=== PATIENT | female | born 1990 | race African-American/Black ===

== ENCOUNTER 2016-11-02 17:22 | Inpatient (IN) | payer OTHER ==
[2016-11-02] MEDS ORDERED: LEVOFLOXACIN 750MG-D5W PMX 750 MG in DEXTROSE/WATER 1 150ML.BAG IVPB STA (19:24)
--- NOTE | 2016-11-02 19:35 | ED ---
Skin/Abscess/FB HPI - General Chief complaint: Skin/Abscess/Foreign Body Stated complaint: Abcess Time Seen by Provider: 11/02/16 19:02 Source: patient, RN notes reviewed Mode of arrival: ambulatory Limitations: no limitations - History of Present Illness Initial comments: 26-year-old female presents emergency Department chief complaint abscess. Patient states started last 3-4 days. Patient states that she has an abscess in her buttocks, vaginal region. Patient states there is severe amount of swelling. Patient states that she's never had any like this in the past. Denies any MRSA VRE. Patient states she is so unbearable that she cannot sit, walk or stand. Patient denies fever, chills. - Related Data Home Medications Medication Instructions Recorded Confirmed No Known Home Medications [No 11/02/16 11/02/16 Known Home Medications] Allergies Allergy/AdvReac Type Severity Reaction Status Date / Time latex Allergy Rash/Hives Verified 11/02/16 19:18 Review of Systems ROS Statement: Those systems with pertinent positive or pertinent negative responses have been documented in the HPI. ROS Other: All systems not noted in ROS Statement are negative. Past Medical History Past Medical History: No Reported History History of Any Multi-Drug Resistant Organisms: None Reported Past Surgical History: Section, Cholecystectomy, Tubal Ligation Additional Past Surgical History / Comment(s): 2008 AND 2015 (c/s) and 2010 ( cholecyst) Past Anesthesia/Blood Transfusion Reactions: No Reported Reaction Past Psychological History: Anxiety, Bipolar, Depression Additional Psychological History / Comment(s): no meds currently with preg. prev on seraquel, xanax and klonipen. ON HOLD UNTIL FOLLOW UP WITH DR. DONNELLY Smoking Status: Current every day smoker Past Alcohol Use History: None Reported Past Drug Use History: None Reported - Past Family History Mother Family Medical History: Asthma, COPD, Diabetes Mellitus, Hypertension Additional Family Medical History / Comment(s): depression, anxiety, sleep apnea , Father Family Medical History: Hypertension Additional Family Medical History / Comment(s): arthritis General Exam Limitations: no limitations General appearance: alert, in no apparent distress Head exam: Present: atraumatic, normocephalic, normal inspection Respiratory exam: Present: normal lung sounds bilaterally. Absent: respiratory distress, wheezes, rales, rhonchi, stridor Cardiovascular Exam: Present: regular rate, normal rhythm, normal heart sounds. Absent: systolic murmur, diastolic murmur, rubs, gallop, clicks GI/Abdominal exam: Present: soft, normal bowel sounds. Absent: distended, tenderness, guarding, rebound, rigid External exam: Present: other (Exam performed with an RN there is diffuse swelling and tenderness noted from the lower dental region towards her rectum with an area of fluctuance) Neurological exam: Present: alert, oriented X3, CN II-XII intact Skin exam: Present: warm, dry, intact, normal color. Absent: rash Course Vital Signs 11/02/16 17:59 Temperature 99.5 F Pulse Rate 89 Respiratory 20 Rate Blood Pressure 137/73 O2 Sat by Pulse 100 Oximetry Procedures - Incision & Drainage Consent Obtained: verbal consent Site: vulva/vagina Size (cm): 5 Anesthetic Used: lidocaine 1%, without epi Amount (mLs): 3 I&D Cleaning Method: Chloroprep Sterile Field Used?: Yes Scalpel Used: #11 I&D Drainage Obtained: Pus, Blood Patient Tolerated Procedure: well Medical Decision Making - Lab Data Result diagrams: 11/02/16 19:25 11/02/16 19:25 Lab Results 11/02/16 11/02/16 Range/Units 19:25 19:25 WBC 15.7 H (3.8-10.6) k/uL RBC 4.66 (3.80-5.40) m/uL Hgb 13.1 (11.4-16.0) gm/dL Hct 41.8 (34.0-46.0) % MCV 89.7 (80.0-100.0) fL MCH 28.0 (25.0-35.0) pg MCHC 31.3 (31.0-37.0) g/dL RDW 14.6 (11.5-15.5) % Plt Count 339 (150-450) k/uL Neutrophils % 83 % Lymphocytes % 11 % Monocytes % 3 % Eosinophils % 2 % Basophils % 0 % Neutrophils # 13.1 H (1.3-7.7) k/uL Lymphocytes # 1.8 (1.0-4.8) k/uL Monocytes # 0.5 (0-1.0) k/uL Eosinophils # 0.3 (0-0.7) k/uL Basophils # 0.1 (0-0.2) k/uL Hypochromasia Slight Sodium 142 (137-145) mmol/L Potassium 4.7 (3.5-5.1) mmol/L Chloride 106 (98-107) mmol/L Carbon Dioxide 26 (22-30) mmol/L Anion Gap 10 mmol/L BUN 13 (7-17) mg/dL Creatinine 0.62 (0.52-1.04) mg/dL Est GFR (MDRD) Af Amer >60 (>60 ml/min/1.73 sqM) Est GFR (MDRD) Non-Af >60 (>60 ml/min/1.73 sqM) Glucose 87 (74-99) mg/dL Calcium 9.4 (8.4-10.2) mg/dL Total Bilirubin 0.6 (0.2-1.3) mg/dL AST 21 (14-36) U/L ALT 15 (9-52) U/L Alkaline Phosphatase 57 (38-126) U/L Total Protein 7.3 (6.3-8.2) g/dL Albumin 4.1 (3.5-5.0) g/dL Disposition Clinical Impression: Abscess of groin, left Disposition: ADMITTED IP TO THIS HOSP
[2016-11-02 19:52] LABS: Basophils # (A) 0.1 k/uL (0-0.2); Basophils % (A) 0 %; CH 27.8; CHCM 31.2; Eosinophils # (A) 0.3 k/uL (0-0.7); Eosinophils % (A) 2 %; HCT 41.8 % (34.0-46.0); HGB 13.1 gm/dL (11.4-16.0); Hypochromasia Slight; Luc # (Auto) 0.11; Luc % (Auto) 1; Lymphocytes # (A) 1.8 k/uL (1.0-4.8); Lymphocytes % (A) 11 %; MCHC 31.3 g/dL (31.0-37.0); MCV 89.7 fL (80.0-100.0); Mean Platelet Volume 8.2; Monocytes # (A) 0.5 k/uL (0-1.0); Monocytes % (A) 3 %; Neutrophils # (A) 13.1 k/uL (1.3-7.7); Neutrophils % (A) 83 %; RBC 4.66 m/uL (3.80-5.40); RDW 14.6 % (11.5-15.5); WBC 15.7 k/uL (3.8-10.6); WBC (Perox) 16.59
[2016-11-02 20:01] LABS: ALT 15 U/L (9-52); AST 21 U/L (14-36); Alkaline Phosphatase 57 U/L (38-126); Anion Gap 10 mmol/L; Blood Urea Nitrogen 13 mg/dL (7-17); Calcium 9.4 mg/dL (8.4-10.2); Carbon Dioxide 26 mmol/L (22-30); Chloride 106 mmol/L (98-107); Glucose 87 mg/dL (74-99); Non-African American GFR(MDRD) >60 (>60 ml/min/1.73 sqM); Potassium 4.7 mmol/L (3.5-5.1); Sodium 142 mmol/L (137-145); Total Bilirubin 0.6 mg/dL (0.2-1.3); Total Protein 7.3 g/dL (6.3-8.2)
--- NOTE | 2016-11-02 20:31 | US ---
EXAMINATION TYPE: US pelvic limited DATE OF EXAM: 11/02/2016 8:22 PM COMPARISON: NONE CLINICAL HISTORY: abscess. Patient can feel a lump in the perineal area x2 days. Pain TECHNOLOGIST IMPRESSION: Complex area visualized at the area of the patient's palpable lump measurin g 4.7 x 1.8 x 2.4 cm IMPRESSION: There is an approximate 5 x 2 cm predominantly cystic mass in the area of concern consis tent with abscess and less likely hematoma.
[2016-11-02] MEDS ORDERED: MORPHINE SULFATE 4 MG/ML SYRINGE IVP STA (21:09)
[2016-11-02] MEDS ORDERED: ONDANSETRON 4 MG/2 ML VIAL IVP STA (21:09)
[2016-11-02] MEDS ORDERED: ONDANSETRON 4 MG/2 ML VIAL IVP PRN (21:16)
[2016-11-02] MEDS ORDERED: NALOXONE 0.4 MG/ML 1 ML VIAL IV PRN (21:16)
[2016-11-02] MEDS ORDERED: ACETAMINOPHEN TAB 325 MG TAB PO PRN (21:16)
[2016-11-02 22:16] VITALS: BMI 37.5
[2016-11-03] MEDS: metroNIDAZOLE-NS PMX 500 MG in SALINE 1 100ML.BAG IVPB SCH ×4 (00:06→23:32)
[2016-11-03] MEDS: MORPHINE SULFATE 4 MG/ML SYRINGE IV PRN ×4 (01:28→20:59)
--- NOTE | 2016-11-03 10:16 | P.GSCN ---
History of Present Illness Consult date: 11/03/16 Reason for Consult: Perirectal abscess History of present illness: This is a 26-year-old female who presented to the emergency room with complaints of perirectal and groin pain. The patient was seen emergency room and underwent incision and drainage of a abscess. The patient received antibiotics overnight. She states she feels better this morning. Review of Systems - Constitutional Reports as per HPI Past Medical History Past Medical History: No Reported History History of Any Multi-Drug Resistant Organisms: None Reported Past Surgical History: Section, Cholecystectomy, Tubal Ligation Additional Past Surgical History / Comment(s): 2008 AND 2015 (c/s) and 2010 ( cholecyst) Past Anesthesia/Blood Transfusion Reactions: No Reported Reaction Past Psychological History: Anxiety, Bipolar, Depression Additional Psychological History / Comment(s): no meds currently with preg. prev on seraquel, xanax and klonipen. ON HOLD UNTIL FOLLOW UP WITH DR. DONNELLY Smoking Status: Current every day smoker Past Alcohol Use History: None Reported Past Drug Use History: None Reported - Past Family History Mother Family Medical History: Asthma, COPD, Diabetes Mellitus, Hypertension Additional Family Medical History / Comment(s): depression, anxiety, sleep apnea , Father Family Medical History: Hypertension Additional Family Medical History / Comment(s): arthritis Medications and Allergies Home Medications Medication Instructions Recorded Confirmed Type No Known Home Medications [No 11/02/16 11/02/16 History Known Home Medications] Allergies Allergy/AdvReac Type Severity Reaction Status Date / Time latex Allergy Rash/Hives Verified 11/02/16 22:08 Surgical - Exam Vital Signs Temp Pulse Resp BP Pulse Ox 99.5 F 89 20 137/73 100 11/02/16 17:59 11/02/16 17:59 11/02/16 17:59 11/02/16 17:59 11/02/16 17:59 - General well developed, no distress - ENT normal pinna - Neck no masses - Respiratory normal expansion - Cardiovascular Rhythm: regular - Abdomen Abdomen: soft, non tender - Integumentary Perineal areas examined. There is no evidence of cellulitis. There is a tender area on the left perirectal area. There is no fluctuant masses palpated. Results - Labs 11/02/16 19:25 11/02/16 19:25 Assessment and Plan Plan: Status post incision and drainage of perirectal abscess. Patient received IV antibiotic. At this point no further incision drainage is planned.
[2016-11-03 10:30] LABS: Basophils # (A) 0.1 k/uL (0-0.2); Basophils % (A) 1 %; CH 27.7; CHCM 30.5; Eosinophils # (A) 0.2 k/uL (0-0.7); Eosinophils % (A) 2 %; HGB 11.4 gm/dL (11.4-16.0); Hypochromasia Moderate; Luc # (Auto) 0.22; Luc % (Auto) 2; Lymphocytes # (A) 2.2 k/uL (1.0-4.8); Lymphocytes % (A) 21 %; MCH 27.5 pg (25.0-35.0); MCHC 30.1 g/dL (31.0-37.0); MCV 91.3 fL (80.0-100.0); Mean Platelet Volume 8.2; Monocytes # (A) 0.5 k/uL (0-1.0); Monocytes % (A) 5 %; Neutrophils # (A) 7.3 k/uL (1.3-7.7); Neutrophils % (A) 70 %; RBC 4.16 m/uL (3.80-5.40); RDW 14.7 % (11.5-15.5); WBC 10.5 k/uL (3.8-10.6); WBC (Perox) 9.45
[2016-11-03] MEDS: PANTOPRAZOLE 40 MG/10 ML VIAL IVP SCH (12:44)
[2016-11-03] MEDS ORDERED: HYDROmorphone 1 MG/ML 1 ML SYRINGE IVP PRN (14:13)
[2016-11-03] MEDS ORDERED: TEMAZEPAM 15 MG CAP PO PRN (14:13)
[2016-11-03] MEDS ORDERED: LORazepam 1 MG TAB PO PRN (14:13)
[2016-11-03] MEDS: HYDROcodone/APAP 5-325MG 1 EACH TAB PO PRN ×3 (14:33→23:32)
[2016-11-03] MEDS: NICOTINE 14MG/24HR PATCH TRANSDERM SCH (14:38)
[2016-11-03] MEDS: HEPARIN SODIUM,PORCINE 5,000 UNIT/ML 1 ML VIAL SQ SCH ×2 (14:39→23:32)
--- NOTE | 2016-11-03 16:57 | HP ---
DATE OF ADMISSION: 11/03/2016 CHIEF COMPLAINT: Perirectal pain and abscess. HISTORY OF PRESENT ILLNESS: This 26-year-old woman with a past medical history of cholecystectomy, section, anxiety, bipolar, depression being followed by Dr. Celis in the outpatient setting was noted to have pain and swelling around the rectal area, about 3 to 4 days. The patient had a perirectal abscess and the patient had incision and drainage in the ER and then . Dr. Liu is following the patient closely. The patient also had bumps in the axilla without any drainage, according to her. There is no history of any fever, rigors. No history of headache, loss of consciousness. PAST MEDICAL HISTORY: History of section, cholecystectomy, tubal ligation, anxiety, bipolar depression. Home medications are none. ALLERGIES: LATEX. FAMILY HISTORY: History of asthma, COPD, diabetes mellitus, hypertension, depression in the family. 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 History of smoking. No history of alcohol. REVIEW OF SYSTEMS: ENT: No diminished vision. No diminished hearing. CARDIOVASCULAR: No angina or palpitations. RESPIRATORY: No cough. GI: No nausea. : No dysuria. NERVOUS: No numbness or weakness. ALLERGY/IMMUNOLOGY: No asthma or hay fever. MUSCULOSKELETAL: As mentioned earlier. HEMATOLOGY/ONCOLOGY: No history of anemia. ENDOCRINE: No history of diabetes, hypothyroid. CONSTITUTIONAL: As mentioned earlier. DERMATOLOGY: As mentioned earlier mentioned earlier. RHEUMATOLOGY: Negative. PSYCHIATRY: As mentioned earlier. PHYSICAL EXAMINATION: Alert and oriented x3. Pulse of 74 blood pressure 112/66, respirations 19, temperature 96.5, pulse ox 99% on room air. HEENT: Conjunctivae normal. Oral mucosa moist. NECK: No jugular venous distention. No carotid bruits. No lymph node enlargement. CARDIOVASCULAR: S1 and S2 muffled. No S3. No S4. RESPIRATORY: Breath sounds diminished in the bases. A few scattered rhonchi and crackles. Abdomen is soft and nontender. No mass palpable. LEGS: No edema. No swelling. NERVOUS SYSTEM: No focal deficits. The patient has perirectal abscess, status post incision and drainage. JOINTS: No active deforming arthropathy. LABS: WBC 15.7. IMPRESSION: 1. Systemic inflammatory response syndrome, present on admission, status post incision and drainage. 2. Increased WBC. 3. History of nicotine dependence. 4. History of section. 5. History of cholecystectomy. 6. History of tubal ligation. 7. Anxiety, bipolar depression. 8. FULL CODE. RECOMMENDATIONS AND DISCUSSION: In this 26-year-old woman who presented with multiple complex medical issues, we will monitor to monitor the patient closely. Continue the current medications. Continue symptomatic treatment. Otherwise at this time, I would recommend continuing with the antibiotics. I would also recommend to follow with surgery. We will follow the cultures. Otherwise, guarded prognosis because of multiple complex medical issues. Further recommendations to follow. A copy of this will be forwarded to Dr. Celis, who is the primary physician. CINDY
[2016-11-03] MEDS: ONDANSETRON 4 MG/2 ML VIAL IVP PRN (17:43)
[2016-11-04] MEDS: MORPHINE SULFATE 4 MG/ML SYRINGE IV PRN ×2 (00:49→08:55)
[2016-11-04] MEDS: HYDROcodone/APAP 5-325MG 1 EACH TAB PO PRN ×2 (06:02→11:38)
[2016-11-04 07:25] LABS: Basophils % (A) 1 %; CH 27.2; CHCM 30.7; Eosinophils # (A) 0.2 k/uL (0-0.7); Eosinophils % (A) 2 %; HCT 37.1 % (34.0-46.0); HGB 11.5 gm/dL (11.4-16.0); Hypochromasia Moderate; Luc # (Auto) 0.08; Luc % (Auto) 1; Lymphocytes # (A) 2.5 k/uL (1.0-4.8); Lymphocytes % (A) 33 %; MCH 27.6 pg (25.0-35.0); MCV 89.1 fL (80.0-100.0); Monocytes # (A) 0.3 k/uL (0-1.0); Monocytes % (A) 4 %; Neutrophils # (A) 4.5 k/uL (1.3-7.7); Neutrophils % (A) 59 %; RBC 4.17 m/uL (3.80-5.40); RDW 14.5 % (11.5-15.5); WBC 7.5 k/uL (3.8-10.6); WBC (Perox) 7.73
[2016-11-04 07:42] LABS: Anion Gap 8 mmol/L; Blood Urea Nitrogen 13 mg/dL (7-17); Calcium 8.2 mg/dL (8.4-10.2); Carbon Dioxide 25 mmol/L (22-30); Chloride 107 mmol/L (98-107); Glucose 87 mg/dL (74-99); Non-African American GFR(MDRD) >60 (>60 ml/min/1.73 sqM); Potassium 4.4 mmol/L (3.5-5.1); Sodium 140 mmol/L (137-145)
[2016-11-04] MEDS: PANTOPRAZOLE 40 MG/10 ML VIAL IVP SCH (08:54)
[2016-11-04] MEDS: ONDANSETRON 4 MG/2 ML VIAL IVP PRN (08:54)
[2016-11-04] MEDS: HEPARIN SODIUM,PORCINE 5,000 UNIT/ML 1 ML VIAL SQ SCH (08:55)
[2016-11-04] MEDS: metroNIDAZOLE-NS PMX 500 MG in SALINE 1 100ML.BAG IVPB SCH ×2 (09:33→16:01)
[2016-11-04] MEDS: NICOTINE 14MG/24HR PATCH TRANSDERM SCH (11:39)
[2016-11-04] MEDS ORDERED: MULTIVITAMINS, THERA 1 EACH TAB PO SCH (12:00)
[2016-11-04 13:17] VITALS: BP 117/66; PULSE 79; RESP 20; TEMP 98.2
--- NOTE | 2016-11-04 13:58 | P.PN ---
Subjective Principal diagnosis: Perirectal abscess Patient is a 26-year-old female admitted with perirectal abscess status post incision and drainage in the emergency department. Patient continues on IV antibiotics in the form of Flagyl. Upon examination, patient complains of mild nausea after eating breakfast without vomiting. Denies chills, fevers, shortness of breath, chest pain, or abdominal pain. Patient reports perirectal pain at rest and with movement. Patient is afebrile. Hemodynamically stable. No evidence of leukocytosis. Abscess continues to drain minimally. Patient continues with warm compresses. Objective - Vital Signs Vital signs: Vital Signs Temp 98.2 F 11/04/16 13:12 Pulse 79 11/04/16 13:12 Resp 20 11/04/16 13:12 BP 117/66 11/04/16 13:12 Pulse Ox 99 11/04/16 13:12 Intake & Output 11/03/16 11/04/16 11/04/16 18:59 06:59 18:59 Intake Total 120 Balance 120 Intake: Oral 120 Other: # Voids 1 1 - Exam GENERAL: Pt awake and alert, well-appearing, well-nourished, and in no acute distress. LUNGS: Breath sounds clear to auscultation bilaterally. No wheezes, rales, or rhonchi. HEART: Heart S1, S2, no S3 or S4. Regular rate and rhythm. No murmurs, rubs or gallops. ABDOMEN: Soft, nontender, nondistended, normoactive bowel sounds. No guarding, no rebound. No masses or organomegaly appreciated. NEUROLOGICAL: Pt oriented x 3. Cranial nerves II through XII grossly intact. Strength and sensation grossly intact. SKIN: Tender area to left perirectal area, no evidence of cellulitis, no fluctuant mass palpated. - Labs CBC & Chem 7: 11/04/16 07:07 11/04/16 07:07 Labs: Abnormal Lab Results - Last 24 Hours (Table) 11/04/16 Range/Units 07:07 Calcium 8.2 L (8.4-10.2) mg/dL Assessment and Plan Plan: Impression: 1. Perirectal abscess status post incision and drainage. Plan: 1. Continue IV antibiotics. Continue warm compresses. Await culture results. Continue supportive treatment and pain management. Continue medical management. No further incision and drainage is planned at this point. The above impression and plan have been discussed and directed by Dr. Liu. Arun SMITH acting as scribe for Dr. Liu.
[2016-11-04] MEDS ORDERED: KETOROLAC 30 MG/ML 1 ML VIAL IVP SCH (14:15)
--- NOTE | 2016-11-04 16:40 | P.DS ---
Providers Date of admission: 11/02/16 21:03 Attending physician: Koby Trujillo Consults: 11/02/16 21:16 Consult Physician Stat Consulting Provider: Rogelio Liu Consult Reason/Comments: groin abscess Do you want consulting provider notified?: Yes Primary care physician: Vimal Flanagan [facility] Course: This is a 26-year-old is admitted to the hospital with the perianal pain. Patient was noted to have a large area of cystic swelling with associated induration in the left perianal region. A ultrasound did confirm a possibility of abscess. Patient had a I/D was done in the emergency room. Preliminary growth shows gram-positive cocci. However patient is clinically significantly improved. States to not have any fevers chills nausea vomiting or diarrhea at this time. Patient does not have any history of MRSA infections in the past. Physical exam Gen. appearance oriented 3 in no distress Neck is supple no JVD Lungs good air entry clear to auscultation no rhonchi or wheezing Heart S1-S2 heard regular rate and rhythm no murmurs appreciated Abdomen is soft nontender no organomegaly bowel sounds are intact Neurologically cranial nerves II-12 grossly intact no focal motor or sensory deficits noted Skin no abnormalities appreciated Perineal exam slight induration noted on the left perianal region appropriate tender palpation no associated erythema is not expressive #1 perianal abscess Plan We'll discharge the patient on Cipro and Flagyl for 10 days patient can follow- up with Dr. Liu Plan - Discharge Summary New Discharge Prescriptions: Ciprofloxacin HCl [Cipro] 500 mg PO Q12HR #20 tablet Ibuprofen [Motrin] 800 mg PO TID PRN #30 tab PRN Reason: Pain metroNIDAZOLE [Flagyl] 500 mg PO TID #30 tab Discharge Medication List Ciprofloxacin HCl [Cipro] 500 mg PO Q12HR #20 tablet 11/04/16 [Rx] Ibuprofen [Motrin] 800 mg PO TID PRN #30 tab 11/04/16 [Rx] metroNIDAZOLE [Flagyl] 500 mg PO TID #30 tab 11/04/16 [Rx] Follow up Appointment(s)/Referral(s): Panchito Celis MD [Primary Care Provider] - 1-2 days Rogelio Liu MD [STAFF PHYSICIAN] - 1 Week Activity/Diet/Wound Care/Special Instructions: Change dressing daily. Bandage over it. Recommended to stay off work till 11/06/16 Discharge Disposition: HOME SELF-CARE
[2016-11-05] MEDS ORDERED: PANTOPRAZOLE 40 MG TABLET PO SCH (09:00)
== END 2016-11-04 18:10 | disposition home or self-care (01) | DRG 989 ==
LOC: EC 17:22 → 6PED 21:03
PROVIDERS: ADMIT Hospitalist; ATTEND Hospitalist
PROC: 0U9M0ZZ Drainage of Vulva, Open Approach (ICD-10-PCS; principal; 2016-11-02)
DX: K61.2 Anorectal abscess (principal); F32.9 Major depressive disorder, single episode, unspecified; F41.9 Anxiety disorder, unspecified; F17.200 Nicotine dependence, unspecified, uncomplicated; Z82.49 Family history of ischemic heart disease and other diseases of the circulatory system
CPT/HCPCS: 36415; 56405; 76857; 80048; 80053; 85025; 87040; 87070; 87205; 96365; 96366; 96375; 99285

== ENCOUNTER 2017-01-15 15:49 | Emergency (ER) | payer OTHER ==
[2017-01-15 15:59] VITALS: BP 131/67; PULSE 90; RESP 20; TEMP 98.8
[2017-01-15] MEDS ORDERED: SODIUM CHLORIDE 0.9% 500 ML IV STA (16:48)
[2017-01-15] MEDS ORDERED: ONDANSETRON 4 MG/2 ML VIAL IVP STA (16:48)
[2017-01-15 17:19] LABS: Basophils # (A) 0.1 k/uL (0-0.2); Basophils % (A) 1 %; CH 27.2; CHCM 31.1; Eosinophils # (A) 0.3 k/uL (0-0.7); Eosinophils % (A) 2 %; HCT 40.8 % (34.0-46.0); HGB 12.6 gm/dL (11.4-16.0); Hypochromasia Slight; Luc # (Auto) 0.16; Luc % (Auto) 1; Lymphocytes # (A) 3.1 k/uL (1.0-4.8); Lymphocytes % (A) 26 %; MCH 27.2 pg (25.0-35.0); MCHC 30.8 g/dL (31.0-37.0); MCV 88.3 fL (80.0-100.0); Mean Platelet Volume 7.3; Monocytes # (A) 0.4 k/uL (0-1.0); Monocytes % (A) 4 %; Neutrophils % (A) 67 %; RBC 4.63 m/uL (3.80-5.40); RDW 14.5 % (11.5-15.5); WBC (Perox) 11.35
[2017-01-15 17:27] LABS: ALT 26 U/L (9-52); AST 16 U/L (14-36); Alkaline Phosphatase 50 U/L (38-126); Anion Gap 7 mmol/L; Blood Urea Nitrogen 8 mg/dL (7-17); Calcium 9.1 mg/dL (8.4-10.2); Carbon Dioxide 24 mmol/L (22-30); Chloride 110 mmol/L (98-107); Glucose 89 mg/dL (74-99); Non-African American GFR(MDRD) >60 (>60 ml/min/1.73 sqM); Potassium 4.3 mmol/L (3.5-5.1); Sodium 141 mmol/L (137-145); Total Bilirubin 0.5 mg/dL (0.2-1.3); Total Protein 6.5 g/dL (6.3-8.2)
[2017-01-15 17:49] LABS: Amorphous Sediment,Urine Rare /hpf; Appearance,Urine Cloudy (Clear); Bacteria,Urine Few /hpf; Bilirubin,Urine Negative (Negative); Glucose,Urine (UA) Negative (Negative); Ketones,Urine Negative (Negative); Leukocyte Esterase,Urine Negative (Negative); Mucus,Urine Occasional /hpf; Nitrite,Urine Negative (Negative); PH, Urine 5.5 (5.0-8.0); Particle Count 5903; Protein,Urine Negative (Negative); RBC,Urine 1 /hpf (0-5); Specific Gravity,Urine 1.011 (1.001-1.035); Squamous Epithelial Cell,Urine 4 /hpf (0-4); UA Billing (MACRO vs. MICRO) MICRO; Urobilinogen,Urine <2.0 mg/dL (<2.0); WBC,Urine 12 /hpf (0-5)
[2017-01-15] MEDS ORDERED: SULFAMETHOX-TMP 800-160MG 1 EACH TAB PO STA (18:11)
--- NOTE | 2017-01-15 18:11 | ED ---
General Adult HPI - General Chief complaint: Nausea/Vomiting/Diarrhea Stated complaint: Food Poisoning Source: patient Mode of arrival: ambulatory Limitations: no limitations - History of Present Illness Initial comments: 26-year-old -Mexican female presented for evaluation of nausea and vomiting. She states this morning she had a bagel with cream cheese and shortly after that she started having her symptoms this is at about 9:30 over the next R she continued to have vomiting 2 with an episode of diarrhea. She admits to abdominal tenderness but this is only after multiple episodes of emesis. She denies any other symptoms including negative dysuria, chest pain, shortness of breath, fevers, chills. - Related Data Previous Rx's Medication Instructions Recorded Sulfamethox-Tmp 800-160Mg [Bactrim 1 tab PO Q12HR #5 tab 01/15/17 DS 800-160 mg] Allergies Allergy/AdvReac Type Severity Reaction Status Date / Time latex Allergy Rash/Hives Verified 01/15/17 17:05 Review of Systems ROS Statement: Those systems with pertinent positive or pertinent negative responses have been documented in the HPI. ROS Other: All systems not noted in ROS Statement are negative. Constitutional: Denies: fever, chills Eyes: Denies: eye pain, eye discharge, vision change ENT: Denies: ear pain, throat pain Respiratory: Denies: cough, dyspnea Cardiovascular: Denies: chest pain, palpitations, dyspnea on exertion Endocrine: Denies: fatigue, polydipsia, polyuria Gastrointestinal: Reports: abdominal pain, nausea, vomiting, diarrhea. Denies: hematemesis, melena, hematochezia Genitourinary: Denies: urgency, dysuria Musculoskeletal: Denies: back pain, arthralgia, myalgia Skin: Denies: rash, lesions Neurological: Denies: headache, weakness Psychiatric: Denies: anxiety, depression Hematological/Lymphatic: Denies: easy bleeding, easy bruising Past Medical History Past Medical History: No Reported History History of Any Multi-Drug Resistant Organisms: None Reported Past Surgical History: Section, Cholecystectomy, Tubal Ligation Additional Past Surgical History / Comment(s): 2008 AND 2015 (c/s) and 2010 ( cholecyst) Past Anesthesia/Blood Transfusion Reactions: No Reported Reaction Past Psychological History: Anxiety, Bipolar, Depression Additional Psychological History / Comment(s): no meds currently with preg. prev on seraquel, xanax and klonipen. ON HOLD UNTIL FOLLOW UP WITH DR. CELIS Smoking Status: Current every day smoker Past Alcohol Use History: None Reported Past Drug Use History: None Reported - Past Family History Mother Family Medical History: Asthma, COPD, Diabetes Mellitus, Hypertension Additional Family Medical History / Comment(s): depression, anxiety, sleep apnea , Father Family Medical History: Hypertension Additional Family Medical History / Comment(s): arthritis General Exam Limitations: no limitations General appearance: alert, in no apparent distress Head exam: Present: atraumatic, normocephalic, normal inspection Eye exam: Present: normal appearance, PERRL, EOMI. Absent: scleral icterus, conjunctival injection, periorbital swelling ENT exam: Present: normal exam, mucous membranes moist Neck exam: Present: normal inspection. Absent: tenderness, meningismus, lymphadenopathy Respiratory exam: Present: normal lung sounds bilaterally. Absent: respiratory distress, wheezes, rales, rhonchi, stridor Cardiovascular Exam: Present: regular rate, normal rhythm, normal heart sounds. Absent: systolic murmur, diastolic murmur, rubs, gallop, clicks GI/Abdominal exam: Present: soft, normal bowel sounds. Absent: distended, tenderness, guarding, rebound, rigid Rectal exam: Present: deferred Extremities exam: Present: normal inspection, full ROM, normal capillary refill. Absent: tenderness, pedal edema, joint swelling, calf tenderness Back exam: Present: normal inspection Neurological exam: Present: alert, oriented X3, CN II-XII intact Psychiatric exam: Present: normal affect, normal mood Skin exam: Present: warm, dry, intact, normal color. Absent: rash Course Vital Signs 01/15/17 15:56 Temperature 98.8 F Pulse Rate 90 Respiratory 20 Rate Blood Pressure 131/67 O2 Sat by Pulse 98 Oximetry Medical Decision Making - Medical Decision Making 26-year-old -Mexican female presented for evaluation of nausea and vomiting after suspicious oral intake. She has no other symptoms and was feeling fine all morning prior to eating this food. On physical examination she has a soft abdomen without peritoneal signs of guarding, rigidity, or rebound. The remainder of her physical exam is benign.Labs revealed a mild leukocytosis of 12 over there are no other significant abnormalities. Urine shows some urine WBCs and few bacteria however in the setting of no dysuria or superpubic abdominal discomfort we'll not treat for urinary tract infection as this is not consistent. Patient was reevaluated and stated that she had resolution of all symptoms. The patient was informed of all results and that she would be discharged with instructions to follow-up with her primary care physician but to return to this facility if her symptoms should worsen or persist. She acknowledged an understanding of this information and agreed with this plan of care. - Lab Data Result diagrams: 01/15/17 17:10 01/15/17 17:10 Lab Results 01/15/17 01/15/17 01/15/17 Range/Units 17:10 17:10 17:25 WBC 12.0 H (3.8-10.6) k/uL RBC 4.63 (3.80-5.40) m/uL Hgb 12.6 (11.4-16.0) gm/dL Hct 40.8 (34.0-46.0) % MCV 88.3 (80.0-100.0) fL MCH 27.2 (25.0-35.0) pg MCHC 30.8 L (31.0-37.0) g/dL RDW 14.5 (11.5-15.5) % Plt Count 328 (150-450) k/uL Neutrophils % 67 % Lymphocytes % 26 % Monocytes % 4 % Eosinophils % 2 % Basophils % 1 % Neutrophils # 8.0 H (1.3-7.7) k/uL Lymphocytes # 3.1 (1.0-4.8) k/uL Monocytes # 0.4 (0-1.0) k/uL Eosinophils # 0.3 (0-0.7) k/uL Basophils # 0.1 (0-0.2) k/uL Hypochromasia Slight Sodium 141 (137-145) mmol/L Potassium 4.3 (3.5-5.1) mmol/L Chloride 110 H (98-107) mmol/L Carbon Dioxide 24 (22-30) mmol/L Anion Gap 7 mmol/L BUN 8 (7-17) mg/dL Creatinine 0.63 (0.52-1.04) mg/dL Est GFR (MDRD) Af Amer >60 (>60 ml/min/1.73 sqM) Est GFR (MDRD) Non-Af >60 (>60 ml/min/1.73 sqM) Glucose 89 (74-99) mg/dL Calcium 9.1 (8.4-10.2) mg/dL Total Bilirubin 0.5 (0.2-1.3) mg/dL AST 16 (14-36) U/L ALT 26 (9-52) U/L Alkaline Phosphatase 50 (38-126) U/L Total Protein 6.5 (6.3-8.2) g/dL Albumin 3.7 (3.5-5.0) g/dL Lipase 77 (23-300) U/L Urine Color Urine Appearance (Clear) Urine pH (5.0-8.0) Ur Specific [place] (1.001-1.035) Urine Protein (Negative) Urine Glucose (UA) (Negative) Urine Ketones (Negative) Urine Blood (Negative) Urine Nitrite (Negative) Urine Bilirubin (Negative) Urine Urobilinogen (<2.0) mg/dL Ur Leukocyte Esterase (Negative) Urine RBC (0-5) /hpf Urine WBC (0-5) /hpf Ur Squamous Epith Cells (0-4) /hpf Amorphous Sediment (None) /hpf Urine Bacteria (None) /hpf Urine Mucus (None) /hpf Urine HCG, Qual Not Detected (Not Detectd) 01/15/17 Range/Units 17:25 WBC (3.8-10.6) k/uL RBC (3.80-5.40) m/uL Hgb (11.4-16.0) gm/dL Hct (34.0-46.0) % MCV (80.0-100.0) fL MCH (25.0-35.0) pg MCHC (31.0-37.0) g/dL RDW (11.5-15.5) % Plt Count (150-450) k/uL Neutrophils % % Lymphocytes % % Monocytes % % Eosinophils % % Basophils % % Neutrophils # (1.3-7.7) k/uL Lymphocytes # (1.0-4.8) k/uL Monocytes # (0-1.0) k/uL Eosinophils # (0-0.7) k/uL Basophils # (0-0.2) k/uL Hypochromasia Sodium (137-145) mmol/L Potassium (3.5-5.1) mmol/L Chloride (98-107) mmol/L Carbon Dioxide (22-30) mmol/L Anion Gap mmol/L BUN (7-17) mg/dL Creatinine (0.52-1.04) mg/dL Est GFR (MDRD) Af Amer (>60 ml/min/1.73 sqM) Est GFR (MDRD) Non-Af (>60 ml/min/1.73 sqM) Glucose (74-99) mg/dL Calcium (8.4-10.2) mg/dL Total Bilirubin (0.2-1.3) mg/dL AST (14-36) U/L ALT (9-52) U/L Alkaline Phosphatase (38-126) U/L Total Protein (6.3-8.2) g/dL Albumin (3.5-5.0) g/dL Lipase (23-300) U/L Urine Color Yellow Urine Appearance Cloudy H (Clear) Urine pH 5.5 (5.0-8.0) Ur Specific [place] 1.011 (1.001-1.035) Urine Protein Negative (Negative) Urine Glucose (UA) Negative (Negative) Urine Ketones Negative (Negative) Urine Blood Negative (Negative) Urine Nitrite Negative (Negative) Urine Bilirubin Negative (Negative) Urine Urobilinogen <2.0 (<2.0) mg/dL Ur Leukocyte Esterase Negative (Negative) Urine RBC 1 (0-5) /hpf Urine WBC 12 H (0-5) /hpf Ur Squamous Epith Cells 4 (0-4) /hpf Amorphous Sediment Rare H (None) /hpf Urine Bacteria Few H (None) /hpf Urine Mucus Occasional H (None) /hpf Urine HCG, Qual (Not Detectd) Disposition Clinical Impression: UTI (urinary tract infection), Nausea & vomiting Disposition: HOME SELF-CARE Condition: Stable Instructions: Urinary Tract Infection in Women (ED) Additional Instructions: Please use medication as discussed. Please follow up with family doctor if symptoms have not improved over the next two days. Please return to the emergency room if your symptoms increase or worsen or for any other concerns. Prescriptions: Sulfamethox-Tmp 800-160Mg [Bactrim DS 800-160 mg] 1 tab PO Q12HR #5 tab Referrals: Panchito Celis MD [Primary Care Provider] - 1-2 days Time of Disposition: 18:14
== END 2017-01-15 18:51 | disposition home or self-care (01) ==
LOC: EC 15:49
DX: N39.0 Urinary tract infection, site not specified (principal); D72.829 Elevated white blood cell count, unspecified; R11.2 Nausea with vomiting, unspecified; F17.200 Nicotine dependence, unspecified, uncomplicated; Z91.040 Latex allergy status
CPT/HCPCS: 36415; 80053; 83690; 85025; 81001; 81025; 99284; 96374; J2405

== ENCOUNTER 2017-05-13 16:51 | Emergency (ER) | payer OTHER ==
--- NOTE | 2017-05-13 18:31 | ED ---
SOB HPI - General Chief Complaint: Shortness of Breath Stated Complaint: CLIFFORD Time Seen by Provider: 05/13/17 17:35 Source: patient Mode of arrival: ambulatory Limitations: no limitations - History of Present Illness Initial Comments: 26 years old female presenting with chest pain ongoing for 2 days chest pain radiates towards her back and she is also short winded complaining about the chest pain with deep breaths. Denies any fever no chills she is not coughing up any phlegm. She does have a history of asthma and have been smoking. She denies any history of DVT or PE today her surgical history is quite significant chair and 2 C-sections she status post gallbladder and tubal ligation. Review of system is otherwise unremarkable - Related Data Home Medications Medication Instructions Recorded Confirmed Acetaminophen [Tylenol] 650 mg PO BID PRN 05/13/17 05/13/17 Allergies Allergy/AdvReac Type Severity Reaction Status Date / Time latex Allergy Rash/Hives Verified 05/13/17 17:44 Review of Systems ROS Statement: Those systems with pertinent positive or pertinent negative responses have been documented in the HPI. ROS Other: All systems not noted in ROS Statement are negative. Past Medical History Past Medical History: No Reported History History of Any Multi-Drug Resistant Organisms: None Reported Past Surgical History: Section, Cholecystectomy, Tubal Ligation Additional Past Surgical History / Comment(s): 2008 AND 2015 (c/s) and 2010 ( cholecyst) Past Anesthesia/Blood Transfusion Reactions: No Reported Reaction Past Psychological History: Anxiety, Bipolar, Depression Smoking Status: Current every day smoker Past Alcohol Use History: None Reported, Occasional Past Drug Use History: None Reported - Past Family History Mother Family Medical History: Asthma, COPD, Diabetes Mellitus, Hypertension Additional Family Medical History / Comment(s): depression, anxiety, sleep apnea , Father Family Medical History: Hypertension Additional Family Medical History / Comment(s): arthritis General Exam - General Exam Comments Initial Comments: General: The patient is awake and alert, in no distress, and does not appear acutely ill. She looks anxious Skin: Skin is warm and dry and no rashes or lesions are noted. Eye: Pupils are equal, round and reactive to light, extra-ocular movements are intact; there is normal conjunctiva bilaterally. Ears, nose, mouth and throat: There are moist mucous membranes and no oral lesions. Neck: The neck is supple, there is no tenderness or JVD. Cardiovascular: There is a regular rate and rhythm. No murmur, rub or gallop is appreciated. Respiratory: To auscultation bilateral, no obvious wheezing noticed Gastrointestinal: Soft, non-distended, non-tender abdomen without masses or organomegaly noted. There is no rebound or guarding present. Bowel sounds are unremarkable. Back: There is no tenderness to palpation in the midline. There is no obvious deformity. Musculoskeletal: Normal ROM, no tenderness, There is no pedal edema. There is no calf tenderness or swelling. No cords were appreciated. Neurological: CN II-XII intact, Cranial nerves III through XII are intact. There are no obvious motor or sensory deficits. Coordination appears grossly intact. Speech is normal. Psychiatric: Cooperative, appropriate mood & affect, normal judgment. Limitations: no limitations Course Vital Signs 05/13/17 17:38 Temperature 98.9 F Pulse Rate 88 Respiratory 18 Rate Blood Pressure 129/68 O2 Sat by Pulse 98 Oximetry EKG is normal sinus rhythm medical rate is 80 AL interval is 196 QRS duration is 86 QT/QTc is 382/440 review of this EKG does not reveal any ST elevation or ST depression She is reassessed at 1940, CBC, troponin are negative beta hCG is negative as well and shows a chest x-ray at this point CT chest angiogram to rule out PE is pending once we had the CT report patient's disposition be completed - Reevaluation(s) Reevaluation #1: 05/13/17 20:18 CT angiogram normal, she would be advised to see [facility] for follow-up on her chest pain as outpatient and she'll follow-up with her family doctor Medical Decision Making - Lab Data Result diagrams: 05/13/17 18:24 05/13/17 18:24 Lab Results 05/13/17 05/13/17 05/13/17 Range/Units 18:24 18:24 18:24 WBC 11.6 H (3.8-10.6) k/uL RBC 4.35 (3.80-5.40) m/uL Hgb 12.0 (11.4-16.0) gm/dL Hct 37.5 (34.0-46.0) % MCV 86.2 (80.0-100.0) fL MCH 27.6 (25.0-35.0) pg MCHC 32.0 (31.0-37.0) g/dL RDW 15.6 H (11.5-15.5) % Plt Count 304 (150-450) k/uL Neutrophils % 72 % Lymphocytes % 18 % Monocytes % 4 % Eosinophils % 4 % Basophils % 1 % Neutrophils # 8.4 H (1.3-7.7) k/uL Lymphocytes # 2.1 (1.0-4.8) k/uL Monocytes # 0.5 (0-1.0) k/uL Eosinophils # 0.5 (0-0.7) k/uL Basophils # 0.1 (0-0.2) k/uL Hypochromasia Moderate PT (9.0-12.0) sec INR (<1.2) APTT (22.0-30.0) sec D-Dimer (<0.60) mg/L FEU Sodium 142 (137-145) mmol/L Potassium 4.6 (3.5-5.1) mmol/L Chloride 110 H (98-107) mmol/L Carbon Dioxide 24 (22-30) mmol/L Anion Gap 8 mmol/L BUN 10 (7-17) mg/dL Creatinine 0.70 (0.52-1.04) mg/dL Est GFR (MDRD) Af Amer >60 (>60 ml/min/1.73 sqM) Est GFR (MDRD) Non-Af >60 (>60 ml/min/1.73 sqM) Glucose 93 (74-99) mg/dL Calcium 9.9 (8.4-10.2) mg/dL Total Bilirubin 0.2 (0.2-1.3) mg/dL AST 15 (14-36) U/L ALT 22 (9-52) U/L Alkaline Phosphatase 57 (38-126) U/L Total Creatine Kinase 50 (30-135) U/L CK-MB (CK-2) <0.2 (0.0-2.4) ng/mL CK-MB (CK-2) Rel Index Troponin I <0.012 (0.000-0.034) ng/mL Total Protein 6.8 (6.3-8.2) g/dL Albumin 3.9 (3.5-5.0) g/dL Urine HCG, Qual (Not Detectd) 05/13/17 05/13/17 Range/Units 18:24 18:34 WBC (3.8-10.6) k/uL RBC (3.80-5.40) m/uL Hgb (11.4-16.0) gm/dL Hct (34.0-46.0) % MCV (80.0-100.0) fL MCH (25.0-35.0) pg MCHC (31.0-37.0) g/dL RDW (11.5-15.5) % Plt Count (150-450) k/uL Neutrophils % % Lymphocytes % % Monocytes % % Eosinophils % % Basophils % % Neutrophils # (1.3-7.7) k/uL Lymphocytes # (1.0-4.8) k/uL Monocytes # (0-1.0) k/uL Eosinophils # (0-0.7) k/uL Basophils # (0-0.2) k/uL Hypochromasia PT 9.8 (9.0-12.0) sec INR 1.0 (<1.2) APTT 23.4 (22.0-30.0) sec D-Dimer 0.70 H (<0.60) mg/L FEU Sodium (137-145) mmol/L Potassium (3.5-5.1) mmol/L Chloride (98-107) mmol/L Carbon Dioxide (22-30) mmol/L Anion Gap mmol/L BUN (7-17) mg/dL Creatinine (0.52-1.04) mg/dL Est GFR (MDRD) Af Amer (>60 ml/min/1.73 sqM) Est GFR (MDRD) Non-Af (>60 ml/min/1.73 sqM) Glucose (74-99) mg/dL Calcium (8.4-10.2) mg/dL Total Bilirubin (0.2-1.3) mg/dL AST (14-36) U/L ALT (9-52) U/L Alkaline Phosphatase (38-126) U/L Total Creatine Kinase (30-135) U/L CK-MB (CK-2) (0.0-2.4) ng/mL CK-MB (CK-2) Rel Index Troponin I (0.000-0.034) ng/mL Total Protein (6.3-8.2) g/dL Albumin (3.5-5.0) g/dL Urine HCG, Qual Not Detected (Not Detectd) Disposition Clinical Impression: Chest pain, Dyspnea, Pleuritic chest pain Disposition: HOME SELF-CARE Condition: Good Instructions: Bronchiolitis (ED) Referrals: Panchito Celis MD [Primary Care Provider] - 1-2 days Myra Gutierrez MD [STAFF PHYSICIAN] - 1-2 days
[2017-05-13 18:39] LABS: Basophils # (A) 0.1 k/uL (0-0.2); Basophils % (A) 1 %; CH 26.4; CHCM 30.9; Eosinophils # (A) 0.5 k/uL (0-0.7); Eosinophils % (A) 4 %; HCT 37.5 % (34.0-46.0); HDW 2.88; Hypochromasia Moderate; Luc # (Auto) 0.16; Luc % (Auto) 1; Lymphocytes # (A) 2.1 k/uL (1.0-4.8); Lymphocytes % (A) 18 %; MCH 27.6 pg (25.0-35.0); MCV 86.2 fL (80.0-100.0); Monocytes # (A) 0.5 k/uL (0-1.0); Monocytes % (A) 4 %; Neutrophils # (A) 8.4 k/uL (1.3-7.7); Neutrophils % (A) 72 %; RBC 4.35 m/uL (3.80-5.40); RDW 15.6 % (11.5-15.5); WBC 11.6 k/uL (3.8-10.6); WBC (Perox) 11.71
[2017-05-13 18:53] LABS: Partial Thromboplastin Time 23.4 sec (22.0-30.0); Prothrombin Time 9.8 sec (9.0-12.0)
[2017-05-13 18:56] LABS: ALT 22 U/L (9-52); AST 15 U/L (14-36); Alkaline Phosphatase 57 U/L (38-126); Anion Gap 8 mmol/L; Blood Urea Nitrogen 10 mg/dL (7-17); Calcium 9.9 mg/dL (8.4-10.2); Carbon Dioxide 24 mmol/L (22-30); Chloride 110 mmol/L (98-107); Glucose 93 mg/dL (74-99); Non-African American GFR(MDRD) >60 (>60 ml/min/1.73 sqM); Potassium 4.6 mmol/L (3.5-5.1); Sodium 142 mmol/L (137-145); Total Bilirubin 0.2 mg/dL (0.2-1.3); Total Protein 6.8 g/dL (6.3-8.2)
[2017-05-13] MEDS ORDERED: RX INFO: IV CONTRAST WAS GIVEN 1 EACH MISC MISCELLANE PRN (18:56)
[2017-05-13 18:58] LABS: Creatine Kinase 50 U/L (30-135)
--- NOTE | 2017-05-13 19:08 | XR ---
EXAMINATION TYPE: XR chest 2V DATE OF EXAM: 05/13/2017 COMPARISON: 03/19/2016 HISTORY: Cough TECHNIQUE: Frontal and lateral views of the chest are obtained. FINDINGS: Heart and mediastinum are normal. Lungs are clear. Diaphragm is normal. Bony thorax is int act. IMPRESSION: Normal chest. No change.
[2017-05-13 19:11] LABS: Creatine Kinase MB <0.2 ng/mL (0.0-2.4); Troponin I <0.012 ng/mL (0.000-0.034)
--- NOTE | 2017-05-13 20:00 | CT ---
EXAMINATION TYPE: CT angio chest DATE OF EXAM: 05/13/2017 7:40 PM COMPARISON: 03/19/2016 HISTORY: SOB and chest pain. CT DLP: 604 mGycm Automated exposure control for dose reduction was used. CONTRAST: CTA scan of the thorax is performed with IV Contrast, patient injected with 80 mL of Omnipaque 350, p ulmonary embolism protocol. There are 3-D post processed images.. FINDINGS: The lungs are clear of infiltrate. There is no pleural effusion. Thoracic aorta appears normal. Heart appears enlarged. I see no filling defects in the pulmonary arteries. There are no hilar masses. There is no mediastina l adenopathy. The bony thorax is intact. . IMPRESSION: NEGATIVE CT ANGIOGRAM OF THE CHEST. NO EVIDENCE OF PULMONARY EMBOLISM. CARDIOMEGALY. NO CHANGE TC RED TO OLD EXAM.
[2017-05-13] MEDS ORDERED: ACETAMINOPHEN TAB 500 MG TAB PO STA (20:17)
[2017-05-13 20:45] VITALS: BP 98/57; PULSE 78; RESP 17; TEMP 98.2
== END 2017-05-13 21:05 | disposition home or self-care (01) ==
LOC: EC 16:51
DX: R07.81 Pleurodynia (principal); R06.00 Dyspnea, unspecified; J45.909 Unspecified asthma, uncomplicated; F17.200 Nicotine dependence, unspecified, uncomplicated; Z91.040 Latex allergy status
CPT/HCPCS: 99285; 36415; 93005; 85379; 80053; 82550; 82553; 84484; 85025; 85610; 85730; 81025; 71020; 71275; Q9967

== ENCOUNTER 2017-11-28 14:48 | Emergency (ER) | payer OTHER ==
[2017-11-28 15:38] LABS: Basophils % (A) 0 %; Eosinophils # (A) 0.1 k/uL (0-0.7); Eosinophils % (A) 1 %; HCT 38.1 % (34.0-46.0); HGB 11.8 gm/dL (11.4-16.0); Hypochromasia Moderate; Lymphocytes # (A) 2.2 k/uL (1.0-4.8); Lymphocytes % (A) 22 %; MCH 26.3 pg (25.0-35.0); Mean Platelet Volume 8.6; Monocytes # (A) 0.4 k/uL (0-1.0); Monocytes % (A) 4 %; Neutrophils # (A) 7.4 k/uL (1.3-7.7); Neutrophils % (A) 72 %; Platelet Count 304 k/uL (150-450); RBC 4.48 m/uL (3.80-5.40); RDW 15.6 % (11.5-15.5); WBC 10.4 k/uL (3.8-10.6)
[2017-11-28 15:47] LABS: D-Dimer 0.4 mg/L FEU (<0.60)
[2017-11-28 15:51] LABS: Partial Thromboplastin Time 23.6 sec (22.0-30.0); Prothrombin Time 9.6 sec (9.0-12.0)
[2017-11-28 15:53] LABS: ALT 20 U/L (9-52); AST 16 U/L (14-36); Alkaline Phosphatase 63 U/L (38-126); Anion Gap 7 mmol/L; Blood Urea Nitrogen 13 mg/dL (7-17); Calcium 9.6 mg/dL (8.4-10.2); Carbon Dioxide 27 mmol/L (22-30); Chloride 108 mmol/L (98-107); Glucose 90 mg/dL (74-99); Magnesium 1.9 mg/dL (1.6-2.3); Potassium 4.5 mmol/L (3.5-5.1); Sodium 142 mmol/L (137-145); Total Bilirubin <0.1 mg/dL (0.2-1.3); Total Protein 6.8 g/dL (6.3-8.2)
[2017-11-28 16:03] LABS: Creatine Kinase 56 U/L (30-135)
[2017-11-28] MEDS ORDERED: IBUPROFEN 600 MG TAB PO STA (16:10)
--- NOTE | 2017-11-28 16:15 | XR ---
EXAMINATION TYPE: XR chest 2V DATE OF EXAM: 11/28/2017 COMPARISON: Prior chest x-ray and chest CT 05/13/2017 HISTORY: Chest pain TECHNIQUE: Frontal and lateral views of the chest are obtained. FINDINGS: The patient is rotated. There is no focal air space opacity, pleural effusion, or pneumotho rax seen. The cardiac silhouette size is stable. There are overlying cardiac leads. The osseous str uctures are intact. IMPRESSION: No acute cardiopulmonary process.
[2017-11-28 16:17] LABS: Creatine Kinase MB 0.7 ng/mL (0.0-2.4); Troponin I <0.012 ng/mL (0.000-0.034)
--- NOTE | 2017-11-28 16:17 | ED ---
General Adult HPI - General Chief complaint: Chest Pain Stated complaint: chest pain Time Seen by Provider: 11/28/17 15:40 Source: patient, RN notes reviewed Mode of arrival: ambulatory Limitations: no limitations - History of Present Illness Initial comments: 27-year-old female presents to the emergency department with boyfriend for a chief complaint of chest pain. Patient states the pain has been going on for 3 days. She states the pain is constant and gets worse when she takes a deep breath and with exertion. Patient states she also has some shortness of breath with exertion. She describes the pain as a sharp pain in her sternum. Patient states she has had a cough, especially at night, for about a week now. Cough is nonproductive. states that 2 days ago she had a fever of 102.3, however there is currently no fever in the emergency department. Patient denies congestion but states she has a headache. Patient denies abdominal pain, nausea or vomiting. Patient states she has no cardiac history besides having to stay 3 days in the hospital after giving because of a high heart rate. No family history of cardiac problems. Patient has had a tubal ligation. - Related Data Home Medications Medication Instructions Recorded Confirmed Ibuprofen [Motrin Ib] 400 mg PO Q6H PRN 11/28/17 11/28/17 Previous Rx's Medication Instructions Recorded Ibuprofen 600 mg PO Q6H PRN #30 tablet 11/28/17 Allergies Allergy/AdvReac Type Severity Reaction Status Date / Time latex Allergy Rash/Hives Verified 11/28/17 15:58 Review of Systems ROS Statement: Those systems with pertinent positive or pertinent negative responses have been documented in the HPI. ROS Other: All systems not noted in ROS Statement are negative. Past Medical History Past Medical History: No Reported History History of Any Multi-Drug Resistant Organisms: None Reported Past Surgical History: Section, Cholecystectomy, Tubal Ligation Additional Past Surgical History / Comment(s): 2008 AND 2015 (c/s) and 2010 ( cholecyst) Past Anesthesia/Blood Transfusion Reactions: No Reported Reaction Past Psychological History: Anxiety, Bipolar, Depression Smoking Status: Current every day smoker Past Alcohol Use History: Rare Past Drug Use History: None Reported - Past Family History Mother Family Medical History: Asthma, COPD, Diabetes Mellitus, Hypertension Additional Family Medical History / Comment(s): depression, anxiety, sleep apnea , Father Family Medical History: Hypertension Additional Family Medical History / Comment(s): arthritis General Exam Limitations: no limitations ENT exam: Present: normal exam, mucous membranes moist, TM's normal bilaterally Neck exam: Present: normal inspection. Absent: tenderness, meningismus, lymphadenopathy Respiratory exam: Present: normal lung sounds bilaterally, other (Patient complains of pleuritic chest pain when asked to take deep breaths. Exam is limited due to this.). Absent: respiratory distress, wheezes, rales, rhonchi, stridor Cardiovascular Exam: Present: regular rate, normal rhythm, normal heart sounds. Absent: systolic murmur, diastolic murmur, rubs, gallop, clicks GI/Abdominal exam: Present: soft, normal bowel sounds. Absent: distended, tenderness, guarding, rebound, rigid Course Vital Signs 11/28/17 11/28/17 11/28/17 14:51 16:00 18:16 Temperature 97.6 F 98.7 F Pulse Rate 88 73 Pulse Rate [ 80 Bilateral Radial] Respiratory 17 16 Rate Blood Pressure 128/78 127/60 O2 Sat by Pulse 100 98 Oximetry EKG Findings - EKG Comments: EKG Findings:: Normal sinus rhythm, ventricular rate 76, VT interval 208, QRS duration 74 Medical Decision Making - Medical Decision Making 27-year-old female presents to the emergency department today for a chief complaint of chest pain. Patient states this pain has been for 3 days and hurts worse when she takes a deep breath or with exertion. Chest pain is found to be pleuritic and reproducible on exam. Patient has no cardiac history and states she has had a cough especially at night for the past week. Patient has no fever on presentation today but she did have a fever of 102.3 two days ago. Temp 97.6 Pulse 88 respirations 17 and blood pressure 128/78 pulse ox 100 on room air. Cardiac labs, EKG, and chest x-ray were ordered. CBC and CMP within normal limits. PTT/INR and d-dimer are all within normal limits as well. No lab abnormalities noted. Patient's temp is 97.6, pulse rate 88, respirations 17 and blood pressure 128/78 and 100% on room air. Patient's chest x-ray showed no acute abnormalities. CTA chest was ordered. No acute process noted on CTA. Mild cardiomegaly was demonstrated. Upon reevaluation patient is much more comfortable. We discussed the possibility of muscle strain from coughing. Patient will follow up with primary care provider in one to 2 days. She will return to the emergency Department if she notices worsening chest pain or shortness of breath. - Lab Data Result diagrams: 11/28/17 15:21 11/28/17 15:21 Lab Results 11/28/17 11/28/17 11/28/17 Range/Units 15:21 15:21 15:21 WBC 10.4 (3.8-10.6) k/uL RBC 4.48 (3.80-5.40) m/uL Hgb 11.8 (11.4-16.0) gm/dL Hct 38.1 (34.0-46.0) % MCV 85.0 (80.0-100.0) fL MCH 26.3 (25.0-35.0) pg MCHC 31.0 (31.0-37.0) g/dL RDW 15.6 H (11.5-15.5) % Plt Count 304 (150-450) k/uL Neutrophils % 72 % Lymphocytes % 22 % Monocytes % 4 % Eosinophils % 1 % Basophils % 0 % Neutrophils # 7.4 (1.3-7.7) k/uL Lymphocytes # 2.2 (1.0-4.8) k/uL Monocytes # 0.4 (0-1.0) k/uL Eosinophils # 0.1 (0-0.7) k/uL Basophils # 0.0 (0-0.2) k/uL Hypochromasia Moderate PT (9.0-12.0) sec INR (<1.2) APTT (22.0-30.0) sec D-Dimer (<0.60) mg/L FEU Sodium 142 (137-145) mmol/L Potassium 4.5 (3.5-5.1) mmol/L Chloride 108 H (98-107) mmol/L Carbon Dioxide 27 (22-30) mmol/L Anion Gap 7 mmol/L BUN 13 (7-17) mg/dL Creatinine 0.62 (0.52-1.04) mg/dL Est GFR (CKD-EPI)AfAm >90 (>60 ml/min/1.73 sqM) Est GFR (CKD-EPI)NonAf >90 (>60 ml/min/1.73 sqM) Glucose 90 (74-99) mg/dL Calcium 9.6 (8.4-10.2) mg/dL Magnesium 1.9 (1.6-2.3) mg/dL Total Bilirubin <0.1 L (0.2-1.3) mg/dL AST 16 (14-36) U/L ALT 20 (9-52) U/L Alkaline Phosphatase 63 (38-126) U/L Total Creatine Kinase 56 (30-135) U/L CK-MB (CK-2) 0.7 (0.0-2.4) ng/mL CK-MB (CK-2) Rel Index 1.3 Troponin I <0.012 (0.000-0.034) ng/mL Total Protein 6.8 (6.3-8.2) g/dL Albumin 4.0 (3.5-5.0) g/dL 11/28/17 Range/Units 15:21 WBC (3.8-10.6) k/uL RBC (3.80-5.40) m/uL Hgb (11.4-16.0) gm/dL Hct (34.0-46.0) % MCV (80.0-100.0) fL MCH (25.0-35.0) pg MCHC (31.0-37.0) g/dL RDW (11.5-15.5) % Plt Count (150-450) k/uL Neutrophils % % Lymphocytes % % Monocytes % % Eosinophils % % Basophils % % Neutrophils # (1.3-7.7) k/uL Lymphocytes # (1.0-4.8) k/uL Monocytes # (0-1.0) k/uL Eosinophils # (0-0.7) k/uL Basophils # (0-0.2) k/uL Hypochromasia PT 9.6 (9.0-12.0) sec INR 1.0 (<1.2) APTT 23.6 (22.0-30.0) sec D-Dimer 0.40 (<0.60) mg/L FEU Sodium (137-145) mmol/L Potassium (3.5-5.1) mmol/L Chloride (98-107) mmol/L Carbon Dioxide (22-30) mmol/L Anion Gap mmol/L BUN (7-17) mg/dL Creatinine (0.52-1.04) mg/dL Est GFR (CKD-EPI)AfAm (>60 ml/min/1.73 sqM) Est GFR (CKD-EPI)NonAf (>60 ml/min/1.73 sqM) Glucose (74-99) mg/dL Calcium (8.4-10.2) mg/dL Magnesium (1.6-2.3) mg/dL Total Bilirubin (0.2-1.3) mg/dL AST (14-36) U/L ALT (9-52) U/L Alkaline Phosphatase (38-126) U/L Total Creatine Kinase (30-135) U/L CK-MB (CK-2) (0.0-2.4) ng/mL CK-MB (CK-2) Rel Index Troponin I (0.000-0.034) ng/mL Total Protein (6.3-8.2) g/dL Albumin (3.5-5.0) g/dL Disposition Clinical Impression: Atypical chest pain Disposition: HOME SELF-CARE Condition: Good Instructions: Chest Pain (ED), Costochondritis (ED) Additional Instructions: Please return to the emergency department if you notice worsening symptoms. Please follow up with primary care provider in one to 2 days. These take ibuprofen for pain relief. Prescriptions: Ibuprofen 600 mg PO Q6H PRN #30 tablet PRN Reason: Pain Referrals: Panchito Celis MD [Primary Care Provider] - 1-2 days
[2017-11-28] MEDS ORDERED: RX INFO: IV CONTRAST WAS GIVEN 1 EACH MISC MISCELLANE PRN (16:31)
--- NOTE | 2017-11-28 17:42 | CT ---
EXAMINATION TYPE: CT angio chest with contrast and with 3-D reconstruction DATE OF EXAM: 11/28/2017 5:15 PM COMPARISON: 05/13/2017 HISTORY: Chest pain/SOB x3 days CT DLP: 462.8 mGycm Automated exposure control for dose reduction was used. CONTRAST: CTA scan of the thorax is performed with IV Contrast, patient injected with 76 mL of Omnipaque 350, p ulmonary embolism protocol. 3-D reconstructions. FINDINGS: LUNGS: The lungs are grossly clear, there is no concerning parenchymal mass or nodule identified. T here is no pleural effusion or pneumothorax seen. The tracheobronchial tree is patent. MEDIASTINUM: There is satisfactory enhancement of the pulmonary artery and its branches, there is no CT evidence for pulmonary embolism. There is fullness in the anterior mediastinum, prevascular space , extends prior study and likely represents residual thymus. No pericardial effusion is seen; mild ca rdiomegaly is demonstrated. OTHER: No additional significant abnormality is seen. IMPRESSION: 1. NO ACUTE PROCESS. 2. Mild Cardiomegaly And Prominent Thymus Redemonstrated.
[2017-11-28 18:18] VITALS: BP 127/60; PULSE 73; RESP 16; TEMP 98.7
== END 2017-11-28 18:18 | disposition home or self-care (01) ==
LOC: EC 14:48
DX: R07.81 Pleurodynia (principal); R05 Cough; R51 Headache; F17.200 Nicotine dependence, unspecified, uncomplicated; Z91.040 Latex allergy status
CPT/HCPCS: 36415; 93005; 85379; 80053; 82550; 82553; 83735; 84484; 85025; 85610; 85730; 71046; 71275; 99285; Q9967

== ENCOUNTER → 2018-02-21 | Outpatient (CLI) | payer OTHER | END | disposition home or self-care (01) | LOC: LABWHC1 16:29 | PROVIDERS: ATTEND Obstetrics & Gynecology | DX: N93.8 Other specified abnormal uterine and vaginal bleeding (principal) | CPT/HCPCS: 36415; 83001; 83002; 84146; 84443 ==

== ENCOUNTER → 2018-03-08 | Outpatient (CLI) | payer OTHER ==
--- NOTE | 2018-03-08 14:16 | US ---
EXAMINATION TYPE: US pelvis complete transvag DATE OF EXAM: 03/08/2018 COMPARISON: None CLINICAL HISTORY: N63.8 Dysfunctional uterine bleeding. TECHNIQUE: Transvaginal (TV) and Transabdominal (TA) . Transabdominal sonographic images of the pel vis were acquired. Transvaginal sonographic images were medically necessary to better assess the fol lowing anatomy: Date of LMP: 03/01/2018 EXAM MEASUREMENTS: Uterus: 8.2 x 4.9 x 4.0 cm Endometrial Stripe: 0.3 cm Right Ovary: 2.7 x 2.0 x 1.7 cm Left Ovary: 2.7 x 2.0 x 1.9 cm 1. Uterus: Retroverted wnl 2. Endometrium: wnl 3. Right Ovary: wnl 4. Left Ovary: wnl 5. Bilateral Adnexa: wnl 6. Posterior cul-de-sac: wnl Slightly retroverted uterus is seen. Endometrium is not suspiciously thickened for proliferative phas e of menstrual cycle as patient states last known menstrual period March 01. No free fluid is seen in pelvis on images saved. Both ovaries are seen with scattered peripheral follicles. No suspicious adnexal lesions are identifi ed on images saved. IMPRESSION: Unremarkable study
== END | disposition home or self-care (01) ==
LOC: RADUSWWP 13:32
PROVIDERS: ATTEND Obstetrics & Gynecology
DX: N93.8 Other specified abnormal uterine and vaginal bleeding (principal)
CPT/HCPCS: 76830; 76856

== ENCOUNTER → 2019-06-21 | Outpatient (CLI) | payer OTHER ==
[2019-06-21 11:03] VITALS: BP 139/80; PULSE 139; TEMP 99.1; BMI 42.1
--- NOTE | 2019-06-21 11:11 | P.HPBAR ---
Bariatric H&P - History & Physicial H&P Date: 06/21/19 History & Physicial: Visit/CC: Patient initial contact: Initial weight: Initial weight in pounds: Height: Initial BMI: Last weight: Current weight: Current weight in pounds: Current BMI: [place] body weight (based on NIH guidelines): Excess body weight loss: The patient is a 28 year-old F who presents for Bariatric Assessment. Patient presents for the first time looking to weight loss surgery. Her highest weight was 250 pounds. She started Adipex including going to 10 [place] projection. The stroke family history of morbid obesity including a mother who had an adjustable gastric band. Morbid obesity runs in the female side her [id number]. She does report reflux disease which takes medications on occasion. She has had to be evaluated for sleep apnea. She is looking between the sleeve gastrectomy gastric bypass. She does report family history of esophageal cancer or in her grandmother and her aunt. She is unaware of inflammatory bowel disease in her family. She has her gallbladder removed. She does report intermittent epigastric abdominal pain. She's not had recent upper endoscopy. She is currently undergoing medical records specialist was for first month including walking over 12,000 steps daily including keeping a food diary Journal. Plan Bariatric option sleeve and gastric bypass reviewed. Recommend upper endoscopy. Her insurance, she has 1 time option for bariatric surgery. [place] [facility] [place] Also recommend full bariatric labs Past Medical History Past Medical History: No Reported History History of Any Multi-Drug Resistant Organisms: None Reported Past Surgical History: Section, Cholecystectomy, Tubal Ligation Additional Past Surgical History / Comment(s): 2008 AND 2015 (c/s) and 2010 (cholecyst) Past Anesthesia/Blood Transfusion Reactions: No Reported Reaction Past Psychological History: Anxiety, Bipolar, Depression Smoking Status: Current every day smoker Past Alcohol Use History: Rare Past Drug Use History: None Reported - Past Family History Mother Family Medical History: Asthma, COPD, Diabetes Mellitus, Hypertension Additional Family Medical History / Comment(s): depression, anxiety, sleep apnea, Father Family Medical History: Hypertension Additional Family Medical History / Comment(s): arthritis Bariatric Checklist Checklist: Plan: Checklist: EGD: 1. Hiatal hernia: 2. H. Pylori: HgbA1c: Vitamin D: Smoking: Current every day smoker Primary care physician referral: Psychiatry clearance: Cardiology clearance: Sleep study: Diet journal: VTE risk score: VTE risk level: Rehab needs at discharge:
[2019-06-21 11:59] LABS: HCT 39.8 % (34.0-46.0); HGB 12.2 gm/dL (11.4-16.0); Hypochromasia Moderate; MCH 27.1 pg (25.0-35.0); MCHC 30.8 g/dL (31.0-37.0); MCV 87.9 fL (80.0-100.0); Mean Platelet Volume 6.8; Platelet Count 373 k/uL (150-450); RBC 4.52 m/uL (3.80-5.40); RDW 14.8 % (11.5-15.5); WBC 11.5 k/uL (3.8-10.6)
[2019-06-21 12:07] LABS: INR 0.9 (<1.2); Partial Thromboplastin Time 23.9 sec (22.0-30.0); Prothrombin Time 9.4 sec (9.0-12.0)
[2019-06-21 19:05] LABS: African American GFR (CKD) 115.5 (60.0-200.0); Albumin 4.4 g/dL (3.80-4.90); Albumin/Globulin Ratio 2.1 (1.60-3.17); Anion Gap 9.3 mmol/L (4.00-12.00); Calcium 9.8 mg/dL (8.7-10.3); Carbon Dioxide 24.7 mmol/L (21.6-31.8); Chol/HDL Ratio 3.44; Globulin 2.1 g/dL (1.6-3.3); LDL Cholesterol,Calculated 99.8 mg/dL (0.0-131.0); Magnesium 1.9 mg/dL (1.5-2.4); Non-African American GFR(CKD) 99.6 (60.0-200.0); Phosphorus 3.4 mg/dL (2.4-5.1); Potassium 4.6 mmol/L (3.5-5.5); Total Bilirubin 0.2 mg/dL (0.3-1.2); Total Protein 6.5 g/dL (6.2-8.2); VLDL Calculation 10.2 mg/dL (5.00-40.00)
[2019-06-21 19:16] LABS: Vitamin D 25 Hydroxy 16.3 ng/mL (30.0-100.0)
[2019-06-21 19:33] LABS: Ferritin 18.4 ng/mL (10.0-291.0); Folate, Serum 15.5 ng/mL; Iron Saturation 5.9 (12.00-45.00)
[2019-06-21 20:44] LABS: Hemoglobin A1C 5.2 % (4.0-6.0)
[2019-06-22 14:22] LABS: Zinc, Serum 45 ug/dL (60-130)
[2019-06-23 16:32] LABS: Vit B1(Thiamine) 66 ug/L (38-122)
[2019-06-25 06:48] LABS: Vitamin A 43 ug/dL (38-106)
[2019-06-28 17:51] LABS: Selenium 119 mcg/L (63-160)
== END | disposition home or self-care (01) ==
LOC: BARWHC3 10:11
PROVIDERS: ATTEND Surgery Plastic and Reconstructive Surgery
DX: K21.9 Gastro-esophageal reflux disease without esophagitis (principal); R10.13 Epigastric pain; F17.200 Nicotine dependence, unspecified, uncomplicated; Z90.49 Acquired absence of other specified parts of digestive tract; Z82.3 Family history of stroke; Z83.79 Family history of other diseases of the digestive system; Z80.0 Family history of malignant neoplasm of digestive organs; Z83.49 Family history of other endocrine, nutritional and metabolic diseases
CPT/HCPCS: 84255; 84134; 84425; 80061; 80053; 82607; 82728; 82525; 82746; 83540; 83550; 83735; 84100; 84443; 84590; 84630; 85027; 85610; 85730; 82306; 83970; 83036; G0463; 99211

== ENCOUNTER → 2019-06-21 | Outpatient (CLI) | payer OTHER | END | disposition home or self-care (01) | LOC: LABWHC1 11:09 | PROVIDERS: ATTEND Surgery Plastic and Reconstructive Surgery | DX: Z53.9 Procedure and treatment not carried out, unspecified reason (principal) ==

== ENCOUNTER → 2019-07-02 | Outpatient (CLI) | payer OTHER | END | disposition home or self-care (01) | LOC: LABPAT 13:39 | PROVIDERS: ATTEND Surgery Plastic and Reconstructive Surgery | DX: Z01.812 Encounter for preprocedural laboratory examination (principal) | CPT/HCPCS: 93005 ==

== ENCOUNTER → 2019-07-17 | Outpatient (CLI) | payer OTHER ==
--- NOTE | 2019-07-17 10:00 | US ---
EXAMINATION TYPE: US pelvis complete transvag DATE OF EXAM: 07/17/2019 COMPARISON: Prior ultrasound March 08, 2015 CLINICAL HISTORY: N93.8 DUB. Heavy bleeding during menses TECHNIQUE: Transvaginal (TV) and Transabdominal (TA) . Transabdominal sonographic images of the pel vis were acquired. Transvaginal sonographic images were medically necessary to better assess the fol lowing anatomy: Ovaries Date of LMP: 06/30/2019, EXAM MEASUREMENTS: Uterus: 8.1 x 5.2 x 4.0 cm Endometrial Stripe: 0.5 cm Right Ovary: 3.0 x 1.8 x 2.2 cm Left Ovary: 2.9 x 2.0 x 2.0 cm 1. Uterus: Retroverted wnl 2. Endometrium: wnl 3. Right Ovary: Follicles seen 4. Left Ovary: follicles seen 5. Bilateral Adnexa: Free fluid seen in left adnexa adjacent to LO 6. Posterior cul-de-sac: Free fluid Cervix- nabothian cysts Redemonstration of retroverted heterogeneous uterus. Endometrial stripe within normal limits. Small t o amount of free fluid in pelvic cul-de-sac seen best on transvaginal imaging. Both ovaries identifie d with scattered peripheral follicles. IMPRESSION: Small amount free fluid in pelvic cul-de-sac, nonspecific finding extends into left adnex a. Endometrium within normal limits. No definitive focal fibroid.
== END | disposition home or self-care (01) ==
LOC: RADUSWWP 08:47
PROVIDERS: ATTEND Obstetrics & Gynecology
DX: N93.8 Other specified abnormal uterine and vaginal bleeding (principal)
CPT/HCPCS: 76830; 76856

== ENCOUNTER 2019-08-06 08:10 | Day surgery (SDC) | payer OTHER ==
--- NOTE | 2019-08-06 07:24 | P.GSHP ---
History of Present Illness H&P Date: 08/06/19 CHIEF COMPLAINT: GERD HISTORY OF PRESENT ILLNESS: The patient is a 28-year-old female who presents reports gastroesophageal reflux disease. Upper endoscopy was offered for further evaluation and management. PAST MEDICAL HISTORY: Please see list. PAST SURGICAL HISTORY: Please see list. MEDICATIONS: Please see list. ALLERGIES: Please see list. SOCIAL HISTORY: No illicit drug use FAMILY HISTORY: No reports of Crohn disease or ulcerative colitis. REVIEW OF ORGAN SYSTEMS: CONSTITUTIONAL: No reports of fevers or chills. GI: Denies any blood in stools or constipation. PHYSICAL EXAM: VITAL SIGNS: Stable GENERAL: Well-developed and pleasant in no acute distress. HEENT: No scleral icterus. Extraocular movements grossly intact. Moist buccal mucosa. NECK: Supple without lymphadenopathy. CHEST: Unlabored respirations. Equal bilateral excursions. CARDIOVASCULAR: Regular rate and rhythm. Distal 2+ pulses. ABDOMEN: Soft, nondistended. MUSCULOSKELETAL: No clubbing, cyanosis, or edema. ASSESSMENT: 1. Gastroesophageal reflux disease PLAN: 1. Recommend proceeding with an upper endoscopy Past Medical History Past Medical History: No Reported History History of Any Multi-Drug Resistant Organisms: None Reported Past Surgical History: Section, Cholecystectomy, Tubal Ligation Additional Past Surgical History / Comment(s): 2008 AND 2015 (c/s) and 2010 (cholecyst) Past Anesthesia/Blood Transfusion Reactions: No Reported Reaction Past Psychological History: Anxiety, Bipolar, Depression Smoking Status: Current every day smoker Past Alcohol Use History: Rare Past Drug Use History: None Reported - Past Family History Mother Family Medical History: Asthma, COPD, Diabetes Mellitus, Hypertension Additional Family Medical History / Comment(s): depression, anxiety, sleep apnea, Father Family Medical History: Hypertension Additional Family Medical History / Comment(s): arthritis Medications and Allergies Home Medications Medication Instructions Recorded Confirmed Type Ibuprofen [Motrin Ib] 400 mg PO Q6H PRN 11/28/17 07/06/19 History Citalopram Hydrobromide [CeleXA] 5 mg PO DAILY 06/21/19 07/06/19 History busPIRone HCL 15 mg PO DAILY 06/21/19 07/06/19 History Ergocalciferol [Vitamin D2 50,000 unit PO WEEKLY 06/27/19 07/06/19 History (AYESHA)] Allergies Allergy/AdvReac Type Severity Reaction Status Date / Time latex Allergy Rash/Hives Verified 07/06/19 11:41
[~2019-08-06 08:10] MED LIST: LACTATED RINGERS 1,000 ML IV SCH
[2019-08-06 09:02] VITALS: TEMP 97.8
[2019-08-06] MEDS ORDERED: LIDOCAINE 1% 20 ML VIAL (10MG/ML) FOR IV START INTRADERMA ONE (09:02)
[2019-08-06] MEDS ORDERED: LACTATED RINGERS 1,000 ML IV ONE (09:02)
[2019-08-06] MEDS ORDERED: LIDOCAINE 1% INJ 10MG/ML (20 ML MDV) ONE (10:16)
[2019-08-06] MEDS ORDERED: PROPOFOL 10 MG/ML 20 ML VIAL IV ONE (10:16)
--- NOTE | 2019-08-06 10:27 | P.PCN ---
Date of Procedure: 08/06/19 Description of Procedure: PREOPERATIVE DIAGNOSIS: Gastroesophageal reflux disease. Morbid obesity. POSTOPERATIVE DIAGNOSIS: Morbid obesity. Gastritis. Gastroesophageal reflux disease. OPERATION: Esophagogastroduodenoscopy with biopsies along antrum. SURGEON: Cher Agosto MD ANESTHESIA: MAC. INDICATIONS: The patient is a 28-year-old female who presents with a history of reflux disease. Benefits and risks of the procedure were described. Informed consent was obtained. DESCRIPTION: The patient was brought into the endoscopy suite and laid in the left lateral decubitus position. An Olympus gastroscope was passed along the posterior oropharynx down to the distal esophagus where the squamocolumnar junction was encountered at 35 cm from the incisors. The stomach was entered and no bile reflux was found. Additional findings are listed below. Biopsies with cold forceps were obtained of the antrum. The first through third portion of the duodenum was examined and unremarkable. Retroflexion of the scope confirmed Hill grade 3 lower esophageal valve. The squamocolumnar junction demonstrated LA grade A erosive esophagitis. The stomach was desufflated. The patient tolerated the procedure well. FINDINGS: Squamocolumnar junction 35 cm from the incisors. Diaphragmatic hiatus at 35 cm. Hill grade 3 lower esophageal valve. LA grade A erosive esophagitis. No active duodenitis. Chronic gastritis RECOMMENDATIONS: Upper endoscopy as needed.
[2019-08-06 10:43] VITALS: RESP 16
[2019-08-06 10:44] VITALS: BP 113/65; PULSE 78
== END 2019-08-06 11:23 | disposition home or self-care (01) ==
LOC: ORWHC2ENDO 08:10
PROVIDERS: ATTEND Surgery Plastic and Reconstructive Surgery
DX: K29.50 Unspecified chronic gastritis without bleeding (principal); K21.0 Gastro-esophageal reflux disease with esophagitis; K22.10 Ulcer of esophagus without bleeding; K29.80 Duodenitis without bleeding; K31.9 Disease of stomach and duodenum, unspecified; D12.4 Benign neoplasm of descending colon; K52.9 Noninfective gastroenteritis and colitis, unspecified; E66.01 Morbid (severe) obesity due to excess calories; F41.9 Anxiety disorder, unspecified; F31.9 Bipolar disorder, unspecified; Z91.040 Latex allergy status; Z79.899 Other long term (current) drug therapy; Z98.51 Tubal ligation status; Z90.49 Acquired absence of other specified parts of digestive tract; Z83.3 Family history of diabetes mellitus; Z82.49 Family history of ischemic heart disease and other diseases of the circulatory system; Z82.5 Family history of asthma and other chronic lower respiratory diseases; Z81.8 Family history of other mental and behavioral disorders; Z82.61 Family history of arthritis; Z68.41 Body mass index [BMI] 40.0-44.9, adult
CPT/HCPCS: 81025; 88305; 43239; J2001; J2704

== ENCOUNTER → 2019-10-03 | Outpatient (CLI) | payer OTHER ==
[2019-10-03 13:23] VITALS: BP 114/77; PULSE 85; RESP 16; TEMP 98.2; BMI 42.8
--- NOTE | 2019-10-03 14:39 | P.PN ---
Subjective Progress Note Date: 10/03/19 She comes in for medical supervised weight loss. She missed August follow up with her PCP. She has gained weight. She has H. pylori gastritis. She has diffuse abdominal pain. Recommend [employer]. She is switching insurance. Told of possible 1 year requirement per current insurance. Prescriptions for H pylori written. Objective - Vital Signs Vital signs: Vital Signs Temp 98.2 F 10/03/19 13:20 Pulse 85 10/03/19 13:20 Resp 16 10/03/19 13:20 BP 114/77 10/03/19 13:20 Pulse Ox Intake & Output 10/02/19 10/03/19 10/03/19 18:59 06:59 18:59 Weight 109.769 kg
== END | disposition home or self-care (01) ==
LOC: BARWHC3 13:03
PROVIDERS: ATTEND Surgery Plastic and Reconstructive Surgery
DX: K29.70 Gastritis, unspecified, without bleeding (principal); R10.84 Generalized abdominal pain
CPT/HCPCS: 99211

== ENCOUNTER 2020-01-17 17:01 | Emergency (ER) | payer OTHER ==
[2020-01-17 17:15] VITALS: TEMP 98.2
[2020-01-17] MEDS ORDERED: KETOROLAC 30 MG/ML 1 ML VIAL IVP STA (17:27)
--- NOTE | 2020-01-17 17:30 | ED ---
Chest Pain HPI - General Chief Complaint: Chest Pain Stated Complaint: Chest Pain Time Seen by Provider: 01/17/20 17:17 Source: patient Mode of arrival: ambulatory Limitations: no limitations - History of Present Illness Initial Comments: Patient is a 29-year-old female presenting to the emergency Department with complaints of chest pain and shortness of breath that has been ongoing for 2 days. Patient states a few days ago she had a stomach bug consisting of vomiting and diarrhea that lasted 2-3 days. 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 Patient states she was tested for Covid at that time which is negative. Patient describes the chest pain as mostly in the center of her chest with a little bit in the left side, pressure feeling as well as shortness of breath when she lays flat. She denies history of blood clots, heart disease. She states she does smoke but has not in the last few days secondary to her illness. Patient did have a fever 3 days ago with her stomach bug but that has since gone. She denies cough, congestion, abdominal pain, nausea, vomiting, diarrhea at this time. She has no other complaints. Upon arrival to the ER, her vital signs are stable. - Related Data Home Medications Medication Instructions Recorded Confirmed Ibuprofen [Motrin Ib] 400 mg PO Q6H PRN 11/28/17 10/03/19 Citalopram Hydrobromide [CeleXA] 5 mg PO DAILY 06/21/19 10/03/19 busPIRone HCL 15 mg PO DAILY 06/21/19 10/03/19 Ergocalciferol [Vitamin D2 50,000 unit PO WEEKLY 06/27/19 10/03/19 (ISDDOMINIK)] ALPRAZolam [Xanax] 0.5 mg PO DAILY PRN 08/06/19 10/03/19 Previous Rx's Medication Instructions Recorded Amoxicillin 1,000 mg PO Q12HR #56 cap 10/02/19 Clarithromycin [Biaxin] 500 mg PO Q12HR #28 tablet 10/02/19 Omeprazole 40 mg PO DAILY #90 capsule. 10/02/19 Albuterol Inhaler [Ventolin Hfa 1 puff INHALATION RT-QID PRN #1 01/17/20 Inhaler] puff methylPREDNISolone [Medrol Dose 4 mg PO DIRECTED #1 pack 01/17/20 Pack] Allergies Allergy/AdvReac Type Severity Reaction Status Date / Time latex Allergy Rash/Hives Verified 01/17/20 17:15 Review of Systems ROS Statement: Those systems with pertinent positive or pertinent negative responses have been documented in the HPI. ROS Other: All systems not noted in ROS Statement are negative. EKG Findings - EKG Comments: EKG Findings:: Normal sinus rhythm, normal ECG, no signs of acute ischemia. Ventricular rate 85, IN interval 186, QTC 445. Past Medical History Past Medical History: No Reported History History of Any Multi-Drug Resistant Organisms: None Reported Past Surgical History: Section, Cholecystectomy, Tubal Ligation Additional Past Surgical History / Comment(s): 2008 AND 2015 (c/s) and 2010 (cholecyst) Past Anesthesia/Blood Transfusion Reactions: No Reported Reaction Past Psychological History: Anxiety, Bipolar, Depression Smoking Status: Current every day smoker Past Alcohol Use History: Rare Past Drug Use History: None Reported - Past Family History Mother Family Medical History: Asthma, COPD, Diabetes Mellitus, Hypertension Additional Family Medical History / Comment(s): depression, anxiety, sleep apnea, Father Family Medical History: Hypertension Additional Family Medical History / Comment(s): arthritis General Exam - General Exam Comments Initial Comments: GENERAL: Well-appearing, well-nourished and in no acute distress. HEAD: Atraumatic, normocephalic. EYES: Pupils equal round and reactive to light, extraocular movements intact, sclera anicteric, conjunctiva are normal. ENT: TMs normal, nares patent, oropharynx clear without exudates. Moist mucous membranes. NECK: Normal range of motion, supple without lymphadenopathy or JVD. LUNGS: Breath sounds clear to auscultation bilaterally and equal. No wheezes rales or rhonchi. Increased effort with deep breathing HEART: Regular rate and rhythm without murmurs, rubs or gallops. ABDOMEN: Soft, nontender, normoactive bowel sounds. No guarding, no rebound. No masses appreciated. : Deferred EXTREMITIES: Normal range of motion, no pitting or edema. No clubbing or cyanosis. NEUROLOGICAL: Cranial nerves II through XII grossly intact. Normal speech, normal gait. PSYCH: Normal mood, normal affect. SKIN: Warm, Dry, normal turgor, no rashes or lesions noted. 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 Vitals are stable here. EKG shows no signs of ischemia, lab work is unremarkable, troponin is negative. Chest x-ray shows no acute findings, d-dimer was mildly elevated, CTA was performed and shows no acute findings. COVID negative. Patient was given Toradol, albuterol inhaler, steroids. She does report mild improvement in her symptoms. I discussed with patient that her discomfort is most likely related to a viral upper respiratory illness or bronchitis. Patient is stable for discharge. She'll be sent home with albuterol inhaler as well as steroids. Patient is agreement this plan of care. Work note was given. She will follow up with her PCP. Case discussed with Dr. Chavez. Disposition Clinical Impression: Bronchitis, Atypical chest pain Disposition: HOME SELF-CARE Condition: Stable Instructions (If sedation given, give patient instructions): Upper Respiratory Infection (ED) Additional Instructions: Please return to the Emergency Department if symptoms worsen or any other concerns. Take steroids as prescribed, use inhaler as needed for shortness of breath. Follow-up with PCP. Prescriptions: methylPREDNISolone [Medrol Dose Pack] 4 mg PO DIRECTED #1 pack Albuterol Inhaler [Ventolin Hfa Inhaler] 1 puff INHALATION RT-QID PRN #1 puff PRN Reason: Shortness Of Breath Is patient prescribed a controlled substance at d/c from ED?: No Referrals: Justin Molina MD [Primary Care Provider] - 1-2 days
[2020-01-17] MEDS ORDERED: ALBUTEROL NEBULIZED 2.5 MG/3 ML INHALATION STA ×2 (17:31→17:32)
[2020-01-17 17:37] LABS: Basophils % (A) 0 %; Eosinophils # (A) 0.2 k/uL (0-0.7); Eosinophils % (A) 1 %; HCT 38.8 % (34.0-46.0); HGB 12.5 gm/dL (11.4-16.0); Hypochromasia Slight; Lymphocytes # (A) 2.3 k/uL (1.0-4.8); Lymphocytes % (A) 21 %; MCH 28.3 pg (25.0-35.0); MCHC 32.1 g/dL (31.0-37.0); Mean Platelet Volume 7.8; Monocytes # (A) 0.4 k/uL (0-1.0); Monocytes % (A) 3 %; Neutrophils # (A) 8.2 k/uL (1.3-7.7); Neutrophils % (A) 73 %; Platelet Count 321 k/uL (150-450); RBC 4.41 m/uL (3.80-5.40); RDW 14.7 % (11.5-15.5); WBC 11.2 k/uL (3.8-10.6)
[2020-01-17 17:50] VITALS: RESP 18
[2020-01-17 17:52] LABS: INR 0.9 (<1.2); Partial Thromboplastin Time 24.1 sec (22.0-30.0); Prothrombin Time 9.7 sec (9.0-12.0)
[2020-01-17 17:53] LABS: ALT 14 U/L (4-34); AST 23 U/L (14-36); African American GFR (CKD) >90 (>60 ml/min/1.73 sqM); Albumin 4.1 g/dL (3.5-5.0); Alkaline Phosphatase 71 U/L (38-126); Anion Gap 7 mmol/L; Blood Urea Nitrogen 12 mg/dL (7-17); Calcium 9.1 mg/dL (8.4-10.2); Carbon Dioxide 22 mmol/L (22-30); Chloride 109 mmol/L (98-107); Glucose 86 mg/dL (74-99); Non-African American GFR(CKD) >90 (>60 ml/min/1.73 sqM); Potassium 4.4 mmol/L (3.5-5.1); Sodium 138 mmol/L (137-145); Total Bilirubin 0.3 mg/dL (0.2-1.3); Total Protein 7.3 g/dL (6.3-8.2)
--- NOTE | 2020-01-17 17:57 | XR ---
EXAMINATION TYPE: XR chest 1V portable DATE OF EXAM: 01/17/2020 COMPARISON: 11/28/2017 HISTORY: Chest pain and shortness of breath TECHNIQUE: Single frontal view of the chest is obtained. FINDINGS: Copious soft tissues partially obscure the lower lungs. There is no focal air space opacit y, pleural effusion, or pneumothorax seen. The cardiac silhouette size is upper limits of normal. The osseous structures are intact. IMPRESSION: No acute process.
[2020-01-17] MEDS ORDERED: methylPREDNISolone SOD SUCCI 125 MG/2 ML VIAL IV STA (18:05)
--- NOTE | 2020-01-17 18:47 | CT ---
EXAMINATION TYPE: CT chest angio for PE DATE OF EXAM: 01/17/2020 COMPARISON: 05/13/2017 HISTORY: Chest pain, dyspnea. CT DLP: 432.4 mGycm. Automated Exposure Control for Dose Reduction was Utilized. CONTRAST: CTA scan of the thorax is performed with IV Contrast, patient injected with 100 mL of Isovue 370, pul monary embolism protocol. MIP Images are created on CT scanner and reviewed. FINDINGS: LUNGS: The lungs are grossly clear, there is no concerning parenchymal mass or nodule identified. St able minimal pleural parenchymal thickening of the posterior right lung apex on image 19 measuring 2- 3 mm in comparison to thousand 17. Given stability this is a benign finding. There is no pleural effu harjit or pneumothorax seen. The tracheobronchial tree is patent. MEDIASTINUM: There is satisfactory enhancement of the pulmonary artery and its branches, there is no CT evidence for pulmonary embolism. There are no greater than 1 cm hilar or mediastinal lymph nodes. No cardiomegaly or pericardial effusion is seen. Triangular-shaped density in the anterior superio r mediastinum most commonly relates to residual thymic tissue and was present on the prior 2017. Phas e of contrast limits evaluation for coronary artery calcifications as does cardiac motion. No thoraci c aortic aneurysm in the visualized portions of the thoracic aorta although motion artifact limits ev aluation of the aortic root. OTHER: Prominent right axillary lymph node measures 9 mm in short axis and prominent left axillary ly mph node measures 1.0 cm in short axis. These appear similar however in comparison to the exam of 201 7. IMPRESSION: No CT evidence of pulmonary embolism. No acute pulmonary process seen.
[2020-01-17 19:14] VITALS: BP 119/65; PULSE 81
== END 2020-01-17 19:34 | disposition home or self-care (01) ==
LOC: EC 17:01
DX: J40 Bronchitis, not specified as acute or chronic (principal); Z20.828 Contact with and (suspected) exposure to other viral communicable diseases; F41.9 Anxiety disorder, unspecified; F31.9 Bipolar disorder, unspecified; F17.200 Nicotine dependence, unspecified, uncomplicated; Z79.899 Other long term (current) drug therapy; Z91.040 Latex allergy status
CPT/HCPCS: 36415; 94640; 93005; 85379; 80053; 83735; 84484; 85025; 85610; 85730; 87635; 71045; 71275; 99285; 96374; 96375; J2930; J1885; Q9967

== ENCOUNTER → 2020-07-30 | Outpatient (CLI) | payer OTHER ==
[2020-07-30 14:54] VITALS: BP 110/64; PULSE 97; RESP 16; TEMP 98.7; BMI 45.8
--- NOTE | 2020-07-30 15:26 | P.PN ---
Subjective Progress Note Date: 07/30/20 DATE OF SERVICE: 07/30/2020 CHIEF COMPLAINT: Morbid obesity HISTORY OF PRESENT ILLNESS: Geneva Chavez is a 29-year-old female who comes in with lifelong morbid obesity. She reports troubles with weight loss compliance. She has no further burning of the abdomen. No nausea or vomiting. At height of 5 feet 3.75 inches, her ideal body weight is 140 pounds. Her weight is 254 pounds. Her BMI was 45.2. She comes in 258 pounds from 254 pounds, 2 months ago. She gained 4 pounds in 2 months. Her body mass index is 45.9. She is 118 pounds overweight. PHYSICAL EXAM: VITAL SIGNS: Height 5 foot 3 inches, weight 258 pounds. BMI 45.9 Vital Signs Temp 98.7 F 07/30/20 14:50 Pulse 97 07/30/20 14:50 Resp 16 07/30/20 14:50 BP 110/64 07/30/20 14:50 Pulse Ox GENERAL: Well-developed in no acute distress. HEENT: No scleral icterus. Extraocular movements grossly intact. Hears conversational speech. No nasal drainage. NECK: Supple without lymphadenopathy. CHEST: Nonlabored respirations with equal bilateral excursions. CARDIOVASCULAR: Regular rate and rhythm. Distal 2+ pulses. ABDOMEN: Obese, soft, nontender, nondistended. MUSCULOSKELETAL: No clubbing, cyanosis. NEURO: No focal or lateralizing signs. Cranial nerves 2 through 12 grossly within normal limits. PSYCH: Appropriate affect. Alert and oriented to person, place and time. SKIN: Good skin turgor. Well perfused. ASSESSMENT: 1. Morbid obesity due to excess calories 2. Body mass index of 44.4, initial 3. Osteoarthritis of the knees. 4. Gastroesophageal reflux disease 5. Obstructive sleep apnea 6. Depressive disorder. 7. Anxiety disorder. 8. Supraventricular tachycardia 9. Vitamin D deficiency 10. Zinc deficiency 11. Leukocytosis 12. H. pylori gastritis 13. Iron deficiency PLAN: 1. Recommend re-check labs. 2. Recommend dietary surveillance and counseling. Objective - Vital Signs Vital signs: Vital Signs Temp 98.7 F 07/30/20 14:50 Pulse 97 07/30/20 14:50 Resp 16 07/30/20 14:50 BP 110/64 07/30/20 14:50 Pulse Ox Intake & Output 07/29/20 07/30/20 07/30/20 18:59 06:59 18:59 Weight 117.48 kg - Labs CBC & Chem 7: 07/30/20 15:57 07/30/20 15:57
[2020-07-30 16:19] LABS: HCT 42.1 % (34.0-46.0); HGB 13.5 gm/dL (11.4-16.0); Hypochromasia Slight; MCH 28.9 pg (25.0-35.0); MCV 90.4 fL (80.0-100.0); Mean Platelet Volume 7.5; Platelet Count 327 k/uL (150-450); RBC 4.65 m/uL (3.80-5.40); RDW 14.4 % (11.5-15.5)
[2020-07-30 23:41] LABS: % Iron Saturation 16.44 (12.00-45.00); African American GFR (CKD) 114.7 (60.0-200.0); Albumin 4.5 g/dL (3.80-4.90); Albumin/Globulin Ratio 1.88 (1.60-3.17); Anion Gap 5.1 mmol/L (4.00-12.00); Calcium 9.2 mg/dL (8.7-10.3); Carbon Dioxide 26.9 mmol/L (21.6-31.8); Chol/HDL Ratio 4.85; Globulin 2.4 g/dL (1.6-3.3); Non-African American GFR(CKD) 98.9 (60.0-200.0); Phosphorus 3.8 mg/dL (2.4-5.1); Potassium 4.5 mmol/L (3.5-5.5); Total Bilirubin 0.2 mg/dL (0.3-1.2); Total Protein 6.9 g/dL (6.2-8.2)
[2020-07-30 23:50] LABS: Ferritin 104.2 ng/mL (10.0-291.0)
[2020-07-31 00:20] LABS: Folate, Serum 10.2 ng/mL
[2020-07-31 00:58] LABS: Hemoglobin A1C 5.5 % (4.0-6.0)
[2020-07-31 03:13] LABS: INR 0.95 (0.90-1.11); Partial Thromboplastin Time 27.6 sec (23.5-31.0); Prothrombin Time 10.3 sec (9.9-11.9)
[2020-07-31 14:09] LABS: Zinc, Serum 48 ug/dL (60-130)
[2020-08-01 06:15] LABS: Vit B1(Thiamine) 69 ug/L (38-122)
[2020-08-01 06:19] LABS: Vitamin A 41 ug/dL (38-106)
[2020-08-02 00:56] LABS: Selenium 131 mcg/L (63-160)
== END | disposition home or self-care (01) ==
LOC: BARWHC3 14:32
PROVIDERS: ATTEND Surgery Plastic and Reconstructive Surgery
DX: E66.01 Morbid (severe) obesity due to excess calories (principal); M17.0 Bilateral primary osteoarthritis of knee; K21.9 Gastro-esophageal reflux disease without esophagitis; G47.33 Obstructive sleep apnea (adult) (pediatric); F32.9 Major depressive disorder, single episode, unspecified; F41.9 Anxiety disorder, unspecified; I47.1 Supraventricular tachycardia; E55.9 Vitamin D deficiency, unspecified; E60 Dietary zinc deficiency; E61.1 Iron deficiency; D72.829 Elevated white blood cell count, unspecified; K29.70 Gastritis, unspecified, without bleeding; B96.81 Helicobacter pylori [H. pylori] as the cause of diseases classified elsewhere; Z68.41 Body mass index [BMI] 40.0-44.9, adult
CPT/HCPCS: 84255; 84134; 84425; 80061; 80053; 83013; 82607; 82728; 82525; 82746; 83540; 83550; 83735; 84100; 84443; 84590; 84630; 85027; 85610; 85730; 82306; 83970; 83036; G0463; 99211

== ENCOUNTER → 2020-12-24 | Outpatient (CLI) | payer OTHER ==
[2020-12-24 16:16] VITALS: BP 127/84; PULSE 102; RESP 18; TEMP 100.3; BMI 48.5
--- NOTE | 2020-12-24 16:58 | P.PN ---
Subjective Progress Note Date: 12/24/20 DATE OF SERVICE: 12/24/2020 CHIEF COMPLAINT: Morbid obesity HISTORY OF PRESENT ILLNESS: Geneva Chavez is a 30-year-old female who comes in with lifelong morbid obesity. She comes in with troubles with weight loss. She continues to gain weight despite medical supervised weight loss for the past 6 months. She also comes in with a new fever. She comes in with worsening symptoms. She presents in consultation for medical supervised weight loss and bariatric options. At height of 5 feet 3.75 inches, her ideal body weight is 140 pounds. Her weight is up from 254 to 273 pounds. Her BMI was 45.2 i sup to 48.5. She comes in 273 pounds from 258 pounds, 6 months ago. She gained 15 pounds in 6 months. Her body mass index is 48.5. She is 133 pounds overweight. PAST MEDICAL HISTORY: 1. Morbid obesity due to excess calories 2. Body mass index of 44.4, initial 3. Osteoarthritis of the knees. 4. Gastroesophageal reflux disease 5. Obstructive sleep apnea 6. Depressive disorder. 7. Anxiety disorder. PAST SURGICAL HISTORY: 1. Cholecystectomy 2. Tubal ligation 3. section HOME MEDICATIONS: Home Medications Medication Instructions Recorded Confirmed Citalopram Hydrobromide [CeleXA] 20 mg PO DAILY 06/21/19 01/28/21 QUEtiapine [SEROquel] 25 mg PO HS 07/31/20 01/28/21 Omeprazole [PriLOSEC] 20 mg PO DIRECTED PRN 12/24/20 01/28/21 traZODone HCL 50 mg PO HS 12/24/20 01/28/21 Previous Rx's Medication Instructions Recorded Albuterol Inhaler [Ventolin Hfa 1 puff INHALATION RT-QID PRN #1 01/17/20 Inhaler] puff Omeprazole [PriLOSEC] 40 mg PO DAILY #90 cap 12/24/20 ALLERGIES: Allergies Allergy/AdvReac Type Severity Reaction Status Date / Time latex Allergy Rash/Hives Verified 01/28/21 16:55 SOCIAL HISTORY: Past tobacco use. FAMILY HISTORY: No family history of ulcerative colitis disease or Crohn's disease. Family history of morbid obesity. No lupus in the family. She does report family history of esophageal cancer in her grandmother and her aunt. She has family history of morbid obesity including a mother who had an adjustable gastric band. Morbid obesity runs in the female side her family. REVIEW OF ORGAN SYSTEMS: CONSTITUTIONAL: At height of 5 feet 3.75 inches, her ideal body weight is 140 pounds. Her highest weight was 250 pounds. Her BMI was 44.4. HEENT: Denies any active troubles with vision or hearing. No troubles with swallowing. ENDOCRINE: No diabetes. No hypothyroidism. CARDIOVASCULAR: No past reports of palpitations or heart attacks or chest pain. RESPIRATORY: Has daytime somnolence. No asthma. GASTROINTESTINAL: Denies any bright red blood per rectum. No diarrhea. No constipation. Past H. pylori gastritis. MUSCULOSKELETAL: Has lower back pain and joint pain. Has osteoarthritis of the knees. NEURO: No headaches. No seizure disorders. PSYCH: Has depression. No suicidal ideation. Has anxiety. RHEUMATOLOGIC: No lupus. No rheumatoid arthritis. HEMATOLOGIC: Denies any abnormal bleeding or bruising. No personal history of DVTs. SKIN: No rash. No skin cancer. PHYSICAL EXAM: VITAL SIGNS: Height 5 foot 3 inches, weight 273 pounds. BMI 48.5 Vital Signs Temp 100.3 F H 12/24/20 16:06 Pulse 102 H 12/24/20 16:06 Resp 18 12/24/20 16:06 BP 127/84 12/24/20 16:06 Pulse Ox GENERAL: Well-developed in no acute distress. HEENT: No scleral icterus. Extraocular movements grossly intact. Hears conversational speech. No nasal drainage. NECK: Supple without lymphadenopathy. CHEST: Nonlabored respirations with equal bilateral excursions. CARDIOVASCULAR: Tachycardic. ABDOMEN: Obese, soft, nontender, nondistended. MUSCULOSKELETAL: No clubbing, cyanosis. NEURO: No focal or lateralizing signs. Cranial nerves 2 through 12 grossly within normal limits. PSYCH: Appropriate affect. Alert and oriented to person, place and time. SKIN: Good skin turgor. Well perfused. ASSESSMENT: 1. Morbid obesity due to excess calories 2. Body mass index of 48.5 3. Osteoarthritis of the knees. 4. Gastroesophageal reflux disease 5. Obstructive sleep apnea 6. Depressive disorder. 7. Anxiety disorder. 8. Supraventricular tachycardia 9. Vitamin D deficiency 10. Zinc deficiency 11. Leukocytosis 12. H. pylori gastritis 13. Iron deficiency PLAN: 1. She has fevers in the midst of a pandemic. Recommend COVID testing. 2. Recommend quarantine. 3. Recommend notify her PCP for testing. 4. Recommend food diary journal. 5. Follow up 1 month. Objective - Vital Signs Vital signs: Vital Signs Temp 100.3 F H 12/24/20 16:06 Pulse 102 H 12/24/20 16:06 Resp 18 12/24/20 16:06 BP 127/84 12/24/20 16:06 Pulse Ox Intake & Output 12/23/20 12/24/20 12/24/20 18:59 06:59 18:59 Weight 124.284 kg
--- NOTE | 2020-12-24 17:00 | P.PN ---
Progress Note - Text Progress Note Date: 12/24/20 To whom it may concern: Geneva Chavez is under my surgical care. She is advised to undergo quarantine until completion of negative COVID testing due to active COVID symptoms and possible exposure. Regards, Cher Agosto MD
== END | disposition home or self-care (01) ==
LOC: BARWHC3 15:39
PROVIDERS: ATTEND Surgery Plastic and Reconstructive Surgery
DX: E66.01 Morbid (severe) obesity due to excess calories (principal); M17.0 Bilateral primary osteoarthritis of knee; K21.9 Gastro-esophageal reflux disease without esophagitis; G47.33 Obstructive sleep apnea (adult) (pediatric); F32.9 Major depressive disorder, single episode, unspecified; F41.9 Anxiety disorder, unspecified; I47.1 Supraventricular tachycardia; E60 Dietary zinc deficiency; E61.1 Iron deficiency; E55.9 Vitamin D deficiency, unspecified; D72.829 Elevated white blood cell count, unspecified; K29.70 Gastritis, unspecified, without bleeding; B96.81 Helicobacter pylori [H. pylori] as the cause of diseases classified elsewhere; Z87.891 Personal history of nicotine dependence; Z68.42 Body mass index [BMI] 45.0-49.9, adult; Z91.040 Latex allergy status
CPT/HCPCS: 99211

== ENCOUNTER → 2021-01-21 | Outpatient (CLI) | payer OTHER ==
--- NOTE | 2021-01-21 16:09 | P.PN ---
Subjective Progress Note Date: 01/21/21 She left without being seen.
== END ==
LOC: BARWHC3 13:18
PROVIDERS: ATTEND Surgery Plastic and Reconstructive Surgery
DX: Z53.21 Procedure and treatment not carried out due to patient leaving prior to being seen by health care provider (principal)

== ENCOUNTER → 2021-01-28 | Outpatient (CLI) | payer OTHER ==
--- NOTE | 2021-01-28 15:08 | P.PN ---
Subjective Progress Note Date: 01/28/21 DATE OF SERVICE: 01/28/2021 CHIEF COMPLAINT: Morbid obesity HISTORY OF PRESENT ILLNESS: Geneva Chavez is a 30-year-old female who comes in with troubles with weight loss. She is undergoing medical supervised weight loss. She is walking up the stairs and playing with her children for increased activity. She has cut out juices, candies and junk food and has lost 8 pounds in 1 month. She reports new cramps in her left calf. She comes in with new medical problem. At height of 5 feet 3.75 inches, her ideal body weight is 140 pounds. Her highest weight is 273 pounds, BMI 48.5. She comes in 267 pounds from 273 pounds, 1 month ago. She has lost 6 pounds in 1 month. Her body mass index is 47.5. She is 127 pounds overweight. PAST MEDICAL HISTORY: 1. Morbid obesity due to excess calories 2. Body mass index of 44.4, initial 3. Osteoarthritis of the knees. 4. Gastroesophageal reflux disease 5. Obstructive sleep apnea 6. Depressive disorder. 7. Anxiety disorder. PAST SURGICAL HISTORY: 1. Cholecystectomy 2. Tubal ligation 3. section HOME MEDICATIONS: Home Medications Medication Instructions Recorded Confirmed Citalopram Hydrobromide [CeleXA] 20 mg PO DAILY 06/21/19 03/25/21 QUEtiapine [SEROquel] 25 mg PO HS 07/31/20 03/25/21 Omeprazole [PriLOSEC] 20 mg PO DIRECTED PRN 12/24/20 03/25/21 traZODone HCL 50 mg PO HS 12/24/20 03/25/21 Previous Rx's Medication Instructions Recorded Albuterol Inhaler [Ventolin Hfa 1 puff INHALATION RT-QID PRN #1 01/17/20 Inhaler] puff Omeprazole [PriLOSEC] 40 mg PO DAILY #90 cap 12/24/20 ALLERGIES: Allergies Allergy/AdvReac Type Severity Reaction Status Date / Time latex Allergy Rash/Hives Verified 03/25/21 16:02 SOCIAL HISTORY: Past tobacco use. FAMILY HISTORY: No family history of ulcerative colitis disease or Crohn's dise ase. Family history of morbid obesity. No lupus in the family. She does report family history of esophageal cancer in her grandmother and her aunt. She has family history of morbid obesity including a mother who had an adjustable gastric band. Morbid obesity runs in the female side her family. REVIEW OF ORGAN SYSTEMS: CONSTITUTIONAL: At height of 5 feet 3.75 inches, her ideal body weight is 140 pounds. Her highest weight was 250 pounds. Her BMI was 44.4. HEENT: Denies any active troubles with vision or hearing. No troubles with swallowing. ENDOCRINE: No diabetes. No hypothyroidism. CARDIOVASCULAR: No past reports of palpitations or heart attacks or chest pain. RESPIRATORY: Has daytime somnolence. No asthma. GASTROINTESTINAL: Denies any bright red blood per rectum. No diarrhea. No constipation. Past H. pylori gastritis. MUSCULOSKELETAL: Has lower back pain and joint pain. Has osteoarthritis of the knees. NEURO: No headaches. No seizure disorders. PSYCH: Has depression. No suicidal ideation. Has anxiety. RHEUMATOLOGIC: No lupus. No rheumatoid arthritis. HEMATOLOGIC: Denies any abnormal bleeding or bruising. No personal history of DVTs. SKIN: No rash. No skin cancer. PHYSICAL EXAM: VITAL SIGNS: Height 5 foot 3 inches, weight 267 pounds. BMI 47.5 Vital Signs Temp 98.1 F 01/28/21 13:30 Pulse 82 01/28/21 13:30 Resp BP 123/82 01/28/21 13:30 Pulse Ox GENERAL: Well-developed in no acute distress. HEENT: No scleral icterus. Extraocular movements grossly intact. Hears conversational speech. No nasal drainage. NECK: Supple without lymphadenopathy. CHEST: Nonlabored respirations with equal bilateral excursions. CARDIOVASCULAR: Regular rate and rhythm ABDOMEN: Obese, soft, nontender, nondistended. MUSCULOSKELETAL: No clubbing, cyanosis. NEURO: No focal or lateralizing signs. Cranial nerves 2 through 12 grossly within normal limits. PSYCH: Appropriate affect. Alert and oriented to person, place and time. SKIN: Good skin turgor. Well perfused. ASSESSMENT: 1. Morbid obesity due to excess calories 2. Body mass index of 48.5 to 47.5 3. Osteoarthritis of the knees. 4. Gastroesophageal reflux disease 5. Obstructive sleep apnea 6. Depressive disorder. 7. Anxiety disorder. 8. Supraventricular tachycardia 9. Vitamin D deficiency 10. Zinc deficiency 11. Leukocytosis 12. H. pylori gastritis 13. Iron deficiency 14. Dietary surveillance and counseling 15. Left lower leg pain PLAN: 1. She is more active and recommend continued calorie restriction. 2. Recommend check ultrasound of the left lower extremity. 3. Follow up in 1 week.
[2021-01-29 09:26] VITALS: BP 123/82; PULSE 82; TEMP 98.1; BMI 47.5
== END ==
LOC: BARWHC3 13:30
PROVIDERS: ATTEND Surgery Plastic and Reconstructive Surgery
DX: E66.01 Morbid (severe) obesity due to excess calories (principal); M17.0 Bilateral primary osteoarthritis of knee; K21.9 Gastro-esophageal reflux disease without esophagitis; G47.33 Obstructive sleep apnea (adult) (pediatric); F32.9 Major depressive disorder, single episode, unspecified; F41.9 Anxiety disorder, unspecified; I47.1 Supraventricular tachycardia; E55.9 Vitamin D deficiency, unspecified; E61.1 Iron deficiency; E60 Dietary zinc deficiency; M79.662 Pain in left lower leg; D72.829 Elevated white blood cell count, unspecified; B96.81 Helicobacter pylori [H. pylori] as the cause of diseases classified elsewhere; K29.70 Gastritis, unspecified, without bleeding; Z71.3 Dietary counseling and surveillance; Z68.42 Body mass index [BMI] 45.0-49.9, adult; Z87.891 Personal history of nicotine dependence; Z91.040 Latex allergy status
CPT/HCPCS: 99211

== ENCOUNTER → 2021-02-18 | Outpatient (CLI) | payer OTHER ==
[2021-02-18 14:27] VITALS: BP 131/85; PULSE 87; RESP 16; TEMP 98.6; BMI 47.5
--- NOTE | 2021-02-18 14:46 | P.PN ---
Subjective Progress Note Date: 02/18/21 DATE OF SERVICE: 02/18/2021 CHIEF COMPLAINT: Morbid obesity HISTORY OF PRESENT ILLNESS: Geneva Chavez is a 30-year-old female who comes in with lifelong morbid obesity. She is adjusting her diet. Her weight is stable. She denies abdominal pain. She had cramps in the legs that is better. She eats chicken, tuna, and fish. At height of 5 feet 3 inches, her ideal body weight is 140 pounds. Her weight is 267 pounds from 273 pounds. Her BMI was 48.5. She lost 6 pounds in 2 months. Her BMI is 47.4. She is 127 pounds overweight. PHYSICAL EXAM: VITAL SIGNS: Height 5 foot 3 inches, weight 267 pounds. BMI 47.5 Vital Signs Temp 98.6 F 02/18/21 14:24 Pulse 87 02/18/21 14:24 Resp 16 02/18/21 14:24 BP 131/85 02/18/21 14:24 Pulse Ox GENERAL: Well-developed in no acute distress. HEENT: No scleral icterus. Extraocular movements grossly intact. Hears conversational speech. No nasal drainage. NECK: Supple without lymphadenopathy. CHEST: Nonlabored respirations with equal bilateral excursions. CARDIOVASCULAR: Regular rate and rhythm. ABDOMEN: Obese, soft, nontender, nondistended. MUSCULOSKELETAL: No clubbing, cyanosis. NEURO: No focal or lateralizing signs. Cranial nerves 2 through 12 grossly within normal limits. PSYCH: Appropriate affect. Alert and oriented to person, place and time. SKIN: Good skin turgor. Well perfused. ASSESSMENT: 1. Morbid obesity due to excess calories 2. Body mass index of 48.5 now 47.5 3. Osteoarthritis of the knees. 4. Gastroesophageal reflux disease 5. Obstructive sleep apnea 6. Depressive disorder. 7. Anxiety disorder. 8. Supraventricular tachycardia 9. Vitamin D deficiency 10. Zinc deficiency 11. Leukocytosis 12. H. pylori gastritis 13. Iron deficiency 14. Dietary surveillance and counseling PLAN: 1. Her weight is stable. Recommend bring in food diary journal for review. [employer]itness [employer] advised. 2. Follow up in 1 month. Objective - Vital Signs Vital signs: Vital Signs Temp 98.6 F 02/18/21 14:24 Pulse 87 02/18/21 14:24 Resp 16 02/18/21 14:24 BP 131/85 02/18/21 14:24 Pulse Ox Intake & Output 02/17/21 02/18/21 02/18/21 18:59 06:59 18:59 Weight 121.563 kg
== END ==
LOC: BARWHC3 13:33
PROVIDERS: ATTEND Surgery Plastic and Reconstructive Surgery
DX: E66.01 Morbid (severe) obesity due to excess calories (principal); E55.9 Vitamin D deficiency, unspecified; F32.9 Major depressive disorder, single episode, unspecified; F41.9 Anxiety disorder, unspecified; G47.33 Obstructive sleep apnea (adult) (pediatric); I47.1 Supraventricular tachycardia; K21.9 Gastro-esophageal reflux disease without esophagitis; F17.200 Nicotine dependence, unspecified, uncomplicated; K29.70 Gastritis, unspecified, without bleeding; M17.0 Bilateral primary osteoarthritis of knee; D72.829 Elevated white blood cell count, unspecified; B96.81 Helicobacter pylori [H. pylori] as the cause of diseases classified elsewhere; E61.1 Iron deficiency; E60 Dietary zinc deficiency; Z71.3 Dietary counseling and surveillance; Z91.040 Latex allergy status
CPT/HCPCS: 99211

== ENCOUNTER 2021-07-27 12:08 | Emergency (ER) | payer OTHER ==
[2021-07-27 14:44] VITALS: RESP 20
--- NOTE | 2021-07-27 15:12 | XR ---
EXAMINATION TYPE: XR chest 2V DATE OF EXAM: 07/27/2021 COMPARISON: NONE TECHNIQUE: PA and lateral views submitted. HISTORY: Shortness of breath and cough FINDINGS: The lungs are clear and there is no pneumothorax, pleural effusion, or focal pneumonia. Heart size is normal. No overt failure. Biapical pleural thickening. IMPRESSION: 1. No acute process.
--- NOTE | 2021-07-27 16:19 | ED ---
General Adult HPI - General Chief complaint: Upper Respiratory Infection Stated complaint: SOB Time Seen by Provider: 07/27/21 16:01 Source: patient, RN notes reviewed Mode of arrival: ambulatory Limitations: no limitations - History of Present Illness Initial comments: 30-year-old female presents to the emergency Department with complaints of headache, body aches, cough, and, onset 2 days prior to arrival. Patient states she has had multiple sick contacts but no known Covid contact. Patient states she has not taken any medications prior to arrival. Denies fever at home. States she has been chilled and achy however. Patient does report some shortness of breath with activity and decreased appetite. Denies chest pain, difficulty breathing, abdominal pain, and dysuria or hematuria. - Related Data Home Medications Medication Instructions Recorded Confirmed Citalopram Hydrobromide [CeleXA] 20 mg PO DAILY 06/21/19 07/08/21 QUEtiapine [SEROquel] 25 mg PO HS 07/31/20 07/08/21 Omeprazole [PriLOSEC] 20 mg PO DIRECTED PRN 12/24/20 07/08/21 traZODone HCL 50 mg PO HS 12/24/20 07/08/21 Previous Rx's Medication Instructions Recorded Albuterol Inhaler [Ventolin Hfa 1 puff INHALATION RT-QID PRN #1 01/17/20 Inhaler] puff Omeprazole [PriLOSEC] 40 mg PO DAILY #90 cap 12/24/20 Ondansetron Odt [Zofran Odt] 4 mg PO Q8HR PRN #10 tab 07/27/21 Allergies Allergy/AdvReac Type Severity Reaction Status Date / Time latex Allergy Rash/Hives Verified 07/27/21 14:41 Review of Systems ROS Statement: Those systems with pertinent positive or pertinent negative responses have been documented in the HPI. ROS Other: All systems not noted in ROS Statement are negative. Past Medical History Past Medical History: GERD/Reflux History of Any Multi-Drug Resistant Organisms: None Reported Past Surgical History: Section, Cholecystectomy, Tubal Ligation Additional Past Surgical History / Comment(s): 2008 AND 2015 (c/s) and 2010 (cholecyst) Past Anesthesia/Blood Transfusion Reactions: No Reported Reaction Past Psychological History: Anxiety, Bipolar, Depression Smoking Status: Current every day smoker Past Alcohol Use History: Rare Past Drug Use History: None Reported - Past Family History Mother Family Medical History: Asthma, COPD, Diabetes Mellitus, Hypertension Additional Family Medical History / Comment(s): depression, anxiety, sleep apnea, Father Family Medical History: Hypertension Additional Family Medical History / Comment(s): arthritis General Exam Limitations: no limitations (Well-developed, well-nourished female in no acute distress. Initial temperature 98.5, pulse 87, respirations 20, blood pressure 102/60, pulse ox 100% on room air.) General appearance: alert, in no apparent distress ENT exam: Present: normal exam, normal oropharynx, mucous membranes moist Neck exam: Present: normal inspection. Absent: tenderness, meningismus, lymphadenopathy Respiratory exam: Present: normal lung sounds bilaterally. Absent: respiratory distress, wheezes, rales, rhonchi, stridor Cardiovascular Exam: Present: regular rate, normal rhythm, normal heart sounds. Absent: systolic murmur, diastolic murmur, rubs, gallop, clicks GI/Abdominal exam: Present: soft, normal bowel sounds. Absent: distended, tenderness, guarding, rebound, rigid Neurological exam: Present: alert, oriented X3, CN II-XII intact Psychiatric exam: Present: normal affect, normal mood Skin exam: Present: warm, dry, intact, normal color. Absent: rash Course Vital Signs 07/27/21 07/27/21 07/27/21 14:42 16:29 17:24 Temperature 98.5 F 98.8 F 98.8 F Pulse Rate 87 74 82 Respiratory 20 20 Rate Blood Pressure 102/68 102/59 96/59 O2 Sat by Pulse 100 100 100 Oximetry Medical Decision Making - Medical Decision Making 30-year-old female presents to the emergency Department with complaints of headache, malaise, nausea, and cough. Upon exam, patient is well-appearing, afebrile, and not tachycardic or tachypneic. Patient is most bothered by the persistence of her symptoms but denies any difficulty breathing. IV fluids were administered and patient was given pain medicine and nausea medicine with significant improvement. Patient's Covid test is positive. Monoclonal antibody infusion was discussed with patient, questions answered, she verbalizes understanding and agrees to infusion. Monoclonal antibody infusion was well tolerated. Patient will be discharged home to follow up with primary care as needed. Instructed to quarantined for 10 days from symptom onset. Return parameters were discussed in detail. Patient verbalizes understanding and agrees with this plan. - Lab Data Lab Results 07/27/21 Range/Units 14:47 Coronavirus (PCR) Detected A (Not Detectd) Disposition Clinical Impression: COVID-19 Disposition: HOME SELF-CARE Condition: Stable Instructions (If sedation given, give patient instructions): Coronavirus Disease 2019 (COVID-19) Additional Instructions: Rest. Increase fluids. Take Tylenol or Motrin as needed for pain or fever. May take Zofran for nausea. Quarantine for 10 days from symptom onset. Follow-up with primary care as needed for recheck. Return to the emergency department with any new, worsening, or concerning symptoms. Prescriptions: Ondansetron Odt [Zofran Odt] 4 mg PO Q8HR PRN #10 tab PRN Reason: Nausea Is patient prescribed a controlled substance at d/c from ED?: No Referrals: Justin Molina MD [Primary Care Provider] - 1-2 days Time of Disposition: 17:57
[2021-07-27] MEDS ORDERED: SODIUM CHLORIDE 0.9% 1,000 ML IV STA (16:20)
[2021-07-27] MEDS ORDERED: KETOROLAC 15 MG/ML 1 ML VIAL IVP STA (16:20)
[2021-07-27] MEDS ORDERED: ONDANSETRON 4 MG/2 ML VIAL IVP STA (16:20)
[2021-07-27] MEDS ORDERED: CASIRIVIMAB (REGN10933) (EUA) 600 MG, IMDEVIMAB (REGN10987) (EUA) 600 MG in SODIUM CHLO... IVPB ONE (16:30)
[2021-07-27] MEDS ORDERED: SODIUM CHLORIDE 0.9% 50 ML IVPB ONE (16:30)
[2021-07-27 16:33] VITALS: TEMP 98.8
[2021-07-27 17:25] VITALS: BP 96/59; PULSE 82
== END 2021-07-27 18:13 | disposition home or self-care (01) ==
LOC: EC 12:08
DX: U07.1 COVID-19 (principal); K21.9 Gastro-esophageal reflux disease without esophagitis; F41.9 Anxiety disorder, unspecified; F31.9 Bipolar disorder, unspecified; F17.200 Nicotine dependence, unspecified, uncomplicated; Z91.040 Latex allergy status; Z90.49 Acquired absence of other specified parts of digestive tract; Z98.51 Tubal ligation status
CPT/HCPCS: 99285 ×2; 96375 ×3; 96361 ×2; 87635; 71046; M0243; J2405; J1885; Q0243; 96374

== ENCOUNTER 2021-07-28 21:24 | Emergency (ER) | payer OTHER ==
[2021-07-28 21:35] VITALS: TEMP 99.2
[2021-07-28 23:20] LABS: Basophils % (A) 1 %; Eosinophils # (A) 0.4 k/uL (0-0.7); Eosinophils % (A) 4 %; HCT 35.7 % (34.0-46.0); HGB 11.7 gm/dL (11.4-16.0); Lymphocytes # (A) 2.7 k/uL (1.0-4.8); Lymphocytes % (A) 32 %; MCHC 32.7 g/dL (31.0-37.0); MCV 88.9 fL (80.0-100.0); Mean Platelet Volume 8.1; Monocytes # (A) 0.5 k/uL (0-1.0); Monocytes % (A) 6 %; Neutrophils # (A) 4.7 k/uL (1.3-7.7); Neutrophils % (A) 55 %; Platelet Count 358 k/uL (150-450); Poikilocytosis Slight; RBC 4.02 m/uL (3.80-5.40); RDW 15.5 % (11.5-15.5); WBC 8.5 k/uL (3.8-10.6)
[2021-07-28 23:28] LABS: ALT 20 U/L (4-34); AST 19 U/L (14-36); African American GFR (CKD) >90 (>60 ml/min/1.73 sqM); Albumin 3.5 g/dL (3.5-5.0); Alkaline Phosphatase 56 U/L (38-126); Anion Gap 7 mmol/L; Blood Urea Nitrogen 11 mg/dL (7-17); Calcium 9.1 mg/dL (8.4-10.2); Carbon Dioxide 20 mmol/L (22-30); Chloride 112 mmol/L (98-107); Glucose 102 mg/dL (74-99); Non-African American GFR(CKD) 84 (>60 ml/min/1.73 sqM); Potassium 4.1 mmol/L (3.5-5.1); Sodium 139 mmol/L (137-145); Total Bilirubin <0.1 mg/dL (0.2-1.3); Total Protein 6.3 g/dL (6.3-8.2)
--- NOTE | 2021-07-28 23:29 | XR ---
EXAMINATION TYPE: XR chest 2V DATE OF EXAM: 07/28/2021 COMPARISON: 07/27/2021 HISTORY: Chest pain TECHNIQUE: 2 views FINDINGS: Heart and mediastinum are normal. Lungs are clear. Diaphragm is normal. Bony thorax is inta ct. IMPRESSION: Normal chest. No change.
--- NOTE | 2021-07-28 23:56 | ED ---
General Adult HPI - General Chief complaint: Recheck/Abnormal Lab/Rx Stated complaint: COVID+,Weakness Revisit Time Seen by Provider: 07/28/21 22:53 Source: patient Mode of arrival: ambulatory Limitations: no limitations - History of Present Illness Initial comments: This patient is a 30-year-old woman who is having increasing upper chest pains. She states she has been having a cough going back approximately 2-3 days. She was diagnosed with COVID-19 infection. The patient states that the coughing seems to getting a little worse and she was having chest pain tonight. Also fever and chills. -: days(s) Location: chest Quality: aching Consistency: constant Improves with: none Worsens with: other (Cough) Associated Symptoms: chest pain, cough, fever/chills, headaches, malaise Treatments Prior to Arrival: NSAID - Related Data Home Medications Medication Instructions Recorded Confirmed Citalopram Hydrobromide [CeleXA] 20 mg PO DAILY 06/21/19 07/08/21 QUEtiapine [SEROquel] 25 mg PO HS 07/31/20 07/08/21 Omeprazole [PriLOSEC] 20 mg PO DIRECTED PRN 12/24/20 07/08/21 traZODone HCL 50 mg PO HS 12/24/20 07/08/21 Previous Rx's Medication Instructions Recorded Albuterol Inhaler [Ventolin Hfa 1 puff INHALATION RT-QID PRN #1 01/17/20 Inhaler] puff Omeprazole [PriLOSEC] 40 mg PO DAILY #90 cap 12/24/20 Ondansetron Odt [Zofran Odt] 4 mg PO Q8HR PRN #10 tab 07/27/21 Allergies Allergy/AdvReac Type Severity Reaction Status Date / Time latex Allergy Rash/Hives Verified 07/28/21 21:31 Review of Systems ROS Statement: Those systems with pertinent positive or pertinent negative responses have been documented in the HPI. ROS Other: All systems not noted in ROS Statement are negative. Constitutional: Reports: fever, chills Respiratory: Reports: cough, dyspnea. Denies: wheezes Cardiovascular: Reports: chest pain. Denies: palpitations Gastrointestinal: Denies: abdominal pain, nausea, vomiting, diarrhea Genitourinary: Denies: dysuria, hematuria Skin: Denies: rash Neurological: Reports: headache. Denies: weakness, numbness Past Medical History Past Medical History: GERD/Reflux History of Any Multi-Drug Resistant Organisms: None Reported Past Surgical History: Section, Cholecystectomy, Tubal Ligation Additional Past Surgical History / Comment(s): 2009 AND 2015 (c/s) and 2010 (cholecyst) Past Anesthesia/Blood Transfusion Reactions: No Reported Reaction Past Psychological History: Anxiety, Bipolar, Depression Smoking Status: Current every day smoker Past Alcohol Use History: Rare Past Drug Use History: None Reported - Past Family History Mother Family Medical History: Asthma, COPD, Diabetes Mellitus, Hypertension Additional Family Medical History / Comment(s): depression, anxiety, sleep apnea, Father Family Medical History: Hypertension Additional Family Medical History / Comment(s): arthritis General Exam Limitations: no limitations General appearance: alert, in no apparent distress Head exam: Present: atraumatic, normocephalic Eye exam: Present: normal appearance Respiratory exam: Present: normal lung sounds bilaterally. Absent: respiratory distress, wheezes, rales, rhonchi, stridor Cardiovascular Exam: Present: regular rate, normal rhythm, normal heart sounds. Absent: systolic murmur, diastolic murmur, rubs, gallop GI/Abdominal exam: Present: soft. Absent: distended, tenderness, guarding, rebound, rigid, mass Extremities exam: Present: normal inspection, normal capillary refill. Absent: pedal edema, calf tenderness Neurological exam: Present: alert Skin exam: Present: warm, dry, intact, normal color. Absent: rash Course Vital Signs 07/28/21 07/29/21 21:31 00:00 Temperature 99.2 F Pulse Rate 88 61 Respiratory 18 16 Rate Blood Pressure 119/81 114/77 O2 Sat by Pulse 99 99 Oximetry EKG Findings - EKG Results: EKG: interpreted by ERMD, sinus rhythm (Rate 72 bpm), normal axis, normal QRS, normal ST/T, no acute changes Medical Decision Making - Lab Data Result diagrams: 07/28/21 23:07 07/28/21 23:07 Lab Results 07/28/21 07/28/21 07/28/21 Range/Units 23:07 23:07 23:07 WBC 8.5 (3.8-10.6) k/uL RBC 4.02 (3.80-5.40) m/uL Hgb 11.7 (11.4-16.0) gm/dL Hct 35.7 (34.0-46.0) % MCV 88.9 (80.0-100.0) fL MCH 29.0 (25.0-35.0) pg MCHC 32.7 (31.0-37.0) g/dL RDW 15.5 (11.5-15.5) % Plt Count 358 (150-450) k/uL MPV 8.1 Neutrophils % 55 % Lymphocytes % 32 % Monocytes % 6 % Eosinophils % 4 % Basophils % 1 % Neutrophils # 4.7 (1.3-7.7) k/uL Lymphocytes # 2.7 (1.0-4.8) k/uL Monocytes # 0.5 (0-1.0) k/uL Eosinophils # 0.4 (0-0.7) k/uL Basophils # 0.0 (0-0.2) k/uL Poikilocytosis Slight D-Dimer 1.14 H (<0.60) mg/L FEU Sodium 139 (137-145) mmol/L Potassium 4.1 (3.5-5.1) mmol/L Chloride 112 H (98-107) mmol/L Carbon Dioxide 20 L (22-30) mmol/L Anion Gap 7 mmol/L BUN 11 (7-17) mg/dL Creatinine 0.91 (0.52-1.04) mg/dL Est GFR (CKD-EPI)AfAm >90 (>60 ml/min/1.73 sqM) Est GFR (CKD-EPI)NonAf 84 (>60 ml/min/1.73 sqM) Glucose 102 H (74-99) mg/dL Calcium 9.1 (8.4-10.2) mg/dL Total Bilirubin <0.1 L (0.2-1.3) mg/dL AST 19 (14-36) U/L ALT 20 (4-34) U/L Alkaline Phosphatase 56 (38-126) U/L Total Protein 6.3 (6.3-8.2) g/dL Albumin 3.5 (3.5-5.0) g/dL Disposition Clinical Impression: COVID-19 Disposition: HOME SELF-CARE Condition: Good Instructions (If sedation given, give patient instructions): Coronavirus Disease 2019 (COVID-19) Is patient prescribed a controlled substance at d/c from ED?: No Referrals: Justin Molina MD [Primary Care Provider] - 1-2 days
[2021-07-29 00:35] VITALS: BP 114/77; PULSE 61; RESP 16
--- NOTE | 2021-07-29 00:45 | CT ---
EXAMINATION TYPE: CT chest angio for PE DATE OF EXAM: 07/29/2021 COMPARISON: 01/17/2020 HISTORY: elevated d-dimer CT DLP: 608 mGycm Automated exposure control for dose reduction was used. CONTRAST: Performed with IV Contrast, patient injected with 90 mL of Isovue 370. There are 3-D post processed images. The lungs are clear of infiltrate. There is no evidence of a pulmonary mass. There is no pleural effu harjit. There is no mediastinal adenopathy. There are no hilar masses. Heart is borderline enlarged. There is no pericardial effusion. There is no evidence of filling defect in the pulmonary arteries. Thoracic aorta is intact. There is no aneurysm or dissection. Thoracic spine is intact. There is no compression fracture. Sternum is int act. Upper abdominal soft tissues are intact. IMPRESSION: No evidence of pulmonary embolism. Negative exam. No adverse change.
== END 2021-07-29 01:29 | disposition home or self-care (01) ==
LOC: EC 21:24
DX: U07.1 COVID-19 (principal); K21.9 Gastro-esophageal reflux disease without esophagitis; F41.9 Anxiety disorder, unspecified; F31.9 Bipolar disorder, unspecified; F17.200 Nicotine dependence, unspecified, uncomplicated; Z90.49 Acquired absence of other specified parts of digestive tract; Z91.040 Latex allergy status; Z98.51 Tubal ligation status
CPT/HCPCS: 99285; 36415; 93005; 85379; 80053; 85025; 71046; 71275; Q9967

== ENCOUNTER 2021-08-27 21:51 | Emergency (ER) | payer OTHER ==
[2021-08-27 22:04] VITALS: TEMP 98.5
--- NOTE | 2021-08-27 22:39 | ED ---
General Adult HPI - General Chief complaint: Urogenital Stated complaint: Pelvic pain Time Seen by Provider: 08/27/21 22:12 Source: patient Mode of arrival: ambulatory Limitations: no limitations - History of Present Illness Initial comments: 31-year-old female presents to the emergency room for a chief complaint of vaginal itching. States for the past 2 days patient has had vaginal itching and burning. States that she is also having some lower pelvic cramping. She denies any fevers. Patient states she tried to use Monistat earlier today and it increased her burning sensation. Patient does not believe she has any STDs. She does not believe she is .Patient has no other complaints at this time including shortness of breath, chest pain, abdominal pain, nausea or vomiting, headache, or visual changes. - Related Data Home Medications Medication Instructions Recorded Confirmed Citalopram Hydrobromide [CeleXA] 20 mg PO DAILY 06/21/19 07/08/21 QUEtiapine [SEROquel] 25 mg PO HS 07/31/20 07/08/21 Omeprazole [PriLOSEC] 20 mg PO DIRECTED PRN 12/24/20 07/08/21 traZODone HCL 50 mg PO HS 12/24/20 07/08/21 Previous Rx's Medication Instructions Recorded Albuterol Inhaler [Ventolin Hfa 1 puff INHALATION RT-QID PRN #1 01/17/20 Inhaler] puff Omeprazole [PriLOSEC] 40 mg PO DAILY #90 cap 12/24/20 Ondansetron Odt [Zofran Odt] 4 mg PO Q8HR PRN #10 tab 07/27/21 Allergies Allergy/AdvReac Type Severity Reaction Status Date / Time latex Allergy Rash/Hives Verified 08/27/21 22:04 Review of Systems ROS Statement: Those systems with pertinent positive or pertinent negative responses have been documented in the HPI. ROS Other: All systems not noted in ROS Statement are negative. Past Medical History Past Medical History: GERD/Reflux History of Any Multi-Drug Resistant Organisms: None Reported Past Surgical History: Section, Cholecystectomy, Tubal Ligation Additional Past Surgical History / Comment(s): 2008 AND 2015 (c/s) and 2010 (cholecyst) Past Anesthesia/Blood Transfusion Reactions: No Reported Reaction Past Psychological History: Anxiety, Bipolar, Depression Smoking Status: Current some day smoker Past Alcohol Use History: Rare Past Drug Use History: None Reported - Past Family History Mother Family Medical History: Asthma, COPD, Diabetes Mellitus, Hypertension Additional Family Medical History / Comment(s): depression, anxiety, sleep apnea, Father Family Medical History: Hypertension Additional Family Medical History / Comment(s): arthritis General Exam Limitations: no limitations General appearance: alert, in no apparent distress Head exam: Present: atraumatic Eye exam: Present: normal appearance, PERRL, EOMI. Absent: scleral icterus, conjunctival injection ENT exam: Present: normal exam, mucous membranes moist Neck exam: Present: normal inspection, full ROM. Absent: tenderness Respiratory exam: Present: normal lung sounds bilaterally. Absent: respiratory distress, wheezes Cardiovascular Exam: Present: regular rate, normal rhythm, normal heart sounds GI/Abdominal exam: Present: soft, normal bowel sounds. Absent: distended, tenderness External exam: Present: normal external exam. Absent: erythema, swelling, lesions, lacerations, ecchymosis Speculum exam: Present: normal speculum exam, other (Patient did have remnants of Monistat in the vaginal canal which did limit the exam somewhat.). Absent: erythema, vaginal discharge, cervical discharge, vaginal bleeding, foreign body By manual exam: Present: normal by manual exam. Absent: cervical motion tenderness, adnexal tenderness, uterine tenderness Course Vital Signs 08/27/21 22:01 Temperature 98.5 F Pulse Rate 94 Respiratory 18 Rate Blood Pressure 127/84 O2 Sat by Pulse 99 Oximetry Medical Decision Making - Medical Decision Making vitals are stable. HPI and physical exam as documented. Pelvic exam was limited secondary to patient using Monistat earlier today. CT negative. Trichomonas negative. Gonorrhea and chlamydia pending. She does not want empiric treatment. We will treat patient with Diflucan for possible yeast infection and Flagyl for possible BV.. She will follow-up with her doctor. She will return for any worsening symptoms. - Lab Data Lab Results 08/27/21 08/27/21 08/27/21 Range/Units 22:41 22:41 22:41 Urine Color Yellow Urine Appearance Cloudy H (Clear) Urine pH 6.5 (5.0-8.0) Ur Specific [place] 1.019 (1.001-1.035) Urine Protein Negative (Negative) Urine Glucose (UA) Negative (Negative) Urine Ketones Negative (Negative) Urine Blood Negative (Negative) Urine Nitrite Negative (Negative) Urine Bilirubin Negative (Negative) Urine Urobilinogen <2.0 (<2.0) mg/dL Ur Leukocyte Esterase Trace H (Negative) Urine WBC 4 (0-5) /hpf Ur Squamous Epith Cells 4 (0-4) /hpf Amorphous Sediment Occasional H (None) /hpf Urine Bacteria Occasional H (None) /hpf Hyaline Casts 7 H (0-2) /lpf Urine Mucus Occasional H (None) /hpf Urine HCG, Qual Not Detected (Not Detectd) Trichomonas Ag (Rapid) Negative (Negative) Disposition Clinical Impression: Vaginal discharge, Genital pruritus Disposition: HOME SELF-CARE Condition: Good Instructions (If sedation given, give patient instructions): Vaginal Discharge (ED) Additional Instructions: Please follow up with primary care in 1-2 days. Return to the ER for any worsening symptoms. Is patient prescribed a controlled substance at d/c from ED?: No Referrals: Justin Molina MD [Primary Care Provider] - 1-2 days Time of Disposition: 23:34
[2021-08-27 23:13] LABS: Amorphous Sediment,Urine Occasional /hpf; Appearance,Urine Cloudy (Clear); Bacteria,Urine Occasional /hpf; Bilirubin,Urine Negative (Negative); Blood,Urine Negative (Negative); Color,Urine Yellow; Glucose,Urine (UA) Negative (Negative); Hyaline Casts,Urine 7 /lpf (0-2); Ketones,Urine Negative (Negative); Leukocyte Esterase,Urine Trace (Negative); Mucus,Urine Occasional /hpf; Nitrite,Urine Negative (Negative); PH, Urine 6.5 (5.0-8.0); Protein,Urine Negative (Negative); Specific Gravity,Urine 1.019 (1.001-1.035); Squamous Epithelial Cell,Urine 4 /hpf (0-4); Urobilinogen,Urine <2.0 mg/dL (<2.0); WBC,Urine 4 /hpf (0-5)
[2021-08-27] MEDS ORDERED: metroNIDAZOLE 500 MG TAB PO STA (23:24)
[2021-08-27] MEDS ORDERED: FLUCONAZOLE 150 MG TAB PO STA (23:24)
[2021-08-27 23:40] VITALS: BP 105/57; PULSE 75; RESP 16
== END 2021-08-28 00:17 | disposition home or self-care (01) ==
LOC: EC 21:51
DX: N89.8 Other specified noninflammatory disorders of vagina (principal); L29.3 Anogenital pruritus, unspecified; K21.9 Gastro-esophageal reflux disease without esophagitis; F31.9 Bipolar disorder, unspecified; F41.9 Anxiety disorder, unspecified; F17.200 Nicotine dependence, unspecified, uncomplicated; Z79.51 Long term (current) use of inhaled steroids; Z79.899 Other long term (current) drug therapy
CPT/HCPCS: 81001; 81025; 87491; 87591; 87808; 99284

== ENCOUNTER → 2022-07-16 | Outpatient (CLI) | payer OTHER | END | disposition home or self-care (01) | LOC: LABWHC1 12:30 | PROVIDERS: ATTEND Emergency Medicine | DX: Z56.9 Unspecified problems related to employment (principal) | CPT/HCPCS: 36415; 86480 ==

== ENCOUNTER 2023-03-25 12:00 | Inpatient (IN) | payer MEDICAID, OTHER ==
--- NOTE | 2023-03-25 12:32 | ED ---
General Adult HPI - General Chief complaint: Psychiatric Symptoms Stated complaint: mental health Time Seen by Provider: 03/25/23 12:19 Source: patient, RN notes reviewed Mode of arrival: ambulatory Limitations: no limitations - History of Present Illness Initial comments: Patient is a pleasant 32-year-old female presenting to the emergency department concerns for depression. Symptoms have worsened recently. Patient has have suicidal thoughts with plan. No homicidal thoughts. No hallucinations. No physical complaints. No alcohol or street drug use. Patient does have history of bipolar similar symptoms and states that she has been taking her medication. - Related Data Home Medications Medication Instructions Recorded Confirmed Citalopram Hydrobromide [CeleXA] 40 mg PO DAILY 09/16/21 03/25/23 QUEtiapine [SEROquel] 100 mg PO HS 09/16/21 03/25/23 Topiramate [Topamax] 50 mg PO DAILY 09/16/21 03/25/23 traZODone HCL [Desyrel] 50 mg PO HS 08/23/22 03/25/23 Dulaglutide [Trulicity] 1.5 mg SQ FR 03/25/23 03/25/23 Ergocalciferol [Vitamin D2 (1250 1,250 mcg PO WE 03/25/23 03/25/23 Mcg = [id number] Iu)] Ferrous Sulfate [Feosol] 325 mg PO DAILY 03/25/23 03/25/23 busPIRone HCl [Buspar] 5 mg PO BID@1100,1700 03/25/23 03/25/23 Allergies Allergy/AdvReac Type Severity Reaction Status Date / Time latex Allergy Rash/Hives Verified 03/25/23 13:44 Review of Systems ROS Statement: Those systems with pertinent positive or pertinent negative responses have been documented in the HPI. ROS Other: All systems not noted in ROS Statement are negative. Constitutional: Denies: fever Eyes: Denies: eye pain ENT: Denies: ear pain Respiratory: Denies: cough, dyspnea Cardiovascular: Denies: chest pain Endocrine: Denies: fatigue Gastrointestinal: Denies: abdominal pain Past Medical History Past Medical History: GERD/Reflux, Sleep Apnea/CPAP/BIPAP Additional Past Medical History / Comment(s): iron defiency anemia, currently getting iron infusions History of Any Multi-Drug Resistant Organisms: None Reported Past Surgical History: Section, Cholecystectomy, Tubal Ligation Additional Past Surgical History / Comment(s): 2009 AND 2015 (c/s) and 2010 (cholecyst) Past Anesthesia/Blood Transfusion Reactions: No Reported Reaction Past Psychological History: Anxiety, Bipolar, Depression Smoking Status: Current every day smoker Past Alcohol Use History: Occasional Past Drug Use History: None Reported - Past Family History Mother Family Medical History: Asthma, COPD, Diabetes Mellitus, Hypertension Additional Family Medical History / Comment(s): depression, anxiety, sleep apnea, Father Family Medical History: Hypertension Additional Family Medical History / Comment(s): arthritis General Exam Limitations: no limitations General appearance: alert, in no apparent distress Head exam: Present: normocephalic Eye exam: Present: normal appearance Neck exam: Present: normal inspection Respiratory exam: Present: normal lung sounds bilaterally Cardiovascular Exam: Present: regular rate, normal rhythm Extremities exam: Present: normal inspection Neurological exam: Present: alert Psychiatric exam: Present: depressed Skin exam: Present: normal color Course Vital Signs 03/25/23 12:14 Temperature 98.3 F Pulse Rate 78 Respiratory 20 Rate Blood Pressure 123/78 O2 Sat by Pulse 99 Oximetry Medical Decision Making - Medical Decision Making Was pt. sent in by a medical professional or institution (, PA, SMALL EQUIPMENT OPERATOR, urgent care, hospital, or [facility]...) When possible be specific @ -No Did you speak to anyone other than the patient for history (EMS, parent, family, police, friend...)? What history was obtained from this source @ -No Did you review nursing and triage notes (agree or disagree)? Why? @ -I reviewed and agree with nursing and triage notes Were old charts reviewed (outside hosp., previous admission, EMS record, old EKG, old radiological studies, urgent care reports/EKG's, [facility] records)? Report findings @ -No old charts were reviewed Differential Diagnosis (chest pain, altered mental status, abdominal pain women, abdominal pain men, vaginal bleeding, weakness, fever, dyspnea, syncope, headache, dizziness, GI bleed, back pain, seizure, CVA, palpatations, mental health, musculoskeletal)? @ -M.D. himDifferential Mental Health Depression, anxiety, bipolar, psychosis, schizophrenia, borderline personality, situational depression, adjustment disorder, behavioral disorder, brain tumor, m alingering, substance abuse, encephalopathy, medication reaction, dementia, hypothyroidism, degenerative neurologic disorder, lupus.... This is not meant to be all-inclusive list EKG interpreted by me (3pts min.). @ -As above X-rays interpreted by me (1pt min.). @ -None done CT interpreted by me (1pt min.). @ -None done U/S interpreted by me (1pt. min.). @ -None done What testing was considered but not performed or refused? (CT, X-rays, U/S, labs)? Why? @ -None What meds were considered but not given or refused? Why? @ -None Did you discuss the management of the patient with other professionals (professionals i.e. Dr., PA, SMALL EQUIPMENT OPERATOR, lab, RT, psych nurse, rn social work, improvement analyst, teacher, business liaison officer, case filler)? Give summary @ -Case was discussed with mental health nurse with plans for admission Was smoking cessation discussed for >3mins.? @ -No Was critical care preformed (if so, how long)? @ -No Were there social determinants of health that impacted care today? How? (Homelessness, low income, unemployed, alcoholism, drug addiction, transportation, low edu. Level, literacy, decrease access to med. care, penitentiary, rehab)? @ -No Was there de-escalation of care discussed even if they declined (Discuss DNR or withdrawal of care, Hospice)? DNR status @ -No What co-morbidities impacted this encounter? (DM, HTN, Smoking, COPD, CAD, Cancer, CVA, ARF, Chemo, Hep., AIDS, mental health diagnosis, sleep apnea, morbid obesity)? @ -None Was patient admitted / discharged? Hospital course, mention meds given and route, prescriptions, significant lab abnormalities, going to OR and other pertinent info. @ -Patient presents with depression and suicidal ideation. Patient will be admitted to alcohol 4. Undiagnosed new problem with uncertain prognosis? @ -No Drug Therapy requiring intensive monitoring for toxicity (Heparin, Nitro, Insulin, Cardizem)? @ -No Were any procedures done? @ -No Diagnosis/symptom? @ -Depression, suicidal ideation Acute, or Chronic, or Acute on Chronic? @ -Acute on chronic, acute on chronic Uncomplicated (without systemic symptoms) or Complicated (systemic symptoms)? @ -default Side effects of treatment? @ -No Exacerbation, Progression, or Severe Exacerbation? @ -No Poses a threat to life or bodily function? How? (Chest pain, [place], [place], pneumonia, PE, COPD, DKA, ARF, appy, cholecystitis, CVA, Diverticulitis, Homicidal, Suicidal, threat to staff... and all critical care pts) @ -No - Lab Data Lab Results 03/25/23 03/25/23 03/25/23 Range/Units 14:16 14:25 14:27 POC Glucose (mg/dL) (70-110) mg/dL POC Glu Sustainability Coach ID Urine Color Yellow Urine Appearance Cloudy H (Clear) Urine pH 7.5 (5.0-8.0) Ur Specific [place] 1.014 (1.001-1.035) Urine Protein Negative (Negative) Urine Glucose (UA) Negative (Negative) Urine Ketones Negative (Negative) Urine Blood Negative (Negative) Urine Nitrite Negative (Negative) Urine Bilirubin Negative (Negative) Urine Urobilinogen <2.0 (<2.0) mg/dL Ur Leukocyte Esterase Negative (Negative) Urine RBC 3 (0-5) /hpf Urine WBC <1 (0-5) /hpf Ur Squamous Epith Cells 8 H (0-4) /hpf Urine Mucus Rare H (None) /hpf Urine HCG, Qual Not Detected (Not Detectd) Urine Opiates Screen Not Detected (NotDetected) Ur Oxycodone Screen Not Detected (NotDetected) Urine Methadone Screen Not Detected (NotDetected) Ur Propoxyphene Screen Not Detected (NotDetected) Ur Barbiturates Screen Not Detected (NotDetected) U Tricyclic Antidepress Not Detected (NotDetected) Ur Phencyclidine Scrn Not Detected (NotDetected) Ur Amphetamines Screen Not Detected (NotDetected) U Methamphetamines Scrn Not Detected (NotDetected) U Benzodiazepines Scrn Not Detected (NotDetected) Urine Cocaine Screen Not Detected (NotDetected) U Marijuana (THC) Screen Not Detected (NotDetected) Coronavirus (PCR) (Not Detectd) 03/25/23 03/25/23 Range/Units 14:42 14:49 POC Glucose (mg/dL) 102 (70-110) mg/dL POC Glu Sustainability Coach ID Ramon, Tricia Urine Color Urine Appearance (Clear) Urine pH (5.0-8.0) Ur Specific [place] (1.001-1.035) Urine Protein (Negative) Urine Glucose (UA) (Negative) Urine Ketones (Negative) Urine Blood (Negative) Urine Nitrite (Negative) Urine Bilirubin (Negative) Urine Urobilinogen (<2.0) mg/dL Ur Leukocyte Esterase (Negative) Urine RBC (0-5) /hpf Urine WBC (0-5) /hpf Ur Squamous Epith Cells (0-4) /hpf Urine Mucus (None) /hpf Urine HCG, Qual (Not Detectd) Urine Opiates Screen (NotDetected) Ur Oxycodone Screen (NotDetected) Urine Methadone Screen (NotDetected) Ur Propoxyphene Screen (NotDetected) Ur Barbiturates Screen (NotDetected) U Tricyclic Antidepress (NotDetected) Ur Phencyclidine Scrn (NotDetected) Ur Amphetamines Screen (NotDetected) U Methamphetamines Scrn (NotDetected) U Benzodiazepines Scrn (NotDetected) Urine Cocaine Screen (NotDetected) U Marijuana (THC) Screen (NotDetected) Coronavirus (PCR) Not Detected (Not Detectd) Disposition Clinical Impression: Suicidal ideation, Depression Disposition: TRANSFER TO PSYCH HOSP/UNIT Is patient prescribed a controlled substance at d/c from ED?: No Referrals: Justin Molina MD [Primary Care Provider] - 1-2 days Time of Disposition: 16:15
[2023-03-25] MEDS ORDERED: NICOTINE 14MG/24HR PATCH TRANSDERM ONE (14:25)
[2023-03-25] MEDS ORDERED: LORazepam 1 MG TAB PO ONE (14:25)
[2023-03-25 14:51] LABS: Glucose,Whole Blood 102 mg/dL (70-110)
[2023-03-25 15:08] LABS: Amphetamine Screen,Urine Not Detected (NotDetected); Barbiturate Screen,Urine Not Detected (NotDetected); Benzodiazepines Screen,Urine Not Detected (NotDetected); Cocaine Screen,Urine Not Detected (NotDetected); Methadone Screen, Urine Not Detected (NotDetected); Opiate Screen,Urine Not Detected (NotDetected); Oxycodone Screen, Urine Not Detected (NotDetected); Phencyclidine Screen,Urine Not Detected (NotDetected); Tricyclic Antidepressant,Urine Not Detected (NotDetected); Urn Cannabinoid Scrn Not Detected (NotDetected)
[2023-03-25 15:16] LABS: Appearance,Urine Cloudy (Clear); Bilirubin,Urine Negative (Negative); Blood,Urine Negative (Negative); Color,Urine Yellow; Glucose,Urine (UA) Negative (Negative); Ketones,Urine Negative (Negative); Leukocyte Esterase,Urine Negative (Negative); Mucus,Urine Rare /hpf; Nitrite,Urine Negative (Negative); PH, Urine 7.5 (5.0-8.0); Protein,Urine Negative (Negative); RBC,Urine 3 /hpf (0-5); Specific Gravity,Urine 1.014 (1.001-1.035); Squamous Epithelial Cell,Urine 8 /hpf (0-4); Urobilinogen,Urine <2.0 mg/dL (<2.0); WBC,Urine <1 /hpf (0-5)
[2023-03-25] MEDS ORDERED: ACETAMINOPHEN TAB 325 MG TAB PO PRN (18:03)
[2023-03-25] MEDS ORDERED: hydrOXYzine HCL 50 MG/ML 1 ML VIAL IM PRN (18:03)
[2023-03-25] MEDS ORDERED: MAG HYDROX/AL HYDROX/SIMETH 30 ML CUP PO PRN (18:03)
[2023-03-25] MEDS ORDERED: MAGNESIUM HYDROXIDE 2,400 MG/30 ML CUP PO PRN (18:03)
[2023-03-25] MEDS: QUEtiapine 100 MG TAB PO SCH (20:09)
[2023-03-25] MEDS: hydrOXYzine pamoate 25 MG CAP PO PRN (21:07)
[2023-03-26 07:07] LABS: Basophils % (A) 0 %; Eosinophils # (A) 0.2 k/uL (0-0.7); Eosinophils % (A) 2 %; HCT 38.2 % (34.0-46.0); HGB 11.5 gm/dL (11.4-16.0); Hypochromasia Marked; Lymphocytes # (A) 2.8 k/uL (1.0-4.8); Lymphocytes % (A) 29 %; MCH 27.7 pg (25.0-35.0); MCHC 30.2 g/dL (31.0-37.0); MCV 91.7 fL (80.0-100.0); Mean Platelet Volume 8.6; Monocytes # (A) 0.5 k/uL (0-1.0); Monocytes % (A) 5 %; Neutrophils # (A) 6.1 k/uL (1.3-7.7); Neutrophils % (A) 63 %; Platelet Count 287 k/uL (150-450); RBC 4.16 m/uL (3.80-5.40); RDW 15.1 % (11.5-15.5); WBC 9.8 k/uL (3.8-10.6)
[2023-03-26 07:21] LABS: ALT 25 U/L (4-34); AST 19 U/L (14-36); African American GFR (CKD) >90 (>60 ml/min/1.73 sqM); Albumin 3.5 g/dL (3.5-5.0); Alkaline Phosphatase 60 U/L (38-126); Anion Gap 7 mmol/L; Blood Urea Nitrogen 10 mg/dL (7-17); Calcium 8.7 mg/dL (8.4-10.2); Carbon Dioxide 21 mmol/L (22-30); Chloride 111 mmol/L (98-107); Glucose 86 mg/dL (74-99); Non-African American GFR(CKD) 83 (>60 ml/min/1.73 sqM); Potassium 3.9 mmol/L (3.5-5.1); Sodium 139 mmol/L (137-145); Total Bilirubin 0.2 mg/dL (0.2-1.3); Total Protein 6.2 g/dL (6.3-8.2)
[2023-03-26] MEDS: TOPIRAMATE 25 MG TAB PO SCH (08:25)
[2023-03-26] MEDS: FERROUS SULFATE 325 MG TAB PO SCH (08:25)
[2023-03-26] MEDS ORDERED: CITALOPRAM HYDROBROMIDE 20 MG TAB PO SCH (09:00)
[2023-03-26] MEDS: hydrOXYzine pamoate 25 MG CAP PO PRN ×3 (09:17→20:44)
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
[2023-03-26] MEDS: busPIRone HCl 5 MG TAB PO SCH ×2 (12:51→17:51)
[2023-03-26] MEDS: buPROPion XL 150 MG TAB.ER.24H PO SCH (12:51)
[2023-03-26] MEDS: NICOTINE 14MG/24HR PATCH TRANSDERM SCH (12:51)
[2023-03-26 13:33] LABS: Chol/HDL Ratio 5.97 Ratio; LDL Cholesterol,Calculated 95.8 mg/dL (0.0-131.0)
--- NOTE | 2023-03-26 14:30 | P.MDCNMH ---
History of Present Illness H&P Date: 03/26/23 History of present illness; patient is a 32-year-old lady with past medical hist ory significant for depression, bipolar disorder who presented to the ER because of worsening depression. Patient also stated that she has been having suicidal thoughts. Denies any auditory or visual hallucinations. Denies any homicidal thoughts. Patient was worked up in the ER Initial lab work done in the ER showed WBC 9.8, hemoglobin 11.5, platelet count 287, sodium 139, potassium 3.9, BUN 10, crit at 0.91 Urine drug screen was negative UA was negative Patient was admitted to inpatient psych REVIEW OF SYSTEMS: CONSTITUTIONAL: No fever, no malaise, no fatigue. HEENT: No recent visual problems or hearing problems. Denied any sore throat. CARDIOVASCULAR: No chest pain, orthopnea, PND, no palpitations, no syncope. PULMONARY: No shortness of breath, no cough, no hemoptysis. GASTROINTESTINAL: No diarrhea, no nausea, no vomiting, no abdominal pain. NEUROLOGICAL: No headaches, no weakness, no numbness. HEMATOLOGICAL: Denies any bleeding or petechiae. GENITOURINARY: Denies any burning micturition, frequency, or urgency. MUSCULOSKELETAL/RHEUMATOLOGICAL: Denies any joint pain, swelling, or any muscle pain. ENDOCRINE: Denies any polyuria or polydipsia. The rest of the 14-point review of systems is negative. PHYSICAL EXAMINATION: GENERAL: The patient is alert and oriented x3, not in any acute distress. Well developed, well nourished. HEENT: Pupils are round and equally reacting to light. EOMI. No scleral icterus. No conjunctival pallor. Normocephalic, atraumatic. No pharyngeal erythema. No thyromegaly. CARDIOVASCULAR: S1 and S2 present. No murmurs, rubs, or gallops. PULMONARY: Chest is clear to auscultation, no wheezing or crackles. ABDOMEN: Soft, nontender, nondistended, normoactive bowel sounds. No palpable organomegaly. MUSCULOSKELETAL: No joint swelling or deformity. EXTREMITIES: No cyanosis, clubbing, or pedal edema. NEUROLOGICAL: Gross neurological examination did not reveal any focal deficits. SKIN: No rashes. Assessment and plan Suicidal ideation Major depression Bipolar disorder Diabetes mellitus Hyperlipidemia Monitor vital signs Elopement precautions Suicide precautions Patient on trulicity in outpatient settings, monitor blood sugar levels, Labs and medication were reviewed.. Continue same treatment. Continue with symptomatic treatment. Resume home medication. Monitor labs and vitals. DVT and GI prophylaxis. Further recommendations as per clinical course of the patient Past Medical History Past Medical History: GERD/Reflux, Sleep Apnea/CPAP/BIPAP Additional Past Medical History / Comment(s): iron defiency anemia, currently getting iron infusions History of Any Multi-Drug Resistant Organisms: None Reported Past Surgical History: Section, Cholecystectomy, Tubal Ligation Additional Past Surgical History / Comment(s): 2008 AND 2015 (c/s) and 2010 (cho lecyst) Past Anesthesia/Blood Transfusion Reactions: No Reported Reaction Past Psychological History: Anxiety, Bipolar, Depression Additional Psychological History / Comment(s): 06/21/19: Pt taking Celexa 5mg and Buspar 15mg daily Smoking Status: Current every day smoker Past Alcohol Use History: Occasional Additional Past Alcohol Use History / Comment(s): 04/29/21 - pt states she is trying to quit. states last nicotine was about 1 week ago. SHANIA MAJOR. Past Drug Use History: None Reported - Past Family History Mother Family Medical History: Asthma, COPD, Diabetes Mellitus, Hypertension Additional Family Medical History / Comment(s): depression, anxiety, sleep apnea, Father Family Medical History: Hypertension Additional Family Medical History / Comment(s): arthritis Medications and Allergies Home Medications Medication Instructions Recorded Confirmed Type Citalopram Hydrobromide [CeleXA] 40 mg PO DAILY 09/16/21 03/25/23 History QUEtiapine [SEROquel] 100 mg PO HS 09/16/21 03/25/23 History Topiramate [Topamax] 50 mg PO DAILY 09/16/21 03/25/23 History traZODone HCL [Desyrel] 50 mg PO HS 08/23/22 03/25/23 History Dulaglutide [Trulicity] 1.5 mg SQ FR 03/25/23 03/25/23 History Ergocalciferol [Vitamin D2 (1250 1,250 mcg PO WE 03/25/23 03/25/23 History Mcg = [id number] Iu)] Ferrous Sulfate [Feosol] 325 mg PO DAILY 03/25/23 03/25/23 History busPIRone HCl [Buspar] 5 mg PO BID@1100,1700 07/14/23 07/14/23 History Allergies Allergy/AdvReac Type Severity Reaction Status Date / Time latex Allergy Rash/Hives Verified 03/25/23 22:07 Physical Exam Vitals: Vital Signs Temp Pulse Pulse Resp BP BP Pulse Ox 03/26/23 07:13 97.5 F L 83 12 101/59 03/25/23 20:42 98.6 F 84 16 118/59 03/25/23 12:14 98.3 F 78 20 123/78 99 Intake and Output 03/25/23 03/26/23 03/26/23 22:59 06:59 14:59 Other: Weight 122.47 kg Cranial Nerve Examination - Cranial Nerves Cranial Nerve II- Optic: Intact (Cranial nerves II-12 intact) Cranial Nerve III- Oculomotor: Intact Cranial Nerve IV- Trochlear: Intact Cranial Nerve V- Trigeminal: Intact Cranial Nerve - Abducens: Intact Cranial Nerve VII- Facial: Intact Cranial Nerve VIII- Auditory: Intact Cranial Nerve IX- Glossopharyngeal: Intact Cranial Nerve X- Vagus: Intact Cranial Nerve XI- Accessory: Intact Cranial Nerve XII- Hypoglossal: Intact Results CBC & Chem 7: 03/26/23 06:45 03/26/23 06:45 Labs: Abnormal Lab Results - Last 24 Hours (Table) 03/25/23 03/26/23 03/26/23 Range/Units 14:25 06:45 06:45 MCHC 30.2 L (31.0-37.0) g/dL Chloride 111 H (98-107) mmol/L Carbon Dioxide 21 L (22-30) mmol/L Total Protein 6.2 L (6.3-8.2) g/dL Urine Appearance Cloudy H (Clear) Ur Squamous Epith Cells 8 H (0-4) /hpf Urine Mucus Rare H (None) /hpf
[2023-03-26] MEDS: QUEtiapine 100 MG TAB PO SCH (20:43)
[2023-03-26] MEDS: traZODone HCL 50 MG TAB PO SCH (20:43)
[2023-03-27 08:06] LABS: Glucose,Whole Blood 98 mg/dL (70-110)
[2023-03-27] MEDS: NICOTINE 14MG/24HR PATCH TRANSDERM SCH (08:38)
[2023-03-27] MEDS: TOPIRAMATE 25 MG TAB PO SCH (08:38)
[2023-03-27] MEDS: FERROUS SULFATE 325 MG TAB PO SCH (08:38)
[2023-03-27] MEDS: buPROPion XL 150 MG TAB.ER.24H PO SCH (08:38)
[2023-03-27] MEDS: hydrOXYzine pamoate 25 MG CAP PO PRN ×3 (08:40→20:54)
[2023-03-27] MEDS ORDERED: CITALOPRAM HYDROBROMIDE 20 MG TAB PO SCH (09:00)
[2023-03-27] MEDS: busPIRone HCl 5 MG TAB PO SCH ×2 (11:14→16:20)
[2023-03-27 12:52] LABS: Glucose,Whole Blood 83 mg/dL (70-110)
--- NOTE | 2023-03-27 13:01 | P.PN ---
Progress Note - Text Progress Note Date: 03/27/23 Interval History: Patient was seen bedside this morning. She states that she has been trying to distract herself with groups and reading. However she endorses having negative thoughts and feels that the distraction tools have been helpful. She was agreeable with being started on lithium and decreasing Celexa further today. She stated that she had some trouble staying asleep last night due to her roommate. She reports feeling anxious and discussed coping mechanisms. At this time patient denies any suicidal or homicidal ideations, intent or plan. Patient denies any auditory, visual hallucinations and denies any paranoia or delusions. Patient denies any side effects from the medications and has been compliant with meds. Mental Status Exam: General Appearance: Patient appears to be stated age is alert, directable, obese, and attempts to cooperate. Patient appears to have good hygiene and grooming. Wearing wig Behavior: Patient is seated without any agitated behavior. Speech: Patient's speech is fluent and nonpressured. Low volume Mood/Affect: Patient reports their mood is "alright", affect is depressed Suicidality/Homicidality: Patient denies having any homicidal ideation intent or plan. Denies overt suicidal ideation Perceptions: Patient denies any visual hallucinations and denies any auditory hallucinations Though content/process: There is no evidence of any delusional thought content and thought process is linear and goal-directed. Memory and concentration: AOX3, grossly intact for the purposes of this session. Can spell "WORLD" backwards Judgment and insight: Fair Vital Signs Temp 97.4 F L 03/27/23 10:12 Pulse 92 03/27/23 10:12 Resp 20 03/27/23 10:12 BP 134/80 03/27/23 10:12 Pulse Ox 99 03/25/23 12:14 FiO2 Intake & Output 03/26/23 03/27/23 03/27/23 18:59 06:59 18:59 Weight 72.206 kg Assessment Bipolar disorder with rapid cycling - consistent with atypical depression and history of likely manic episodes but patient has also been on antidepressant Generalized Anxiety Disorder Nicotine dependence PLAN: -Patient is admitted under voluntary status to [facility] for stabilization of psychiatric symptoms and safety. Patient signed adult voluntary form and me dication consent and is placed in patient's chart. -Medications: Decrease Celexa to 10 mg daily due to risk of worsening alondra Continue Seroquel 100 mg qHS for mood Start [place] 300 mg BID for mood stabilization Continue Wellbutrin 150 mg for depressed mood Continue Buspar 5 mg BID for anxiety Continue trazodone 50 mg qHS for sleep - Vistaril PRN for anxiety/agitation - NRT- patch -Patient was informed of the risks, benefits and side effects of the medication and patient verbally consented to taking the medications. Patient signed med consent form and was placed in chart. -Internal Medicine consult to perform medical evaluation and physical. -SW on board for discharge planning. Encourage patient to participate in groups to work on coping skills.
[2023-03-27 17:44] LABS: Glucose,Whole Blood 83 mg/dL (70-110)
[2023-03-27] MEDS: QUEtiapine 100 MG TAB PO SCH (20:53)
[2023-03-27] MEDS: traZODone HCL 50 MG TAB PO SCH (20:53)
[2023-03-27] MEDS: LITHIUM CARBONATE 300 MG CAP PO SCH (20:53)
[2023-03-28] MEDS: FERROUS SULFATE 325 MG TAB PO SCH (07:42)
[2023-03-28] MEDS: TOPIRAMATE 25 MG TAB PO SCH (07:42)
[2023-03-28] MEDS: LITHIUM CARBONATE 300 MG CAP PO SCH (07:42)
[2023-03-28] MEDS: buPROPion XL 150 MG TAB.ER.24H PO SCH (07:42)
[2023-03-28] MEDS: NICOTINE 14MG/24HR PATCH TRANSDERM SCH (07:42)
[2023-03-28 07:47] LABS: Glucose,Whole Blood 92 mg/dL (70-110)
[2023-03-28] MEDS: hydrOXYzine pamoate 25 MG CAP PO PRN (08:55)
[2023-03-28] MEDS ORDERED: CITALOPRAM HYDROBROMIDE 10 MG TAB PO SCH (09:00)
[2023-03-28] MEDS: busPIRone HCl 5 MG TAB PO SCH ×2 (11:02→16:03)
--- NOTE | 2023-03-28 11:14 | P.PN ---
Progress Note - Text Progress Note Date: 03/28/23 Interval History: Patient was seen attending group nd was directable and agreeable to speak with policy writer typist in the office. Currently, the patient is not reporting any suicidal or homicidal ideation, intention, and/or plan. She reports no auditory or visual hallucinations. She denies any paranoia or other delusions. The patient has been adherent with her medication and is not reporting any significant side effects at this time. The patient acknowledges that she is having difficulty with sleep and has been having significant symptoms of PTSD including hypervigilance and reexperiencing phenomenon.. Mental Status Exam: General Appearance: Patient appears to be stated age is alert, directable, and cooperative. Behavior: Patient is calmly seated without any agitated behavior. Speech: Patient's speech is fluent and nonpressured. Mood/Affect: Mood is improving mildly, affect is congruent and constricted. Suicidality/Homicidality: Patient denies having any suicidal or homicidal ideation intent or plan. Perceptions: Patient denies any visual hallucinations and denies any auditory hallucinations Though content/process: There is no evidence of any delusional thought content and thought process is linear and goal-directed. Memory and concentration: AOX3, grossly intact for the purposes of this session Judgment and insight: Improving mildly Vital Signs Temp 97 F L 03/28/23 06:35 Pulse 76 03/28/23 06:35 Resp 14 03/28/23 06:35 BP 93/48 03/28/23 06:35 Pulse Ox 99 03/25/23 12:14 FiO2 Intake & Output 03/27/23 03/28/23 03/28/23 18:59 06:59 18:59 Weight 72.206 kg Laboratory Results - Last 24 Hours 03/27/23 03/27/23 03/28/23 12:51 17:42 07:41 POC Glucose (mg/dL) 83 83 92 POC Glu Agricultural Engineering Technician ID Samreen Alvarez Nicole Gibbs, Desiree Assessment Bipolar disorder with rapid cycling antidepressant Generalized Anxiety Disorder PTSD Nicotine dependence Plan: -Patient continues to meet criteria for inpatient psychiatric admission for symptom stabilization and safety. Patient has signed adult voluntary form and medication consent and was placed in patient's chart. -Medications: Discontinue Celexa Continue Seroquel 100 mg qHS for mood Increase lithium to 450 mg ER twice a day for mood stabilization Continue Wellbutrin 150 mg for depressed mood Continue Buspar 5 mg BID for anxiety Continue trazodone 50 mg qHS for sleep -When necessary Vistaril for agitation/aggression. -NRT - nicotine patch -SW on board for discharge planning. Encouraged the patient to participate in milieu.
[2023-03-28] MEDS: LORazepam 1 MG TAB PO PRN ×2 (16:03→22:59)
[2023-03-28] MEDS: traZODone HCL 50 MG TAB PO SCH (21:00)
[2023-03-28] MEDS: LITHIUM CARBONATE 150 MG CAP PO SCH (21:00)
[2023-03-28] MEDS: QUEtiapine 100 MG TAB PO SCH (21:00)
[2023-03-29] MEDS: FERROUS SULFATE 325 MG TAB PO SCH (08:14)
[2023-03-29] MEDS: TOPIRAMATE 25 MG TAB PO SCH (08:14)
[2023-03-29] MEDS: LITHIUM CARBONATE 150 MG CAP PO SCH ×2 (08:14→20:01)
[2023-03-29] MEDS: NICOTINE 14MG/24HR PATCH TRANSDERM SCH (08:14)
[2023-03-29] MEDS: buPROPion XL 150 MG TAB.ER.24H PO SCH (08:16)
[2023-03-29] MEDS: LORazepam 1 MG TAB PO PRN ×2 (08:17→16:47)
[2023-03-29] MEDS: busPIRone HCl 5 MG TAB PO SCH ×2 (11:15→16:47)
[2023-03-29 11:24] LABS: African American GFR (CKD) 88 (>60 ml/min/1.73 sqM); Anion Gap 10 mmol/L; Blood Urea Nitrogen 10 mg/dL (7-17); Calcium 9.7 mg/dL (8.4-10.2); Carbon Dioxide 21 mmol/L (22-30); Chloride 109 mmol/L (98-107); Glucose 76 mg/dL (74-99); Lithium 0.8 mmol/L; Non-African American GFR(CKD) 76 (>60 ml/min/1.73 sqM); Potassium 4.5 mmol/L (3.5-5.1); Sodium 140 mmol/L (137-145)
--- NOTE | 2023-03-29 11:33 | P.PN ---
Progress Note - Text Progress Note Date: 03/29/23 Interval History: Patient was seen attending group nd was directable and agreeable to speak with personal lines underwriter in the office. Currently, the patient is not reporting any suicidal or homicidal ideation, intention, and/or plan. She reports no auditory or visual hallucinations. She denies any paranoia or other delusions. The patient has been adherent with her medication and is not reporting any significant side effects at this time. The patient is reporting significant improvement in regards to her target symptoms. She reports no issues regarding her sleep or her appetite. Individual and milieu activities. Mental Status Exam: General Appearance: Patient appears to be stated age is alert, directable, and cooperative. Behavior: Patient is calmly seated without any agitated behavior. Speech: Patient's speech is fluent and nonpressured. Mood/Affect: Mood is improving mildly, affect is congruent and constricted. Suicidality/Homicidality: Patient denies having any suicidal or homicidal ideation intent or plan. Perceptions: Patient denies any visual hallucinations and denies any auditory hallucinations Though content/process: There is no evidence of any delusional thought content and thought process is linear and goal-directed. Memory and concentration: AOX3, grossly intact for the purposes of this session Judgment and insight: Improving mildly Vital Signs Temp 97.4 F L 03/29/23 07:00 Pulse 80 03/29/23 07:00 Resp 17 03/29/23 07:00 BP 96/50 03/29/23 07:00 Pulse Ox 98 03/29/23 07:00 FiO2 Laboratory Results - Last 24 Hours 03/29/23 10:47 Sodium 140 Potassium 4.5 Chloride 109 H Carbon Dioxide 21 L Anion Gap 10 BUN 10 Creatinine 0.98 Est GFR (CKD-EPI)AfAm 88 Est GFR (CKD-EPI)NonAf 76 Glucose 76 Calcium 9.7 [place] 0.8 Assessment Bipolar disorder with rapid cycling antidepressant Generalized Anxiety Disorder PTSD Nicotine dependence Plan: -Patient continues to meet criteria for inpatient psychiatric admission for symptom stabilization and safety. Patient has signed adult voluntary form and medication consent and was placed in patient's chart. -Medications: Continue Seroquel 100 mg qHS for mood Continue lithium 450 mg ER twice a day for mood stabilization. BMP and lithium level to be drawn today. Continue Wellbutrin 150 mg for depressed mood Continue Buspar 5 mg BID for anxiety Continue trazodone 50 mg qHS for sleep -When necessary Ativan for agitation/aggression. -NRT - nicotine patch -SW on board for discharge planning. Encouraged the patient to participate in milieu.
[2023-03-29] MEDS: QUEtiapine 100 MG TAB PO SCH (20:01)
[2023-03-29] MEDS: traZODone HCL 50 MG TAB PO SCH (20:01)
[2023-03-30] MEDS: LORazepam 1 MG TAB PO PRN ×2 (00:07→08:39)
[2023-03-30 06:59] VITALS: BP 143/82; PULSE 67; RESP 14; TEMP 97.7
[2023-03-30] MEDS: LITHIUM CARBONATE 150 MG CAP PO SCH (08:04)
[2023-03-30] MEDS: buPROPion XL 150 MG TAB.ER.24H PO SCH (08:04)
[2023-03-30] MEDS: FERROUS SULFATE 325 MG TAB PO SCH (08:04)
[2023-03-30] MEDS: NICOTINE 14MG/24HR PATCH TRANSDERM SCH (08:04)
[2023-03-30] MEDS: TOPIRAMATE 25 MG TAB PO SCH (08:04)
[2023-03-30] MEDS ORDERED: ERGOCALCIFEROL 1,250 MCG (50,000 IU) CAPSULE PO SCH (09:00)
--- NOTE | 2023-03-30 11:39 | P.DS ---
Providers Date of admission: 03/25/23 17:24 Expected date of discharge: 03/30/23 Attending physician: Frankie Pimentel MD Consults: 03/25/23 18:03 Consult Physician Routine Consulting Provider: Justin Molina Consult Reason/Comments: medical management Do you want consulting provider notified?: Yes Primary care physician: Justin Molina - Discharge Diagnosis(es) (1) Bipolar disorder, rapid cycling Current Visit: Yes Status: Acute Priority: High (2) Generalized anxiety disorder Current Visit: Yes Status: Chronic Priority: Medium (3) PTSD (post-traumatic stress disorder) Current Visit: Yes Status: Chronic Priority: Medium (4) Nicotine dependence Current Visit: Yes Status: Chronic Priority: Low Hospital Course: Admission HPI: Initial psychiatric evaluation was completed by Dr. Henderson on 03/26/2023 who wrote: Patient is an employed, 32-year-old female who is presenting with suicidal ideation with plan HPI: Patient presented to the ED for suicidal ideation with plan to run into traffic and be hit by a car. She says she has been considering this non-stop. She states that when she is near a body of water, she considers jumping and driving herself. She has been concerned that she is going to act on these and therefore brought herself in for treatment. Patient is admitted voluntarily on the psychiatric unit. [place] says that she has been feeling severely depressed for the past 3 months. She says she began feeling depressed in her teen years. She reports anhedonia where "nothing I do makes me happy", lack of motivation, neurovegetative symptoms including trouble completing daily activities, poor energy, poor concentration, and hypersomnia into daytime with trouble staying asleep at night. She says she either eats too much or too little. She reports a past dx of bipolar. She states she has periods of up to 1-2 weeks of "good" or irritable mood, increased energy levels, increased self-esteem, sleeping 1-6 hours at most, doing impulsive things such as quitting work, spending lots of money, and having sexual indiscretions. She says these manic episodes occur every 3 months and started when she was 19 years old after having her first child. Geneva also reports racing thoughts that are difficult to interrupt. She often finds herself worrying about many things which causes her to have difficulty with relaxing and endorses feeling on edge. On risk assessment, patient endorses suicidal ideation with plan. She denies homicidal ideation. She denies auditory and visual hallucinations, as asked and assessed. She denies access to guns. UDS was negative of all substances Hospital course: Upon admission to the unit patient was initially presenting as depressed with a decrease in functioning and suicidal ideation. Patient was however directable and agreeable to commence treatment. Patient got along well with other patients on the unit and followed unit protocol. Patient was compliant with the medications and denied any side effects throughout hospital course. Patient was started on her home medications of Seroquel, BuSpar, and trazodone. Celexa was tapered due to concerns for worsening alondra. She was started on Wellbutrin for depressed mood. Patient spoke of her stressors and engaged in therapy both group and individual. Patient was also seen by medical team for history and physical exam. Chebanse was added to her regimen to address bipolar symptoms. The patient's Celexa was tapered and discontinued. On this medication regimen, the patient displayed significant improvement in regards her target symptoms of depression, suicidal ideation, and hypomanic symptoms. On the day of discharge, the patient is not reporting any suicidal or homicidal ideation, intention, and/or plan. Access to firearms or weapons. She reports no auditory or visual hallucinations. She denies any paranoia or other delusions. She expresses a strong desire to live for herself and for her family. She is looking forward to seeing her children. The patient does not have a significant history of substance abuse however was counseled at great length on abstaining from all substances including alcohol, tobacco, marijuana, and all illicit drugs. The patient was adherent with her medications and reported no significant side effects. She denies any medical issues or concerns and reports no chest pain, she has breath, palpitations, akathisia, or tardive dyskinesia. The patient was counseled at length on the points of medication adherence and appropriate o utpatient follow-up. As the patient no longer met criteria for continued inpatient psychiatric hospitalization, she was subsequently discharged after appropriate safety planning. Mental status exam: General Appearance: Patient appears to be stated age is alert, pleasant, and cooperative. Patient is in no acute distress and has fair hygiene and grooming Behavior: Patient is calmly seated without any agitated behavior. Speech: Patient's speech is fluent and nonpressured. Mood/Affect: Patient reports their mood is "much better", affect is congruent and euthymic to bright. Suicidality/Homicidality: Patient denies having any suicidal or homicidal ideation intent or plan. Perceptions: Patient denies any auditory or visual hallucinations. Though content/process: There is no evidence of any delusional thought content and thought process is linear and goal-directed. She is future and goal oriented. Memory and concentration: AOX3, grossly intact for the purposes of this session. Can spell "WORLD" backwards correctly. Judgment and insight: Improved Impression: Bipolar disorder with rapid cycling Generalized Anxiety Disorder PTSD Nicotine dependence Plan: -Continue with discharge today as patient has improved and stabilized psychiatrically and is not currently an imminent threat to herself and/or others. Patient has numerous protective factors including high level of baseli ne functioning as well as her duty to her family. -Continue medications: BuSpar 5 mg by mouth twice a day for anxiety Trazodone 50 mg by mouth at bedtime for insomnia Chebanse 450 mg by mouth twice a day for mood stabilization Seroquel 100 mg daily at bedtime for mood stabilization Wellbutrin 150 mg by mouth daily for depression -Patient was counseled on the need for medication compliance and appropriate follow-up at mental health and also primary care for medical issues. Patient verbalized understanding and agreed. -Social work to arrange for and conduct family meeting to ensure safety upon discharge and answer any questions/concerns. Social work also to arrange for patients follow up appointments with [facility] for psychiatric care along with follow up with primary care provider. -Patient counseled on abstaining from recreational drugs and marijuana and alcohol. Was informed/educated on the adverse effects on their physical and mental health. Patient verbally agreed and understood. -Patient was instructed to return to the hospital or seek immediate medical care if their psychiatric or medical symptoms do worsen or reoccur. -Psychoeducation and supportive therapy provided to patient. Risks and benefits of pharmacological treatment versus the risks and benefits of nontreatment weighed and discussed. Informed consent discussion held. Common side effects of psychotropics discussed such as, but not limited to headache, GI disturbance, sexual dysfunction, movement disorders, sedation, and orthostatic hypotension. Life threatening and blackbox warnings of prescribed medications also discussed. Potential risks of operating a vehicle or heavy machinery discussed with patient at length. Advised on importance of compliance and a reliable and responsible manner. Patient advised to review FDA consumer labeling of all medications prior to taking. Patient verbalized understanding of potential risks, and agrees with current treatment plan. Patient advised to medically contact physician/emergency personnel if any acute changes in condition occur. Vital Signs Temp 97.7 F 03/30/23 06:36 Pulse 67 03/30/23 06:36 Resp 14 03/30/23 06:36 BP 143/82 03/30/23 06:36 Pulse Ox 98 03/29/23 07:00 FiO2 Laboratory Results WBC 9.8 k/uL (3.8-10.6) 03/26/23 06:45 RBC 4.16 m/uL (3.80-5.40) 03/26/23 06:45 Hgb 11.5 gm/dL (11.4-16.0) 03/26/23 06:45 Hct 38.2 % (34.0-46.0) 03/26/23 06:45 MCV 91.7 fL (80.0-100.0) 03/26/23 06:45 MCH 27.7 pg (25.0-35.0) 03/26/23 06:45 MCHC 30.2 g/dL (31.0-37.0) L 03/26/23 06:45 RDW 15.1 % (11.5-15.5) 03/26/23 06:45 Plt Count 287 k/uL (150-450) 03/26/23 06:45 MPV 8.6 03/26/23 06:45 Neutrophils % 63 % 03/26/23 06:45 Lymphocytes % 29 % 03/26/23 06:45 Monocytes % 5 % 03/26/23 06:45 Eosinophils % 2 % 03/26/23 06:45 Basophils % 0 % 03/26/23 06:45 Neutrophils # 6.1 k/uL (1.3-7.7) 03/26/23 06:45 Lymphocytes # 2.8 k/uL (1.0-4.8) 03/26/23 06:45 Monocytes # 0.5 k/uL (0-1.0) 03/26/23 06:45 Eosinophils # 0.2 k/uL (0-0.7) 03/26/23 06:45 Basophils # 0.0 k/uL (0-0.2) 03/26/23 06:45 Hypochromasia Marked 03/26/23 06:45 Sodium 140 mmol/L (137-145) 03/29/23 10:47 Potassium 4.5 mmol/L (3.5-5.1) 03/29/23 10:47 Chloride 109 mmol/L (98-107) H 03/29/23 10:47 Carbon Dioxide 21 mmol/L (22-30) L 03/29/23 10:47 Anion Gap 10 mmol/L 03/29/23 10:47 BUN 10 mg/dL (7-17) 03/29/23 10:47 Creatinine 0.98 mg/dL (0.52-1.04) 03/29/23 10:47 Est GFR (CKD-EPI)AfAm 88 (>60 ml/min/1.73 sqM) 03/29/23 10:47 Est GFR (CKD-EPI)NonAf 76 (>60 ml/min/1.73 sqM) 03/29/23 10:47 Glucose 76 mg/dL (74-99) 03/29/23 10:47 POC Glucose (mg/dL) 92 mg/dL (70-110) 03/28/23 07:41 POC Glu [employer] Tutor ID Cynthia Taylor 03/28/23 07:[address] Glu mg/dL 100 mg/dL 03/26/23 06:45 Hemoglobin A1c 5.1 % (<=6.0) 03/26/23 06:45 Calcium 9.7 mg/dL (8.4-10.2) 03/29/23 10:47 Total Bilirubin 0.2 mg/dL (0.2-1.3) 03/26/23 06:45 AST 19 U/L (14-36) 03/26/23 06:45 ALT 25 U/L (4-34) 03/26/23 06:45 Alkaline Phosphatase 60 U/L (38-126) 03/26/23 06:45 Total Protein 6.2 g/dL (6.3-8.2) L 03/26/23 06:45 Albumin 3.5 g/dL (3.5-5.0) 03/26/23 06:45 Triglycerides 162.00 mg/dL (0.00-149.00) H 03/26/23 06:45 Cholesterol 154.00 mg/dL (0.00-200.00) 03/26/23 06:45 LDL Cholesterol, Calc 95.8 mg/dL (0.0-131.0) 03/26/23 06:45 VLDL Cholesterol, Calc 32.40 mg/dL (5.00-40.00) 03/26/23 06:45 HDL Cholesterol 25.80 mg/dL (40.00-60.00) L 03/26/23 06:45 Cholesterol/HDL Ratio 5.97 Ratio 03/26/23 06:45 TSH 1.740 mIU/L (0.465-4.680) 03/26/23 06:45 Urine Color Yellow 03/25/23 14:25 Urine Appearance Cloudy (Clear) H 03/25/23 14:25 Urine pH 7.5 (5.0-8.0) 03/25/23 14:25 Ur Specific [place] 1.014 (1.001-1.035) 03/25/23 14:25 Urine Protein Negative (Negative) 03/25/23 14:25 Urine Glucose (UA) Negative (Negative) 03/25/23 14:25 Urine Ketones Negative (Negative) 03/25/23 14:25 Urine Blood Negative (Negative) 03/25/23 14:25 Urine Nitrite Negative (Negative) 03/25/23 14:25 Urine Bilirubin Negative (Negative) 03/25/23 14:25 Urine Urobilinogen <2.0 mg/dL (<2.0) 03/25/23 14:25 Ur Leukocyte Esterase Negative (Negative) 03/25/23 14:25 Urine RBC 3 /hpf (0-5) 03/25/23 14:25 Urine WBC <1 /hpf (0-5) 03/25/23 14:25 Ur Squamous Epith Cells 8 /hpf (0-4) H 03/25/23 14:25 Urine Mucus Rare /hpf (None) H 03/25/23 14:25 Urine HCG, Qual Not Detected (Not Detectd) 03/25/23 14:27 Urine Opiates Screen Not Detected (NotDetected) 03/25/23 14:16 Ur Oxycodone Screen Not Detected (NotDetected) 03/25/23 14:16 Urine Methadone Screen Not Detected (NotDetected) 03/25/23 14:16 Ur Propoxyphene Screen Not Detected (NotDetected) 03/25/23 14:16 Ur Barbiturates Screen Not Detected (NotDetected) 03/25/23 14:16 U Tricyclic Antidepress Not Detected (NotDetected) 03/25/23 14:16 Ur Phencyclidine Scrn Not Detected (NotDetected) 03/25/23 14:16 Ur Amphetamines Screen Not Detected (NotDetected) 03/25/23 14:16 U Methamphetamines Scrn Not Detected (NotDetected) 03/25/23 14:16 U Benzodiazepines Scrn Not Detected (NotDetected) 03/25/23 14:16 Chebanse 0.8 mmol/L 03/29/23 10:47 Urine Cocaine Screen Not Detected (NotDetected) 03/25/23 14:16 U Marijuana (THC) Screen Not Detected (NotDetected) 03/25/23 14:16 Coronavirus (PCR) Not Detected (Not Detectd) 03/25/23 14:42 Allergies Allergy/AdvReac Type Severity Reaction Status Date / Time latex Allergy Rash/Hives Verified 03/25/23 22:07 Patient Condition at Discharge: Stable Plan - Discharge Summary Discharge Rx Participant: Yes New Discharge Prescriptions: New busPIRone HCl [Buspar] 5 mg PO BID@1100,1700 30 Days #60 tab traZODone HCL [Desyrel] 50 mg PO HS 30 Days #30 tab [place] Carbonate 450 mg PO BID 15 Days #80 cap QUEtiapine [SEROquel] 100 mg PO HS 30 Days #30 tab buPROPion XL [Wellbutrin XL] 150 mg PO DAILY 30 Days #30 tab Continue Topiramate [Topamax] 50 mg PO DAILY Ferrous Sulfate [Iron (65 MG Elemental)] 325 mg PO DAILY Ergocalciferol [Vitamin D2 (1250 Mcg = 25123 Iu)] 1,250 mcg PO WE Dulaglutide [Trulicity] 1.5 mg SQ FR Discontinued QUEtiapine [SEROquel] 100 mg PO HS Citalopram Hydrobromide [CeleXA] 40 mg PO DAILY traZODone HCL [Desyrel] 50 mg PO HS busPIRone HCl [Buspar] 5 mg PO BID@1100,1700 Discharge Medication List Topiramate [Topamax] 50 mg PO DAILY 09/16/21 [History] Dulaglutide [Trulicity] 1.5 mg SQ FR 03/25/23 [History] Ergocalciferol [Vitamin D2 (1250 Mcg = 45815 Iu)] 1,250 mcg PO WE 03/25/23 [History] Ferrous Sulfate [Iron (65 MG Elemental)] 325 mg PO DAILY 03/25/23 [History] Chebanse Carbonate 450 mg PO BID 15 Days #80 cap 03/30/23 [Rx] QUEtiapine [SEROquel] 100 mg PO HS 30 Days #30 tab 03/30/23 [Rx] buPROPion XL [Wellbutrin XL] 150 mg PO DAILY 30 Days #30 tab 03/30/23 [Rx] busPIRone HCl [Buspar] 5 mg PO BID@1100,1700 30 Days #60 tab 03/30/23 [Rx] traZODone HCL [Desyrel] 50 mg PO HS 30 Days #30 tab 03/30/23 [Rx] Follow up Appointment(s)/Referral(s): other,other [Other] - 03/30/23 3:[address] [facility] [Outside] - 03/30/23 3:30 pm (Intake) Justin Molina MD [Primary Care Provider] - 1-2 days Patient Instructions/Handouts: Bipolar Disorder (DC), Generalized Anxiety Disorder (GEN) Activity/Diet/Wound Care/Special Instructions: Avoid the use of street drugs and alcohol. Take all medications as prescribed. When you are in need of refills on your medications, please contact your medical provider and/or outpatient psychiatrist to have this done. Please go to scheduled outpatient appointments for aftercare treatment. If symptoms return or become worse, call the crisis line at and/or go to the nearest emergency room for evaluation. Discharge Disposition: HOME SELF-CARE
[2023-04-01] MEDS ORDERED: NON FORMULARY DRUG (Dulaglutide [Trulicity] 1.5 MG/0.5 ML Each) SQ SCH (09:00)
== END 2023-03-30 11:24 | disposition home or self-care (01) | DRG 753 ==
LOC: EC 12:00 → 3MHU 17:24
PROVIDERS: ADMIT Psychiatry & Neurology Psychiatry; ATTEND Psychiatry & Neurology Psychiatry
DX: F31.89 Other bipolar disorder (principal); F17.210 Nicotine dependence, cigarettes, uncomplicated; F41.1 Generalized anxiety disorder; F43.10 Post-traumatic stress disorder, unspecified; K21.9 Gastro-esophageal reflux disease without esophagitis; G47.00 Insomnia, unspecified; F41.9 Anxiety disorder, unspecified; R45.851 Suicidal ideations; Z79.899 Other long term (current) drug therapy; Z81.8 Family history of other mental and behavioral disorders; Z20.822 Contact with and (suspected) exposure to COVID-19; Z91.040 Latex allergy status
CPT/HCPCS: 36415; 80048; 80053; 80061; 80178; 80306; 81001; 81025; 82075; 83036; 84443; 85025; 87635; 99285

== ENCOUNTER → 2023-09-19 | Outpatient (CLI) | payer OTHER ==
[2023-09-19 11:08] VITALS: BP 135/94; PULSE 98; TEMP 98.3; BMI 48.6
--- NOTE | 2023-11-02 09:19 | P.HPBAR ---
Bariatric H&P - History & Physicial H&P Date: 09/19/23 History & Physicial: Visit/CC: new patient Patient initial contact: Initial weight: 107.955 kg Initial weight in pounds: 238.00 Height: 5 ft 3 in Initial BMI: 42.1 Last weight: Current weight: 124.738 kg Current weight in pounds: 275.00 Current BMI: 48.6 [place] body weight (based on NIH guidelines): 52.163 kg Excess body weight loss: The patient is a 33 year-old F who presents for Bariatric Assessment. this is a 33-year-old female who is on long-term problems obesity. Her BMI is 49. She is requesting sleeve gastrectomy. Patient has an excellent understanding of sleeve gastrectomy. She understands the risks of this procedure including gastric injury, staple disruption bleeding scarring and perforation. Past Medical History Past Medical History: GERD/Reflux, Sleep Apnea/CPAP/BIPAP Additional Past Medical History / Comment(s): iron defiency anemia, currently getting iron infusions History of Any Multi-Drug Resistant Organisms: None Reported Past Surgical History: Section, Cholecystectomy, Tubal Ligation, Uterine Ablation Additional Past Surgical History / Comment(s): 2008 AND 2015 (c/s) and 2010 (cholecyst) Past Anesthesia/Blood Transfusion Reactions: No Reported Reaction Past Psychological History: Anxiety, Bipolar, Depression Additional Psychological History / Comment(s): 06/21/19: Pt taking Celexa 5mg and Buspar 15mg daily Smoking Status: Former smoker, Vaper Past Alcohol Use History: Occasional Additional Past Alcohol Use History / Comment(s): Pt. states she quit smoking cigarettes but she does vape. Past Drug Use History: None Reported - Past Family History Mother Family Medical History: Asthma, COPD, Diabetes Mellitus, Hypertension Additional Family Medical History / Comment(s): depression, anxiety, sleep apnea, Father Family Medical History: Hypertension Additional Family Medical History / Comment(s): arthritis Surgical - Exam Vital Signs Temp Pulse BP 98.3 F 98 135/94 09/19/23 10:50 09/19/23 10:50 09/19/23 10:50 - General well developed, well nourished, no distress - Eyes PERRL - ENT normal pinna - Neck no masses - Respiratory normal expansion - Cardiovascular Rhythm: regular - Abdomen Abdomen: soft, non tender Bariatric Assessment & Plan Plan: Morbid obesity. Patient will be scheduled for EGD. We will attempt to obtain insurance authorization for sleeve gastrectomy. Bariatric Checklist Checklist: Plan: Checklist: EGD: 1. Hiatal hernia: 2. H. Pylori: HgbA1c: Vitamin D: Smoking: Current every day smoker Primary care physician referral: Tracy Psychiatry clearance: Cardiology clearance: Sleep study: Diet journal: VTE risk score: VTE risk level: Rehab needs at discharge:
== END ==
LOC: BARWHC3 10:04
PROVIDERS: ATTEND Surgery
DX: E66.01 Morbid (severe) obesity due to excess calories (principal); F31.9 Bipolar disorder, unspecified; F17.200 Nicotine dependence, unspecified, uncomplicated; Z98.84 Bariatric surgery status; Z90.49 Acquired absence of other specified parts of digestive tract; Z91.040 Latex allergy status
CPT/HCPCS: 99211

== ENCOUNTER 2023-10-17 08:11 | Day surgery (SDC) | payer BC, OTHER ==
[2023-10-17] MEDS: LACTATED RINGERS 1,000 ML IV SCH ×2 (08:35→09:02)
[2023-10-17] MEDS ORDERED: LIDOCAINE 1% INJ 10MG/ML (20 ML MDV) ONE (09:03)
[2023-10-17] MEDS ORDERED: PROPOFOL 10 MG/ML 20 ML VIAL IV ONE (09:03)
--- NOTE | 2023-10-17 09:04 | P.GSHP ---
History of Present Illness H&P Date: 10/17/23 Chief Complaint: Gerd, morbid obesity Is a 33-year-old female whose had complaints of gerd. Her BMI is 52. Patient is undergoing workup for possible bariatric surgery. Patient is hide gerd symptoms. Past Medical History Past Medical History: GERD/Reflux, Sleep Apnea/CPAP/BIPAP Additional Past Medical History / Comment(s): iron defiency anemia, currently getting iron infusions, no cpap used History of Any Multi-Drug Resistant Organisms: None Reported Past Surgical History: Section, Cholecystectomy, Tubal Ligation, Uterine Ablation Additional Past Surgical History / Comment(s): 2008 AND 2015 (c/s) and 2010 (cholecyst) Past Anesthesia/Blood Transfusion Reactions: No Reported Reaction Past Psychological History: Anxiety, Bipolar, Depression Additional Psychological History / Comment(s): 06/21/19: Pt taking Celexa 5mg and Buspar 15mg daily Smoking Status: Former smoker, Vaper Past Alcohol Use History: Occasional Additional Past Alcohol Use History / Comment(s): Pt. states she quit smoking cigarettes but she does vape. Past Drug Use History: None Reported - Past Family History Mother Family Medical History: Asthma, COPD, Diabetes Mellitus, Hypertension Additional Family Medical History / Comment(s): depression, anxiety, sleep apnea, Father Family Medical History: Hypertension Additional Family Medical History / Comment(s): arthritis Medications and Allergies Home Medications Medication Instructions Recorded Confirmed Type Ergocalciferol [Vitamin D2 (1250 1,250 mcg PO WE 03/25/23 10/12/23 History Mcg = 65279 Iu)] QUEtiapine [SEROquel] 100 mg PO HS 30 Days #30 tab 03/30/23 10/12/23 Rx buPROPion XL [Wellbutrin XL] 150 mg PO DAILY 30 Days #30 tab 03/30/23 10/12/23 Rx busPIRone HCl [Buspar] 5 mg PO BID@1100,1700 30 Days #60 03/30/23 10/12/23 Rx tab traZODone HCL [Desyrel] 50 mg PO HS 30 Days #30 tab 03/30/23 10/12/23 Rx March Arb Carbonate 450 mg PO HS 09/19/23 10/12/23 History Ferrous Sulfate [Feosol] 325 mg PO DAILY 10/12/23 10/12/23 History Levothyroxine Sodium 1 tab PO DAILY 10/17/23 10/17/23 History Allergies Allergy/AdvReac Type Severity Reaction Status Date / Time latex Allergy Rash/Hives Verified 10/12/23 13:08 Surgical - Exam Vital Signs Temp Pulse Resp BP Pulse Ox 97 F L 90 18 114/78 99 10/17/23 08:35 10/17/23 08:35 10/17/23 08:35 10/17/23 08:35 10/17/23 08:35 - General well developed, well nourished, no distress - Eyes PERRL - ENT normal pinna - Neck no masses - Respiratory normal expansion - Cardiovascular Rhythm: regular - Abdomen Abdomen: soft, non tender Assessment and Plan Assessment: Gerd, morbid obese. Will perform EGD.
--- NOTE | 2023-10-17 09:17 | P.OP ---
Date of Procedure: 10/17/23 Preoperative Diagnosis: Gerd Morbid obesity Postoperative Diagnosis: Antral gastritis Procedure(s) Performed: EGD Anesthesia: MAC Surgeon: Rogelio Liu Pathology: other (Antrum) Condition: stable Disposition: PACU Description of Procedure: Patient was placed on the endoscopy table in the lateral position. She received IV sedation. The gas was placed oropharynx specimen esophagus into the stomach. Scope was then placed through the pylorus. The first and second portion of the duodenum appeared normal. Scope was then repacked the antrum and this appeared mildly inflamed. A biopsy was performed. The scope was then retroflexed and remainder of the stomach appeared normal. The GE junction was at 40 cm. The distal esophagus appeared normal. The proximal esophagus appeared normal. Scope was withdrawn for the patient.
[2023-10-17 09:19] VITALS: TEMP 97
[2023-10-17 09:47] VITALS: BP 111/76; PULSE 77; RESP 16
== END 2023-10-17 09:50 | disposition home or self-care (01) ==
LOC: ORWHC2ENDO 08:11
PROVIDERS: ATTEND Surgery
DX: K29.50 Unspecified chronic gastritis without bleeding (principal); K21.9 Gastro-esophageal reflux disease without esophagitis; E66.01 Morbid (severe) obesity due to excess calories; G47.33 Obstructive sleep apnea (adult) (pediatric); D50.9 Iron deficiency anemia, unspecified; F32.A Depression, unspecified; F41.9 Anxiety disorder, unspecified; E07.9 Disorder of thyroid, unspecified; F10.90 Alcohol use, unspecified, uncomplicated; Z83.3 Family history of diabetes mellitus; Z68.43 Body mass index [BMI] 50.0-59.9, adult; Z82.49 Family history of ischemic heart disease and other diseases of the circulatory system; Z98.890 Other specified postprocedural states; Z98.51 Tubal ligation status; Z82.61 Family history of arthritis; Z87.891 Personal history of nicotine dependence; Z79.890 Hormone replacement therapy; Z91.040 Latex allergy status; Z90.49 Acquired absence of other specified parts of digestive tract
CPT/HCPCS: 81025; 43239; J2001; J2704; 88305

== ENCOUNTER → 2023-10-24 | Outpatient (CLI) | payer OTHER ==
[2023-10-24 12:05] VITALS: BP 124/87; PULSE 98; TEMP 98.3; BMI 49.7
--- NOTE | 2023-10-25 09:24 | P.HPBAR ---
Bariatric H&P - History & Physicial H&P Date: 10/24/23 History & Physicial: Visit/CC: EGD F/U Patient initial contact: Initial weight: 107.955 kg Initial weight in pounds: 238.00 Height: 5 ft 3 in Initial BMI: 42.1 Last weight: Current weight: 127.459 kg Current weight in pounds: 281.00 Current BMI: 49.7 [place] body weight (based on NIH guidelines): 52.163 kg Excess body weight loss: The patient is a 33 year-old F who presents for Bariatric Assessment. Patient presents today for preoperative consultation. She is gained 3 pounds her last visit. She underwent recent EGD. Spin to have some mild gastritis. Her BMI is 50. Past Medical History Past Medical History: GERD/Reflux, Sleep Apnea/CPAP/BIPAP Additional Past Medical History / Comment(s): iron defiency anemia, currently getting iron infusions, no cpap used History of Any Multi-Drug Resistant Organisms: None Reported Past Surgical History: Section, Cholecystectomy, Tubal Ligation, Uterine Ablation Additional Past Surgical History / Comment(s): 2008 AND 2015 (c/s) and 2010 (cholecyst) Past Anesthesia/Blood Transfusion Reactions: No Reported Reaction Past Psychological History: Anxiety, Bipolar, Depression Additional Psychological History / Comment(s): 06/21/19: Pt taking Celexa 5mg an d Buspar 15mg daily Smoking Status: Former smoker, Vaper Past Alcohol Use History: Occasional Additional Past Alcohol Use History / Comment(s): Pt. states she quit smoking cigarettes but she does vape. Past Drug Use History: None Reported - Past Family History Mother Family Medical History: Asthma, COPD, Diabetes Mellitus, Hypertension Additional Family Medical History / Comment(s): depression, anxiety, sleep apnea, Father Family Medical History: Hypertension Additional Family Medical History / Comment(s): arthritis Surgical - Exam Vital Signs Temp Pulse BP 98.3 F 98 124/87 10/24/23 11:51 10/24/23 11:51 10/24/23 11:51 - General well developed, well nourished, no distress - Eyes PERRL - ENT normal pinna - Neck no masses - Respiratory normal expansion - Cardiovascular Rhythm: regular - Abdomen Abdomen: soft, non tender Bariatric Assessment & Plan Plan: More obesity, BMI of 50. Patient will be scheduled for sleeve gastrectomy once her authorization has been completed. Bariatric Checklist Checklist: Plan: Checklist: EGD: 1. Hiatal hernia: 2. H. Pylori: HgbA1c: Vitamin D: Smoking: Current every day smoker Primary care physician referral: Tracy Psychiatry clearance: Cardiology clearance: Sleep study: Diet journal: VTE risk score: VTE risk level: Rehab needs at discharge:
== END ==
LOC: BARWHC3 10:26
PROVIDERS: ATTEND Surgery
DX: K21.9 Gastro-esophageal reflux disease without esophagitis (principal); E66.01 Morbid (severe) obesity due to excess calories; G47.30 Sleep apnea, unspecified; F17.290 Nicotine dependence, other tobacco product, uncomplicated; F41.9 Anxiety disorder, unspecified; F31.9 Bipolar disorder, unspecified; Z86.2 Personal history of diseases of the blood and blood-forming organs and certain disorders involving the immune mechanism; Z98.51 Tubal ligation status; Z91.040 Latex allergy status; Z68.42 Body mass index [BMI] 45.0-49.9, adult
CPT/HCPCS: 99211

== ENCOUNTER → 2023-12-01 | Outpatient (CLI) | payer OTHER ==
[2023-12-01 18:40] LABS: Basophils # (A) 0.07 X 10*3/uL (0.00-0.10); Basophils % (A) 0.5 %; Eosinophils # (A) 0.22 X 10*3/uL (0.04-0.35); Eosinophils % (A) 1.5 %; HCT 39.7 % (37.2-46.3); HGB 12.2 g/dL (12.0-15.0); Lymphocytes # (A) 3.08 X 10*3/uL (0.90-5.00); Lymphocytes % (A) 21.3 %; MCH 26.5 pg (27.0-32.0); MCHC 30.7 g/dL (32.0-37.0); MCV 86.3 FL (80.0-97.0); Mean Platelet Volume 11.2 FL (9.5-12.2); Monocytes % (A) 4.8 %; NRBC Per 100 WBC 0 X 10*3/uL (0.00-0.01); Neutrophils # (A) 10.31 X 10*3/uL (1.80-7.70); Neutrophils % (A) 71.4 %; Platelet Count 396 X 10*3/uL (140-440); RDW 17.3 % (11.5-14.5); WBC 14.45 X 10*3/uL (4.50-10.00)
[2023-12-01 18:50] LABS: ALT 27 U/L (8-44); AST 22 U/L (13-35); Albumin 3.8 g/dL (3.8-4.9); Albumin/Globulin Ratio 1.73 Ratio (1.60-3.17); Alkaline Phosphatase 63 U/L (41-126); BUN/Creat Ratio 10.38 Ratio (12.00-20.00); Blood Urea Nitrogen 8.3 mg/dL (9.0-27.0); Calcium 9.4 mg/dL (8.7-10.3); Carbon Dioxide 25.3 mmol/L (21.6-31.8); Chloride 108 mmol/L (96-109); Globulin 2.2 g/dL (1.6-3.3); Glucose 96 mg/dL (70-110); Potassium 4.2 mmol/L (3.5-5.5); Sodium 143 mmol/L (135-145); Total Bilirubin <0.2 mg/dL (0.3-1.2)
== END | disposition home or self-care (01) ==
LOC: LABWHC1 12:46
PROVIDERS: ATTEND Surgery
DX: Z01.812 Encounter for preprocedural laboratory examination (principal)
CPT/HCPCS: 36415; 80053; 85025; 93005

== ENCOUNTER 2023-12-20 07:30 | Inpatient (IN) | payer OTHER ==
[2023-12-16 09:20] VITALS: BMI 50.8
[~2023-12-20 07:30] MED LIST changes: +HYDROmorphone 0.5 MG/0.5 ML SYRINGE IVP PRN; -LACTATED RINGERS 1,000 ML IV SCH
[2023-12-20] MEDS: LACTATED RINGERS 1,000 ML IV ONE ×2 (10:10→12:35)
[2023-12-20] MEDS: LIDOCAINE 1%-EPI 1:100,000 20 ML VIAL SQ ONE ×2 (10:33→11:53)
[2023-12-20] MEDS: ENOXAPARIN 40 MG/0.4 ML SYRINGE SQ PRN (10:39)
[2023-12-20] MEDS: DEXAMETHASONE SOD PHOSPHATE 4 MG/ML 1 ML VIAL IV ONE ×2 (10:39→14:56)
[2023-12-20] MEDS: ONDANSETRON 4 MG/2 ML VIAL IVP ONE ×2 (10:39→14:57)
[2023-12-20] MEDS: MIDAZOLAM 2 MG/2 ML VIAL IVP ONE (10:52)
--- NOTE | 2023-12-20 11:02 | P.GSHP ---
History of Present Illness H&P Date: 12/20/23 Chief Complaint: morbid obesity this is a 33-year-old female who's had lifetime problems obesity. Her BMI is 51. Patient presents today for sleeve gastrectomy. Patient is aware the risks of surgery including conversion to the open procedure injury to the stomach liver spleen and issues of gastric staple line such as bleeding perforation or obstruction. Past Medical History Past Medical History: GERD/Reflux, Sleep Apnea/CPAP/BIPAP Additional Past Medical History / Comment(s): iron defiency anemia, no cpap used History of Any Multi-Drug Resistant Organisms: None Reported Past Surgical History: Section, Cholecystectomy, Tubal Ligation, Uterine Ablation Additional Past Surgical History / Comment(s): 2008 AND 2015 (c/s) and 2010 (cholecyst), EGD, uterine ablation 11/2022 Past Anesthesia/Blood Transfusion Reactions: No Reported Reaction Smoking Status: Former smoker, Vaper - Past Family History Mother Family Medical History: Asthma, COPD, Diabetes Mellitus, Hypertension Additional Family Medical History / Comment(s): depression, anxiety, sleep apnea, Father Family Medical History: Hypertension Additional Family Medical History / Comment(s): arthritis Medications and Allergies Home Medications Medication Instructions Recorded Confirmed Type Ergocalciferol [Vitamin D2 (1250 1,250 mcg PO WE 03/25/23 12/20/23 History Mcg = 43923 Iu)] QUEtiapine [SEROquel] 100 mg PO HS 30 Days #30 tab 03/30/23 12/20/23 Rx buPROPion XL [Wellbutrin XL] 150 mg PO DAILY 30 Days #30 tab 03/30/23 12/20/23 Rx busPIRone HCl [Buspar] 5 mg PO BID@1100,1700 30 Days #60 03/30/23 12/20/23 Rx tab traZODone HCL [Desyrel] 50 mg PO HS 30 Days #30 tab 03/30/23 12/20/23 Rx [place] Carbonate 450 mg PO HS 09/19/23 12/20/23 History Ferrous Sulfate [Feosol] 325 mg PO DAILY 10/12/23 12/20/23 History Levothyroxine Sodium 1 tab PO DAILY 10/17/23 12/20/23 History Allergies Allergy/AdvReac Type Severity Reaction Status Date / Time latex Allergy Rash/Hives Verified 12/20/23 10:17 Surgical - Exam Vital Signs Temp Pulse Resp BP Pulse Ox 97.7 F 81 16 124/74 94 L 12/20/23 10:21 12/20/23 10:21 12/20/23 10:21 12/20/23 10:21 12/20/23 10:21 BMI 51 - General well developed, well nourished, no distress - Eyes PERRL - ENT normal pinna - Neck no masses - Respiratory normal expansion - Cardiovascular Rhythm: regular - Abdomen Abdomen: soft, non tender Assessment and Plan Assessment: morbid obesity. Patient be sundergo sleeve gastrectomy.
[2023-12-20] MEDS: ceFAZolin 3 GM in SODIUM CHLORIDE 0.9% 100 ML IVPB PRN (11:53)
[2023-12-20] MEDS ORDERED: HYOSCYAMINE ORAL DROPS 1.875 MG/15 ML BOTTLE PO PRN (12:40)
[2023-12-20] MEDS ORDERED: ACETAMINOPHEN ORAL SUSP 160 MG/5 ML CUP PO PRN (12:40)
[2023-12-20] MEDS ORDERED: NALOXONE 0.4 MG/ML 1 ML VIAL IV PRN (12:40)
--- NOTE | 2023-12-20 12:40 | P.OP ---
Date of Procedure: 12/20/23 Preoperative Diagnosis: morbid obesity, BMI 51 Postoperative Diagnosis: morbid obesity, BMI 51 Procedure(s) Performed: laparoscopic sleeve gastrectomy Anesthesia: JEROME Surgeon: Rogelio Liu Estimated Blood Loss (ml): 10 Pathology: other (stomach) Condition: stable Disposition: PACU Description of Procedure: The patient was placed on the operating room table in the supine position. She received general anesthesia and then was placed in dorsal lithotomy position. Her abdomen was prepped and draped in sterile fashion. The skin incision sites were anesthetized 1% local Xylocaine. And then the skin was incised with an 11 blade in the left lateral position. Using a blade less trocar under direct visualization the peritoneal cavity was entered. The abdomen was insufflated and then a 5 mm laparoscope was placed into the peritoneal cavity. A 5 mm trocar was placed in the right epigastric, and right lateral position. A 15 mm trocar was placed in the supra-umbilical position and another 5 mm trocar was placed in the left lateral position. The left lateral lobe of the liver was retracted. The stomach was visualized. The greater curvature of the stomach was then dissected using the Harmonic scissors. The dissection occurred approximately 5 cm from the pylorus to the level of the left freda. There was no hiatal hernia seen. At this point a 40-Upper Sorbian bougie dilator was placed the oropharynx and passed into the esophagus and into the stomach by the PARADI OPERATOR. The sleeve gastrectomy was performed by using the powered echelon stapler with a seam guard buttress material. Sequential firings of the stapler were performed. The gastric remnant was then brought out through the 15 mm trocar site. The dilator was withdrawn. And a orogastric tube was replaced into the stomach. The stomach was insufflated with 200 mL of methylene blue normal saline. There was no evidence of extravasation. The abdomen was irrigated there is no bleeding seen. The Juan-Angie device was used to close the 15 mm trocar with 0 Vicryl. Skin was closed with interrupted 3-0 Monocryl sutures once the trochars withdrawn. Dermabond dressing was applied. Patient was sent to recovery in stable condition.
[2023-12-20] MEDS: HYDROmorphone 0.5 MG/0.5 ML SYRINGE IVP PRN (13:22)
[2023-12-20] MEDS: ACETAMINOPHEN IV (For NPO) 1,000 MG in EMPTY BAG 1 BAG IVPB ONE (13:49)
[2023-12-20] MEDS: LACTATED RINGERS 1,000 ML IV SCH ×2 (14:55→14:56)
[2023-12-20] MEDS: SIMETHICONE 80 MG CHEWABLE PO PRN (15:44)
[2023-12-20] MEDS: 0.9% NACL WITH KCL 20 MEQ/L 1,000 ML IV SCH (15:45)
[2023-12-20] MEDS: ALBUTEROL NEBULIZED 2.5 MG/3 ML INHALATION SCH (16:24)
[2023-12-20] MEDS: KETOROLAC 15 MG/ML 1 ML VIAL IVP SCH (17:36)
[2023-12-20] MEDS: ONDANSETRON 4 MG/2 ML VIAL IVP PRN (21:10)
[2023-12-20] MEDS: HYDROmorphone 1 MG/ML 1 ML SYRINGE IVP PRN (21:10)
[2023-12-20] MEDS: ceFAZolin 3 GM in SODIUM CHLORIDE 0.9% 100 ML IVPB SCH (21:58)
[2023-12-20] MEDS ORDERED: ENOXAPARIN 40 MG/0.4 ML SYRINGE SQ SCH (23:00)
[2023-12-20] MEDS: DEXAMETHASONE SOD PHOSPHATE 4 MG/ML 1 ML VIAL IVP SCH (23:59)
[2023-12-21] MEDS: ENOXAPARIN 60 MG/0.6 ML SYRINGE SQ SCH
[2023-12-21] MEDS: diphenhydrAMINE 50 MG/ML 1 ML VIAL IVP PRN (00:06)
[2023-12-21] MEDS: HYDROmorphone 0.5 MG/0.5 ML SYRINGE IVP PRN (01:38)
[2023-12-21] MEDS: PANTOPRAZOLE 40 MG/10 ML VIAL IV SCH (08:55)
[2023-12-21 11:18] LABS: Basophils # (A) 0.03 X 10*3/uL (0.00-0.10); Basophils % (A) 0.2 %; Eosinophils # (A) 0 X 10*3/uL (0.04-0.35); Eosinophils % (A) 0 %; HCT 36.5 % (37.2-46.3); HGB 11.1 g/dL (12.0-15.0); Lymphocytes # (A) 1.14 X 10*3/uL (0.90-5.00); Lymphocytes % (A) 6.7 %; MCH 26.4 pg (27.0-32.0); MCHC 30.4 g/dL (32.0-37.0); MCV 86.7 FL (80.0-97.0); Mean Platelet Volume 11.3 FL (9.5-12.2); Monocytes # (A) 0.24 X 10*3/uL (0.20-1.00); Monocytes % (A) 1.4 %; NRBC Per 100 WBC 0 X 10*3/uL (0.00-0.01); Neutrophils # (A) 15.62 X 10*3/uL (1.80-7.70); Neutrophils % (A) 91.3 %; Platelet Count 319 X 10*3/uL (140-440); RBC 4.21 X 10*6/uL (4.10-5.20); RDW 16.8 % (11.5-14.5); WBC 17.09 X 10*3/uL (4.50-10.00)
[2023-12-21 11:41] LABS: Blood Urea Nitrogen 5.2 mg/dL (9.0-27.0); Calcium 8.9 mg/dL (8.7-10.3); Carbon Dioxide 21.9 mmol/L (21.6-31.8); Chloride 109 mmol/L (96-109); Phosphorus 3.3 mg/dL (2.4-5.1); Potassium 4.6 mmol/L (3.5-5.5); Sodium 140 mmol/L (135-145)
[2023-12-21] MEDS: HYDROcodone/APAP 15 ML SOLUTION PO PRN (14:56)
--- NOTE | 2023-12-21 15:33 | P.PN ---
Subjective Progress Note Date: 12/21/23 CHIEF COMPLAINT: Morbid Obesity HISTORY OF PRESENT ILLNESS: Postop day #1 status post laparoscopic sleeve gastrectomy. Patient complaining of dysphagia. She reports that the liquids sip in the center of the chest. And then eventually she can feel the move down. She has had nausea and dry heaves and belching. She has been up and ambulating. Denies any flatus. Denies any difficulty urinating. Afebrile. WBC 17 but patient has been receiving Decadron hemoglobin 11.1 PHYSICAL EXAM: VITAL SIGNS: Reviewed. GENERAL: Well-developed in no acute distress. ABDOMEN: Soft. Nondistended. Incision sites clean dry and intact NEUROLOGIC: Alert and oriented. Cranial nerves II through XII grossly intact. ASSESSMENT: 1. Morbid obesity status post laparoscopic sleeve gastrectomy 2. Leukocytosis likely related to the Decadron PLAN: -Continue Decadron scheduled for likely postoperative edema -Encourage patient to go slow with her liquids with small sips. -Encourage patient to increase activity and ambulate every hour -Encourage patient to use incentive spirometer -Continue pain management -Continue IV fluids -Continue bariatric clears -DVT prophylaxis Lovenox Physician Pneumatic Tube Fitter note has been reviewed by physician. Signing provider agrees with the documented findings, assessment, and plan of care. Objective - Vital Signs Vital signs: Vital Signs Temp 98.2 F 12/21/23 07:55 Pulse 80 12/21/23 09:10 Resp 14 12/21/23 01:20 BP 145/83 12/21/23 07:55 Pulse Ox 97 12/21/23 09:02 FiO2 Intake & Output 12/20/23 12/21/23 12/21/23 18:59 06:59 18:59 Intake Total 1300 118 Output Total 305 500 Balance 995 -500 118 Weight 126.2 kg 126.2 kg Intake: IV 1300 Oral 118 Output: Urine 300 500 Estimated Blood Loss 5 Other: Voiding Method Toilet # Voids 3 1 - Labs CBC & Chem 7: 12/21/23 05:57 12/21/23 05:57 Labs: Abnormal Lab Results - Last 24 Hours (Table) 12/21/23 12/21/23 Range/Units 05:57 05:57 WBC 17.09 H (4.50-10.00) X 10*3/uL Hgb 11.1 L (12.0-15.0) g/dL Hct 36.5 L (37.2-46.3) % MCH 26.4 L (27.0-32.0) pg MCHC 30.4 L (32.0-37.0) g/dL RDW 16.8 H (11.5-14.5) % Immature Gran # 0.06 H (0.00-0.04) X 10*3/uL Neutrophils # 15.62 H (1.80-7.70) X 10*3/uL Eosinophils # 0 L (0.04-0.35) X 10*3/uL BUN 5.2 L (9.0-27.0) mg/dL
--- NOTE | 2023-12-21 21:54 | CONS ---
CONSULTATION HISTORY OF PRESENT ILLNESS: A 33-year-old white female, status post gastric surgery per Dr. Liu. Continuing on her home medications for irritable bowel syndrome, GERD. She has a history of asthma. She is on Decadron IV. She is saturating 97% on room air. She is complaining of a lot of pressure in her upper chest, air pressure. PHYSICAL EXAMINATION: VITAL SIGNS: Temperature 98.2, pulse 101, blood pressure 140s over 80s. LUNGS: Mild wheeze. CARDIOVASCULAR: S1, S2. ABDOMEN: Soft. HEMATOLOGY: Negative Homans. PSYCH: Fair mood and affect. LABORATORY DATA: White count is 17.09, hemoglobin is 11.1, repeat her blood counts. Continue breathing treatments p.r.n. for her asthma. Lovenox subcu, acetaminophen, IBS medicine. Pain control. Prognosis guarded. MMODL / MARLENAN: [id number] /
[2023-12-22 08:54] LABS: Basophils # (A) 0.01 X 10*3/uL (0.00-0.10); Basophils % (A) 0.1 %; Eosinophils # (A) 0 X 10*3/uL (0.04-0.35); Eosinophils % (A) 0 %; HGB 10.7 g/dL (12.0-15.0); Lymphocytes # (A) 1.88 X 10*3/uL (0.90-5.00); Lymphocytes % (A) 10.6 %; MCH 26.4 pg (27.0-32.0); MCHC 30.6 g/dL (32.0-37.0); MCV 86.4 FL (80.0-97.0); Mean Platelet Volume 11.5 FL (9.5-12.2); Monocytes # (A) 0.37 X 10*3/uL (0.20-1.00); Monocytes % (A) 2.1 %; NRBC Per 100 WBC 0 X 10*3/uL (0.00-0.01); Neutrophils # (A) 15.46 X 10*3/uL (1.80-7.70); Neutrophils % (A) 86.8 %; Platelet Count 332 X 10*3/uL (140-440); RBC 4.05 X 10*6/uL (4.10-5.20); RDW 16.7 % (11.5-14.5)
[2023-12-22 09:04] LABS: ALT 64 U/L (8-44); AST 32 U/L (13-35); Albumin 3.7 g/dL (3.8-4.9); Albumin/Globulin Ratio 1.54 Ratio (1.60-3.17); Alkaline Phosphatase 62 U/L (41-126); BUN/Creat Ratio 12.86 Ratio (12.00-20.00); Calcium 9.2 mg/dL (8.7-10.3); Carbon Dioxide 21.8 mmol/L (21.6-31.8); Chloride 108 mmol/L (96-109); Globulin 2.4 g/dL (1.6-3.3); Glucose 134 mg/dL (70-110); Potassium 4.5 mmol/L (3.5-5.5); Sodium 141 mmol/L (135-145); Total Bilirubin <0.2 mg/dL (0.3-1.2); Total Protein 6.1 g/dL (6.2-8.2)
[2023-12-22 14:21] VITALS: RESP 16
--- NOTE | 2023-12-22 15:35 | P.DS ---
Providers Date of admission: 12/20/23 09:35 Expected date of discharge: 12/22/23 Attending physician: Rogelio Liu Consults: 12/20/23 12:40 Consult Physician Routine Consulting Provider: Justin Molina Reason/Comments: medical management Do you want consulting provider notified?: Yes Primary care physician: Justin Molina [facility] Course: Discharge diagnosis 1. Morbid obesity 2. Leukocytosis Hospital course This is a 33-year-old female with history of morbid obesity. She is status post laparoscopic sleeve gastrectomy. Patient tolerated surgery well. Pain is controlled. She is tolerating diet. She is having flatus. She is afebrile. Patient discharged with antibiotics due to leukocytosis. Patient did have some mild bradycardia with laying down. Ambulating heart rate at 75. Patient is stable for discharge. Please refer to chart for any further details. Physician Masonry Instructor note has been reviewed by physician. Signing provider agrees with the documented findings, assessment, and plan of care. Patient Condition at Discharge: Stable Plan - Discharge Summary Discharge Rx Participant: Yes New Discharge Prescriptions: New bisacodyL [Dulcolax] 5 mg PO DAILY PRN #10 tab PRN Reason: Constipation Simethicone 40 mg/0.6 ml Drops [Mylicon Drops] 40 mg PO PCHS PRN #30 ml PRN Reason: Gas Omeprazole [PriLOSEC] 40 mg PO DAILY #90 cap Ondansetron Odt [Zofran Odt] 4 mg PO Q8HR PRN #9 tab PRN Reason: Nausea HYDROcodone/APAP 5-325MG [[place] 5-325] 1 tab PO Q6HR PRN 3 Days #12 tab PRN Reason: Pain Continue busPIRone HCl [Buspar] 5 mg PO BID@1100,1700 30 Days #60 tab traZODone HCL [Desyrel] 50 mg PO HS 30 Days #30 tab Levothyroxine Sodium 1 tab PO DAILY QUEtiapine [SEROquel] 100 mg PO HS 30 Days #30 tab buPROPion XL [Wellbutrin XL] 150 mg PO DAILY 30 Days #30 tab [place] Carbonate 450 mg PO HS No Action Ergocalciferol [Vitamin D2 (1250 Mcg = 41597 Iu)] 1,250 mcg PO WE Ferrous Sulfate [Feosol] 325 mg PO DAILY Discharge Medication List Ergocalciferol [Vitamin D2 (1250 Mcg = 49069 Iu)] 1,250 mcg PO WE 03/25/23 [History] QUEtiapine [SEROquel] 100 mg PO HS 30 Days #30 tab 03/30/23 [Rx] buPROPion XL [Wellbutrin XL] 150 mg PO DAILY 30 Days #30 tab 03/30/23 [Rx] busPIRone HCl [Buspar] 5 mg PO BID@1100,1700 30 Days #60 tab 03/30/23 [Rx] traZODone HCL [Desyrel] 50 mg PO HS 30 Days #30 tab 03/30/23 [Rx] [place] Carbonate 450 mg PO HS 09/19/23 [History] Ferrous Sulfate [Feosol] 325 mg PO DAILY 10/12/23 [History] Levothyroxine Sodium 1 tab PO DAILY 10/17/23 [History] HYDROcodone/APAP 5-325MG [[place] 5-325] 1 tab PO Q6HR PRN 3 Days #12 tab 12/22/23 [Rx] Omeprazole [PriLOSEC] 40 mg PO DAILY #90 cap 12/22/23 [Rx] Ondansetron Odt [Zofran Odt] 4 mg PO Q8HR PRN #9 tab 12/22/23 [Rx] Simethicone 40 mg/0.6 ml Drops [Mylicon Drops] 40 mg PO PCHS PRN #30 ml 12/22/23 [Rx] bisacodyL [Dulcolax] 5 mg PO DAILY PRN #10 tab 12/22/23 [Rx] [place](s[place] 1 Week Activity/Diet/Wound Care/Special Instructions: No driving while taking [place] No lifting over 10 pounds You may shower. No soaking or tub baths for 2 weeks Very light activity until you are reevaluated at your follow up appointment with your surgeon No straws or carbonated beverages Hold on taking vitamin D and iron supplement until seen by surgeon Discharge Disposition: HOME SELF-CARE
[2023-12-22 17:00] VITALS: BP 165/85; PULSE 45; TEMP 98.3
== END 2023-12-22 16:42 | disposition home or self-care (01) | DRG 403 ==
LOC: 2ORMAIN 09:35 → 4SSUR 13:18
PROVIDERS: ADMIT Surgery; ATTEND Surgery
PROC: 0DB64Z3 Excision of Stomach, Percutaneous Endoscopic Approach, Vertical (ICD-10-PCS; principal; 2023-12-20 10:45)
DX: E66.01 Morbid (severe) obesity due to excess calories (principal); J45.909 Unspecified asthma, uncomplicated; D72.829 Elevated white blood cell count, unspecified; K21.9 Gastro-esophageal reflux disease without esophagitis; K58.9 Irritable bowel syndrome, unspecified; R13.10 Dysphagia, unspecified; T38.0X5A Adverse effect of glucocorticoids and synthetic analogues, initial encounter; Z68.43 Body mass index [BMI] 50.0-59.9, adult; Z79.899 Other long term (current) drug therapy; Z87.891 Personal history of nicotine dependence; Z71.3 Dietary counseling and surveillance; Z91.040 Latex allergy status
CPT/HCPCS: 80051; 80053; 81025; 82310; 82565; 83735; 84100; 84520; 85025; 88307; 93005; 94640; 94760

== ENCOUNTER → 2023-12-23 | Outpatient (CLI) | payer OTHER ==
[2023-12-23 12:15] VITALS: BP 141/61; PULSE 56; RESP 14; TEMP 98.9; BMI 49.5
== END ==
LOC: BARWHC3 10:19
PROVIDERS: ATTEND Surgery
DX: E66.01 Morbid (severe) obesity due to excess calories (principal); Z53.9 Procedure and treatment not carried out, unspecified reason
CPT/HCPCS: 99211

== ENCOUNTER → 2023-12-28 | Outpatient (CLI) | payer OTHER ==
[~2023-12-28] MED LIST changes: -HYDROmorphone 0.5 MG/0.5 ML SYRINGE IVP PRN; +SODIUM CHLORIDE 0.9% 500 ML 500 ML in EMPTY BAG 1 BAG IV PRN
[2023-12-28] MEDS: SODIUM CHLORIDE 0.9% 2,000 ML IV ONE (12:54)
[2023-12-28 13:25] VITALS: BP 130/77; PULSE 118; RESP 16; TEMP 98.9
== END ==
LOC: PROCWHC3 12:22
PROVIDERS: ATTEND Surgery
DX: E86.0 Dehydration (principal)
CPT/HCPCS: 96360; 96361

== ENCOUNTER → 2024-01-02 | Outpatient (CLI) | payer OTHER ==
[2024-01-02 11:23] VITALS: BMI 47.5
[2024-01-02 13:40] VITALS: BP 109/78; PULSE 60; RESP 14; TEMP 98
== END ==
LOC: BARWHC3 09:45
PROVIDERS: ATTEND Surgery
DX: E66.01 Morbid (severe) obesity due to excess calories (principal); F17.200 Nicotine dependence, unspecified, uncomplicated; Z71.3 Dietary counseling and surveillance; Z91.040 Latex allergy status; Z68.42 Body mass index [BMI] 45.0-49.9, adult
CPT/HCPCS: 97802; G0463; 99211

== ENCOUNTER 2024-01-14 23:24 | Emergency (ER) | payer OTHER ==
[2024-01-15 00:15] VITALS: TEMP 98.5
[2024-01-15] MEDS: ONDANSETRON 4 MG/2 ML VIAL IVP STA (01:00)
[2024-01-15] MEDS: SODIUM CHLORIDE 0.9% 1,000 ML IV ONE ×2 (01:01→02:11)
[2024-01-15 01:30] LABS: Basophils # (A) 0.1 k/uL (0-0.2); Basophils % (A) 1 %; Eosinophils # (A) 0.2 k/uL (0-0.7); Eosinophils % (A) 2 %; HCT 43.2 % (34.0-46.0); HGB 13.2 gm/dL (11.4-16.0); Lymphocytes # (A) 2.8 k/uL (1.0-4.8); Lymphocytes % (A) 27 %; MCH 26.3 pg (25.0-35.0); MCHC 30.6 g/dL (31.0-37.0); MCV 85.8 fL (80.0-100.0); Monocytes # (A) 0.6 k/uL (0-1.0); Monocytes % (A) 6 %; Neutrophils # (A) 6.5 k/uL (1.3-7.7); Neutrophils % (A) 63 %; Platelet Count 285 k/uL (150-450); RBC 5.03 m/uL (3.80-5.40); RDW 15.8 % (11.5-15.5); WBC 10.5 k/uL (3.8-10.6)
[2024-01-15 01:51] LABS: ALT 141 U/L (4-34); AST 82 U/L (14-36); African American GFR (CKD) >90 (>60 ml/min/1.73 sqM); Albumin 4.3 g/dL (3.5-5.0); Alkaline Phosphatase 107 U/L (38-126); Anion Gap 14 mmol/L; Blood Urea Nitrogen 10 mg/dL (7-17); Calcium 9.8 mg/dL (8.4-10.2); Carbon Dioxide 18 mmol/L (22-30); Chloride 106 mmol/L (98-107); Glucose 93 mg/dL (74-99); Non-African American GFR(CKD) >90 (>60 ml/min/1.73 sqM); Potassium 4.3 mmol/L (3.5-5.1); Sodium 138 mmol/L (137-145); Total Bilirubin 0.6 mg/dL (0.2-1.3); Total Protein 7.6 g/dL (6.3-8.2)
[2024-01-15] MEDS: METOCLOPRAMIDE 5 MG/ML 2 ML VIAL IVP STA (02:11)
[2024-01-15] MEDS: MORPHINE SULFATE 4 MG/ML SYRINGE IV STA (02:14)
[2024-01-15 02:43] VITALS: BP 100/67; PULSE 94; RESP 19
--- NOTE | 2024-01-15 02:43 | ED ---
Nausea/Vomiting/Diarrhea HPI - General Chief complaint: Nausea/Vomiting/Diarrhea Stated complaint: post op , vomiting Time Seen by Provider: 01/15/24 00:42 Source: patient Mode of arrival: ambulatory Limitations: no limitations - History of Present Illness Initial comments: This patient is a 33-year-old woman who is here to have evaluation for persisten t nausea and vomiting as well as upper abdominal pain that has been going on for 2 days. She states she is not only keeping fluids down well. The patient did have bariatric surgery December 19. She had been doing relatively well until a couple of days ago. The patient not having fever or chills. She does continue to pass flatus and having small bowel movement. MD complaint: nausea, vomiting, abdominal pain Onset/Timin -: days(s) Description of Vomiting: watery Associated Abdominal Pain: Yes Location: LUQ, RUQ, epigastric Radiation: none Severity: moderate Quality: cramping, aching Consistency: constant Improves with: none Worsens with: eating Context: recent surgery/procedure Associated Symptoms: nausea/vomiting - Related Data Home Medications Medication Instructions Recorded Confirmed Levothyroxine Sodium 88 mcg PO DAILY 10/17/23 01/23/24 Budesonide/Formoterol Fumarate 2 puff INHALATION RT-BID 01/23/24 01/23/24 [Symbicort 160-4.5 Mcg Inhaler] [place] Carbonate ER [Lithobid] 900 mg PO HS 01/23/24 01/23/24 Tiotropium 2.5 Mcg/Puff [Spiriva 2 puff INHALATION RT-DAILY 01/23/24 01/23/24 Respimat 2.5 Mcg] Topiramate [Topamax] 50 mg PO HS 01/23/24 01/23/24 busPIRone HCl [Buspar] 10 mg PO BID 01/23/24 01/23/24 traZODone HCL [Desyrel] 100 mg PO HS PRN 01/23/24 01/23/24 Previous Rx's Medication Instructions Recorded QUEtiapine [SEROquel] 100 mg PO HS 30 Days #30 tab 03/30/23 buPROPion XL [Wellbutrin XL] 150 mg PO DAILY 30 Days #30 tab 03/30/23 Omeprazole [PriLOSEC] 40 mg PO DAILY #90 cap 12/22/23 Ondansetron Odt [Zofran Odt] 4 mg PO Q8HR PRN #9 tab 12/22/23 Allergies Allergy/AdvReac Type Severity Reaction Status Date / Time latex Allergy Rash/Hives Verified 01/23/24 07:40 Review of Systems ROS Statement: Those systems with pertinent positive or pertinent negative responses have been documented in the HPI. ROS Other: All systems not noted in ROS Statement are negative. Constitutional: Denies: fever, chills, weakness Respiratory: Denies: cough, dyspnea Cardiovascular: Denies: chest pain, palpitations Gastrointestinal: Reports: abdominal pain, nausea, vomiting. Denies: diarrhea, constipation, hematemesis, melena, hematochezia Genitourinary: Denies: dysuria, hematuria Musculoskeletal: Denies: back pain Skin: Denies: rash Neurological: Denies: headache, weakness Past Medical History Past Medical History: GERD/Reflux, Sleep Apnea/CPAP/BIPAP Additional Past Medical History / Comment(s): iron defiency anemia, currently getting iron infusions, no cpap used History of Any Multi-Drug Resistant Organisms: None Reported Past Surgical History: Section, Cholecystectomy, Tubal Ligation, Uterine Ablation Additional Past Surgical History / Comment(s): 2008 AND 2015 (c/s) and 2010 (cholecyst) Past Anesthesia/Blood Transfusion Reactions: No Reported Reaction Past Psychological History: Anxiety, Bipolar, Depression Smoking Status: Former smoker Past Alcohol Use History: Occasional Past Drug Use History: None Reported - Past Family History Mother Family Medical History: Asthma, COPD, Diabetes Mellitus, Hypertension Additional Family Medical History / Comment(s): depression, anxiety, sleep apnea, Father Family Medical History: Hypertension Additional Family Medical History / Comment(s): arthritis General Exam Limitations: no limitations General appearance: alert, in no apparent distress Head exam: Present: atraumatic, normocephalic Eye exam: Present: normal appearance. Absent: scleral icterus, conjunctival injection ENT exam: Present: normal oropharynx Neck exam: Present: normal inspection Respiratory exam: Present: normal lung sounds bilaterally. Absent: respiratory distress, wheezes, rales, rhonchi, stridor Cardiovascular Exam: Present: regular rate, normal rhythm, normal heart sounds. Absent: systolic murmur, diastolic murmur, rubs, gallop GI/Abdominal exam: Present: soft. Absent: distended, tenderness, guarding, rebound, rigid, mass, pulsatile mass, hernia Extremities exam: Present: normal inspection, normal capillary refill. Absent: pedal edema, calf tenderness Back exam: Present: normal inspection. Absent: CVA tenderness (R), CVA tenderness (L) Neurological exam: Present: alert Skin exam: Present: warm, dry, intact, normal color. Absent: rash Course Vital Signs 01/14/24 01/15/24 01/15/24 23:33 01:02 02:14 Temperature 98.5 F Pulse Rate 77 90 86 Respiratory 18 20 22 Rate Blood Pressure 134/88 105/73 109/77 O2 Sat by Pulse 97 98 100 Oximetry 01/15/24 02:39 Temperature Pulse Rate 94 Respiratory 19 Rate Blood Pressure 100/67 O2 Sat by Pulse 99 Oximetry Medical Decision Making - Medical Decision Making Was pt. sent in by a medical professional or institution (Dr. PA, BLADE BONER, urgent care, hospital, or half-way...) When possible be specific @ -[No] Did you speak to anyone other than the patient for history (EMS, parent, family, police, friend...)? What history was obtained from this source @ -[No] Did you review nursing and triage notes (agree or disagree)? Why? @ -[I reviewed and agree with nursing and triage notes] Were old charts reviewed (outside hosp., previous admission, EMS record, old EKG, old radiological studies, urgent care reports/EKG's, half-way records)? Report findings @ -[No old charts were reviewed] Differential Diagnosis (chest pain, altered mental status, abdominal pain women, abdominal pain men, vaginal bleeding, weakness, fever, dyspnea, syncope, headache, dizziness, GI bleed, back pain, seizure, CVA, palpatations, mental health, musculoskeletal)? @ -[Differential Abdominal Pain Women: Appendicitis, Cholecystitis, diverticulosis, ischemic bowel, pancreatitis, hepatitis, UTI, gastroenteritis, AAA, incarcerated hernia, bowel obstruction, constipation, inflammatory bowel, hepatitis, peptic ulcer disease, splenic infarction, perforated viscus, vulvitis, ovarian torsion, PID, kidney stone, placenta abruption, this is not meant to be an all-inclusive list ] EKG interpreted by me (3pts min.). @ -[As above] X-rays interpreted by me (1pt min.). @ -[None done] CT interpreted by me (1pt min.). @ -[None done] U/S interpreted by me (1pt. min.). @ -[None done] What testing was considered but not performed or refused? (CT, X-rays, U/S, labs)? Why? @ -[None] What meds were considered but not given or refused? Why? @ -[None] Did you discuss the management of the patient with other professionals (professionals i.e. , PA, BLADE BONER, lab, RT, psych nurse, social media campaign manager, furnace reliner, teacher, senior commercial loan officer, disease case manager)? Give summary @ -[No] Was smoking cessation discussed for >3mins.? @ -[No] Was critical care preformed (if so, how long)? @ -[No] Were there social determinants of health that impacted care today? How? (Home lessness, low income, unemployed, alcoholism, drug addiction, transportation, low edu. Level, literacy, decrease access to med. care, retirement, rehab)? @ -[No] Was there de-escalation of care discussed even if they declined (Discuss DNR or withdrawal of care, Hospice)? DNR status @ -[No] What co-morbidities impacted this encounter? (DM, HTN, Smoking, COPD, CAD, Cancer, CVA, ARF, Chemo, Hep., AIDS, mental health diagnosis, sleep apnea, morbid obesity)? @ -[Recent bariatric surgery Was patient admitted / discharged? Hospital course, mention meds given and route, prescriptions, significant lab abnormalities, going to OR and other pertinent info. @ -[Patient is a 33-year-old woman with persistent nausea and vomiting and some upper abdominal pain. The patient is given IV fluids, antiemetics, and observed in emergency department she has had significant relief of symptoms. On reevaluation there is no tenderness. We discussed CT scan of the abdomen for her symptoms, but at this point the patient feels she is improving and would like to go home. She will return if the symptoms recur or new symptoms begin. We discussed appropriate further care and follow-up as well as return parameters. Undiagnosed new problem with uncertain prognosis? @ -[No] Drug Therapy requiring intensive monitoring for toxicity (Heparin, Nitro, Insulin, Cardizem)? @ -[No] Were any procedures done? @ -[No] Diagnosis/symptom? @ -[Acute nausea and vomiting with abdominal pain, resolving Acute, or Chronic, or Acute on Chronic? @ -[Acute Uncomplicated (without systemic symptoms) or Complicated (systemic symptoms)? @ -[Uncomplicated Side effects of treatment? @ -[No] Exacerbation, Progression, or Severe Exacerbation? @ -[No] Poses a threat to life or bodily function? How? (Chest pain, [place], [place], pneumonia, PE, COPD, DKA, ARF, appy, cholecystitis, CVA, Diverticulitis, Homicidal, Suicidal, threat to staff... and all critical care pts) @ -[No] - Lab Data Result diagrams: 01/15/24 00:55 01/15/24 00:55 Lab Results 01/15/24 01/15/24 Range/Units 00:55 00:55 WBC 10.5 (3.8-10.6) k/uL RBC 5.03 (3.80-5.40) m/uL Hgb 13.2 (11.4-16.0) gm/dL Hct 43.2 (34.0-46.0) % MCV 85.8 (80.0-100.0) fL MCH 26.3 (25.0-35.0) pg MCHC 30.6 L (31.0-37.0) g/dL RDW 15.8 H (11.5-15.5) % Plt Count 285 (150-450) k/uL MPV 12.0 Neutrophils % 63 % Lymphocytes % 27 % Monocytes % 6 % Eosinophils % 2 % Basophils % 1 % Neutrophils # 6.5 (1.3-7.7) k/uL Lymphocytes # 2.8 (1.0-4.8) k/uL Monocytes # 0.6 (0-1.0) k/uL Eosinophils # 0.2 (0-0.7) k/uL Basophils # 0.1 (0-0.2) k/uL Sodium 138 (137-145) mmol/L Potassium 4.3 (3.5-5.1) mmol/L Chloride 106 (98-107) mmol/L Carbon Dioxide 18 L (22-30) mmol/L Anion Gap 14 mmol/L BUN 10 (7-17) mg/dL Creatinine 0.70 (0.52-1.04) mg/dL Est GFR (CKD-EPI)AfAm >90 (>60 ml/min/1.73 sqM) Est GFR (CKD-EPI)NonAf >90 (>60 ml/min/1.73 sqM) Glucose 93 (74-99) mg/dL Calcium 9.8 (8.4-10.2) mg/dL Total Bilirubin 0.6 (0.2-1.3) mg/dL AST 82 H (14-36) U/L ALT 141 H (4-34) U/L Alkaline Phosphatase 107 (38-126) U/L Total Protein 7.6 (6.3-8.2) g/dL Albumin 4.3 (3.5-5.0) g/dL Disposition Clinical Impression: Vomiting Disposition: HOME SELF-CARE Condition: Good Instructions (If sedation given, give patient instructions): Acute Nausea and Vomiting (ED) Is patient prescribed a controlled substance at d/c from ED?: No Referrals: Justin Molina MD [Primary Care Provider] - 1-2 days
== END 2024-01-15 03:11 | disposition home or self-care (01) ==
LOC: EC 23:24
DX: R11.2 Nausea with vomiting, unspecified (principal); R10.11 Right upper quadrant pain; R10.12 Left upper quadrant pain; R10.13 Epigastric pain; Z91.040 Latex allergy status; Z90.49 Acquired absence of other specified parts of digestive tract; Z87.891 Personal history of nicotine dependence; Z98.84 Bariatric surgery status
CPT/HCPCS: 99284; 96374; 96375 ×2; 96361 ×2; 36415; 80053; 85025; J2270; J2765; J2405

== ENCOUNTER → 2024-01-18 | Outpatient (CLI) | payer OTHER ==
[~2024-01-18] MED LIST changes: +ONDANSETRON 4 MG/2 ML VIAL IM STA; -SODIUM CHLORIDE 0.9% 500 ML 500 ML in EMPTY BAG 1 BAG IV PRN
[2024-01-18] MEDS: SODIUM CHLORIDE 0.9% 1,000 ML IV SCH (10:03)
[2024-01-18] MEDS: ONDANSETRON 4 MG/2 ML VIAL IVP STA (10:10)
[2024-01-18 10:20] LABS: Anisocytosis Slight; HCT 41.9 % (34.0-46.0); HGB 12.9 gm/dL (11.4-16.0); Hypochromasia Moderate; MCH 26.8 pg (25.0-35.0); MCHC 30.7 g/dL (31.0-37.0); MCV 87.2 fL (80.0-100.0); Mean Platelet Volume 11.2; Platelet Count 288 k/uL (150-450); RDW 16.2 % (11.5-15.5); WBC 8.5 k/uL (3.8-10.6)
[2024-01-18 10:38] VITALS: BP 114/83; PULSE 111; RESP 16; TEMP 98.3
[2024-01-18 10:58] LABS: ALT 97 U/L (4-34); AST 43 U/L (14-36); African American GFR (CKD) >90 (>60 ml/min/1.73 sqM); Albumin 4.2 g/dL (3.5-5.0); Alkaline Phosphatase 102 U/L (38-126); Anion Gap 14 mmol/L; Blood Urea Nitrogen 5 mg/dL (7-17); Carbon Dioxide 15 mmol/L (22-30); Chloride 112 mmol/L (98-107); Glucose 105 mg/dL (74-99); Non-African American GFR(CKD) >90 (>60 ml/min/1.73 sqM); Potassium 4.1 mmol/L (3.5-5.1); Sodium 141 mmol/L (137-145); Total Bilirubin 0.6 mg/dL (0.2-1.3); Total Protein 7.5 g/dL (6.3-8.2)
--- NOTE | 2024-01-18 14:33 | FL ---
EXAMINATION TYPE: FL barium swallow DATE OF EXAM: 01/18/2024 CLINICAL INDICATION: 33-year-old female patient status post sleeve gastrectomy 3-4 weeks ago unable t o keep anything down. R13.10DYSPHAGIA, UNSPECIFIED COMPARISON: None Total Fluoroscopy Time: 2 minutes 48 seconds DAP 1456.57 mGycm2. 28 images obtained. FINDINGS: Thin barium was utilized. Just under 0.25 ounces of barium was ingested. Even with this leydi unt, the patient felt nauseous. There is prompt passage of contrast from the esophagus into the proxi mal stomach but then with intermittent delay in passage across the gastric spleen. This results in oc casional pulling of contrast in the distal esophagus with some intraesophageal reflux. After Tamika con trast was ingested, there is satisfactory passage of contrast into the duodenum. There is no evidence for leak. IMPRESSION: The patient ingested just under 0.25 ounces of thin barium. Even with this small amount, the patient felt nauseous, limiting the amount of contrast we could administer. Once enough contrast had been adm inistered, there is eventual passage of contrast into the duodenum. No obstruction is seen. There was some occasional pooling in the distal esophagus with intraesophageal reflux.
== END ==
LOC: PROCWHC3 09:52
PROVIDERS: ATTEND Surgery
DX: E86.0 Dehydration (principal); R13.10 Dysphagia, unspecified
CPT/HCPCS: 80053; 85027; 74220; 96361; 96374; J2405; 96360; 96375

== ENCOUNTER → 2024-01-19 | Outpatient (CLI) | payer OTHER ==
[~2024-01-19] MED LIST changes: -ONDANSETRON 4 MG/2 ML VIAL IM STA; +SODIUM CHLORIDE 0.9% 500 ML 500 ML in EMPTY BAG 1 BAG IV PRN
[2024-01-19] MEDS: SODIUM CHLORIDE 0.9% 1,000 ML IV SCH (12:35)
[2024-01-19] MEDS: DEXAMETHASONE SOD PHOSPHATE 10 MG/ML 1 ML VIAL IV NR (12:35)
[2024-01-19] MEDS: ONDANSETRON 4 MG/2 ML VIAL IVP NR (12:35)
[2024-01-19 12:55] VITALS: BP 108/72; PULSE 81; RESP 14; TEMP 97
[2024-01-19] MEDS: SODIUM CHLORIDE 0.9% 1,000 ML IV NR (14:00)
== END ==
LOC: PROCWHC3 11:50
PROVIDERS: ATTEND Surgery
DX: E86.0 Dehydration (principal); R13.10 Dysphagia, unspecified
CPT/HCPCS: 96361; 96374; 96375; J1100; J2405; 96360

== ENCOUNTER 2024-01-23 07:31 | Emergency (ER) | payer OTHER ==
[2024-01-23] MEDS ORDERED: IOPAMIDOL CONTRAST (ORAL USE) VIAL PO PRN (07:50)
--- NOTE | 2024-01-23 07:52 | ED ---
General Adult HPI - General Chief complaint: Abdominal Pain Stated complaint: vomiting Time Seen by Provider: 01/23/24 07:41 Source: patient, RN notes reviewed Mode of arrival: ambulatory Limitations: no limitations - History of Present Illness Initial comments: Patient is a 33-year-old female present to the emergency department with concerns with nausea vomiting and abdominal pain. Onset of symptoms was 10 days ago. Patient is just over a month postop gastric stapling. Symptoms worsen with oral intake. Patient has had limited oral intake. Patient is using Zofran at home without much improvement of symptoms. No fever. No constipation or na rrhea. - Related Data Home Medications Medication Instructions Recorded Confirmed Levothyroxine Sodium 88 mcg PO DAILY 10/17/23 01/23/24 Budesonide/Formoterol Fumarate 2 puff INHALATION RT-BID 01/23/24 01/23/24 [Symbicort 160-4.5 Mcg Inhaler] [place] Carbonate ER [Lithobid] 900 mg PO HS 01/23/24 01/23/24 Tiotropium 2.5 Mcg/Puff [Spiriva 2 puff INHALATION RT-DAILY 01/23/24 01/23/24 Respimat 2.5 Mcg] Topiramate [Topamax] 50 mg PO HS 01/23/24 01/23/24 busPIRone HCl [Buspar] 10 mg PO BID 01/23/24 01/23/24 traZODone HCL [Desyrel] 100 mg PO HS PRN 01/23/24 01/23/24 Previous Rx's Medication Instructions Recorded QUEtiapine [SEROquel] 100 mg PO HS 30 Days #30 tab 03/30/23 buPROPion XL [Wellbutrin XL] 150 mg PO DAILY 30 Days #30 tab 03/30/23 Omeprazole [PriLOSEC] 40 mg PO DAILY #90 cap 12/22/23 Ondansetron Odt [Zofran Odt] 4 mg PO Q8HR PRN #9 tab 12/22/23 Allergies Allergy/AdvReac Type Severity Reaction Status Date / Time latex Allergy Rash/Hives Verified 01/23/24 07:40 Review of Systems ROS Statement: Those systems with pertinent positive or pertinent negative responses have been documented in the HPI. ROS Other: All systems not noted in ROS Statement are negative. Constitutional: Denies: fever Eyes: Denies: eye pain ENT: Denies: ear pain Gastrointestinal: Reports: as per HPI, abdominal pain, nausea, vomiting Musculoskeletal: Denies: back pain Past Medical History Past Medical History: GERD/Reflux, Sleep Apnea/CPAP/BIPAP Additional Past Medical History / Comment(s): iron defiency anemia, currently getting iron infusions, no cpap used History of Any Multi-Drug Resistant Organisms: None Reported Past Surgical History: Bariatric Surgery, Section, Cholecystectomy, Tubal Ligation, Uterine Ablation Additional Past Surgical History / Comment(s): 2008 AND 2015 (c/s) and 2010 (cholecyst), gastric sleeve 12/20/23 Past Anesthesia/Blood Transfusion Reactions: No Reported Reaction Past Psychological History: Anxiety, Bipolar, Depression Smoking Status: Never smoker Past Alcohol Use History: None Reported Past Drug Use History: None Reported - Past Family History Mother Family Medical History: Asthma, COPD, Diabetes Mellitus, Hypertension Additional Family Medical History / Comment(s): depression, anxiety, sleep apnea, Father Family Medical History: Hypertension Additional Family Medical History / Comment(s): arthritis General Exam Limitations: no limitations General appearance: alert, in no apparent distress Head exam: Present: normocephalic Eye exam: Present: normal appearance Respiratory exam: Present: normal lung sounds bilaterally Cardiovascular Exam: Present: regular rate, normal rhythm GI/Abdominal exam: Present: soft. Absent: tenderness Extremities exam: Present: normal inspection Neurological exam: Present: alert Psychiatric exam: Present: normal affect, normal mood Skin exam: Present: normal color Course Vital Signs 01/23/24 01/23/24 07:36 10:54 Temperature 98.8 F Pulse Rate 97 87 Respiratory 18 18 Rate Blood Pressure 109/86 126/91 O2 Sat by Pulse 98 100 Oximetry Medical Decision Making - Medical Decision Making Was pt. sent in by a medical professional or institution (, PA, ANIMAL ASSISTANT, urgent care, hospital, or usp...) When possible be specific @ -No Did you speak to anyone other than the patient for history (EMS, parent, family, police, friend...)? What history was obtained from this source @ -No Did you review nursing and triage notes (agree or disagree)? Why? @ -I reviewed and agree with nursing and triage notes Were old charts reviewed (outside hosp., previous admission, EMS record, old EKG, old radiological studies, urgent care reports/EKG's, usp records)? Report findings @ -Reviewed surgical procedure that patient had done back in December. Differential Diagnosis (chest pain, altered mental status, abdominal pain women, abdominal pain men, vaginal bleeding, weakness, fever, dyspnea, syncope, headache, dizziness, GI bleed, back pain, seizure, CVA, palpatations, mental health, musculoskeletal)? @ -Differential Abdominal Pain Women: Appendicitis, Cholecystitis, diverticulosis, ischemic bowel, pancreatitis, hepatitis, UTI, gastroenteritis, AAA, incarcerated hernia, bowel obstruction, constipation, inflammatory bowel, hepatitis, peptic ulcer disease, splenic in farction, perforated viscus, vulvitis, ovarian torsion, PID, kidney stone, placenta abruption, this is not meant to be an all-inclusive list EKG interpreted by me (3pts min.). @ -As above X-rays interpreted by me (1pt min.). @ -None done CT interpreted by me (1pt min.). @ -Questionable anastomotic leak U/S interpreted by me (1pt. min.). @ -None done What testing was considered but not performed or refused? (CT, X-rays, U/S, labs)? Why? @ -None What meds were considered but not given or refused? Why? @ -None Did you discuss the management of the patient with other professionals (maria c koehler i.e. , PA, ANIMAL ASSISTANT, lab, RT, psych nurse, social work nurse, flight reservations manager, teacher, ground nuclear weapons assembly officer, case making machine operator)? Give summary @ -Case discussed with Dr. Liu who recommends transfer for advanced endo scopy at [facility]. Case also discussed with Dr. Portillo who will accept transfer. Was smoking cessation discussed for >3mins.? @ -No Was critical care preformed (if so, how long)? @ -No Were there social determinants of health that impacted care today? How? (Homelessness, low income, unemployed, alcoholism, drug addiction, transportation, low edu. Level, literacy, decrease access to med. care, [facility], rehab)? @ -No Was there de-escalation of care discussed even if they declined (Discuss DNR or withdrawal of care, Hospice)? DNR status @ -No What co-morbidities impacted this encounter? (DM, HTN, Smoking, COPD, CAD, Cancer, CVA, ARF, Chemo, Hep., AIDS, mental health diagnosis, sleep apnea, morbid obesity)? @ -None Was patient admitted / discharged? Hospital course, mention meds given and route, prescriptions, significant lab abnormalities, going to OR and other pertinent info. @ -Patient reevaluated and still complains of continued symptoms. Patient is updated on results and plan. Patient will be transferred to [facility] ER category 2. Undiagnosed new problem with uncertain prognosis? @ -No Drug Therapy requiring intensive monitoring for toxicity (Heparin, Nitro, Insulin, Cardizem)? @ -No Were any procedures done? @ -No Diagnosis/symptom? @ -Abdominal pain, possible anastomosis leak Acute, or Chronic, or Acute on Chronic? @ -Acute Uncomplicated (without systemic symptoms) or Complicated (systemic symptoms)? @ -Default Side effects of treatment? @ -No Exacerbation, Progression, or Severe Exacerbation? @ -No Poses a threat to life or bodily function? How? (Chest pain, [place], [place], pneumonia, PE, COPD, DKA, ARF, appy, cholecystitis, CVA, Diverticulitis, Homicidal, Suicidal, threat to staff... and all critical care pts) @ -No - Lab Data Result diagrams: 01/23/24 07:59 01/23/24 07:59 Lab Results 01/23/24 01/23/24 01/23/24 Range/Units 07:59 07:59 07:59 WBC 8.4 (3.8-10.6) k/uL RBC 5.09 (3.80-5.40) m/uL Hgb 13.6 (11.4-16.0) gm/dL Hct 43.6 (34.0-46.0) % MCV 85.6 (80.0-100.0) fL MCH 26.6 (25.0-35.0) pg MCHC 31.1 (31.0-37.0) g/dL RDW 16.4 H (11.5-15.5) % Plt Count 256 (150-450) k/uL MPV 11.8 Neutrophils % 60 % Lymphocytes % 30 % Monocytes % 5 % Eosinophils % 2 % Basophils % 1 % Neutrophils # 5.0 (1.3-7.7) k/uL Lymphocytes # 2.5 (1.0-4.8) k/uL Monocytes # 0.5 (0-1.0) k/uL Eosinophils # 0.2 (0-0.7) k/uL Basophils # 0.1 (0-0.2) k/uL Differential Comment P Large Platelets Present Hypochromasia Slight Anisocytosis Slight PT 11.9 (10.0-12.5) sec INR 1.1 (<1.2) APTT 23.4 (22.0-30.0) sec Sodium 144 (137-145) mmol/L Potassium 3.6 (3.5-5.1) mmol/L Chloride 111 H (98-107) mmol/L Carbon Dioxide 22 (22-30) mmol/L Anion Gap 11 mmol/L BUN 12 (7-17) mg/dL Creatinine 0.57 (0.52-1.04) mg/dL Est GFR (CKD-EPI)AfAm >90 (>60 ml/min/1.73 sqM) Est GFR (CKD-EPI)NonAf >90 (>60 ml/min/1.73 sqM) Glucose 105 H (74-99) mg/dL Plasma Lactic Acid Case (0.7-2.0) mmol/L Calcium 9.7 (8.4-10.2) mg/dL Total Bilirubin 1.1 (0.2-1.3) mg/dL AST 180 H (14-36) U/L ALT 306 H (4-34) U/L Alkaline Phosphatase 100 (38-126) U/L Total Protein 7.3 (6.3-8.2) g/dL Albumin 4.0 (3.5-5.0) g/dL Amylase 63 (30-110) U/L Lipase 89 (23-300) U/L 01/23/24 Range/Units 10:36 WBC (3.8-10.6) k/uL RBC (3.80-5.40) m/uL Hgb (11.4-16.0) gm/dL Hct (34.0-46.0) % MCV (80.0-100.0) fL MCH (25.0-35.0) pg MCHC (31.0-37.0) g/dL RDW (11.5-15.5) % Plt Count (150-450) k/uL MPV Neutrophils % % Lymphocytes % % Monocytes % % Eosinophils % % Basophils % % Neutrophils # (1.3-7.7) k/uL Lymphocytes # (1.0-4.8) k/uL Monocytes # (0-1.0) k/uL Eosinophils # (0-0.7) k/uL Basophils # (0-0.2) k/uL Differential Comment Large Platelets Hypochromasia Anisocytosis PT (10.0-12.5) sec INR (<1.2) APTT (22.0-30.0) sec Sodium (137-145) mmol/L Potassium (3.5-5.1) mmol/L Chloride (98-107) mmol/L Carbon Dioxide (22-30) mmol/L Anion Gap mmol/L BUN (7-17) mg/dL Creatinine (0.52-1.04) mg/dL Est GFR (CKD-EPI)AfAm (>60 ml/min/1.73 sqM) Est GFR (CKD-EPI)NonAf (>60 ml/min/1.73 sqM) Glucose (74-99) mg/dL Plasma Lactic Acid Case 0.8 (0.7-2.0) mmol/L Calcium (8.4-10.2) mg/dL Total Bilirubin (0.2-1.3) mg/dL AST (14-36) U/L ALT (4-34) U/L Alkaline Phosphatase (38-126) U/L Total Protein (6.3-8.2) g/dL Albumin (3.5-5.0) g/dL Amylase (30-110) U/L Lipase (23-300) U/L Disposition Clinical Impression: Abdominal pain Disposition: OTHER INSTITUTION NOT DEFINED Is patient prescribed a controlled substance at d/c from ED?: No Referrals: Justin Molina MD [Primary Care Provider] - 1-2 days Time of Disposition: 11:49 - Out of Hospital Transfer - Req. Specs Out of Hospital Transfer - Requested Specifics: Other Emergency Center
[2024-01-23 08:12] LABS: Anisocytosis Slight; Basophils # (A) 0.1 k/uL (0-0.2); Basophils % (A) 1 %; Eosinophils # (A) 0.2 k/uL (0-0.7); Eosinophils % (A) 2 %; HCT 43.6 % (34.0-46.0); HGB 13.6 gm/dL (11.4-16.0); Hypochromasia Slight; Lymphocytes # (A) 2.5 k/uL (1.0-4.8); Lymphocytes % (A) 30 %; MCH 26.6 pg (25.0-35.0); MCHC 31.1 g/dL (31.0-37.0); MCV 85.6 fL (80.0-100.0); Mean Platelet Volume 11.8; Monocytes # (A) 0.5 k/uL (0-1.0); Monocytes % (A) 5 %; Neutrophils % (A) 60 %; Platelet Count 256 k/uL (150-450); RBC 5.09 m/uL (3.80-5.40); RDW 16.4 % (11.5-15.5); WBC 8.4 k/uL (3.8-10.6)
[2024-01-23] MEDS: HYDROmorphone 1 MG/ML 1 ML SYRINGE IVP STA ×2 (08:16→11:14)
[2024-01-23] MEDS: SODIUM CHLORIDE 0.9% 1,000 ML IV STA ×2 (08:16→10:51)
[2024-01-23] MEDS: FAMOTIDINE 20 MG/2 ML VIAL IV STA (08:16)
[2024-01-23] MEDS: METOCLOPRAMIDE 5 MG/ML 2 ML VIAL IVP STA ×2 (08:16→11:14)
[2024-01-23 08:21] LABS: INR 1.1 (<1.2); Partial Thromboplastin Time 23.4 sec (22.0-30.0); Prothrombin Time 11.9 sec (10.0-12.5)
[2024-01-23 08:38] LABS: ALT 306 U/L (4-34); AST 180 U/L (14-36); African American GFR (CKD) >90 (>60 ml/min/1.73 sqM); Alkaline Phosphatase 100 U/L (38-126); Amylase 63 U/L (30-110); Anion Gap 11 mmol/L; Blood Urea Nitrogen 12 mg/dL (7-17); Calcium 9.7 mg/dL (8.4-10.2); Carbon Dioxide 22 mmol/L (22-30); Chloride 111 mmol/L (98-107); Glucose 105 mg/dL (74-99); Lipase 89 U/L (23-300); Non-African American GFR(CKD) >90 (>60 ml/min/1.73 sqM); Potassium 3.6 mmol/L (3.5-5.1); Sodium 144 mmol/L (137-145); Total Bilirubin 1.1 mg/dL (0.2-1.3); Total Protein 7.3 g/dL (6.3-8.2)
--- NOTE | 2024-01-23 09:09 | CT ---
EXAMINATION TYPE: CT abdomen pelvis w con CT DLP: 1535.2 mGycm, Automated exposure control for dose reduction was used. DATE OF EXAM: 01/23/2024 8:55 AM COMPARISON: CT abdomen pelvis most recent from 07/29/2021. CLINICAL INDICATION:Female, 33 years old with history of bariatric protocol; Vomiting, S/P gastric sl eeve 12-20-2023 TECHNIQUE: Axial CT abdomen pelvis w con;Sagittal and coronal reformats were created on a separate w orkstation. Contrast used:100 ml mL of Isovue 300 with IV Contrast, (none if empty) Oral contrast used: with Oral Contrast (none if empty) FINDINGS: LOWER CHEST: Unremarkable ABDOMEN LIVER: Unremarkable GALLBLADDER AND BILE DUCTS: Unremarkable. PANCREAS: Unremarkable. SPLEEN: Unremarkable. ADRENAL GLANDS: Unremarkable. KIDNEYS AND URETERS: No evidence of hydronephrosis or renal calculus. The ureters are unremarkable. PELVIS BLADDER: Unremarkable REPRODUCTIVE: Unremarkable. ABDOMEN & PELVIS STOMACH AND BOWEL: Postsurgical changes to the gastric lumen with extravasation of oral contrast out of the gastric lumen posteriorly may not be within the gastric lumen itself isn't thickened wall seen on series 202 image 42 additional fingerlike projection extends posteriorly series 202 image 58. Fat stranding changes are seen in the upper abdomen near this area. Oral contrast does extend into the j ejunum. The appendix is normal. PERITONEUM/RETROPERITONEUM: No evidence of pneumoperitoneum or free fluid. VASCULATURE: No evidence of aortic aneurysm. MUSCULOSKELETAL: No acute osseous abnormalities LYMPH NODES: No gross evidence for lymphadenopathy. SOFT TISSUE/ABDOMINAL WALL: Unremarkable IMPRESSION: Contrast extending away from the posterior aspect of the gastric lumen suspicious for anastomotic temi k. There is fat stranding changes within this region and lymph nodes present suggesting active inflam mation. Surgical consultation recommended.
[2024-01-23 09:57] LABS: Large Platelets Present
[2024-01-23] MEDS: PIPERACILLIN-TAZOBACTAM 3.375 GM in SODIUM CHLORIDE 0.9% 100 ML IVPB STA (10:37)
[2024-01-23 12:43] VITALS: BP 136/85; PULSE 76; RESP 17; TEMP 97.7
[2024-01-23] MEDS ORDERED: PIPERACILLIN-TAZOBACTAM 3.375 GM in SODIUM CHLORIDE 0.9% 100 ML IVPB SCH (20:00)
== END 2024-01-23 12:25 | disposition other institution (70) ==
LOC: EC 07:31
DX: R10.9 Unspecified abdominal pain (principal); Z91.040 Latex allergy status
CPT/HCPCS: 36415; 80053; 82150; 83605; 83690; 85025; 85610; 85730; 87040; 74177; 99285; 96365; 96375 ×3; 96376 ×2; 96361 ×2; J2543; J2765; J3490; J1170; Q9967

== ENCOUNTER → 2024-01-30 | Outpatient (CLI) | payer OTHER ==
[2024-01-30 13:21] VITALS: BMI 44.6
[2024-01-30 14:20] VITALS: BP 106/77; PULSE 116; RESP 16; TEMP 98.2
--- NOTE | 2024-03-29 11:53 | P.HPBAR ---
Bariatric H&P - History & Physicial H&P Date: 01/30/24 History & Physicial: Visit/CC: F/U Patient initial contact: Initial weight: 107.955 kg Initial weight in pounds: 238.00 Height: 5 ft 2 in Initial BMI: 43.5 Last weight: Current weight: 110.677 kg Current weight in pounds: 244.00 Current BMI: 44.6 Hulbert body weight (based on NIH guidelines): 49.895 kg Excess body weight loss: The patient is a 33 year-old F who presents for Bariatric Assessment. Patient presents today for bariatric follow-up. Patient has had complaints of GERD and nausea. She is scheduled for EGD with possible sleeve dilation at [facility]. Past Medical History Past Medical History: GERD/Reflux, Sleep Apnea/CPAP/BIPAP Additional Past Medical History / Comment(s): iron defiency anemia, currently getting iron infusions, no cpap used History of Any Multi-Drug Resistant Organisms: None Reported Past Surgical History: Bariatric Surgery, Section, Cholecystectomy, Tubal Ligation, Uterine Ablation Additional Past Surgical History / Comment(s): 2008 AND 2015 (c/s) and 2010 (cholecyst). 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 Past Anesthesia/Blood Transfusion Reactions: No Reported Reaction Smoking Status: Former smoker - Past Family History Mother Family Medical History: Asthma, COPD, Diabetes Mellitus, Hypertension Additional Family Medical History / Comment(s): depression, anxiety, sleep apnea, Father Family Medical History: Hypertension Additional Family Medical History / Comment(s): arthritis Surgical - Exam Vital Signs Temp Pulse Resp BP 98.2 F 116 H 16 106/77 01/30/24 13:34 01/30/24 13:34 01/30/24 13:34 01/30/24 13:34 - General well developed, well nourished, no distress - Eyes PERRL - ENT normal pinna - Neck no masses - Respiratory normal expansion - Abdomen Abdomen: soft, non tender Bariatric Assessment & Plan Plan: Chronic gerd nausea after sleeve. Patient will continue liquid diet. She will follow-up at [facility] for her EGD with possible dilation. Bariatric Checklist Checklist: Plan: Checklist: EGD: 1. Hiatal hernia: 2. H. Pylori: HgbA1c: Vitamin D: Smoking: Current every day smoker Primary care physician referral: Tracy Psychiatry clearance: Cardiology clearance: Sleep study: Diet journal: VTE risk score: VTE risk level: Rehab needs at discharge:
== END ==
LOC: BARWHC3 10:43
PROVIDERS: ATTEND Surgery
DX: E66.01 Morbid (severe) obesity due to excess calories (principal); K21.9 Gastro-esophageal reflux disease without esophagitis; R11.0 Nausea; Z90.3 Acquired absence of stomach [part of]; Z98.84 Bariatric surgery status; Z87.891 Personal history of nicotine dependence; Z91.040 Latex allergy status; Z88.5 Allergy status to narcotic agent; Z68.41 Body mass index [BMI] 40.0-44.9, adult; Z71.3 Dietary counseling and surveillance
CPT/HCPCS: 97803; G0463; 99211

== ENCOUNTER 2024-02-09 15:56 | Inpatient (IN) | payer OTHER ==
--- NOTE | 2024-02-09 16:47 | ED ---
General Adult HPI - General Chief complaint: Nausea/Vomiting/Diarrhea Stated complaint: Post-op vomiting Time Seen by Provider: 02/09/24 16:05 Source: patient Mode of arrival: ambulatory Limitations: no limitations - History of Present Illness Initial comments: 33-year-old female with past medical history of gastric sleeve on December [address] Liu who presents to the emergency department reporting abdominal pain. Patient was seen on the of this month for abdominal pain. CT found that she had a possible anastomotic leak and was sent down to [facility]. States that 3 days into her admission down there she had an EGD with dilation. She went home and was able to eat after the fifth day. She is supposed to be on a full liquid diet. States that as of 3 days ago she has been unable to hold down any water. States she will attempt to drink it however after a few minutes it comes right back out. She states that this symptom feels similar to when she was hospitalized on the . She admits to epigastric pain. No fevers. No concern for . Does admit to dark urine. No other alleviating, precipitating or modifying factors - Related Data Home Medications Medication Instructions Recorded Confirmed Levothyroxine Sodium 88 mcg PO DAILY 10/17/23 02/09/24 Budesonide/Formoterol Fumarate 2 puff INHALATION RT-BID 01/23/24 02/09/24 [Symbicort 160-4.5 Mcg Inhaler] [place] Carbonate ER [Lithobid] 900 mg PO HS 01/23/24 02/09/24 Tiotropium 2.5 Mcg/Puff [Spiriva 2 puff INHALATION RT-DAILY 01/23/24 02/09/24 Respimat 2.5 Mcg] Topiramate [Topamax] 50 mg PO HS 01/23/24 02/09/24 busPIRone HCl [Buspar] 10 mg PO BID 01/23/24 02/09/24 traZODone HCL [Desyrel] 100 mg PO HS PRN 01/23/24 02/09/24 Acetaminophen [Tylenol] 325 - 650 mg PO Q6H PRN 02/09/24 02/09/24 Hyoscyamine Sulfate [Hyoscyamine 0.125 - 0.25 mg SL Q6H PRN 02/09/24 02/09/24 Sulfate SL] methocarbamoL [Robaxin-750] 750 mg PO QID PRN 02/09/24 02/09/24 Previous Rx's Medication Instructions Recorded QUEtiapine [SEROquel] 100 mg PO HS 30 Days #30 tab 03/30/23 buPROPion XL [Wellbutrin XL] 150 mg PO DAILY 30 Days #30 tab 03/30/23 Omeprazole [PriLOSEC] 40 mg PO DAILY #90 cap 12/22/23 Ondansetron Odt [Zofran Odt] 4 mg PO Q8HR PRN #9 tab 12/22/23 Allergies Allergy/AdvReac Type Severity Reaction Status Date / Time latex Allergy Rash/Hives Verified 02/09/24 19:24 Review of Systems ROS Statement: Those systems with pertinent positive or pertinent negative responses have been documented in the HPI. ROS Other: All systems not noted in ROS Statement are negative. Past Medical History Past Medical History: GERD/Reflux, Sleep Apnea/CPAP/BIPAP Additional Past Medical History / Comment(s): iron defiency anemia, currently getting iron infusions, no cpap used History of Any Multi-Drug Resistant Organisms: None Reported Past Surgical History: Bariatric Surgery, Section, Cholecystectomy, Tubal Ligation, Uterine Ablation Additional Past Surgical History / Comment(s): 2008 AND 2015 (c/s) and 2010 (cholecyst). 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 Past Anesthesia/Blood Transfusion Reactions: No Reported Reaction Past Psychological History: Anxiety, Bipolar, Depression Smoking Status: Never smoker Past Alcohol Use History: None Reported - Past Family History Mother Family Medical History: Asthma, COPD, Diabetes Mellitus, Hypertension Additional Family Medical History / Comment(s): depression, anxiety, sleep apnea, Father Family Medical History: Hypertension Additional Family Medical History / Comment(s): arthritis General Exam Limitations: no limitations General appearance: alert, in no apparent distress Head exam: Present: atraumatic, normocephalic, normal inspection Eye exam: Present: normal appearance, PERRL, EOMI. Absent: scleral icterus, conjunctival injection, periorbital swelling ENT exam: Present: mucous membranes dry Respiratory exam: Present: normal lung sounds bilaterally. Absent: respiratory distress, wheezes, rales, rhonchi, stridor Cardiovascular Exam: Present: tachycardia GI/Abdominal exam: Present: tenderness (epigastric). Absent: guarding, rigid Extremities exam: Present: normal inspection, full ROM, normal capillary refill. Absent: tenderness, pedal edema, joint swelling, calf tenderness Neurological exam: Present: alert, oriented X3, CN II-XII intact Psychiatric exam: Present: normal affect, normal mood Course Vital Signs 02/09/24 02/09/24 02/10/24 15:57 20:38 01:21 Temperature 98.4 F Pulse Rate 113 H 108 H 90 Pulse Rate [ Pulse Oximetery ] Respiratory 16 18 16 Rate Blood Pressure 110/87 132/88 104/77 Blood Pressure [Left Arm] O2 Sat by Pulse 87 L 100 96 Oximetry 02/10/24 02/10/24 02/10/24 04:21 06:39 08:00 Temperature 98.1 F Pulse Rate 96 93 Pulse Rate [ 92 Pulse Oximetery ] Respiratory 18 18 16 Rate Blood Pressure 106/72 112/73 Blood Pressure 117/78 [Left Arm] O2 Sat by Pulse 99 97 98 Oximetry 02/10/24 02/10/24 13:24 15:52 Temperature 98.0 F 98.0 F Pulse Rate 88 Pulse Rate [ 90 Pulse Oximetery ] Respiratory 16 17 Rate Blood Pressure 115/75 Blood Pressure 125/84 [Left Arm] O2 Sat by Pulse 96 98 Oximetry Medical Decision Making - Medical Decision Making Was pt. sent in by a medical professional or institution (STEPHY Wild, DYE ROOM HELPER, urgent care, hospital, or snf...) When possible be specific @ -No Did you speak to anyone other than the patient for history (EMS, parent, family, police, friend...)? What history was obtained from this source @ -No Did you review nursing and triage notes (agree or disagree)? Why? @ -I reviewed and agree with nursing and triage notes Were old charts reviewed (outside hosp., previous admission, EMS record, old EKG, old radiological studies, urgent care reports/EKG's, snf records)? Report findings @ -I reviewed patient's CT report from January 22 where she had a possible anastomotic leak Differential Diagnosis (chest pain, altered mental status, abdominal pain women, abdominal pain men, vaginal bleeding, weakness, fever, dyspnea, syncope, headache, dizziness, GI bleed, back pain, seizure, CVA, palpatations, mental he alth, musculoskeletal)? @ -Differential Abdominal Pain Women: Appendicitis, Cholecystitis, diverticulosis, ischemic bowel, pancreatitis, hepatitis, UTI, gastroenteritis, AAA, incarcerated hernia, bowel obstruction, constipation, inflammatory bowel, hepatitis, peptic ulcer disease, splenic infarction, perforated viscus, vulvitis, ovarian torsion, PID, kidney stone, placenta abruption, this is not meant to be an all-inclusive list EKG interpreted by me (3pts min.). @ -Not done X-rays interpreted by me (1pt min.). @ -None done CT interpreted by me (1pt min.). @ -None done U/S interpreted by me (1pt. min.). @ -None done What testing was considered but not performed or refused? (CT, X-rays, U/S, labs)? Why? @ -None What meds were considered but not given or refused? Why? @ -None Did you discuss the management of the patient with other professionals (professionals i.e. DrKayli, PA, DYE ROOM HELPER, lab, RT, psych nurse, addiction social worker, billet bed operator, teacher, vessel traffic officer, keycase assembler)? Give summary @ -Spoke with Dr. Liu who agreed to admit the patient Was smoking cessation discussed for >3mins.? @ -No Was critical care preformed (if so, how long)? @ -No Were there social determinants of health that impacted care today? How? (Homelessness, low income, unemployed, alcoholism, drug addiction, transportation, low edu. Level, literacy, decrease access to med. care, group home, rehab)? @ -No Was there de-escalation of care discussed even if they declined (Discuss DNR or withdrawal of care, Hospice)? DNR status @ -No What co-morbidities impacted this encounter? (DM, HTN, Smoking, COPD, CAD, Canc er, CVA, ARF, Chemo, Hep., AIDS, mental health diagnosis, sleep apnea, morbid obesity)? @ -Obesity with recent sleeve gastrectomy Was patient admitted / discharged? Hospital course, mention meds given and route, prescriptions, significant lab abnormalities, going to OR and other pertinent info. @ -Upon arrival patient was seen and evaluated in room 32. Thorough history and physical exam was performed. IV access was established. Laboratory studies were conducted. Patient received intravenous fluids, nausea medications and pain medications. Laboratory studies demonstrate possible UTI. Patient is given antibiotics. I called and spoke with Dr. Liu who was agreeable to admit the patient due to her inability to hold down any food or drink. Patient awaiting a bed on the floor in stable condition Undiagnosed new problem with uncertain prognosis? @ -No Drug Therapy requiring intensive monitoring for toxicity (Heparin, Nitro, Insulin, Cardizem)? @ -No Were any procedures done? @ -No Diagnosis/symptom? @ -Acute nausea vomiting, acute epigastric pain, acute UTI, status post sleeve gastrectomy Acute, or Chronic, or Acute on Chronic? @ -Acute Uncomplicated (without systemic symptoms) or Complicated (systemic symptoms)? @ -Complicated Side effects of treatment? @ -No Exacerbation, Progression, or Severe Exacerbation? @ -No Poses a threat to life or bodily function? How? (Chest pain, [place], [place], pneumonia, PE, COPD, DKA, ARF, appy, cholecystitis, CVA, Diverticulitis, Homicidal, Suicidal, threat to staff... and all critical care pts) @ -Yes as patient cannot eat or drink - Lab Data Result diagrams: 02/15/24 04:48 02/15/24 04:48 Lab Results 02/09/24 02/09/24 02/09/24 Range/Units 17:03 17:03 17:03 WBC 11.5 H (3.8-10.6) k/uL RBC 5.50 H (3.80-5.40) m/uL Hgb 14.5 (11.4-16.0) gm/dL Hct 46.8 H (34.0-46.0) % MCV 85.1 (80.0-100.0) fL MCH 26.4 (25.0-35.0) pg MCHC 31.0 (31.0-37.0) g/dL RDW 18.0 H (11.5-15.5) % Plt Count 210 (150-450) k/uL MPV 12.4 Neutrophils % 77 % Lymphocytes % 15 % Monocytes % 5 % Eosinophils % 1 % Basophils % 1 % Neutrophils # 8.9 H (1.3-7.7) k/uL Lymphocytes # 1.7 (1.0-4.8) k/uL Monocytes # 0.6 (0-1.0) k/uL Eosinophils # 0.1 (0-0.7) k/uL Basophils # 0.1 (0-0.2) k/uL Manual Slide Review Performed Large Platelets Present Polychromasia Present Hypochromasia Slight Anisocytosis Slight Sodium 141 (137-145) mmol/L Potassium 3.8 (3.5-5.1) mmol/L Chloride 105 (98-107) mmol/L Carbon Dioxide 25 (22-30) mmol/L Anion Gap 11 mmol/L BUN 12 (7-17) mg/dL Creatinine 0.58 (0.52-1.04) mg/dL Est GFR (CKD-EPI)AfAm >90 (>60 ml/min/1.73 sqM) Est GFR (CKD-EPI)NonAf >90 (>60 ml/min/1.73 sqM) Glucose 101 H (74-99) mg/dL Plasma Lactic Acid Case (0.7-2.0) mmol/L Calcium 10.0 (8.4-10.2) mg/dL Total Bilirubin 1.0 (0.2-1.3) mg/dL AST 76 H (14-36) U/L ALT 101 H (4-34) U/L Alkaline Phosphatase 95 (38-126) U/L Total Protein 7.8 (6.3-8.2) g/dL Albumin 4.5 (3.5-5.0) g/dL Lipase 95 (23-300) U/L Urine Color Dark Brown Urine Appearance Turbid H (Clear) Urine pH 6.0 (5.0-8.0) Ur Specific [place] 1.031 (1.001-1.035) Urine Protein 2+ H (Negative) Urine Glucose (UA) Negative (Negative) Urine Ketones 2+ H (Negative) Urine Blood Trace H (Negative) Urine Nitrite Negative (Negative) Urine Bilirubin 1+ H (Negative) Urine Urobilinogen 12.0 (<2.0) mg/dL Ur Leukocyte Esterase Trace H (Negative) Urine RBC 20 H (0-5) /hpf Urine WBC 73 H (0-5) /hpf Ur Squamous Epith Cells 37 H (0-4) /hpf Urine Bacteria Many H (None) /hpf Urine Mucus Many H (None) /hpf Urine HCG, Qual (Not Detectd) 02/09/24 02/09/24 Range/Units 17:03 17:03 WBC (3.8-10.6) k/uL RBC (3.80-5.40) m/uL Hgb (11.4-16.0) gm/dL Hct (34.0-46.0) % MCV (80.0-100.0) fL MCH (25.0-35.0) pg MCHC (31.0-37.0) g/dL RDW (11.5-15.5) % Plt Count (150-450) k/uL MPV Neutrophils % % Lymphocytes % % Monocytes % % Eosinophils % % Basophils % % Neutrophils # (1.3-7.7) k/uL Lymphocytes # (1.0-4.8) k/uL Monocytes # (0-1.0) k/uL Eosinophils # (0-0.7) k/uL Basophils # (0-0.2) k/uL Manual Slide Review Large Platelets Polychromasia Hypochromasia Anisocytosis Sodium (137-145) mmol/L Potassium (3.5-5.1) mmol/L Chloride (98-107) mmol/L Carbon Dioxide (22-30) mmol/L Anion Gap mmol/L BUN (7-17) mg/dL Creatinine (0.52-1.04) mg/dL Est GFR (CKD-EPI)AfAm (>60 ml/min/1.73 sqM) Est GFR (CKD-EPI)NonAf (>60 ml/min/1.73 sqM) Glucose (74-99) mg/dL Plasma Lactic Acid Case 1.0 (0.7-2.0) mmol/L Calcium (8.4-10.2) mg/dL Total Bilirubin (0.2-1.3) mg/dL AST (14-36) U/L ALT (4-34) U/L Alkaline Phosphatase (38-126) U/L Total Protein (6.3-8.2) g/dL Albumin (3.5-5.0) g/dL Lipase (23-300) U/L Urine Color Urine Appearance (Clear) Urine pH (5.0-8.0) Ur Specific [place] (1.001-1.035) Urine Protein (Negative) Urine Glucose (UA) (Negative) Urine Ketones (Negative) Urine Blood (Negative) Urine Nitrite (Negative) Urine Bilirubin (Negative) Urine Urobilinogen (<2.0) mg/dL Ur Leukocyte Esterase (Negative) Urine RBC (0-5) /hpf Urine WBC (0-5) /hpf Ur Squamous Epith Cells (0-4) /hpf Urine Bacteria (None) /hpf Urine Mucus (None) /hpf Urine HCG, Qual Not Detected (Not Detectd) Disposition Clinical Impression: Nausea and vomiting, Epigastric pain, S/P gastric sleeve procedure Disposition: ADMITTED IP TO THIS [facility] Condition: Stable Is patient prescribed a controlled substance at d/c from ED?: No Time of Disposition: 20:31 Decision to Admit Reason: Admit from EC Decision Date: 02/09/24 Decision Time: 20:31
[2024-02-09] MEDS: SODIUM CHLORIDE 0.9% 2,000 ML IV STA (17:17)
[2024-02-09] MEDS: KETOROLAC 15 MG/ML 1 ML VIAL IVP STA (17:18)
[2024-02-09] MEDS: ONDANSETRON 4 MG/2 ML VIAL IVP STA (17:19)
[2024-02-09 17:31] LABS: Anisocytosis Slight; Appearance,Urine Turbid (Clear); Bacteria,Urine Many /hpf; Basophils # (A) 0.1 k/uL (0-0.2); Basophils % (A) 1 %; Bilirubin,Urine 1+ (Negative); Blood,Urine Trace (Negative); Color,Urine Dark Brown; Eosinophils # (A) 0.1 k/uL (0-0.7); Eosinophils % (A) 1 %; Glucose,Urine (UA) Negative (Negative); HCT 46.8 % (34.0-46.0); HGB 14.5 gm/dL (11.4-16.0); Hypochromasia Slight; Ketones,Urine 2+ (Negative); Leukocyte Esterase,Urine Trace (Negative); Lymphocytes # (A) 1.7 k/uL (1.0-4.8); Lymphocytes % (A) 15 %; MCH 26.4 pg (25.0-35.0); MCV 85.1 fL (80.0-100.0); Mean Platelet Volume 12.4; Monocytes # (A) 0.6 k/uL (0-1.0); Monocytes % (A) 5 %; Mucus,Urine Many /hpf; Neutrophils # (A) 8.9 k/uL (1.3-7.7); Neutrophils % (A) 77 %; Nitrite,Urine Negative (Negative); Platelet Count 210 k/uL (150-450); Protein,Urine 2+ (Negative); RBC,Urine 20 /hpf (0-5); Specific Gravity,Urine 1.031 (1.001-1.035); Squamous Epithelial Cell,Urine 37 /hpf (0-4); WBC 11.5 k/uL (3.8-10.6); WBC,Urine 73 /hpf (0-5)
[2024-02-09 17:38] LABS: ALT 101 U/L (4-34); African American GFR (CKD) >90 (>60 ml/min/1.73 sqM); Anion Gap 11 mmol/L; Blood Urea Nitrogen 12 mg/dL (7-17); Carbon Dioxide 25 mmol/L (22-30); Chloride 105 mmol/L (98-107); Glucose 101 mg/dL (74-99); Lipase 95 U/L (23-300); Non-African American GFR(CKD) >90 (>60 ml/min/1.73 sqM); Sodium 141 mmol/L (137-145)
[2024-02-09 17:39] LABS: AST 76 U/L (14-36); Albumin 4.5 g/dL (3.5-5.0); Alkaline Phosphatase 95 U/L (38-126); Potassium 3.8 mmol/L (3.5-5.1); Total Protein 7.8 g/dL (6.3-8.2)
[2024-02-09 17:52] LABS: Large Platelets Present; Polychromasia Present
[2024-02-09] MEDS: diphenhydrAMINE 50 MG/ML 1 ML VIAL IVP STA (18:51)
[2024-02-09] MEDS: METOCLOPRAMIDE 5 MG/ML 2 ML VIAL IVP STA (18:52)
[2024-02-09] MEDS: MORPHINE SULFATE 4 MG/ML SYRINGE IVP STA (18:53)
[2024-02-09] MEDS ORDERED: NALOXONE 0.4 MG/ML 1 ML VIAL IV PRN (20:31)
[2024-02-09] MEDS: ONDANSETRON 4 MG/2 ML VIAL IVP PRN (20:58)
[2024-02-09] MEDS: MORPHINE SULFATE 4 MG/ML SYRINGE IV PRN (20:59)
[2024-02-09] MEDS: SODIUM CHLORIDE 0.9% 1,000 ML IV SCH (21:16)
[2024-02-09] MEDS: cefTRIAXone IN SWFI 1,000 MG/10 ML SYRINGE IVP STA (21:16)
[2024-02-10] MEDS: METOCLOPRAMIDE 5 MG/ML 2 ML VIAL IVP STA (05:32)
[2024-02-10] MEDS: KETOROLAC 15 MG/ML 1 ML VIAL IVP PRN (06:43)
[2024-02-10] MEDS: PANTOPRAZOLE 40 MG/10 ML VIAL IVP SCH (08:08)
[2024-02-10] MEDS: DEXAMETHASONE SOD PHOSPHATE 4 MG/ML 1 ML VIAL IVP SCH (08:36)
--- NOTE | 2024-02-10 08:57 | P.GSHP ---
History of Present Illness H&P Date: 02/10/24 CHIEF COMPLAINT: Nausea and vomiting HISTORY OF PRESENT ILLNESS: This is a 33-year-old female with a history of sleeve gastrectomy with Dr. Liu on December 19. Patient presented to the emergency room with complaints of nausea and vomiting over the last 3 days. Patient was seen at [facility] earlier this month and had EGD with dilation. Patient reports she had been doing well up until last 3 days. She does report epigastric discomfort but feels that it is related to all of the vomiting. Patient has had about a 50 pound weight loss since surgery. Patient was mildly tachycardic on admission with evidence of dehydration. Receiving IV fluids. Patient seen and examined with Dr. Liu PAST MEDICAL HISTORY: GERD/Reflux, Sleep Apnea/CPAP/BIPAP, iron deficiency anemia, anxiety, bipolar, depression PAST SURGICAL HISTORY: Sleeve gastrectomy, , cholecystectomy, tubal ligation, uterine ablation MEDICATIONS: See below ALLERGIES: See below SOCIAL HISTORY: No illicit drug use. REVIEW OF SYSTEMS: CONSTITUTIONAL: Denies fever or chills. HEENT: Denies blurred vision, vision changes, or eye pain. Denies hemoptysis CARDIOVASCULAR: Denies chest pain or pressure. RESPIRATORY: No shortness of breath. GASTROINTESTINAL: See HPI for pertinent findings HEMATOLOGIC: Denies bleeding disorders. GENITOURINARY: Denies any blood in urine or increased urinary frequency. SKIN: Denies pruitis. Denies rash. PHYSICAL EXAM: VITAL SIGNS: Reviewed GENERAL: Well-developed in no acute distress. HEENT: No sclera icterus. Extraocular movements grossly intact. Moist buccal mucosa. Head is atraumatic, normocephalic. No nasal drainage. ABDOMEN: Soft. Obese. Nondistended. Nontender NEUROLOGIC: Alert and oriented. Cranial nerves II through XII grossly intact. LABORATORY DATA: WBC 11.5 Hgb 14.5 platelets 210 Sodium is 141 potassium 3.8 creatinine 0.58 Lactic acid 1.0 Total bili 1.0 AST 76 ALT 101 alk phos 95 lipase 95 IMAGING: ASSESSMENT: 1. Dysphagia likely related to scarring from sleeve gastrectomy surgery. Had recent EGD with dilation at [facility] 2. Dehydration PLAN: -Patient scheduled for EGD with dilation with Dr. Liu on February 12 -Start Decadron 4 mg IV every 6 hours -Hydrate patient. Continue IV fluids -Continue supportive care -Patient can have sips of clear liquids -Consult Dr. Molina for medical management Physician Telecom Network Manager note has been reviewed by physician. Signing provider agrees with the documented findings, assessment, and plan of care. Past Medical History Past Medical History: GERD/Reflux, Sleep Apnea/CPAP/BIPAP Additional Past Medical History / Comment(s): iron defiency anemia, currently getting iron infusions, no cpap used History of Any Multi-Drug Resistant Organisms: None Reported Past Surgical History: Bariatric Surgery, Section, Cholecystectomy, Tubal Ligation, Uterine Ablation Additional Past Surgical History / Comment(s): 2008 AND 2015 (c/s) and 2010 (cholecyst). 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 Past Anesthesia/Blood Transfusion Reactions: No Reported Reaction Past Psychological History: Anxiety, Bipolar, Depression Smoking Status: Never smoker Past Alcohol Use History: None Reported - Past Family History Mother Family Medical History: Asthma, COPD, Diabetes Mellitus, Hypertension Additional Family Medical History / Comment(s): depression, anxiety, sleep apnea, Father Family Medical History: Hypertension Additional Family Medical History / Comment(s): arthritis Medications and Allergies Home Medications Medication Instructions Recorded Confirmed Type QUEtiapine [SEROquel] 100 mg PO HS 30 Days #30 tab 03/30/23 02/09/24 Rx buPROPion XL [Wellbutrin XL] 150 mg PO DAILY 30 Days #30 tab 03/30/23 02/09/24 Rx Levothyroxine Sodium 88 mcg PO DAILY 10/17/23 02/09/24 History Omeprazole [PriLOSEC] 40 mg PO DAILY #90 cap 12/22/23 02/09/24 Rx Ondansetron Odt [Zofran Odt] 4 mg PO Q8HR PRN #9 tab 12/22/23 02/09/24 Rx Budesonide/Formoterol Fumarate 2 puff INHALATION RT-BID 01/23/24 02/09/24 History [Symbicort 160-4.5 Mcg Inhaler] [place] Carbonate ER [Lithobid] 900 mg PO HS 01/23/24 02/09/24 History Tiotropium 2.5 Mcg/Puff [Spiriva 2 puff INHALATION RT-DAILY 01/23/24 02/09/24 History Respimat 2.5 Mcg] Topiramate [Topamax] 50 mg PO HS 01/23/24 02/09/24 History busPIRone HCl [Buspar] 10 mg PO BID 01/23/24 02/09/24 History traZODone HCL [Desyrel] 100 mg PO HS PRN 01/23/24 02/09/24 History Acetaminophen [Tylenol] 325 - 650 mg PO Q6H PRN 02/09/24 02/09/24 History Hyoscyamine Sulfate [Hyoscyamine 0.125 - 0.25 mg SL Q6H PRN 02/09/24 02/09/24 History Sulfate SL] methocarbamoL [Robaxin-750] 750 mg PO QID PRN 02/09/24 02/09/24 History Allergies Allergy/AdvReac Type Severity Reaction Status Date / Time latex Allergy Rash/Hives Verified 02/09/24 19:24 Surgical - Exam Vital Signs Temp Pulse Resp BP Pulse Ox 98.4 F 113 H 16 110/87 87 L 02/09/24 15:57 02/09/24 15:57 02/09/24 15:57 02/09/24 15:57 02/09/24 15:57 Results - Labs 02/09/24 17:03 02/09/24 17:03 Abnormal Lab Results - Last 24 Hours (Table) 02/09/24 02/09/24 02/09/24 Range/Units 17:03 17:03 17:03 WBC 11.5 H (3.8-10.6) k/uL RBC 5.50 H (3.80-5.40) m/uL Hct 46.8 H (34.0-46.0) % RDW 18.0 H (11.5-15.5) % Neutrophils # 8.9 H (1.3-7.7) k/uL Glucose 101 H (74-99) mg/dL AST 76 H (14-36) U/L ALT 101 H (4-34) U/L Urine Appearance Turbid H (Clear) Urine Protein 2+ H (Negative) Urine Ketones 2+ H (Negative) Urine Blood Trace H (Negative) Urine Bilirubin 1+ H (Negative) Ur Leukocyte Esterase Trace H (Negative) Urine RBC 20 H (0-5) /hpf Urine WBC 73 H (0-5) /hpf Ur Squamous Epith Cells 37 H (0-4) /hpf Urine Bacteria Many H (None) /hpf Urine Mucus Many H (None) /hpf Diabetes panel 02/09/24 Range/Units 17:03 Sodium 141 (137-145) mmol/L Potassium 3.8 (3.5-5.1) mmol/L Chloride 105 (98-107) mmol/L Carbon Dioxide 25 (22-30) mmol/L BUN 12 (7-17) mg/dL Creatinine 0.58 (0.52-1.04) mg/dL Glucose 101 H (74-99) mg/dL Calcium 10.0 (8.4-10.2) mg/dL AST 76 H (14-36) U/L ALT 101 H (4-34) U/L Alkaline Phosphatase 95 (38-126) U/L Total Protein 7.8 (6.3-8.2) g/dL Albumin 4.5 (3.5-5.0) g/dL Calcium panel 02/09/24 Range/Units 17:03 Calcium 10.0 (8.4-10.2) mg/dL Albumin 4.5 (3.5-5.0) g/dL Pituitary panel 02/09/24 Range/Units 17:03 Sodium 141 (137-145) mmol/L Potassium 3.8 (3.5-5.1) mmol/L Chloride 105 (98-107) mmol/L Carbon Dioxide 25 (22-30) mmol/L BUN 12 (7-17) mg/dL Creatinine 0.58 (0.52-1.04) mg/dL Glucose 101 H (74-99) mg/dL Calcium 10.0 (8.4-10.2) mg/dL Adrenal panel 02/09/24 Range/Units 17:03 Sodium 141 (137-145) mmol/L Potassium 3.8 (3.5-5.1) mmol/L Chloride 105 (98-107) mmol/L Carbon Dioxide 25 (22-30) mmol/L BUN 12 (7-17) mg/dL Creatinine 0.58 (0.52-1.04) mg/dL Glucose 101 H (74-99) mg/dL Calcium 10.0 (8.4-10.2) mg/dL Total Bilirubin 1.0 (0.2-1.3) mg/dL AST 76 H (14-36) U/L ALT 101 H (4-34) U/L Alkaline Phosphatase 95 (38-126) U/L Total Protein 7.8 (6.3-8.2) g/dL Albumin 4.5 (3.5-5.0) g/dL
[2024-02-10 09:02] LABS: Basophils # (A) 0.06 X 10*3/uL (0.00-0.10); Basophils % (A) 0.7 %; Eosinophils # (A) 0.11 X 10*3/uL (0.04-0.35); Eosinophils % (A) 1.3 %; HCT 36.3 % (37.2-46.3); HGB 11.3 g/dL (12.0-15.0); Lymphocytes # (A) 2.37 X 10*3/uL (0.90-5.00); Lymphocytes % (A) 27.1 %; MCHC 31.1 g/dL (32.0-37.0); MCV 83.6 FL (80.0-97.0); Monocytes # (A) 0.89 X 10*3/uL (0.20-1.00); Monocytes % (A) 10.2 %; NRBC Per 100 WBC 0 X 10*3/uL (0.00-0.01); Neutrophils # (A) 5.29 X 10*3/uL (1.80-7.70); Neutrophils % (A) 60.5 %; Platelet Count 166 X 10*3/uL (140-440); RBC 4.34 X 10*6/uL (4.10-5.20); RDW 19.1 % (11.5-14.5); WBC 8.74 X 10*3/uL (4.50-10.00)
[2024-02-10 09:07] LABS: BUN/Creat Ratio 16.33 Ratio (12.00-20.00); Blood Urea Nitrogen 9.8 mg/dL (9.0-27.0); Calcium 8.5 mg/dL (8.7-10.3); Carbon Dioxide 20.9 mmol/L (21.6-31.8); Chloride 109 mmol/L (96-109); Glucose 83 mg/dL (70-110); Potassium 3.3 mmol/L (3.5-5.5); Sodium 147 mmol/L (135-145)
[2024-02-10] MEDS: METOCLOPRAMIDE 5 MG/ML 2 ML VIAL IVP PRN (12:01)
--- NOTE | 2024-02-10 12:23 | P.CONS ---
History of Present Illness - Reason for Consult Consult date: 02/10/24 Nausea and vomiting Requesting physician: Ruby Chavez - Chief Complaint Abdominal pain and nausea and vomiting - History of Present Illness This is a 33-year-old female with a history of sleeve gastrectomy with Dr. Liu on December 20, 2023. Following procedure patient return to the emergency department 01/23/2024 with complaints of nausea vomiting and abdominal pain. She had a CT of the abdomen at that time and they were concerned for possible anastomotic leak and was transferred to [facility], where she underwent EGD with dilation. Patient reports she had been doing well up until last 3 days. Patient presented to the emergency room with complaints of nausea and vomiting over the last 3 days. She is currently on full liquid diet. She does report epigastric discomfort but feels that it is related to all of the vomiting. Patient has had about a 50 pound weight loss since surgery. Today's labs currently pending. Review of Systems REVIEW OF SYSTEMS: CARDIOPULMONARY: No chest pain or shortness of breath. Gastrointestinal: Abdominal pain, mostly in epigastric region. Nausea and vomiting. No hematemesis, coffee-ground emesis. No rectal bleeding, or melena. GENITOURINARY: No dysuria or hematuria. MUSCULOSKELETAL: Reports normal range of motion., Joint pain. SKIN: No rashes. No jaundice. ENDOCRINE: No chills, fevers. No excessive weight gain or loss. No polydipsia or polyuria. PSYCHIATRIC: Unremarkable. NEUROLOGY: No change in mental status. Denies dizziness, headache. ENT: Vision unremarkable. CONSTITUTIONAL: No recent weight loss. No fever, chills, night sweats. Past Medical History Past Medical History: GERD/Reflux, Sleep Apnea/CPAP/BIPAP Additional Past Medical History / Comment(s): iron defiency anemia, currently getting iron infusions, no cpap used History of Any Multi-Drug Resistant Organisms: None Reported Past Surgical History: Bariatric Surgery, Section, Cholecystectomy, Tubal Ligation, Uterine Ablation Additional Past Surgical History / Comment(s): 2008 AND 2015 (c/s) and 2010 (cholecyst). 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 Past Anesthesia/Blood Transfusion Reactions: No Reported Reaction Past Psychological History: Anxiety, Bipolar, Depression Smoking Status: Never smoker Past Alcohol Use History: None Reported - Past Family History Mother Family Medical History: Asthma, COPD, Diabetes Mellitus, Hypertension Additional Family Medical History / Comment(s): depression, anxiety, sleep apnea, Father Family Medical History: Hypertension Additional Family Medical History / Comment(s): arthritis Medications and Allergies Home Medications Medication Instructions Recorded Confirmed Type QUEtiapine [SEROquel] 100 mg PO HS 30 Days #30 tab 03/30/23 02/09/24 Rx buPROPion XL [Wellbutrin XL] 150 mg PO DAILY 30 Days #30 tab 03/30/23 02/09/24 Rx Levothyroxine Sodium 88 mcg PO DAILY 10/17/23 02/09/24 History Omeprazole [PriLOSEC] 40 mg PO DAILY #90 cap 12/22/23 02/09/24 Rx Ondansetron Odt [Zofran Odt] 4 mg PO Q8HR PRN #9 tab 12/22/23 02/09/24 Rx Budesonide/Formoterol Fumarate 2 puff INHALATION RT-BID 01/23/24 02/09/24 History [Symbicort 160-4.5 Mcg Inhaler] [place] Carbonate ER [Lithobid] 900 mg PO HS 01/23/24 02/09/24 History Tiotropium 2.5 Mcg/Puff [Spiriva 2 puff INHALATION RT-DAILY 01/23/24 02/09/24 History Respimat 2.5 Mcg] Topiramate [Topamax] 50 mg PO HS 01/23/24 02/09/24 History busPIRone HCl [Buspar] 10 mg PO BID 01/23/24 02/09/24 History traZODone HCL [Desyrel] 100 mg PO HS PRN 01/23/24 02/09/24 History Acetaminophen [Tylenol] 325 - 650 mg PO Q6H PRN 02/09/24 02/09/24 History Hyoscyamine Sulfate [Hyoscyamine 0.125 - 0.25 mg SL Q6H PRN 02/09/24 02/09/24 History Sulfate SL] methocarbamoL [Robaxin-750] 750 mg PO QID PRN 02/09/24 02/09/24 History Allergies Allergy/AdvReac Type Severity Reaction Status Date / Time latex Allergy Rash/Hives Verified 02/09/24 19:24 Physical Exam Vitals: Vital Signs Temp Pulse Resp BP Pulse Ox 02/10/24 06:39 93 18 112/73 97 02/10/24 04:21 96 18 106/72 99 02/10/24 01:21 90 16 104/77 96 02/09/24 20:38 108 H 18 132/88 100 02/09/24 15:57 98.4 F 113 H 16 110/87 87 L Intake and Output 02/09/24 02/09/24 02/10/24 14:59 22:59 06:59 Other: Weight 105.959 kg General appearance: The patient is alert, oriented, appears in no acute distress. HET: Head is normocephalic and atraumatic. Conjunctiva pink. Sclera anicteric. Neck: Supple without lymphadenopathy. Trachea midline. Heart: Regular. Lungs: Equal expansion, normal respiratory effort. Abdomen: Soft, epigastric tenderness, nondistended. Skin: No rashes. No jaundice. Extremities: Normal skin color and turgor. No pedal edema. Neurological: No focal deficits. Alert and oriented x3. Results CBC & Chem 7: 02/10/24 04:53 02/10/24 04:53 Labs: Abnormal Lab Results - Last 24 Hours (Table) 02/09/24 02/09/24 02/09/24 Range/Units 17:03 17:03 17:03 WBC 11.5 H (3.8-10.6) k/uL RBC 5.50 H (3.80-5.40) m/uL Hct 46.8 H (34.0-46.0) % RDW 18.0 H (11.5-15.5) % Neutrophils # 8.9 H (1.3-7.7) k/uL Glucose 101 H (74-99) mg/dL AST 76 H (14-36) U/L ALT 101 H (4-34) U/L Urine Appearance Turbid H (Clear) Urine Protein 2+ H (Negative) Urine Ketones 2+ H (Negative) Urine Blood Trace H (Negative) Urine Bilirubin 1+ H (Negative) Ur Leukocyte Esterase Trace H (Negative) Urine RBC 20 H (0-5) /hpf Urine WBC 73 H (0-5) /hpf Ur Squamous Epith Cells 37 H (0-4) /hpf Urine Bacteria Many H (None) /hpf Urine Mucus Many H (None) /hpf Assessment and Plan (1) Nausea and vomiting Narrative/Plan: 33-year-old female who underwent recent sleeve gastrectomy on December 20, [address] Liu who has been experiencing nausea vomiting and abdominal pain over the last 3 days duration. She had previous similar symptoms after her procedure and was seen in mid January at that time was transferred to [facility] and had an EGD with dilation. Patient states she feels likely this is the same cause of her symptoms at this time. Nausea and vomiting controlled at this t michelle. She is on antiemetics and IV fluids. Will defer further management to general surgery. Current Visit: Yes Status: Acute Code(s): R11.2 - NAUSEA WITH VOMITING, UNSPECIFIED SNOMED Code(s): 75725236 (2) S/P gastric sleeve procedure Current Visit: Yes Status: Acute Code(s): Z90.3 - ACQUIRED ABSENCE OF STOMACH [PART OF] SNOMED Code(s): 241318666941128 (3) Abdominal pain Current Visit: No Status: Acute Code(s): R10.9 - UNSPECIFIED ABDOMINAL PAIN SNOMED Code(s): 96307655 (4) Elevated LFTs Narrative/Plan: Unclear etiology of LFTs they have been mildly elevated since earlier this month. May be secondary to nausea vomiting, dehydration. Also need to consider some possible underlying fatty liver disease. No further workup at this time. Current Visit: Yes Status: Acute Code(s): R79.89 - OTHER SPECIFIED ABNORMAL FINDINGS OF BLOOD CHEMISTRY SNOMED Code(s): 072794950 Plan: 1. Continue symptomatic and supportive care 2. Continue antiemetics as needed 3. Will add Protonix 40 mg daily 5. Continue IV hydration 6. Diet per recommendations from general surgery 7. No further workup recommended from gastroenterology and no plans on endoscopic evaluation 8. Will defer management for nausea and vomiting and abdominal pain to general surgery 9. Rest of medical management per primary medical team Thank you for this consultation, we will sign off at this time. Dr. Roxanne Rascon I agree with the dictator's note, documented as a scribe by Madhavi Monzon.
[2024-02-10] MEDS ORDERED: traZODone HCL 100 MG TAB PO PRN (13:54)
[2024-02-10] MEDS: SYMBICORT 160-4.5 MCG INHALER INHALATION SCH (20:52)
[2024-02-10] MEDS: LITHIUM CARBONATE ER 450 MG TABLET.ER PO SCH (21:20)
[2024-02-10] MEDS: TOPIRAMATE 25 MG TAB PO SCH (21:20)
[2024-02-10] MEDS: busPIRone HCl 10 MG TAB PO SCH (21:21)
[2024-02-10] MEDS: QUEtiapine 100 MG TAB PO SCH (21:21)
--- NOTE | 2024-02-11 00:59 | CONS ---
CONSULTATION HISTORY OF PRESENT ILLNESS: This is a 33-year-old -[place] status post sleeve gastrectomy on 12/20/2023. Came in with nausea, vomiting, abdominal pain since then. CAT scan of the abdomen at that time was concerned for possible anastomotic leak and was transferred to [facility], where she underwent EGD with dilation. She has been doing well over the last 3 days until she came in with nausea or vomiting. She is on full liquid diet, epigastric pain related to the vomiting 50 pounds weight loss since surgery as mentioned above. FAMILY HISTORY: Mother COPD, diabetes mellitus, hypertension. Father hypertension. MEDICATIONS: 1. Synthroid 88 mg daily. 2. Prilosec 20 daily. 3. Seroquel 100 at night. 4. Wellbutrin XL 150 daily. 5. daily. 6. Symbicort inhaler 2 puffs b.i.d. 7. Topamax 50 daily. 8. Trazodone 100 mg p.r.n. 9. Levsin p.r.n. 10.Robaxin 750 q.i.d. p.r.n. PHYSICAL EXAMINATION: VITAL SIGNS: Pulse 90s, respiratory rate 16 to 18, blood pressure 100 to 112 over 70s to 60s. GENERAL: Obese white -[place] female. ABDOMEN: Soft, mild tenderness, normal bowel sounds. EXTREMITIES: 2+ edema. NEUROLOGIC: Cranial nerves intact. PSYCH: Fair mood and affect. NEUROLOGIC: Pupils equal, round, and reactive. LABORATORY DATA: Sodium 147, potassium 3.3, hemoglobin is 11.3, and white count 8.74. ASSESSMENT: Status post gastrectomy, nausea, vomiting after EGD with dilation was done. Nausea and vomiting are better with antiemetics. Elevated LFTs, possibly secondary to failed liver, nausea, vomiting, dehydration, asthma. Continue current home medicines. PROGNOSIS: Guarded. Please see further orders. MMODL / IJN: [id number] /
[2024-02-11] MEDS: LEVOTHYROXINE 88 MCG TAB PO SCH (06:02)
[2024-02-11] MEDS ORDERED: PANTOPRAZOLE 40 MG TABLET PO SCH (07:30)
[2024-02-11] MEDS: TIOTROPIUM 2.5 MCG INHALER INHALATION SCH (08:11)
--- NOTE | 2024-02-11 08:14 | PN ---
PROGRESS NOTE SUBJECTIVE: This is a 33-year-old -[place] female, intractable nausea and vomiting. She also possibly has UTI. We are going to start on Rocephin, do a urine culture. Replace her potassium and add potassium chloride 20 mEq daily as she has had low potassium for 2 days. OBJECTIVE: LUNGS: Clear. GI: Soft. HEMATOLOGY: Negative for Homans. Scheduled for esophageal dilation on Tuesday. PROGNOSIS: Guarded. Treat with broad-spectrum antibiotics. MMODL / IJN: [id number] /
[2024-02-11 08:16] LABS: Anisocytosis Slight; HCT 35.8 % (34.0-46.0); Hypochromasia Slight; MCH 26.9 pg (25.0-35.0); MCHC 31.2 g/dL (31.0-37.0); MCV 86.4 fL (80.0-100.0); Mean Platelet Volume 13.2; Platelet Count 161 k/uL (150-450); Poikilocytosis Slight; RBC 4.14 m/uL (3.80-5.40); RDW 17.9 % (11.5-15.5); WBC 12.7 k/uL (3.8-10.6)
[2024-02-11 08:22] LABS: HGB 11.2 gm/dL (11.4-16.0)
--- NOTE | 2024-02-11 08:44 | PN ---
PROGRESS NOTE SUBJECTIVE: Geneva Chavez came in with nausea and vomiting, possibly get an EGD with dilation on Tuesday again after bariatric surgery. There will be a second esophageal dilation on Tuesday. Nausea and vomiting are slowly improving. She is saturating 94 on room air. OBJECTIVE: VITAL SIGNS: Blood pressure is 119/83, pulse 84, respiratory rate 16 to 18, and temperature 97.5. CARDIOVASCULAR: S1, S2. LUNGS: Transmitted upper sounds. GI: Soft. Blood culture so far is negative. White count 8.74, and hemoglobin 11.3. LABORATORY DATA: Sodium 147, potassium 3.3, possibly will supplement her potassium every day. Continue with nausea, vomiting medicines. Continue home medications. Rehydrate the patient with IV fluids as she is dehydrated. Rule out UTI. Prognosis guarded. MMODL / IJN: [id number] /
[2024-02-11] MEDS: buPROPion XL 150 MG TAB.ER.24H PO SCH (09:27)
--- NOTE | 2024-02-11 11:02 | P.PN ---
Subjective Progress Note Date: 02/11/24 NAEON. No N/V. No F/C. Admits to mild reflux symptoms and epigastric pain. No melena or hematochezia. Endorses flatus. Ambulatory and voiding. Objective - Vital Signs Vital signs: Vital Signs Temp 97.8 F 02/11/24 07:08 Pulse 75 02/11/24 09:28 Resp 18 02/11/24 09:28 BP 113/76 02/11/24 07:08 Pulse Ox 97 02/11/24 07:08 FiO2 Intake & Output 02/10/24 02/11/24 02/11/24 18:59 06:59 18:59 Intake Total 240 480 Balance 240 480 Weight 105.959 kg Intake: Oral 240 480 Other: # Voids 1 1 - Exam Gen: AxO, NAD Pulm: non-labored respirations Abd: soft, minimally tender in epigastrium. Non-distended Extrem; no edema seen - Labs CBC & Chem 7: 02/11/24 07:30 02/10/24 04:53 Labs: Abnormal Lab Results - Last 24 Hours (Table) 02/11/24 Range/Units 07:30 WBC 12.7 H (3.8-10.6) k/uL Hgb 11.2 L D (11.4-16.0) gm/dL RDW 17.9 H (11.5-15.5) % Microbiology - Last 24 Hours (Table) 02/09/24 21:05 Blood Culture - Preliminary Blood 02/09/24 21:00 Blood Culture - Preliminary Blood Assessment and Plan Assessment: Patient is a 33F who presents with epigastric pain and dysphagia. Plan: -CLD as tolerated -PRN pain and nausea control -IV PPI -Encourage ambulation -Care per primary -Plan for EGD on Tuesday Mp Holt MD General Surgery
[2024-02-11] MEDS: POTASSIUM CHLORIDE ER 20 MEQ TAB.ER PO SCH (11:55)
[2024-02-11] MEDS: traZODone HCL 100 MG TAB PO PRN (22:44)
--- NOTE | 2024-02-12 12:51 | P.PN ---
Subjective Progress Note Date: 02/12/24 patient states he feels better. She's been tolerating some clear liquids. On exam vital signs are stable. Abdomen soft. Post operative dysphagia related to sleeve edema. Patient undergo EGD with possible dilation and the antrum. Objective - Vital Signs Vital signs: Vital Signs Temp 98.1 F 02/12/24 07:30 Pulse 80 02/12/24 08:10 Resp 17 02/12/24 08:10 BP 138/88 02/12/24 07:30 Pulse Ox 98 02/12/24 07:30 FiO2 Intake & Output 02/11/24 02/12/24 02/12/24 18:59 06:59 18:59 Other: # Voids 4 6 - Labs CBC & Chem 7: 02/11/24 07:30 02/10/24 04:53 Labs: Microbiology - Last 24 Hours (Table) 02/09/24 21:05 Blood Culture - Preliminary Blood 02/09/24 21:00 Blood Culture - Preliminary Blood
--- NOTE | 2024-02-12 12:56 | PN ---
PROGRESS NOTE SUBJECTIVE: Geneva Chavez had some nausea overnight. We gave her some nausea medication. She is on Protonix, Zofran. She is on her thyroid, lithium for bipolar. She is on her asthma medications. She is doing better. OBJECTIVE: VITAL SIGNS: Blood pressure is 111 to 138 over 88, O2 of 98% on room air, temp 98.1, pulse 80, respiratory rate 17. ABDOMEN: Soft. CARDIOVASCULAR: S1, S2. LUNGS: Clear. PSYCH: Fair mood and affect. VITAL SIGNS: Reviewed. She is going to get progressive nausea, vomiting. She is going to get a barium EGD tomorrow and possibly a dilation of the esophagus, status post gastric sleeve procedure for esophageal stenosis. Scopes can be done tomorrow. Prognosis guarded. Keep on clears and a nausea medicine. MMODL / IJN: [id number] /
[2024-02-12] MEDS: LACTULOSE 20 GM/30 ML CUP PO SCH (15:21)
[2024-02-12] MEDS ORDERED: ACETAMINOPHEN TAB 500 MG TAB PO PRN (23:49)
[2024-02-13 06:57] LABS: ALT 162 U/L (4-34); AST 82 U/L (14-36); African American GFR (CKD) >90 (>60 ml/min/1.73 sqM); Albumin 3.3 g/dL (3.5-5.0); Albumin/Globulin Ratio 1.2; Alkaline Phosphatase 82 U/L (38-126); Anion Gap 9 mmol/L; Blood Urea Nitrogen 6 mg/dL (7-17); Calcium 8.6 mg/dL (8.4-10.2); Carbon Dioxide 23 mmol/L (22-30); Chloride 110 mmol/L (98-107); Globulin 2.7 g/dL; Glucose 113 mg/dL (74-99); Non-African American GFR(CKD) >90 (>60 ml/min/1.73 sqM); Potassium 3.6 mmol/L (3.5-5.1); Sodium 142 mmol/L (137-145); Total Bilirubin 0.8 mg/dL (0.2-1.3)
[2024-02-13 08:24] LABS: Glucose,Whole Blood 159 mg/dL (70-110)
[2024-02-13 08:46] LABS: Basophils # (A) 0.03 X 10*3/uL (0.00-0.10); Basophils % (A) 0.2 %; Eosinophils # (A) 0 X 10*3/uL (0.04-0.35); Eosinophils % (A) 0 %; HCT 34.3 % (37.2-46.3); HGB 11.1 g/dL (12.0-15.0); Lymphocytes # (A) 1.86 X 10*3/uL (0.90-5.00); Lymphocytes % (A) 11.8 %; MCH 26.2 pg (27.0-32.0); MCHC 32.4 g/dL (32.0-37.0); MCV 81.1 FL (80.0-97.0); Monocytes # (A) 0.76 X 10*3/uL (0.20-1.00); Monocytes % (A) 4.8 %; NRBC Per 100 WBC 0 X 10*3/uL (0.00-0.01); Neutrophils # (A) 12.83 X 10*3/uL (1.80-7.70); Neutrophils % (A) 81.8 %; Platelet Count 205 X 10*3/uL (140-440); RBC 4.23 X 10*6/uL (4.10-5.20); RDW 19.6 % (11.5-14.5)
[2024-02-13] MEDS: METOPROLOL TARTRATE 5 MG/5 ML VIAL IVP STA (09:18)
[2024-02-13] MEDS: CISATRACURIUM 2 MG/ML 5 ML VIAL IV ONE (09:28)
--- NOTE | 2024-02-13 09:38 | PCN ---
PROCEDURE NOTE PROCEDURE PERFORMED: Left internal jugular triple-lumen catheter. PREOPERATIVE DIAGNOSIS: Administration of fluids and pressors. POSTOPERATIVE DIAGNOSIS: Administration of fluids and pressors. There was informed consent and universal timeout. The patient's procedure took place in room 259 ICU. TRADE EMBALMER: Dr. Sung. FIRST CUTTER GRINDER: Dr. Miri Mckeon. DESCRIPTION OF PROCEDURE: We used the internal jugular vein on the left side. We did the posterior approach. There was good blood return from all 3 ports. The patient tolerated the procedure well. The catheter was sutured in place. Sterile dressing was applied by the nurse without immediate complication. A chest x-ray was ordered. Tip of the catheter was seen at the junction of the superior vena cava and right atrium. MMODL / IJN: [id number] /
[2024-02-13 09:50] LABS: ABG Base Excess -7.9 mmol/L; ABG HCO3 19 mmol/L (21-25); ABG Oxygen Saturation 99.9 % (94-97); ABG PCO2 41 mmHg (35-45); ABG PH 7.27 (7.35-7.45); ABG PO2 263 mmHg (83-108); Allen Test Performed? Yes
--- NOTE | 2024-02-13 09:50 | PCN ---
PROCEDURE NOTE PROCEDURE PERFORMED: Placement of an arterial line. PREOPERATIVE DIAGNOSIS: Frequent blood loss and blood gas monitoring. POSTOPERATIVE DIAGNOSIS: Frequent blood loss and blood gas monitoring. CERTIFED REFRIGERATION OPERATOR: Dr. Sung. PAINTING CONTRACTOR: Dr. Miri Mckeon. There was informed consent and universal timeout. The patient's procedure was done in room 259. DESCRIPTION OF PROCEDURE: We used the right femoral artery. There was good waveform and blood pressure reading. The catheter was sutured in place. Sterile dressing was applied by the nurse. There was no immediate complication. The patient tolerated the procedure well. MMODL / IJN: [id number] / MTDD
[2024-02-13] MEDS: CLEVIDIPINE BUTYRATE 25 MG in EMPTY BAG 1 BAG IV SCH (09:52)
[2024-02-13 09:56] LABS: African American GFR (CKD) >90 (>60 ml/min/1.73 sqM); Anion Gap 19 mmol/L; Blood Urea Nitrogen 6 mg/dL (7-17); Calcium 8.6 mg/dL (8.4-10.2); Carbon Dioxide 16 mmol/L (22-30); Chloride 110 mmol/L (98-107); Glucose 215 mg/dL (74-99); Magnesium 1.3 mg/dL (1.6-2.3); Non-African American GFR(CKD) >90 (>60 ml/min/1.73 sqM); Potassium 3.2 mmol/L (3.5-5.1); Sodium 145 mmol/L (137-145)
[2024-02-13 09:58] LABS: Anisocytosis Slight; Basophils % (A) 0 %; Eosinophils # (A) 0.1 k/uL (0-0.7); Eosinophils % (A) 0 %; HCT 38.8 % (34.0-46.0); HGB 11.8 gm/dL (11.4-16.0); Hypochromasia Moderate; Lymphocytes % (A) 9 %; MCH 26.6 pg (25.0-35.0); MCHC 30.3 g/dL (31.0-37.0); MCV 87.7 fL (80.0-100.0); Mean Platelet Volume 13.8; Monocytes # (A) 1.5 k/uL (0-1.0); Monocytes % (A) 6 %; Neutrophils # (A) 18.8 k/uL (1.3-7.7); Neutrophils % (A) 83 %; Platelet Count 261 k/uL (150-450); Poikilocytosis Slight; RBC 4.43 m/uL (3.80-5.40); WBC 22.6 k/uL (3.8-10.6)
[2024-02-13] MEDS: HYDROmorphone 1 MG/ML 1 ML SYRINGE IVP PRN (10:15)
[2024-02-13] MEDS: SODIUM CHLORIDE 0.9% 1,000 ML IV SCH (10:17)
--- NOTE | 2024-02-13 10:25 | XR ---
EXAMINATION TYPE: XR chest 1V portable DATE OF EXAM: 02/13/2024 9:58 AM CLINICAL INDICATION:Female, 33 years old with history of Tube placement; COMPARISON: Chest radiographs from 07/28/2021 TECHNIQUE: XR chest 1V portable Frontal view of the chest. FINDINGS: Lungs/Pleura: Low lung volumes are present. There is no evidence of pleural effusion, focal consolida tion, or pneumothorax. Pulmonary vascularity: Unremarkable. Heart/mediastinum: Cardiomediastinal silhouette is unremarkable. Musculoskeletal: No acute osseous pathology. Other findings: None Lines/Tubes: Endotracheal tube in the right main bronchus. Nasogastric tube with its distal tip and side-port projecting under the diaphragm. IMPRESSION: Endotracheal tube in the right main bronchus retraction of 4 cm recommended for optimal placement.
--- NOTE | 2024-02-13 10:26 | XR ---
EXAMINATION TYPE: XR chest 1V portable DATE OF EXAM: 02/13/2024 10:00 AM CLINICAL INDICATION:Female, 33 years old with history of central line placement; COMPARISON: Chest radiographs from 02/13/2024 TECHNIQUE: XR chest 1V portable Frontal view of the chest. FINDINGS: Lungs/Pleura: There is no evidence of pleural effusion, focal consolidation, or pneumothorax. Pulmonary vascularity: Unremarkable. Heart/mediastinum: Cardiomediastinal silhouette is unremarkable. Musculoskeletal: No acute osseous pathology. Other findings: Upper abdominal surgical clips. Lines/Tubes: Endotracheal tube with distal tip 2.3 cm above the claudio. Nasogastric tube with its distal tip and side-port projecting under the diaphragm. Left internal jugular central venous catheter with distal tip at the cavoatrial junction. IMPRESSION: 1. Endotracheal tube now in appropriate position. 2. No acute cardiopulmonary disease/process.
[2024-02-13] MEDS ORDERED: Potassium Replacement Protocol 1 EACH MISC MISCELLANE PRN (10:41)
[2024-02-13] MEDS ORDERED: Magnesium Replacement Protocol 1 EACH MISC MISCELLANE PRN (10:41)
[2024-02-13 11:45] LABS: Appearance,Urine Clear (Clear); Bilirubin,Urine Negative (Negative); Blood,Urine Negative (Negative); Color,Urine Colorless; Glucose,Urine (UA) 1+ (Negative); Ketones,Urine Trace (Negative); Leukocyte Esterase,Urine Negative (Negative); Nitrite,Urine Negative (Negative); Protein,Urine Trace (Negative); Urobilinogen,Urine <2.0 mg/dL (<2.0)
[2024-02-13 11:53] LABS: Large Platelets Present
--- NOTE | 2024-02-13 12:39 | P.CNPUL ---
History of Present Illness Consult date: 02/13/24 Requesting physician: Rogelio Liu Chief complaint: Impending respiratory arrest. History of present illness: Pulmonary consult dated February 13, 2024. This is a 33-year-old female with a history of gastric sleeve procedure on December [address] Liu, who presents to the emergency department, on February 08, complaining of abdominal pain. The patient was seen earlier in January, for abdominal pain, and a CT found a possible anastomotic leak, and she was sent down to [facility]. Apparently at [facility], she had a EGD, with dilatation. She went home and was able to eat after the fifth day. Over the last 3 days, prior to this admission, she was unable to hold down any water. She does have epigastric abdominal pain. She denies any fever or chills. A rapid response was called on this patient, earlier today, February 12, and with my charge nurse from the ICU went up to the room, the patient was thrashing about, was very incoherent, was breathing 30-40 times a minute, and had a heart rate of 180 bpm. For that reason, we transferred the patient down to the intensive care unit, for further monitoring and management, and, the patient eventually required intubation and mechanical ventilation. That was done by the nurse oracle specialist. When I got down to the intensive care unit, I placed a left internal jugular triple-lumen catheter, and a right femoral arterial line, for further management and monitoring. Patient has a history of gastroesophageal reflux disease, obstructive sleep apnea syndrome, iron deficiency anemia, recent gastric sleeve procedure, hypothyroidism, and possible COPD and that she is on Symbicort, Spiriva, and albuterol, as outpatient medications. Count is 22.6, hemoglobin 11.8, hematocrit 38.8, and platelet count 261,000. Blood gases after intubation show pO2 of 263, pCO2 of 41, pH is 7.27. Sodium 145, potassium 3.2, chlorides 110, CO2 16, anion gap 19, BUN 6, creatinine 0.74. Glucose is 215. Magnesium 1.3, calcium is 8.6. We did ask for lithium level. Urine is negativ e. Thus far urine and blood sampling is negative. It shows I properly placed endotracheal tube, and the tip of the central line, in the area of the right atrium/superior vena cava junction. Review of Systems REVIEW OF SYSTEMS: CONSTITUTIONAL: [Negative.] NEUROLOGIC: [ Negative.] HEENT: [ Negative.] CARDIAC: [Negative.] PULMONARY: [Negative.] GI: Initially presented to the ER with abdominal pain. : [Negative.] RHEUMATOLOGIC: [ Negative.] IMMUNOLOGIC: [ Negative.] ENDOCRINE: [Negative. ] DERMATOLOGIC: [Negative.] Past Medical History Past Medical History: GERD/Reflux, Sleep Apnea/CPAP/BIPAP Additional Past Medical History / Comment(s): iron defiency anemia, used to get iron infusions no cpap used, migraines History of Any Multi-Drug Resistant Organisms: None Reported Past Surgical History: Bariatric Surgery, Section, Cholecystectomy, Coronary Bypass/CABG, Tubal Ligation, Uterine Ablation Additional Past Surgical History / Comment(s): 2008 AND 2015 (c/s) and 2010 (cholecyst). 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 EGD and dilation 01/24 Past Anesthesia/Blood Transfusion Reactions: No Reported Reaction Past Psychological History: Anxiety, Bipolar, Depression Additional Psychological History / Comment(s): 06/21/19: Pt taking Celexa 5mg and Buspar 15mg daily Smoking Status: Never smoker Past Alcohol Use History: None Reported Additional Past Alcohol Use History / Comment(s): Pt. states she quit smoking cigarettes but she does vape occasionaly, not regularly for the last year Past Drug Use History: None Reported - Past Family History Mother Family Medical History: Asthma, COPD, Diabetes Mellitus, Hypertension Additional Family Medical History / Comment(s): depression, anxiety, sleep apnea, Father Family Medical History: Hypertension Additional Family Medical History / Comment(s): arthritis Medications and Allergies Home Medications Medication Instructions Recorded Confirmed Type QUEtiapine [SEROquel] 100 mg PO HS 30 Days #30 tab 03/30/23 02/09/24 Rx buPROPion XL [Wellbutrin XL] 150 mg PO DAILY 30 Days #30 tab 03/30/23 02/09/24 Rx Levothyroxine Sodium 88 mcg PO DAILY 10/17/23 02/09/24 History Omeprazole [PriLOSEC] 40 mg PO DAILY #90 cap 12/22/23 02/09/24 Rx Ondansetron Odt [Zofran Odt] 4 mg PO Q8HR PRN #9 tab 12/22/23 02/09/24 Rx Budesonide/Formoterol Fumarate 2 puff INHALATION RT-BID 01/23/24 02/09/24 History [Symbicort 160-4.5 Mcg Inhaler] [place] Carbonate ER [Lithobid] 900 mg PO HS 01/23/24 02/09/24 History Tiotropium 2.5 Mcg/Puff [Spiriva 2 puff INHALATION RT-DAILY 01/23/24 02/09/24 History Respimat 2.5 Mcg] Topiramate [Topamax] 50 mg PO HS 01/23/24 02/09/24 History busPIRone HCl [Buspar] 10 mg PO BID 01/23/24 02/09/24 History traZODone HCL [Desyrel] 100 mg PO HS PRN 01/23/24 02/09/24 History Acetaminophen [Tylenol] 325 - 650 mg PO Q6H PRN 02/09/24 02/09/24 History Hyoscyamine Sulfate [Hyoscyamine 0.125 - 0.25 mg SL Q6H PRN 02/09/24 02/09/24 History Sulfate SL] methocarbamoL [Robaxin-750] 750 mg PO QID PRN 02/09/24 02/09/24 History Allergies Allergy/AdvReac Type Severity Reaction Status Date / Time latex Allergy Rash/Hives Verified 02/09/24 19:24 Physical Exam Osteopathic Statement: *. No significant issues noted on an osteopathic structural exam other than those noted in the History and Physical/Consult. Vitals: Vital Signs Temp Pulse Pulse Resp BP BP Pulse Ox 02/13/24 12:00 98.0 F 68 19 105/74 100 02/13/24 11:45 66 20 102/70 100 02/13/24 11:30 68 20 106/73 100 02/13/24 11:15 82 16 106/66 100 02/13/24 11:03 02/13/24 11:00 101 H 20 116/74 99 02/13/24 10:45 93 15 105/61 97 02/13/24 10:30 98 20 126/75 94 L 02/13/24 10:15 161 H 24 152/106 100 02/13/24 10:00 129 H 20 156/104 93 L 02/13/24 09:55 02/13/24 09:45 123 H 24 161/108 98 02/13/24 09:30 141 H 20 153/92 93 L 02/13/24 09:15 151 H 24 158/96 99 02/13/24 09:00 99.1 F 160 H 20 159/102 98 02/13/24 08:45 170 H 12 147/93 97 02/13/24 08:38 02/13/24 08:33 02/13/24 08:30 179 H 68 H 94 L 02/13/24 08:27 184 H 44 H 02/13/24 07:49 97.8 F 68 15 175/93 97 02/13/24 07:38 55 L 145/90 02/13/24 01:10 98.3 F 69 16 157/91 95 02/12/24 19:01 98.3 F 51 L 18 159/89 98 02/12/24 14:00 98.7 F 80 17 132/75 97 FiO2 02/13/24 12:00 40 02/13/24 11:45 02/13/24 11:30 02/13/24 11:15 02/13/24 11:03 40 02/13/24 11:00 02/13/24 10:45 02/13/24 10:30 02/13/24 10:15 02/13/24 10:00 02/13/24 09:55 40 02/13/24 09:45 02/13/24 09:30 02/13/24 09:15 02/13/24 09:00 02/13/24 08:45 100 02/13/24 08:38 100 02/13/24 08:33 100 02/13/24 08:30 02/13/24 08:27 02/13/24 07:49 02/13/24 07:38 02/13/24 01:10 02/12/24 19:01 02/12/24 14:00 Intake and Output 02/12/24 02/13/24 02/13/24 22:59 06:59 14:59 Intake Total 340.417 Output Total 825 Balance -484.583 Intake: IV 300 Sodium Chloride 0.9% 1, 300 000 ml @ 75 mls/hr IV . [id number] [facility] Rx#:[id number] Intake, IV Titration 40.417 Amount Clevidipine Butyrate 25 1.000 mg In Empty Bag 1 bag @ 1 MG/HR 2 mls/hr IV .Q24H [facility] Rx#:[id number] propofoL 1,000 mg In 39.417 Empty Bag 1 bag @ 15 MCG/ KG/MIN 9.536 mls/hr IV . [id number] [facility] Rx#:[id number] Output: Urine 825 Other: # Voids 5 5 # Bowel Movements 1 ABP, PAP, CO, CI - Last 8 Hours Arterial Blood Pressure 130/81 Arterial Blood Pressure 130/79 Arterial Blood Pressure 128/75 Arterial Blood Pressure 133/78 Arterial Blood Pressure 128/73 Arterial Blood Pressure 124/68 Arterial Blood Pressure 106/57 Arterial Blood Pressure 169/82 Arterial Blood Pressure 199/109 Arterial Blood Pressure 192/106 No acute distress, patient with propofol, with an orally placed endotracheal tube, and NG tube. HEENT examination is grossly unremarkable. Neck supple. Full range of motion. No adenopathy thyromegaly or neck vein distention. Cardiovascular examination reveals regular rhythm rate. S1-S2 normal. No S3 or S4. No discernible murmur noted. Heart rate 82 bpm. Lungs reveal scattered rhonchi. No wheezes or crackles. Breath sounds equal bilaterally. Saturations are 100%. Abdomen obese, soft, without bowel sounds. No masses. Extremities are intact. No cyanosis clubbing or edema. Skin is without rash or lesion. Neurologic examination cannot be assessed at this time. Results - Laboratory Findings CBC and BMP: 02/13/24 09:38 02/13/24 09:38 ABG ABG pH 7.27 (7.35-7.45) L 02/13/24 09:43 ABG pCO2 41 mmHg (35-45) 02/13/24 09:43 ABG pO2 263 mmHg (83-108) H 02/13/24 09:43 ABG O2 Saturation 99.9 % (94-97) H 02/13/24 09:43 Abnormal lab findings: Abnormal Labs 02/09/24 02/09/24 02/09/24 17:03 17:03 17:03 WBC 11.5 H RBC 5.50 H Hgb Hct 46.8 H MCH MCHC RDW 18.0 H Immature Gran # Neutrophils # 8.9 H Monocytes # Eosinophils # ABG pH ABG pO2 ABG HCO3 ABG O2 Saturation Sodium Potassium Chloride Carbon Dioxide Anion Gap BUN Glucose 101 H POC Glucose (mg/dL) Calcium Magnesium AST 76 H ALT 101 H Total Protein Albumin Urine Appearance Turbid H Urine Protein 2+ H Urine Glucose (UA) Urine Ketones 2+ H Urine Blood Trace H Urine Bilirubin 1+ H Ur Leukocyte Esterase Trace H Urine RBC 20 H Urine WBC 73 H Ur Squamous Epith Cells 37 H Urine Bacteria Many H Urine Mucus Many H 02/10/24 02/10/24 02/11/24 04:53 04:53 07:30 WBC 12.7 H RBC Hgb 11.3 L 11.2 L D Hct 36.3 L MCH 26.0 L MCHC 31.1 L RDW 19.1 H 17.9 H Immature Gran # Neutrophils # Monocytes # Eosinophils # ABG pH ABG pO2 ABG HCO3 ABG O2 Saturation Sodium 147 H Potassium 3.3 L Chloride Carbon Dioxide 20.9 L Anion Gap 17.10 H BUN Glucose POC Glucose (mg/dL) Calcium 8.5 L Magnesium AST ALT Total Protein Albumin Urine Appearance Urine Protein Urine Glucose (UA) Urine Ketones Urine Blood Urine Bilirubin Ur Leukocyte Esterase Urine RBC Urine WBC Ur Squamous Epith Cells Urine Bacteria Urine Mucus 02/13/24 02/13/24 02/13/24 06:10 06:10 08:11 WBC 15.70 H RBC Hgb 11.1 L Hct 34.3 L MCH 26.2 L MCHC RDW 19.6 H Immature Gran # 0.22 H Neutrophils # 12.83 H Monocytes # Eosinophils # 0 L ABG pH ABG pO2 ABG HCO3 ABG O2 Saturation Sodium Potassium Chloride 110 H Carbon Dioxide Anion Gap BUN 6 L Glucose 113 H POC Glucose (mg/dL) 159 H Calcium Magnesium AST 82 H ALT 162 H Total Protein 6.0 L Albumin 3.3 L Urine Appearance Urine Protein Urine Glucose (UA) Urine Ketones Urine Blood Urine Bilirubin Ur Leukocyte Esterase Urine RBC Urine WBC Ur Squamous Epith Cells Urine Bacteria Urine Mucus 02/13/24 02/13/24 02/13/24 09:38 09:38 09:43 WBC 22.6 H RBC Hgb Hct MCH MCHC 30.3 L RDW 18.0 H Immature Gran # Neutrophils # 18.8 H Monocytes # 1.5 H Eosinophils # ABG pH 7.27 L ABG pO2 263 H ABG HCO3 19 L ABG O2 Saturation 99.9 H Sodium Potassium 3.2 L Chloride 110 H Carbon Dioxide 16 L Anion Gap BUN 6 L Glucose 215 H POC Glucose (mg/dL) Calcium Magnesium 1.3 L AST ALT Total Protein Albumin Urine Appearance Urine Protein Urine Glucose (UA) Urine Ketones Urine Blood Urine Bilirubin Ur Leukocyte Esterase Urine RBC Urine WBC Ur Squamous Epith Cells Urine Bacteria Urine Mucus 02/13/24 10:54 WBC RBC Hgb Hct MCH MCHC RDW Immature Gran # Neutrophils # Monocytes # Eosinophils # ABG pH ABG pO2 ABG HCO3 ABG O2 Saturation Sodium Potassium Chloride Carbon Dioxide Anion Gap BUN Glucose POC Glucose (mg/dL) Calcium Magnesium AST ALT Total Protein Albumin Urine Appearance Urine Protein Trace H Urine Glucose (UA) 1+ H Urine Ketones Trace H Urine Blood Urine Bilirubin Ur Leukocyte Esterase Urine RBC Urine WBC Ur Squamous Epith Cells Urine Bacteria Urine Mucus - Diagnostic Findings Chest x-ray: image reviewed Assessment and Plan Assessment: Acute deterioration, with mental status changes, hypertension, tachycardia, and tachypnea, with impending respiratory arrest, S/P intubation and mechanical ventilation, on February 13, 2024. Obesity, status post gastric sleeve procedure, December 20, 2023. Recent evaluation at [facility], status post EGD, with dilatation. Hypothyroidism. Possible underlying asthma based on the patient's outpatient medications. History of gastroesophageal reflux disease. History of sleep apnea syndrome. History of iron deficiency anemia. History of anxiety/depression, and bipolar disorder. Plan: Plan dated February 13, 2024. The patient apparently had an acute/abrupt change, and her clinical status, with mental status changes, tachycardia, hypertension, tachypnea, and impending respiratory failure. The patient was transferred down to the intensive care unit, and intubated by the DELICATESSEN CLERK. We placed a right femoral arterial line, and a left internal jugular triple-lumen catheter, for better monitoring and management. Not sure exactly what happened to this patient. Her lithium level was quite low. The patient recently had a gastric sleeve procedure on December 19, and, was seen on the , for possible anastomotic leak, and transferred down to [facility], where she had an EGD, with dilatation. The patient was to have an EGD with dilatation today, but obviously, because of her acute deterioration, that was not done. We will continue to follow make recommendations along the way. Labs, x-rays, and medications are reviewed. Prognosis is guarded. We will continue to follow make recommendations along the way. Time with Patient: Greater than 30
[2024-02-13] MEDS: MAGNESIUM SULFATE-D5W PMX 1 GM in DEXTROSE/WATER 1 100ML.BAG IVPB SCH (13:50)
[2024-02-13] MEDS: POTASSIUM CHLORIDE 20 MEQ in WATER FOR INJECTION 1 100ML.BAG IVPB SCH (13:50)
--- NOTE | 2024-02-13 14:32 | P.PN ---
Subjective Progress Note Date: 02/13/24 This is a 33-year-old female with a history of sleeve gastrectomy with Dr. Liu on December 19. Patient presented to the emergency room with complaints of nausea and vomiting over the last 3 days. Patient was seen at [facility] earlier this month and had EGD with dilation. Patient reports she had been doing well up until last 3 days. She does report epigastric discomfort but feels that it is related to all of the vomiting. Patient has had about a 50 pound weight loss since surgery. Patient was mildly tachycardic on admission with evidence of dehydration 02/12. Patient seen and examined. Dr. Yaakov huston for Dr. Molina. Patient had a rapid response called called this morning, was found to be incoherent, patient was intubated and was transferred to ICU REVIEW OF SYSTEMS: Currently intubated and sedated PHYSICAL EXAMINATION: GENERAL: The patient is intubated HEENT: Pupils are round and equally reacting to light. CARDIOVASCULAR: S1 and S2 present. No murmurs, rubs, or gallops. PULMONARY: Chest is clear to auscultation, no wheezing or crackles. ABDOMEN: Soft, nontender, nondistended, normoactive bowel sounds. No palpable organomegaly. MUSCULOSKELETAL: No joint swelling or deformity. EXTREMITIES: No cyanosis, clubbing, or pedal edema. NEUROLOGICAL: Intubated SKIN: No rashes. Assessment and plan Metabolic encephalopathy acute hypoxic respiratory failure requiring intubation and mechanical ventilation Uncontrolled hypertension Hypothyroidism Dysphagia likely related to scarring from sleeve gastrectomy surgery. Dehydration Acute transaminitis Monitor vital signs Monitor CBC Monitor CMP Continue telemetry monitoring Continue vent management per ICU CT head ordered Continue IV fluid Continue antiemetics Neurology consulted Critical care following Labs and medication were reviewed.. Continue same treatment. Continue with symptomatic treatment. Resume home medication. Monitor labs and vitals. DVT and GI prophylaxis. Further recommendations as per clinical course of the patient Dictation was produced using [employer] dictation software. please excuse any grammatical, word or spelling errors. Objective - Vital Signs Vital signs: Vital Signs Temp 97.8 F 02/13/24 07:49 Pulse 68 02/13/24 07:49 Resp 15 02/13/24 07:49 BP 175/93 02/13/24 07:49 Pulse Ox 97 02/13/24 07:49 FiO2 100 02/13/24 08:38 Intake & Output 02/12/24 02/13/24 02/13/24 18:59 06:59 18:59 Other: # Voids 5 5 # Bowel Movements 1 - Labs CBC & Chem 7: 02/13/24 09:38 02/13/24 09:38 Labs: Abnormal Lab Results - Last 24 Hours (Table) 02/13/24 02/13/24 02/13/24 Range/Units 06:10 06:10 08:11 WBC 15.70 H (4.50-10.00) X 10*3/uL Hgb 11.1 L (12.0-15.0) g/dL Hct 34.3 L (37.2-46.3) % MCH 26.2 L (27.0-32.0) pg RDW 19.6 H (11.5-14.5) % Immature Gran # 0.22 H (0.00-0.04) X 10*3/uL Neutrophils # 12.83 H (1.80-7.70) X 10*3/uL Eosinophils # 0 L (0.04-0.35) X 10*3/uL Chloride 110 H (98-107) mmol/L BUN 6 L (7-17) mg/dL Glucose 113 H (74-99) mg/dL POC Glucose (mg/dL) 159 H (70-110) mg/dL AST 82 H (14-36) U/L ALT 162 H (4-34) U/L Total Protein 6.0 L (6.3-8.2) g/dL Albumin 3.3 L (3.5-5.0) g/dL Microbiology - Last 24 Hours (Table) 02/11/24 22:42 Urine Culture - Final Urine,Voided 02/09/24 21:05 Blood Culture - Preliminary Blood 02/09/24 21:00 Blood Culture - Preliminary Blood
[2024-02-13] MEDS: CHLORHEXIDINE GLUCONATE 15 ML CUP MUCOUS MEM SCH (15:31)
--- NOTE | 2024-02-13 17:31 | P.PN ---
Subjective Progress Note Date: 02/13/24 Principal diagnosis: dysphagia related to gastric sleeve scarring patient was seen at 10:30 AM the patient had an event this morning. She apparently was found obtunded in her room. The patient was hypertensive and tachypnea. The patient was nonverbal. She was transferred to the ICU and intubatedin had central lines placed. The patient had an acute change from yesterday. The patient yesterday was feeling well. the patient had no significant abdominal pain yesterday. She had complaints of constipation. She was she is scheduled for EGD with possible dilation of her gastric sleeve today.per the nursing staff patient was encephalopathic prior to being intubated. Objective - Vital Signs Vital signs: Vital Signs Temp 98.0 F 02/13/24 12:00 Pulse 68 02/13/24 12:00 Resp 19 02/13/24 12:00 BP 105/74 02/13/24 12:00 Pulse Ox 100 02/13/24 12:00 FiO2 100 02/13/24 15:51 Intake & Output 02/12/24 02/13/24 02/13/24 18:59 06:59 18:59 Intake Total 553.100 Output Total 1525 Balance -971.900 Intake: IV 450 Sodium Chloride 0.9% 1, 450 000 ml @ 75 mls/hr IV . [id number] [facility] Rx#:[id number] Intake, IV Titration 103.100 Amount Clevidipine Butyrate 25 3.100 mg In Empty Bag 1 bag @ 1 MG/HR 2 mls/hr IV .Q24H [facility] Rx#:[id number] propofoL 1,000 mg In 100.000 Empty Bag 1 bag @ 15 MCG/ KG/MIN 9.536 mls/hr IV . [id number] [facility] Rx#:[id number] Output: Urine 1525 Other: Voiding Method Indwelling Catheter # Voids 5 5 # Bowel Movements 1 ABP, PAP, CO, CI - Last Documented Arterial Blood Pressure 130/81 - Constitutional Constitutional Comment(s): patient is intubated on the ventilator. - EENT Eyes: Present: fundus normal - Respiratory Respiratory: left: CTA - Gastrointestinal Gastrointestinal Comment(s): abdomen is soft, nondistended - Labs CBC & Chem 7: 02/13/24 09:38 02/13/24 09:38 Labs: Abnormal Lab Results - Last 24 Hours (Table) 02/13/24 02/13/24 02/13/24 Range/Units 06:10 06:10 08:11 WBC 15.70 H (4.50-10.00) X 10*3/uL Hgb 11.1 L (12.0-15.0) g/dL Hct 34.3 L (37.2-46.3) % MCH 26.2 L (27.0-32.0) pg MCHC (31.0-37.0) g/dL RDW 19.6 H (11.5-14.5) % Immature Gran # 0.22 H (0.00-0.04) X 10*3/uL Neutrophils # 12.83 H (1.80-7.70) X 10*3/uL Monocytes # (0-1.0) k/uL Eosinophils # 0 L (0.04-0.35) X 10*3/uL ABG pH (7.35-7.45) ABG pO2 (83-108) mmHg ABG HCO3 (21-25) mmol/L ABG O2 Saturation (94-97) % Potassium (3.5-5.1) mmol/L Chloride 110 H (98-107) mmol/L Carbon Dioxide (22-30) mmol/L BUN 6 L (7-17) mg/dL Glucose 113 H (74-99) mg/dL POC Glucose (mg/dL) 159 H (70-110) mg/dL Magnesium (1.6-2.3) mg/dL AST 82 H (14-36) U/L ALT 162 H (4-34) U/L Total Protein 6.0 L (6.3-8.2) g/dL Albumin 3.3 L (3.5-5.0) g/dL Urine Protein (Negative) Urine Glucose (UA) (Negative) Urine Ketones (Negative) 02/13/24 02/13/24 02/13/24 Range/Units 09:38 09:38 09:43 WBC 22.6 H (4.50-10.00) X 10*3/uL Hgb (12.0-15.0) g/dL Hct (37.2-46.3) % MCH (27.0-32.0) pg MCHC 30.3 L (31.0-37.0) g/dL RDW 18.0 H (11.5-14.5) % Immature Gran # (0.00-0.04) X 10*3/uL Neutrophils # 18.8 H (1.80-7.70) X 10*3/uL Monocytes # 1.5 H (0-1.0) k/uL Eosinophils # (0.04-0.35) X 10*3/uL ABG pH 7.27 L (7.35-7.45) ABG pO2 263 H (83-108) mmHg ABG HCO3 19 L (21-25) mmol/L ABG O2 Saturation 99.9 H (94-97) % Potassium 3.2 L (3.5-5.1) mmol/L Chloride 110 H (98-107) mmol/L Carbon Dioxide 16 L (22-30) mmol/L BUN 6 L (7-17) mg/dL Glucose 215 H (74-99) mg/dL POC Glucose (mg/dL) (70-110) mg/dL Magnesium 1.3 L (1.6-2.3) mg/dL AST (14-36) U/L ALT (4-34) U/L Total Protein (6.3-8.2) g/dL Albumin (3.5-5.0) g/dL Urine Protein (Negative) Urine Glucose (UA) (Negative) Urine Ketones (Negative) 02/13/24 Range/Units 10:54 WBC (4.50-10.00) X 10*3/uL Hgb (12.0-15.0) g/dL Hct (37.2-46.3) % MCH (27.0-32.0) pg MCHC (31.0-37.0) g/dL RDW (11.5-14.5) % Immature Gran # (0.00-0.04) X 10*3/uL Neutrophils # (1.80-7.70) X 10*3/uL Monocytes # (0-1.0) k/uL Eosinophils # (0.04-0.35) X 10*3/uL ABG pH (7.35-7.45) ABG pO2 (83-108) mmHg ABG HCO3 (21-25) mmol/L ABG O2 Saturation (94-97) % Potassium (3.5-5.1) mmol/L Chloride (98-107) mmol/L Carbon Dioxide (22-30) mmol/L BUN (7-17) mg/dL Glucose (74-99) mg/dL POC Glucose (mg/dL) (70-110) mg/dL Magnesium (1.6-2.3) mg/dL AST (14-36) U/L ALT (4-34) U/L Total Protein (6.3-8.2) g/dL Albumin (3.5-5.0) g/dL Urine Protein Trace H (Negative) Urine Glucose (UA) 1+ H (Negative) Urine Ketones Trace H (Negative) Microbiology - Last 24 Hours (Table) 02/11/24 22:42 Urine Culture - Final Urine,Voided 02/09/24 21:05 Blood Culture - Preliminary Blood 02/09/24 21:00 Blood Culture - Preliminary Blood - Imaging and Cardiology CT scan - abdomen: pending CT scan - chest: pending CT Scan - head: pending CT scan - pelvis: pending Assessment and Plan Assessment: the patient had a sudden acute change in vital signs. She is currently stable on the ventilator. She is not requiring any pressors. Patient has been scheduled for computed tomography scan of the head chest abdomen and pelvis. This is pending. I tried to contact patient's mother and 10:30 this morning w shabbir she was in the ICU. However the phone number in the chart is wrong The other contact phone numbers arewrong is well. I did get another numberfor the mother. This number went to voice mail
--- NOTE | 2024-02-13 17:54 | CT ---
EXAMINATION TYPE: CT brain wo con CT DLP: 1073.9 mGycm, Automated exposure control for dose reduction was used. DATE OF EXAM: 02/13/2024 5:29 PM COMPARISON: None. CLINICAL INDICATION:Female, 33 years old with history of Neuro deficit, acute, ams TECHNIQUE: Brain: Axial CT images of the brain were obtained with coronal and sagittal reformats created and rev iewed. Contrast used: None. Oral contrast used: None. FINDINGS: Brain: Extra-axial spaces: No abnormal extra-axial fluid collections. Ventricular system: Within normal limits Cerebral parenchyma: No acute intraparenchymal hemorrhage or mass effect. The nielson-white junction is well differentiated. Cerebellum: Unremarkable. Mass effect: No evidence of midline shift. Intracranial vasculature: unremarkable Soft tissues: Normal. Calvarium/osseous structures: No depressed skull fracture. Paranasal sinuses and mastoid air cells: Mild scattered paranasal sinus disease. Visualized orbits: Orbital contents are intact. Partially visualized support tubes. One of which curls and turns in the posterior nasal cavity. IMPRESSION: 1. No acute intracranial process. 2. Partially visualized support tubes. One of which curls and turns in the posterior nasal cavity.
--- NOTE | 2024-02-13 18:05 | CT ---
EXAMINATION TYPE: CT ChestAbdPelvis w con CT DLP: 2277.5 mGycm, Automated exposure control for dose reduction was used. DATE OF EXAM: 02/13/2024 5:30 PM COMPARISON: 01/23/2024 CLINICAL INDICATION:Female, 33 years old with history of SOB,pain; PHH, abdominal pain, SOB Technique: CT ChestAbdPelvis w con; Multiple axial images were obtained. Two-dimensional coronal and sagittal reconstructions were obtained. Contrast used:100 ml mL of Isovue 300 with IV Contrast, Oral contrast used: without Oral Contrast Findings: CHEST: LUNGS/ PLEURA: Bilateral posterior consolidation changes thought to represent atelectasis. AIRWAY: Patent and unremarkable. Endotracheal tube terminates above the claudio. HEART: Size within normal limits. MEDIASTINUM: No gross evidence of adenopathy. VASCULATURE: No aortic aneurysm. Left central venous catheter with tip terminating in the superior v wai cava. MUSCULOSKELETAL: No acute osseous abnormalities. SOFT TISSUES/LYMPH NODES: Unremarkable. LOWER NECK: No significant findings. ABDOMEN: ABDOMEN LIVER: Unremarkable GALLBLADDER AND BILE DUCTS: The gallbladder is surgically absent.e PANCREAS: Unremarkable. SPLEEN: Unremarkable. ADRENAL GLANDS: Unremarkable. KIDNEYS AND URETERS: No evidence of hydronephrosis or renal calculus. The ureters are unremarkable. PELVIS BLADDER: Nondistended with Andrade catheter in place. REPRODUCTIVE: Unremarkable. ABDOMEN & PELVIS STOMACH AND BOWEL: No evidence of bowel obstruction. Postsurgical changes to the gastric lumen with f luid extending away from the gastric lumen as seen on 01/23/2024 CT. Morphology not significantly guevara ged from 01/23/2024. PERITONEUM: No evidence of pneumoperitoneum. Trace free fluid which simple Hounsfield units measuring in the pelvis. VASCULATURE: No evidence of aortic aneurysm. Right femoral central venous catheter with tip terminati ng in the right external iliac artery. MUSCULOSKELETAL: No acute osseous abnormalities LYMPH NODES: No gross evidence for lymphadenopathy. SOFT TISSUE/ABDOMINAL WALL: Fat-containing umbilical hernia. IMPRESSION: 1. Postsurgical changes to the gastric lumen with fluid extending away from the gastric lumen as see n on 01/23/2024 CT. Brain scattered represent gastric diverticula versus contained anastomotic dehisce nce. No additional evidence for acute thoracic or abdominal process visualized. Extensive motion and poor [id number] ratio limits evaluation. 2. Andrade catheter in place. 3. Endotracheal nasogastric tubes in appropriate position. 4. Right femoral approach catheter with tip in the external iliac artery. 5. Bilateral posterior pulmonary consolidation changes thought to represent atelectasis. 6. Left central venous catheter with tip terminating in the superior vena cava.
--- NOTE | 2024-02-13 20:02 | P.CNNES ---
History of Present Illness Consult date: 02/13/24 Requesting physician: Candido Nuno Reason for Consult: ams, aphasic History of Present Illness: This is a 33-year-old woman with history of gastric sleeve procedure in December 2023 and had complication of abdominal pain presents to our ED on 02/09/2024 because of continued abdominal pain. History is obtained from medical record as well as the patient nurse. She is consulted for altered mental status and aphasia. It seems that the patient had a gastric sleeve procedure on December 20, 2023 and she had complication of abdominal pain in which she in earlier January she continued to have abdominal pain and the CT was found possible anastomotic leak and she was sent to [facility]. Seems over the last day and she prese nts because continued abdominal pain and per the nurse is having nausea and vomiting. According to the nurse the patient was on medical floor and was alert oriented x 3 yesterday and had was planned to have EGD today the patient was thrashing throughout very incoherent breathing 30-40 times a minute and heart rate in the 180s. As a result the patient was transferred to ICU. The patient as a result was intubated on a ventilator because of her respiratory distress. She is on IV propofol. Some of the workup during this hospital visit consisted of: Patient is afebrile White blood cell is trending up of 22.6 thousand AST is 82 and ALT is 162 which is slightly trended up. Potassium is 3.2. CT of the head is reported as no acute intracranial process. Partially visua lized support tubes. 1 of which curls insurance in the posterior nasal cavity. Personally reviewed the CT and there is no acute or subacute stroke. Other images of the abdomen pelvis is suggestive of atelectasis. Review of Systems But it but the positive and negative as per HPI. Past Medical History Past Medical History: GERD/Reflux, Sleep Apnea/CPAP/BIPAP Additional Past Medical History / Comment(s): iron defiency anemia, used to get iron infusions no cpap used, migraines History of Any Multi-Drug Resistant Organisms: None Reported Past Surgical History: Bariatric Surgery, Section, Cholecystectomy, Coronary Bypass/CABG, Tubal Ligation, Uterine Ablation Additional Past Surgical History / Comment(s): 2008 AND 2015 (c/s) and 2010 (cholecyst). 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 EGD and dilation 01/24 Past Anesthesia/Blood Transfusion Reactions: No Reported Reaction Past Psychological History: Anxiety, Bipolar, Depression Additional Psychological History / Comment(s): 06/21/19: Pt taking Celexa 5mg and Buspar 15mg daily Smoking Status: Never smoker Past Alcohol Use History: None Reported Additional Past Alcohol Use History / Comment(s): Pt. states she quit smoking cigarettes but she does vape occasionaly, not regularly for the last year Past Drug Use History: None Reported - Past Family History Mother Family Medical History: Asthma, COPD, Diabetes Mellitus, Hypertension Additional Family Medical History / Comment(s): depression, anxiety, sleep apnea, Father Family Medical History: Hypertension Additional Family Medical History / Comment(s): arthritis Medications and Allergies Home Medications Medication Instructions Recorded Confirmed Type QUEtiapine [SEROquel] 100 mg PO HS 30 Days #30 tab 03/30/23 02/09/24 Rx buPROPion XL [Wellbutrin XL] 150 mg PO DAILY 30 Days #30 tab 03/30/23 02/09/24 Rx Levothyroxine Sodium 88 mcg PO DAILY 10/17/23 02/09/24 History Omeprazole [PriLOSEC] 40 mg PO DAILY #90 cap 12/22/23 02/09/24 Rx Ondansetron Odt [Zofran Odt] 4 mg PO Q8HR PRN #9 tab 12/22/23 02/09/24 Rx Budesonide/Formoterol Fumarate 2 puff INHALATION RT-BID 01/23/24 02/09/24 History [Symbicort 160-4.5 Mcg Inhaler] [place] Carbonate ER [Lithobid] 900 mg PO HS 01/23/24 02/09/24 History Tiotropium 2.5 Mcg/Puff [Spiriva 2 puff INHALATION RT-DAILY 01/23/24 02/09/24 History Respimat 2.5 Mcg] Topiramate [Topamax] 50 mg PO HS 01/23/24 02/09/24 History busPIRone HCl [Buspar] 10 mg PO BID 01/23/24 02/09/24 History traZODone HCL [Desyrel] 100 mg PO HS PRN 01/23/24 02/09/24 History Acetaminophen [Tylenol] 325 - 650 mg PO Q6H PRN 02/09/24 02/09/24 History Hyoscyamine Sulfate [Hyoscyamine 0.125 - 0.25 mg SL Q6H PRN 02/09/24 02/09/24 History Sulfate SL] methocarbamoL [Robaxin-750] 750 mg PO QID PRN 02/09/24 02/09/24 History Allergies Allergy/AdvReac Type Severity Reaction Status Date / Time latex Allergy Rash/Hives Verified 02/09/24 19:24 Physical Examination - Vital Signs Vital Signs: Vital Signs Temp Pulse Pulse Resp BP BP Pulse Ox 02/13/24 19:00 64 20 99 02/13/24 18:45 65 20 100 02/13/24 18:30 65 20 99 02/13/24 18:15 66 20 119/88 99 02/13/24 18:00 67 20 100 02/13/24 17:45 69 20 100 02/13/24 17:00 67 20 117/86 02/13/24 16:45 65 20 99 02/13/24 16:30 67 20 100 02/13/24 16:15 67 20 100 02/13/24 16:00 97.2 F L 66 20 100 02/13/24 15:51 02/13/24 15:45 67 20 100 02/13/24 15:39 02/13/24 15:30 66 20 100 02/13/24 15:15 66 20 100 02/13/24 15:00 64 20 113/85 100 02/13/24 14:45 64 20 100 02/13/24 14:30 64 20 100 02/13/24 14:15 64 20 99 02/13/24 14:00 70 20 105/84 99 02/13/24 13:45 64 20 99 02/13/24 13:30 66 20 110/81 99 02/13/24 13:15 66 20 113/80 99 02/13/24 13:00 66 20 113/79 99 02/13/24 12:45 66 20 111/81 99 02/13/24 12:30 68 20 106/77 99 02/13/24 12:15 66 24 105/76 99 02/13/24 12:00 98.0 F 68 19 105/74 100 02/13/24 11:45 66 20 102/70 100 02/13/24 11:30 68 20 106/73 100 02/13/24 11:15 82 16 106/66 100 02/13/24 11:03 02/13/24 11:00 101 H 20 116/74 99 02/13/24 10:45 93 15 105/61 97 02/13/24 10:30 98 20 126/75 94 L 02/13/24 10:15 161 H 24 152/106 100 02/13/24 10:00 129 H 20 156/104 93 L 02/13/24 09:55 02/13/24 09:45 123 H 24 161/108 98 02/13/24 09:30 141 H 20 153/92 93 L 02/13/24 09:15 151 H 24 158/96 99 02/13/24 09:00 99.1 F 160 H 20 159/102 98 02/13/24 08:45 170 H 12 147/93 97 02/13/24 08:38 02/13/24 08:33 02/13/24 08:30 179 H 68 H 94 L 02/13/24 08:27 184 H 44 H 02/13/24 07:49 97.8 F 68 15 175/93 97 02/13/24 07:38 55 L 145/90 02/13/24 01:10 98.3 F 69 16 157/91 95 FiO2 02/13/24 19:00 02/13/24 18:45 02/13/24 18:30 02/13/24 18:15 02/13/24 18:00 02/13/24 17:45 02/13/24 17:00 02/13/24 16:45 02/13/24 16:30 02/13/24 16:15 02/13/24 16:00 40 02/13/24 15:51 100 02/13/24 15:45 02/13/24 15:39 40 02/13/24 15:30 02/13/24 15:15 02/13/24 15:00 02/13/24 14:45 02/13/24 14:30 02/13/24 14:15 02/13/24 14:00 02/13/24 13:45 02/13/24 13:30 02/13/24 13:15 02/13/24 13:00 02/13/24 12:45 02/13/24 12:30 02/13/24 12:15 02/13/24 12:00 40 02/13/24 11:45 02/13/24 11:30 02/13/24 11:15 02/13/24 11:03 40 02/13/24 11:00 02/13/24 10:45 02/13/24 10:30 02/13/24 10:15 02/13/24 10:00 02/13/24 09:55 40 02/13/24 09:45 02/13/24 09:30 02/13/24 09:15 02/13/24 09:00 02/13/24 08:45 100 02/13/24 08:38 100 02/13/24 08:33 100 02/13/24 08:30 02/13/24 08:27 02/13/24 07:49 02/13/24 07:38 02/13/24 01:10 Intake and Output 02/13/24 02/13/24 02/13/24 06:59 14:59 22:59 Intake Total 568.100 465 Output Total 1525 745 Balance -956.900 -280 Intake: IV 465 465 0.9 ART Line 15 15 Sodium Chloride 0.9% 1, 450 450 000 ml @ 75 mls/hr IV . [id number] ELPIDIO Rx#:[id number] Intake, IV Titration 103.100 Amount Clevidipine Butyrate 25 3.100 mg In Empty Bag 1 bag @ 1 MG/HR 2 mls/hr IV .Q24H ELPIDIO Rx#:[id number] propofoL 1,000 mg In 100.000 Empty Bag 1 bag @ 15 MCG/ KG/MIN 9.536 mls/hr IV . [id number] ELPIDIO Rx#:[id number] Output: Urine 1525 745 Other: Voiding Method Indwelling Catheter Indwelling Catheter # Voids 5 ABP, PAP, CO, CI - Last 8 Hours Arterial Blood Pressure 128/85 Arterial Blood Pressure 125/82 Arterial Blood Pressure 126/82 Arterial Blood Pressure 134/87 Arterial Blood Pressure 141/91 Arterial Blood Pressure 135/89 Arterial Blood Pressure 133/88 Arterial Blood Pressure 134/89 Arterial Blood Pressure 135/89 Arterial Blood Pressure 134/90 Arterial Blood Pressure 131/86 Arterial Blood Pressure 133/86 Arterial Blood Pressure 131/85 Arterial Blood Pressure 134/86 Arterial Blood Pressure 136/88 Arterial Blood Pressure 135/88 Arterial Blood Pressure 136/90 Arterial Blood Pressure 131/85 Arterial Blood Pressure 131/85 Arterial Blood Pressure 130/85 Arterial Blood Pressure 130/85 Arterial Blood Pressure 130/84 Arterial Blood Pressure 130/83 Arterial Blood Pressure 132/83 Arterial Blood Pressure 130/81 General: Lying in bed and does not appear in acute distress. Respiratory: Intubated on ventilator. Neuro: Limited. Is on IV Propofol 60mcg/kg/min. The patient is comatose. Pupils are 2mm and sluggishly reactive to light. No facial weakness. Decrease tone throughout. Reflex: 1+ throughout. Plantars: Mute bilaterally. Results - Laboratory Findings CBC and BMP: 02/13/24 09:38 02/13/24 09:38 Abnormal Lab Findings: Abnormal Labs 02/09/24 02/09/24 02/09/24 17:03 17:03 17:03 WBC 11.5 H RBC 5.50 H Hgb Hct 46.8 H MCH MCHC RDW 18.0 H Immature Gran # Neutrophils # 8.9 H Monocytes # Eosinophils # ABG pH ABG pO2 ABG HCO3 ABG O2 Saturation Sodium Potassium Chloride Carbon Dioxide Anion Gap BUN Glucose 101 H POC Glucose (mg/dL) Calcium Magnesium AST 76 H ALT 101 H Total Protein Albumin Urine Appearance Turbid H Urine Protein 2+ H Urine Glucose (UA) Urine Ketones 2+ H Urine Blood Trace H Urine Bilirubin 1+ H Ur Leukocyte Esterase Trace H Urine RBC 20 H Urine WBC 73 H Ur Squamous Epith Cells 37 H Urine Bacteria Many H Urine Mucus Many H 02/10/24 02/10/24 02/11/24 04:53 04:53 07:30 WBC 12.7 H RBC Hgb 11.3 L 11.2 L D Hct 36.3 L MCH 26.0 L MCHC 31.1 L RDW 19.1 H 17.9 H Immature Gran # Neutrophils # Monocytes # Eosinophils # ABG pH ABG pO2 ABG HCO3 ABG O2 Saturation Sodium 147 H Potassium 3.3 L Chloride Carbon Dioxide 20.9 L Anion Gap 17.10 H BUN Glucose POC Glucose (mg/dL) Calcium 8.5 L Magnesium AST ALT Total Protein Albumin Urine Appearance Urine Protein Urine Glucose (UA) Urine Ketones Urine Blood Urine Bilirubin Ur Leukocyte Esterase Urine RBC Urine WBC Ur Squamous Epith Cells Urine Bacteria Urine Mucus 02/13/24 02/13/24 02/13/24 06:10 06:10 08:11 WBC 15.70 H RBC Hgb 11.1 L Hct 34.3 L MCH 26.2 L MCHC RDW 19.6 H Immature Gran # 0.22 H Neutrophils # 12.83 H Monocytes # Eosinophils # 0 L ABG pH ABG pO2 ABG HCO3 ABG O2 Saturation Sodium Potassium Chloride 110 H Carbon Dioxide Anion Gap BUN 6 L Glucose 113 H POC Glucose (mg/dL) 159 H Calcium Magnesium AST 82 H ALT 162 H Total Protein 6.0 L Albumin 3.3 L Urine Appearance Urine Protein Urine Glucose (UA) Urine Ketones Urine Blood Urine Bilirubin Ur Leukocyte Esterase Urine RBC Urine WBC Ur Squamous Epith Cells Urine Bacteria Urine Mucus 02/13/24 02/13/24 02/13/24 09:38 09:38 09:43 WBC 22.6 H RBC Hgb Hct MCH MCHC 30.3 L RDW 18.0 H Immature Gran # Neutrophils # 18.8 H Monocytes # 1.5 H Eosinophils # ABG pH 7.27 L ABG pO2 263 H ABG HCO3 19 L ABG O2 Saturation 99.9 H Sodium Potassium 3.2 L Chloride 110 H Carbon Dioxide 16 L Anion Gap BUN 6 L Glucose 215 H POC Glucose (mg/dL) Calcium Magnesium 1.3 L AST ALT Total Protein Albumin Urine Appearance Urine Protein Urine Glucose (UA) Urine Ketones Urine Blood Urine Bilirubin Ur Leukocyte Esterase Urine RBC Urine WBC Ur Squamous Epith Cells Urine Bacteria Urine Mucus 02/13/24 10:54 WBC RBC Hgb Hct MCH MCHC RDW Immature Gran # Neutrophils # Monocytes # Eosinophils # ABG pH ABG pO2 ABG HCO3 ABG O2 Saturation Sodium Potassium Chloride Carbon Dioxide Anion Gap BUN Glucose POC Glucose (mg/dL) Calcium Magnesium AST ALT Total Protein Albumin Urine Appearance Urine Protein Trace H Urine Glucose (UA) 1+ H Urine Ketones Trace H Urine Blood Urine Bilirubin Ur Leukocyte Esterase Urine RBC Urine WBC Ur Squamous Epith Cells Urine Bacteria Urine Mucus Assessment and Plan Assessment: This is a 33-year-old woman had gastric sleeve on December 20, 2023 and has been having abdominal complications since then presents to the emergency department on 0 01/13/2024 for abdominal pain. It seems today while in the medical floor the patient was thrashing, very incoherent breathing 30-40 times a minute and a heart rate in the 180s. Patient was transferred to ICU and was intubated on a ventilator and is on IV propofol. CT of the head is unremarkable for any acute or subacute stroke. Patient is having elevated white blood cell. Afebrile. Also her blood pressure was elevated earlier this morning of the systolic blood pressure in the high 190s diastolic in the 100. Altered mental status seems due to metabolic encephalopathy. Patient is having respiratory distress. Rule out underlying infection Tachypneic Tachycardia Slight transaminitis Abdominal pain Recent gastric sleeve on December 20, 2023 Plan: I ordered a routine EEG as well as a carotid duplex Ordered Ammonia level, TSH. Will defer the rest of the medical management to primary team and other specialist Plan discussed with the patient's ICU nurse Thank you for the consult Time with Patient: Greater than 30
[2024-02-13 23:20] LABS: T4, Free (Free Thyroxine) 1.88 ng/dL (0.78-2.19)
[2024-02-14 00:05] LABS: Glucose,Whole Blood 116 mg/dL (70-110)
[2024-02-14 01:42] LABS: Amphetamine Screen,Urine Not Detected (NotDetected); Barbiturate Screen,Urine Not Detected (NotDetected); Benzodiazepines Screen,Urine Not Detected (NotDetected); Cocaine Screen,Urine Not Detected (NotDetected); Methadone Screen, Urine Not Detected (NotDetected); Opiate Screen,Urine Detected (NotDetected); Oxycodone Screen, Urine Not Detected (NotDetected); Phencyclidine Screen,Urine Not Detected (NotDetected); Tricyclic Antidepressant,Urine Not Detected (NotDetected); Urn Cannabinoid Scrn Not Detected (NotDetected)
[2024-02-14 04:16] LABS: African American GFR (CKD) >90 (>60 ml/min/1.73 sqM); Anion Gap 6 mmol/L; Blood Urea Nitrogen 5 mg/dL (7-17); Calcium 8.4 mg/dL (8.4-10.2); Carbon Dioxide 23 mmol/L (22-30); Chloride 112 mmol/L (98-107); Glucose 109 mg/dL (74-99); Magnesium 2.6 mg/dL (1.6-2.3); Non-African American GFR(CKD) >90 (>60 ml/min/1.73 sqM); Potassium 3.5 mmol/L (3.5-5.1); Sodium 141 mmol/L (137-145)
[2024-02-14 04:39] LABS: Anisocytosis Slight; Basophils % (A) 0 %; Eosinophils % (A) 0 %; HCT 36.7 % (34.0-46.0); HGB 11.6 gm/dL (11.4-16.0); Hypochromasia Slight; Lymphocytes # (A) 1.5 k/uL (1.0-4.8); Lymphocytes % (A) 13 %; MCH 26.9 pg (25.0-35.0); MCHC 31.5 g/dL (31.0-37.0); MCV 85.3 fL (80.0-100.0); Mean Platelet Volume 13.5; Monocytes # (A) 0.5 k/uL (0-1.0); Monocytes % (A) 4 %; Neutrophils # (A) 9.4 k/uL (1.3-7.7); Neutrophils % (A) 82 %; Platelet Count 193 k/uL (150-450); Poikilocytosis Slight; RDW 18.1 % (11.5-15.5); WBC 11.5 k/uL (3.8-10.6)
[2024-02-14] MEDS: POTASSIUM CHLORIDE 20 MEQ in WATER FOR INJECTION 1 100ML.BAG IVPB SCH (04:55)
[2024-02-14 05:28] LABS: ABG HCO3 25 mmol/L (21-25); ABG PCO2 37 mmHg (35-45); ABG PH 7.44 (7.35-7.45); ABG PO2 173 mmHg (83-108); ABG TCO2 26 mmol/L (19-24); Allen Test Performed? Yes
--- NOTE | 2024-02-14 05:46 | US ---
EXAMINATION TYPE: US carotid duplex BILAT DATE OF EXAM: 02/13/2024 COMPARISON: NONE CLINICAL INDICATION: Female, 33 years old with history of stroke; Stroke. Patient on vent and unable to move neck. TECHNIQUE: Carotid duplex ultrasound examination. Indirect Doppler criteria was utilized. FINDINGS: EXAM MEASUREMENTS: RIGHT: Peak Systolic Velocity (PSV) cm/sec ----- Right CCA: 30.0 ----- Right ICA: 24.8 ----- Right ECA: 27.5 ICA/CCA ratio: 0.8 RIGHT: End Diastole cm/sec ----- Right CCA: 13.0 ----- Right ICA: 10.0 ----- Right ECA: 5.6 LEFT: Peak Systolic Velocity (PSV) cm/sec ----- Left CCA: 44.3 ----- Left ICA: 35.5 ----- Left ECA: 41.2 ICA/CCA ratio: 0.8 LEFT: End Diastole cm/sec ----- Left CCA: 10.6 ----- Left ICA: 9.9 ----- Left ECA: 8.5 VERTEBRALS (direction of flow): Right Vertebral: Antegrade Left Vertebral: Antegrade Rhythm: Normal LONG TERM CARE PHARMACIST NOTES: Limited exam due to patient on vent and unable to move neck/ high bifurcation. U nable to obtain Right Mid-Dist ICA due to patient head position. No significant velocity elevations IMPRESSION: Suboptimal study. No hemodynamically significant stenosis clearly identified bilaterally . Criteria for Assigning % of Stenosis / Diameter reduction (Estimation based on the indirect measurements of the internal carotid artery velocities (ICA PSV). 1. Normal (no stenosis)=ICA PSV < 125 cm/s: ratio < 2.0: ICA EDV<40 cm/s. 2. Less than 50% stenosis=ICA PSV < 125 cm/s: ratio < 2.0: ICA EDV<40 cm/s. 3. 50 to 69% stenosis=ICA PSV of 125 to 230 cm/s: ration 2.0 ? 4.0: ICA EDV 40-100 cm/s. 4. Greater than 70% stenosis to near occlusion= ICA PSV > 230 cm/s: ratio > 4.0: ICA EDV > 100 cm/s. 5. Near occlusion= ICA PSV velocities may be low or undetectable: variable ratio and ICA EDV. 6. Total occlusion=unable to detect flow.
[2024-02-14 06:37] LABS: Glucose,Whole Blood 116 mg/dL (70-110)
--- NOTE | 2024-02-14 09:12 | XR ---
EXAMINATION TYPE: XR chest 1V portable DATE OF EXAM: 02/14/2024 5:42 AM CLINICAL INDICATION:Female, 33 years old with history of Tube placement; [facility] COMPARISON: Chest radiograph from one day prior. TECHNIQUE: XR chest 1V portable Frontal view of the chest. FINDINGS: Lungs/Pleura: There is no evidence of pleural effusion, focal consolidation, or pneumothorax. Pulmonary vascularity: Unremarkable. Heart/mediastinum: Cardiomediastinal silhouette is unremarkable. Musculoskeletal: No acute osseous pathology. Other findings: None Lines/Tubes: Endotracheal tube with distal tip 2.0 cm above the claudio. Nasogastric tube with its distal tip and side-port projecting under the diaphragm. Left central venous catheter with distal tip at the cavoatrial junction. IMPRESSION: No acute cardiopulmonary disease/process.
--- NOTE | 2024-02-14 10:43 | P.PN ---
Subjective Progress Note Date: 02/14/24 Principal diagnosis: Respiratory failure. Pulmonary consult dated February 13, 2024. This is a 33-year-old female with a history of gastric sleeve procedure on December [address] Liu, who presents to the emergency department, on February 08, complaining of abdominal pain. The patient was seen earlier in January, for abdominal pain, and a CT found a possible anastomotic leak, and she was sent down to [facility]. Apparently at [facility], she had a EGD, with dilatation. She went home and was able to eat after the fifth day. Over the last 3 days, prior to this admission, she was unable to hold down any water. She does have epigastric abdominal pain. She denies any fever or chills. A rapid response was called on this patient, earlier today, February 12, and with my charge nurse from the ICU went up to the room, the patient was thrashing about, was very incoherent, was breathing 30-40 times a minute, and had a heart rate of 180 bpm. For that reason, we transferred the patient down to the intensive care unit, for further monitoring and management, and, the patient eventually required intubation and mechanical ventilation. That was done by the nurse polymerization supervisor. When I got down to the intensive care unit, I placed a left internal jugular triple-lumen catheter, and a right femoral arterial line, for further management and monitoring. Patient has a history of gastroesophageal reflux disease, obstructive sleep apnea syndrome, iron deficiency anemia, recent gastric sleeve procedure, hypothyroidism, and possible COPD and that she is on Symbicort, Spiriva, and albuterol, as outpatient medications. Count is 22.6, hemoglobin 11.8, hematocrit 38.8, and platelet count 261,000. Blood gases after intubation show pO2 of 263, pCO2 of 41, pH is 7.27. Sodium 145, potassium 3.2, chlorides 110, CO2 16, anion gap 19, BUN 6, creatinine 0.74. Glucose is 215. Magnesium 1.3, calcium is 8.6. We did ask for lithium level. Urine is negative. Thus far urine and blood sampling is negative. It shows I properly placed endotracheal tube, and the tip of the central line, in the area of the right atrium/superior vena cava junction. Progress note dated February 14, 2024. This is a 33-year-old female who was seen yesterday in consultation. Please see my note above. The patient was on the general medical floor, and developed tachycardia, hypertension, tachypnea, and significant mental status changes, with significant disorientation, confusion, agitation, etc. The patient was transferred down to the intensive care unit, yesterday, February 12, and was intubated for airway protection. A central line and arterial line were placed subsequent to that. She remains on the mechanical ventilator. She is on volume assist-control, rate 20, tidal volume 350, FiO2 40%, PEEP of 5. Blood gases show pO2 173, pCO2 37, pH is 7.44. The FiO2 is reduced down to 30%. The patient is on propofol at 55 mcg/kg/min, saline at 75 cc an hour, and Cleviprex, which has been weaned off. The patient will have a daily interruption of sedation. Will also start the patient on tube feeds, should she not progress. White count 11.5, hemoglobin 11.6, hematocrit 36.7, and platelet count was normal. Sodium 141, potassium 3.5, chlorides 112, CO2 23, BUN 5, and creatinine 0.64. Glucose is 116. Magnesium 2.6. Calcium 8.4. Urine and blood sampling are thus far negative. The chest x-ray appears to be relatively normal, save for the endotracheal tube, and the central line. Objective - Vital Signs Vital signs: Vital Signs Temp 98.2 F 02/14/24 08:00 Pulse 48 L 02/14/24 09:00 Resp 20 02/14/24 09:00 BP 135/87 02/14/24 06:15 Pulse Ox 99 02/14/24 09:00 FiO2 40 02/14/24 08:13 Intake & Output 02/13/24 02/14/24 02/14/24 18:59 06:59 18:59 Intake Total 9123.582 6485.462 492.198 Output Total 2270 957 155 Balance -1136.900 87.462 337.198 Weight 113.5 kg Intake: IV 930 858 334 0.9 ART Line 30 33 9 Potassium Chloride 20 meq 100 In Water For Injection 1 100ml.bag @ 50 mls/hr IVPB Q2H [facility] Rx#: [id number] Sodium Chloride 0.9% 1, 900 825 225 000 ml @ 75 mls/hr IV . [id number] [facility] Rx#:[id number] Intake, IV Titration 203.100 186.462 158.198 Amount Clevidipine Butyrate 25 3.100 mg In Empty Bag 1 bag @ 1 MG/HR 2 mls/hr IV .Q24H [facility] Rx#:[id number] propofoL 1,000 mg In 200.000 186.462 158.198 Empty Bag 1 bag @ 15 MCG/ KG/MIN 9.536 mls/hr IV . [id number] [facility] Rx#:[id number] Output: Urine 2270 957 155 Other: Voiding Method Indwelling Catheter Indwelling Catheter ABP, PAP, CO, CI - Last Documented Arterial Blood Pressure 138/83 - Exam No acute distress, patient with propofol, with an orally placed endotracheal tube, and NG tube. HEENT examination is grossly unremarkable. Neck supple. Full range of motion. No adenopathy thyromegaly or neck vein distention. The patient has a left internal jugular triple-lumen catheter. Cardiovascular examination reveals regular rhythm rate. S1-S2 normal. No S3 or S4. No discernible murmur noted. Heart rate 60 bpm. Lungs reveal scattered rhonchi. No wheezes or crackles. Breath sounds equal bilaterally. Saturations are 99 %. Abdomen obese, soft, without bowel sounds. No masses. The patient has a right femoral arterial line. Extremities are intact. No cyanosis clubbing or edema. Skin is without rash or lesion. Neurologic examination cannot be assessed at this time. - Labs CBC & Chem 7: 02/14/24 03:25 02/14/24 03:25 Labs: Abnormal Lab Results - Last 24 Hours (Table) 02/13/24 02/13/24 02/13/24 Range/Units 09:38 10:54 20:12 WBC (3.8-10.6) k/uL RDW (11.5-15.5) % Neutrophils # 18.8 H (1.3-7.7) k/uL Monocytes # 1.5 H (0-1.0) k/uL ABG pO2 (83-108) mmHg ABG Total CO2 (19-24) mmol/L ABG O2 Saturation (94-97) % Chloride (98-107) mmol/L BUN (7-17) mg/dL Glucose (74-99) mg/dL POC Glucose (mg/dL) (70-110) mg/dL Magnesium (1.6-2.3) mg/dL Ammonia 30 H (<30) umol/L TSH (0.465-4.680) mIU/L Urine Protein Trace H (Negative) Urine Glucose (UA) 1+ H (Negative) Urine Ketones Trace H (Negative) Urine Opiates Screen (NotDetected) 02/13/24 02/13/24 02/14/24 Range/Units 20:12 23:27 00:03 WBC (3.8-10.6) k/uL RDW (11.5-15.5) % Neutrophils # (1.3-7.7) k/uL Monocytes # (0-1.0) k/uL ABG pO2 (83-108) mmHg ABG Total CO2 (19-24) mmol/L ABG O2 Saturation (94-97) % Chloride (98-107) mmol/L BUN (7-17) mg/dL Glucose (74-99) mg/dL POC Glucose (mg/dL) 116 H (70-110) mg/dL Magnesium (1.6-2.3) mg/dL Ammonia (<30) umol/L TSH 0.156 L (0.465-4.680) mIU/L Urine Protein (Negative) Urine Glucose (UA) (Negative) Urine Ketones (Negative) Urine Opiates Screen Detected H (NotDetected) 02/14/24 02/14/24 02/14/24 Range/Units 03:25 03:25 05:30 WBC 11.5 H (3.8-10.6) k/uL RDW 18.1 H (11.5-15.5) % Neutrophils # 9.4 H (1.3-7.7) k/uL Monocytes # (0-1.0) k/uL ABG pO2 173 H (83-108) mmHg ABG Total CO2 26 H (19-24) mmol/L ABG O2 Saturation 100.0 H (94-97) % Chloride 112 H (98-107) mmol/L BUN 5 L (7-17) mg/dL Glucose 109 H (74-99) mg/dL POC Glucose (mg/dL) (70-110) mg/dL Magnesium 2.6 H (1.6-2.3) mg/dL Ammonia (<30) umol/L TSH (0.465-4.680) mIU/L Urine Protein (Negative) Urine Glucose (UA) (Negative) Urine Ketones (Negative) Urine Opiates Screen (NotDetected) 02/14/24 Range/Units 06:36 WBC (3.8-10.6) k/uL RDW (11.5-15.5) % Neutrophils # (1.3-7.7) k/uL Monocytes # (0-1.0) k/uL ABG pO2 (83-108) mmHg ABG Total CO2 (19-24) mmol/L ABG O2 Saturation (94-97) % Chloride (98-107) mmol/L BUN (7-17) mg/dL Glucose (74-99) mg/dL POC Glucose (mg/dL) 116 H (70-110) mg/dL Magnesium (1.6-2.3) mg/dL Ammonia (<30) umol/L TSH (0.465-4.680) mIU/L Urine Protein (Negative) Urine Glucose (UA) (Negative) Urine Ketones (Negative) Urine Opiates Screen (NotDetected) Microbiology - Last 24 Hours (Table) 02/11/24 22:42 Urine Culture - Final Urine,Voided Assessment and Plan Assessment: Acute deterioration, with mental status changes, hypertension, tachycardia, and tachypnea, with impending respiratory arrest, S/P intubation and mechanical ventilation, on February 13, 2024. Obesity, status post gastric sleeve procedure, December 20, 2023. Recent evaluation at [facility], status post EGD, with dilatation. Hypothyroidism. Possible underlying asthma based on the patient's outpatient medications. History of gastroesophageal reflux disease. History of sleep apnea syndrome. History of iron deficiency anemia. History of anxiety/depression, and bipolar disorder. Plan: Plan dated February 13, 2024. The patient apparently had an acute/abrupt change, and her clinical status, with mental status changes, tachycardia, hypertension, tachypnea, and impending respiratory failure. The patient was transferred down to the intensive care unit, and intubated by the CHANGE CONTROL ANALYST. We placed a right femoral arterial line, and a left internal jugular triple-lumen catheter, for better monitoring and management. Not sure exactly what happened to this patient. Her lithium level was quite low. The patient recently had a gastric sleeve procedure on December 19, and, was seen on the , for possible anastomotic leak, and transferred down [facility], where she had an EGD, with dilatation. The patient was to have an EGD with dilatation today, but obviously, because of her acute deterioration, that was not done. We will continue to follow make recommendations along the way. Labs, x-rays, and medications are reviewed. Pro gnosis is guarded. We will continue to follow make recommendations along the way. Plan dated February 14, 2024. The patient is seen today in room 259. The patient remains on the mechanical ventilator. Because of her acute mental status changes, she went for CT scan of the brain, which was negative. She has been seen by neurology. Labs, x-rays, medications are reviewed. Currently, her blood gases are reasonable, with a pO2 of 173, pCO2 37, pH of 7.44. The FiO2 was reduced down to 30%, from 40%. The patient remains on propofol at 55 mcg/kg/min, and saline at 75 cc an hour. The patient will have a daily interruption of sedation, and potential spontaneous breathing trial today. Should she fail the spontaneous breathing trial, the patient will need to be started on tube feedings. Labs, x-rays, medications are reviewed. Prognosis is guarded. We will continue to follow the patient and make recommendations. Time with Patient: Greater than 30
[2024-02-14 11:36] LABS: Glucose,Whole Blood 98 mg/dL (70-110)
--- NOTE | 2024-02-14 14:15 | P.PN ---
Subjective Progress Note Date: 02/14/24 patient appears more stable today. She is currently on sedation holiday. She is able to open her eyes when you talk to her. On exam her vital signs appear stable. Her abdomen is soft. There is no significant tenderness on palpation. There is no evidence of rebound or guarding. Patient CT scan was reviewed. The patient underwent recent EGD with balloon dilatation of her gastric sleeve at [facility]. The patient's CT scans does not appear to show an obvious leak of her stomach. There is a foci of air that is outside the stomach however there is no sign of abscess or inflammatory change in this area. The patient will hopefully be extubated today or tomorrow. Will continue to aileen ch her closely. Objective - Vital Signs Vital signs: Vital Signs Temp 98.3 F 02/14/24 12:00 Pulse 75 02/14/24 13:45 Resp 20 02/14/24 13:45 BP 116/72 02/14/24 13:45 Pulse Ox 97 02/14/24 13:45 FiO2 30 02/14/24 12:00 Intake & Output 02/13/24 02/14/24 02/14/24 18:59 06:59 18:59 Intake Total 0539.823 3957.462 666.920 Output Total 2270 957 255 Balance -1136.900 87.462 411.920 Weight 113.5 kg Intake: IV 930 858 490 0.9 ART Line 30 33 15 Potassium Chloride 20 meq 100 In Water For Injection 1 100ml.bag @ 50 mls/hr IVPB Q2H [facility] Rx#: [id number] Sodium Chloride 0.9% 1, 900 825 375 000 ml @ 75 mls/hr IV . [id number] [facility] Rx#:[id number] Intake, IV Titration 203.100 186.462 176.920 Amount Clevidipine Butyrate 25 3.100 0.867 mg In Empty Bag 1 bag @ 1 MG/HR 2 mls/hr IV .Q24H [facility] Rx#:[id number] propofoL 1,000 mg In 200.000 186.462 176.053 Empty Bag 1 bag @ 15 MCG/ KG/MIN 9.536 mls/hr IV . [id number] [facility] Rx#:[id number] Output: Urine 2270 957 255 Other: Voiding Method Indwelling Catheter Indwelling Catheter Indwelling Catheter ABP, PAP, CO, CI - Last Documented Arterial Blood Pressure 127/64 - Labs CBC & Chem 7: 02/14/24 03:25 02/14/24 03:25 Labs: Abnormal Lab Results - Last 24 Hours (Table) 02/13/24 02/13/24 02/13/24 Range/Units 20:12 20:12 23:27 WBC (3.8-10.6) k/uL RDW (11.5-15.5) % Neutrophils # (1.3-7.7) k/uL ABG pO2 (83-108) mmHg ABG Total CO2 (19-24) mmol/L ABG O2 Saturation (94-97) % Chloride (98-107) mmol/L BUN (7-17) mg/dL Glucose (74-99) mg/dL POC Glucose (mg/dL) (70-110) mg/dL Magnesium (1.6-2.3) mg/dL Ammonia 30 H (<30) umol/L TSH 0.156 L (0.465-4.680) mIU/L Urine Opiates Screen Detected H (NotDetected) 02/14/24 02/14/24 02/14/24 Range/Units 00:03 03:25 03:25 WBC 11.5 H (3.8-10.6) k/uL RDW 18.1 H (11.5-15.5) % Neutrophils # 9.4 H (1.3-7.7) k/uL ABG pO2 (83-108) mmHg ABG Total CO2 (19-24) mmol/L ABG O2 Saturation (94-97) % Chloride 112 H (98-107) mmol/L BUN 5 L (7-17) mg/dL Glucose 109 H (74-99) mg/dL POC Glucose (mg/dL) 116 H (70-110) mg/dL Magnesium 2.6 H (1.6-2.3) mg/dL Ammonia (<30) umol/L TSH (0.465-4.680) mIU/L Urine Opiates Screen (NotDetected) 02/14/24 02/14/24 Range/Units 05:30 06:36 WBC (3.8-10.6) k/uL RDW (11.5-15.5) % Neutrophils # (1.3-7.7) k/uL ABG pO2 173 H (83-108) mmHg ABG Total CO2 26 H (19-24) mmol/L ABG O2 Saturation 100.0 H (94-97) % Chloride (98-107) mmol/L BUN (7-17) mg/dL Glucose (74-99) mg/dL POC Glucose (mg/dL) 116 H (70-110) mg/dL Magnesium (1.6-2.3) mg/dL Ammonia (<30) umol/L TSH (0.465-4.680) mIU/L Urine Opiates Screen (NotDetected)
[2024-02-14 14:59] VITALS: BMI 45.7
[2024-02-14 15:08] LABS: ABG Base Excess 0.9 mmol/L
--- NOTE | 2024-02-14 15:11 | P.PN ---
Subjective Progress Note Date: 02/14/24 I am following-up with patient and she is accompanied with her mother who is at bedside who states while she was off sedation she was looking at her and felt patient was doing better. It seems the patient got agitated so sedation was restarted. The mother denies patient has history of seizures in the past. Objective - Vital Signs Vital signs: Vital Signs Temp 98.3 F 02/14/24 12:00 Pulse 75 02/14/24 13:45 Resp 20 02/14/24 13:45 BP 116/72 02/14/24 13:45 Pulse Ox 97 02/14/24 13:45 FiO2 30 02/14/24 12:00 Intake & Output 02/13/24 02/14/24 02/14/24 18:59 06:59 18:59 Intake Total 2711.403 9972.462 770.656 Output Total 2270 957 255 Balance -1136.900 87.462 515.656 Weight 113.5 kg 113.5 kg Intake: IV 930 858 490 0.9 ART Line 30 33 15 Potassium Chloride 20 meq 100 In Water For Injection 1 100ml.bag @ 50 mls/hr IVPB Q2H [facility] Rx#: [id number] Sodium Chloride 0.9% 1, 900 825 375 000 ml @ 75 mls/hr IV . [id number] [facility] Rx#:[id number] Intake, IV Titration 203.100 186.462 280.656 Amount Clevidipine Butyrate 25 3.100 0.867 mg In Empty Bag 1 bag @ 1 MG/HR 2 mls/hr IV .Q24H [facility] Rx#:[id number] propofoL 1,000 mg In 200.000 186.462 279.789 Empty Bag 1 bag @ 15 MCG/ KG/MIN 9.536 mls/hr IV . [id number] [facility] Rx#:[id number] Output: Urine 2270 957 255 Other: Voiding Method Indwelling Catheter Indwelling Catheter Indwelling Catheter ABP, PAP, CO, CI - Last Documented Arterial Blood Pressure 127/64 - Exam General: Lying in bed and does not appear in acute distress. Respiratory: Intubated on ventilator. Neuro: Limited. Sedation (IV Propofol 55mcg/kg/min) was restarted. She is moderately drowsy but is awakeable to voice. She followed minimal simple commands (smiling on commands). No facial weakness. Some of the workup during this hospital visit consisted of: Patient is afebrile White blood cell is trending up of 22.6 thousand AST is 82 and ALT is 162 which is slightly trended up. Potassium is 3.2. TSH: 0.156 and free T4: 1.88 Ammonia is 30 (normal is <30). CT of the head is reported as no acute intracranial process. Partially visualized support tubes. 1 of which curls insurance in the posterior nasal cavity. Personally reviewed the CT and there is no acute or subacute stroke. Other images of the abdomen pelvis is suggestive of atelectasis. Carotid duplex: suboptimal study. No hemodynamically significant stenosis clearly identified bilaterally. Urine culture is no growth. - Labs CBC & Chem 7: 02/14/24 03:25 02/14/24 03:25 Labs: Abnormal Lab Results - Last 24 Hours (Table) 02/13/24 02/13/24 02/13/24 Range/Units 20:12 20:12 23:27 WBC (3.8-10.6) k/uL RDW (11.5-15.5) % Neutrophils # (1.3-7.7) k/uL ABG pO2 (83-108) mmHg ABG Total CO2 (19-24) mmol/L ABG O2 Saturation (94-97) % Chloride (98-107) mmol/L BUN (7-17) mg/dL Glucose (74-99) mg/dL POC Glucose (mg/dL) (70-110) mg/dL Magnesium (1.6-2.3) mg/dL Ammonia 30 H (<30) umol/L TSH 0.156 L (0.465-4.680) mIU/L Urine Opiates Screen Detected H (NotDetected) 02/14/24 02/14/24 02/14/24 Range/Units 00:03 03:25 03:25 WBC 11.5 H (3.8-10.6) k/uL RDW 18.1 H (11.5-15.5) % Neutrophils # 9.4 H (1.3-7.7) k/uL ABG pO2 (83-108) mmHg ABG Total CO2 (19-24) mmol/L ABG O2 Saturation (94-97) % Chloride 112 H (98-107) mmol/L BUN 5 L (7-17) mg/dL Glucose 109 H (74-99) mg/dL POC Glucose (mg/dL) 116 H (70-110) mg/dL Magnesium 2.6 H (1.6-2.3) mg/dL Ammonia (<30) umol/L TSH (0.465-4.680) mIU/L Urine Opiates Screen (NotDetected) 02/14/24 02/14/24 Range/Units 05:30 06:36 WBC (3.8-10.6) k/uL RDW (11.5-15.5) % Neutrophils # (1.3-7.7) k/uL ABG pO2 173 H (83-108) mmHg ABG Total CO2 26 H (19-24) mmol/L ABG O2 Saturation 100.0 H (94-97) % Chloride (98-107) mmol/L BUN (7-17) mg/dL Glucose (74-99) mg/dL POC Glucose (mg/dL) 116 H (70-110) mg/dL Magnesium (1.6-2.3) mg/dL Ammonia (<30) umol/L TSH (0.465-4.680) mIU/L Urine Opiates Screen (NotDetected) Assessment and Plan Assessment: This is a 33-year-old woman had gastric sleeve on December 20, 2023 and has been having abdominal complications since then presents to the emergency department on 0 01/13/2024 for abdominal pain. It seems today while in the medical floor the patient was thrashing, very incoherent breathing 30-40 times a minute and a heart rate in the 180s. Patient was transferred to ICU and was intubated on a ventilator and is on IV propofol. CT of the head is unremarkable for any acute or subacute stroke. Patient is having elevated white blood cell. Afebrile. Also her blood pressure was elevated earlier this morning of the systolic blood pressure in the high 190s diastolic in the 100. Altered mental status seems due to metabolic encephalopathy. Patient is having respiratory distress. Rule out underlying infection. Routine EEG preliminary is negative for seizure---mentation is improving while off sedation briefly per mother. Tachypneic Tachycardia Slight transaminitis Abdominal pain Recent gastric sleeve on December 20, 2023 Plan: Preliminary Routine EEG: Is abnormal. The background slowing is suggestive of mild encephalopathy. There is no epileptiform discharges or seizure. Will defer the rest of the medical management to primary team and other specialist Plan discussed with the patient's mother who is at bedside. Time with Patient: Less than 30
[2024-02-14] MEDS ORDERED: HYDROmorphone 1 MG/ML 1 ML SYRINGE IVP PRN (17:47)
[2024-02-14] MEDS: HYDROmorphone 1 MG/ML 1 ML SYRINGE IVP PRN (20:16)
[2024-02-14] MEDS: IPRATROPIUM-ALBUTEROL 3 ML NEB INHALATION SCH (20:27)
--- NOTE | 2024-02-14 21:45 | EEG ---
ELECTROENCEPHALOGRAM REPORT CLINICAL HISTORY: This is a 33-year-old woman with altered mental status. The video EEG is obtained to evaluate for seizure epileptiform activity. RELEVANT MEDICATION: IV propofol. EEG TYPE: A routine 21-channel EEG with video using the 10/20 electrode placement system. DESCRIPTION: The patient is intubated on a ventilator. The background consists of [id number] voltage of 9.5 to 10 hertz activity intermixed with delta activity. There is no focal slowing. Interictal and ictal is none. ACTIVATION PROCEDURE: Photic stimulation did not evoke a posterior driving response. There is no abnormality during the photic stimulation. Hyperventilation is not performed. CLINICAL INTERPRETATION: This is an abnormal routine EEG. The background slowing is suggestive of mild encephalopathy. Otherwise, there is no focal slowing, epileptiform discharge, or seizure on the EEG. Clinical correlation is recommended. CHADD / GAGAN: [id number] /
[2024-02-15 05:15] LABS: ABG Base Excess 2.1 mmol/L; ABG HCO3 27 mmol/L (21-25); ABG Oxygen Saturation 99.6 % (94-97); ABG PCO2 44 mmHg (35-45); ABG PO2 140 mmHg (83-108); Allen Test Performed? Yes
[2024-02-15 05:15] LABS: African American GFR (CKD) >90 (>60 ml/min/1.73 sqM); Anion Gap 3 mmol/L; Blood Urea Nitrogen 8 mg/dL (7-17); Calcium 8.1 mg/dL (8.4-10.2); Carbon Dioxide 28 mmol/L (22-30); Chloride 110 mmol/L (98-107); Glucose 120 mg/dL (74-99); Non-African American GFR(CKD) >90 (>60 ml/min/1.73 sqM); Potassium 3.4 mmol/L (3.5-5.1); Sodium 141 mmol/L (137-145)
[2024-02-15 05:32] LABS: Anisocytosis Slight; Basophils % (A) 0 %; Eosinophils # (A) 0.1 k/uL (0-0.7); Eosinophils % (A) 0 %; HCT 37.3 % (34.0-46.0); HGB 11.8 gm/dL (11.4-16.0); Hypochromasia Slight; Lymphocytes # (A) 1.4 k/uL (1.0-4.8); Lymphocytes % (A) 10 %; MCH 27.1 pg (25.0-35.0); MCHC 31.6 g/dL (31.0-37.0); MCV 85.7 fL (80.0-100.0); Mean Platelet Volume 12.9; Monocytes # (A) 0.7 k/uL (0-1.0); Monocytes % (A) 5 %; Neutrophils # (A) 12.2 k/uL (1.3-7.7); Neutrophils % (A) 84 %; Platelet Count 178 k/uL (150-450); RBC 4.35 m/uL (3.80-5.40); RDW 17.8 % (11.5-15.5); WBC 14.5 k/uL (3.8-10.6)
[2024-02-15 05:37] LABS: Glucose,Whole Blood 108 mg/dL (70-110)
[2024-02-15] MEDS: POTASSIUM CHLORIDE 20 MEQ in WATER FOR INJECTION 1 100ML.BAG IVPB SCH (05:42)
--- NOTE | 2024-02-15 08:17 | XR ---
EXAMINATION TYPE: XR chest 1V portable DATE OF EXAM: 02/15/2024 5:20 AM CLINICAL INDICATION:Female, 33 years old with history of Tube placement; COMPARISON: Chest radiograph from one day prior. TECHNIQUE: XR chest 1V portable Frontal view of the chest. FINDINGS: Lungs/Pleura: Right middle lobe airspace opacities. There is no evidence of pleural effusion, focal c onsolidation, or pneumothorax. Pulmonary vascularity: Unremarkable. Heart/mediastinum: Cardiomediastinal silhouette is unremarkable. Musculoskeletal: No acute osseous pathology. Other findings: None Lines/Tubes: Endotracheal tube with distal tip 4.2 cm above the claudio. Nasogastric tube with its distal tip and side-port projecting under the diaphragm. Left central venous catheter with distal tip at the cavoatrial junction. IMPRESSION: Right middle lobe airspace opacities.
--- NOTE | 2024-02-15 11:19 | P.PN ---
Subjective Progress Note Date: 02/15/24 Principal diagnosis: Respiratory failure. Pulmonary consult dated February 13, 2024. This is a 33-year-old female with a history of gastric sleeve procedure on December [address] Liu, who presents to the emergency department, on February 08, complaining of abdominal pain. The patient was seen earlier in January, for abdominal pain, and a CT found a possible anastomotic leak, and she was sent down to [facility]. Apparently at [facility], she had a EGD, with dilatation. She went home and was able to eat after the fifth day. Over the last 3 days, prior to this admission, she was unable to hold down any water. She does have epigastric abdominal pain. She denies any fever or chills. A rapid response was called on this patient, earlier today, February 12, and with my charge nurse from the ICU went up to the room, the patient was thrashing about, was very incoherent, was breathing 30-40 times a minute, and had a heart rate of 180 bpm. For that reason, we transferred the patient down to the intensive care unit, for further monitoring and management, and, the patient eventually required intubation and mechanical ventilation. That was done by the nurse clinical nurse reviewer. When I got down to the intensive care unit, I placed a left internal jugular triple-lumen catheter, and a right femoral arterial line, for further management and monitoring. Patient has a history of gastroesophageal reflux disease, obstructive sleep apnea syndrome, iron deficiency anemia, recent gastric sleeve procedure, hypothyroidism, and possible COPD and that she is on Symbicort, Spiriva, and albuterol, as outpatient medications. Count is 22.6, hemoglobin 11.8, hematocrit 38.8, and platelet count 261,000. Blood gases after intubation show pO2 of 263, pCO2 of 41, pH is 7.27. Sodium 145, potassium 3.2, chlorides 110, CO2 16, anion gap 19, BUN 6, creatinine 0.74. Glucose is 215. Magnesium 1.3, calcium is 8.6. We did ask for lithium level. Urine is negative. Thus far urine and blood sampling is negative. It shows I properly placed endotracheal tube, and the tip of the central line, in the area of the right atrium/superior vena cava junction. Progress note dated February 14, 2024. This is a 33-year-old female who was seen yesterday in consultation. Please see my note above. The patient was on the general medical floor, and developed tachycardia, hypertension, tachypnea, and significant mental status changes, with significant disorientation, confusion, agitation, etc. The patient was transferred down to the intensive care unit, yesterday, February 12, and was intubated for airway protection. A central line and arterial line were placed subsequent to that. She remains on the mechanical ventilator. She is on volume assist-control, rate 20, tidal volume 350, FiO2 40%, PEEP of 5. Blood gases show pO2 173, pCO2 37, pH is 7.44. The FiO2 is reduced down to 30%. The patient is on propofol at 55 mcg/kg/min, saline at 75 cc an hour, and Cleviprex, which has been weaned off. The patient will have a daily interruption of sedation. Will also start the patient on tube feeds, should she not progress. White count 11.5, hemoglobin 11.6, hematocrit 36.7, and platelet count was normal. Sodium 141, potassium 3.5, chlorides 112, CO2 23, BUN 5, and creatinine 0.64. Glucose is 116. Magnesium 2.6. Calcium 8.4. Urine and blood sampling are thus far negative. The chest x-ray appears to be relatively normal, save for the endotracheal tube, and the central line. This note dated February 15, 2024. 33-year-old black female, who is seen today in room 259. She remains on mecha nical ventilator. She is on volume assist-control, rate 20, tidal volume 350, FiO2 30%, PEEP of 5. Blood gases show pO2 of 140, pCO2 of 44, pH is 7.4. The FiO2 is now down to 25%. She is getting saline at 75 cc an hour propofol at 50 mcg/kg/min. She is not receiving any tube feeds at this time. White count 14.5, hemoglobin 11.8, hematocrit 37.3, platelet count 178,000. D-dimer 6.03. Sodium 141, potassium 3.4, chlorides 110, CO2 28, BUN 8, creatinine 0.58. Calcium is 8.1. Glucose is normal. Thus far blood, urine, and sputum sampling is negative. The patient's chest x-ray is rotated, but it may show some infiltrate, and or atelectasis at the right lung base. Objective - Vital Signs Vital signs: Vital Signs Temp 98.4 F 02/15/24 08:00 Pulse 63 02/15/24 11:00 Resp 21 02/15/24 11:00 BP 118/73 02/15/24 11:00 Pulse Ox 98 02/15/24 11:00 FiO2 25 02/15/24 09:24 Intake & Output 02/14/24 02/15/24 02/15/24 18:59 06:59 18:59 Intake Total 8278.742 8082.517 442.000 Output Total 1230 685 114 Balance 267.866 839.517 328.000 Weight 113.5 kg 113.8 kg Intake: IV 1036 936 342 0.9 ART Line 36 36 15 Potassium Chloride 20 meq 100 In Water For Injection 1 100ml.bag @ 50 mls/hr IVPB Q2H ELPIDIO Rx#: [id number] Sodium Chloride 0.9% 1, 900 900 327 000 ml @ 75 mls/hr IV . [id number] ELPIDIO Rx#:[id number] Intake, IV Titration 461.866 588.517 100.000 Amount Clevidipine Butyrate 25 21.867 36.467 mg In Empty Bag 1 bag @ 1 MG/HR 2 mls/hr IV .Q24H ELPIDIO Rx#:[id number] propofoL 1,000 mg In 439.999 552.050 100.000 Empty Bag 1 bag @ 15 MCG/ KG/MIN 9.536 mls/hr IV . [id number] ELPIDIO Rx#:[id number] Output: Urine 1230 685 114 Other: Voiding Method Indwelling Catheter Indwelling Catheter Indwelling Catheter ABP, PAP, CO, CI - Last Documented Arterial Blood Pressure 134/73 - Exam No acute distress, patient with propofol, with an orally placed endotracheal tube, and NG tube. HEENT examination is grossly unremarkable. Neck supple. Full range of motion. No adenopathy thyromegaly or neck vein distention. The patient has a left internal jugular triple-lumen catheter. Cardiovascular examination reveals regular rhythm rate. S1-S2 normal. No S3 or S4. No discernible murmur noted. Heart rate 63 bpm. Lungs reveal scattered rhonchi. No wheezes or crackles. Breath sounds equal bilaterally. Saturations are 98 %. Abdomen obese, soft, without bowel sounds. No masses. The patient has a right femoral arterial line. Extremities are intact. No cyanosis clubbing or edema. Skin is without rash or lesion. Neurologic examination cannot be assessed at this time. - Labs CBC & Chem 7: 02/15/24 04:48 02/15/24 04:48 Labs: Abnormal Lab Results - Last 24 Hours (Table) 02/15/24 02/15/24 02/15/24 Range/Units 04:48 04:48 04:58 WBC 14.5 H (3.8-10.6) k/uL RDW 17.8 H (11.5-15.5) % Neutrophils # 12.2 H (1.3-7.7) k/uL D-Dimer (<0.60) mg/L FEU ABG pO2 140 H (83-108) mmHg ABG HCO3 27 H (21-25) mmol/L ABG O2 Saturation 99.6 H (94-97) % Potassium 3.4 L (3.5-5.1) mmol/L Chloride 110 H (98-107) mmol/L Glucose 120 H (74-99) mg/dL Calcium 8.1 L (8.4-10.2) mg/dL 02/15/24 Range/Units 05:45 WBC (3.8-10.6) k/uL RDW (11.5-15.5) % Neutrophils # (1.3-7.7) k/uL D-Dimer 6.03 H (<0.60) mg/L FEU ABG pO2 (83-108) mmHg ABG HCO3 (21-25) mmol/L ABG O2 Saturation (94-97) % Potassium (3.5-5.1) mmol/L Chloride (98-107) mmol/L Glucose (74-99) mg/dL Calcium (8.4-10.2) mg/dL Microbiology - Last 24 Hours (Table) 02/14/24 00:18 Gram Stain - Preliminary Sputum Sputum Culture - Preliminary 02/09/24 21:05 Blood Culture - Final Blood 02/09/24 21:00 Blood Culture - Final Blood Assessment and Plan Assessment: Acute deterioration, with mental status changes, hypertension, tachycardia, and tachypnea, with impending respiratory arrest, S/P intubation and mechanical ventilation, on February 13, 2024. Obesity, status post gastric sleeve procedure, December 20, 2023. Possible pneumonia, right lung. Recent evaluation at [facility], status post EGD, with dilatation. Hypothyroidism. Possible underlying asthma based on the patient's outpatient medications. History of gastroesophageal reflux disease. History of sleep apnea syndrome. History of iron deficiency anemia. History of anxiety/depression, and bipolar disorder. Plan: Plan dated February 13, 2024. The patient apparently had an acute/abrupt change, and her clinical status, with mental status changes, tachycardia, hypertension, tachypnea, and impending respiratory failure. The patient was transferred down to the intensive care unit, and intubated by the DRYWALL WORKER. We placed a right femoral arterial line, and a left internal jugular triple-lumen catheter, for better monitoring and ocdy gement. Not sure exactly what happened to this patient. Her lithium level was quite low. The patient recently had a gastric sleeve procedure on December 19, and, was seen on the , for possible anastomotic leak, and transferred down to [facility], where she had an EGD, with dilatation. The patient was to have an EGD with dilatation today, but obviously, because of her acute deterioration, that was not done. We will continue to follow make recommendations along the way. Labs, x-rays, and medications are reviewed. Prognosis is guarded. We will continue to follow make recommendations along the way. Plan dated February 14, 2024. The patient is seen today in room 259. The patient remains on the mechanical ventilator. Because of her acute mental status changes, she went for CT scan of the brain, which was negative. She has been seen by neurology. Labs, x-rays, medications are reviewed. Currently, her blood gases are reasonable, with a pO2 of 173, pCO2 37, pH of 7.44. The FiO2 was reduced down to 30%, from 40%. The patient remains on propofol at 55 mcg/kg/min, and saline at 75 cc an hour. The patient will have a daily interruption of sedation, and potential spontaneous breathing trial today. Should she fail the spontaneous breathing trial, the patient will need to be started on tube feedings. Labs, x-rays, medications are reviewed. Prognosis is guarded. We will continue to follow the patient and make recommendations. Plan dated February 15, 2024. The patient was seen again in room 259. Mom is at the bedside. Will attempt a daily interruption of sedation and spontaneous breathing trial. Oxygenation, and ventilation are both excellent. The patient may tolerate extubation. Labs, x-rays, and medications are reviewed. A procalcitonin level was ordered. The patient may benefit from antibiotics. The chest x-ray is rotated, but may showed an atelectatic change or infiltrate at the right lung base. We will attempt a daily interruption of sedation, and a spontaneous breathing trial today. The patient may be transferred to [facility]. I spoke to the surgeon, who is thinking about possibility of transferring the patient to the outside hospital. If that is the case, it might be safer to not extubate the patient. We will continue to follow, and make recommendations. I did speak to the mother who is at the bedside. I told her what our plan was. Time with Patient: Greater than 30
[2024-02-15 12:02] LABS: Glucose,Whole Blood 99 mg/dL (70-110)
--- NOTE | 2024-02-15 13:09 | P.PN ---
Subjective Progress Note Date: 02/15/24 CHIEF COMPLAINT: Nausea and vomiting HISTORY OF PRESENT ILLNESS: Patient is currently in the ICU intubated and on mechanical ventilation. They are working on weaning patient from the vent possibly today. Patient had recent EGD with dilation for the hospital. Has known history of sleeve gastrectomy completed on December 20, 2023. Since hospitalization she has had respiratory failure, possible pneumonia and metabolic encephalopathy. They are working on extubating patient today. Afebrile. WBC 14.5. PHYSICAL EXAM: VITAL SIGNS: Reviewed. GENERAL: no acute distress. ABDOMEN: Soft. Nondistended. Nontender. ASSESSMENT: 1. Dysphagia likely related to scarring from her sleeve gastrectomy 2. Recent EGD with dilation at [facility] 3. Dehydration 4. Metabolic encephalopathy 5. Respiratory failure PLAN: -Recommend transfer to [facility]. Dr. Liu talked to the transfer team. Transfer is in process. Dr. Liu had reviewed CAT scan. [place] that there was no significant change from prior CAT scan. However, he recommends that patient is transferred to [facility] for an advanced endoscopy for further evaluation of patient's sleeve. -Consult dietitian for TPN for nutrition support Physician Printed Circuit Board Layout Designer note has been reviewed by physician. Signing provider agrees with the documented findings, assessment, and plan of care. Objective - Vital Signs Vital signs: Vital Signs Temp 98.4 F 02/15/24 08:00 Pulse 70 02/15/24 12:01 Resp 21 02/15/24 11:00 BP 118/73 02/15/24 11:00 Pulse Ox 98 02/15/24 11:00 FiO2 25 02/15/24 11:46 Intake & Output 02/14/24 02/15/24 02/15/24 18:59 06:59 18:59 Intake Total 2207.406 3592.517 542.000 Output Total 1230 685 114 Balance 267.866 839.517 428.000 Weight 113.5 kg 113.8 kg Intake: IV 1036 936 342 0.9 ART Line 36 36 15 Potassium Chloride 20 meq 100 In Water For Injection 1 100ml.bag @ 50 mls/hr IVPB Q2H [facility]IO Rx#: [id number] Sodium Chloride 0.9% 1, 900 900 327 000 ml @ 75 mls/hr IV . [id number] ELPIDIO Rx#:[id number] Intake, IV Titration 461.866 588.517 200.000 Amount Clevidipine Butyrate 25 21.867 36.467 mg In Empty Bag 1 bag @ 1 MG/HR 2 mls/hr IV .Q24H ELPIDIO Rx#:[id number] propofoL 1,000 mg In 439.999 552.050 200.000 Empty Bag 1 bag @ 15 MCG/ KG/MIN 9.536 mls/hr IV . [id number] ELPIDIO Rx#:[id number] Output: Urine 1230 685 114 Other: Voiding Method Indwelling Catheter Indwelling Catheter Indwelling Catheter ABP, PAP, CO, CI - Last Documented Arterial Blood Pressure 134/73 - Labs CBC & Chem 7: 02/15/24 04:48 02/15/24 04:48 Labs: Abnormal Lab Results - Last 24 Hours (Table) 02/15/24 02/15/24 02/15/24 Range/Units 04:48 04:48 04:58 WBC 14.5 H (3.8-10.6) k/uL RDW 17.8 H (11.5-15.5) % Neutrophils # 12.2 H (1.3-7.7) k/uL D-Dimer (<0.60) mg/L FEU ABG pO2 140 H (83-108) mmHg ABG HCO3 27 H (21-25) mmol/L ABG O2 Saturation 99.6 H (94-97) % Potassium 3.4 L (3.5-5.1) mmol/L Chloride 110 H (98-107) mmol/L Glucose 120 H (74-99) mg/dL Calcium 8.1 L (8.4-10.2) mg/dL 02/15/24 Range/Units 05:45 WBC (3.8-10.6) k/uL RDW (11.5-15.5) % Neutrophils # (1.3-7.7) k/uL D-Dimer 6.03 H (<0.60) mg/L FEU ABG pO2 (83-108) mmHg ABG HCO3 (21-25) mmol/L ABG O2 Saturation (94-97) % Potassium (3.5-5.1) mmol/L Chloride (98-107) mmol/L Glucose (74-99) mg/dL Calcium (8.4-10.2) mg/dL Microbiology - Last 24 Hours (Table) 02/14/24 00:18 Gram Stain - Preliminary Sputum Sputum Culture - Preliminary 02/09/24 21:05 Blood Culture - Final Blood 02/09/24 21:00 Blood Culture - Final Blood
[2024-02-15] MEDS ORDERED: SODIUM CHLORIDE 0.9% 1,000 ML BAG IV STA (15:05)
[2024-02-15] MEDS: CISATRACURIUM 2 MG/ML 5 ML VIAL IV ONE (15:16)
[2024-02-15] MEDS: SODIUM CHLORIDE 0.9% 500 ML 500 ML IV ONE (15:18)
--- NOTE | 2024-02-15 15:33 | P.DS ---
Providers Date of admission: 02/09/24 20:35 Expected date of discharge: 02/15/24 Attending physician: Rogelio Liu Consults: 02/10/24 08:55 Consult Physician Routine Consulting Provider: Justin Molina Consult Reason/Comments: medical management Do you want consulting provider notified?: Yes 02/13/24 08:30 Consult Physician Stat Consulting Provider: Justin Molina Consult Reason/Comments: ICU management Do you want consulting provider notified?: Already Contacted 02/13/24 12:10 Consult Physician Routine Consulting Provider: Jesus Sung Consult Reason/Comments: AMS, aphasic Do you want consulting provider notified?: Already Contacted 02/14/24 17:48 Consult Physician Routine Consulting Provider: Jose Sung Consult Reason/Comments: ICU management Do you want consulting provider notified?: Already Contacted Primary care physician: Justin Molina [facility] Course: Discharge diagnosis 1. Dysphagia likely related to scarring from her sleeve gastrectomy 2. Recent EGD with dilation at [facility] 3. Dehydration 4. Metabolic encephalopathy 5. Respiratory failure Hospital course This is a 33-year-old female with a history of sleeve gastrectomy with Dr. Liu on December 19. Patient presented to the emergency room with complaints of nausea and vomiting over the last 3 days. Patient was seen at [facility] earlier this month and had EGD with dilation. Patient has had about a 50 pound weight loss since surgery. Patient was mildly tachycardic on admission with evidence of dehydration. Patient was initially scheduled to have an EGD on Tuesday this week. However, patient went into respiratory failure and required to be intubated and placed on mechanical ventilation. She was hypotensive with tachycardia and tachypnea. Patient was undergoing sedation holiday today. They are possibly going to extubate her. However, Dr. Liu does recommend that patient be transferred to [facility] for an advanced endoscopy for further evaluation of her sleeve. Patient in the process of being transferred to [facility]. Patient is stable for transfer. Physician Supervisor [employer] note has been reviewed by physician. Signing provider agrees with the documented findings, assessment, and plan of care. Patient Condition at Discharge: Stable Plan - Discharge Summary Discharge Rx Participant: No New Discharge Prescriptions: No Action Levothyroxine Sodium 88 mcg PO DAILY traZODone HCL [Desyrel] 100 mg PO HS PRN PRN Reason: Insomnia busPIRone HCl [Buspar] 10 mg PO BID Hyoscyamine Sulfate [Hyoscyamine Sulfate SL] 0.125 - 0.25 mg SL Q6H PRN PRN Reason: cramps QUEtiapine [SEROquel] 100 mg PO HS 30 Days #30 tab buPROPion XL [Wellbutrin XL] 150 mg PO DAILY 30 Days #30 tab Omeprazole [PriLOSEC] 40 mg PO DAILY #90 cap Ondansetron Odt [Zofran Odt] 4 mg PO Q8HR PRN #9 tab PRN Reason: Nausea Tiotropium 2.5 Mcg/Puff [Spiriva Respimat 2.5 Mcg] 2 puff INHALATION RT-DAILY Budesonide/Formoterol Fumarate [Symbicort 160-4.5 Mcg Inhaler] 2 puff INHALATION RT-BID [place] Carbonate ER [Lithobid] 900 mg PO HS Topiramate [Topamax] 50 mg PO HS Acetaminophen [Tylenol] 325 - 650 mg PO Q6H PRN PRN Reason: Pain Or Fever > 100.5 methocarbamoL [Robaxin-750] 750 mg PO QID PRN PRN Reason: Muscle Pain Discharge Medication List QUEtiapine [SEROquel] 100 mg PO HS 30 Days #30 tab 03/30/23 [Rx] buPROPion XL [Wellbutrin XL] 150 mg PO DAILY 30 Days #30 tab 03/30/23 [Rx] Levothyroxine Sodium 88 mcg PO DAILY 10/17/23 [History] Omeprazole [PriLOSEC] 40 mg PO DAILY #90 cap 12/22/23 [Rx] Ondansetron Odt [Zofran Odt] 4 mg PO Q8HR PRN #9 tab 12/22/23 [Rx] Budesonide/Formoterol Fumarate [Symbicort 160-4.5 Mcg Inhaler] 2 puff INHALATION RT-BID 01/23/24 [History] [place] Carbonate ER [Lithobid] 900 mg PO HS 01/23/24 [History] Tiotropium 2.5 Mcg/Puff [Spiriva Respimat 2.5 Mcg] 2 puff INHALATION RT-DAILY 01/23/24 [History] Topiramate [Topamax] 50 mg PO HS 01/23/24 [History] busPIRone HCl [Buspar] 10 mg PO BID 01/23/24 [History] traZODone HCL [Desyrel] 100 mg PO HS PRN 01/23/24 [History] Acetaminophen [Tylenol] 325 - 650 mg PO Q6H PRN 02/09/24 [History] Hyoscyamine Sulfate [Hyoscyamine Sulfate SL] 0.125 - 0.25 mg SL Q6H PRN 02/09/24 [History] methocarbamoL [Robaxin-750] 750 mg PO QID PRN 02/09/24 [History] Follow up Appointment(s)/Referral(s): Justin Molina MD [Primary Care Provider] - 1-2 days
[2024-02-15 16:12] VITALS: PULSE 84
[2024-02-15 16:29] VITALS: BP 121/72; RESP 22; TEMP 98.8
--- NOTE | 2024-02-16 02:13 | PN ---
PROGRESS NOTE The patient is being transferred to [facility] for further workup on her acute on chronic abdominal pain and ventilator failure for complication of a gastric sleeve with esophageal dilation. D-dimer is elevated. I ordered MRI of her abdomen to rule out mesenteric ischemia she is getting transferred. PHYSICAL EXAMINATION: VITAL SIGNS: Temp 98.4, pulse , respiratory rate 18 to 21, FiO2 is 25, pulse ox 98%, blood pressure 118/73. BMI is over 30. endotracheal tube, NG tube. SKIN: No rash. EXTREMITIES: Generalized edema, obesity, right femoral line. LUNGS: Scattered rhonchi. HEART: S1, S2. She has acute deterioration in mental status change and acute abdominal pain out of proportion she has had before, which caused her mental status changes, hypertension, tachycardia, tachypnea, status post intubation, mechanical ventilation, rule out mesentery ischemia, doubt with aspiration pneumonia, hypothyroidism. She has asthma, GERD, sleep apnea. She needs to be ruled out for mesenteric ischemia at this time. I ordered MRI of the abdomen that they can do this down at [facility]. Prophylactic antibiotics have been given. Prognosis is guarded. Her main problem her family says when she went on the ventilator is acute abdominal pain which needs to be worked up and this had to be worked up at [facility] as she is leaving. CHADD / GAGAN: [id number] /
--- NOTE | 2024-02-16 02:51 | PN ---
PROGRESS NOTE DATE OF SERVICE: 02/14/2024 SUBJECTIVE: In the ICU on the ventilator. She is responding. She clearly had severe intractable abdominal pain for unclear reasons and was reintubated. She became hysterical. She has history of asthma outpatient. She is responding on the vent. She is stable on the vent. Blood pressure 120s over 60s, pulse 20-21, respiratory rate 18 to 20, and pulse 70. Labs are pending. D-dimer is elevated. Discussed with the family. They wanted something done to find out what is wrong with her. She had acute retractable abdominal pain out of the blue for no reason. Talked to them about possibly an ischemic bowel, maybe a blood clot was thrown off. I could order MRI of the abdomen as CAT scan did not show anything. Elevated D-dimer versus angiogram. Discussed with Dr. Liu. He does not feel that this is a cause, but elevated white count supports this, elevated D-dimer supports this. I ordered the MRI. Will see if it gets done. OBJECTIVE: VITAL SIGNS: Temp 97.7, blood pressure 103/64, O2 97-98. CARDIOVASCULAR: S1, S2. LUNGS: Transmitted upper sounds. GI: She is grimacing all the time. She does not really grimace more when I push on her belly. She is unable to respond. She is status post gastric sleeve with esophageal dilation done at [facility] and now she is back again. She wants to have it done again, but due to this happening, she was held off further, tried to wean off vent as tolerated and try to find out what is going on with her belly. Ordered MRI. Prognosis guarded. MMODL / IJN: [id number] /
== END 2024-02-15 17:00 | disposition short-term general hospital (02) | DRG 252 ==
LOC: EC 15:56 → 4SSUR 20:34 → OBSVTOIN 20:35 → 4SSUR 22:25 → 2SICU 02-13 08:21
PROVIDERS: ADMIT Surgery; ATTEND Surgery
PROC: 02HV33Z Insertion of Infusion Device into Superior Vena Cava, Percutaneous Approach (ICD-10-PCS; principal; 2024-02-13)
PROC: 04HY32Z Insertion of Monitoring Device into Lower Artery, Percutaneous Approach (ICD-10-PCS; 2024-02-13)
PROC: 4A133B1 Monitoring of Arterial Pressure, Peripheral, Percutaneous Approach (ICD-10-PCS; 2024-02-13)
PROC: 4A133J1 Monitoring of Arterial Pulse, Peripheral, Percutaneous Approach (ICD-10-PCS; 2024-02-13)
PROC: 0BH18EZ Insertion of Endotracheal Airway into Trachea, Via Natural or Artificial Opening Endoscopic (ICD-10-PCS; 2024-02-13)
PROC: 5A1945Z Respiratory Ventilation, 24-96 Consecutive Hours (ICD-10-PCS; 2024-02-13)
DX: K91.0 Vomiting following gastrointestinal surgery (principal); J96.01 Acute respiratory failure with hypoxia; F31.9 Bipolar disorder, unspecified; Z68.42 Body mass index [BMI] 45.0-49.9, adult; G93.41 Metabolic encephalopathy; R13.19 Other dysphagia; K22.2 Esophageal obstruction; R47.01 Aphasia; I95.9 Hypotension, unspecified; D50.9 Iron deficiency anemia, unspecified; E66.9 Obesity, unspecified; J44.89 Other specified chronic obstructive pulmonary disease; E03.9 Hypothyroidism, unspecified; I10 Essential (primary) hypertension; E86.0 Dehydration; K95.89 Other complications of other bariatric procedure; R74.01 Elevation of levels of liver transaminase levels; G47.33 Obstructive sleep apnea (adult) (pediatric); K21.9 Gastro-esophageal reflux disease without esophagitis; F41.9 Anxiety disorder, unspecified; G89.29 Other chronic pain; R79.89 Other specified abnormal findings of blood chemistry; K59.00 Constipation, unspecified; N39.0 Urinary tract infection, site not specified; Y84.8 Other medical procedures as the cause of abnormal reaction of the patient, or of later complication, without mention of misadventure at the time of the procedure; Z79.890 Hormone replacement therapy; Z79.899 Other long term (current) drug therapy; Z79.51 Long term (current) use of inhaled steroids; Z91.040 Latex allergy status; Z72.0 Tobacco use; Z95.1 Presence of aortocoronary bypass graft
CPT/HCPCS: 36415; 70450; 71045; 71260; 74177; 80048; 80053; 80178; 80306; 81001; 81003; 81025; 82140; 82805; 83605; 83690; 83735; 84132; 84145; 84439; 84443; 85025; 85027; 85379; 87040; 87070; 87086; 87205; 93880; 94002; 94003; 94640; 95822; 96361; 96374; 96375; 96376; 99285

== ENCOUNTER → 2024-02-23 | Outpatient (CLI) | payer OTHER ==
[2024-02-23] MEDS: SODIUM CHLORIDE 0.9% 1,000 ML IV SCH (11:30)
[2024-02-23] MEDS: ONDANSETRON 4 MG/2 ML VIAL IVP ONE (11:40)
[2024-02-23 11:46] VITALS: BP 135/85; PULSE 98; RESP 16; TEMP 98.4
== END ==
LOC: PROCWHC3 11:13
PROVIDERS: ATTEND Surgery
DX: E86.0 Dehydration (principal)
CPT/HCPCS: 96361; 96374; J2405; 96360

== ENCOUNTER 2024-02-27 18:28 | Emergency (ER) | payer OTHER ==
[2024-02-27 18:36] VITALS: RESP 18
--- NOTE | 2024-02-27 18:48 | ED ---
General Adult HPI - General Chief complaint: Nausea/Vomiting/Diarrhea Stated complaint: Vomiting Time Seen by Provider: 02/27/24 18:37 Source: patient, RN notes reviewed Mode of arrival: wheelchair Limitations: no limitations - History of Present Illness Initial comments: Patient is a 33-year-old female presenting to the emergency department with persistent nausea and vomiting. Patient has had limited oral intake since her gastric stapling surgery December 19. Patient was recently in the hospital and transferred to [facility] for pulmonary embolism. Patient did see her surgeon again today. Plan has been made with surgeon at [facility] to do scope with Dr. Whitney and Dr. Pérez to help her. This is scheduled for March however patient does not feel she is able to wait that long. - Related Data Home Medications Medication Instructions Recorded Confirmed Levothyroxine Sodium 88 mcg PO DAILY 10/17/23 02/27/24 Tiotropium 2.5 Mcg/Puff [Spiriva 2 puff INHALATION RT-DAILY 01/23/24 02/27/24 Respimat 2.5 Mcg] Topiramate [Topamax] 50 mg PO HS 01/23/24 02/27/24 busPIRone HCl [Buspar] 10 mg PO BID 01/23/24 02/27/24 traZODone HCL [Desyrel] 100 mg PO HS PRN 01/23/24 02/27/24 Acetaminophen [Tylenol] 325 - 650 mg PO Q6H PRN 02/09/24 02/27/24 Hyoscyamine Sulfate [Hyoscyamine 0.125 - 0.25 mg SL Q6H PRN 02/09/24 02/27/24 Sulfate SL] methocarbamoL [Robaxin-750] 750 mg PO QID PRN 02/09/24 02/27/24 Apixaban [Eliquis] 5 mg PO BID 02/23/24 02/27/24 Previous Rx's Medication Instructions Recorded QUEtiapine [SEROquel] 100 mg PO HS 30 Days #30 tab 03/30/23 buPROPion XL [Wellbutrin XL] 150 mg PO DAILY 30 Days #30 tab 03/30/23 Ondansetron Odt [Zofran Odt] 4 mg PO Q8HR PRN #9 tab 12/22/23 Allergies Allergy/AdvReac Type Severity Reaction Status Date / Time latex Allergy Rash/Hives Verified 02/27/24 20:09 Review of Systems ROS Statement: Those systems with pertinent positive or pertinent negative responses have been documented in the HPI. ROS Other: All systems not noted in ROS Statement are negative. Constitutional: Denies: fever Eyes: Denies: eye pain ENT: Denies: ear pain Respiratory: Denies: cough Cardiovascular: Denies: chest pain Endocrine: Denies: fatigue Gastrointestinal: Reports: as per HPI, abdominal pain, nausea, vomiting Genitourinary: Denies: dysuria Musculoskeletal: Denies: back pain Past Medical History Past Medical History: GERD/Reflux, Sleep Apnea/CPAP/BIPAP Additional Past Medical History / Comment(s): iron defiency anemia, currently getting iron infusions, no cpap used, pulmonary embolism 02/13/24 History of Any Multi-Drug Resistant Organisms: None Reported Past Surgical History: Bariatric Surgery, Section, Cholecystectomy, Tubal Ligation, Uterine Ablation Additional Past Surgical History / Comment(s): 2008 AND 2015 (c/s) and 2010 (cholecyst). 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 Past Anesthesia/Blood Transfusion Reactions: No Reported Reaction Past Psychological History: Anxiety, Bipolar, Depression Smoking Status: Never smoker Past Alcohol Use History: None Reported Past Drug Use History: None Reported - Past Family History Mother Family Medical History: Asthma, COPD, Diabetes Mellitus, Hypertension Additional Family Medical History / Comment(s): depression, anxiety, sleep apnea, Father Family Medical History: Hypertension Additional Family Medical History / Comment(s): arthritis General Exam Limitations: no limitations General appearance: alert, in no apparent distress Head exam: Present: normocephalic Eye exam: Present: normal appearance Neck exam: Present: normal inspection Respiratory exam: Present: normal lung sounds bilaterally Cardiovascular Exam: Present: regular rate, normal rhythm GI/Abdominal exam: Present: soft, tenderness (Mild epigastric tenderness) Extremities exam: Present: normal inspection Neurological exam: Present: alert Psychiatric exam: Present: normal affect, normal mood Skin exam: Present: normal color Course Vital Signs 02/27/24 18:31 Temperature 98.3 F Pulse Rate 106 H Respiratory 18 Rate Blood Pressure 122/82 O2 Sat by Pulse 98 Oximetry Medical Decision Making - Medical Decision Making Was pt. sent in by a medical professional or institution (, PA, HOG OPERATOR, urgent care, hospital, or custodial...) When possible be specific @ -Patient was sent from surgical clinic Did you speak to anyone other than the patient for history (EMS, parent, family, police, friend...)? What history was obtained from this source @ -Dr. Liu Did you review nursing and triage notes (agree or disagree)? Why? @ -I reviewed and agree with nursing and triage notes Were old charts reviewed (outside hosp., previous admission, EMS record, old EKG, old radiological studies, urgent care reports/EKG's, custodial records)? Report findings @ -Previous labs and admission and CTs reviewed Differential Diagnosis (chest pain, altered mental status, abdominal pain women, abdominal pain men, vaginal bleeding, weakness, fever, dyspnea, syncope, headache, dizziness, GI bleed, back pain, seizure, CVA, palpatations, mental health, musculoskeletal)? @ -Differential Abdominal Pain Women: Appendicitis, Cholecystitis, diverticulosis, ischemic bowel, pancreatitis, hepatitis, UTI, gastroenteritis, AAA, incarcerated hernia, bowel obstruction, constipation, inflammatory bowel, hepatitis, peptic ulcer disease, splenic infarction, perforated viscus, vulvitis, ovarian torsion, PID, kidney stone, placenta abruption, this is not meant to be an all-inclusive list EKG interpreted by me (3pts min.). @ -As above X-rays interpreted by me (1pt min.). @ -Abdominal x-ray does not reveal acute abnormality CT interpreted by me (1pt min.). @ -None done U/S interpreted by me (1pt. min.). @ -None done What testing was considered but not performed or refused? (CT, X-rays, U/S, labs)? Why? @ -Patient has had recent imaging including CT and therefore CT scan was thought about but not done again. What meds were considered but not given or refused? Why? @ -None Did you discuss the management of the patient with other professionals (professionals i.e. DrKayli, PA, HOG OPERATOR, lab, RT, psych nurse, case management social worker, career development engineer, te acher, chief wellness officer, cyanide case hardener)? Give summary @ -Case was discussed with Dr. Liu who does recommend transfer to [facility]. Case also discussed with Samreen and Dr. Root at [facility] in [place] who will accept transfer. Was smoking cessation discussed for >3mins.? @ -No Was critical care preformed (if so, how long)? @ -No Were there social determinants of health that impacted care today? How? (Homelessness, low income, unemployed, alcoholism, drug addiction, tr ansportation, low edu. Level, literacy, decrease access to med. care, shelter, rehab)? @ -No Was there de-escalation of care discussed even if they declined (Discuss DNR or withdrawal of care, Hospice)? DNR status @ -No What co-morbidities impacted this encounter? (DM, HTN, Smoking, COPD, CAD, Cancer, CVA, ARF, Chemo, Hep., AIDS, mental health diagnosis, sleep apnea, morbid obesity)? @ -None Was patient admitted / discharged? Hospital course, mention meds given and route, prescriptions, significant lab abnormalities, going to OR and other pertinent info. @ -Patient presents with need for dilation/EGD. Patient will be transferred to [facility] for this. Undiagnosed new problem with uncertain prognosis? @ -No Drug Therapy requiring intensive monitoring for toxicity (Heparin, Nitro, Insulin, Cardizem)? @ -No Were any procedures done? @ -No Diagnosis/symptom? @ -Intractable vomiting Acute, or Chronic, or Acute on Chronic? @ -Acute Uncomplicated (without systemic symptoms) or Complicated (systemic symptoms)? @ -Complicated with recent pulmonary embolism Side effects of treatment? @ -No Exacerbation, Progression, or Severe Exacerbation? @ -No Poses a threat to life or bodily function? How? (Chest pain, [place], PR, pneumonia, PE, COPD, DKA, ARF, appy, cholecystitis, CVA, Diverticulitis, Homicidal, Suicidal, threat to staff... and all critical care pts) @ -No - Lab Data Result diagrams: 02/27/24 18:46 02/27/24 18:46 Lab Results 02/27/24 02/27/24 02/27/24 Range/Units 18:46 18:46 18:46 WBC 7.7 (3.8-10.6) k/uL RBC 4.37 (3.80-5.40) m/uL Hgb 11.8 (11.4-16.0) gm/dL Hct 39.0 (34.0-46.0) % MCV 89.1 (80.0-100.0) fL MCH 26.9 (25.0-35.0) pg MCHC 30.2 L (31.0-37.0) g/dL RDW 19.4 H (11.5-15.5) % Plt Count 309 (150-450) k/uL MPV 8.7 Neutrophils % 65 % Lymphocytes % 25 % Monocytes % 5 % Eosinophils % 1 % Basophils % 1 % Neutrophils # 5.0 (1.3-7.7) k/uL Lymphocytes # 1.9 (1.0-4.8) k/uL Monocytes # 0.4 (0-1.0) k/uL Eosinophils # 0.1 (0-0.7) k/uL Basophils # 0.1 (0-0.2) k/uL Hypochromasia Moderate Poikilocytosis Slight Anisocytosis Slight PT 12.7 H (10.0-12.5) sec INR 1.2 H (<1.2) APTT 27.7 (22.0-30.0) sec Sodium 140 (137-145) mmol/L Potassium 3.6 (3.5-5.1) mmol/L Chloride 109 H (98-107) mmol/L Carbon Dioxide 19 L (22-30) mmol/L Anion Gap 12 mmol/L BUN <2 L (7-17) mg/dL Creatinine 0.50 L (0.52-1.04) mg/dL Est GFR (CKD-EPI)AfAm >90 (>60 ml/min/1.73 sqM) Est GFR (CKD-EPI)NonAf >90 (>60 ml/min/1.73 sqM) Glucose 76 (74-99) mg/dL Calcium 9.0 (8.4-10.2) mg/dL Total Bilirubin 0.8 (0.2-1.3) mg/dL AST 27 (14-36) U/L ALT 45 H (4-34) U/L Alkaline Phosphatase 77 (38-126) U/L Total Protein 6.2 L (6.3-8.2) g/dL Albumin 3.5 (3.5-5.0) g/dL Amylase 52 (30-110) U/L Lipase 46 (23-300) U/L Disposition Clinical Impression: Nausea and vomiting, S/P gastric sleeve procedure Disposition: OTHER INSTITUTION NOT DEFINED Is patient prescribed a controlled substance at d/c from ED?: No Referrals: Justin Molina MD [Primary Care Provider] - 1-2 days Time of Disposition: 21:10 - Out of Hospital Transfer - Req. Specs Out of Hospital Transfer - Requested Specifics: Medical ICU
[2024-02-27] MEDS: SODIUM CHLORIDE 0.9% 1,000 ML IV STA (19:00)
[2024-02-27] MEDS: ONDANSETRON 4 MG/2 ML VIAL IVP STA (19:01)
[2024-02-27] MEDS: HYDROmorphone 1 MG/ML 1 ML SYRINGE IVP STA (19:01)
[2024-02-27] MEDS: PANTOPRAZOLE 40 MG/10 ML VIAL IVP STA (19:01)
[2024-02-27 19:06] LABS: Anisocytosis Slight; Basophils # (A) 0.1 k/uL (0-0.2); Basophils % (A) 1 %; Eosinophils # (A) 0.1 k/uL (0-0.7); Eosinophils % (A) 1 %; HGB 11.8 gm/dL (11.4-16.0); Hypochromasia Moderate; Lymphocytes # (A) 1.9 k/uL (1.0-4.8); Lymphocytes % (A) 25 %; MCH 26.9 pg (25.0-35.0); MCHC 30.2 g/dL (31.0-37.0); MCV 89.1 fL (80.0-100.0); Mean Platelet Volume 8.7; Monocytes # (A) 0.4 k/uL (0-1.0); Monocytes % (A) 5 %; Neutrophils % (A) 65 %; Platelet Count 309 k/uL (150-450); Poikilocytosis Slight; RBC 4.37 m/uL (3.80-5.40); RDW 19.4 % (11.5-15.5); WBC 7.7 k/uL (3.8-10.6)
[2024-02-27 19:15] LABS: ALT 45 U/L (4-34); AST 27 U/L (14-36); African American GFR (CKD) >90 (>60 ml/min/1.73 sqM); Albumin 3.5 g/dL (3.5-5.0); Alkaline Phosphatase 77 U/L (38-126); Amylase 52 U/L (30-110); Anion Gap 12 mmol/L; Blood Urea Nitrogen <2 mg/dL (7-17); Carbon Dioxide 19 mmol/L (22-30); Chloride 109 mmol/L (98-107); Glucose 76 mg/dL (74-99); Lipase 46 U/L (23-300); Non-African American GFR(CKD) >90 (>60 ml/min/1.73 sqM); Potassium 3.6 mmol/L (3.5-5.1); Sodium 140 mmol/L (137-145); Total Bilirubin 0.8 mg/dL (0.2-1.3); Total Protein 6.2 g/dL (6.3-8.2)
[2024-02-27 19:46] LABS: INR 1.2 (<1.2); Partial Thromboplastin Time 27.7 sec (22.0-30.0); Prothrombin Time 12.7 sec (10.0-12.5)
--- NOTE | 2024-02-27 20:03 | XR ---
EXAMINATION TYPE: XR KUB DATE OF EXAM: 02/27/2024 7:21 PM CLINICAL INDICATION:Female, 33 years old with history of abdominal pain; H COMPARISON: None. TECHNIQUE: One radiographic view of the abdomen was obtained. FINDINGS: The bowel gas pattern is nonspecific without dilated loops of small or large bowel. There i s no evidence for organomegaly or pneumoperitoneum. The osseous structures are intact. No abnormal calcifications are present. Fecal material and gas are demonstrated throughout the colon and rectum. Right upper abdominal surgical clips. IMPRESSION: Nonspecific bowel gas pattern without radiographic evidence for acute process.
[2024-02-28] MEDS: HYDROmorphone 1 MG/ML 1 ML SYRINGE IVP STA (00:22)
[2024-02-28 04:28] VITALS: TEMP 98.1
[2024-02-28] MEDS: SODIUM CHLORIDE 0.9% 1,000 ML IV STA (04:42)
[2024-02-28] MEDS: MORPHINE SULFATE 4 MG/ML SYRINGE IVP PRN (04:42)
[2024-02-28 06:41] VITALS: BP 117/75; PULSE 89
== END 2024-02-28 06:43 | disposition other institution (70) ==
LOC: EC 18:28
DX: R11.2 Nausea with vomiting, unspecified (principal); R10.13 Epigastric pain; Z98.84 Bariatric surgery status; Z91.040 Latex allergy status; Z90.49 Acquired absence of other specified parts of digestive tract
CPT/HCPCS: 99285; 96374; 96375 ×3; 96376; 96361 ×3; 36415; 80053; 82150; 83690; 85025; 85610; 85730; 74018; J2405; J1170; C9113

== ENCOUNTER → 2024-02-27 | Outpatient (CLI) | payer OTHER ==
[2024-02-27 11:02] VITALS: BP 116/83; PULSE 97; RESP 16; TEMP 96.9
--- NOTE | 2024-02-27 11:09 | P.HPBAR ---
Bariatric H&P - History & Physicial H&P Date: 02/27/24 History & Physicial: Visit/CC: f/u sleeve Patient initial contact: Initial weight: 107.955 kg Initial weight in pounds: 238.00 Height: 5 ft 2 in Initial BMI: 43.5 Last weight: Current weight: Current weight in pounds: Current BMI: [place] body weight (based on NIH guidelines): 49.895 kg Excess body weight loss: The patient is a 33 year-old F who presents for Bariatric Assessment.patient has complaints of nausea and dysphagia. She states she is not really drinking much. The patient is receiving fluid hydration today. She says she is scheduled at [facility] on March 21 for EGD with possible dilation. 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 Past Anesthesia/Blood Transfusion Reactions: No Reported Reaction Smoking Status: Never smoker - Past Family History Mother Family Medical History: Asthma, COPD, Diabetes Mellitus, Hypertension Additional Family Medical History / Comment(s): depression, anxiety, sleep apnea, Father Family Medical History: Hypertension Additional Family Medical History / Comment(s): arthritis Surgical - Exam Vital Signs Temp Pulse Resp BP 96.9 F L 97 16 116/83 02/27/24 10:49 02/27/24 10:49 02/27/24 10:49 02/27/24 10:49 - General well developed, no distress - Eyes PERRL - ENT normal pinna - Neck no masses - Respiratory normal expansion - Cardiovascular Rhythm: regular - Abdomen Abdomen: soft, non tender Bariatric Assessment & Plan Plan: dehydration related to poor oral intake. The patient will be hydrated. The patient will contact [facility] see if she can have her EGD performed sooner. Bariatric Checklist Checklist: Plan: Checklist: EGD: 1. Hiatal hernia: 2. H. Pylori: HgbA1c: Vitamin D: Smoking: Current every day smoker Primary care physician referral: Tracy Psychiatry clearance: Cardiology clearance: Sleep study: Diet journal: VTE risk score: VTE risk level: Rehab needs at discharge:
[2024-02-27 11:53] VITALS: BMI 42.8
== END ==
LOC: BARWHC3 10:00
PROVIDERS: ATTEND Surgery
DX: E86.0 Dehydration (principal); E66.01 Morbid (severe) obesity due to excess calories; F17.200 Nicotine dependence, unspecified, uncomplicated; Z91.040 Latex allergy status; Z68.41 Body mass index [BMI] 40.0-44.9, adult; Z98.84 Bariatric surgery status; Z90.3 Acquired absence of stomach [part of]
CPT/HCPCS: 94060; 94726; 94729; 97803; G0463 ×2; 99204; 99211

== ENCOUNTER 2024-03-07 20:01 | Emergency (ER) | payer OTHER ==
[2024-03-07 20:06] VITALS: RESP 18; TEMP 98
[2024-03-07] MEDS: ONDANSETRON 4 MG/2 ML VIAL IVP STA (20:45)
[2024-03-07] MEDS: HYDROmorphone 0.5 MG/0.5 ML SYRINGE IVP STA (20:48)
[2024-03-07] MEDS: SODIUM CHLORIDE 0.9% 1,000 ML IV STA (20:48)
[2024-03-07 20:53] LABS: ALT 42 U/L (4-34); AST 35 U/L (14-36); African American GFR (CKD) >90 (>60 ml/min/1.73 sqM); Albumin 3.7 g/dL (3.5-5.0); Alkaline Phosphatase 64 U/L (38-126); Amylase 56 U/L (30-110); Anion Gap 8 mmol/L; Blood Urea Nitrogen 12 mg/dL (7-17); Calcium 9.7 mg/dL (8.4-10.2); Carbon Dioxide 20 mmol/L (22-30); Chloride 110 mmol/L (98-107); Glucose 135 mg/dL (74-99); Lipase 78 U/L (23-300); Non-African American GFR(CKD) >90 (>60 ml/min/1.73 sqM); Potassium 3.7 mmol/L (3.5-5.1); Sodium 138 mmol/L (137-145); Total Bilirubin 0.5 mg/dL (0.2-1.3); Total Protein 6.6 g/dL (6.3-8.2)
--- NOTE | 2024-03-07 21:02 | ED ---
General Adult HPI - General Chief complaint: Abdominal Pain Stated complaint: abd pain, nausea Time Seen by Provider: 03/07/24 20:07 Source: patient, RN notes reviewed Mode of arrival: wheelchair Limitations: no limitations - History of Present Illness Initial comments: 33-year-old female presents to the emergency department for evaluation of epigastric abdominal discomfort. Patient reports that this started just prior to arrival. She notes associated nausea. Patient reports that she underwent a gastric sleeve in the beginning of December and has been dealing with complications since then. She was recently discharged from [facility] 2 days ago. She states that she was started on TPN at that time. She reports that she has very minimal p.o. intake. Patient also reports that she is currently being treated for PE with Lovenox. She states that she is administering this as prescribed. - Related Data Home Medications Medication Instructions Recorded Confirmed Asenapine [Saphris] 5 mg SUBLINGUAL HS 03/08/24 03/08/24 Enoxaparin [Lovenox] 105 mg SQ Q12H 03/08/24 03/08/24 Allergies Allergy/AdvReac Type Severity Reaction Status Date / Time latex Allergy Rash/Hives Verified 03/08/24 11:42 Review of Systems ROS Statement: Those systems with pertinent positive or pertinent negative responses have been documented in the HPI. ROS Other: All systems not noted in ROS Statement are negative. Past Medical History Past Medical History: GERD/Reflux, Sleep Apnea/CPAP/BIPAP Additional Past Medical History / Comment(s): iron defiency anemia, currently getting iron infusions, no cpap used, pulmonary embolism 02/13/24 History of Any Multi-Drug Resistant Organisms: None Reported Past Surgical History: Bariatric Surgery, Section, Cholecystectomy, Tubal Ligation, Uterine Ablation Additional Past Surgical History / Comment(s): 2008 AND 2015 (c/s) and 2010 (cholecyst). 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 Past Anesthesia/Blood Transfusion Reactions: No Reported Reaction Past Psychological History: Anxiety, Bipolar, Depression Smoking Status: Never smoker Past Alcohol Use History: None Reported Past Drug Use History: None Reported - Past Family History Mother Family Medical History: Asthma, COPD, Diabetes Mellitus, Hypertension Additional Family Medical History / Comment(s): depression, anxiety, sleep apnea, Father Family Medical History: Hypertension Additional Family Medical History / Comment(s): arthritis General Exam Limitations: no limitations General appearance: alert, in no apparent distress Head exam: Present: atraumatic, normocephalic, normal inspection Eye exam: Present: normal appearance, PERRL, EOMI. Absent: scleral icterus, conjunctival injection, periorbital swelling ENT exam: Present: normal exam, mucous membranes moist Neck exam: Present: normal inspection. Absent: tenderness, meningismus, lymphadenopathy Respiratory exam: Present: normal lung sounds bilaterally. Absent: respiratory distress, wheezes, rales, rhonchi, stridor Cardiovascular Exam: Present: regular rate, normal rhythm, normal heart sounds. Absent: systolic murmur, diastolic murmur, rubs, gallop, clicks GI/Abdominal exam: Present: soft, tenderness (epigastric), normal bowel sounds. Absent: distended, guarding, rebound, rigid Extremities exam: Present: normal inspection, full ROM, normal capillary refill. Absent: tenderness, pedal edema, joint swelling, calf tenderness Back exam: Present: normal inspection Neurological exam: Present: alert, oriented X3 Psychiatric exam: Present: normal affect, normal mood Skin exam: Present: warm, dry, intact, normal color. Absent: rash Course Vital Signs 03/07/24 03/07/24 03/08/24 20:02 23:06 00:37 Temperature 98 F Pulse Rate 104 H 94 97 Respiratory 18 18 18 Rate Blood Pressure 127/86 121/77 116/76 O2 Sat by Pulse 99 98 97 Oximetry Medical Decision Making - Medical Decision Making Was pt. sent in by a medical professional or institution (STEPHY Wild, ASSISTANT TO THE VICE PRESIDENT, urgent ca re, hospital, or group home...) When possible be specific @ -No Did you speak to anyone other than the patient for history (EMS, parent, family, police, friend...)? What history was obtained from this source @ -No Did you review nursing and triage notes (agree or disagree)? Why? @ -I reviewed and agree with nursing and triage notes Were old charts reviewed (outside hosp., previous admission, EMS record, old EKG, old radiological studies, urgent care reports/EKG's, group home records)? Report findings @ -No old charts were reviewed Differential Diagnosis (chest pain, altered mental status, abdominal pain women, abdominal pain men, vaginal bleeding, weakness, fever, dyspnea, syncope, headache, dizziness, GI bleed, back pain, seizure, CVA, palpatations, mental health, musculoskeletal)? @ -Differential Abdominal Pain Women: Appendicitis, Cholecystitis, diverticulosis, ischemic bowel, pancreatitis, hepatitis, UTI, gastroenteritis, AAA, incarcerated hernia, bowel obstruction, c onstipation, inflammatory bowel, hepatitis, peptic ulcer disease, splenic infarction, perforated viscus, vulvitis, ovarian torsion, PID, kidney stone, placenta abruption, this is not meant to be an all-inclusive list EKG interpreted by me (3pts min.). @ -none X-rays interpreted by me (1pt min.). @ -None done CT interpreted by me (1pt min.). @ -CT abdomen pelvis shows no acute intra-abdominal process U/S interpreted by me (1pt. min.). @ -None done What testing was considered but not performed or refused? (CT, X-rays, U/S, labs)? Why? @ -None What meds were considered but not given or refused? Why? @ -None Did you discuss the management of the patient with other professionals (professionals i.e. , PA, ASSISTANT TO THE VICE PRESIDENT, lab, RT, psych nurse, social science research assistant, professional model, teacher, special technical operations officer, pillowcase cutter)? Give summary @ -No Was smoking cessation discussed for >3mins.? @ -No Was critical care preformed (if so, how long)? @ -No Were there social determinants of health that impacted care today? How? (Homelessness, low income, unemployed, alcoholism, drug addiction, transportation, low edu. Level, literacy, decrease access to med. care, [facility], rehab)? @ -No Was there de-escalation of care discussed even if they declined (Discuss DNR or withdrawal of care, Hospice)? DNR status @ -No What co-morbidities impacted this encounter? (DM, HTN, Smoking, COPD, CAD, Cancer, CVA, ARF, Chemo, Hep., AIDS, mental health diagnosis, sleep apnea, morbid obesity)? @ -None Was patient admitted / discharged? Hospital course, mention meds given and route, prescriptions, significant lab abnormalities, going to OR and other pertinent info. @ -Discharge. Patient presented to the emergency department for evaluation of abdominal pain. Patient underwent laboratory studies.CBC shows normal WBC at 8.3, hemoglobin 11.9; CMP shows potassium 3.7, sodium 138, creatinine 0.46; no lactic acidosis with a lactic of 1.2, lipase 78; no evidence of urinary tract infection. Negative urine hCG. Patient underwent CT abdomen pelvis which showed no acute intra-abdominal process. Patient was provided normal saline, Zofran, Dilaudid for pain control. Symptoms improved following this. She was advised on findings and will be discharged home. She is understanding and agreeable with this plan. Patient stable at time of discharge. Case discussed with Dr. Arredondo. Undiagnosed new problem with uncertain prognosis? @ -No Drug Therapy requiring intensive monitoring for toxicity (Heparin, Nitro, Insulin, Cardizem)? @ -No Were any procedures done? @ -No Diagnosis/symptom? @ -Abdominal pain Acute, or Chronic, or Acute on Chronic? @ -Acute Uncomplicated (without systemic symptoms) or Complicated (systemic symptoms)? @ -Uncomplicated Side effects of treatment? @ -No Exacerbation, Progression, or Severe Exacerbation? @ -No Poses a threat to life or bodily function? How? (Chest pain, USA, [place], pneumonia, PE, COPD, DKA, ARF, appy, cholecystitis, CVA, Diverticulitis, Homicidal, Suicidal, threat to staff... and all critical care pts) @ -No - Lab Data Result diagrams: 03/07/24 20:28 03/07/24 20:28 Lab Results 03/07/24 03/07/24 03/07/24 Range/Units 20:28 20:28 20:28 WBC 8.3 (3.8-10.6) k/uL RBC 4.43 (3.80-5.40) m/uL Hgb 11.9 (11.4-16.0) gm/dL Hct 39.8 (34.0-46.0) % MCV 89.9 (80.0-100.0) fL MCH 27.0 (25.0-35.0) pg MCHC 30.0 L (31.0-37.0) g/dL RDW 19.1 H (11.5-15.5) % Plt Count 213 (150-450) k/uL MPV 11.6 Neutrophils % 64 % Lymphocytes % 28 % Monocytes % 5 % Eosinophils % 1 % Basophils % 0 % Neutrophils # 5.3 (1.3-7.7) k/uL Lymphocytes # 2.3 (1.0-4.8) k/uL Monocytes # 0.4 (0-1.0) k/uL Eosinophils # 0.1 (0-0.7) k/uL Basophils # 0.0 (0-0.2) k/uL Hypochromasia Moderate Anisocytosis Slight Sodium 138 (137-145) mmol/L Potassium 3.7 (3.5-5.1) mmol/L Chloride 110 H (98-107) mmol/L Carbon Dioxide 20 L (22-30) mmol/L Anion Gap 8 mmol/L BUN 12 (7-17) mg/dL Creatinine 0.46 L (0.52-1.04) mg/dL Est GFR (CKD-EPI)AfAm >90 (>60 ml/min/1.73 sqM) Est GFR (CKD-EPI)NonAf >90 (>60 ml/min/1.73 sqM) Glucose 135 H (74-99) mg/dL Plasma Lactic Acid Case (0.7-2.0) mmol/L Calcium 9.7 (8.4-10.2) mg/dL Magnesium 2.1 (1.6-2.3) mg/dL Total Bilirubin 0.5 (0.2-1.3) mg/dL AST 35 (14-36) U/L ALT 42 H (4-34) U/L Alkaline Phosphatase 64 (38-126) U/L Total Protein 6.6 (6.3-8.2) g/dL Albumin 3.7 (3.5-5.0) g/dL Amylase 56 (30-110) U/L Lipase 78 (23-300) U/L Urine Color Urine Appearance (Clear) Urine pH (5.0-8.0) Ur Specific [place] (1.001-1.035) Urine Protein (Negative) Urine Glucose (UA) (Negative) Urine Ketones (Negative) Urine Blood (Negative) Urine Nitrite (Negative) Urine Bilirubin (Negative) Urine Urobilinogen (<2.0) mg/dL Ur Leukocyte Esterase (Negative) Urine RBC (0-5) /hpf Urine WBC (0-5) /hpf Ur Squamous Epith Cells (0-4) /hpf Urine Bacteria (None) /hpf Hyaline Casts (0-2) /lpf Urine Mucus (None) /hpf Urine HCG, Qual (Not Detectd) 03/07/24 03/07/24 03/07/24 Range/Units 20:52 23:05 23:05 WBC (3.8-10.6) k/uL RBC (3.80-5.40) m/uL Hgb (11.4-16.0) gm/dL Hct (34.0-46.0) % MCV (80.0-100.0) fL MCH (25.0-35.0) pg MCHC (31.0-37.0) g/dL RDW (11.5-15.5) % Plt Count (150-450) k/uL MPV Neutrophils % % Lymphocytes % % Monocytes % % Eosinophils % % Basophils % % Neutrophils # (1.3-7.7) k/uL Lymphocytes # (1.0-4.8) k/uL Monocytes # (0-1.0) k/uL Eosinophils # (0-0.7) k/uL Basophils # (0-0.2) k/uL Hypochromasia Anisocytosis Sodium (137-145) mmol/L Potassium (3.5-5.1) mmol/L Chloride (98-107) mmol/L Carbon Dioxide (22-30) mmol/L Anion Gap mmol/L BUN (7-17) mg/dL Creatinine (0.52-1.04) mg/dL Est GFR (CKD-EPI)AfAm (>60 ml/min/1.73 sqM) Est GFR (CKD-EPI)NonAf (>60 ml/min/1.73 sqM) Glucose (74-99) mg/dL Plasma Lactic Acid Case 1.2 (0.7-2.0) mmol/L Calcium (8.4-10.2) mg/dL Magnesium (1.6-2.3) mg/dL Total Bilirubin (0.2-1.3) mg/dL AST (14-36) U/L ALT (4-34) U/L Alkaline Phosphatase (38-126) U/L Total Protein (6.3-8.2) g/dL Albumin (3.5-5.0) g/dL Amylase (30-110) U/L Lipase (23-300) U/L Urine Color Yellow Urine Appearance Cloudy H (Clear) Urine pH 5.5 (5.0-8.0) Ur Specific [place] 1.026 (1.001-1.035) Urine Protein Trace H (Negative) Urine Glucose (UA) Negative (Negative) Urine Ketones Negative (Negative) Urine Blood Small H (Negative) Urine Nitrite Negative (Negative) Urine Bilirubin Negative (Negative) Urine Urobilinogen <2.0 (<2.0) mg/dL Ur Leukocyte Esterase Negative (Negative) Urine RBC 2 (0-5) /hpf Urine WBC 4 (0-5) /hpf Ur Squamous Epith Cells 4 (0-4) /hpf Urine Bacteria Rare H (None) /hpf Hyaline Casts 9 H (0-2) /lpf Urine Mucus Many H (None) /hpf Urine HCG, Qual Not Detected (Not Detectd) Disposition Clinical Impression: Abdominal pain, Nausea Disposition: HOME SELF-CARE Condition: Stable Instructions (If sedation given, give patient instructions): Abdominal Pain (ED) Additional Instructions: Please follow up with your PCP and surgeon. Return to the emergency department for new or worsening symptoms. Is patient prescribed a controlled substance at d/c from ED?: No Referrals: Justin Molina MD [Primary Care Provider] - 1-2 days
[2024-03-07 21:24] LABS: Anisocytosis Slight; Basophils % (A) 0 %; Eosinophils # (A) 0.1 k/uL (0-0.7); Eosinophils % (A) 1 %; HCT 39.8 % (34.0-46.0); HGB 11.9 gm/dL (11.4-16.0); Hypochromasia Moderate; Lymphocytes # (A) 2.3 k/uL (1.0-4.8); Lymphocytes % (A) 28 %; MCV 89.9 fL (80.0-100.0); Mean Platelet Volume 11.6; Monocytes # (A) 0.4 k/uL (0-1.0); Monocytes % (A) 5 %; Neutrophils # (A) 5.3 k/uL (1.3-7.7); Neutrophils % (A) 64 %; Platelet Count 213 k/uL (150-450); RBC 4.43 m/uL (3.80-5.40); RDW 19.1 % (11.5-15.5); WBC 8.3 k/uL (3.8-10.6)
[2024-03-07] MEDS: HYDROmorphone 1 MG/ML 1 ML SYRINGE IVP STA (23:09)
--- NOTE | 2024-03-07 23:33 | CT ---
EXAMINATION TYPE: CT abdomen pelvis w con DATE OF EXAM: 03/07/2024 HISTORY: Abdominal pain, history of gastric bypass CT DLP: 1500mGycm Automated Exposure Control for Dose Reduction was Utilized. CONTRAST: CT scan of the abdomen and pelvis is performed with limited oral and with IV Contrast, patient inject ed with 100 mL of Isovue 300. COMPARISON: Most recent prior CT February 13, 2024 FINDINGS: LUNG BASES: No significant abnormality is appreciated. LIVER/GB: Cholecystectomy clips are redemonstrated. PANCREAS: No significant abnormality is seen. SPLEEN: No significant abnormality is seen. ADRENALS: No significant abnormality is seen. KIDNEYS: No significant abnormality is seen. BOWEL: Appendix within normal limits for base of cecum coronal image 47. Surgical changes from gastri c sleeve procedure is present. No abnormal small or large bowel dilatation. Oral contrast in the visu alized distal esophagus and gastric sleeve without contrast extravasation. UTERUS/ADNEXA: Anteverted uterus. Symmetric normal-sized ovaries. LYMPH NODES: No greater than 1cm abdominal or pelvic lymph nodes are appreciated. OSSEOUS STRUCTURES: No significant abnormality is seen. OTHER: No significant additional abnormality is seen. IMPRESSION: No significant acute finding is seen to account for patient's clinical symptoms.
[2024-03-07 23:46] LABS: Appearance,Urine Cloudy (Clear); Bacteria,Urine Rare /hpf; Bilirubin,Urine Negative (Negative); Blood,Urine Small (Negative); Color,Urine Yellow; Glucose,Urine (UA) Negative (Negative); Hyaline Casts,Urine 9 /lpf (0-2); Ketones,Urine Negative (Negative); Leukocyte Esterase,Urine Negative (Negative); Mucus,Urine Many /hpf; Nitrite,Urine Negative (Negative); PH, Urine 5.5 (5.0-8.0); Protein,Urine Trace (Negative); RBC,Urine 2 /hpf (0-5); Specific Gravity,Urine 1.026 (1.001-1.035); Squamous Epithelial Cell,Urine 4 /hpf (0-4); Urobilinogen,Urine <2.0 mg/dL (<2.0); WBC,Urine 4 /hpf (0-5)
[2024-03-08 00:38] VITALS: BP 116/76; PULSE 97
== END 2024-03-08 00:50 | disposition home or self-care (01) ==
LOC: EC 20:01
DX: R10.13 Epigastric pain (principal); R11.0 Nausea; Z91.040 Latex allergy status; Z90.49 Acquired absence of other specified parts of digestive tract
CPT/HCPCS: 36415; 80053; 82150; 83605; 83690; 83735; 85025; 81001; 81025; 74177; 99284; 96374; 96375; 96376; 96361; J2405; J1170 ×2; Q9967

== ENCOUNTER 2024-03-08 07:31 | Inpatient (IN) | payer OTHER ==
--- NOTE | 2024-03-08 08:01 | ED ---
General Adult HPI - General Chief complaint: Abdominal Pain Stated complaint: abd pain Time Seen by Provider: 03/08/24 07:32 Source: patient Mode of arrival: ambulatory Limitations: no limitations - History of Present Illness Initial comments: Dictation was produced using [employer] dictation software. please excuse any grammatical, word or spelling errors. Chief Complaint: 33-year-old female presents to the emergency department with abdominal pain and nausea History of Present Illness: Patient 33-year-old female in April patient had a bariatric surgery. Since then patient has been having significant issues. She has had multiple admissions with complications. She most recently was transferred to [facility] where she was evaluated by surgical subspecialist. She was told that there is concern of a possible twist in her bariatric surgery that will need revision however surgery is delayed because patient takes anticoagulation medications. She was initiated on TPN recently. Denies any fever, chills or night sweats. The ROS documented in this emergency department record has been reviewed and confirmed by me. Those systems with pertinent positive or negative responses have been documented in the HPI. All other systems are other negative and/or noncontributory. - Related Data Home Medications Medication Instructions Recorded Confirmed Asenapine [Saphris] 5 mg SUBLINGUAL HS 03/08/24 03/08/24 Enoxaparin [Lovenox] 105 mg SQ Q12H 03/08/24 03/08/24 Allergies Allergy/AdvReac Type Severity Reaction Status Date / Time latex Allergy Rash/Hives Verified 03/08/24 11:42 Review of Systems ROS Statement: Those systems with pertinent positive or pertinent negative responses have been documented in the HPI. ROS Other: All systems not noted in ROS Statement are negative. Past Medical History Past Medical History: GERD/Reflux, Sleep Apnea/CPAP/BIPAP Additional Past Medical History / Comment(s): iron defiency anemia, currently getting iron infusions, no cpap used, pulmonary embolism 02/13/24 History of Any Multi-Drug Resistant Organisms: None Reported Past Surgical History: Bariatric Surgery, Section, Cholecystectomy, Tubal Ligation, Uterine Ablation Additional Past Surgical History / Comment(s): 2008 AND 2015 (c/s) and 2010 ( cholecyst). 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 Past Anesthesia/Blood Transfusion Reactions: No Reported Reaction Past Psychological History: Anxiety, Bipolar, Depression Smoking Status: Never smoker Past Alcohol Use History: None Reported Past Drug Use History: None Reported - Past Family History Mother Family Medical History: Asthma, COPD, Diabetes Mellitus, Hypertension Additional Family Medical History / Comment(s): depression, anxiety, sleep apnea, Father Family Medical History: Hypertension Additional Family Medical History / Comment(s): arthritis General Exam - General Exam Comments Initial Comments: PHYSICAL EXAM: General Impression: Alert and oriented x3, distress from nausea HEENT: Normocephalic atraumatic, extra-ocular movements intact, pupils equal and reactive to light bilaterally, mucous membranes moist. Cardiovascular: Heart regular rate and rhythm Chest: Able to complete full sentences, no retractions, no tachypnea Abdomen: abdomen soft, diffuse palpatory tenderness, non-distended, no organomegaly Musculoskeletal: Pulses present and equal in all extremities, no peripheral edema Motor: no focal deficits noted Neurological: CN II-XII grossly intact, no focal motor or sensory deficits noted Skin: Intact with no visualized rashes Psych: Normal affect and mood Limitations: no limitations Course Vital Signs 03/08/24 03/08/24 03/08/24 07:40 08:24 10:23 Temperature 98 F Pulse Rate 108 H 102 H 101 H Respiratory 18 18 18 Rate Blood Pressure 126/89 112/72 107/57 O2 Sat by Pulse 98 100 100 Oximetry - Reevaluation(s) Reevaluation #1: 03/08/24 09:[address] Liu at 9:50 AM. He is very familiar with patient given patient's complex history he recommends transferring patient down to [facility]. EKG Findings - EKG Comments: EKG Findings:: My EKG interpretation: Ventricular rate 100, sinus tachycardia, [place] interval 184, cures 90, QTc 418. No [place] prolongation, no QTC prolongation, no ST or T-wave changes noted. EKG compared to December 22, 2023 showing no changes. Overall, this EKG is unremarkable Medical Decision Making - Medical Decision Making Was pt. sent in by a medical professional or institution (, PA, ORTHOTIC PRACTITIONER, urgent care, hospital, or skilled nursing...) When possible be specific @ -No Did you speak to anyone other than the patient for history (EMS, parent, family, police, friend...)? What history was obtained from this source @ -No Did you review nursing and triage notes (agree or disagree)? Why? @ -I reviewed and agree with nursing and triage notes Were old charts reviewed (outside hosp., previous admission, EMS record, old EKG, old radiological studies, urgent care reports/EKG's, skilled nursing records)? Report findings @ -No old charts were reviewed Differential Diagnosis (chest pain, altered mental status, abdominal pain women, abdominal pain men, vaginal bleeding, musculoskeletal, weakness, fever, dy spnea, syncope, headache, dizziness, GI bleed, back pain, seizure, CVA, palpatations, mental health)? @ -Differential Abdominal Pain Women: Appendicitis, Cholecystitis, diverticulosis, ischemic bowel, pancreatitis, hepatitis, UTI, gastroenteritis, AAA, incarcerated hernia, bowel obstruction, constipation, inflammatory bowel, hepatitis, peptic ulcer disease, splenic infarction, perforated viscus, vulvitis, ovarian torsion, PID, kidney stone, placenta abruption, this is not meant to be an all-inclusive list EKG interpreted by me (3pts min.). @ -None done X-rays interpreted by me (1pt min.). @ -None done CT interpreted by me (1pt min.). @ -None done U/S interpreted by me (1pt. min.). @ -None done What testing was considered but not performed or refused? (CT, X-rays, U/S, labs)? Why? @ -None What meds were considered but not given or refused? Why? @ -None Was smoking cessation discussed for >3mins.? @ -No Were there social determinants of health that impacted care today? How? (Ho melessness, low income, unemployed, alcoholism, drug addiction, transportation, low edu. Level, literacy, decrease access to med. care, care home, rehab)? @ -No Was there de-escalation of care discussed even if they declined (Discuss DNR or withdrawal of care, Hospice)? DNR status @ -No What co-morbidities impacted this encounter? (DM, HTN, Smoking, COPD, CAD, Cancer, CVA, ARF, Chemo, Hep., AIDS, mental health diagnosis, sleep apnea, morbid obesity)? @ -None Was patient admitted / discharged? Hospital course, mention meds given and route, prescriptions, significant lab abnormalities, going to OR and other pertinent info. @ -33-year-old female presents to the emergency department with symptoms of intractable abdominal pain, nausea and vomiting after several months of what she describes as complicated bariatric surgery. Vital signs are stable. Patient in distress secondary to pain. Case discussed with general surgeon initially and attempts were made to transfer to [facility] per request by general surgeon. Therefore [facility] refused [facility]. Patient will be admitted here under the care of Dr. Liu. Did you discuss the management of the patient with other professionals (professionals i.e. , PA, ORTHOTIC PRACTITIONER, lab, RT, psych nurse, executive secretary social welfare, olive knocker, teacher, chief investment officer, window caser)? Give summary @ - Case is reviewed with [facility] transfer team. They spoke with their transfer docs and declined the transfer. Case was rediscussed with Dr. Jarocho cedeño. States that he evaluated patient at the bedside and will accept patient's care for hospital admission. Was critical care preformed (if so, how long)? @ -No Undiagnosed new problem with uncertain prognosis? @ -No Drug Therapy requiring intensive monitoring for toxicity (Heparin, Nitro, Insulin, Cardizem)? @ -No Were any procedures done? @ -No Diagnosis/symptom? Acute, or Chronic, or Acute on Chronic? Uncomplicated (without systemic symptoms) or Complicated (systemic symptoms)? @ -Intractable abdominal pain, tractable nausea and vomiting Side effects of treatment? @ -No Exacerbation, Progression, or Severe Exacerbation? @ -No Poses a threat to life or bodily function? How? (Chest pain, [place], [place], pneumonia, PE, COPD, DKA, ARF, appy, cholecystitis, CVA, Diverticulitis, Homicidal, Suicidal, threat to staff... and all critical care pts) @ -yes - Lab Data Result diagrams: 03/08/24 08:36 03/08/24 08:36 Lab Results 03/08/24 03/08/24 Range/Units 08:36 08:36 WBC 7.2 (3.8-10.6) k/uL RBC 4.16 (3.80-5.40) m/uL Hgb 11.3 L (11.4-16.0) gm/dL Hct 38.0 (34.0-46.0) % MCV 91.5 (80.0-100.0) fL MCH 27.3 (25.0-35.0) pg MCHC 29.8 L (31.0-37.0) g/dL RDW 18.8 H (11.5-15.5) % Plt Count 219 (150-450) k/uL MPV 9.9 Neutrophils % 68 % Lymphocytes % 21 % Monocytes % 7 % Eosinophils % 2 % Basophils % 1 % Neutrophils # 4.9 (1.3-7.7) k/uL Lymphocytes # 1.5 (1.0-4.8) k/uL Monocytes # 0.5 (0-1.0) k/uL Eosinophils # 0.1 (0-0.7) k/uL Basophils # 0.0 (0-0.2) k/uL Hypochromasia Marked Anisocytosis Slight Sodium 138 (137-145) mmol/L Potassium 4.2 (3.5-5.1) mmol/L Chloride 113 H (98-107) mmol/L Carbon Dioxide 21 L (22-30) mmol/L Anion Gap 4 mmol/L BUN 12 (7-17) mg/dL Creatinine 0.42 L (0.52-1.04) mg/dL Est GFR (CKD-EPI)AfAm >90 (>60 ml/min/1.73 sqM) Est GFR (CKD-EPI)NonAf >90 (>60 ml/min/1.73 sqM) Glucose 116 H (74-99) mg/dL Calcium 9.0 (8.4-10.2) mg/dL Magnesium 2.1 (1.6-2.3) mg/dL Disposition Clinical Impression: Intractable abdominal pain Disposition: ADMITTED IP TO THIS HOSP Condition: Fair Referrals: Justin Molina MD [Primary Care Provider] - 1-2 days Decision Time: 12:28
[2024-03-08] MEDS: SODIUM CHLORIDE 0.9% 1,000 ML IV STA (08:37)
[2024-03-08] MEDS: MORPHINE SULFATE 4 MG/ML SYRINGE IV STA (08:38)
[2024-03-08] MEDS: ONDANSETRON 4 MG/2 ML VIAL IVP STA (08:38)
[2024-03-08 08:49] LABS: Anisocytosis Slight; Basophils % (A) 1 %; Eosinophils # (A) 0.1 k/uL (0-0.7); Eosinophils % (A) 2 %; HGB 11.3 gm/dL (11.4-16.0); Hypochromasia Marked; Lymphocytes # (A) 1.5 k/uL (1.0-4.8); Lymphocytes % (A) 21 %; MCH 27.3 pg (25.0-35.0); MCHC 29.8 g/dL (31.0-37.0); MCV 91.5 fL (80.0-100.0); Mean Platelet Volume 9.9; Monocytes # (A) 0.5 k/uL (0-1.0); Monocytes % (A) 7 %; Neutrophils # (A) 4.9 k/uL (1.3-7.7); Neutrophils % (A) 68 %; Platelet Count 219 k/uL (150-450); RBC 4.16 m/uL (3.80-5.40); RDW 18.8 % (11.5-15.5); WBC 7.2 k/uL (3.8-10.6)
[2024-03-08 09:43] LABS: African American GFR (CKD) >90 (>60 ml/min/1.73 sqM); Anion Gap 4 mmol/L; Blood Urea Nitrogen 12 mg/dL (7-17); Carbon Dioxide 21 mmol/L (22-30); Chloride 113 mmol/L (98-107); Glucose 116 mg/dL (74-99); Magnesium 2.1 mg/dL (1.6-2.3); Non-African American GFR(CKD) >90 (>60 ml/min/1.73 sqM); Potassium 4.2 mmol/L (3.5-5.1); Sodium 138 mmol/L (137-145)
[2024-03-08] MEDS: HYDROmorphone 1 MG/ML 1 ML SYRINGE IVP STA (10:45)
[2024-03-08] MEDS ORDERED: NALOXONE 0.4 MG/ML 1 ML VIAL IV PRN (12:25)
[2024-03-08] MEDS: SODIUM CHLORIDE 0.9% 1,000 ML IV SCH (13:26)
[2024-03-08] MEDS ORDERED: IOPAMIDOL CONTRAST (ORAL USE) VIAL PO PRN (13:28)
[2024-03-08] MEDS: ENOXAPARIN 120 MG/0.8 ML SYRINGE SQ SCH ×2 (14:26→18:27)
[2024-03-08] MEDS: HYDROmorphone 1 MG/ML 1 ML SYRINGE IVP PRN (14:27)
[2024-03-08 15:22] VITALS: BMI 42.5
[2024-03-08] MEDS: ONDANSETRON 4 MG/2 ML VIAL IVP PRN (18:48)
[2024-03-08] MEDS: IPRATROPIUM-ALBUTEROL 3 ML NEB INHALATION SCH (19:48)
[2024-03-08 20:58] LABS: Glucose,Whole Blood 81 mg/dL (70-110)
[2024-03-08] MEDS: PANTOPRAZOLE 40 MG/10 ML VIAL IVP SCH (22:43)
[2024-03-08] MEDS: [UNRECOGNIZED DRUG - REMARK] IV ONE (22:46)
--- NOTE | 2024-03-09 01:28 | CONS ---
CONSULTATION HISTORY OF PRESENT ILLNESS: This is a 33-year-old -[place] female with recent pulmonary embolism after Damon surgery. She is back to the hospital due to nausea and vomiting, possibly due to too much tightening after the Damon procedure. She will try to have Dr. Liu fix this. Continue with her breathing treatments. We reordered her blood thinner. She is taking Lovenox. PHYSICAL EXAMINATION: VITAL SIGNS: Stable, afebrile. CARDIOVASCULAR: S1, S2. LUNGS: Transmitted upper sounds. GI: Soft. HEMATOLOGY: Negative for Homans. PSYCH: Fair mood and affect. Possibly add scopolamine patch. Continue with Zofran PT, OT. Possible surgical intervention by Dr. Liu, will have to wait to see treatment of Lovenox for recent pulmonary embolism. Prognosis guarded. Please see further orders. Consults done. CHADD / MARLENAN: [phone] /
--- NOTE | 2024-03-09 02:46 | HP ---
HISTORY AND PHYSICAL CHIEF COMPLAINT: Abdominal pain. HISTORY OF PRESENT ILLNESS: This is a 33-year-old female with history of sleeve gastrectomy on 12/20/2023. The patient presents to the hospital with increasing right upper quadrant abdominal pain with nausea and vomiting. The patient reports that the feeling feels like there is spasming. She is having flatus. Patient has a history of a cholecystectomy. She is currently on TPN for nutrition support. She had a CT scan done yesterday while she was in the ER with oral and IV contrast. Results show no evidence of leak. Reports no significant acute findings is seen to account for patient's clinical symptoms. Results reviewed with Dr. Liu. The patient denies any fever, chills, or sweats. She is followed at [facility]. She has known pulmonary embolism and on Lovenox. PAST MEDICAL HISTORY: PE, GERD, sleep apnea, iron deficiency anemia. PAST SURGICAL HISTORY: Sleeve gastrectomy, cholecystectomy, and tubal ligation. PHYSICAL EXAMINATION: ABDOMEN: Soft, nontender, nondistended. VITAL SIGNS: Patient mildly tachycardic. LABORATORY RESULTS: WBC 7.2, Hgb 11.3, platelets 219. Sodium 138, creatinine 0.42, magnesium 2.1. CT scan as stated above. ASSESSMENT: 1. Right upper quadrant abdominal pain with nausea and vomiting. 2. History of sleeve gastrectomy. 3. Protein calorie malnutrition, on TPN at home. 4. Pulmonary embolism. PLAN: Continue supportive care with IV fluids and antiemetics. No need to repeat CT scan at this time. Continue pain management. Resume patient's Lovenox for her PE. Patient can have a clear liquid diet as tolerated. MMODL / IJN: [id number] /
[2024-03-09 07:53] LABS: Ionized Calcium 5.3 mg/dL (4.5-5.3)
[2024-03-09 08:00] LABS: African American GFR (CKD) >90 (>60 ml/min/1.73 sqM); Albumin 2.7 g/dL (3.5-5.0); Anion Gap 1 mmol/L; Blood Urea Nitrogen 5 mg/dL (7-17); Calcium 9.3 mg/dL (8.4-10.2); Carbon Dioxide 25 mmol/L (22-30); Chloride 111 mmol/L (98-107); Glucose 124 mg/dL (74-99); Magnesium 1.8 mg/dL (1.6-2.3); Non-African American GFR(CKD) >90 (>60 ml/min/1.73 sqM); Phosphorus 4.2 mg/dL (2.5-4.5); Potassium 4.2 mmol/L (3.5-5.1); Sodium 137 mmol/L (137-145)
[2024-03-09 11:42] LABS: Glucose,Whole Blood 104 mg/dL (70-110)
--- NOTE | 2024-03-09 14:51 | P.PN ---
Subjective Progress Note Date: 03/09/24 Principal diagnosis: nausea nausea, dehydration the patient states her nausea has improved slightly. She is currently on TPN. She still has some complaints of abdominal pain. Her computed tomography scan performed with oral contrast 2 days ago shows no evidence of leak or any significant intra-abdominal pathology. Patient will K receive TPN over the weekend. She is had limited oral intake. We will repeat reevaluate first on Tuesday. She'll remain on just sips of clear liquids. Objective - Vital Signs Vital signs: Vital Signs Temp 98.7 F 03/09/24 07:41 Pulse 104 H 03/09/24 07:41 Resp 18 03/09/24 07:41 BP 109/75 03/09/24 07:41 Pulse Ox 96 03/09/24 07:41 FiO2 Intake & Output 03/08/24 03/09/24 03/09/24 18:59 06:59 18:59 Weight 105.46 kg 105.46 kg 105.46 kg Other: # Voids 1 - Labs CBC & Chem 7: 03/08/24 08:36 03/09/24 07:24 Labs: Abnormal Lab Results - Last 24 Hours (Table) 03/09/24 Range/Units 07:24 Chloride 111 H (98-107) mmol/L BUN 5 L (7-17) mg/dL Creatinine 0.45 L (0.52-1.04) mg/dL Glucose 124 H (74-99) mg/dL Albumin 2.7 L (3.5-5.0) g/dL
[2024-03-09] MEDS: FAT EMULSION 20% 250 ML in EMPTY BAG 1 BAG IV SCH (14:59)
[2024-03-09 16:57] LABS: Glucose,Whole Blood 102 mg/dL (70-110)
[2024-03-09] MEDS: ALPRAZolam 0.25 MG TAB PO PRN (21:08)
[2024-03-09 21:44] LABS: Glucose,Whole Blood 94 mg/dL (70-110)
[2024-03-09] MEDS ORDERED: 1: MVI, ADULT NO.4 WITH VIT K 10 ML, TRACE (CONC-1ML/DOSE) 1 ML, SODIUM PHOSPHATE 9 MMOL IV SCH (22:40)
[2024-03-10] MEDS: diphenhydrAMINE 50 MG/ML 1 ML VIAL IVP PRN (01:34)
[2024-03-10] MEDS: 1: MVI, ADULT NO.4 WITH VIT K 10 ML, TRACE (CONC-1ML/DOSE) 1 ML, SODIUM PHOSPHATE 9 MMOL IV SCH (01:35)
[2024-03-10 05:50] LABS: Glucose,Whole Blood 118 mg/dL (70-110)
[2024-03-10 06:41] LABS: African American GFR (CKD) >90 (>60 ml/min/1.73 sqM); Anion Gap 4 mmol/L; Blood Urea Nitrogen 4 mg/dL (7-17); Calcium 9.2 mg/dL (8.4-10.2); Carbon Dioxide 25 mmol/L (22-30); Chloride 109 mmol/L (98-107); Glucose 132 mg/dL (74-99); Magnesium 1.7 mg/dL (1.6-2.3); Non-African American GFR(CKD) >90 (>60 ml/min/1.73 sqM); Phosphorus 4.3 mg/dL (2.5-4.5); Potassium 3.4 mmol/L (3.5-5.1); Sodium 138 mmol/L (137-145)
[2024-03-10] MEDS: POTASSIUM CHLORIDE 20 MEQ in WATER FOR INJECTION 1 100ML.BAG IVPB SCH (10:28)
[2024-03-10] MEDS: MAGNESIUM SULFATE-D5W PMX 1 GM in DEXTROSE/WATER 1 100ML.BAG IVPB ONE (10:28)
[2024-03-10 11:39] LABS: Glucose,Whole Blood 124 mg/dL (70-110)
[2024-03-10] MEDS: HYDROcodone/APAP 15 ML SOLUTION PO PRN (15:31)
[2024-03-10 16:29] LABS: Glucose,Whole Blood 108 mg/dL (70-110)
[2024-03-10 20:29] LABS: Glucose,Whole Blood 103 mg/dL (70-110)
--- NOTE | 2024-03-10 22:01 | P.PN ---
Subjective Patient seen and evalauted at bedside. Patient complaining of abdominal pain and nausea. gen: nad cv: rrr pul: non labored breathing abd: soft, non distended, tender to palpation, no guarding or rebound tenderness Objective - Vital Signs Vital signs: Vital Signs Temp 98.2 F 03/10/24 19:21 Pulse 87 03/10/24 19:21 Resp 18 03/10/24 19:21 BP 110/71 03/10/24 19:21 Pulse Ox 100 03/10/24 19:21 FiO2 Intake & Output 03/10/24 03/10/24 03/11/24 06:59 18:59 06:59 Intake Total 1390 Balance 1390 Intake: Intake, IV Titration 1390 Amount Fat Emulsion 20% 250 ml 250 In Empty Bag 1 bag @ 21 mls/hr IV TuFr [facility] Rx#: [id number] Sodium Chloride 0.9% 1, 300 000 ml @ 75 mls/hr IV . [id number] [facility] Rx#:[id number] Sodium Phosphate 9 mmol 840 Sodium Acetate 30 meq Potassium Acetate 20 meq Magnesium Sulfate gm 0.5 gm Calcium Gluconate 1 gm In Amino Acids 5 %/ Dextrose 20 % 1,000 ml @ 70 mls/hr IV .BY DURATION [facility] Rx#:[id number] Other: Voiding Method Toilet # Voids 3 - Labs CBC & Chem 7: 03/08/24 08:36 03/10/24 06:12 Labs: Abnormal Lab Results - Last 24 Hours (Table) 03/10/24 03/10/24 03/10/24 Range/Units 05:48 06:12 11:38 Potassium 3.4 L (3.5-5.1) mmol/L Chloride 109 H (98-107) mmol/L BUN 4 L (7-17) mg/dL Creatinine 0.48 L (0.52-1.04) mg/dL Glucose 132 H (74-99) mg/dL POC Glucose (mg/dL) 118 H 124 H (70-110) mg/dL Assessment and Plan Assessment: 33 yo female s/p sleeve -attempt hycet for pain relief -continue current diet -serial abdominal exams Time with Patient: Greater than 30
--- NOTE | 2024-03-10 22:07 | PN ---
PROGRESS NOTE DATE OF SERVICE: 03/09/2024 SUBJECTIVE: Still has nausea, no vomiting. She is getting TPN and IV nausea medicine. Hopefully, the swelling from her recent Damon will go down. Otherwise, corrective action will be needed on Tuesday. She continues to have nausea, does not think she is getting better, but she is getting more nutrition. She is being treated for PE recently, she remains on blood thinners, Lovenox shots. She continues on her upper respiratory breathing. Prognosis guarded. Continue current treatment. Possibly esophageal dilation or Barium swallow to be done on Tuesday. Please see further orders. MMODL / IJN: [id number] /
[2024-03-11 04:26] LABS: African American GFR (CKD) >90 (>60 ml/min/1.73 sqM); Anion Gap 5 mmol/L; Blood Urea Nitrogen 10 mg/dL (7-17); Calcium 8.9 mg/dL (8.4-10.2); Carbon Dioxide 24 mmol/L (22-30); Chloride 109 mmol/L (98-107); Glucose 116 mg/dL (74-99); Magnesium 1.8 mg/dL (1.6-2.3); Non-African American GFR(CKD) >90 (>60 ml/min/1.73 sqM); Phosphorus 4.2 mg/dL (2.5-4.5); Potassium 3.8 mmol/L (3.5-5.1); Sodium 138 mmol/L (137-145)
[2024-03-11 06:14] LABS: Glucose,Whole Blood 123 mg/dL (70-110)
[2024-03-11 11:33] LABS: Glucose,Whole Blood 100 mg/dL (70-110)
--- NOTE | 2024-03-11 14:09 | P.PN ---
Subjective Progress Note Date: 03/11/24 Principal diagnosis: Abdominal pain Patient says her pain is about the same. She is having episodes of nausea and vomiting and not tolerating liquids well. She is afebrile. Objective - Vital Signs Vital signs: Vital Signs Temp 98.3 F 03/11/24 13:11 Pulse 88 03/11/24 13:11 Resp 14 03/11/24 13:11 BP 103/69 03/11/24 13:11 Pulse Ox 100 03/11/24 13:11 FiO2 Intake & Output 03/10/24 03/11/24 03/11/24 18:59 06:59 18:59 Intake Total 1050 1740 Balance 1050 1740 Intake: Intake, IV Titration 1050 1740 Amount Mvi, Adult No.4 with Vit 1050 840 K 10 ml Trace (Conc-1Ml/ Dose) 1 ml Sodium Phosphate 9 mmol Sodium Acetate 30 meq Potassium Acetate 20 meq Magnesium Sulfate gm 0.5 gm Calcium Gluconate 1 gm In Amino Acids 5 %/Dextrose 20 % 1 ,000 ml @ 70 mls/hr IV . BY DURATION [facility] Rx#: [id number] Sodium Chloride 0.9% 1, 900 000 ml @ 75 mls/hr IV . [id number] [facility] Rx#:[id number] Other: Voiding Method Toilet Toilet Toilet # Voids 3 - Exam Abdomen: Soft, nontender, nondistended - Labs CBC & Chem 7: 03/08/24 08:36 03/11/24 03:35 Labs: Abnormal Lab Results - Last 24 Hours (Table) 03/11/24 03/11/24 Range/Units 03:35 06:13 Chloride 109 H (98-107) mmol/L Creatinine 0.43 L (0.52-1.04) mg/dL Glucose 116 H (74-99) mg/dL POC Glucose (mg/dL) 123 H (70-110) mg/dL Assessment and Plan (1) Intractable abdominal pain Narrative/Plan: 33-year-old female with nausea vomiting and dysphagia after recent sleeve gastrectomy. May require repeat EGD with dilation. Continue sips of liquids for now. Continue TPN. Current Visit: Yes Status: Acute Code(s): R10.9 - UNSPECIFIED ABDOMINAL PAIN SNOMED Code(s): 75673934
[2024-03-11 16:21] LABS: Glucose,Whole Blood 101 mg/dL (70-110)
[2024-03-11 20:46] LABS: Glucose,Whole Blood 98 mg/dL (70-110)
--- NOTE | 2024-03-11 22:03 | PN ---
PROGRESS NOTE SUBJECTIVE: This is a 33-year-old -[place] female with nausea, vomiting, constipation. She has been on tube feeds over weekend, slowly improve her oral intake if not PE. She is on blood thinners, Lovenox twice a day. She is breathing better, breathing stable. OBJECTIVE: CARDIOVASCULAR: S1, S2. LUNGS: Transmitted upper sounds. ENDOCRINE: BMI is over 40. PLANS: Continue current treatment with IV tube feeding. Possibly do a procedure tomorrow as she does not swallow better. Continue with blood thinners, Lovenox, and breathing treatments. Prognosis guarded. MMODL / IJN: [id number] /
[2024-03-12 05:51] LABS: ALT 79 U/L (4-34); AST 50 U/L (14-36); African American GFR (CKD) >90 (>60 ml/min/1.73 sqM); Albumin 2.4 g/dL (3.5-5.0); Alkaline Phosphatase 58 U/L (38-126); Anion Gap 3 mmol/L; Blood Urea Nitrogen 11 mg/dL (7-17); Calcium 8.7 mg/dL (8.4-10.2); Carbon Dioxide 27 mmol/L (22-30); Chloride 109 mmol/L (98-107); Globulin 2.5 g/dL; Glucose 115 mg/dL (74-99); Magnesium 1.7 mg/dL (1.6-2.3); Non-African American GFR(CKD) >90 (>60 ml/min/1.73 sqM); Phosphorus 4.3 mg/dL (2.5-4.5); Potassium 3.7 mmol/L (3.5-5.1); Sodium 139 mmol/L (137-145); Total Bilirubin 0.3 mg/dL (0.2-1.3); Total Protein 4.9 g/dL (6.3-8.2)
[2024-03-12 06:12] LABS: Glucose,Whole Blood 111 mg/dL (70-110)
[2024-03-12 08:39] LABS: Basophils # (A) 0.03 X 10*3/uL (0.00-0.10); Basophils % (A) 0.4 %; Eosinophils # (A) 0.17 X 10*3/uL (0.04-0.35); Eosinophils % (A) 2.3 %; HCT 32.8 % (37.2-46.3); HGB 9.9 g/dL (12.0-15.0); Lymphocytes # (A) 2.97 X 10*3/uL (0.90-5.00); Lymphocytes % (A) 40.1 %; MCH 27.2 pg (27.0-32.0); MCHC 30.2 g/dL (32.0-37.0); MCV 90.1 FL (80.0-97.0); Mean Platelet Volume 13.1 FL (9.5-12.2); Monocytes # (A) 0.85 X 10*3/uL (0.20-1.00); Monocytes % (A) 11.5 %; NRBC Per 100 WBC 0 X 10*3/uL (0.00-0.01); Neutrophils # (A) 3.35 X 10*3/uL (1.80-7.70); Neutrophils % (A) 45.3 %; Platelet Count 233 X 10*3/uL (140-440); RBC 3.64 X 10*6/uL (4.10-5.20)
[2024-03-12 11:33] LABS: Glucose,Whole Blood 116 mg/dL (70-110)
--- NOTE | 2024-03-12 14:42 | P.PN ---
Subjective Progress Note Date: 03/12/24 CHIEF COMPLAINT: Abdominal pain HISTORY OF PRESENT ILLNESS: Patient continues to complain of abdominal pain with nausea and vomiting. She reports that she is feeling about the same. She is on TPN for nutrition support. Afebrile. WBC 7.4 Hgb 9.9 creatinine 0.6 AST 50 ALT 79 PHYSICAL EXAM: VITAL SIGNS: Reviewed. GENERAL: no acute distress. ABDOMEN: Soft. Nondistended. Nontender. NEUROLOGIC: Alert and oriented. Cranial nerves II through XII grossly intact. ASSESSMENT: 1. Abdominal pain with nausea and vomiting 2. Dysphagia after recent sleeve gastrectomy 3. Protein calorie malnutrition 4. Pulmonary embolism history PLAN: -Continue TPN for nutrition support -Continue IV fluids -Continue sips of clears -Continue supportive care -Continue to monitor labs -Check B12, folate and thiamine levels Physician Street Light Wirer note has been reviewed by physician. Signing provider agrees with the documented findings, assessment, and plan of care. Objective - Vital Signs Vital signs: Vital Signs Temp 98.4 F 03/12/24 07:47 Pulse 91 03/12/24 07:47 Resp 16 03/12/24 07:47 BP 133/86 03/12/24 07:47 Pulse Ox 96 03/12/24 07:47 FiO2 Intake & Output 03/11/24 03/12/24 03/12/24 18:59 06:59 18:59 Intake Total 1039 1160 Balance 1039 1160 Weight 105.46 kg Intake: Intake, IV Titration 1039 1160 Amount Sodium Chloride 0.9% 1, 600 000 ml @ 75 mls/hr IV . [id number] [facility] Rx#:[id number] Sodium Phosphate 9 mmol 1039 Sodium Acetate 30 meq Potassium Acetate 20 meq Magnesium Sulfate gm 0.5 gm Calcium Gluconate 1 gm In Amino Acids 5 %/ Dextrose 20 % 1,000 ml @ 70 mls/hr IV .BY DURATION [facility] Rx#:[id number] Sodium Phosphate 9 mmol 560 Sodium Acetate 30 meq Potassium Acetate 20 meq Magnesium Sulfate gm 0.5 gm Calcium Gluconate 1 gm In Amino Acids 5 %/ Dextrose 20 % 1,000 ml @ 70 mls/hr IV .BY DURATION [facility] Rx#:[id number] Other: Voiding Method Toilet Toilet # Voids 3 2 - Labs CBC & Chem 7: 03/12/24 04:51 03/12/24 04:51 Labs: Abnormal Lab Results - Last 24 Hours (Table) 03/12/24 03/12/24 03/12/24 Range/Units 04:51 04:51 06:11 RBC 3.64 L (4.10-5.20) X 10*6/uL Hgb 9.9 L (12.0-15.0) g/dL Hct 32.8 L (37.2-46.3) % MCHC 30.2 L (32.0-37.0) g/dL RDW 20.0 H (11.5-14.5) % MPV 13.1 H (9.5-12.2) FL Chloride 109 H (98-107) mmol/L Creatinine 0.46 L (0.52-1.04) mg/dL Glucose 115 H (74-99) mg/dL POC Glucose (mg/dL) 111 H (70-110) mg/dL AST 50 H (14-36) U/L ALT 79 H (4-34) U/L Total Protein 4.9 L (6.3-8.2) g/dL Albumin 2.4 L (3.5-5.0) g/dL 03/12/24 Range/Units 11:31 RBC (4.10-5.20) X 10*6/uL Hgb (12.0-15.0) g/dL Hct (37.2-46.3) % MCHC (32.0-37.0) g/dL RDW (11.5-14.5) % MPV (9.5-12.2) FL Chloride (98-107) mmol/L Creatinine (0.52-1.04) mg/dL Glucose (74-99) mg/dL POC Glucose (mg/dL) 116 H (70-110) mg/dL AST (14-36) U/L ALT (4-34) U/L Total Protein (6.3-8.2) g/dL Albumin (3.5-5.0) g/dL
[2024-03-12 16:36] LABS: Glucose,Whole Blood 118 mg/dL (70-110)
[2024-03-12] MEDS: 1: MVI, ADULT NO.4 WITH VIT K 10 ML, TRACE (CONC-1ML/DOSE) 1 ML, SODIUM PHOSPHATE 9 MMOL IV SCH (18:10)
[2024-03-12] MEDS: PANTOPRAZOLE 40 MG/10 ML VIAL IVP SCH (20:03)
[2024-03-12 21:02] LABS: Glucose,Whole Blood 115 mg/dL (70-110)
--- NOTE | 2024-03-12 23:40 | PN ---
PROGRESS NOTE SUBJECTIVE: She is complaining of retractable nausea and vomiting. TPN nutrition is being given through IV. OBJECTIVE: CARDIOVASCULAR: S1, S2. LUNGS: Clear. GI: Soft. HEMATOLOGY: Negative for Homans. PSYCH: Fair mood and affect. Advance diet as tolerated. Tube feeding and TPN at home apparently for 1-2 weeks. Hopefully, she will not vomit, although she vomited this afternoon on clear liquids. Prognosis guarded. Start on blood thinners. Lovenox for PE. No signs of respiratory distress. Vital signs reviewed. MMODL / IJN: [id number] /
[2024-03-13 05:05] LABS: ALT 69 U/L (4-34); AST 42 U/L (14-36); African American GFR (CKD) >90 (>60 ml/min/1.73 sqM); Albumin 2.4 g/dL (3.5-5.0); Alkaline Phosphatase 61 U/L (38-126); Anion Gap 2 mmol/L; Blood Urea Nitrogen 10 mg/dL (7-17); Calcium 8.7 mg/dL (8.4-10.2); Carbon Dioxide 26 mmol/L (22-30); Chloride 109 mmol/L (98-107); Globulin 2.4 g/dL; Glucose 115 mg/dL (74-99); Magnesium 1.7 mg/dL (1.6-2.3); Non-African American GFR(CKD) >90 (>60 ml/min/1.73 sqM); Phosphorus 4.7 mg/dL (2.5-4.5); Potassium 3.7 mmol/L (3.5-5.1); Sodium 137 mmol/L (137-145); Total Bilirubin 0.4 mg/dL (0.2-1.3); Total Protein 4.8 g/dL (6.3-8.2)
[2024-03-13 05:38] LABS: Glucose,Whole Blood 110 mg/dL (70-110)
[2024-03-13 08:41] LABS: Basophils # (A) 0.04 X 10*3/uL (0.00-0.10); Basophils % (A) 0.6 %; Eosinophils # (A) 0.12 X 10*3/uL (0.04-0.35); Eosinophils % (A) 1.8 %; HCT 32.7 % (37.2-46.3); HGB 9.4 g/dL (12.0-15.0); Lymphocytes # (A) 2.97 X 10*3/uL (0.90-5.00); Lymphocytes % (A) 43.9 %; MCH 26.8 pg (27.0-32.0); MCHC 28.7 g/dL (32.0-37.0); MCV 93.2 FL (80.0-97.0); Mean Platelet Volume 13.8 FL (9.5-12.2); Monocytes # (A) 0.56 X 10*3/uL (0.20-1.00); Monocytes % (A) 8.3 %; NRBC Per 100 WBC 0 X 10*3/uL (0.00-0.01); Neutrophils # (A) 3.06 X 10*3/uL (1.80-7.70); Neutrophils % (A) 45.3 %; Platelet Count 212 X 10*3/uL (140-440); RBC 3.51 X 10*6/uL (4.10-5.20); RDW 19.9 % (11.5-14.5); WBC 6.76 X 10*3/uL (4.50-10.00)
[2024-03-13] MEDS ORDERED: ACETAMINOPHEN ORAL SUSP 160 MG/5 ML CUP PO PRN (11:12)
[2024-03-13 11:29] LABS: Glucose,Whole Blood 91 mg/dL (70-110)
[2024-03-13] MEDS: ACETAMINOPHEN ORAL SUSP (PEDS) 3,840 MG/120 ML BOTTLE PO PRN (12:43)
--- NOTE | 2024-03-13 14:46 | P.PN ---
Subjective Progress Note Date: 03/13/24 CHIEF COMPLAINT: Abdominal pain HISTORY OF PRESENT ILLNESS: Patient continues to complain of abdominal pain with nausea and vomiting. She does not feel ready for discharge. She is on TPN for nutrition support. Afebrile. WBC 6.76 AST 42 ALT 69 vitamin B12 high 1032 folate 5.60 thiamine pending PHYSICAL EXAM: VITAL SIGNS: Reviewed. GENERAL: no acute distress. ABDOMEN: Soft. Nondistended. NEUROLOGIC: Alert and oriented. Cranial nerves II through XII grossly intact. ASSESSMENT: 1. Abdominal pain with nausea and vomiting 2. Dysphagia after recent sleeve gastrectomy 3. Protein calorie malnutrition 4. Pulmonary embolism history PLAN: -Continue TPN for nutrition support -Continue IV fluids -Continue sips of clears -Continue supportive care -Continue to monitor labs -Follow-up on thiamine level -Discontinue patient's narcotics for Dilaudid and [place]. Liquid Tylenol ordered for pain Physician It Sales Representative note has been reviewed by physician. Signing provider agrees with the documented findings, assessment, and plan of care. Objective - Vital Signs Vital signs: Vital Signs Temp 98.6 F 03/13/24 12:57 Pulse 86 03/13/24 12:57 Resp 15 03/13/24 12:57 BP 108/73 03/13/24 12:57 Pulse Ox 98 03/13/24 12:57 FiO2 Intake & Output 03/12/24 03/13/24 03/13/24 18:59 06:59 18:59 Intake Total 1160 1047.667 Balance 1160 1047.667 Weight 105.46 kg Intake: Intake, IV Titration 1160 1047.667 Amount Mvi, Adult No.4 with Vit 1047.667 K 10 ml Trace (Conc-1Ml/ Dose) 1 ml Sodium Phosphate 9 mmol Sodium Acetate 30 meq Potassium Acetate 20 meq Magnesium Sulfate gm 0.5 gm Calcium Gluconate 1 gm In Amino Acids 5 %/Dextrose 20 % 1 ,000 ml @ 70 mls/hr IV . BY DURATION [facility] Rx#: [id number] Sodium Chloride 0.9% 1, 600 000 ml @ 75 mls/hr IV . [id number] [facility] Rx#:[id number] Sodium Phosphate 9 mmol 560 Sodium Acetate 30 meq Potassium Acetate 20 meq Magnesium Sulfate gm 0.5 gm Calcium Gluconate 1 gm In Amino Acids 5 %/ Dextrose 20 % 1,000 ml @ 70 mls/hr IV .BY DURATION [facility] Rx#:[id number] Other: Voiding Method Toilet # Voids 1 - Labs CBC & Chem 7: 03/13/24 04:22 03/13/24 04:22 Labs: Abnormal Lab Results - Last 24 Hours (Table) 03/12/24 03/12/24 03/12/24 Range/Units 04:51 16:35 21:01 RBC (4.10-5.20) X 10*6/uL Hgb (12.0-15.0) g/dL Hct (37.2-46.3) % MCH (27.0-32.0) pg MCHC (32.0-37.0) g/dL RDW (11.5-14.5) % MPV (9.5-12.2) FL Chloride (98-107) mmol/L Creatinine (0.52-1.04) mg/dL Glucose (74-99) mg/dL POC Glucose (mg/dL) 118 H 115 H (70-110) mg/dL Phosphorus (2.5-4.5) mg/dL AST (14-36) U/L ALT (4-34) U/L Total Protein (6.3-8.2) g/dL Albumin (3.5-5.0) g/dL Vitamin B12 1032.0 H (200.0-944.0) pg/mL 03/13/24 03/13/24 Range/Units 04:22 04:22 RBC 3.51 L (4.10-5.20) X 10*6/uL Hgb 9.4 L (12.0-15.0) g/dL Hct 32.7 L (37.2-46.3) % MCH 26.8 L (27.0-32.0) pg MCHC 28.7 L (32.0-37.0) g/dL RDW 19.9 H (11.5-14.5) % MPV 13.8 H (9.5-12.2) FL Chloride 109 H (98-107) mmol/L Creatinine 0.40 L (0.52-1.04) mg/dL Glucose 115 H (74-99) mg/dL POC Glucose (mg/dL) (70-110) mg/dL Phosphorus 4.7 H (2.5-4.5) mg/dL AST 42 H (14-36) U/L ALT 69 H (4-34) U/L Total Protein 4.8 L (6.3-8.2) g/dL Albumin 2.4 L (3.5-5.0) g/dL Vitamin B12 (200.0-944.0) pg/mL
[2024-03-13] MEDS: KETOROLAC 15 MG/ML 1 ML VIAL IVP PRN (15:23)
[2024-03-13 16:29] LABS: Glucose,Whole Blood 114 mg/dL (70-110)
[2024-03-13] MEDS: ACETAMINOPHEN IV (For NPO) 1,000 MG in EMPTY BAG 1 BAG IVPB SCH (19:35)
[2024-03-13 21:48] LABS: Glucose,Whole Blood 101 mg/dL (70-110)
[2024-03-13] MEDS ORDERED: ACETAMINOPHEN IV (For NPO) 1,000 MG in EMPTY BAG 1 BAG IVPB SCH (23:00)
--- NOTE | 2024-03-13 23:03 | PN ---
PROGRESS NOTE SUBJECTIVE: Geneva Chavez is possibly going to go home today. Medically, she is stable except for she get tube feedings. She did get parental nutrition at home. OBJECTIVE: VITAL SIGNS: Temperature 98.4, pulse 87, respiratory rate 16 to 18, blood pressure 109/75, 98% on room air. Vital signs stable. Afebrile. NEUROLOGIC: Alert and oriented x3. She has blood thinners, going for PE. Prognosis guarded. Continue current treatment. Continue rehydration. Prognosis guarded. MMODL / IJN: [id number] /
[2024-03-14] MEDS: ZOLPIDEM 5 MG TAB PO PRN (00:34)
[2024-03-14] MEDS: 1: MVI, ADULT NO.4 WITH VIT K 10 ML, TRACE (CONC-1ML/DOSE) 1 ML, SODIUM ACETATE 30 MEQ, IV SCH (00:59)
[2024-03-14 05:38] LABS: African American GFR (CKD) >90 (>60 ml/min/1.73 sqM); Anion Gap 2 mmol/L; Blood Urea Nitrogen 8 mg/dL (7-17); Calcium 8.9 mg/dL (8.4-10.2); Carbon Dioxide 26 mmol/L (22-30); Chloride 109 mmol/L (98-107); Glucose 98 mg/dL (74-99); Magnesium 1.6 mg/dL (1.6-2.3); Non-African American GFR(CKD) >90 (>60 ml/min/1.73 sqM); Phosphorus 3.1 mg/dL (2.5-4.5); Potassium 3.8 mmol/L (3.5-5.1); Sodium 137 mmol/L (137-145)
[2024-03-14 06:14] LABS: Glucose,Whole Blood 127 mg/dL (70-110)
[2024-03-14 09:24] VITALS: BP 100/68; PULSE 85; RESP 18; TEMP 97.5
[2024-03-14] MEDS ORDERED: LORazepam 2 MG/ML INJ IV PRN (11:22)
--- NOTE | 2024-03-14 12:42 | P.DS ---
Providers Date of admission: 03/08/24 12:26 Expected date of discharge: 03/14/24 Attending physician: Rogelio Liu Primary care physician: [facility] Hospital Course: Discharge diagnosis 1. Abdominal pain with nausea and vomiting 2. Dysphagia after recent sleeve gastrectomy 3. Severe Protein calorie malnutrition 4. Pulmonary embolism 5. Narcotic seeking behavior 6. Anxiety Hospital course This is a 33-year-old female who with history of sleeve gastrectomy on 12/20/2023. She presented to the hospital with complaints of right upper quadrant abdominal pain with nausea and vomiting. She did have a CT scan abdomen pelvis which reported no evidence of leak. She is maintained on TPN for nutrition support. Patient did receive TPN and IV fluid hydration during this admission. Patient had a normal abdominal CT scan. Her lab work is normal. White count is normal. No apparent signs of acute pain. Patient is usually sleeping in her room. Patient is agreeable for discharge. Patient was seen and examined with Dr. Gilberto vazquez. Patient was strongly encouraged to follow-up with the GI service out of [facility]. She does have an appointment with them on March 19. Patient has outpatient TPN arranged. Patient is stable for discharge. Please refer to chart for any further details. Physician Software Applications Designer note has been reviewed by physician. Signing provider agrees with the documented findings, assessment, and plan of care. Patient Condition at Discharge: Stable Plan - Discharge Summary Discharge Rx Participant: Yes New Discharge Prescriptions: New Acetaminophen Oral Susp [Tylenol] 1,000 mg PO Q6H #400 ml Acetaminophen/Codeine Liquid [Tylenol w/codeine Elixir] 10 ml PO Q6H PRN 3 Days #120 ml PRN Reason: Pain Continue Enoxaparin [Lovenox] 105 mg SQ Q12H Asenapine [Saphris] 5 mg SUBLINGUAL HS Discharge Medication List Asenapine [Saphris] 5 mg SUBLINGUAL HS 03/08/24 [History] Enoxaparin [Lovenox] 105 mg SQ Q12H 03/08/24 [History] Acetaminophen Oral Susp [Tylenol] 1,000 mg PO Q6H #400 ml 03/14/24 [Rx] Acetaminophen/Codeine Liquid [Tylenol w/codeine Elixir] 10 ml PO Q6H PRN 3 Days #120 ml 03/14/24 [Rx] Follow up Appointment(s)/Referral(s): Justin Molina MD [Primary Care Provider] - 03/14/24 10:30 am [facility], [NON-STAFF] - As Needed [facility], [REFERRING] - As Needed Rogelio Liu MD [STAFF PHYSICIAN] - 03/27/24 2:10 pm Discharge Disposition: HOME SELF-CARE
== END 2024-03-14 13:20 | disposition home or self-care (01) | DRG 254 ==
LOC: EC 07:31 → 4SSUR 12:26
PROVIDERS: ADMIT Surgery; ATTEND Surgery
PROC: 3E0336Z Introduction of Nutritional Substance into Peripheral Vein, Percutaneous Approach (ICD-10-PCS; principal; 2024-03-08)
DX: R13.10 Dysphagia, unspecified (principal); R11.2 Nausea with vomiting, unspecified; Z98.84 Bariatric surgery status; E43 Unspecified severe protein-calorie malnutrition; Z68.41 Body mass index [BMI] 40.0-44.9, adult; E86.0 Dehydration; F41.9 Anxiety disorder, unspecified; F31.9 Bipolar disorder, unspecified; I25.10 Atherosclerotic heart disease of native coronary artery without angina pectoris; I26.99 Other pulmonary embolism without acute cor pulmonale; Z82.49 Family history of ischemic heart disease and other diseases of the circulatory system; Z90.49 Acquired absence of other specified parts of digestive tract; Z86.711 Personal history of pulmonary embolism; Z91.040 Latex allergy status; D50.9 Iron deficiency anemia, unspecified; Z76.5 Malingerer [conscious simulation]; Z98.51 Tubal ligation status
CPT/HCPCS: 36415; 80048; 80053; 82040; 82330; 82607; 82746; 83735; 84100; 84425; 84478; 85025; 93005; 96361; 96374; 96375; 96376; 99285

== ENCOUNTER 2024-03-16 08:13 | Emergency (ER) | payer OTHER ==
--- NOTE | 2024-03-16 08:45 | ED ---
Abdominal Pain HPI - General Chief Complaint: Abdominal Pain Stated Complaint: Abdominal Pain Time Seen by Provider: 03/16/24 08:21 Source: patient, RN notes reviewed Mode of arrival: ambulatory Limitations: no limitations - History of Present Illness Initial Comments: This is a 33-year-old female who presents to the emergency department for abdominal pain, nausea, and vomiting. Patient was admitted to this facility on 03/08 through 03/14 for intractable abdominal pain with nausea and vomiting. Patient had a sleeve gastrectomy on 12/20/2023 and was transferred to [facility] about a month later for widening of the sleeve. She has been getting bouts of intractable pain in the right upper quadrant with nausea and vomiting. Currently maintained on TPN which she states was set up by [facility]. She follows with MICHOACANO Christian at [facility] in [place] and has an appointment scheduled on 03/19. However, states that since discharge no 03/14 she has continued to have pain as well as intractable nausea and vomiting, prompting her to come back to the emergency department. Denies any fevers or chills. She does have a pulmonary embolus and is on Lovenox. States that the blood thinner use has prevented them from doing any intervention sooner. MD Complaint: abdominal pain - Related Data Home Medications Medication Instructions Recorded Confirmed Asenapine [Saphris] 5 mg SUBLINGUAL HS 03/08/24 03/16/24 Enoxaparin [Lovenox] 105 mg SQ Q12H 03/08/24 03/16/24 Acetaminophen Oral Susp [Tylenol] 1,000 mg PO Q6H PRN 03/16/24 03/16/24 Previous Rx's Medication Instructions Recorded Acetaminophen/Codeine Liquid 10 ml PO Q6H PRN 3 Days #120 ml 03/14/24 [Tylenol w/codeine Elixir] Allergies Allergy/AdvReac Type Severity Reaction Status Date / Time latex Allergy Rash/Hives Verified 03/16/24 13:55 Review of Systems ROS Statement: Those systems with pertinent positive or pertinent negative responses have been documented in the HPI. ROS Other: All systems not noted in ROS Statement are negative. Past Medical History Past Medical History: GERD/Reflux, Sleep Apnea/CPAP/BIPAP Additional Past Medical History / Comment(s): iron defiency anemia, currently getting iron infusions, no cpap used, pulmonary embolism 02/13/24 History of Any Multi-Drug Resistant Organisms: None Reported Past Surgical History: Bariatric Surgery, Section, Cholecystectomy, Tubal Ligation, Uterine Ablation Additional Past Surgical History / Comment(s): 2008 AND 2015 (c/s) and 2010 (cholecyst). 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 Past Anesthesia/Blood Transfusion Reactions: No Reported Reaction Past Psychological History: Anxiety, Bipolar, Depression Smoking Status: Former smoker Past Alcohol Use History: None Reported Past Drug Use History: None Reported - Past Family History Mother Family Medical History: Asthma, COPD, Diabetes Mellitus, Hypertension Additional Family Medical History / Comment(s): depression, anxiety, sleep apnea, Father Family Medical History: Hypertension Additional Family Medical History / Comment(s): arthritis General Exam Limitations: no limitations General appearance: alert, in no apparent distress Head exam: Present: atraumatic, normocephalic, normal inspection Respiratory exam: Present: normal lung sounds bilaterally. Absent: respiratory distress, wheezes, rales, rhonchi, stridor Cardiovascular Exam: Present: regular rate, normal rhythm, normal heart sounds. Absent: systolic murmur, diastolic murmur, rubs, gallop, clicks GI/Abdominal exam: Present: soft, tenderness (RUQ). Absent: distended Neurological exam: Present: alert, oriented X3, CN II-XII intact Psychiatric exam: Present: normal affect, normal mood Skin exam: Present: warm, dry, intact, normal color. Absent: rash Course Vital Signs 03/16/24 03/16/24 03/16/24 08:14 11:00 14:00 Temperature 98.1 F Pulse Rate 105 H 107 H 91 Respiratory 20 18 16 Rate Blood Pressure 161/81 118/85 118/83 O2 Sat by Pulse 99 96 98 Oximetry Medical Decision Making - Medical Decision Making This is a 33 year old female who presents to the emergency department for abdominal pain, nausea, and vomiting. Was pt. sent in by a medical professional or institution? @ -No Did you speak to anyone other than the patient for history? @ -No Did you review nursing and triage notes? @ -Yes, and I agree, it is accurate with regards to the patient's symptoms. Were old charts reviewed? @ -CT scan of the abdomen and pelvis from 03/07/24 demonstrating no significant acute findings to account for her symptoms. Differential Diagnosis? @ -Differential Abdominal Pain Women: Appendicitis, Cholecystitis, diverticulosis, ischemic bowel, pancreatitis, hepatitis, UTI, gastroenteritis, AAA, incarcerated hernia, bowel obstruction, constipation, inflammatory bowel, hepatitis, peptic ulcer disease, splenic infarction, perforated viscus, vulvitis, ovarian torsion, PID, kidney stone, placenta abruption, this is not meant to be an all-inclusive list EKG interpreted by me (3pts min.)? @ -Not obtained X-rays interpreted by me (1pt min.)? @ -Not obtained CT interpreted by me (1pt min.)? @ -Not obtained U/S interpreted by me (1pt. min.)? @ -Not obtained What testing was considered but not performed? (CT, X-rays, U/S, labs)? Why? @ -None What meds were considered but not given? Why? @ -None Did you discuss the management of the patient with other professionals? @ -Yes, Dr. Liu, general surgery, who requests transfer to [facility]. Dr Winslow, hospitalist at [facility] accepts the patient for direct admission transfer. Case discussed with Dr. Molina who will consult on the patient while waiting on [facility] transfer. Did you reconcile home meds? @ -No Was smoking cessation discussed for >3mins.? @ -No Was critical care preformed (if so, how long)? @ -No Were there social determinants of health that impacted care today? How? (Homelessness, low income, unemployed, alcoholism, drug addiction, transportati on, low edu. Level, literacy, decrease access to med. care, halfway, rehab)? @ -No Was there de-escalation of care discussed even if they declined? (Discuss DNR or withdrawal of care, Hospice)? @ -No What co-morbidities impacted this encounter? (DM, HTN, Smoking, COPD, CAD, Cancer, CVA, Hep., AIDS, mental health diagnosis, sleep apnea, morbid obesity)? @ -Bariatric surgery patient Was patient admitted / discharged? @ -Transferred. Lab work fairly unremarkable. Patient has no leukocytosis or lactic acidosis. Mild elevation in LFTs is stable when compared with prior. Urinalysis negative for signs of infection. Given that symptoms are consistent with ongoing problems and she had recent imaging last month, no additional imaging was obtained. She required multiple doses of IV Dilaudid for symptomatic control. case discussed with Dr. Liu, general surgery. He requested transfer to [facility] where the patient is established with GI for continuity of care and further intervention as needed. Case discussed with Nayla, hospitalist at [facility], who accepts the patient for direct admission transfer. Dr. Molina will consult on the patient for care in the emergency department while she is waiting on a bed to become available at [facility]. Undiagnosed new problem with uncertain prognosis? @ -None Drug Therapy requiring intensive monitoring for toxicity (Heparin, Nitro, Insulin, Cardizem)? @ -None Were any procedures done? @ -None Diagnosis/symptom? @ -Intractable abdominal pain, intractable nausea and vomiting Acute, or Chronic, or Acute on Chronic? @ -Chronic Uncomplicated (without systemic symptoms) or Complicated (systemic symptoms)? @ -Complicated Side effects of treatment? @ -None Exacerbation, Progression, or Severe Exacerbation] @ -Progression Poses a threat to life or bodily function? @ -Yes This case was discussed in detail with the attending ED physician, Dr. Valenzuela. Presentation, findings, and treatment plan discussed in detail as well. - Lab Data Result diagrams: 03/16/24 08:52 03/16/24 08:52 Lab Results 03/16/24 03/16/24 03/16/24 Range/Units 08:52 08:52 08:52 WBC 9.4 (3.8-10.6) k/uL RBC 4.27 (3.80-5.40) m/uL Hgb 11.8 (11.4-16.0) gm/dL Hct 39.3 (34.0-46.0) % MCV 91.9 (80.0-100.0) fL MCH 27.7 (25.0-35.0) pg MCHC 30.1 L (31.0-37.0) g/dL RDW 18.3 H (11.5-15.5) % Plt Count 263 (150-450) k/uL MPV 9.8 Neutrophils % 58 % Lymphocytes % 31 % Monocytes % 8 % Eosinophils % 1 % Basophils % 1 % Neutrophils # 5.4 (1.3-7.7) k/uL Lymphocytes # 2.9 (1.0-4.8) k/uL Monocytes # 0.7 (0-1.0) k/uL Eosinophils # 0.1 (0-0.7) k/uL Basophils # 0.1 (0-0.2) k/uL Hypochromasia Marked Anisocytosis Slight Sodium 141 (137-145) mmol/L Potassium 3.8 (3.5-5.1) mmol/L Chloride 110 H (98-107) mmol/L Carbon Dioxide 24 (22-30) mmol/L Anion Gap 7 mmol/L BUN 15 (7-17) mg/dL Creatinine 0.50 L (0.52-1.04) mg/dL Est GFR (CKD-EPI)AfAm >90 (>60 ml/min/1.73 sqM) Est GFR (CKD-EPI)NonAf >90 (>60 ml/min/1.73 sqM) Glucose 97 (74-99) mg/dL Plasma Lactic Acid Case (0.7-2.0) mmol/L Calcium 9.0 (8.4-10.2) mg/dL Total Bilirubin 0.5 (0.2-1.3) mg/dL AST 45 H (14-36) U/L ALT 65 H (4-34) U/L Alkaline Phosphatase 95 (38-126) U/L Total Protein 6.3 (6.3-8.2) g/dL Albumin 3.3 L (3.5-5.0) g/dL Amylase 48 (30-110) U/L Lipase 91 (23-300) U/L Urine Color Light Yellow Urine Appearance Cloudy H (Clear) Urine pH 6.5 (5.0-8.0) Ur Specific [place] 1.020 (1.001-1.035) Urine Protein Negative (Negative) Urine Glucose (UA) Negative (Negative) Urine Ketones Negative (Negative) Urine Blood Negative (Negative) Urine Nitrite Negative (Negative) Urine Bilirubin Negative (Negative) Urine Urobilinogen <2.0 (<2.0) mg/dL Ur Leukocyte Esterase Negative (Negative) Urine RBC 2 (0-5) /hpf Urine WBC 2 (0-5) /hpf Ur Squamous Epith Cells 6 H (0-4) /hpf Hyaline Casts 1 (0-2) /lpf Urine Mucus Occasional H (None) /hpf SARS-CoV-2 (PCR) (Not Detectd) 03/16/24 03/16/24 Range/Units 08:52 12:55 WBC (3.8-10.6) k/uL RBC (3.80-5.40) m/uL Hgb (11.4-16.0) gm/dL Hct (34.0-46.0) % MCV (80.0-100.0) fL MCH (25.0-35.0) pg MCHC (31.0-37.0) g/dL RDW (11.5-15.5) % Plt Count (150-450) k/uL MPV Neutrophils % % Lymphocytes % % Monocytes % % Eosinophils % % Basophils % % Neutrophils # (1.3-7.7) k/uL Lymphocytes # (1.0-4.8) k/uL Monocytes # (0-1.0) k/uL Eosinophils # (0-0.7) k/uL Basophils # (0-0.2) k/uL Hypochromasia Anisocytosis Sodium (137-145) mmol/L Potassium (3.5-5.1) mmol/L Chloride (98-107) mmol/L Carbon Dioxide (22-30) mmol/L Anion Gap mmol/L BUN (7-17) mg/dL Creatinine (0.52-1.04) mg/dL Est GFR (CKD-EPI)AfAm (>60 ml/min/1.73 sqM) Est GFR (CKD-EPI)NonAf (>60 ml/min/1.73 sqM) Glucose (74-99) mg/dL Plasma Lactic Acid Case 1.1 (0.7-2.0) mmol/L Calcium (8.4-10.2) mg/dL Total Bilirubin (0.2-1.3) mg/dL AST (14-36) U/L ALT (4-34) U/L Alkaline Phosphatase (38-126) U/L Total Protein (6.3-8.2) g/dL Albumin (3.5-5.0) g/dL Amylase (30-110) U/L Lipase (23-300) U/L Urine Color Urine Appearance (Clear) Urine pH (5.0-8.0) Ur Specific Ar[place] (1.001-1.035) Urine Protein (Negative) Urine Glucose (UA) (Negative) Urine Ketones (Negative) Urine Blood (Negative) Urine Nitrite (Negative) Urine Bilirubin (Negative) Urine Urobilinogen (<2.0) mg/dL Ur Leukocyte Esterase (Negative) Urine RBC (0-5) /hpf Urine WBC (0-5) /hpf Ur Squamous Epith Cells (0-4) /hpf Hyaline Casts (0-2) /lpf Urine Mucus (None) /hpf SARS-CoV-2 (PCR) Not Detected (Not Detectd) Disposition Clinical Impression: Intractable abdominal pain, Intractable nausea and vomiting Disposition: OTHER INSTITUTION NOT DEFINED Referrals: Justin Molina MD [Primary Care Provider] - 1-2 days - Out of Hospital Transfer - Req. Specs Out of Hospital Transfer - Requested Specifics: Other Non-Acute ([facility])
[2024-03-16] MEDS: MORPHINE SULFATE 4 MG/ML SYRINGE IVP STA (09:00)
[2024-03-16] MEDS: KETOROLAC 15 MG/ML 1 ML VIAL IVP STA (09:00)
[2024-03-16] MEDS: ONDANSETRON 4 MG/2 ML VIAL IVP STA (09:01)
[2024-03-16] MEDS: SODIUM CHLORIDE 0.9% 1,000 ML IV STA (09:04)
[2024-03-16 09:06] LABS: Anisocytosis Slight; Basophils # (A) 0.1 k/uL (0-0.2); Basophils % (A) 1 %; Eosinophils # (A) 0.1 k/uL (0-0.7); Eosinophils % (A) 1 %; HCT 39.3 % (34.0-46.0); HGB 11.8 gm/dL (11.4-16.0); Hypochromasia Marked; Lymphocytes # (A) 2.9 k/uL (1.0-4.8); Lymphocytes % (A) 31 %; MCH 27.7 pg (25.0-35.0); MCHC 30.1 g/dL (31.0-37.0); MCV 91.9 fL (80.0-100.0); Mean Platelet Volume 9.8; Monocytes # (A) 0.7 k/uL (0-1.0); Monocytes % (A) 8 %; Neutrophils # (A) 5.4 k/uL (1.3-7.7); Neutrophils % (A) 58 %; Platelet Count 263 k/uL (150-450); RBC 4.27 m/uL (3.80-5.40); RDW 18.3 % (11.5-15.5); WBC 9.4 k/uL (3.8-10.6)
[2024-03-16 09:35] LABS: ALT 65 U/L (4-34); AST 45 U/L (14-36); African American GFR (CKD) >90 (>60 ml/min/1.73 sqM); Albumin 3.3 g/dL (3.5-5.0); Alkaline Phosphatase 95 U/L (38-126); Amylase 48 U/L (30-110); Anion Gap 7 mmol/L; Blood Urea Nitrogen 15 mg/dL (7-17); Carbon Dioxide 24 mmol/L (22-30); Chloride 110 mmol/L (98-107); Glucose 97 mg/dL (74-99); Non-African American GFR(CKD) >90 (>60 ml/min/1.73 sqM); Potassium 3.8 mmol/L (3.5-5.1); Sodium 141 mmol/L (137-145); Total Bilirubin 0.5 mg/dL (0.2-1.3); Total Protein 6.3 g/dL (6.3-8.2)
[2024-03-16 10:06] LABS: Appearance,Urine Cloudy (Clear); Bilirubin,Urine Negative (Negative); Blood,Urine Negative (Negative); Color,Urine Light Yellow; Glucose,Urine (UA) Negative (Negative); Hyaline Casts,Urine 1 /lpf (0-2); Ketones,Urine Negative (Negative); Leukocyte Esterase,Urine Negative (Negative); Mucus,Urine Occasional /hpf; Nitrite,Urine Negative (Negative); PH, Urine 6.5 (5.0-8.0); Protein,Urine Negative (Negative); RBC,Urine 2 /hpf (0-5); Squamous Epithelial Cell,Urine 6 /hpf (0-4); Urobilinogen,Urine <2.0 mg/dL (<2.0); WBC,Urine 2 /hpf (0-5)
[2024-03-16] MEDS: LORazepam 2 MG/ML INJ IV STA (11:08)
[2024-03-16] MEDS: HYDROmorphone 1 MG/ML 1 ML SYRINGE IVP STA (11:09)
[2024-03-16 12:53] LABS: Lipase 91 U/L (23-300)
[2024-03-16] MEDS ORDERED: NALOXONE 0.4 MG/ML 1 ML VIAL IV PRN (15:27)
[2024-03-16] MEDS ORDERED: ACETAMINOPHEN TAB 325 MG TAB PO PRN (15:27)
[2024-03-16] MEDS ORDERED: ACET/COD 120MG/12MG LIQ 5ML CUP PO PRN (15:28)
[2024-03-16] MEDS ORDERED: ACETAMINOPHEN ORAL SUSP (PEDS) 3,840 MG/120 ML BOTTLE PO PRN (15:28)
[2024-03-16] MEDS: SODIUM CHLORIDE 0.9% 1,000 ML IV SCH (15:58)
[2024-03-16] MEDS: LORazepam 2 MG/ML INJ IV PRN (15:59)
[2024-03-16 17:19] LABS: Prothrombin Time 11.1 sec (10.0-12.5)
[2024-03-16] MEDS: HYDROmorphone 1 MG/ML 1 ML SYRINGE IVP PRN (18:52)
[2024-03-16] MEDS: PANTOPRAZOLE 40 MG/10 ML VIAL IV STA (19:36)
[2024-03-16] MEDS: ASENAPINE 5 MG TAB SUBLINGUAL SCH (21:17)
[2024-03-16] MEDS: ENOXAPARIN 100 MG/ML SYRINGE SQ SCH (21:20)
[2024-03-16] MEDS: HYDROmorphone 0.5 MG/0.5 ML SYRINGE IVP PRN (21:21)
[2024-03-17] MEDS: PANTOPRAZOLE 40 MG/10 ML VIAL IV SCH (08:44)
[2024-03-17] MEDS: ONDANSETRON 4 MG/2 ML VIAL IVP PRN (17:15)
[2024-03-17 20:12] VITALS: BP 120/68; PULSE 98; TEMP 98.9
[2024-03-17 20:18] LABS: Glucose,Whole Blood 77 mg/dL (70-110)
[2024-03-17 21:04] VITALS: RESP 16
== END 2024-03-17 21:03 | disposition other institution (70) ==
LOC: EC 08:13
DX: R10.11 Right upper quadrant pain (principal); R11.2 Nausea with vomiting, unspecified; Z87.891 Personal history of nicotine dependence; Z91.040 Latex allergy status; Z90.49 Acquired absence of other specified parts of digestive tract
CPT/HCPCS: 36415 ×2; 93005; 80053; 82150; 83605; 83690; 85025; 85610; 85730; 81001; 87635; 99285; 96374; 96375 ×5; 96376 ×12; 96361 ×6; J2060 ×2; J2270; J2405 ×2; J1650 ×2; J1170 ×4; J1885; J2470 ×2

== ENCOUNTER 2024-03-25 21:44 | Observation (INO) | payer OTHER ==
[2024-03-25 21:48] VITALS: BP 144/85; PULSE 109; RESP 20; TEMP 98.4
--- NOTE | 2024-03-25 23:44 | ED ---
General Adult HPI - General Source: patient, RN notes reviewed Mode of arrival: ambulatory Limitations: no limitations <Jerica Alba - Last Filed: 03/25/24 23:39> <Junior Lorenzo - Last Filed: 03/26/24 01:47> - General Chief complaint: Chest Pain Stated complaint: Chest pain Time Seen by Provider: 03/25/24 23:39 - History of Present Illness Initial comments: Quick note: 33-year-old female presents to the emergency department for evaluation of chest pain. She states that this started about an hour prior to ar rive. She denies shortness of breath. She states that she is currently receiving treatment for a PE with lovenox. (Jerica Alba) Dictation was produced using [employer] dictation software. please excuse any grammatical, word or spelling errors. Chief Complaint: 33-year-old female chest pain History of Present Illness: Patient 33-year-old female she has past medical history of bariatric surgery that was postoperatively complicated by pulmonary embolism. Patient states she is here today for chest pain. States that it is a sharp substernal chest pain. States that it radiates to her back. Denies any numbness tingling paresthesias. No diaphoresis or nausea. Patient currently on anticoagulation medications for treatment of pulmonary embolism. Patient Nu[place] any cardiac comorbidities. The ROS documented in this emergency department record has been reviewed and con firmed by me. Those systems with pertinent positive or negative responses have been documented in the HPI. All other systems are other negative and/or noncontributory. (Junior Lorenzo) - Related Data Home Medications Medication Instructions Recorded Confirmed Asenapine [Saphris] 5 mg SUBLINGUAL HS 03/08/24 03/16/24 Enoxaparin [Lovenox] 105 mg SQ Q12H 03/08/24 03/16/24 Acetaminophen Oral Susp [Tylenol] 1,000 mg PO Q6H PRN 03/16/24 03/16/24 Previous Rx's Medication Instructions Recorded Acetaminophen/Codeine Liquid 10 ml PO Q6H PRN 3 Days #120 ml 03/14/24 [Tylenol w/codeine Elixir] Allergies Allergy/AdvReac Type Severity Reaction Status Date / Time latex Allergy Rash/Hives Verified 03/16/24 13:55 morphine AdvReac Itching Verified 03/25/24 21:48 Review of Systems ROS Other: All systems not noted in ROS Statement are negative. <Jerica Alba - Last Filed: 03/25/24 23:39> ROS Other: All systems not noted in ROS Statement are negative. <Junior Lorenzo - Last Filed: 03/26/24 01:47> ROS Statement: Those systems with pertinent positive or pertinent negative responses have been documented in the HPI. Past Medical History Past Medical History: GERD/Reflux, Sleep Apnea/CPAP/BIPAP Additional Past Medical History / Comment(s): iron defiency anemia, currently getting iron infusions, no cpap used, pulmonary embolism 02/13/24 History of Any Multi-Drug Resistant Organisms: None Reported Past Surgical History: Bariatric Surgery, Section, Cholecystectomy, Tubal Ligation, Uterine Ablation Additional Past Surgical History / Comment(s): 2008 AND 2015 (c/s) and 2010 (cholecyst). 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 Past Anesthesia/Blood Transfusion Reactions: No Reported Reaction Past Psychological History: Anxiety, Bipolar, Depression Smoking Status: Former smoker Past Alcohol Use History: None Reported Past Drug Use History: None Reported - Past Family History Mother Family Medical History: Asthma, COPD, Diabetes Mellitus, Hypertension Additional Family Medical History / Comment(s): depression, anxiety, sleep apnea, Father Family Medical History: Hypertension Additional Family Medical History / Comment(s): arthritis <Jerica Alba - Last Filed: 03/25/24 23:39> General Exam Limitations: no limitations <Jerica Alba - Last Filed: 03/25/24 23:39> <Junior Lorenzo - Last Filed: 03/26/24 01:47> - General Exam Comments Initial Comments: Visual Physical Exam Vital signs reviewed General: Well-appearing, nontoxic, no acute distress. Head: Normocephalic, atraumatic Eyes: PERRLA, EOMI ENT: Airway patent Chest: Nonlabored breathing Skin: No visual rash, normal skin tone Neuro: Alert and oriented 3 Musculoskeletal: No gross abnormalities (Jerica Alba) PHYSICAL EXAM: General Impression: Alert and oriented x3, not in acute distress HEENT: Normocephalic atraumatic, extra-ocular movements intact, pupils equal and reactive to light bilaterally, mucous membranes moist. Cardiovascular: Heart regular rate and rhythm Chest: Able to complete full sentences, no retractions, no tachypnea Abdomen: abdomen soft, non-tender, non-distended, no organomegaly Musculoskeletal: Pulses present and equal in all extremities, no peripheral edema Motor: no focal deficits noted Neurological: CN II-XII grossly intact, no focal motor or sensory deficits noted Skin: Intact with no visualized rashes Psych: Normal affect and mood (Junior Lorenzo) Course Vital Signs 03/25/24 21:45 Temperature 98.4 F Pulse Rate 109 H Respiratory 20 Rate Blood Pressure 144/85 O2 Sat by Pulse 98 Oximetry EKG Findings - EKG Comments: EKG Findings:: My EKG interpretation: Ventricular rate 104, sinus tachycardia,. 190, QRS 94, QTc 397. No CT prolongation, no QTC prolongation, no ST or T-wave changes noted. Overall, this EKG is unremarkable <Junior Lorenzo - Last Filed: 03/26/24 01:47> Medical Decision Making <Jerica Alba - Last Filed: 03/25/24 23:39> - Lab Data Result diagrams: 03/26/24 00:19 03/26/24 00:19 <Junior Lorenzo - Last Filed: 03/26/24 01:47> - Medical Decision Making Quick note preformed and electronically signed by Jerica Alba PA-C (Jerica Alba) Was pt. sent in by a medical professional or institution ([facility], [employer] V[employer]OR, urgent care, hospital, or usp...) When possible be specific @ -No Did you speak to anyone other than the patient for history (EMS, parent, family, police, friend...)? What history was obtained from this source @ -No Did you review nursing and triage notes (agree or disagree)? Why? @ -I reviewed and agree with nursing and triage notes Were old charts reviewed (outside hosp., previous admission, EMS record, old EKG, old radiological studies, urgent care reports/EKG's, usp records)? Report findings @ -No old charts were reviewed Differential Diagnosis (chest pain, altered mental status, abdominal pain women, abdominal pain men, vaginal bleeding, musculoskeletal, weakness, fever, dyspnea, syncope, headache, dizziness, GI bleed, back pain, seizure, CVA, palpatations, mental health)? @Differential Chest Pain: Stable Angina, Unstable Angina, STEMI, NSTEMI Aortic Dissection, Pneumothorax, Musculoskeletal, Esophageal Spasm GERD, Cholecystitis, Pancreatitis, Zoster, this is not meant to be an all-inclusive list. EKG interpreted by me (3pts min.). @ -See above X-rays interpreted by me (1pt min.). @ -Chest x-ray is nonacute CT interpreted by me (1pt min.). @ -None done U/S interpreted by me (1pt. min.). @ -None done What testing was considered but not performed or refused? (CT, X-rays, U/S, labs)? Why? @ -None What meds were considered but not given or refused? Why? @ -None Was smoking cessation discussed for >3mins.? @ -No Were there social determinants of health that impacted care today? How? (Homelessness, low income, unemployed, alcoholism, drug addiction, transportation, low edu. Level, literacy, decrease access to med. care, alf, rehab)? @ -No Was there de-escalation of care discussed even if they declined (Discuss DNR or withdrawal of care, Hospice)? DNR status @ -No What co-morbidities impacted this encounter? (DM, HTN, Smoking, COPD, CAD, Cancer, CVA, ARF, Chemo, Hep., AIDS, mental health diagnosis, sleep apnea, morbid obesity)? @ -None Was patient admitted / discharged? Hospital course, mention meds given and route, prescriptions, significant lab abnormalities, going to OR and other pertinent info. @ -33-year-old female presents emergency department atypical chest pain typical features. Vital signs upon arrival are within acceptable limits. Laboratory evaluation is unremarkable. EKG is normal. Given aspirin will be admitted ops with consultation to cardiology. Did you discuss the management of the patient with other professionals (professionals i.e. , PA, NEWSSTAND VENDOR, lab, RT, psych nurse, licensed master social worker, plaster caster, teacher, child support officer, protective services case worker)? Give summary @ -Case discussed with hospitalist for admission Was critical care preformed (if so, how long)? @ -No Undiagnosed new problem with uncertain prognosis? @ -No Drug Therapy requiring intensive monitoring for toxicity (Heparin, Nitro, Insulin, Cardizem)? @ -No Were any procedures done? @ -No Diagnosis/symptom? Acute, or Chronic, or Acute on Chronic? Uncomplicated (without systemic symptoms) or Complicated (systemic symptoms)? @ -Chest pain Side effects of treatment? @ -No Exacerbation, Progression, or Severe Exacerbation? @ -No Poses a threat to life or bodily function? How? (Chest pain, [place], [place], pneumonia, PE, COPD, DKA, ARF, appy, cholecystitis, CVA, Diverticulitis, Homicidal, Suicidal, threat to staff... and all critical care pts) @ -yes (Junior Lorenzo) - Lab Data Lab Results 03/26/24 03/26/24 03/26/24 Range/Units 00:19 00:19 00:19 WBC 14.9 H (3.8-10.6) k/uL RBC 3.93 (3.80-5.40) m/uL Hgb 11.4 (11.4-16.0) gm/dL Hct 36.2 (34.0-46.0) % MCV 92.1 (80.0-100.0) fL MCH 29.0 (25.0-35.0) pg MCHC 31.4 (31.0-37.0) g/dL RDW 18.4 H (11.5-15.5) % Plt Count 227 (150-450) k/uL MPV 10.1 Neutrophils % 67 % Lymphocytes % 26 % Monocytes % 4 % Eosinophils % 1 % Basophils % 0 % Neutrophils # 10.0 H (1.3-7.7) k/uL Lymphocytes # 3.9 (1.0-4.8) k/uL Monocytes # 0.6 (0-1.0) k/uL Eosinophils # 0.2 (0-0.7) k/uL Basophils # 0.1 (0-0.2) k/uL Hypochromasia Moderate Anisocytosis Slight PT 11.5 (10.0-12.5) sec INR 1.1 (<1.2) APTT 31.6 H (22.0-30.0) sec Sodium 141 (137-145) mmol/L Potassium 3.5 (3.5-5.1) mmol/L Chloride 110 H (98-107) mmol/L Carbon Dioxide 22 (22-30) mmol/L Anion Gap 9 mmol/L BUN 9 (7-17) mg/dL Creatinine 0.55 (0.52-1.04) mg/dL Est GFR (CKD-EPI)AfAm >90 (>60 ml/min/1.73 sqM) Est GFR (CKD-EPI)NonAf >90 (>60 ml/min/1.73 sqM) Glucose 92 (74-99) mg/dL Calcium 9.5 (8.4-10.2) mg/dL Magnesium 1.6 (1.6-2.3) mg/dL Total Bilirubin 0.5 (0.2-1.3) mg/dL AST 26 (14-36) U/L ALT 42 H (4-34) U/L Alkaline Phosphatase 82 (38-126) U/L Troponin I (0.000-0.034) ng/mL Total Protein 6.6 (6.3-8.2) g/dL Albumin 3.6 (3.5-5.0) g/dL HCG, Quant mIU/mL 03/26/24 03/26/24 Range/Units 00:19 00:19 WBC (3.8-10.6) k/uL RBC (3.80-5.40) m/uL Hgb (11.4-16.0) gm/dL Hct (34.0-46.0) % MCV (80.0-100.0) fL MCH (25.0-35.0) pg MCHC (31.0-37.0) g/dL RDW (11.5-15.5) % Plt Count (150-450) k/uL MPV Neutrophils % % Lymphocytes % % Monocytes % % Eosinophils % % Basophils % % Neutrophils # (1.3-7.7) k/uL Lymphocytes # (1.0-4.8) k/uL Monocytes # (0-1.0) k/uL Eosinophils # (0-0.7) k/uL Basophils # (0-0.2) k/uL Hypochromasia Anisocytosis PT (10.0-12.5) sec INR (<1.2) APTT (22.0-30.0) sec Sodium (137-145) mmol/L Potassium (3.5-5.1) mmol/L Chloride (98-107) mmol/L Carbon Dioxide (22-30) mmol/L Anion Gap mmol/L BUN (7-17) mg/dL Creatinine (0.52-1.04) mg/dL Est GFR (CKD-EPI)AfAm (>60 ml/min/1.73 sqM) Est GFR (CKD-EPI)NonAf (>60 ml/min/1.73 sqM) Glucose (74-99) mg/dL Calcium (8.4-10.2) mg/dL Magnesium (1.6-2.3) mg/dL Total Bilirubin (0.2-1.3) mg/dL AST (14-36) U/L ALT (4-34) U/L Alkaline Phosphatase (38-126) U/L Troponin I <0.012 (0.000-0.034) ng/mL Total Protein (6.3-8.2) g/dL Albumin (3.5-5.0) g/dL HCG, Quant <2.4 mIU/mL Disposition <Jerica Alba - Last Filed: 03/25/24 23:39> Decision Time: 01:47 <Junior Lorenzo - Last Filed: 03/26/24 01:47> Clinical Impression: Chest pain Disposition: ADMITTED IP TO THIS HOSP Condition: Fair Referrals: Justin Molina MD [Primary Care Provider] - 1-2 days
[2024-03-26 00:37] LABS: INR 1.1 (<1.2); Partial Thromboplastin Time 31.6 sec (22.0-30.0); Prothrombin Time 11.5 sec (10.0-12.5)
[2024-03-26 00:45] LABS: ALT 42 U/L (4-34); AST 26 U/L (14-36); African American GFR (CKD) >90 (>60 ml/min/1.73 sqM); Albumin 3.6 g/dL (3.5-5.0); Alkaline Phosphatase 82 U/L (38-126); Anion Gap 9 mmol/L; Blood Urea Nitrogen 9 mg/dL (7-17); Calcium 9.5 mg/dL (8.4-10.2); Carbon Dioxide 22 mmol/L (22-30); Chloride 110 mmol/L (98-107); Glucose 92 mg/dL (74-99); Magnesium 1.6 mg/dL (1.6-2.3); Non-African American GFR(CKD) >90 (>60 ml/min/1.73 sqM); Potassium 3.5 mmol/L (3.5-5.1); Sodium 141 mmol/L (137-145); Total Bilirubin 0.5 mg/dL (0.2-1.3); Total Protein 6.6 g/dL (6.3-8.2)
[2024-03-26 00:49] LABS: Anisocytosis Slight; Basophils # (A) 0.1 k/uL (0-0.2); Basophils % (A) 0 %; Eosinophils # (A) 0.2 k/uL (0-0.7); Eosinophils % (A) 1 %; HCT 36.2 % (34.0-46.0); HGB 11.4 gm/dL (11.4-16.0); Hypochromasia Moderate; Lymphocytes # (A) 3.9 k/uL (1.0-4.8); Lymphocytes % (A) 26 %; MCHC 31.4 g/dL (31.0-37.0); MCV 92.1 fL (80.0-100.0); Mean Platelet Volume 10.1; Monocytes # (A) 0.6 k/uL (0-1.0); Monocytes % (A) 4 %; Neutrophils % (A) 67 %; Platelet Count 227 k/uL (150-450); RBC 3.93 m/uL (3.80-5.40); RDW 18.4 % (11.5-15.5); WBC 14.9 k/uL (3.8-10.6)
--- NOTE | 2024-03-26 01:29 | XR ---
EXAM: XR Chest, 2 Views CLINICAL HISTORY: ITS.REASON XR Reason: Chest Pain TECHNIQUE: Frontal and lateral views of the chest. COMPARISON: No relevant prior studies available. FINDINGS: Lungs: No consolidation or mass. Pleural space: No effusion. Heart: No cardiomegaly. Bones/joints: No acute findings. IMPRESSION: No acute cardiopulmonary process.
[2024-03-26] MEDS ORDERED: NITROGLYCERIN SL TABS 0.4 MG TAB SUBLINGUAL PRN (01:42)
[2024-03-26] MEDS: ACETAMINOPHEN TAB 500 MG TAB PO STA (01:52)
[2024-03-26] MEDS: ASPIRIN 81 MG PO STA (01:53)
[2024-03-26] MEDS: ONDANSETRON 4 MG/2 ML VIAL IVP STA (01:55)
[2024-03-27] MEDS ORDERED: ASPIRIN 325 MG TAB PO SCH (09:00)
== END 2024-03-26 03:02 | disposition left against medical advice (07) ==
LOC: EC 21:44 → 6NMEDSUR 03-26 01:42
PROVIDERS: ADMIT Family Medicine; ATTEND Family Medicine
DX: R07.89 Other chest pain (principal); R07.2 Precordial pain; Z53.21 Procedure and treatment not carried out due to patient leaving prior to being seen by health care provider; I26.99 Other pulmonary embolism without acute cor pulmonale; Z79.01 Long term (current) use of anticoagulants; Z79.899 Other long term (current) drug therapy; Z91.040 Latex allergy status; Z88.5 Allergy status to narcotic agent; Z98.84 Bariatric surgery status; Z87.891 Personal history of nicotine dependence
CPT/HCPCS: 96374; 99285; 36415; 93005; 80053; 83735; 84484; 85025; 85610; 85730; 84702; 71046; G0378; J2405

== ENCOUNTER 2024-04-03 21:34 | Observation (INO) | payer OTHER ==
[2024-04-03 23:25] LABS: Anisocytosis Slight; Basophils % (A) 0 %; Eosinophils # (A) 0.1 k/uL (0-0.7); Eosinophils % (A) 1 %; HCT 33.9 % (34.0-46.0); HGB 10.6 gm/dL (11.4-16.0); Hypochromasia Marked; Lymphocytes % (A) 19 %; MCHC 31.2 g/dL (31.0-37.0); Mean Platelet Volume 8.1; Monocytes # (A) 0.3 k/uL (0-1.0); Monocytes % (A) 3 %; Neutrophils # (A) 8.1 k/uL (1.3-7.7); Neutrophils % (A) 76 %; RBC 3.77 m/uL (3.80-5.40); RDW 17.2 % (11.5-15.5); WBC 10.7 k/uL (3.8-10.6)
[2024-04-03] MEDS: SODIUM CHLORIDE 0.9% 1,000 ML IV STA (23:25)
[2024-04-03] MEDS: HYDROmorphone 1 MG/ML 1 ML SYRINGE IVP STA (23:25)
[2024-04-03] MEDS: ONDANSETRON 4 MG/2 ML VIAL IVP STA (23:25)
[2024-04-03 23:30] LABS: Platelet Count 489 k/uL (150-450)
--- NOTE | 2024-04-03 23:36 | ED ---
Abdominal Pain HPI - General Chief Complaint: Abdominal Pain Stated Complaint: Abd Pain,Vomiting Time Seen by Provider: 04/03/24 22:25 Source: patient Mode of arrival: ambulatory Limitations: no limitations - History of Present Illness Initial Comments: 33-year-old female presenting with chief complaint of epigastric pain nausea and vomiting. Patient had gastric sleeve surgery with Dr. Liu in December 2023. He was also previously diagnosed with an ulcer she has had recurrent episodes of epigastric pain nausea and vomiting. She has previously been admitted to hospital for dilation of her gastric sleeve. This episode of pain started today. States that vomiting makes her pain worse. She denies any fevers or symptoms. Admits to diarrhea, states that this is quite common for her. States that she is on a clear liquid diet. No chest pain or difficulty breathing. - Related Data Home Medications Medication Instructions Recorded Confirmed Asenapine [Saphris] 5 mg SUBLINGUAL HS 03/08/24 04/04/24 Enoxaparin [Lovenox] 105 mg SQ Q12H 03/08/24 04/04/24 Ferrous Sulfate [Feosol] 325 mg PO DAILY 04/04/24 04/04/24 LORazepam [Ativan] 0.5 mg PO BID PRN 04/04/24 04/04/24 Omeprazole [PriLOSEC] 20 mg PO AC-BID 04/04/24 04/04/24 Ondansetron Odt [Zofran Odt] 4 mg PO BID PRN 04/04/24 04/04/24 Potassium Chloride [Klor-Con M10] 10 meq PO DAILY 04/04/24 04/04/24 Sucralfate [Carafate] 1 gm PO ACHS 04/04/24 04/04/24 Allergies Allergy/AdvReac Type Severity Reaction Status Date / Time latex Allergy Rash/Hives Verified 04/04/24 07:01 morphine AdvReac Itching Verified 04/04/24 07:01 Review of Systems ROS Statement: Those systems with pertinent positive or pertinent negative responses have been documented in the HPI. ROS Other: All systems not noted in ROS Statement are negative. Past Medical History Past Medical History: GERD/Reflux, Sleep Apnea/CPAP/BIPAP Additional Past Medical History / Comment(s): iron defiency anemia, currently getting iron infusions, no cpap used, pulmonary embolism 02/13/24 History of Any Multi-Drug Resistant Organisms: None Reported Past Surgical History: Bariatric Surgery, Section, Cholecystectomy, Tubal Ligation, Uterine Ablation Additional Past Surgical History / Comment(s): 2008 AND 2015 (c/s) and 2010 (cholecyst). 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 Past Anesthesia/Blood Transfusion Reactions: No Reported Reaction Past Psychological History: Anxiety, Bipolar, Depression Smoking Status: Former smoker Past Alcohol Use History: None Reported Past Drug Use History: None Reported - Past Family History Mother Family Medical History: Asthma, COPD, Diabetes Mellitus, Hypertension Additional Family Medical History / Comment(s): depression, anxiety, sleep apnea, Father Family Medical History: Hypertension Additional Family Medical History / Comment(s): arthritis General Exam Limitations: no limitations General appearance: alert, in no apparent distress Head exam: Present: atraumatic, normocephalic Eye exam: Present: normal appearance, EOMI Neck exam: Present: normal inspection. Absent: meningismus Respiratory exam: Present: normal lung sounds bilaterally. Absent: respiratory distress, wheezes, rales, rhonchi, stridor Cardiovascular Exam: Present: regular rate, normal rhythm, normal heart sounds. Absent: systolic murmur, diastolic murmur, rubs, gallop, clicks GI/Abdominal exam: Present: soft, tenderness. Absent: distended, guarding, rebound, rigid Neurological exam: Present: alert, oriented X3 Psychiatric exam: Present: normal affect, normal mood Skin exam: Present: warm, dry Course Vital Signs 04/03/24 04/03/24 04/04/24 21:53 23:29 01:00 Temperature 98.2 F Pulse Rate 96 91 90 Pulse Rate [ Pulse Oximetery ] Respiratory 18 20 18 Rate Blood Pressure 133/88 142/90 126/78 Blood Pressure [Left Arm] O2 Sat by Pulse 95 98 98 Oximetry 04/04/24 04/04/24 05:17 07:00 Temperature 98.1 F Pulse Rate 88 Pulse Rate [ 81 Pulse Oximetery ] Respiratory 20 18 Rate Blood Pressure 139/76 Blood Pressure 124/78 [Left Arm] O2 Sat by Pulse 98 98 Oximetry Medical Decision Making - Medical Decision Making 33-year-old presenting with chief complaint epigastric pain nausea and vomiting. Has had ongoing issues since her gastric sleeve surgery back in December. WBC 10.7 hemoglobin 10.6. Negative troponin. hCG is negative. Low total protein and albumin, likely due to malnutrition. Urine shows 3+ ketones, consistent with dehydration. Patient is receiving IV fluids as well as pain and nausea medication. On reassessment she reports that her pain did improve but is coming back. Patient does not feel comfortable with discharge and is requesting admission. Was pt. sent in by a medical professional or institution (, PA, SUCTION OPERATOR, urgent care, hospital, or fci...) When possible be specific @ -No Did you speak to anyone other than the patient for history (EMS, parent, family, police, friend...)? What history was obtained from this source @ -No Did you review nursing and triage notes (agree or disagree)? Why? @ -I reviewed and agree with nursing and triage notes Were old charts reviewed (outside hosp., previous admission, EMS record, old EKG, old radiological studies, urgent care reports/EKG's, fci records)? Report findings @ -Previous visits reviewed Differential Diagnosis (chest pain, altered mental status, abdominal pain women, abdominal pain men, vaginal bleeding, weakness, fever, dyspnea, syncope, headache, dizziness, GI bleed, back pain, seizure, CVA, palpatations, mental health, musculoskeletal)? @ -MDM Differential Abdominal Pain Women: Appendicitis, Cholecystitis, diverticulosis, ischemic bowel, pancreatitis, hepatitis, UTI, gastroenteritis, AAA, incarcerated hernia, bowel obstruction, constipation, inflammatory bowel, hepatitis, peptic ulcer disease, splenic infarction, perforated viscus, vulvitis, ovarian torsion, PID, kidney stone, placenta abruption... This is not meant to be an all-inclusive list EKG interpreted by me (3pts min.). @ -As above X-rays interpreted by me (1pt min.). @ -None done CT interpreted by me (1pt min.). @ -None done U/S interpreted by me (1pt. min.). @ -None done What testing was considered but not performed or refused? (CT, X-rays, U/S, labs)? Why? @ -None What meds were considered but not given or refused? Why? @ -None Did you discuss the management of the patient with other professionals (professionals i.e. , PA, SUCTION OPERATOR, lab, RT, psych nurse, social service manager, associate director finance, teacher, aoc aadc operations staff officer, social work case manager)? Give summary @ -No Was smoking cessation discussed for >3mins.? @ -No Was critical care preformed (if so, how long)? @ -No Were there social determinants of health that impacted care today? How? (Homelessness, low income, unemployed, alcoholism, drug addiction, transportation, low edu. Level, literacy, decrease access to med. care, shelter, rehab)? @ -No Was there de-escalation of care discussed even if they declined (Discuss DNR or withdrawal of care, Hospice)? DNR status @ -No What co-morbidities impacted this encounter? (DM, HTN, Smoking, COPD, CAD, Cancer, CVA, ARF, Chemo, Hep., AIDS, mental health diagnosis, sleep apnea, morbid obesity)? @ -None Was patient admitted / discharged? Hospital course, mention meds given and route, prescriptions, significant lab abnormalities, going to OR and other pertinent info. @ -Admitted, see above for details Undiagnosed new problem with uncertain prognosis? @ -No Drug Therapy requiring intensive monitoring for toxicity (Heparin, Nitro, Insulin, Cardizem)? @ -No Were any procedures done? @ -No Diagnosis/symptom? @ -Intractable abdominal pain, intractable nausea vomiting, status post gastric sleeve Acute, or Chronic, or Acute on Chronic? @ -Acute Uncomplicated (without systemic symptoms) or Complicated (systemic symptoms)? @ -Complicated Side effects of treatment? @ -No Exacerbation, Progression, or Severe Exacerbation? @ -No Poses a threat to life or bodily function? How? (Chest pain, USA, CT, pneumonia, PE, COPD, DKA, ARF, appy, cholecystitis, CVA, Diverticulitis, Homicidal, Suicidal, threat to staff... and all critical care pts) @ -Yes - Lab Data Result diagrams: 04/03/24 23:10 04/03/24 23:10 Lab Results 04/03/24 04/03/24 04/03/24 Range/Units 23:10 23:10 23:10 WBC 10.7 H (3.8-10.6) k/uL RBC 3.77 L (3.80-5.40) m/uL Hgb 10.6 L (11.4-16.0) gm/dL Hct 33.9 L (34.0-46.0) % MCV 90.0 (80.0-100.0) fL MCH 28.0 (25.0-35.0) pg MCHC 31.2 (31.0-37.0) g/dL RDW 17.2 H (11.5-15.5) % Plt Count 489 H D (150-450) k/uL MPV 8.1 Neutrophils % 76 % Lymphocytes % 19 % Monocytes % 3 % Eosinophils % 1 % Basophils % 0 % Neutrophils # 8.1 H (1.3-7.7) k/uL Lymphocytes # 2.0 (1.0-4.8) k/uL Monocytes # 0.3 (0-1.0) k/uL Eosinophils # 0.1 (0-0.7) k/uL Basophils # 0.0 (0-0.2) k/uL Hypochromasia Marked Anisocytosis Slight Sodium 138 (137-145) mmol/L Potassium 4.9 (3.5-5.1) mmol/L Chloride 109 H (98-107) mmol/L Carbon Dioxide 21 L (22-30) mmol/L Anion Gap 8 mmol/L BUN 3 L (7-17) mg/dL Creatinine 0.47 L (0.52-1.04) mg/dL Est GFR (CKD-EPI)AfAm >90 (>60 ml/min/1.73 sqM) Est GFR (CKD-EPI)NonAf >90 (>60 ml/min/1.73 sqM) Glucose 73 L (74-99) mg/dL Plasma Lactic Acid Case 0.7 (0.7-2.0) mmol/L Calcium 8.7 (8.4-10.2) mg/dL Total Bilirubin 0.6 (0.2-1.3) mg/dL AST 46 H (14-36) U/L ALT 30 (4-34) U/L Alkaline Phosphatase 66 (38-126) U/L Troponin I (0.000-0.034) ng/mL Total Protein 6.2 L (6.3-8.2) g/dL Albumin 3.2 L (3.5-5.0) g/dL Amylase 43 (30-110) U/L Lipase 58 (23-300) U/L HCG, Qual Not Detected 04/03/24 Range/Units 23:10 WBC (3.8-10.6) k/uL RBC (3.80-5.40) m/uL Hgb (11.4-16.0) gm/dL Hct (34.0-46.0) % MCV (80.0-100.0) fL MCH (25.0-35.0) pg MCHC (31.0-37.0) g/dL RDW (11.5-15.5) % Plt Count (150-450) k/uL MPV Neutrophils % % Lymphocytes % % Monocytes % % Eosinophils % % Basophils % % Neutrophils # (1.3-7.7) k/uL Lymphocytes # (1.0-4.8) k/uL Monocytes # (0-1.0) k/uL Eosinophils # (0-0.7) k/uL Basophils # (0-0.2) k/uL Hypochromasia Anisocytosis Sodium (137-145) mmol/L Potassium (3.5-5.1) mmol/L Chloride (98-107) mmol/L Carbon Dioxide (22-30) mmol/L Anion Gap mmol/L BUN (7-17) mg/dL Creatinine (0.52-1.04) mg/dL Est GFR (CKD-EPI)AfAm (>60 ml/min/1.73 sqM) Est GFR (CKD-EPI)NonAf (>60 ml/min/1.73 sqM) Glucose (74-99) mg/dL Plasma Lactic Acid Case (0.7-2.0) mmol/L Calcium (8.4-10.2) mg/dL Total Bilirubin (0.2-1.3) mg/dL AST (14-36) U/L ALT (4-34) U/L Alkaline Phosphatase (38-126) U/L Troponin I <0.012 (0.000-0.034) ng/mL Total Protein (6.3-8.2) g/dL Albumin (3.5-5.0) g/dL Amylase (30-110) U/L Lipase (23-300) U/L HCG, Qual Disposition Clinical Impression: S/P gastric sleeve procedure, Intractable abdominal pain, Intractable nausea and vomiting Disposition: ADMITTED IP TO [facility] Condition: Fair
[2024-04-03 23:38] LABS: Anion Gap 8 mmol/L; Blood Urea Nitrogen 3 mg/dL (7-17); Carbon Dioxide 21 mmol/L (22-30); Chloride 109 mmol/L (98-107); Glucose 73 mg/dL (74-99); Sodium 138 mmol/L (137-145)
[2024-04-03 23:39] LABS: ALT 30 U/L (4-34); African American GFR (CKD) >90 (>60 ml/min/1.73 sqM); Amylase 43 U/L (30-110); Calcium 8.7 mg/dL (8.4-10.2); Lipase 58 U/L (23-300); Non-African American GFR(CKD) >90 (>60 ml/min/1.73 sqM); Total Bilirubin 0.6 mg/dL (0.2-1.3)
[2024-04-04 00:17] LABS: AST 46 U/L (14-36); Albumin 3.2 g/dL (3.5-5.0); Alkaline Phosphatase 66 U/L (38-126); Potassium 4.9 mmol/L (3.5-5.1); Total Protein 6.2 g/dL (6.3-8.2)
[2024-04-04 01:37] LABS: HCG,Qualitative Serum Not Detected
[2024-04-04] MEDS ORDERED: NALOXONE 0.4 MG/ML 1 ML VIAL IV PRN (02:03)
[2024-04-04] MEDS: KETOROLAC 15 MG/ML 1 ML VIAL IVP STA (02:18)
[2024-04-04] MEDS: SODIUM CHLORIDE 0.9% 1,000 ML IV SCH (02:18)
[2024-04-04] MEDS: HYDROmorphone 1 MG/ML 1 ML SYRINGE IVP PRN (02:27)
[2024-04-04] MEDS: hydrOXYzine HCL 25 MG TAB PO STA (02:27)
[2024-04-04 03:15] LABS: Amorphous Sediment,Urine Rare /hpf; Appearance,Urine Cloudy (Clear); Bilirubin,Urine Negative (Negative); Blood,Urine Small (Negative); Color,Urine Yellow; Glucose,Urine (UA) Negative (Negative); Hyaline Casts,Urine 61 /lpf (0-2); Ketones,Urine 3+ (Negative); Leukocyte Esterase,Urine Trace (Negative); Mucus,Urine Many /hpf; Nitrite,Urine Negative (Negative); Protein,Urine Trace (Negative); RBC,Urine 4 /hpf (0-5); Specific Gravity,Urine 1.019 (1.001-1.035); Squamous Epithelial Cell,Urine 1 /hpf (0-4); Urobilinogen,Urine <2.0 mg/dL (<2.0); WBC,Urine 8 /hpf (0-5)
[2024-04-04] MEDS: ONDANSETRON 4 MG/2 ML VIAL IVP PRN (08:23)
[2024-04-04] MEDS ORDERED: ONDANSETRON ODT 4 MG TAB PO PRN (09:09)
[2024-04-04] MEDS ORDERED: LORazepam 2 MG/ML INJ IV PRN (09:17)
[2024-04-04] MEDS: ENOXAPARIN 120 MG/0.8 ML SYRINGE SQ SCH (09:54)
[2024-04-04] MEDS: LORazepam 0.5 MG TAB PO PRN (09:54)
--- NOTE | 2024-04-04 11:24 | P.GSCN ---
History of Present Illness Consult date: 04/04/24 History of present illness: CHIEF COMPLAINT: abdominal pain HISTORY OF PRESENT ILLNESS: This is a 33-year-old female with a history of sleeve gastrectomy in December 2023. Patient had a recent EGD with dilation with reported ulcer 2 weeks ago with the GI team at [facility]. Patient reports she had been doing well she is actually able to tolerate soft foods. Yesterday she started having vomiting and difficulty with swallowing. She came into the ER for evaluation. Patient also complains of epigastric abdominal pain. Patient has been following with the surgical team at [facility] and they have discussed this possible revision of her sleeve in a few months. Patient also has a past surgical history of cholecystectomy and has a history of pulmonary embolism and is on Lovenox. Surgical service has been consulted for abdominal pain. Patient had been on TPN for nutrition support. But since the dilation she has been off of TPN PAST MEDICAL HISTORY: GERD/Reflux, Sleep Apnea/CPAP/BIPAP, iron defiency anemia, currently getting iron infusions, no cpap used, pulmonary embolism 02/13/24, Anxiety, Bipolar, Depression PAST SURGICAL HISTORY: Bariatric Surgery, Section, Cholecystectomy, Tubal Ligation, Uterine Ablation, 2008 AND 2015 (c/s) and 2010 (cholecyst). 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 MEDICATIONS: See below ALLERGIES: See below SOCIAL HISTORY: No illicit drug use. REVIEW OF SYSTEMS: CONSTITUTIONAL: Denies fever or chills. HEENT: Denies blurred vision, vision changes, or eye pain. Denies hemoptysis CARDIOVASCULAR: Denies chest pain or pressure. RESPIRATORY: No shortness of breath. GASTROINTESTINAL: See HPI for pertinent findings HEMATOLOGIC: Denies bleeding disorders. GENITOURINARY: Denies any blood in urine or increased urinary frequency. SKIN: Denies pruitis. Denies rash. PHYSICAL EXAM: VITAL SIGNS: Reviewed GENERAL: Well-developed in no acute distress. ABDOMEN: Soft. Nondistended. Mild epigastric tenderness with palpation NEUROLOGIC: Alert and oriented. Cranial nerves II through XII grossly intact. LABORATORY DATA: WBC 10.7 hgb 10.6 plt 489 Na 138 K 4.9 cr 0.47 Lactic acid 0.7 IMAGING: ASSESSMENT: 1. Dysphagia 2. Nausea and vomiting and epigastric abdominal pain 3. Recent EGD with dilation about 2 weeks ago 4. History of sleeve gastrectomy in December 2023 6. Gastric ulcer PLAN: -Patient scheduled for EGD with dilation tomorrow with Dr. Liu -Hold Lovenox in a.m. -Clear liquid diet today. N.p.o. after midnight -Change Protonix to 40 IV daily Physician Premium Card Cancellation Clerk note has been reviewed by physician. Signing provider agrees with the documented findings, assessment, and plan of care. Past Medical History Past Medical History: GERD/Reflux, Sleep Apnea/CPAP/BIPAP Additional Past Medical History / Comment(s): iron defiency anemia, currently getting iron infusions, no cpap used, pulmonary embolism 02/13/24 History of Any Multi-Drug Resistant Organisms: None Reported Past Surgical History: Bariatric Surgery, Section, Cholecystectomy, Tubal Ligation, Uterine Ablation Additional Past Surgical History / Comment(s): 2008 AND 2015 (c/s) and 2010 (cholecyst). 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 Past Anesthesia/Blood Transfusion Reactions: No Reported Reaction Past Psychological History: Anxiety, Bipolar, Depression Smoking Status: Former smoker Past Alcohol Use History: None Reported Past Drug Use History: None Reported - Past Family History Mother Family Medical History: Asthma, COPD, Diabetes Mellitus, Hypertension Additional Family Medical History / Comment(s): depression, anxiety, sleep apnea, Father Family Medical History: Hypertension Additional Family Medical History / Comment(s): arthritis Medications and Allergies Home Medications Medication Instructions Recorded Confirmed Type Asenapine [Saphris] 5 mg SUBLINGUAL HS 03/08/24 04/04/24 History Enoxaparin [Lovenox] 105 mg SQ Q12H 03/08/24 04/04/24 History Ferrous Sulfate [Feosol] 325 mg PO DAILY 04/04/24 04/04/24 History LORazepam [Ativan] 0.5 mg PO BID PRN 04/04/24 04/04/24 History Omeprazole [PriLOSEC] 20 mg PO AC-BID 04/04/24 04/04/24 History Ondansetron Odt [Zofran Odt] 4 mg PO BID PRN 04/04/24 04/04/24 History Potassium Chloride [Klor-Con M10] 10 meq PO DAILY 04/04/24 04/04/24 History Sucralfate [Carafate] 1 gm PO ACHS 04/04/24 04/04/24 History Allergies Allergy/AdvReac Type Severity Reaction Status Date / Time latex Allergy Rash/Hives Verified 04/04/24 07:01 morphine AdvReac Itching Verified 04/04/24 07:01 Surgical - Exam Vital Signs Temp Pulse Resp BP Pulse Ox 98.2 F 96 18 133/88 95 04/03/24 21:53 04/03/24 21:53 04/03/24 21:53 04/03/24 21:53 04/03/24 21:53 Results - Labs 04/03/24 23:10 04/03/24 23:10 Abnormal Lab Results - Last 24 Hours (Table) 04/03/24 04/03/24 04/04/24 Range/Units 23:10 23:10 02:23 WBC 10.7 H (3.8-10.6) k/uL RBC 3.77 L (3.80-5.40) m/uL Hgb 10.6 L (11.4-16.0) gm/dL Hct 33.9 L (34.0-46.0) % RDW 17.2 H (11.5-15.5) % Plt Count 489 H D (150-450) k/uL Neutrophils # 8.1 H (1.3-7.7) k/uL Chloride 109 H (98-107) mmol/L Carbon Dioxide 21 L (22-30) mmol/L BUN 3 L (7-17) mg/dL Creatinine 0.47 L (0.52-1.04) mg/dL Glucose 73 L (74-99) mg/dL AST 46 H (14-36) U/L Total Protein 6.2 L (6.3-8.2) g/dL Albumin 3.2 L (3.5-5.0) g/dL Urine Appearance Cloudy H (Clear) Urine Protein Trace H (Negative) Urine Ketones 3+ H (Negative) Urine Blood Small H (Negative) Ur Leukocyte Esterase Trace H (Negative) Urine WBC 8 H (0-5) /hpf Amorphous Sediment Rare H (None) /hpf Hyaline Casts 61 H (0-2) /lpf Urine Mucus Many H (None) /hpf Diabetes panel 04/03/24 Range/Units 23:10 Sodium 138 (137-145) mmol/L Potassium 4.9 (3.5-5.1) mmol/L Chloride 109 H (98-107) mmol/L Carbon Dioxide 21 L (22-30) mmol/L BUN 3 L (7-17) mg/dL Creatinine 0.47 L (0.52-1.04) mg/dL Glucose 73 L (74-99) mg/dL Calcium 8.7 (8.4-10.2) mg/dL AST 46 H (14-36) U/L ALT 30 (4-34) U/L Alkaline Phosphatase 66 (38-126) U/L Total Protein 6.2 L (6.3-8.2) g/dL Albumin 3.2 L (3.5-5.0) g/dL Calcium panel 04/03/24 Range/Units 23:10 Calcium 8.7 (8.4-10.2) mg/dL Albumin 3.2 L (3.5-5.0) g/dL Pituitary panel 04/03/24 Range/Units 23:10 Sodium 138 (137-145) mmol/L Potassium 4.9 (3.5-5.1) mmol/L Chloride 109 H (98-107) mmol/L Carbon Dioxide 21 L (22-30) mmol/L BUN 3 L (7-17) mg/dL Creatinine 0.47 L (0.52-1.04) mg/dL Glucose 73 L (74-99) mg/dL Calcium 8.7 (8.4-10.2) mg/dL Adrenal panel 04/03/24 Range/Units 23:10 Sodium 138 (137-145) mmol/L Potassium 4.9 (3.5-5.1) mmol/L Chloride 109 H (98-107) mmol/L Carbon Dioxide 21 L (22-30) mmol/L BUN 3 L (7-17) mg/dL Creatinine 0.47 L (0.52-1.04) mg/dL Glucose 73 L (74-99) mg/dL Calcium 8.7 (8.4-10.2) mg/dL Total Bilirubin 0.6 (0.2-1.3) mg/dL AST 46 H (14-36) U/L ALT 30 (4-34) U/L Alkaline Phosphatase 66 (38-126) U/L Total Protein 6.2 L (6.3-8.2) g/dL Albumin 3.2 L (3.5-5.0) g/dL
[2024-04-04] MEDS: PANTOPRAZOLE 40 MG/10 ML VIAL IVP SCH (11:47)
[2024-04-04] MEDS: SUCRALFATE 1 GM TAB PO SCH (11:47)
[2024-04-04 13:03] VITALS: BMI 42.0
--- NOTE | 2024-04-04 14:12 | HP ---
HISTORY AND PHYSICAL HISTORY OF PRESENT ILLNESS: Geneva Chavez is admitted in to the hospital for acute on chronic abdominal pain, nausea and vomiting, status post Damon surgery with esophageal dilation x1 about a week ago, still unable to keep any food and liquids down, so she left the other hospital with no relief from them. Surgery of [facility] Cabrera saw her a few months ago. She has a past surgical history of cholecystectomy, pulmonary embolism, on Lovenox, status post Damon procedure. She has nausea and vomiting. She had been on TPN for nutritional support, has been off TPN since the last dilation, but still was unable to keep food and liquids down. MEDICAL HISTORY: Sleep apnea, GERD, iron deficiency anemia, history of pulmonary embolism, depression, bipolar, anxiety. SURGICAL HISTORY: Cataract, bariatric surgery, , cholecystectomy, tubal ligation, uterine ablation. SOCIAL HISTORY: Negative. REVIEW OF SYSTEMS: A 14-point review of systems as mentioned above. PHYSICAL EXAMINATION: VITAL SIGNS: Stable, afebrile. CARDIOVASCULAR: S1, S2. LUNGS: Transmitted upper sounds. GI: Soft. HEMATOLOGY: Negative for Homans. NEUROLOGIC: Cranial nerves intact. ENDOCRINE: BMI is over 40. ABDOMEN: Abdomen distended, normal bowel sounds. No guarding. She has dysphagia nausea vomiting dehydration, status post Damon procedure, status post esophageal dilation, history of pulmonary embolism, status post Damon procedure, history of asthma, COPD, history of gastric ulcers, sleeve gastrectomy December 2023, EGD with dilation tomorrow with Alexa. Hold Lovenox in the morning. Clear liquid diet. Start breathing treatments. Protonix IV. Prognosis guarded. Please see further orders. MMODL / IJN: [id number] /
[2024-04-04] MEDS: IPRATROPIUM-ALBUTEROL 3 ML NEB INHALATION SCH (16:31)
[2024-04-04] MEDS: ASENAPINE 5 MG TAB SUBLINGUAL SCH (21:54)
[2024-04-04] MEDS: traZODone HCL 50 MG TAB PO SCH (21:54)
[2024-04-04] MEDS: ZOLPIDEM 5 MG TAB PO SCH (21:54)
[2024-04-05 04:16] LABS: Anisocytosis Slight; Basophils % (A) 1 %; Eosinophils # (A) 0.2 k/uL (0-0.7); Eosinophils % (A) 2 %; HCT 30.8 % (34.0-46.0); HGB 9.3 gm/dL (11.4-16.0); Hypochromasia Marked; Lymphocytes # (A) 2.4 k/uL (1.0-4.8); Lymphocytes % (A) 29 %; MCH 27.8 pg (25.0-35.0); MCHC 30.3 g/dL (31.0-37.0); MCV 91.6 fL (80.0-100.0); Mean Platelet Volume 7.9; Monocytes # (A) 0.4 k/uL (0-1.0); Monocytes % (A) 5 %; Neutrophils # (A) 5.2 k/uL (1.3-7.7); Neutrophils % (A) 62 %; Platelet Count 486 k/uL (150-450); RBC 3.37 m/uL (3.80-5.40); RDW 17.5 % (11.5-15.5); WBC 8.4 k/uL (3.8-10.6)
[2024-04-05 04:25] LABS: ALT 18 U/L (4-34); AST 21 U/L (14-36); African American GFR (CKD) >90 (>60 ml/min/1.73 sqM); Albumin 2.4 g/dL (3.5-5.0); Albumin/Globulin Ratio 0.9; Alkaline Phosphatase 58 U/L (38-126); Anion Gap 6 mmol/L; Blood Urea Nitrogen <2 mg/dL (7-17); Calcium 8.6 mg/dL (8.4-10.2); Carbon Dioxide 23 mmol/L (22-30); Chloride 110 mmol/L (98-107); Globulin 2.7 g/dL; Glucose 76 mg/dL (74-99); Non-African American GFR(CKD) >90 (>60 ml/min/1.73 sqM); Potassium 3.6 mmol/L (3.5-5.1); Sodium 139 mmol/L (137-145); Total Bilirubin 0.2 mg/dL (0.2-1.3); Total Protein 5.1 g/dL (6.3-8.2)
[2024-04-05] MEDS ORDERED: PANTOPRAZOLE 40 MG TABLET PO SCH (07:30)
[2024-04-05] MEDS: IV FLUID CONTINUATION 1,000 ML IV ONE (10:49)
[2024-04-05] MEDS ORDERED: LIDOCAINE 1% INJ 10MG/ML (20 ML MDV) ONE (10:50)
[2024-04-05] MEDS ORDERED: PROPOFOL 10 MG/ML 20 ML VIAL IV ONE (10:50)
--- NOTE | 2024-04-05 11:10 | P.OP ---
Date of Procedure: 04/05/24 Preoperative Diagnosis: Abdominal pain, dysphagia Postoperative Diagnosis: Mild gerd No obvious sleeve stricture Procedure(s) Performed: EGD with dilation Anesthesia: MAC Surgeon: Rogelio Liu Pathology: none sent Condition: stable Disposition: PACU Description of Procedure: The patient was placed on the table in the lateral position. She received IV sedation. The Gastroflux oropharynx passed in the esophagus and the stomach. The patient previous gastric sleeve. The gas was easily passed into the pylorus and through the into the first and second part of the duodenum. The scope was brought back. The gastric sleeve was examined. There is no obvious ulceration or stricture of the gastric sleeve. At this point the 20 mm balloon was placed along the gastric sleeve. And the balloon was easily passed. There is no obvious obstruction or stricture of the gastric sleeve. The GE junction was at 40 cm. The distal esophagus. Minimal Flaim. The proximal esophagus appeared normal. Scope withdrawn for the patient.
[2024-04-05] MEDS: FERROUS SULFATE 325 MG TAB PO SCH (12:11)
[2024-04-05] MEDS: LACTATED RINGERS 1,000 ML IV SCH (12:13)
--- NOTE | 2024-04-05 14:11 | P.PN ---
Subjective Progress Note Date: 04/05/24 CHIEF COMPLAINT: Dysphagia HISTORY OF PRESENT ILLNESS: Patient status post EGD with dilation that reported mild GERD and no obvious sleeve stricture. Patient's diet has been advanced to full liquids. Vital stable. WBC 8.4 Hgb 9.3 platelets 486 Patient seen and examined with Dr. Liu PHYSICAL EXAM: VITAL SIGNS: Reviewed. GENERAL: Well-developed in no acute distress. ABDOMEN: Soft. Nondistended. Nontender. ASSESSMENT: 1. Dysphagia status post EGD with dilation and no evidence of sleeve stricture. Mild GERD reported. 2. Nausea and vomiting and epigastric abdominal pain 3. Recent EGD with dilation about 2 weeks ago 4. History of sleeve gastrectomy in December 2023 6. History of Gastric ulcer on last EGD PLAN: -Continue PPI and Carafate -Advance diet to full liquids -Patient can be discharged from surgical standpoint if tolerating diet Physician Store Manager note has been reviewed by physician. Signing provider agrees with the documented findings, assessment, and plan of care. Objective - Vital Signs Vital signs: Vital Signs Temp 98.1 F 04/05/24 13:45 Pulse 94 04/05/24 13:45 Resp 16 04/05/24 13:45 BP 132/83 04/05/24 13:45 Pulse Ox 98 04/05/24 13:45 FiO2 Intake & Output 04/04/24 04/05/24 04/05/24 18:59 06:59 18:59 Intake Total 20 50 Balance 20 50 Weight 104.326 kg Intake: IV 50 Oral 20 Other: Voiding Method Toilet # Voids 2 1 1 - Labs CBC & Chem 7: 04/05/24 03:31 04/05/24 03:31 Labs: Abnormal Lab Results - Last 24 Hours (Table) 04/05/24 04/05/24 Range/Units 03:31 03:31 RBC 3.37 L (3.80-5.40) m/uL Hgb 9.3 L (11.4-16.0) gm/dL Hct 30.8 L (34.0-46.0) % MCHC 30.3 L (31.0-37.0) g/dL RDW 17.5 H (11.5-15.5) % Plt Count 486 H (150-450) k/uL Chloride 110 H (98-107) mmol/L BUN <2 L (7-17) mg/dL Creatinine 0.44 L (0.52-1.04) mg/dL Total Protein 5.1 L (6.3-8.2) g/dL Albumin 2.4 L (3.5-5.0) g/dL
[2024-04-05] MEDS: POTASSIUM CHLORIDE ER 10 MEQ TAB.ER.PRT PO SCH (16:04)
[2024-04-06] MEDS: KETOROLAC 15 MG/ML 1 ML VIAL IVP PRN (06:43)
[2024-04-06 14:29] VITALS: BP 132/81; PULSE 86; RESP 17; TEMP 98.7
--- NOTE | 2024-04-06 16:13 | P.PN ---
Subjective Progress Note Date: 04/06/24 CHIEF COMPLAINT: Abdominal pain HISTORY OF PRESENT ILLNESS: The patient is a 33-year-old female with complicated history of sleeve gastrectomy. She had upper endoscopy. Patient resting comfortably. Per discussion with nurse, patient is requesting scheduled Dilaudid. Otherwise she denies any acute abdominal pain. She is tolerating liquids. ROS: No fevers or chills. No new chest pain. PHYSICAL EXAM: VITAL SIGNS: Reviewed CONSTITUTIONAL: Well developed and in no acute distress. EYES: Conjuctivae without sclera icterus. Extraocular movements grossly intact. HEAD, EARS, NOSE, THROAT: Moist buccal mucosa. Head is atraumatic, normocephalic. Hears conversational speech. No nasal drainage. RESPIRATORY: Non-labored respirations and equal bilateral excursions. CARDIOVASCULAR: Palpable 2+ radial pulses. ABDOMEN: Obese. MUSCULOSKELETAL: No gross deformity of the lower extremities noted. No clubbing. No cyanosis. SKIN: Good skin turgor. Well perfused. NEUROLOGIC: Cranial nerves II through XII grossly intact. No focal or lateralizing signs. PSYCH: Appropriate affect. Alert and oriented to person, place and time. CLINICAL LABS: Reviewed. WBC normal. REPORTS: Upper endoscopy demonstrates no stricture of sleeve gastrectomy ASSESSMENT: 1. Abdominal pain 2. Morbid obesity due to excess calories, BMI 42.1 3. Status post sleeve gastrectomy PLAN: 1. Patient is tolerating diet and stable for discharge. Objective - Vital Signs Vital signs: Vital Signs Temp 98.7 F 04/06/24 14:27 Pulse 86 04/06/24 14:27 Resp 17 04/06/24 14:27 BP 132/81 04/06/24 14:27 Pulse Ox 95 04/06/24 14:27 FiO2 Intake & Output 04/05/24 04/06/24 04/06/24 18:59 06:59 18:59 Intake Total 168 118 Balance 168 118 Weight 104.326 kg Intake: IV 50 Oral 118 118 Other: # Voids 1 2 2 - Labs CBC & Chem 7: 04/05/24 03:31 04/05/24 03:31
== END 2024-04-06 18:43 | disposition home or self-care (01) ==
LOC: EC 21:34 → 6NMEDSUR 04-04 01:45
PROVIDERS: ADMIT Family Medicine; ATTEND Family Medicine
DX: K21.9 Gastro-esophageal reflux disease without esophagitis (principal); K25.9 Gastric ulcer, unspecified as acute or chronic, without hemorrhage or perforation; G47.30 Sleep apnea, unspecified; Z86.711 Personal history of pulmonary embolism; F41.9 Anxiety disorder, unspecified; F31.9 Bipolar disorder, unspecified; G89.29 Other chronic pain; E66.01 Morbid (severe) obesity due to excess calories; Z68.41 Body mass index [BMI] 40.0-44.9, adult; Z98.84 Bariatric surgery status; Z90.49 Acquired absence of other specified parts of digestive tract; Z87.891 Personal history of nicotine dependence; Z83.3 Family history of diabetes mellitus; Z81.8 Family history of other mental and behavioral disorders; Z82.49 Family history of ischemic heart disease and other diseases of the circulatory system; Z79.01 Long term (current) use of anticoagulants
CPT/HCPCS: 96376 ×3; 96366 ×4; 96367; 96372 ×3; 96361 ×2; 96365; 96375 ×2; 99285; 36415; 93005; 80053 ×2; 82150; 83605; 83690; 84484; 85025 ×2; 81001; 84703; 43249; G0378 ×3; J2405 ×4; J2001; J1650 ×3; J1170 ×4; J1885 ×2; J2704; J2470 ×3; C1726

== ENCOUNTER 2024-04-09 20:22 | Emergency (ER) | payer OTHER ==
--- NOTE | 2024-04-09 21:08 | ED ---
Abdominal Pain HPI - General Source: patient, RN notes reviewed Mode of arrival: ambulatory <Liliana Alas - Last Filed: 04/09/24 21:07> <Mayank Padgett - Last Filed: 04/10/24 01:47> <Enio Parra - Last Filed: 04/10/24 02:28> - General Chief Complaint: Abdominal Pain Stated Complaint: Abd Pain,Dizziness Time Seen by Provider: 04/09/24 21:07 - History of Present Illness Initial Comments: Quick note: 33-year-old female presented to the ER with a chief complaint of lightheaded and fatigue. Patient underwent a gastric sleeve by Dr. Liu on December 20, 2023. She states for the past 4 hours she has been extremely lightheaded and fatigue with extreme abdominal pain. She also is endorsing nausea and vomiting. She states she is unable to been able to urinate all day. Denies any fevers or chills. (Liliana Alas) Patient presents to the ED stating that she has had intermittent epigastric abdominal pain, nausea and vomiting ever since having a gastric sleeve procedure performed by Dr. Liu (general surgery) about 3 months ago. Patient states that her symptoms returned again last night, and have become worse since about 4 PM today. Patient also states that she has felt lightheaded this evening. Patient states that she took a dose of oxycodone for her pain about 4 hours ago, and she reports that her pain is currently 9/10 in severity. Patient denies trauma or injury, fever or chills, headache, focal numbness/weakness/neuro deficit, chest pain or pressure, dyspnea, palpitations, syncope, lower abdominal pain, back pain, diarrhea or constipation, bloody or melanotic stool, hematemesis, dysuria or urinary symptoms, or any other symptoms or complaints. (Mayank Padgett) - Related Data Home Medications Medication Instructions Recorded Confirmed Asenapine [Saphris] 5 mg SUBLINGUAL HS 03/08/24 04/09/24 Enoxaparin [Lovenox] 105 mg SQ Q12H 03/08/24 04/09/24 Ferrous Sulfate [Iron (65 MG 325 mg PO DAILY 04/04/24 04/09/24 Elemental)] LORazepam [Ativan] 0.5 mg PO BID PRN 04/04/24 04/09/24 Omeprazole [PriLOSEC] 20 mg PO AC-BID 04/04/24 04/09/24 Ondansetron Odt [Zofran ODT] 4 mg PO BID PRN 04/04/24 04/09/24 Potassium Chloride [Klor-Con M10] 10 meq PO DAILY 04/04/24 04/09/24 Sucralfate [Carafate] 1 gm PO ACHS 04/04/24 04/09/24 Previous Rx's Medication Instructions Recorded traZODone HCL [Desyrel] 50 mg PO HS 30 Days #30 tab 04/06/24 Allergies Allergy/AdvReac Type Severity Reaction Status Date / Time latex Allergy Rash/Hives Verified 04/09/24 10:46 morphine AdvReac Itching Verified 04/09/24 10:46 Review of Systems ROS Other: All systems not noted in ROS Statement are negative. <Liliana Alas - Last Filed: 04/09/24 21:07> ROS Other: All systems not noted in ROS Statement are negative. <Mayank Padgett - Last Filed: 04/10/24 01:47> ROS Other: All systems not noted in ROS Statement are negative. <Enio Parra - Last Filed: 04/10/24 02:28> ROS Statement: Those systems with pertinent positive or pertinent negative responses have been documented in the HPI. Past Medical History Past Medical History: GERD/Reflux, Sleep Apnea/CPAP/BIPAP Additional Past Medical History / Comment(s): iron defiency anemia, currently getting iron infusions, no cpap used, pulmonary embolism 02/13/24 History of Any Multi-Drug Resistant Organisms: None Reported Past Surgical History: Bariatric Surgery, Section, Cholecystectomy, Tubal Ligation, Uterine Ablation Additional Past Surgical History / Comment(s): 2008 AND 2015 (c/s) and 2010 (c holecyst). 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 Past Anesthesia/Blood Transfusion Reactions: No Reported Reaction Past Psychological History: Anxiety, Bipolar, Depression Smoking Status: Former smoker Past Alcohol Use History: None Reported Past Drug Use History: None Reported - Past Family History Mother Family Medical History: Asthma, COPD, Diabetes Mellitus, Hypertension Additional Family Medical History / Comment(s): depression, anxiety, sleep apnea, Father Family Medical History: Hypertension Additional Family Medical History / Comment(s): arthritis <Liliana Alas - Last Filed: 04/09/24 21:07> General Exam <Liliana Alas - Last Filed: 04/09/24 21:07> Limitations: no limitations General appearance: alert, in no apparent distress Eye exam: Present: normal appearance ENT exam: Present: mucous membranes moist Respiratory exam: Present: normal lung sounds bilaterally. Absent: respiratory distress, wheezes, rales, rhonchi, stridor Cardiovascular Exam: Present: regular rate, normal rhythm, normal heart sounds, other (Normal radial pulses bilaterally) GI/Abdominal exam: Present: soft, other (Moderate epigastric abdominal tenderness; obese abdomen). Absent: guarding, rebound Extremities exam: Absent: pedal edema Back exam: Absent: CVA tenderness (R), CVA tenderness (L) Neurological exam: Present: alert, oriented X3 Psychiatric exam: Present: normal affect Skin exam: Present: warm, dry, normal color <Mayank Padgett - Last Filed: 04/10/24 01:47> - General Exam Comments Initial Comments: Visual Physical Exam Vital signs reviewed General: Well-appearing, nontoxic, no acute distress. Head: Normocephalic, atraumatic Eyes: PERRLA, EOMI ENT: Airway patent Chest: Nonlabored breathing Skin: No visual rash, normal skin tone Neuro: Alert and oriented 3 Musculoskeletal: No gross abnormalities (Liliana Alas) Course <Mayank Padgett - Last Filed: 04/10/24 01:47> Vital Signs 04/09/24 04/09/24 04/10/24 20:32 22:30 01:40 Temperature 98.0 F 98.6 F 98.1 F Pulse Rate 90 84 84 Respiratory 18 17 15 Rate Blood Pressure 126/76 124/72 137/86 O2 Sat by Pulse 95 100 98 Oximetry - Reevaluation(s) Reevaluation #1: 04/10/24 01:47 Patient was endorsed to Dr. Parra (secondary to end of my shift) the patient's CT abdomen/pelvis report still pending. Dr. Parra to follow-up on the patient's CT report and to take over care of the patient at this time. (Mayank Padgett) Medical Decision Making <Liliana Alas - Last Filed: 04/09/24 21:07> - Lab Data Result diagrams: 04/09/24 21:54 04/09/24 21:54 <Mayank Padgett - Last Filed: 04/10/24 01:47> - Lab Data Result diagrams: 04/09/24 21:54 04/09/24 21:54 <Enio Parra - Last Filed: 04/10/24 02:28> - Medical Decision Making I performed the quick note portion of this chart. Electronically signed by Liliana Alas PA-C (Liliana Alas) Was pt. sent in by a medical professional or institution ([facility], EVALUATION SPECIALIST, urgent care, hospital, or custodial...) When possible be specific @ -No Did you speak to anyone other than the patient for history (EMS, parent, family, police, friend...)? What history was obtained from this source @ -No Did you review nursing and triage notes (agree or disagree)? Why? @ -I reviewed and agree with nursing and triage notes Were old charts reviewed (outside hosp., previous admission, EMS record, old EKG, old radiological studies, urgent care reports/EKG's, custodial records)? Report findings @ -No old charts were reviewed Differential Diagnosis (chest pain, altered mental status, abdominal pain women, abdominal pain men, vaginal bleeding, weakness, fever, dyspnea, syncope, headache, dizziness, GI bleed, back pain, seizure, CVA, palpatations, mental health, musculoskeletal)? @ -Differential Abdominal Pain Women: Appendicitis, Cholecystitis, biliary colic, diverticulitis, ischemic bowel, pancreatitis, hepatitis, gastroenteritis, AAA, incarcerated hernia, bowel obstruction, constipation, inflammatory bowel, peptic ulcer disease, splenic infarction, perforated viscus, nausea, vomiting, viral illness, food toxicity, this is not meant to be an all-inclusive list EKG interpreted by me (3pts min.). @ -None done X-rays interpreted by me (1pt min.). @ -None done U/S interpreted by me (1pt. min.). @ -None done What testing was considered but not performed or refused? (CT, X-rays, U/S, labs)? Why? @ -None What meds were considered but not given or refused? Why? @ -None Did you discuss the management of the patient with other professionals (professionals i.e. Dr., PA, EVALUATION SPECIALIST, lab, RT, psych nurse, nephrology social worker, chassis wirer, teacher, chief privacy officer, caseworker)? Give summary @ -No Was smoking cessation discussed for >3mins.? @ -No Was critical care preformed (if so, how long)? @ -No Were there social determinants of health that impacted care today? How? (Homelessness, low income, unemployed, alcoholism, drug addiction, transportation, low edu. Level, literacy, decrease access to med. care, senior living, rehab)? @ -No Was there de-escalation of care discussed even if they declined (Discuss DNR or withdrawal of care, Hospice)? DNR status @ -No What co-morbidities impacted this encounter? (DM, HTN, Smoking, COPD, CAD, Cancer, CVA, ARF, Chemo, Hep., AIDS, mental health diagnosis, sleep apnea, morbid obesity)? @ -Gastric sleeve procedure Was patient admitted / discharged? Hospital course, mention meds given and route, prescriptions, significant lab abnormalities, going to OR and other pert inent info. @ -[Patient was endorsed to Dr. Parra (secondary to end of my shift) the patient's CT abdomen/pelvis report still pending. Dr. Parra to follow-up on the patient's CT report and to take over care of the patient at this time. (Mayank Padgett) - Lab Data Lab Results 04/09/24 04/09/24 04/09/24 Range/Units 21:54 21:54 21:54 WBC 10.8 H (3.8-10.6) k/uL RBC 4.19 (3.80-5.40) m/uL Hgb 11.4 (11.4-16.0) gm/dL Hct 37.5 (34.0-46.0) % MCV 89.6 (80.0-100.0) fL MCH 27.3 (25.0-35.0) pg MCHC 30.4 L (31.0-37.0) g/dL RDW 17.9 H (11.5-15.5) % Plt Count 479 H (150-450) k/uL MPV 8.3 Neutrophils % 73 % Lymphocytes % 19 % Monocytes % 5 % Eosinophils % 2 % Basophils % 0 % Neutrophils # 7.9 H (1.3-7.7) k/uL Lymphocytes # 2.0 (1.0-4.8) k/uL Monocytes # 0.5 (0-1.0) k/uL Eosinophils # 0.2 (0-0.7) k/uL Basophils # 0.0 (0-0.2) k/uL Hypochromasia Marked Anisocytosis Slight PT (10.0-12.5) sec INR (<1.2) APTT (22.0-30.0) sec Sodium 139 (137-145) mmol/L Potassium 4.9 (3.5-5.1) mmol/L Chloride 107 (98-107) mmol/L Carbon Dioxide 21 L (22-30) mmol/L Anion Gap 11 mmol/L BUN 5 L (7-17) mg/dL Creatinine 0.42 L (0.52-1.04) mg/dL Est GFR (CKD-EPI)AfAm >90 (>60 ml/min/1.73 sqM) Est GFR (CKD-EPI)NonAf >90 (>60 ml/min/1.73 sqM) Glucose 73 L (74-99) mg/dL Plasma Lactic Acid Case 0.8 (0.7-2.0) mmol/L Calcium 9.2 (8.4-10.2) mg/dL Total Bilirubin 0.9 (0.2-1.3) mg/dL AST 57 H (14-36) U/L ALT 22 (4-34) U/L Alkaline Phosphatase 57 (38-126) U/L Total Protein 6.9 (6.3-8.2) g/dL Albumin 3.6 (3.5-5.0) g/dL Amylase 56 (30-110) U/L Lipase 74 (23-300) U/L HCG, Qual 04/09/24 04/09/24 Range/Units 22:37 22:37 WBC (3.8-10.6) k/uL RBC (3.80-5.40) m/uL Hgb (11.4-16.0) gm/dL Hct (34.0-46.0) % MCV (80.0-100.0) fL MCH (25.0-35.0) pg MCHC (31.0-37.0) g/dL RDW (11.5-15.5) % Plt Count (150-450) k/uL MPV Neutrophils % % Lymphocytes % % Monocytes % % Eosinophils % % Basophils % % Neutrophils # (1.3-7.7) k/uL Lymphocytes # (1.0-4.8) k/uL Monocytes # (0-1.0) k/uL Eosinophils # (0-0.7) k/uL Basophils # (0-0.2) k/uL Hypochromasia Anisocytosis PT 11.6 (10.0-12.5) sec INR 1.1 (<1.2) APTT 22.3 (22.0-30.0) sec Sodium (137-145) mmol/L Potassium (3.5-5.1) mmol/L Chloride (98-107) mmol/L Carbon Dioxide (22-30) mmol/L Anion Gap mmol/L BUN (7-17) mg/dL Creatinine (0.52-1.04) mg/dL Est GFR (CKD-EPI)AfAm (>60 ml/min/1.73 sqM) Est GFR (CKD-EPI)NonAf (>60 ml/min/1.73 sqM) Glucose (74-99) mg/dL Plasma Lactic Acid Case (0.7-2.0) mmol/L Calcium (8.4-10.2) mg/dL Total Bilirubin (0.2-1.3) mg/dL AST (14-36) U/L ALT (4-34) U/L Alkaline Phosphatase (38-126) U/L Total Protein (6.3-8.2) g/dL Albumin (3.5-5.0) g/dL Amylase (30-110) U/L Lipase (23-300) U/L HCG, Qual Not Detected - EKG Data EKG Comments: ED physician interpretation (interpreted by me): Normal sinus rhythm, ventricular rate of 84 bpm, no ectopy, normal NC and QRS intervals, normal QT interval, normal axis, no ST or T wave abnormality (Mayank Padgett) Disposition <Liliana Alas - Last Filed: 04/09/24 21:07> <Mayank Padgett - Last Filed: 04/10/24 01:47> Is patient prescribed a controlled substance at d/c from ED?: No <Enio Parra - Last Filed: 04/10/24 02:28> Clinical Impression: Abdominal pain, Nausea and vomiting, Lightheadedness Disposition: HOME SELF-CARE Condition: Good Instructions (If sedation given, give patient instructions): Abdominal Pain (ED) Referrals: Justin Molina MD [Primary Care Provider] - 1-2 days
[2024-04-09 22:23] LABS: Anisocytosis Slight; Basophils % (A) 0 %; Eosinophils # (A) 0.2 k/uL (0-0.7); Eosinophils % (A) 2 %; HCT 37.5 % (34.0-46.0); HGB 11.4 gm/dL (11.4-16.0); Hypochromasia Marked; Lymphocytes % (A) 19 %; MCH 27.3 pg (25.0-35.0); MCHC 30.4 g/dL (31.0-37.0); MCV 89.6 fL (80.0-100.0); Mean Platelet Volume 8.3; Monocytes # (A) 0.5 k/uL (0-1.0); Monocytes % (A) 5 %; Neutrophils # (A) 7.9 k/uL (1.3-7.7); Neutrophils % (A) 73 %; Platelet Count 479 k/uL (150-450); RBC 4.19 m/uL (3.80-5.40); RDW 17.9 % (11.5-15.5); WBC 10.8 k/uL (3.8-10.6)
[2024-04-09 22:39] LABS: ALT 22 U/L (4-34); African American GFR (CKD) >90 (>60 ml/min/1.73 sqM); Amylase 56 U/L (30-110); Anion Gap 11 mmol/L; Blood Urea Nitrogen 5 mg/dL (7-17); Calcium 9.2 mg/dL (8.4-10.2); Carbon Dioxide 21 mmol/L (22-30); Chloride 107 mmol/L (98-107); Glucose 73 mg/dL (74-99); Lipase 74 U/L (23-300); Non-African American GFR(CKD) >90 (>60 ml/min/1.73 sqM); Sodium 139 mmol/L (137-145)
[2024-04-09] MEDS: SODIUM CHLORIDE 0.9% 1,000 ML IV ONE (22:43)
[2024-04-09 22:45] LABS: AST 57 U/L (14-36); Albumin 3.6 g/dL (3.5-5.0); Potassium 4.9 mmol/L (3.5-5.1); Total Bilirubin 0.9 mg/dL (0.2-1.3); Total Protein 6.9 g/dL (6.3-8.2)
[2024-04-09] MEDS: ONDANSETRON 4 MG/2 ML VIAL IVP STA (22:45)
[2024-04-09 22:46] LABS: Alkaline Phosphatase 57 U/L (38-126)
[2024-04-09] MEDS: HYDROmorphone 1 MG/ML 1 ML SYRINGE IVP STA (22:53)
[2024-04-09 23:02] LABS: INR 1.1 (<1.2); Partial Thromboplastin Time 22.3 sec (22.0-30.0); Prothrombin Time 11.6 sec (10.0-12.5)
[2024-04-10] MEDS: LORazepam 2 MG/ML INJ IV STA (00:18)
[2024-04-10 01:44] VITALS: TEMP 98.1
--- NOTE | 2024-04-10 02:00 | CT ---
EXAM: CT Abdomen and Pelvis With Intravenous Contrast CLINICAL HISTORY: ITS.REASON CT Reason: abdominal pain, s/p bariatric surgery TECHNIQUE: Axial computed tomography images of the abdomen and pelvis with intravenous contrast. CTDI is 13 mGy and DLP is 1226.5 mGy-cm. This CT exam was performed using one or more of the following dose reduction techniques: automated exposure control, adjustment of the mA and/or kV according to patient size, and/or use of iterative reconstruction technique. COMPARISON: CT abdomen pelvis March 07, 2024. FINDINGS: Lung bases: Unremarkable. No mass. No consolidation. ABDOMEN: Liver: Unremarkable. No mass. Gallbladder and bile ducts: Cholecystectomy. No ductal dilation. Pancreas: Unremarkable. No mass. No ductal dilation. Spleen: Unremarkable. No splenomegaly. Adrenals: Unremarkable. No mass. Kidneys and ureters: Unremarkable. No solid mass. No hydronephrosis. Stomach and bowel: Gastric sleeve. No obstruction. No mucosal thickening. PELVIS: Appendix: No findings to suggest acute appendicitis. Bladder: Unremarkable. No mass. Reproductive: LEFT ovarian cystic lesion measures 3.0 x 2.6 cm. Recommend pelvic ultrasound. ABDOMEN and PELVIS: Intraperitoneal space: Unremarkable. No free air. No significant fluid collection. Bones/joints: No acute fracture. No dislocation. Soft tissues: Unremarkable. Vasculature: Unremarkable. No abdominal aortic aneurysm. Lymph nodes: Unremarkable. No enlarged lymph nodes. IMPRESSION: 1. LEFT ovarian cystic lesion measures 3.0 x 2.6 cm. Recommend pelvic ultrasound. 2. Cholecystectomy. 3. Gastric sleeve.
[2024-04-10 03:18] VITALS: BP 136/70; PULSE 90; RESP 18
[2024-04-10 04:27] LABS: Appearance,Urine Clear (Clear); Bilirubin,Urine Negative (Negative); Blood,Urine Negative (Negative); Color,Urine Colorless; Glucose,Urine (UA) Negative (Negative); Ketones,Urine 2+ (Negative); Leukocyte Esterase,Urine Negative (Negative); Nitrite,Urine Negative (Negative); Protein,Urine Negative (Negative); Urobilinogen,Urine <2.0 mg/dL (<2.0)
[2024-04-10 04:28] LABS: Specific Gravity,Urine >1.050 (1.001-1.035)
== END 2024-04-10 03:19 | disposition home or self-care (01) ==
LOC: EC 20:22
DX: R10.13 Epigastric pain (principal); R42 Dizziness and giddiness; R11.2 Nausea with vomiting, unspecified; E66.9 Obesity, unspecified; Z87.891 Personal history of nicotine dependence; Z88.5 Allergy status to narcotic agent; Z91.040 Latex allergy status; Z98.84 Bariatric surgery status; Z68.39 Body mass index [BMI] 39.0-39.9, adult
CPT/HCPCS: 36415; 93005; 80053; 82150; 83605; 83690; 85025; 85610; 85730; 81003; 84703; 74177; 99285; 96374; 96375 ×2; 96361; J2060; J2405; J1170; Q9967

== ENCOUNTER 2024-04-12 12:36 | Observation (INO) | payer OTHER ==
--- NOTE | 2024-04-12 13:34 | ED ---
Abdominal Pain HPI - General Source: patient, RN notes reviewed Mode of arrival: ambulatory Limitations: no limitations - History of Present Illness MD Complaint: abdominal pain <Anne Morin - Last Filed: 04/12/24 13:34> - General Source: patient, RN notes reviewed Mode of arrival: ambulatory Limitations: no limitations <Mich Will - Last Filed: 04/12/24 21:25> - General Chief Complaint: Abdominal Pain Stated Complaint: abd pain/dizzy/fatigue Time Seen by Provider: 04/12/24 13:32 - History of Present Illness Initial Comments: Quick Note: This is a 33-year-old female who presents to the emergency department for abdominal pain, nausea, and vomiting. Patient had gastric sleeve surgery in December of this year and states that there is stenosis of this leading to recurrent problems with nausea, vomiting, and abdominal pain. States that she has been here for this several times recently. (Anne Morin) Patient is a 33-year-old female presenting to the emergency department with concerns for abdominal problems. Patient did had gastric sleeve done in December. Patient has been having problems since that time. Symptoms have begun to get worse again over the past couple of days. Patient has discomfort and nausea and vomiting. Symptoms are similar to previous times. Patient has had multiple CT scans of her abdomen pelvis since the surgery including just a few days ago. Symptoms are similar to those previous visits. (Mich Will) - Related Data Home Medications Medication Instructions Recorded Confirmed Asenapine [Saphris] 5 mg SUBLINGUAL HS 03/08/24 04/09/24 Enoxaparin [Lovenox] 105 mg SQ Q12H 03/08/24 04/09/24 Ferrous Sulfate [Iron (65 MG 325 mg PO DAILY 04/04/24 04/09/24 Elemental)] LORazepam [Ativan] 0.5 mg PO BID PRN 04/04/24 04/09/24 Omeprazole [PriLOSEC] 20 mg PO AC-BID 04/04/24 04/09/24 Ondansetron Odt [Zofran ODT] 4 mg PO BID PRN 04/04/24 04/09/24 Potassium Chloride [Klor-Con M10] 10 meq PO DAILY 04/04/24 04/09/24 Sucralfate [Carafate] 1 gm PO ACHS 04/04/24 04/09/24 Previous Rx's Medication Instructions Recorded traZODone HCL [Desyrel] 50 mg PO HS 30 Days #30 tab 04/06/24 Allergies Allergy/AdvReac Type Severity Reaction Status Date / Time latex Allergy Rash/Hives Verified 04/12/24 13:28 morphine AdvReac Itching Verified 04/12/24 13:28 Review of Systems ROS Other: All systems not noted in ROS Statement are negative. <Anne Morin - Last Filed: 04/12/24 13:34> ROS Other: All systems not noted in ROS Statement are negative. Constitutional: Denies: fever Eyes: Denies: eye pain ENT: Denies: ear pain Respiratory: Denies: cough Cardiovascular: Denies: chest pain Gastrointestinal: Reports: as per HPI, abdominal pain, nausea, vomiting Musculoskeletal: Denies: back pain <Mich Will - Last Filed: 04/12/24 21:25> ROS Statement: Those systems with pertinent positive or pertinent negative responses have been documented in the HPI. Past Medical History Past Medical History: GERD/Reflux, Sleep Apnea/CPAP/BIPAP Additional Past Medical History / Comment(s): iron defiency anemia, currently getting iron infusions, no cpap used, pulmonary embolism 02/13/24 History of Any Multi-Drug Resistant Organisms: None Reported Past Surgical History: Bariatric Surgery, Section, Cholecystectomy, Tubal Ligation, Uterine Ablation Additional Past Surgical History / Comment(s): 2008 AND 2015 (c/s) and 2010 (cholecyst). 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 Past Anesthesia/Blood Transfusion Reactions: No Reported Reaction Past Psychological History: Anxiety, Bipolar, Depression Smoking Status: Former smoker Past Alcohol Use History: None Reported Past Drug Use History: None Reported - Past Family History Mother Family Medical History: Asthma, COPD, Diabetes Mellitus, Hypertension Additional Family Medical History / Comment(s): depression, anxiety, sleep apnea, Father Family Medical History: Hypertension Additional Family Medical History / Comment(s): arthritis <Anne Morin - Last Filed: 04/12/24 13:34> General Exam Limitations: no limitations <Anne Morin - Last Filed: 04/12/24 13:34> Limitations: no limitations General appearance: alert, in no apparent distress Head exam: Present: normocephalic Eye exam: Present: normal appearance Neck exam: Present: normal inspection Respiratory exam: Present: normal lung sounds bilaterally Cardiovascular Exam: Present: regular rate, normal rhythm GI/Abdominal exam: Present: soft, tenderness (Mild epigastric tenderness to palpation). Absent: distended Extremities exam: Present: normal inspection. Absent: pedal edema, calf tenderness Neurological exam: Present: alert Psychiatric exam: Present: normal affect, normal mood Skin exam: Present: normal color <Mich Will - Last Filed: 04/12/24 21:25> - General Exam Comments Initial Comments: Visual Physical Exam Vital signs reviewed General: Well-appearing, nontoxic, no acute distress. Head: Normocephalic, atraumatic Eyes: PERRLA, EOMI ENT: Airway patent Chest: Nonlabored breathing Skin: No visual rash, normal skin tone Neuro: Alert and oriented 3 Musculoskeletal: No gross abnormalities (Anne Morin) Course Vital Signs 04/12/24 04/12/24 04/12/24 13:25 17:30 20:18 Temperature 98.4 F Pulse Rate 96 92 71 Respiratory 18 18 18 Rate Blood Pressure 124/88 130/76 126/84 O2 Sat by Pulse 99 100 99 Oximetry Medical Decision Making <Anne Morin - Last Filed: 04/12/24 13:34> - Lab Data Result diagrams: 04/12/24 20:20 04/12/24 20:20 <Mich Will - Last Filed: 04/12/24 21:25> - Medical Decision Making I performed the QuickNote portion of this chart. Signed Anne Morin PA-C. (Anne Morin) Was pt. sent in by a medical professional or institution (STEPHY Wild, COMMUTATOR OPERATOR, urgent care, hospital, or skilled nursing...) When possible be specific @ -Patient states she was sent in by Dr. pham office Did you speak to anyone other than the patient for history (EMS, parent, family, police, friend...)? What history was obtained from this source @ -No Did you review nursing and triage notes (agree or disagree)? Why? @ -I reviewed and agree with nursing and triage notes Were old charts reviewed (outside hosp., previous admission, EMS record, old EKG, old radiological studies, urgent care reports/EKG's, skilled nursing records)? Report findings @ -Previous charts and CT scans were Differential Diagnosis (chest pain, altered mental status, abdominal pain women, abdominal pain men, vaginal bleeding, weakness, fever, dyspnea, syncope, headache, dizziness, GI bleed, back pain, seizure, CVA, palpatations, mental health, musculoskeletal)? @ -Differential Abdominal Pain Women: Appendicitis, Cholecystitis, diverticulosis, ischemic bowel, pancreatitis, hepatitis, UTI, gastroenteritis, AAA, incarcerated hernia, bowel obstruction, constipation, inflammatory bowel, hepatitis, peptic ulcer disease, splenic infarction, perforated viscus, vulvitis, ovarian torsion, PID, kidney stone, placenta abruption, this is not meant to be an all-inclusive list EKG interpreted by me (3pts min.). @ -As above X-rays interpreted by me (1pt min.). @ -None done CT interpreted by me (1pt min.). @ -None done U/S interpreted by me (1pt. min.). @ -None done What testing was considered but not performed or refused? (CT, X-rays, U/S, labs)? Why? @ -Considered CT scan of the abdomen and pelvis however patient has had multiple recent CT scans and does not want repeat done at this What meds were considered but not given or refused? Why? @ -None Did you discuss the management of the patient with other professionals (professionals i.e. , PA, COMMUTATOR OPERATOR, lab, RT, psych nurse, nursing home social worker, senior administrative assistant, teacher, strike operations officer, case management director)? Give summary @ -Case was discussed with Dr. Molina who will admit his patient. He requests barium swallow with small bowel follow-through and this was ordered Was smoking cessation discussed for >3mins.? @ -No Was critical care preformed (if so, how long)? @ -No Were there social determinants of health that impacted care today? How? (Homelessness, low income, unemployed, alcoholism, drug addiction, transportati on, low edu. Level, literacy, decrease access to med. care, correction, rehab)? @ -No Was there de-escalation of care discussed even if they declined (Discuss DNR or withdrawal of care, Hospice)? DNR status @ -No What co-morbidities impacted this encounter? (DM, HTN, Smoking, COPD, CAD, Cancer, CVA, ARF, Chemo, Hep., AIDS, mental health diagnosis, sleep apnea, morbid obesity)? @ -History of bariatric surgery Was patient admitted / discharged? Hospital course, mention meds given and route, prescriptions, significant lab abnormalities, going to OR and other pertinent info. @ -Patient given medications and labs checked. Patient still has some symptoms on reevaluation, Dr. Molina paged for admission of this patient. Dr. Latham is not on-call tonight. Admission orders written. Undiagnosed new problem with uncertain prognosis? @ -No Drug Therapy requiring intensive monitoring for toxicity (Heparin, Nitro, Insulin, Cardizem)? @ -No Were any procedures done? @ -No Diagnosis/symptom? @ -Vomiting Acute, or Chronic, or Acute on Chronic? @ -Acute on chronic Uncomplicated (without systemic symptoms) or Complicated (systemic symptoms)? @ -Default Side effects of treatment? @ -No Exacerbation, Progression, or Severe Exacerbation? @ -No Poses a threat to life or bodily function? How? (Chest pain, USA, NM, pneumonia, PE, COPD, DKA, ARF, appy, cholecystitis, CVA, Diverticulitis, Homicidal, Suicidal, threat to staff... and all critical care pts) @ -No (Mich Will) - Lab Data Lab Results 04/12/24 04/12/24 04/12/24 Range/Units 20:20 20:20 20:20 WBC 8.4 (3.8-10.6) k/uL RBC 3.96 (3.80-5.40) m/uL Hgb 11.1 L (11.4-16.0) gm/dL Hct 35.6 (34.0-46.0) % MCV 89.9 (80.0-100.0) fL MCH 28.1 (25.0-35.0) pg MCHC 31.2 (31.0-37.0) g/dL RDW 17.7 H (11.5-15.5) % Plt Count 355 (150-450) k/uL MPV 8.7 Neutrophils % 62 % Lymphocytes % 29 % Monocytes % 5 % Eosinophils % 2 % Basophils % 0 % Neutrophils # 5.3 (1.3-7.7) k/uL Lymphocytes # 2.4 (1.0-4.8) k/uL Monocytes # 0.5 (0-1.0) k/uL Eosinophils # 0.2 (0-0.7) k/uL Basophils # 0.0 (0-0.2) k/uL Hypochromasia Marked Anisocytosis Slight Sodium 141 (137-145) mmol/L Potassium 3.1 L (3.5-5.1) mmol/L Chloride 107 (98-107) mmol/L Carbon Dioxide 24 (22-30) mmol/L Anion Gap 10 mmol/L BUN 5 L (7-17) mg/dL Creatinine 0.44 L (0.52-1.04) mg/dL Est GFR (CKD-EPI)AfAm >90 (>60 ml/min/1.73 sqM) Est GFR (CKD-EPI)NonAf >90 (>60 ml/min/1.73 sqM) Glucose 78 (74-99) mg/dL Plasma Lactic Acid Case 0.7 (0.7-2.0) mmol/L Calcium 9.3 (8.4-10.2) mg/dL Total Bilirubin 0.4 (0.2-1.3) mg/dL AST 46 H (14-36) U/L ALT 37 H (4-34) U/L Alkaline Phosphatase 68 (38-126) U/L Total Protein 6.1 L (6.3-8.2) g/dL Albumin 3.2 L (3.5-5.0) g/dL Amylase 49 (30-110) U/L Lipase 72 (23-300) U/L Disposition <Anne Morin - Last Filed: 04/12/24 13:34> Is patient prescribed a controlled substance at d/c from ED?: No Time of Disposition: 21:19 <Mich Will - Last Filed: 04/12/24 21:25> Clinical Impression: Abdominal pain, Nausea and vomiting Disposition: ADMITTED IP TO THIS HOSP Referrals: Justin Molina MD [Primary Care Provider] - 1-2 days
[2024-04-12] MEDS: SODIUM CHLORIDE 0.9% 500 ML 500 ML IV STA (20:34)
[2024-04-12] MEDS: FAMOTIDINE 20 MG/2 ML VIAL IV STA (20:34)
[2024-04-12] MEDS: SODIUM CHLORIDE 0.9% 1,000 ML IV STA (20:34)
[2024-04-12] MEDS: METOCLOPRAMIDE 5 MG/ML 2 ML VIAL IVP STA (20:37)
[2024-04-12] MEDS: HYDROmorphone 1 MG/ML 1 ML SYRINGE IVP STA (20:40)
[2024-04-12 20:44] LABS: Anisocytosis Slight; Basophils % (A) 0 %; Eosinophils # (A) 0.2 k/uL (0-0.7); Eosinophils % (A) 2 %; HCT 35.6 % (34.0-46.0); HGB 11.1 gm/dL (11.4-16.0); Hypochromasia Marked; Lymphocytes # (A) 2.4 k/uL (1.0-4.8); Lymphocytes % (A) 29 %; MCH 28.1 pg (25.0-35.0); MCHC 31.2 g/dL (31.0-37.0); MCV 89.9 fL (80.0-100.0); Mean Platelet Volume 8.7; Monocytes # (A) 0.5 k/uL (0-1.0); Monocytes % (A) 5 %; Neutrophils # (A) 5.3 k/uL (1.3-7.7); Neutrophils % (A) 62 %; Platelet Count 355 k/uL (150-450); RBC 3.96 m/uL (3.80-5.40); RDW 17.7 % (11.5-15.5); WBC 8.4 k/uL (3.8-10.6)
[2024-04-12 20:59] LABS: ALT 37 U/L (4-34); AST 46 U/L (14-36); African American GFR (CKD) >90 (>60 ml/min/1.73 sqM); Albumin 3.2 g/dL (3.5-5.0); Alkaline Phosphatase 68 U/L (38-126); Amylase 49 U/L (30-110); Anion Gap 10 mmol/L; Blood Urea Nitrogen 5 mg/dL (7-17); Calcium 9.3 mg/dL (8.4-10.2); Carbon Dioxide 24 mmol/L (22-30); Chloride 107 mmol/L (98-107); Glucose 78 mg/dL (74-99); Lipase 72 U/L (23-300); Non-African American GFR(CKD) >90 (>60 ml/min/1.73 sqM); Potassium 3.1 mmol/L (3.5-5.1); Sodium 141 mmol/L (137-145); Total Bilirubin 0.4 mg/dL (0.2-1.3); Total Protein 6.1 g/dL (6.3-8.2)
[2024-04-12] MEDS ORDERED: ACETAMINOPHEN TAB 325 MG TAB PO PRN (21:20)
[2024-04-12] MEDS ORDERED: NALOXONE 0.4 MG/ML 1 ML VIAL IV PRN (21:20)
[2024-04-12] MEDS: SODIUM CHLORIDE 0.9% 1,000 ML IV SCH (21:57)
[2024-04-12] MEDS: POTASSIUM BICARBONATE/CIT AC 20 MEQ TABLET.EFF PO ONE (22:18)
[2024-04-12] MEDS: POTAS-SOD-PHOS 278-164-250 MG 1 EACH PACKET PO STA (22:18)
[2024-04-12] MEDS: POTASSIUM CHLORIDE 10 MEQ in WATER FOR INJECTION 1 100ML.BAG IVPB STA ×2 (22:25→23:43)
[2024-04-12] MEDS: POTASSIUM CHLORIDE ER 20 MEQ TAB.ER PO STA (22:28)
[2024-04-12 22:37] LABS: Appearance,Urine Cloudy (Clear); Bacteria,Urine Occasional /hpf; Bilirubin,Urine 1+ (Negative); Blood,Urine Trace (Negative); Color,Urine Yellow; Glucose,Urine (UA) Negative (Negative); Hyaline Casts,Urine 12 /lpf (0-2); Ketones,Urine 3+ (Negative); Leukocyte Esterase,Urine Negative (Negative); Mucus,Urine Many /hpf; Nitrite,Urine Negative (Negative); Protein,Urine 1+ (Negative); RBC,Urine 4 /hpf (0-5); Specific Gravity,Urine 1.021 (1.001-1.035); Squamous Epithelial Cell,Urine 7 /hpf (0-4); WBC,Urine 2 /hpf (0-5)
[2024-04-12] MEDS: HYDROmorphone 1 MG/ML 1 ML SYRINGE IVP PRN (23:37)
[2024-04-13] MEDS: LORazepam 1 MG TAB PO PRN (03:33)
[2024-04-13] MEDS: ONDANSETRON 4 MG/2 ML VIAL IVP PRN (07:50)
[2024-04-13] MEDS: PANTOPRAZOLE 40 MG/10 ML VIAL IV SCH (09:13)
[2024-04-13 10:20] LABS: Anisocytosis Slight; Basophils % (A) 0 %; Eosinophils # (A) 0.1 k/uL (0-0.7); Eosinophils % (A) 2 %; HCT 33.4 % (34.0-46.0); HGB 10.1 gm/dL (11.4-16.0); Hypochromasia Marked; Lymphocytes # (A) 1.2 k/uL (1.0-4.8); Lymphocytes % (A) 22 %; MCH 27.5 pg (25.0-35.0); MCHC 30.2 g/dL (31.0-37.0); MCV 91.1 fL (80.0-100.0); Mean Platelet Volume 9.2; Monocytes # (A) 0.5 k/uL (0-1.0); Monocytes % (A) 8 %; Neutrophils # (A) 3.7 k/uL (1.3-7.7); Neutrophils % (A) 67 %; Platelet Count 299 k/uL (150-450); RBC 3.66 m/uL (3.80-5.40); RDW 17.7 % (11.5-15.5); WBC 5.5 k/uL (3.8-10.6)
[2024-04-13 10:35] LABS: ALT 57 U/L (4-34); AST 84 U/L (14-36); African American GFR (CKD) >90 (>60 ml/min/1.73 sqM); Albumin 2.7 g/dL (3.5-5.0); Alkaline Phosphatase 64 U/L (38-126); Anion Gap 8 mmol/L; Blood Urea Nitrogen 3 mg/dL (7-17); Calcium 8.3 mg/dL (8.4-10.2); Carbon Dioxide 23 mmol/L (22-30); Chloride 110 mmol/L (98-107); Glucose 84 mg/dL (74-99); Non-African American GFR(CKD) >90 (>60 ml/min/1.73 sqM); Potassium 3.2 mmol/L (3.5-5.1); Sodium 141 mmol/L (137-145); Total Bilirubin 0.4 mg/dL (0.2-1.3); Total Protein 5.3 g/dL (6.3-8.2)
--- NOTE | 2024-04-13 14:38 | P.GSCN ---
History of Present Illness Consult date: 04/13/24 Reason for Consult: Abdominal pain History of present illness: 33-year-old female underwent sleeve gastrectomy in December. Patient has had diffi culties ever since then. She has had workup extensively here in [facility] and also at [facility]. Patient has had numerous upper endoscopies with dilation. Per the patient and per the previous notes no definite stricture or obstruction has been identified. Patient has been on TPN because of poor intake. She apparently had pulmonary embolism also noted on 02/12. For that reason patient is on anticoagulation. She has discussed possible conversion to gastric bypass with Dr. Barnhart at [facility]. They wanted to wait at least 2 months after the recent PE. Came in today because her pain in the upper abdomen was worse. Some difficulty swallowing and has dysphagia symptoms once again. Review of Systems The patient denies any acute changes in vision or hearing, no dysphagia or odynophagia, no chest pain or shortness of breath, no dysuria or hematuria, no headache, no runny nose, no rectal bleeding or melena, no unexplained weight loss Past Medical History Past Medical History: GERD/Reflux, Sleep Apnea/CPAP/BIPAP Additional Past Medical History / Comment(s): iron defiency anemia, currently getting iron infusions, no cpap used, pulmonary embolism 02/13/24 History of Any Multi-Drug Resistant Organisms: None Reported Past Surgical History: Bariatric Surgery, Section, Cholecystectomy, Tubal Ligation, Uterine Ablation Additional Past Surgical History / Comment(s): 2008 AND 2015 (c/s) and 2010 (ch olecyst). 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 Past Anesthesia/Blood Transfusion Reactions: No Reported Reaction Past Psychological History: Anxiety, Bipolar, Depression Smoking Status: Former smoker Past Alcohol Use History: None Reported Past Drug Use History: None Reported - Past Family History Mother Family Medical History: Asthma, COPD, Diabetes Mellitus, Hypertension Additional Family Medical History / Comment(s): depression, anxiety, sleep apnea, Father Family Medical History: Hypertension Additional Family Medical History / Comment(s): arthritis Medications and Allergies Home Medications Medication Instructions Recorded Confirmed Type Asenapine [Saphris] 5 mg SUBLINGUAL HS 03/08/24 04/13/24 History Ferrous Sulfate [Iron (65 MG 325 mg PO DAILY 04/04/24 04/13/24 History Elemental)] LORazepam [Ativan] 0.5 mg PO BID PRN 04/04/24 04/13/24 History Omeprazole [PriLOSEC] 20 mg PO AC-BID 04/04/24 04/13/24 History Ondansetron Odt [Zofran ODT] 4 mg PO BID PRN 04/04/24 04/13/24 History Potassium Chloride [Klor-Con M10] 10 meq PO DAILY 04/04/24 04/13/24 History Sucralfate [Carafate] 1 gm PO ACHS 04/04/24 04/13/24 History traZODone HCL [Desyrel] 50 mg PO HS 30 Days #30 tab 04/06/24 04/13/24 Rx Allergies Allergy/AdvReac Type Severity Reaction Status Date / Time latex Allergy Rash/Hives Verified 04/13/24 09:28 morphine AdvReac Itching Verified 04/13/24 09:28 Surgical - Exam Vital Signs Temp Pulse Resp BP Pulse Ox 98.4 F 96 18 124/88 99 04/12/24 13:25 04/12/24 13:25 04/12/24 13:25 04/12/24 13:25 04/12/24 13:25 Physical exam: General: Well-developed, well-nourished HEENT: Normocephalic, sclerae nonicteric Abdomen: Nontender, nondistended Extremities: No edema Neuro: Alert and oriented Results - Labs 04/13/24 09:22 04/13/24 09:22 Abnormal Lab Results - Last 24 Hours (Table) 04/12/24 04/12/24 04/12/24 Range/Units 14:00 20:20 20:20 RBC (3.80-5.40) m/uL Hgb 11.1 L (11.4-16.0) gm/dL Hct (34.0-46.0) % MCHC (31.0-37.0) g/dL RDW 17.7 H (11.5-15.5) % Potassium 3.1 L (3.5-5.1) mmol/L Chloride (98-107) mmol/L BUN 5 L (7-17) mg/dL Creatinine 0.44 L (0.52-1.04) mg/dL Calcium (8.4-10.2) mg/dL AST 46 H (14-36) U/L ALT 37 H (4-34) U/L Total Protein 6.1 L (6.3-8.2) g/dL Albumin 3.2 L (3.5-5.0) g/dL Urine Appearance Cloudy H (Clear) Urine Protein 1+ H (Negative) Urine Ketones 3+ H (Negative) Urine Blood Trace H (Negative) Urine Bilirubin 1+ H (Negative) Ur Squamous Epith Cells 7 H (0-4) /hpf Urine Bacteria Occasional H (None) /hpf Hyaline Casts 12 H (0-2) /lpf Urine Mucus Many H (None) /hpf 04/13/24 04/13/24 Range/Units 09:22 09:22 RBC 3.66 L (3.80-5.40) m/uL Hgb 10.1 L (11.4-16.0) gm/dL Hct 33.4 L (34.0-46.0) % MCHC 30.2 L (31.0-37.0) g/dL RDW 17.7 H (11.5-15.5) % Potassium 3.2 L (3.5-5.1) mmol/L Chloride 110 H (98-107) mmol/L BUN 3 L (7-17) mg/dL Creatinine 0.45 L (0.52-1.04) mg/dL Calcium 8.3 L (8.4-10.2) mg/dL AST 84 H (14-36) U/L ALT 57 H (4-34) U/L Total Protein 5.3 L (6.3-8.2) g/dL Albumin 2.7 L (3.5-5.0) g/dL Urine Appearance (Clear) Urine Protein (Negative) Urine Ketones (Negative) Urine Blood (Negative) Urine Bilirubin (Negative) Ur Squamous Epith Cells (0-4) /hpf Urine Bacteria (None) /hpf Hyaline Casts (0-2) /lpf Urine Mucus (None) /hpf Diabetes panel 04/12/24 04/13/24 Range/Units 20:20 09:22 Sodium 141 141 (137-145) mmol/L Potassium 3.1 L 3.2 L (3.5-5.1) mmol/L Chloride 107 110 H (98-107) mmol/L Carbon Dioxide 24 23 (22-30) mmol/L BUN 5 L 3 L (7-17) mg/dL Creatinine 0.44 L 0.45 L (0.52-1.04) mg/dL Glucose 78 84 (74-99) mg/dL Calcium 9.3 8.3 L (8.4-10.2) mg/dL AST 46 H 84 H (14-36) U/L ALT 37 H 57 H (4-34) U/L Alkaline Phosphatase 68 64 (38-126) U/L Total Protein 6.1 L 5.3 L (6.3-8.2) g/dL Albumin 3.2 L 2.7 L (3.5-5.0) g/dL Calcium panel 04/12/24 04/13/24 Range/Units 20:20 09:22 Calcium 9.3 8.3 L (8.4-10.2) mg/dL Albumin 3.2 L 2.7 L (3.5-5.0) g/dL Pituitary panel 04/12/24 04/13/24 Range/Units 20:20 09:22 Sodium 141 141 (137-145) mmol/L Potassium 3.1 L 3.2 L (3.5-5.1) mmol/L Chloride 107 110 H (98-107) mmol/L Carbon Dioxide 24 23 (22-30) mmol/L BUN 5 L 3 L (7-17) mg/dL Creatinine 0.44 L 0.45 L (0.52-1.04) mg/dL Glucose 78 84 (74-99) mg/dL Calcium 9.3 8.3 L (8.4-10.2) mg/dL Adrenal panel 04/12/24 04/13/24 Range/Units 20:20 09:22 Sodium 141 141 (137-145) mmol/L Potassium 3.1 L 3.2 L (3.5-5.1) mmol/L Chloride 107 110 H (98-107) mmol/L Carbon Dioxide 24 23 (22-30) mmol/L BUN 5 L 3 L (7-17) mg/dL Creatinine 0.44 L 0.45 L (0.52-1.04) mg/dL Glucose 78 84 (74-99) mg/dL Calcium 9.3 8.3 L (8.4-10.2) mg/dL Total Bilirubin 0.4 0.4 (0.2-1.3) mg/dL AST 46 H 84 H (14-36) U/L ALT 37 H 57 H (4-34) U/L Alkaline Phosphatase 68 64 (38-126) U/L Total Protein 6.1 L 5.3 L (6.3-8.2) g/dL Albumin 3.2 L 2.7 L (3.5-5.0) g/dL Assessment and Plan (1) Abdominal pain Narrative/Plan: 33-year-old female with abdominal pain. Patient with ongoing dysphagia. Continue antiacid therapy. Continue anticoagulation. CAT scan results reviewed. Patient with ovarian cyst and ultrasound advised by radiology. Will order that. Current Visit: Yes Status: Acute Code(s): R10.9 - UNSPECIFIED ABDOMINAL PAIN SNOMED Code(s): 77281923
--- NOTE | 2024-04-13 15:39 | US ---
EXAMINATION TYPE: US pelvic complete DATE OF EXAM: 04/13/2024 COMPARISON: CT 2023 CLINICAL INDICATION: Female, 33 years old with history of Ovarian cyst; TECHNIQUE: Transabdominal (TA). Transabdominal sonographic images of the pelvis were acquired. Date of LMP: unknown EXAM MEASUREMENTS: Uterus: 8.4 x 3.6 x 5.0 cm Endometrial Stripe: 0.31 cm Right Ovary: 3.0 x 2.1 x 1.7 cm Left Ovary: 4.2 x 2.5 x 4.5 cm 1. Uterus: Retroverted Probable nabothian cysts 2. Endometrium: wnl 3. Right Ovary: wnl 4. Left Ovary: Cystic structure 2.4 x 1.7 x 3.2cm Spectral, color and waveform doppler imaging shows good arterial and venous flow within the left ov oscar; there is no evidence for ovarian torsion. 5. Bilateral Adnexa: wnl 6. Posterior cul-de-sac: wnl Unremarkable retroverted uterus. Cervical nabothian cysts. Endometrium is within normal limits. Right ovary is unremarkable. Dominant left follicular cyst within the left ovary. This demonstrates thin w all with peripheral color flow. No free fluid. IMPRESSION: 1. No ultrasound evidence for acute process. 2. Dominant left ovarian follicular cyst measuring up to 3.2 cm.
[2024-04-13] MEDS ORDERED: ONDANSETRON ODT 4 MG TAB PO PRN (15:49)
[2024-04-13] MEDS ORDERED: ENOXAPARIN 120 MG/0.8 ML SYRINGE SQ SCH (16:00)
[2024-04-13] MEDS: ENOXAPARIN 100 MG/ML SYRINGE SQ SCH (17:38)
[2024-04-13] MEDS: PANTOPRAZOLE 40 MG TABLET PO SCH (17:51)
[2024-04-13] MEDS: SUCRALFATE 1 GM TAB PO SCH (17:51)
[2024-04-13] MEDS: traZODone HCL 50 MG TAB PO SCH (20:56)
[2024-04-13] MEDS: ZOLPIDEM 5 MG TAB PO SCH (20:56)
[2024-04-13] MEDS: IPRATROPIUM-ALBUTEROL 3 ML NEB INHALATION SCH (21:02)
[2024-04-13] MEDS: ASENAPINE 5 MG TAB SUBLINGUAL SCH (21:50)
--- NOTE | 2024-04-13 23:45 | PN ---
PROGRESS NOTE SUBJECTIVE: This is a 33-year-old white female who came to the emergency room for abdominal pain, nausea, vomiting. surgery with recurrent problems with nausea, vomiting, and abdominal pain. She is status post pulmonary embolus after postop. She also had possibly at [facility]. She came back here with multiple admissions for vomiting, nausea. HOME MEDICINES: 1. Saphris. 2. Lovenox. 3. Iron. 4. Ativan. 5. Prilosec. 6. Zofran. 7. Klor-Con. 8. Carafate. ALLERGIES: Latex, morphine. REVIEW OF SYSTEMS: A 14-point review of systems otherwise negative. PAST MEDICAL HISTORY: GERD, sleep apnea, pulmonary embolism, anemia, iron deficiency anemia. PAST SURGICAL HISTORY: Bariatric surgery, , cholecystectomy, tubal ligation. FAMILY HISTORY: Mother asthma, COPD. Father hypertension. PHYSICAL EXAMINATION: VITAL SIGNS: Stable, afebrile. Temperature 98.4, pulse 70s to 90s, respiratory rate 16 to 18, blood pressure 120s to 130s over 80s, O2 99. CARDIOVASCULAR: S1, S2. LUNGS: Transmitted upper sounds. GI: Soft. HEMATOLOGY: Negative for Homans. PSYCH: Fair mood and affect. MUSCULOSKELETAL: Good range of motion. NEUROLOGIC: Alert and oriented x3. Hemoglobin is 11.1, white count 8.4, potassium 3.1, sodium 130.41, BUN 5, creatinine 0.44. Lactic acid 0.7. Abdominal pain, nausea, vomiting, gastroparesis status post gastric sleeve, hypokalemia, dehydration, history of pulmonary embolism. Prognosis guarded. Continue current treatment. Home medications restarted. Wait for surgical GI consultation. Rehydrate. MMODL / IJN: [id number] /
[2024-04-14] MEDS: POTASSIUM CITRATE 10 MEQ TABLET.ER PO SCH (09:05)
[2024-04-14] MEDS: FERROUS SULFATE 325 MG TAB PO SCH (09:05)
[2024-04-14] MEDS: HYDROmorphone 0.5 MG/0.5 ML SYRINGE IVP PRN (09:59)
[2024-04-14 11:41] LABS: Basophils # (A) 0.03 X 10*3/uL (0.00-0.10); Basophils % (A) 0.4 %; Eosinophils # (A) 0.15 X 10*3/uL (0.04-0.35); Eosinophils % (A) 2.2 %; HCT 30.1 % (37.2-46.3); HGB 9.3 g/dL (12.0-15.0); Lymphocytes # (A) 2.23 X 10*3/uL (0.90-5.00); Lymphocytes % (A) 33.3 %; MCH 27.5 pg (27.0-32.0); MCHC 30.9 g/dL (32.0-37.0); MCV 89.1 FL (80.0-97.0); Mean Platelet Volume 12.3 FL (9.5-12.2); Monocytes # (A) 0.54 X 10*3/uL (0.20-1.00); Monocytes % (A) 8.1 %; NRBC Per 100 WBC 0 X 10*3/uL (0.00-0.01); Neutrophils # (A) 3.74 X 10*3/uL (1.80-7.70); Neutrophils % (A) 55.9 %; Platelet Count 255 X 10*3/uL (140-440); RBC 3.38 X 10*6/uL (4.10-5.20)
[2024-04-14 12:02] LABS: ALT 50 U/L (8-44); AST 40 U/L (13-35); Albumin 2.9 g/dL (3.8-4.9); Albumin/Globulin Ratio 1.38 Ratio (1.60-3.17); Alkaline Phosphatase 66 U/L (41-126); BUN/Creat Ratio <7.00 Ratio (12.00-20.00); Blood Urea Nitrogen <3.5 mg/dL (9.0-27.0); Calcium 8.3 mg/dL (8.7-10.3); Carbon Dioxide 23.9 mmol/L (21.6-31.8); Chloride 106 mmol/L (96-109); Globulin 2.1 g/dL (1.6-3.3); Glucose 87 mg/dL (70-110); Potassium 3.2 mmol/L (3.5-5.5); Sodium 143 mmol/L (135-145); Total Bilirubin 0.2 mg/dL (0.3-1.2)
--- NOTE | 2024-04-14 21:06 | P.PN ---
Subjective Patient seen and evaluated at bedside. denies abdominal pain admits to some nausea but tolerating water Objective - Vital Signs Vital signs: Vital Signs Temp 98.5 F 04/14/24 15:00 Pulse 92 04/14/24 15:00 Resp 14 04/14/24 15:00 BP 131/85 04/14/24 15:00 Pulse Ox 95 04/14/24 15:00 FiO2 Intake & Output 04/14/24 04/14/24 04/15/24 06:59 18:59 06:59 Intake Total 221 Balance 221 Intake: Oral 221 Other: # Voids 1 3 - Exam gen: nad cv; rrr pul: non labored breathing abd: soft, non tender, non distended, surgical incisions c/d/i - Labs CBC & Chem 7: 04/14/24 04:31 04/14/24 04:31 Labs: Abnormal Lab Results - Last 24 Hours (Table) 04/14/24 04/14/24 Range/Units 04:31 04:31 RBC 3.38 L (4.10-5.20) X 10*6/uL Hgb 9.3 L (12.0-15.0) g/dL Hct 30.1 L (37.2-46.3) % MCHC 30.9 L (32.0-37.0) g/dL RDW 19.0 H (11.5-14.5) % MPV 12.3 H (9.5-12.2) FL Potassium 3.2 L (3.5-5.5) mmol/L Anion Gap 13.10 H (4.00-12.00) mmol/L BUN <3.5 L (9.0-27.0) mg/dL Creatinine 0.5 L (0.6-1.5) mg/dL BUN/Creatinine Ratio <7.00 L (12.00-20.00) Ratio Calcium 8.3 L (8.7-10.3) mg/dL Total Bilirubin 0.2 L (0.3-1.2) mg/dL AST 40 H (13-35) U/L ALT 50 H (8-44) U/L Total Protein 5.0 L (6.2-8.2) g/dL Albumin 2.9 L (3.8-4.9) g/dL Albumin/Globulin Ratio 1.38 L (1.60-3.17) Ratio Assessment and Plan Assessment: 33-year-old female with abdominal pain. s/p sleeve gastrectomy Patient with ongoing dysphagia. Continue antiacid therapy. Continue anticoagulation -no intervention at this time Time with Patient: Less than 30
--- NOTE | 2024-04-15 09:58 | P.PN ---
Subjective Progress Note Date: 04/15/24 Principal diagnosis: Dysphagia Patient doing better today. Says her pain is improved. Tolerating liquid diet. No vomiting. She would like to try more to eat. Objective - Vital Signs Vital signs: Vital Signs Temp 98.9 F 04/15/24 07:00 Pulse 88 04/15/24 08:00 Resp 16 04/15/24 08:00 BP 132/87 04/15/24 07:00 Pulse Ox 96 04/15/24 07:00 FiO2 Intake & Output 04/14/24 04/15/24 04/15/24 18:59 06:59 18:59 Intake Total 221 Balance 221 Intake: Oral 221 Other: # Voids 3 4 - Exam Abdomen: Soft, nontender, nondistended - Labs CBC & Chem 7: 04/14/24 04:31 04/14/24 04:31 Labs: Abnormal Lab Results - Last 24 Hours (Table) 04/14/24 04/14/24 Range/Units 04:31 04:31 RBC 3.38 L (4.10-5.20) X 10*6/uL Hgb 9.3 L (12.0-15.0) g/dL Hct 30.1 L (37.2-46.3) % MCHC 30.9 L (32.0-37.0) g/dL RDW 19.0 H (11.5-14.5) % MPV 12.3 H (9.5-12.2) FL Potassium 3.2 L (3.5-5.5) mmol/L Anion Gap 13.10 H (4.00-12.00) mmol/L BUN <3.5 L (9.0-27.0) mg/dL Creatinine 0.5 L (0.6-1.5) mg/dL BUN/Creatinine Ratio <7.00 L (12.00-20.00) Ratio Calcium 8.3 L (8.7-10.3) mg/dL Total Bilirubin 0.2 L (0.3-1.2) mg/dL AST 40 H (13-35) U/L ALT 50 H (8-44) U/L Total Protein 5.0 L (6.2-8.2) g/dL Albumin 2.9 L (3.8-4.9) g/dL Albumin/Globulin Ratio 1.38 L (1.60-3.17) Ratio Assessment and Plan (1) Abdominal pain Narrative/Plan: Patient with intractable vomiting and dysphagia issues. Doing better today. Pain is less. She would like to try soft diet. Will advance diet at this time. If tolerating may discharge. Current Visit: Yes Status: Acute Code(s): R10.9 - UNSPECIFIED ABDOMINAL PAIN SNOMED Code(s): 08784016
[2024-04-15] MEDS: LORazepam 0.5 MG TAB PO PRN (22:06)
[2024-04-16] MEDS ORDERED: ASENAPINE 5 MG TAB SUBLINGUAL ONE (00:01)
[2024-04-16] MEDS ORDERED: ENOXAPARIN 100 MG/ML SYRINGE SQ ONE (00:01)
[2024-04-16] MEDS ORDERED: SODIUM CHLORIDE 0.9% 1,000 ML BAG ONE (00:01)
[2024-04-16 07:31] VITALS: BP 135/84; PULSE 94; RESP 14; TEMP 99.3
[2024-04-16] MEDS ORDERED: HYDROmorphone 0.5 MG/0.5 ML SYRINGE ONE ×4 (08:04→20:23)
[2024-04-16] MEDS ORDERED: FERROUS SULFATE 325 MG TAB PO ONE (10:20)
[2024-04-16] MEDS ORDERED: ONDANSETRON 4 MG/2 ML VIAL ONE ×2 (12:10→20:23)
[2024-04-16] MEDS ORDERED: SUCRALFATE 1 GM TAB ONE ×3 (13:48→20:01)
[2024-04-16] MEDS ORDERED: PANTOPRAZOLE 40 MG TABLET PO ONE (16:40)
[2024-04-16] MEDS ORDERED: LORazepam 0.5 MG TAB ONE (16:47)
[2024-04-16] MEDS ORDERED: traZODone HCL 50 MG TAB ONE (20:01)
[2024-04-16] MEDS ORDERED: ZOLPIDEM 5 MG TAB ONE (20:08)
[2024-04-16] MEDS ORDERED: LORazepam 1 MG TAB ONE (21:06)
[2024-04-17] MEDS ORDERED: ENOXAPARIN 100 MG/ML SYRINGE SQ ONE (00:01)
[2024-04-17] MEDS ORDERED: ASENAPINE 5 MG TAB SUBLINGUAL ONE (00:01)
[2024-04-17] MEDS ORDERED: HYDROmorphone 0.5 MG/0.5 ML SYRINGE ONE ×7 (01:35→23:26)
[2024-04-17] MEDS ORDERED: IPRATROPIUM-ALBUTEROL 3 ML NEB ONE ×2 (07:51→20:12)
[2024-04-17] MEDS ORDERED: ONDANSETRON 4 MG/2 ML VIAL ONE ×2 (08:38→16:52)
[2024-04-17] MEDS ORDERED: FERROUS SULFATE 325 MG TAB PO ONE (12:37)
[2024-04-17] MEDS ORDERED: SUCRALFATE 1 GM TAB ONE ×3 (12:37→20:20)
[2024-04-17] MEDS ORDERED: PANTOPRAZOLE 40 MG TABLET PO ONE ×2 (12:38→16:44)
[2024-04-17] MEDS ORDERED: LORazepam 0.5 MG TAB ONE ×2 (17:39→21:54)
[2024-04-17] MEDS ORDERED: traZODone HCL 50 MG TAB ONE (20:20)
[2024-04-17] MEDS ORDERED: ZOLPIDEM 5 MG TAB ONE (20:28)
[2024-04-18] MEDS ORDERED: ASENAPINE 5 MG TAB SUBLINGUAL ONE (00:01)
[2024-04-18] MEDS ORDERED: ENOXAPARIN 100 MG/ML SYRINGE SQ ONE (00:01)
[2024-04-18] MEDS ORDERED: HYDROmorphone 0.5 MG/0.5 ML SYRINGE ONE ×5 (02:48→21:07)
[2024-04-18] MEDS ORDERED: ONDANSETRON 4 MG/2 ML VIAL ONE ×2 (08:18→21:40)
[2024-04-18] MEDS ORDERED: FERROUS SULFATE 325 MG TAB PO ONE (08:18)
[2024-04-18] MEDS ORDERED: PANTOPRAZOLE 40 MG TABLET PO ONE (08:18)
[2024-04-18] MEDS ORDERED: SUCRALFATE 1 GM TAB ONE ×3 (08:19→17:03)
[2024-04-18] MEDS ORDERED: LORazepam 0.5 MG TAB ONE (17:04)
[2024-04-18] MEDS ORDERED: traZODone HCL 50 MG TAB ONE (20:34)
[2024-04-18] MEDS ORDERED: ZOLPIDEM 5 MG TAB ONE (20:38)
[2024-04-19] MEDS ORDERED: HYDROmorphone 0.5 MG/0.5 ML SYRINGE ONE ×6 (00:10→17:30)
[2024-04-19] MEDS ORDERED: PANTOPRAZOLE 40 MG TABLET PO ONE (05:57)
[2024-04-19] MEDS ORDERED: SUCRALFATE 1 GM TAB ONE (05:57)
[2024-04-19] MEDS ORDERED: FERROUS SULFATE 325 MG TAB PO ONE (07:32)
[2024-04-19] MEDS ORDERED: ACETAMINOPHEN TAB 325 MG TAB ONE (07:58)
[2024-04-19] MEDS ORDERED: ONDANSETRON 4 MG/2 ML VIAL ONE ×2 (07:58→16:18)
--- NOTE | 2024-05-09 12:09 | FL ---
EXAMINATION TYPE: FL small bowel follow through DATE OF EXAM: 05/09/2024 11:30 AM COMPARISON: CT 03/07/2024, 04/10/2024, subsequent upper gastrointestinal tract imaging 05/07/2024. INDICATION: Patient age:Female; 33 years old; Reason for study: emesis; TECHNIQUE: The procedure was explained and patient history elicited. All patient questions were ans wered prior to start of procedure. A business operations director radiograph of the abdomen was also reviewed. The patient was asked to ingest liquid Barium and incremental frontal abdominal radiographs were then taken until contrast was visualized in the cecum. Fluoroscopic time: None min Fluoroscopic images: None Radiographs taken: 7 DAP: None mGym2 FINDINGS: The business operations director abdominal radiograph demonstrates a normal bowel gas pattern without dilated loops of small or large bowel. There is no evidence of organomegaly or pneumoperitoneum. No abnormal calcifications . The visualized osseous structures are intact. There is contrast from prior study in the appendix an d cecum. Right upper quadrant cholecystectomy clips. Surgical changes to the gastric lumen. Contrast is seen extending from the duodenojejunal junction into the cecum after 5 hours, which is de layed.. 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 Finding seen on prior CT 04/10/2024. Subsequent imaging did not demonstrate this finding The small bowel follows norm al distribution and contour without any evidence of extraluminal or intraluminal irregularity. There is no displacement of bowel loops or additional evidence of extraluminal extravasation of contrast m aterial. Small bowel mucosal folds are felt to be within normal limits. 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 Finding was new from 03/07/2024. This is redemonstrated on dedicated small bowel foll ow-through. Findings suspicious for contained perforation. This is not seen on most recent subsequent 05/07/2024 study. Delayed transit of contrast through the small bowel contrast seen from the study 5 hours. Findings communicated to Dr. Liu on 05/09/2024 12:[address] Jose Christian.
== END 2024-04-19 18:29 | disposition home or self-care (01) ==
LOC: EC 12:36 → 6NMEDSUR 21:22
PROVIDERS: ADMIT Family Medicine; ATTEND Family Medicine
DX: R10.9 Unspecified abdominal pain (principal); R11.2 Nausea with vomiting, unspecified; R13.10 Dysphagia, unspecified; K21.9 Gastro-esophageal reflux disease without esophagitis; G47.30 Sleep apnea, unspecified; F31.9 Bipolar disorder, unspecified; F41.9 Anxiety disorder, unspecified; Z86.711 Personal history of pulmonary embolism; Z87.891 Personal history of nicotine dependence; Z98.84 Bariatric surgery status; Z79.01 Long term (current) use of anticoagulants; Z79.899 Other long term (current) drug therapy; Z88.5 Allergy status to narcotic agent; Z91.040 Latex allergy status
CPT/HCPCS: 36415; 80053 ×3; 82150; 83605; 83690; 85025 ×3; 81001; 81025; 76856; J2765; J2405 ×3; J1650 ×2; J3490; J1170 ×5; J3480; J2470; 74250; 96361; 96365; 96366; 96372; 96375; 96376; 99285

== ENCOUNTER 2024-04-22 17:50 | Emergency (ER) | payer OTHER ==
[2024-04-22] MEDS ORDERED: HYDROmorphone 0.5 MG/0.5 ML SYRINGE ONE (20:12)
[2024-04-22] MEDS ORDERED: KETOROLAC 15 MG/ML 1 ML VIAL ONE (20:12)
[2024-04-22] MEDS ORDERED: METOCLOPRAMIDE 5 MG/ML 2 ML VIAL ONE (20:12)
[2024-04-22] MEDS ORDERED: SODIUM CHLORIDE 0.9% 1,000 ML BAG ONE (20:15)
[2024-04-22] MEDS ORDERED: FAMOTIDINE 20 MG/2 ML VIAL ONE (21:50)
[2024-04-22] MEDS ORDERED: hydrOXYzine pamoate 25 MG CAP ONE (22:59)
[2024-04-22] MEDS ORDERED: HYDROmorphone 1 MG/ML 1 ML SYRINGE ONE (23:45)
== END 2024-04-23 01:22 | disposition home or self-care (01) ==
LOC: EC 17:50
DX: R10.9 Unspecified abdominal pain (principal)
CPT/HCPCS: 96361; 96374; 99284

== ENCOUNTER 2024-04-24 20:22 | Emergency (ER) | payer OTHER ==
[2024-04-24] MEDS ORDERED: PANTOPRAZOLE 40 MG/10 ML VIAL ONE (21:42)
[2024-04-24] MEDS ORDERED: KETOROLAC 15 MG/ML 1 ML VIAL ONE (21:42)
[2024-04-24] MEDS ORDERED: METOCLOPRAMIDE 5 MG/ML 2 ML VIAL ONE (21:42)
[2024-04-24] MEDS ORDERED: HYDROmorphone 1 MG/ML 1 ML SYRINGE ONE (21:42)
[2024-04-24] MEDS ORDERED: SODIUM CHLORIDE 0.9% 1,000 ML BAG ONE (21:45)
[2024-04-25] MEDS ORDERED: METOCLOPRAMIDE 5 MG/ML 2 ML VIAL ONE (00:38)
[2024-04-25] MEDS ORDERED: HYDROmorphone 1 MG/ML 1 ML SYRINGE ONE (00:38)
== END 2024-04-25 00:41 | disposition home or self-care (01) ==
LOC: EC 20:22
CPT/HCPCS: 96361; 96374; 96375; 99284

== ENCOUNTER 2024-04-25 17:37 | Emergency (ER) | payer OTHER ==
[2024-04-25] MEDS ORDERED: SODIUM CHLORIDE 0.9% 1,000 ML BAG ONE (20:30)
[2024-04-25] MEDS ORDERED: SODIUM CHLORIDE 0.9% 500 ML BAG ONE (20:30)
[2024-04-25] MEDS ORDERED: HYDROmorphone 1 MG/ML 1 ML SYRINGE ONE ×3 (20:37→23:00)
[2024-04-25] MEDS ORDERED: droPERidol 5 MG/2 ML VIAL ONE (20:38)
== END 2024-04-25 23:09 | disposition home or self-care (01) ==
LOC: EC 17:37
CPT/HCPCS: 96361; 96374; 96375; 96376; 99283

== ENCOUNTER 2024-05-04 03:23 | Inpatient (IN) | payer OTHER ==
[~2024-05-04 03:23] MED LIST changes: +HYDROmorphone 1 MG/ML 1 ML SYRINGE ONE; +KETOROLAC 15 MG/ML 1 ML VIAL ONE; +METOCLOPRAMIDE 5 MG/ML 2 ML VIAL ONE; +SODIUM CHLORIDE 0.9% 1,000 ML BAG ONE; -SODIUM CHLORIDE 0.9% 500 ML 500 ML in EMPTY BAG 1 BAG IV PRN
[2024-05-04] MEDS ORDERED: POTASSIUM CHLORIDE ER 20 MEQ TAB.ER PO ONE (04:00)
[2024-05-04] MEDS ORDERED: HYDROmorphone 1 MG/ML 1 ML SYRINGE ONE ×5 (06:30→21:13)
[2024-05-04] MEDS ORDERED: ONDANSETRON 4 MG/2 ML VIAL ONE (10:55)
[2024-05-04] MEDS ORDERED: KETOROLAC 15 MG/ML 1 ML VIAL ONE ×2 (15:04→19:40)
[2024-05-04] MEDS ORDERED: PANTOPRAZOLE 40 MG TABLET PO ONE (19:37)
[2024-05-04] MEDS ORDERED: ZOLPIDEM 5 MG TAB ONE (19:38)
[2024-05-04] MEDS ORDERED: SUCRALFATE 1 GM TAB ONE (19:38)
[2024-05-04] MEDS ORDERED: traZODone HCL 50 MG TAB ONE (19:39)
[2024-05-04] MEDS ORDERED: QUEtiapine 25 MG TAB ONE (19:39)
[2024-05-04] MEDS ORDERED: LORazepam 1 MG TAB ONE (19:43)
[2024-05-05] MEDS ORDERED: HYDROmorphone 1 MG/ML 1 ML SYRINGE ONE ×4 (02:24→12:34)
[2024-05-05] MEDS ORDERED: ONDANSETRON 4 MG/2 ML VIAL ONE (09:31)
[2024-05-05] MEDS ORDERED: PANTOPRAZOLE 40 MG TABLET PO ONE (09:31)
[2024-05-05] MEDS ORDERED: LORazepam 1 MG TAB ONE (09:32)
[2024-05-05] MEDS ORDERED: SUCRALFATE 1 GM TAB ONE (12:34)
[2024-05-05] MEDS ORDERED: NALOXONE 0.4 MG/ML 1 ML VIAL IV PRN (19:31)
[2024-05-05] MEDS ORDERED: ZOLPIDEM 5 MG TAB ONE (22:16)
[2024-05-05] MEDS ORDERED: IBUPROFEN 400 MG TAB PO PRN (23:58)
[2024-05-05] MEDS ORDERED: ACETAMINOPHEN TAB 325 MG TAB PO PRN (23:58)
[2024-05-06 04:41] LABS: ALT 25 U/L (4-34); AST 40 U/L (14-36); African American GFR (CKD) >90 (>60 ml/min/1.73 sqM); Albumin 2.5 g/dL (3.5-5.0); Albumin/Globulin Ratio 0.9; Alkaline Phosphatase 59 U/L (38-126); Anion Gap 1 mmol/L; Blood Urea Nitrogen <2 mg/dL (7-17); Calcium 8.7 mg/dL (8.4-10.2); Carbon Dioxide 28 mmol/L (22-30); Chloride 107 mmol/L (98-107); Globulin 2.7 g/dL; Glucose 94 mg/dL (74-99); Magnesium 1.5 mg/dL (1.6-2.3); Non-African American GFR(CKD) >90 (>60 ml/min/1.73 sqM); Potassium 3.3 mmol/L (3.5-5.1); Sodium 136 mmol/L (137-145); Total Bilirubin 0.4 mg/dL (0.2-1.3); Total Protein 5.2 g/dL (6.3-8.2)
[2024-05-06] MEDS: SODIUM CHLORIDE 0.9% 1,000 ML IV SCH (05:11)
[2024-05-06] MEDS: HYDROmorphone 1 MG/ML 1 ML SYRINGE IVP PRN (05:21)
[2024-05-06 06:16] LABS: Anisocytosis Slight; Basophils % (A) 0 %; Eosinophils # (A) 0.3 k/uL (0-0.7); Eosinophils % (A) 5 %; HGB 10.9 gm/dL (11.4-16.0); Hypochromasia Marked; Lymphocytes # (A) 2.1 k/uL (1.0-4.8); Lymphocytes % (A) 36 %; MCH 28.6 pg (25.0-35.0); MCHC 31.1 g/dL (31.0-37.0); Mean Platelet Volume 10.1; Monocytes # (A) 0.4 k/uL (0-1.0); Monocytes % (A) 6 %; Neutrophils # (A) 3.1 k/uL (1.3-7.7); Neutrophils % (A) 52 %; Platelet Count 208 k/uL (150-450); RBC 3.81 m/uL (3.80-5.40); RDW 16.8 % (11.5-15.5); WBC 5.9 k/uL (3.8-10.6)
[2024-05-06] MEDS: PANTOPRAZOLE 40 MG TABLET PO SCH (06:47)
[2024-05-06] MEDS: SUCRALFATE 1 GM TAB PO SCH (06:47)
[2024-05-06] MEDS: ONDANSETRON 4 MG/2 ML VIAL IVP PRN (06:50)
[2024-05-06] MEDS: LORazepam 1 MG TAB PO SCH (08:17)
--- NOTE | 2024-05-06 08:25 | P.PN ---
Progress Note - Text Progress Note Date: 05/06/24 Patient states she feels about the same as yesterday. She has had some minimal epigastric Jose pain she did tolerate some full liquids yesterday. On exam vital signs appear stable. Abdomen soft. Status post sleeve gastrectomy with intermittent dysphagia. Patient is being seen at [facility] for conversion to gastric bypass. My recommendation would be to transfer to [facility] in order to get her bypass conversion completed sooner. There is no acute surgical intervention planned currently.
[2024-05-06] MEDS: ZOLPIDEM 5 MG TAB PO SCH (21:39)
[2024-05-06] MEDS: traZODone HCL 50 MG TAB PO SCH (21:39)
[2024-05-06] MEDS: SAPHRIS PO SCH (21:47)
[2024-05-06] MEDS: QUEtiapine 100 MG TAB PO SCH (21:49)
[2024-05-07] MEDS: KETOROLAC 15 MG/ML 1 ML VIAL IVP PRN (05:33)
[2024-05-07 10:17] LABS: Anisocytosis Slight; Basophils % (A) 0 %; Eosinophils # (A) 0.1 k/uL (0-0.7); Eosinophils % (A) 2 %; HCT 36.2 % (34.0-46.0); HGB 11.2 gm/dL (11.4-16.0); Hypochromasia Marked; Lymphocytes % (A) 36 %; MCH 28.5 pg (25.0-35.0); MCHC 30.8 g/dL (31.0-37.0); MCV 92.3 fL (80.0-100.0); Mean Platelet Volume 9.8; Monocytes # (A) 0.3 k/uL (0-1.0); Monocytes % (A) 5 %; Neutrophils # (A) 3.1 k/uL (1.3-7.7); Neutrophils % (A) 56 %; Platelet Count 212 k/uL (150-450); RBC 3.92 m/uL (3.80-5.40); RDW 16.5 % (11.5-15.5); WBC 5.7 k/uL (3.8-10.6)
[2024-05-07 10:32] LABS: African American GFR (CKD) >90 (>60 ml/min/1.73 sqM); Anion Gap 1 mmol/L; Blood Urea Nitrogen 3 mg/dL (7-17); Calcium 8.9 mg/dL (8.4-10.2); Carbon Dioxide 28 mmol/L (22-30); Chloride 109 mmol/L (98-107); Glucose 87 mg/dL (74-99); Magnesium 1.6 mg/dL (1.6-2.3); Non-African American GFR(CKD) >90 (>60 ml/min/1.73 sqM); Potassium 3.5 mmol/L (3.5-5.1); Sodium 138 mmol/L (137-145)
[2024-05-07] MEDS: HYDROmorphone 1 MG/ML 1 ML SYRINGE ONE ×10 (11:20→11:37)
[2024-05-07] MEDS: ONDANSETRON 4 MG/2 ML VIAL ONE ×2 (11:21→11:35)
[2024-05-07] MEDS: PANTOPRAZOLE 40 MG TABLET PO ONE ×3 (11:21→11:36)
[2024-05-07] MEDS: KETOROLAC 15 MG/ML 1 ML VIAL ONE ×3 (11:21→11:37)
[2024-05-07] MEDS: LORazepam 1 MG TAB ONE ×3 (11:22→11:36)
[2024-05-07] MEDS: ZOLPIDEM 5 MG TAB ONE (11:35)
[2024-05-07 11:39] VITALS: BMI 38.8
--- NOTE | 2024-05-07 12:03 | P.PN ---
Subjective Progress Note Date: 05/07/24 CHIEF COMPLAINT: Dysphagia HISTORY OF PRESENT ILLNESS: Patient reports that she feels the same. She was able to tolerate some full liquids. Continues to have epigastric pain and intermittent dysphagia. Vital stable. WBC 5.7 Hgb 11.2 platelets 212 sodium is 138 potassium 3.5 creatinine 0.48 magnesium 1.6 PHYSICAL EXAM: VITAL SIGNS: Reviewed. GENERAL: no acute distress. ABDOMEN: Soft. Nondistended. ASSESSMENT: 1. Intermittent dysphagia 2. Status post prior sleeve gastrectomy 3. Hypokalemia and hypomagnesemia PLAN: -Upper GI ordered for evaluation of patient's dysphagia. -Recommend transfer to [facility] for conversion to gastric bypass -No acute surgical intervention planned -Replace electrolytes -Check CBC and BMP in a.m. Physician Paper Slitter note has been reviewed by physician. Signing provider agrees with the documented findings, assessment, and plan of care. Objective - Vital Signs Vital signs: Vital Signs Temp 98.2 F 05/07/24 08:10 Pulse 78 05/07/24 08:10 Resp 16 05/07/24 08:10 BP 119/81 05/07/24 08:10 Pulse Ox 98 05/07/24 08:10 FiO2 Intake & Output 05/06/24 05/07/24 05/07/24 18:59 06:59 18:59 Intake Total 200 Balance 200 Intake: Oral 200 Other: # Voids 3 1 - Labs CBC & Chem 7: 05/07/24 09:57 05/07/24 09:57
--- NOTE | 2024-05-07 12:59 | FL ---
EXAMINATION TYPE: FL UGI w esophagus DATE OF EXAM: 05/07/2024 12:40 PM CLINICAL INDICATION:Female, 33 years old with history of dysphagia, recent sleeve; COMPARISON: 04/09/2024 TECHNIQUE: The procedure was explained and patient history elicited. All patient questions were ans wered prior to start of procedure. A metallurgical specialist radiograph of the abdomen was also reviewed. Multiple flu oroscopic spot images of the esophagus, stomach and duodenum were obtained following ingestion of liq uid barium. Fluoroscopic time: 44 seconds Fluoroscopic images: 0 Radiographs taken: 63 DAP: Not recorded mGym2 FINDINGS: Post surgical changes to the stomach with surgical clips present. Free flow of contrast thr ough the esophagus into the gastric lumen and into the duodenum. There is narrowing of the lumen in t he lower proximal portion similar prior. No evidence for obstruction. Crystals were not utilized and degree of stenosis cannot definitively be ascertained. No evidence for aneurysmal dilation or extrava sation of contrast. IMPRESSION: Free flow of contrast through the esophagus into the stomach. There remains narrowing of the proximal sleeve portion not significantly changed from prior.There is no evidence for complete obstruction.
[2024-05-07] MEDS: POTASSIUM CHLORIDE ER 20 MEQ TAB.ER PO STA (13:32)
[2024-05-07] MEDS: MAGNESIUM SULFATE-D5W PMX 1 GM in DEXTROSE/WATER 1 100ML.BAG IVPB ONE (13:32)
[2024-05-08 09:47] LABS: BUN/Creat Ratio <7.00 Ratio (12.00-20.00); Blood Urea Nitrogen <3.5 mg/dL (9.0-27.0); Calcium 8.5 mg/dL (8.7-10.3); Carbon Dioxide 24.2 mmol/L (21.6-31.8); Chloride 110 mmol/L (96-109); Glucose 91 mg/dL (70-110); Magnesium 1.9 mg/dL (1.5-2.4); Potassium 3.6 mmol/L (3.5-5.5); Sodium 144 mmol/L (135-145)
--- NOTE | 2024-05-08 11:16 | P.PN ---
Subjective Progress Note Date: 05/08/24 CHIEF COMPLAINT: Dysphagia HISTORY OF PRESENT ILLNESS: Patient still complains of dysphagia and nausea. No vomiting. She was able to drink a little of the full liquids. She is having bowel movements. Upper GI reports free flow of contrast through the esophagus into the stomach. There remains narrowing of the proximal sleeve portion not significantly changed from prior. No evidence for complete obstruction. Afebrile. Sodium 144. Potassium 3.6 creatinine 0.5 magnesium 1.9 Patient seen and examined with Dr. Liu PHYSICAL EXAM: VITAL SIGNS: Reviewed. GENERAL: no acute distress. ABDOMEN: Soft. Nondistended. ASSESSMENT: 1. Intermittent dysphagia 2. Status post prior sleeve gastrectomy 3. Hypokalemia and hypomagnesemia improved PLAN: -Patient's upper GI shows no evidence of obstruction. Patient continues to choose not to eat. Dr. Liu recommends outpatient follow-up at [facility]. Patient is following at [facility] for possible conversion to gastric bypass. -No acute surgical intervention planned Physician Fabricator Artificial Breast note has been reviewed by physician. Signing provider agrees with the documented findings, assessment, and plan of care. Objective - Vital Signs Vital signs: Vital Signs Temp 97.9 F 05/08/24 07:49 Pulse 74 05/08/24 07:49 Resp 17 05/08/24 07:49 BP 121/85 05/08/24 07:49 Pulse Ox 95 05/08/24 07:49 FiO2 Intake & Output 05/07/24 05/08/24 05/08/24 18:59 06:59 18:59 Intake Total 200 Balance 200 Weight 96.3 kg Intake: Oral 200 Other: Voiding Method Toilet Toilet # Voids 2 - Labs CBC & Chem 7: 05/07/24 09:57 05/08/24 04:47 Labs: Abnormal Lab Results - Last 24 Hours (Table) 05/08/24 Range/Units 04:47 Chloride 110 H (96-109) mmol/L BUN <3.5 L (9.0-27.0) mg/dL Creatinine 0.5 L (0.6-1.5) mg/dL BUN/Creatinine Ratio <7.00 L (12.00-20.00) Ratio Calcium 8.5 L (8.7-10.3) mg/dL
[2024-05-08] MEDS: KETOROLAC 15 MG/ML 1 ML VIAL ONE (12:08)
[2024-05-08] MEDS: LORazepam 1 MG TAB ONE (12:08)
[2024-05-08] MEDS: HYDROmorphone 1 MG/ML 1 ML SYRINGE ONE ×2 (12:08)
[2024-05-08] MEDS: ONDANSETRON 4 MG/2 ML VIAL ONE (12:08)
[2024-05-08] MEDS: ENOXAPARIN 100 MG/ML SYRINGE SQ SCH (17:28)
--- NOTE | 2024-05-09 11:06 | P.PN ---
Subjective Progress Note Date: 05/09/24 CHIEF COMPLAINT: Dysphagia HISTORY OF PRESENT ILLNESS: Patient continues to complain of nausea. She has been using IV narcotics. She is showing evidence of pain seeking behavior. Upper GI showed no evidence of obstruction. Patient is not following the diet. She is eating potato chips and drinking carbonated beverages when she is supposed to be on a full liquid diet with no carbonated beverages. Upper GI reports free flow of contrast through the esophagus into the stomach. There remains narrowing of the proximal sleeve portion not significantly changed from prior. No evidence for complete obstruction. Afebrile. Patient seen and examined with Dr. Liu PHYSICAL EXAM: VITAL SIGNS: Reviewed. GENERAL: no acute distress. ABDOMEN: Soft. Nondistended. ASSESSMENT: 1. Intermittent dysphagia 2. Status post prior sleeve gastrectomy 3. Hypokalemia and hypomagnesemia improved 4. Pain seeking behavior. PLAN: -Recommend discharge from surgical standpoint. Patient is showing evidence of pain seeking behavior. Patient's upper GI shows no evidence of obstruction. Patient is not following the recommended diet. Recommend that patient follows up with [facility] outpatient. -Recommend discontinuing the narcotics Physician Oracle Specialist note has been reviewed by physician. Signing provider agrees with the documented findings, assessment, and plan of care. Objective - Vital Signs Vital signs: Vital Signs Temp 97.6 F 05/09/24 07:25 Pulse 72 05/09/24 07:25 Resp 16 05/09/24 07:25 BP 142/88 05/09/24 07:25 Pulse Ox 98 05/09/24 07:25 FiO2 Intake & Output 05/08/24 05/09/24 05/09/24 18:59 06:59 18:59 Other: Voiding Method Toilet Toilet # Voids 2 2 # Bowel Movements 1 - Labs CBC & Chem 7: 05/07/24 09:57 05/08/24 04:47
[2024-05-09] MEDS: HYDROmorphone 1 MG/ML 1 ML SYRINGE IVP PRN (15:35)
[2024-05-10] MEDS ORDERED: HYDROmorphone 1 MG/ML 1 ML SYRINGE ONE (00:57)
[2024-05-10 15:56] VITALS: BP 138/72; PULSE 72; RESP 15; TEMP 97.5
--- NOTE | 2024-05-10 17:03 | P.PN ---
Subjective Progress Note Date: 05/10/24 CHIEF COMPLAINT: Dysphagia HISTORY OF PRESENT ILLNESS: patient continues to play no dysphagia and nausea. Continues to have pain across upper abdomen requiring IV Dilaudid. Computed tomography scan abdomen and pelvis from April [address] worthington with the radiologist and there were concerns for a possible leak. Patient is being transferred to [facility]. Discussed case with transfer service.afebrile. Vital stable. Patient seen and examined with Dr. Worthington PHYSICAL EXAM: VITAL SIGNS: Reviewed. GENERAL: no acute distress. ABDOMEN: Soft. Nondistended. ASSESSMENT: 1. Intermittent dysphagia 2. Status post prior sleeve gastrectomyApril 2023 3. Hypokalemia and hypomagnesemia improved PLAN: -patient being transferred to [facility]. Physician Customer Care Voice Consultant note has been reviewed by physician. Signing provider agrees with the documented findings, assessment, and plan of care. Objective - Vital Signs Vital signs: Vital Signs Temp 98.0 F 05/10/24 07:19 Pulse 75 05/10/24 07:19 Resp 16 05/10/24 07:19 BP 126/82 05/10/24 07:19 Pulse Ox 99 05/10/24 07:19 FiO2 Intake & Output 05/09/24 05/10/24 05/10/24 18:59 06:59 18:59 Intake Total 800 Balance 800 Intake: Oral 800 Other: Voiding Method Toilet # Voids 3 - Labs CBC & Chem 7: 05/07/24 09:57 05/08/24 04:47
--- NOTE | 2024-05-15 11:52 | PN ---
PROGRESS NOTE SUBJECTIVE: 33-year-old female being transferred down to [facility] due to possible leak from status post Tawanda procedure with sleeve procedure done; progressive nausea, vomiting; stopped her Dilaudid. She is in a workup by Surgery to try to get her transferred down to the [facility]. She is only able to eat clear liquids. She vomits with any canned solid foods. OBJECTIVE: VITAL SIGNS: Temp 97.5, blood pressure 138/72, O2 97% on room air, pulse 72, respiratory rate 15. CARDIOVASCULAR: S1, S2. LUNGS: Transmitted upper sounds. GI: Soft. HEMATOLOGY: Negative Homans. PSYCH: Fair mood and affect. going to continue the transfer process. Advance diet as tolerated. Could try on Lovenox for PE prophylaxis as she had PE. Status post Tawanda. Replace electrolytes. Prognosis guarded. CHADD / GAGAN: [id number] /
--- NOTE | 2024-05-15 17:12 | PN ---
PROGRESS NOTE DATE OF SERVICE: 05/07/2024 SUBJECTIVE: white female, had upper GI test ordered with small-bowel follow-through. She is status post Tawanda surgery with esophageal dilation scheduled for reversal of Tawanda down the road. She has free flow of contrast into the esophagus and into the stomach and there remains a narrowing of the proximal sleeve portion, not changed from prior. There is no evidence for complete obstruction, but she continues to have nausea and vomiting, so she should need to wait for surgical recommendations on this prior to her reversal of her sleeve. PROGNOSIS: Guarded. MMODL / IJN: [id number] /
--- NOTE | 2024-06-08 14:35 | CONS ---
CONSULTATION CHIEF COMPLAINT: Dysphagia. HISTORY OF PRESENT ILLNESS: This is a female, who had gastric sleeve surgery performed several months ago. The patient has had issues with intermittent chronic dysphagia. She denies being seen at [facility]. The patient is being considered for possible conversion to Glenn- en-Y gastric bypass. The patient states she has had dysphagia and some mild abdominal pain. PAST MEDICAL HISTORY: Please see Nursing history. PHYSICAL EXAMINATION: VITAL SIGNS: Stable. ABDOMEN: Soft. There is no tenderness. There is no rebound or guarding. IMPRESSION AND PLAN: Chronic dysphagia related to sleep. The patient will have an esophagram, upper GI performed today. MMODL / IJN: [id number] /
--- NOTE | 2024-06-08 14:37 | PN ---
PROGRESS NOTE DATE OF SERVICE: 05/05/2024 The patient feels better today. PHYSICAL EXAMINATION: VITAL SIGNS: Stable. ABDOMEN: Soft. The patient will be started on full liquid diet. MMODL / IJN: [id number] /
--- NOTE | 2024-06-08 14:37 | HP ---
HISTORY AND PHYSICAL This female came to the hospital for a progressive nausea, vomiting, dehydration status post Tawanda procedure with one surgery already for esophageal dilation and she was doing home TPN for a while. She was seen by Surgery last week. She was sent home as she was stable. She started nausea, vomiting again, at which time, she came right back to the hospital. She is scheduled for a possible Tawanda reversal down next month somewhere in [place]. HOME MEDICATIONS: Include, 1. Lovenox 70 mg every 12 hours. 2. Ambien 5 mg at night. 3. Ativan 1 mg b.i.d. 4. Carafate 1 g q.6 h. 5. mg at night. 6. Prilosec 40 mg daily. 7. Trazodone 150 mg daily. REVIEW OF SYSTEMS: Otherwise besides nausea, vomiting, and abdominal pain is negative. PAST MEDICAL HISTORY: Tawanda procedure. She has asthma. She has pulmonary embolus status procedure, morbid obesity. GERD. Mood disorders, bipolar 2. EXAMINATION: VITAL SIGNS: Reviewed. CARDIOVASCULAR: S1, S2. LUNGS: Transmitted upper airway sounds. GI: Soft, distended. Obesity. NEUROLOGIC: Alert and oriented x3. PSYCH: Fair mood and affect. ASSESSMENT: Failed outpatient treatment for severe dehydration, malnutrition, progressive nausea, vomiting, status post Tawanda with esophageal dilation. Admit the patient. Rehydrate. Surgical consult. Oral intake per surgery and dietitian. PROGNOSIS: Guarded. Could resume home medications. MMODL / IJN: [id number] /
== END 2024-05-10 18:42 | disposition short-term general hospital (02) | DRG 252 ==
LOC: 4SSUR 03:23
PROVIDERS: ADMIT Family Medicine; ATTEND Family Medicine
DX: K95.89 Other complications of other bariatric procedure (principal); Y84.8 Other medical procedures as the cause of abnormal reaction of the patient, or of later complication, without mention of misadventure at the time of the procedure; E83.42 Hypomagnesemia; E87.6 Hypokalemia; R13.10 Dysphagia, unspecified; Z76.5 Malingerer [conscious simulation]; Z88.5 Allergy status to narcotic agent; Z91.040 Latex allergy status
CPT/HCPCS: 74240; 80048; 80053; 83735; 85025; 96360; 99285

== ENCOUNTER 2024-05-20 16:27 | Emergency (ER) | payer OTHER ==
[2024-05-20 16:31] VITALS: TEMP 98.2
[2024-05-20] MEDS: SODIUM CHLORIDE 0.9% 1,000 ML IV STA (16:57)
[2024-05-20] MEDS: ONDANSETRON 4 MG/2 ML VIAL IVP STA ×2 (16:57→19:26)
[2024-05-20] MEDS: HYDROmorphone 1 MG/ML 1 ML SYRINGE IVP STA ×2 (16:57→18:45)
--- NOTE | 2024-05-20 16:58 | ED ---
General Adult HPI - General Chief complaint: Nausea/Vomiting/Diarrhea Stated complaint: vomitting/lethargic Time Seen by Provider: 05/20/24 16:30 Source: patient Mode of arrival: ambulatory Limitations: no limitations - History of Present Illness Initial comments: Dictation was produced using [employer] dictation software. please excuse any grammatical, word or spelling errors. 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 States that the procedure was performed in December of this year. Patient states that she had seen her primary surgeon regarding this and plan was that patient would need a revision surgery done at [facility]. There is no timetable for when this procedure will be. Patient has been having diarrhea since the procedure. The ROS documented in this emergency department record has been reviewed and confirmed by me. Those systems with pertinent positive or negative responses have been documented in the HPI. All other systems are other negative and/or noncontributory. - Related Data Home Medications Medication Instructions Recorded Confirmed Asenapine [Saphris] 5 mg SUBLINGUAL HS 03/08/24 04/13/24 Ferrous Sulfate [Iron (65 MG 325 mg PO DAILY 04/04/24 04/13/24 Elemental)] LORazepam [Ativan] 0.5 mg PO BID PRN 04/04/24 04/13/24 Omeprazole [PriLOSEC] 20 mg PO AC-BID 04/04/24 04/13/24 Ondansetron Odt [Zofran ODT] 4 mg PO BID PRN 04/04/24 04/13/24 Potassium Chloride [Klor-Con M10] 10 meq PO DAILY 04/04/24 04/13/24 Sucralfate [Carafate] 1 gm PO ACHS 04/04/24 04/13/24 Enoxaparin [Lovenox] 105 mg SQ Q12H 04/13/24 04/13/24 Previous Rx's Medication Instructions Recorded traZODone HCL [Desyrel] 50 mg PO HS 30 Days #30 tab 04/06/24 Ibuprofen [Motrin] 400 mg PO Q6HR PRN tab 05/09/24 Allergies Allergy/AdvReac Type Severity Reaction Status Date / Time latex Allergy Rash/Hives Verified 05/20/24 16:30 morphine AdvReac Itching Verified 05/20/24 16:30 Review of Systems ROS Statement: Those systems with pertinent positive or pertinent negative responses have been documented in the HPI. ROS Other: All systems not noted in ROS Statement are negative. Past Medical History Past Medical History: GERD/Reflux, Sleep Apnea/CPAP/BIPAP Additional Past Medical History / Comment(s): iron defiency anemia, currently getting iron infusions, no cpap used, pulmonary embolism 02/13/24 History of Any Multi-Drug Resistant Organisms: None Reported Past Surgical History: Bariatric Surgery, Section, Cholecystectomy, Tubal Ligation, Uterine Ablation Additional Past Surgical History / Comment(s): 2008 AND 2015 (c/s) and 2010 (cholecyst). 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 Past Anesthesia/Blood Transfusion Reactions: No Reported Reaction Past Psychological History: Anxiety, Bipolar, Depression Smoking Status: Former smoker Past Alcohol Use History: None Reported Past Drug Use History: None Reported - Past Family History Mother Family Medical History: Asthma, COPD, Diabetes Mellitus, Hypertension Additional Family Medical History / Comment(s): depression, anxiety, sleep apnea, Father Family Medical History: Hypertension Additional Family Medical History / Comment(s): arthritis General Exam - General Exam Comments Initial Comments: PHYSICAL EXAM: General Impression: Alert and oriented x3, not in acute distress HEENT: Normocephalic atraumatic, extra-ocular movements intact, pupils equal and reactive to light bilaterally, mucous membranes moist. Cardiovascular: Heart regular rate and rhythm Chest: Able to complete full sentences, no retractions, no tachypnea Abdomen: abdomen soft, mild palpatory tenderness epigastrium, non-distended, no organomegaly Musculoskeletal: Pulses present and equal in all extremities, no peripheral edema Motor: no focal deficits noted Neurological: CN II-XII grossly intact, no focal motor or sensory deficits noted Skin: Intact with no visualized rashes Psych: Normal affect and mood Limitations: no limitations Course Vital Signs 05/20/24 05/20/24 05/20/24 16:29 16:40 18:02 Temperature 98.2 F Pulse Rate 107 H 111 H 101 H Respiratory 18 18 16 Rate Blood Pressure 121/82 135/106 134/98 O2 Sat by Pulse 99 95 97 Oximetry Medical Decision Making - Medical Decision Making Was pt. sent in by a medical professional or institution (, PA, DIRECTOR ENTERPRISE SALES, urgent care, hospital, or [facility]...) When possible be specific @ -No Did you speak to anyone other than the patient for history (EMS, parent, family, police, friend...)? What history was obtained from this source @ -No Did you review nursing and triage notes (agree or disagree)? Why? @ -I reviewed and agree with nursing and triage notes Were old charts reviewed (outside hosp., previous admission, EMS record, old EKG, old radiological studies, urgent care reports/EKG's, [facility] records)? Report findings @ -No old charts were reviewed Differential Diagnosis (chest pain, altered mental status, abdominal pain women, abdominal pain men, vaginal bleeding, musculoskeletal, weakness, fever, dyspnea, syncope, headache, dizziness, GI bleed, back pain, seizure, CVA, palpatations, mental health)? @ -Differential Abdominal Pain Women: Appendicitis, Cholecystitis, diverticulosis, ischemic bowel, pancreatitis, hepatitis, UTI, gastroenteritis, AAA, incarcerated hernia, bowel obstruction, constipation, inflammatory bowel, hepatitis, peptic ulcer disease, splenic infarction, perforated viscus, vulvitis, ovarian torsion, PID, kidney stone, placenta abruption, this is not meant to be an all-inclusive list EKG interpreted by me (3pts min.). @ -None done X-rays interpreted by me (1pt min.). @ -None done CT interpreted by me (1pt min.). @ -None done U/S interpreted by me (1pt. min.). @ -None done What testing was considered but not performed or refused? (CT, X-rays, U/S, labs)? Why? @ -None What meds were considered but not given or refused? Why? @ -None Was smoking cessation discussed for >3mins.? @ -No Were there social determinants of health that impacted care today? How? (Homelessness, low income, unemployed, alcoholism, drug addiction, trans portation, low edu. Level, literacy, decrease access to med. care, detention, rehab)? @ -No Was there de-escalation of care discussed even if they declined (Discuss DNR or withdrawal of care, Hospice)? DNR status @ -No What co-morbidities impacted this encounter? (DM, HTN, Smoking, COPD, CAD, Cancer, CVA, ARF, Chemo, Hep., AIDS, mental health diagnosis, sleep apnea, morbid obesity)? @ -None Was patient admitted / discharged? Hospital course, mention meds given and route, prescriptions, significant lab abnormalities, going to OR and other pertinent info. @ -33-year-old female presents emergency department for acute on chronic abdominal pain and intractable nausea. Vital signs stable. Patient is well- known to the emergency department for frequent visitations. Patient states she suffered complications from failed bariatric surgery. She does have established contact with Dr. [facility]. Laboratory evaluation is unremarkable. Disposition options were discussed with patient she would prefer to be transferred to [facility]. I did speak with Dr. Liu who recommends patient be transferred. Discussed with Dr. Harkins who is wanting to set patient care for transfer at [facility]. Patient will be a ER to ER transfer to [facility]. Did you discuss the management of the patient with other professionals (professionals i.e. , PA, DIRECTOR ENTERPRISE SALES, lab, RT, psych nurse, social group worker, readers' advisory service librarian, teacher, supervisor dog license officer, case management manager)? Give summary @ -see above Was critical care preformed (if so, how long)? @ -No Undiagnosed new problem with uncertain prognosis? @ -No Drug Therapy requiring intensive monitoring for toxicity (Heparin, Nitro, Insulin, Cardizem)? @ -No Were any procedures done? @ -No Diagnosis/symptom? Acute, or Chronic, or Acute on Chronic? Uncomplicated ( without systemic symptoms) or Complicated (systemic symptoms)? @ -Acute on chronic abdominal pain Side effects of treatment? @ -No Exacerbation, Progression, or Severe Exacerbation? @ -No Poses a threat to life or bodily function? How? (Chest pain, USA, NC, pneumonia, PE, COPD, DKA, ARF, appy, cholecystitis, CVA, Diverticulitis, Homicidal, Suicidal, threat to staff... and all critical care pts) @ -yes - Lab Data Result diagrams: 05/20/24 16:54 05/20/24 16:54 Lab Results 05/20/24 05/20/24 05/20/24 Range/Units 16:54 16:54 16:54 WBC 7.5 (3.8-10.6) k/uL RBC 4.88 (3.80-5.40) m/uL Hgb 13.3 (11.4-16.0) gm/dL Hct 43.4 (34.0-46.0) % MCV 88.9 (80.0-100.0) fL MCH 27.2 (25.0-35.0) pg MCHC 30.6 L (31.0-37.0) g/dL RDW 16.1 H (11.5-15.5) % Plt Count 241 (150-450) k/uL MPV 9.2 Neutrophils % 57 % Lymphocytes % 35 % Monocytes % 5 % Eosinophils % 1 % Basophils % 1 % Neutrophils # 4.3 (1.3-7.7) k/uL Lymphocytes # 2.7 (1.0-4.8) k/uL Monocytes # 0.4 (0-1.0) k/uL Eosinophils # 0.1 (0-0.7) k/uL Basophils # 0.0 (0-0.2) k/uL Hypochromasia Marked Anisocytosis Slight Sodium 142 (137-145) mmol/L Potassium 4.1 (3.5-5.1) mmol/L Chloride 107 (98-107) mmol/L Carbon Dioxide 22 (22-30) mmol/L Anion Gap 13 mmol/L BUN 9 (7-17) mg/dL Creatinine 0.47 L (0.52-1.04) mg/dL Est GFR (CKD-EPI)AfAm >90 (>60 ml/min/1.73 sqM) Est GFR (CKD-EPI)NonAf >90 (>60 ml/min/1.73 sqM) Glucose 92 (74-99) mg/dL Plasma Lactic Acid Case 1.0 (0.7-2.0) mmol/L Calcium 9.5 (8.4-10.2) mg/dL Total Bilirubin 0.6 (0.2-1.3) mg/dL AST 47 H (14-36) U/L ALT 23 (4-34) U/L Alkaline Phosphatase 50 (38-126) U/L Total Protein 7.3 (6.3-8.2) g/dL Albumin 3.9 (3.5-5.0) g/dL Lipase 102 (23-300) U/L Disposition Clinical Impression: Abdominal pain Disposition: OTHER INSTITUTION NOT DEFINED Condition: Fair Referrals: Justin Molina MD [Primary Care Provider] - 1-2 days Time of Disposition: 18:27 - Out of Hospital Transfer - Req. Specs Out of Hospital Transfer - Requested Specifics: Other Emergency Center ([facility])
[2024-05-20 17:04] LABS: Anisocytosis Slight; Basophils % (A) 1 %; Eosinophils # (A) 0.1 k/uL (0-0.7); Eosinophils % (A) 1 %; HCT 43.4 % (34.0-46.0); HGB 13.3 gm/dL (11.4-16.0); Hypochromasia Marked; Lymphocytes # (A) 2.7 k/uL (1.0-4.8); Lymphocytes % (A) 35 %; MCH 27.2 pg (25.0-35.0); MCHC 30.6 g/dL (31.0-37.0); MCV 88.9 fL (80.0-100.0); Mean Platelet Volume 9.2; Monocytes # (A) 0.4 k/uL (0-1.0); Monocytes % (A) 5 %; Neutrophils # (A) 4.3 k/uL (1.3-7.7); Neutrophils % (A) 57 %; Platelet Count 241 k/uL (150-450); RBC 4.88 m/uL (3.80-5.40); RDW 16.1 % (11.5-15.5); WBC 7.5 k/uL (3.8-10.6)
[2024-05-20 17:16] LABS: ALT 23 U/L (4-34); African American GFR (CKD) >90 (>60 ml/min/1.73 sqM); Albumin 3.9 g/dL (3.5-5.0); Anion Gap 13 mmol/L; Blood Urea Nitrogen 9 mg/dL (7-17); Calcium 9.5 mg/dL (8.4-10.2); Carbon Dioxide 22 mmol/L (22-30); Chloride 107 mmol/L (98-107); Glucose 92 mg/dL (74-99); Lipase 102 U/L (23-300); Non-African American GFR(CKD) >90 (>60 ml/min/1.73 sqM); Sodium 142 mmol/L (137-145); Total Bilirubin 0.6 mg/dL (0.2-1.3); Total Protein 7.3 g/dL (6.3-8.2)
[2024-05-20 17:17] LABS: AST 47 U/L (14-36); Alkaline Phosphatase 50 U/L (38-126); Potassium 4.1 mmol/L (3.5-5.1)
[2024-05-20 18:02] VITALS: RESP 16
[2024-05-20 19:28] VITALS: BP 149/91; PULSE 92
== END 2024-05-20 19:27 | disposition other institution (70) ==
LOC: EC 16:27
CPT/HCPCS: 36415; 80053; 83605; 83690; 85025; 96361; 96374; 96375; 96376; 99285

== ENCOUNTER 2024-06-20 11:38 | Emergency (ER) | payer OTHER ==
[2024-06-20 11:43] VITALS: TEMP 978
[2024-06-20] MEDS ORDERED: IOPAMIDOL CONTRAST (ORAL USE) VIAL PO PRN (12:14)
--- NOTE | 2024-06-20 12:20 | ED ---
General Adult HPI - General Chief complaint: Abdominal Pain Stated complaint: Post-op abd issue Time Seen by Provider: 06/20/24 12:06 Source: patient, RN notes reviewed, old records reviewed Mode of arrival: wheelchair Limitations: no limitations - History of Present Illness Initial comments: 33 yo female presents for evaluation of upper abdominal pain. Patient is postop bariatric surgery revision at [facility]. Patient believes she had gastric bypa ss but is uncertain exactly what procedure was done. This was performed laparoscopically. Has had pain since the surgery on June 11 but over the past 24 hours her abdominal pain increased. No measured fever. She has nausea as well. Pain is located in the upper abdomen. She states she is passing gas and moving her bowels. - Related Data Home Medications Medication Instructions Recorded Confirmed Asenapine [Saphris] 5 mg SUBLINGUAL HS 03/08/24 04/13/24 Ferrous Sulfate [Iron (65 MG 325 mg PO DAILY 04/04/24 04/13/24 Elemental)] LORazepam [Ativan] 0.5 mg PO BID PRN 04/04/24 04/13/24 Omeprazole [PriLOSEC] 20 mg PO AC-BID 04/04/24 04/13/24 Ondansetron Odt [Zofran ODT] 4 mg PO BID PRN 04/04/24 04/13/24 Potassium Chloride [Klor-Con M10] 10 meq PO DAILY 04/04/24 04/13/24 Sucralfate [Carafate] 1 gm PO ACHS 04/04/24 04/13/24 Enoxaparin [Lovenox] 105 mg SQ Q12H 04/13/24 04/13/24 Previous Rx's Medication Instructions Recorded traZODone HCL [Desyrel] 50 mg PO HS 30 Days #30 tab 04/06/24 Ibuprofen [Motrin] 400 mg PO Q6HR PRN tab 05/09/24 Ondansetron Odt [Zofran Odt] 4 mg PO Q8HR PRN #10 tab 06/20/24 Allergies Allergy/AdvReac Type Severity Reaction Status Date / Time latex Allergy Rash/Hives Verified 06/20/24 11:40 morphine AdvReac Itching Verified 06/20/24 11:40 Review of Systems ROS Statement: Those systems with pertinent positive or pertinent negative responses have been documented in the HPI. ROS Other: All systems not noted in ROS Statement are negative. Past Medical History Past Medical History: GERD/Reflux, Sleep Apnea/CPAP/BIPAP Additional Past Medical History / Comment(s): iron defiency anemia, currently getting iron infusions, no cpap used, pulmonary embolism 02/13/24 History of Any Multi-Drug Resistant Organisms: None Reported Past Surgical History: Bariatric Surgery, Section, Cholecystectomy, Tubal Ligation, Uterine Ablation Additional Past Surgical History / Comment(s): 2008 AND 2015 (c/s) and 2010 (cholecyst). 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 Past Anesthesia/Blood Transfusion Reactions: No Reported Reaction Past Psychological History: Anxiety, Bipolar, Depression Smoking Status: Former smoker Past Alcohol Use History: None Reported Past Drug Use History: None Reported - Past Family History Mother Family Medical History: Asthma, COPD, Diabetes Mellitus, Hypertension Additional Family Medical History / Comment(s): depression, anxiety, sleep apnea, Father Family Medical History: Hypertension Additional Family Medical History / Comment(s): arthritis General Exam Limitations: no limitations General appearance: alert, in no apparent distress Head exam: Present: atraumatic, normocephalic Eye exam: Present: normal appearance, PERRL ENT exam: Present: normal exam Neck exam: Present: normal inspection. Absent: tenderness, meningismus Respiratory exam: Present: normal lung sounds bilaterally. Absent: respiratory distress, wheezes Cardiovascular Exam: Present: normal rhythm, tachycardia GI/Abdominal exam: Present: soft, tenderness, other (Incisions are well-healed). Absent: distended Extremities exam: Present: normal inspection, normal capillary refill Neurological exam: Present: alert, oriented X3, CN II-XII intact. Absent: motor sensory deficit Skin exam: Present: warm, dry, intact. Absent: cyanosis, diaphoretic Course Vital Signs 06/20/24 06/20/24 06/20/24 11:40 13:43 15:05 Temperature 978 F H Pulse Rate 109 H 80 94 Respiratory 18 20 16 Rate Blood Pressure 133/92 140/80 133/91 O2 Sat by Pulse 98 98 98 Oximetry 06/20/24 15:41 Temperature Pulse Rate 75 Respiratory 20 Rate Blood Pressure 130/89 O2 Sat by Pulse 98 Oximetry Medical Decision Making - Medical Decision Making Was pt. sent in by a medical professional or institution (, PA, HADOOP ENGINEER, urgent care, hospital, or retirement...) When possible be specific @ -No Did you speak to anyone other than the patient for history (EMS, parent, family, police, friend...)? What history was obtained from this source @ -No Did you review nursing and triage notes (agree or disagree)? Why? @ -I reviewed and agree with nursing and triage notes Were old charts reviewed (outside hosp., previous admission, EMS record, old EKG, old radiological studies, urgent care reports/EKG's, retirement records)? Report findings @ -No old charts were reviewed Differential Abdominal Pain Women: Appendicitis, Cholecystitis, diverticulosis, ischemic bowel, pancreatitis, hepatitis, UTI, gastroenteritis, AAA, incarcerated hernia, bowel obstruction, constipation, inflammatory bowel, hepatitis, peptic ulcer disease, splenic infarction, perforated viscus, vulvitis, ovarian torsion, PID, kidney stone, placenta abruption, this is not meant to be an all-inclusive list EKG interpreted by me (3pts min.). @ -As above X-rays interpreted by me (1pt min.). @ -None done CT interpreted by me (1pt min.). @ -[CT of the abdomen pelvis with IV and oral contrast showing postsurgical changes, no identified abscess or intraperitoneal free air. U/S interpreted by me (1pt. min.). @ -None done What testing was considered but not performed or refused? (CT, X-rays, U/S, labs)? Why? @ -None What meds were considered but not given or refused? Why? @ -None Did you discuss the management of the patient with other professionals ( professionals i.e. , PA, HADOOP ENGINEER, lab, RT, psych nurse, psych social worker, die set up worker, teacher, loan service officer, immigration case manager)? Give summary @ -No Was smoking cessation discussed for >3mins.? @ -No Was critical care preformed (if so, how long)? @ -No Were there social determinants of health that impacted care today? How? (Homelessness, low income, unemployed, alcoholism, drug addiction, transportation, low edu. Level, literacy, decrease access to med. care, retirement, rehab)? @ -No Was there de-escalation of care discussed even if they declined (Discuss DNR or withdrawal of care, Hospice)? DNR status @ -No What co-morbidities impacted this encounter? (DM, HTN, Smoking, COPD, CAD, Cancer, CVA, ARF, Chemo, Hep., AIDS, mental health diagnosis, sleep apnea, morbid obesity)? @ -None Was patient admitted / discharged? Hospital course, mention meds given and route, prescriptions, significant lab abnormalities, going to OR and other pertinent info. @ -33-year-old female with recent laparoscopic surgery for gastric bypass revision with abdominal pain. Patient afebrile, vital signs stable. Given anti emetic, pain medication and IV fluids. She has a mild leukocytosis, stable hemoglobin, she is acidotic without lactic acidosis, urinalysis is contaminated but shows significant ketones. Feels better after IV fluids and pain medication. She states she will contact her surgeon tomorrow regarding her symptoms. Stable for discharge at this time. Undiagnosed new problem with uncertain prognosis? @ -No Drug Therapy requiring intensive monitoring for toxicity (Heparin, Nitro, Insulin, Cardizem)? @ -No Were any procedures done? @ -No Diagnosis/symptom? @ -Postoperative abdominal pain, dehydration Acute, or Chronic, or Acute on Chronic? @ -Acute Uncomplicated (without systemic symptoms) or Complicated (systemic symptoms)? @ -Default Side effects of treatment? @ -No Exacerbation, Progression, or Severe Exacerbation? @ -No Poses a threat to life or bodily function? How? (Chest pain, USA, ND, pneumonia, PE, COPD, DKA, ARF, appy, cholecystitis, CVA, Diverticulitis, Homicidal, Suicidal, threat to staff... and all critical care pts) @Low risk at this time - Lab Data Result diagrams: 06/20/24 13:10 06/20/24 13:10 Lab Results 06/20/24 06/20/24 06/20/24 Range/Units 12:57 13:10 13:10 WBC 12.6 H (3.8-10.6) k/uL RBC 4.76 (3.80-5.40) m/uL Hgb 12.9 (11.4-16.0) gm/dL Hct 42.9 (34.0-46.0) % MCV 90.0 (80.0-100.0) fL MCH 27.1 (25.0-35.0) pg MCHC 30.1 L (31.0-37.0) g/dL RDW 17.6 H (11.5-15.5) % Plt Count 313 (150-450) k/uL MPV 8.4 Neutrophils % 72 % Lymphocytes % 20 % Monocytes % 4 % Eosinophils % 2 % Basophils % 0 % Neutrophils # 9.1 H (1.3-7.7) k/uL Lymphocytes # 2.6 (1.0-4.8) k/uL Monocytes # 0.5 (0-1.0) k/uL Eosinophils # 0.3 (0-0.7) k/uL Basophils # 0.0 (0-0.2) k/uL Hypochromasia Marked Anisocytosis Slight PT (10.0-12.5) sec INR (<1.2) APTT (22.0-30.0) sec Sodium 140 (137-145) mmol/L Potassium 3.9 (3.5-5.1) mmol/L Chloride 109 H (98-107) mmol/L Carbon Dioxide 15 L (22-30) mmol/L Anion Gap 16 mmol/L BUN 4 L (7-17) mg/dL Creatinine 0.46 L (0.52-1.04) mg/dL Est GFR (CKD-EPI)AfAm >90 (>60 ml/min/1.73 sqM) Est GFR (CKD-EPI)NonAf >90 (>60 ml/min/1.73 sqM) Glucose 75 (74-99) mg/dL Plasma Lactic Acid Case (0.7-2.0) mmol/L Calcium 9.6 (8.4-10.2) mg/dL Total Bilirubin 0.6 (0.2-1.3) mg/dL AST 21 (14-36) U/L ALT 10 (4-34) U/L Alkaline Phosphatase 76 (38-126) U/L Total Protein 6.7 (6.3-8.2) g/dL Albumin 3.6 (3.5-5.0) g/dL Amylase 51 (30-110) U/L Lipase 54 (23-300) U/L Urine Color Yellow Urine Appearance Cloudy H (Clear) Urine pH 5.5 (5.0-8.0) Ur Specific [place] 1.028 (1.001-1.035) Urine Protein 1+ H (Negative) Urine Glucose (UA) Negative (Negative) Urine Ketones 4+ H (Negative) Urine Blood Moderate H (Negative) Urine Nitrite Negative (Negative) Urine Bilirubin 1+ H (Negative) Urine Urobilinogen 2.0 (<2.0) mg/dL Ur Leukocyte Esterase Negative (Negative) Urine RBC 3 (0-5) /hpf Urine WBC 6 H (0-5) /hpf Ur Squamous Epith Cells 63 H (0-4) /hpf Urine Bacteria Rare H (None) /hpf Urine Mucus Occasional H (None) /hpf 06/20/24 06/20/24 Range/Units 13:10 14:25 WBC (3.8-10.6) k/uL RBC (3.80-5.40) m/uL Hgb (11.4-16.0) gm/dL Hct (34.0-46.0) % MCV (80.0-100.0) fL MCH (25.0-35.0) pg MCHC (31.0-37.0) g/dL RDW (11.5-15.5) % Plt Count (150-450) k/uL MPV Neutrophils % % Lymphocytes % % Monocytes % % Eosinophils % % Basophils % % Neutrophils # (1.3-7.7) k/uL Lymphocytes # (1.0-4.8) k/uL Monocytes # (0-1.0) k/uL Eosinophils # (0-0.7) k/uL Basophils # (0-0.2) k/uL Hypochromasia Anisocytosis PT 11.4 (10.0-12.5) sec INR 1.0 (<1.2) APTT 24.9 (22.0-30.0) sec Sodium (137-145) mmol/L Potassium (3.5-5.1) mmol/L Chloride (98-107) mmol/L Carbon Dioxide (22-30) mmol/L Anion Gap mmol/L BUN (7-17) mg/dL Creatinine (0.52-1.04) mg/dL Est GFR (CKD-EPI)AfAm (>60 ml/min/1.73 sqM) Est GFR (CKD-EPI)NonAf (>60 ml/min/1.73 sqM) Glucose (74-99) mg/dL Plasma Lactic Acid Case 0.8 (0.7-2.0) mmol/L Calcium (8.4-10.2) mg/dL Total Bilirubin (0.2-1.3) mg/dL AST (14-36) U/L ALT (4-34) U/L Alkaline Phosphatase (38-126) U/L Total Protein (6.3-8.2) g/dL Albumin (3.5-5.0) g/dL Amylase (30-110) U/L Lipase (23-300) U/L Urine Color Urine Appearance (Clear) Urine pH (5.0-8.0) Ur Specific [place] (1.001-1.035) Urine Protein (Negative) Urine Glucose (UA) (Negative) Urine Ketones (Negative) Urine Blood (Negative) Urine Nitrite (Negative) Urine Bilirubin (Negative) Urine Urobilinogen (<2.0) mg/dL Ur Leukocyte Esterase (Negative) Urine RBC (0-5) /hpf Urine WBC (0-5) /hpf Ur Squamous Epith Cells (0-4) /hpf Urine Bacteria (None) /hpf Urine Mucus (None) /hpf Disposition Clinical Impression: Nausea and vomiting, Abdominal pain Disposition: HOME SELF-CARE Condition: Fair Instructions (If sedation given, give patient instructions): Abdominal Pain (ED) Additional Instructions: Please contact your surgeon tomorrow and inform him/her of your symptoms. Please return to the emergency department with worsening or changing symptoms. Prescriptions: Ondansetron Odt [Zofran Odt] 4 mg PO Q8HR PRN #10 tab PRN Reason: Vomiting Is patient prescribed a controlled substance at d/c from ED?: No Referrals: Justin Molina MD [Primary Care Provider] - 1-2 days Time of Disposition: 15:27
[2024-06-20] MEDS: SODIUM CHLORIDE 0.9% 1,000 ML IV STA (13:14)
[2024-06-20] MEDS: ONDANSETRON 4 MG/2 ML VIAL IVP STA (13:15)
[2024-06-20] MEDS: HYDROmorphone 1 MG/ML 1 ML SYRINGE IVP STA (13:16)
[2024-06-20 13:23] LABS: Anisocytosis Slight; Basophils % (A) 0 %; Eosinophils # (A) 0.3 k/uL (0-0.7); Eosinophils % (A) 2 %; HCT 42.9 % (34.0-46.0); HGB 12.9 gm/dL (11.4-16.0); Hypochromasia Marked; Lymphocytes # (A) 2.6 k/uL (1.0-4.8); Lymphocytes % (A) 20 %; MCH 27.1 pg (25.0-35.0); MCHC 30.1 g/dL (31.0-37.0); Mean Platelet Volume 8.4; Monocytes # (A) 0.5 k/uL (0-1.0); Monocytes % (A) 4 %; Neutrophils # (A) 9.1 k/uL (1.3-7.7); Neutrophils % (A) 72 %; Platelet Count 313 k/uL (150-450); RBC 4.76 m/uL (3.80-5.40); RDW 17.6 % (11.5-15.5); WBC 12.6 k/uL (3.8-10.6)
[2024-06-20 13:40] LABS: ALT 10 U/L (4-34); AST 21 U/L (14-36); African American GFR (CKD) >90 (>60 ml/min/1.73 sqM); Albumin 3.6 g/dL (3.5-5.0); Alkaline Phosphatase 76 U/L (38-126); Amylase 51 U/L (30-110); Anion Gap 16 mmol/L; Blood Urea Nitrogen 4 mg/dL (7-17); Calcium 9.6 mg/dL (8.4-10.2); Carbon Dioxide 15 mmol/L (22-30); Chloride 109 mmol/L (98-107); Glucose 75 mg/dL (74-99); Lipase 54 U/L (23-300); Non-African American GFR(CKD) >90 (>60 ml/min/1.73 sqM); Potassium 3.9 mmol/L (3.5-5.1); Sodium 140 mmol/L (137-145); Total Bilirubin 0.6 mg/dL (0.2-1.3); Total Protein 6.7 g/dL (6.3-8.2)
[2024-06-20 13:48] LABS: Appearance,Urine Cloudy (Clear); Bacteria,Urine Rare /hpf; Bilirubin,Urine 1+ (Negative); Blood,Urine Moderate (Negative); Color,Urine Yellow; Glucose,Urine (UA) Negative (Negative); Ketones,Urine 4+ (Negative); Leukocyte Esterase,Urine Negative (Negative); Mucus,Urine Occasional /hpf; Nitrite,Urine Negative (Negative); PH, Urine 5.5 (5.0-8.0); Protein,Urine 1+ (Negative); RBC,Urine 3 /hpf (0-5); Specific Gravity,Urine 1.028 (1.001-1.035); Squamous Epithelial Cell,Urine 63 /hpf (0-4); WBC,Urine 6 /hpf (0-5)
--- NOTE | 2024-06-20 14:07 | CT ---
EXAMINATION TYPE: CT abdomen pelvis w con CT DLP: 1045.9 mGycm, Automated exposure control for dose reduction was used. DATE OF EXAM: 06/20/2024 1:53 PM COMPARISON: CT abdomen pelvis 03/07/2024 CLINICAL INDICATION:Female, 33 years old with history of abdominal pain; recent bariatric surgery TECHNIQUE: Standard CT of the abdomen and pelvis following the administration of 100 cc of Isovue 3 00 IV contrast material and oral contrast. Coronal and sagittal reformats were performed. FINDINGS: LOWER CHEST: Linear atelectasis within the left lower lobe. ABDOMEN LIVER: Unremarkable GALLBLADDER AND BILE DUCTS: The gallbladder is surgically absent. No biliary ductal dilatation. PANCREAS: Unremarkable. SPLEEN: Unremarkable. ADRENAL GLANDS: Unremarkable. KIDNEYS AND URETERS: No evidence of hydronephrosis or renal calculus. The kidneys enhance symmetrical ly. Contrast is demonstrated within both collecting systems on the delayed phase. PELVIS BLADDER: Incompletely distended but grossly unremarkable. REPRODUCTIVE: Unremarkable. Previously seen left ovarian cystic lesion is not appreciated on today's exam. 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 No surroundi ng inflammatory changes. Enteric contrast reaches the mid small bowel. No focal bowel wall thickening or surrounding inflammatory change. Submucosal fat deposition of the right colon. The appendix is wi thin normal limits. No evidence of bowel obstruction. PERITONEUM: No evidence of pneumoperitoneum. Trace free fluid in the pelvic cul-de-sac. VASCULATURE: No evidence of aortic aneurysm. Right-sided pelvic phlebolith. MUSCULOSKELETAL: No acute osseous abnormalities LYMPH NODES: No gross evidence for lymphadenopathy. SOFT TISSUE/ABDOMINAL WALL: Minimal anasarca. IMPRESSION: 1. 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 2. Trace free fluid in the pelvic cul-de-sac which may be physiologic versus sequelae of ruptured ov apolinar cyst. [facility], , 06/20/2024 2:05 PM
[2024-06-20] MEDS ORDERED: SODIUM CHLORIDE 0.9% 1,000 ML IV ONE (14:27)
[2024-06-20 14:48] LABS: Partial Thromboplastin Time 24.9 sec (22.0-30.0); Prothrombin Time 11.4 sec (10.0-12.5)
[2024-06-20] MEDS: HYDROmorphone 0.5 MG/0.5 ML SYRINGE IVP STA (15:04)
[2024-06-20 15:42] VITALS: BP 130/89; PULSE 75; RESP 20
== END 2024-06-20 15:41 | disposition home or self-care (01) ==
LOC: EC 11:38
CPT/HCPCS: 36415; 74177; 80053; 81001; 82150; 83605; 83690; 85025; 85610; 85730; 96361; 96374; 96375; 96376; 99284

== ENCOUNTER 2024-06-22 13:44 | Emergency (ER) | payer OTHER ==
[2024-06-22 14:09] VITALS: RESP 18; TEMP 98.5
--- NOTE | 2024-06-22 14:48 | ED ---
Abdominal Pain HPI - General Chief Complaint: Abdominal Pain Stated Complaint: Post Op Comp Time Seen by Provider: 06/22/24 14:40 Source: patient, RN notes reviewed Mode of arrival: wheelchair Limitations: no limitations - History of Present Illness Initial Comments: 33-year-old female presenting for evaluation of epigastric pain x 3 days. States she had a gastric sleeve revision by surgeon at [facility] on June 11. She felt she was recovering well 3 days ago when she began to gradually experience a dull, constant pain in the epigastric area of abdomen. Did not endorse some nausea and vomiting as well. States she is able to tolerate orals, states food does not exacerbate symptoms. She is passing gas and moving her bowels, last bowel movement was yesterday and was normal. She was seen in the ER 2 days ago for same symptoms where CT abdomen was performed which was negative and she was told to follow-up with surgeon. Patient states she called surgeon's office but could not get a hold of. She does have a follow-up appointment in 6 days with surgeon. States her incision sites do not hurt and she does not believe they are infected, however she is having pain surrounding the incision sites. Denies fever, chills, shortness of breath. She also has a history of cholecystectomy, tubal ligation, and . - Related Data Home Medications Medication Instructions Recorded Confirmed Asenapine [Saphris] 5 mg SUBLINGUAL HS 03/08/24 04/13/24 Ferrous Sulfate [Iron (65 MG 325 mg PO DAILY 04/04/24 04/13/24 Elemental)] LORazepam [Ativan] 0.5 mg PO BID PRN 04/04/24 04/13/24 Omeprazole [PriLOSEC] 20 mg PO AC-BID 04/04/24 04/13/24 Ondansetron Odt [Zofran ODT] 4 mg PO BID PRN 04/04/24 04/13/24 Potassium Chloride [Klor-Con M10] 10 meq PO DAILY 04/04/24 04/13/24 Sucralfate [Carafate] 1 gm PO ACHS 04/04/24 04/13/24 Enoxaparin [Lovenox] 105 mg SQ Q12H 04/13/24 04/13/24 Previous Rx's Medication Instructions Recorded traZODone HCL [Desyrel] 50 mg PO HS 30 Days #30 tab 04/06/24 Ibuprofen [Motrin] 400 mg PO Q6HR PRN tab 05/09/24 Ondansetron Odt [Zofran Odt] 4 mg PO Q8HR PRN #10 tab 06/20/24 Allergies Allergy/AdvReac Type Severity Reaction Status Date / Time latex Allergy Rash/Hives Verified 06/20/24 11:40 morphine AdvReac Itching Verified 06/20/24 11:40 Review of Systems ROS Statement: Those systems with pertinent positive or pertinent negative responses have been documented in the HPI. ROS Other: All systems not noted in ROS Statement are negative. Past Medical History Past Medical History: GERD/Reflux, Sleep Apnea/CPAP/BIPAP Additional Past Medical History / Comment(s): iron defiency anemia, currently getting iron infusions, no cpap used, pulmonary embolism 02/13/24 History of Any Multi-Drug Resistant Organisms: None Reported Past Surgical History: Bariatric Surgery, Section, Cholecystectomy, Tubal Ligation, Uterine Ablation Additional Past Surgical History / Comment(s): 2008 AND 2015 (c/s) and 2010 (cholecyst). 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 gastric bypass 06/11/24 Past Anesthesia/Blood Transfusion Reactions: No Reported Reaction Past Psychological History: Anxiety, Bipolar, Depression Smoking Status: Former smoker Past Alcohol Use History: None Reported Past Drug Use History: None Reported - Past Family History Mother Family Medical History: Asthma, COPD, Diabetes Mellitus, Hypertension Additional Family Medical History / Comment(s): depression, anxiety, sleep apnea, Father Family Medical History: Hypertension Additional Family Medical History / Comment(s): arthritis General Exam Limitations: no limitations General appearance: alert, in no apparent distress Head exam: Present: atraumatic, normocephalic, normal inspection Respiratory exam: Present: normal lung sounds bilaterally. Absent: respiratory distress, wheezes, rales, rhonchi, stridor Cardiovascular Exam: Present: regular rate, normal rhythm, normal heart sounds. Absent: systolic murmur, diastolic murmur, rubs, gallop, clicks GI/Abdominal exam: Present: soft, tenderness (Mild epigastric tenderness to palpation), normal bowel sounds, other (Laparoscopic incision sites are clean dry intact, no drainage or surrounding erythema). Absent: distended, guarding, rebound, rigid Back exam: Absent: CVA tenderness (R), CVA tenderness (L) Neurological exam: Present: alert, oriented X3 Psychiatric exam: Present: normal affect, normal mood Skin exam: Present: warm, dry, intact, normal color. Absent: rash Course Vital Signs 06/22/24 06/22/24 06/22/24 14:04 15:56 19:23 Temperature 98.5 F Pulse Rate 116 H 76 Respiratory 18 18 18 Rate Blood Pressure 137/89 126/90 133/83 O2 Sat by Pulse 97 99 Oximetry 06/22/24 21:02 Temperature Pulse Rate 93 Respiratory 18 Rate Blood Pressure 144/94 O2 Sat by Pulse 98 Oximetry Medical Decision Making - Medical Decision Making Was pt. sent in by a medical professional or institution (STEPHY Wild, NAILING MACHINE FEEDER, urgent care, hospital, or retirement...) When possible be specific @ -No Did you speak to anyone other than the patient for history (EMS, parent, family, police, friend...)? What history was obtained from this source @ -No Did you review nursing and triage notes (agree or disagree)? Why? @ -I reviewed and agree with nursing and triage notes Were old charts reviewed (outside hosp., previous admission, EMS record, old EKG, old radiological studies, urgent care reports/EKG's, retirement records)? Report findings @ -Reviewed previous ER visit from 2 days ago including lab work and CT abdomen pelvis Differential Diagnosis (chest pain, altered mental status, abdominal pain women, abdominal pain men, vaginal bleeding, weakness, fever, dyspnea, syncope, h eadache, dizziness, GI bleed, back pain, seizure, CVA, palpatations, mental health, musculoskeletal)? @ -Differential Abdominal Pain Women: Appendicitis, Cholecystitis, diverticulosis, ischemic bowel, pancreatitis, hepatitis, UTI, gastroenteritis, AAA, incarcerated hernia, bowel obstruction, constipation, inflammatory bowel, hepatitis, peptic ulcer disease, splenic infarction, perforated viscus, vulvitis, ovarian torsion, PID, kidney stone, placenta abruption, this is not meant to be an all-inclusive list EKG interpreted by me (3pts min.). @ -None X-rays interpreted by me (1pt min.). @ -None done CT interpreted by me (1pt min.). @ -None done U/S interpreted by me (1pt. min.). @ -None done What testing was considered but not performed or refused? (CT, X-rays, U/S, labs)? Why? @ -Patient refused EKG. Imaging of abdomen considered however deferred due to patient had negative CT abdomen pelvis 2 days ago with same symptoms What meds were considered but not given or refused? Why? @ -None Did you discuss the management of the patient with other professionals (professionals i.e. Dr., PA, NAILING MACHINE FEEDER, lab, RT, psych nurse, family welfare social work professor, business management specialist, teacher, appeals officer, case advocate)? Give summary @ -No Was smoking cessation discussed for >3mins.? @ -No Was critical care preformed (if so, how long)? @ -No Were there social determinants of health that impacted care today? How? (Homelessness, low income, unemployed, alcoholism, drug addiction, transportation, low edu. Level, literacy, decrease access to med. care, group home, rehab)? @ -No Was there de-escalation of care discussed even if they declined (Discuss DNR or withdrawal of care, Hospice)? DNR status @ -No What co-morbidities impacted this encounter? (DM, HTN, Smoking, COPD, CAD, Cancer, CVA, ARF, Chemo, Hep., AIDS, mental health diagnosis, sleep apnea, morbid obesity)? @ -None Was patient admitted / discharged? Hospital course, mention meds given and route, prescriptions, significant lab abnormalities, going to OR and other pert inent info. @ -Discharged. This is a 33-year-old female presenting for epigastric pain x 3 days. Recently underwent gastric sleeve repair on 06-11-2024 at [facility]. She was seen in the ER 2 days ago where she underwent lab work and CT scan of abdomen pelvis which returned negative. She was advised to follow-up with her surgeon, however reports she cannot get ahold of him. She does have upcoming appointment with him next week. She is initially tachycardic which improves to 93 bpm upon reevaluation. Otherwise vital signs are within acceptable limits. Incision sites are clean dry and intact, no sign of bacterial infection. She was provided with IV fluids, analgesics, and antiemetics. Lab work including CBC, CMP, lactic acid, lipase unremarkable. White blood cell count stable at 9. Urine remarkable for 4+ ketones indicating dehydration. Results discussed with patient. There are no signs of emergent etiology causing symptoms. Advised close follow-up with surgeon. Return precautions discussed for supportive care. Patient shows understanding agrees with plan. Case was discussed with my ED attending Dr. Parra. Patient discharged in stable condition. Undiagnosed new problem with uncertain prognosis? @ -No Drug Therapy requiring intensive monitoring for toxicity (Heparin, Nitro, Insulin, Cardizem)? @ -No Were any procedures done? @ -No Diagnosis/symptom? @ -Postop complication Acute, or Chronic, or Acute on Chronic? @ -Acute Uncomplicated (without systemic symptoms) or Complicated (systemic symptoms)? @ -Uncomplicated Side effects of treatment? @ -No Exacerbation, Progression, or Severe Exacerbation? @ -No Poses a threat to life or bodily function? How? (Chest pain, [place], [place], pneumonia, PE, COPD, DKA, ARF, appy, cholecystitis, CVA, Diverticulitis, Homicidal, Suicidal, threat to staff... and all critical care pts) @ -Unlikely at this time - Lab Data Result diagrams: 06/22/24 15:59 06/22/24 15:59 Lab Results 06/22/24 06/22/24 06/22/24 Range/Units 15:59 15:59 15:59 WBC 9.2 (3.8-10.6) k/uL RBC 4.67 (3.80-5.40) m/uL Hgb 12.7 (11.4-16.0) gm/dL Hct 41.8 (34.0-46.0) % MCV 89.5 (80.0-100.0) fL MCH 27.1 (25.0-35.0) pg MCHC 30.3 L (31.0-37.0) g/dL RDW 17.8 H (11.5-15.5) % Plt Count 294 (150-450) k/uL MPV 8.8 Neutrophils % 73 % Lymphocytes % 20 % Monocytes % 4 % Eosinophils % 2 % Basophils % 0 % Neutrophils # 6.8 (1.3-7.7) k/uL Lymphocytes # 1.8 (1.0-4.8) k/uL Monocytes # 0.4 (0-1.0) k/uL Eosinophils # 0.2 (0-0.7) k/uL Basophils # 0.0 (0-0.2) k/uL Hypochromasia Marked Anisocytosis Slight Sodium 138 (137-145) mmol/L Potassium 4.1 (3.5-5.1) mmol/L Chloride 110 H (98-107) mmol/L Carbon Dioxide 18 L (22-30) mmol/L Anion Gap 10 mmol/L BUN 3 L (7-17) mg/dL Creatinine 0.42 L (0.52-1.04) mg/dL Est GFR (CKD-EPI)AfAm >90 (>60 ml/min/1.73 sqM) Est GFR (CKD-EPI)NonAf >90 (>60 ml/min/1.73 sqM) Glucose 66 L (74-99) mg/dL Plasma Lactic Acid Case 0.6 L (0.7-2.0) mmol/L Calcium 9.4 (8.4-10.2) mg/dL Total Bilirubin 0.5 (0.2-1.3) mg/dL AST 20 (14-36) U/L ALT 7 (4-34) U/L Alkaline Phosphatase 65 (38-126) U/L Total Protein 6.2 L (6.3-8.2) g/dL Albumin 3.5 (3.5-5.0) g/dL Lipase 56 (23-300) U/L Urine Color Urine Appearance (Clear) Urine pH (5.0-8.0) Ur Specific [place] (1.001-1.035) Urine Protein (Negative) Urine Glucose (UA) (Negative) Urine Ketones (Negative) Urine Blood (Negative) Urine Nitrite (Negative) Urine Bilirubin (Negative) Urine Urobilinogen (<2.0) mg/dL Ur Leukocyte Esterase (Negative) Urine RBC (0-5) /hpf Urine WBC (0-5) /hpf Ur Squamous Epith Cells (0-4) /hpf Urine Bacteria (None) /hpf Hyaline Casts (0-2) /lpf Urine Mucus (None) /hpf 06/22/24 Range/Units 18:12 WBC (3.8-10.6) k/uL RBC (3.80-5.40) m/uL Hgb (11.4-16.0) gm/dL Hct (34.0-46.0) % MCV (80.0-100.0) fL MCH (25.0-35.0) pg MCHC (31.0-37.0) g/dL RDW (11.5-15.5) % Plt Count (150-450) k/uL MPV Neutrophils % % Lymphocytes % % Monocytes % % Eosinophils % % Basophils % % Neutrophils # (1.3-7.7) k/uL Lymphocytes # (1.0-4.8) k/uL Monocytes # (0-1.0) k/uL Eosinophils # (0-0.7) k/uL Basophils # (0-0.2) k/uL Hypochromasia Anisocytosis Sodium (137-145) mmol/L Potassium (3.5-5.1) mmol/L Chloride (98-107) mmol/L Carbon Dioxide (22-30) mmol/L Anion Gap mmol/L BUN (7-17) mg/dL Creatinine (0.52-1.04) mg/dL Est GFR (CKD-EPI)AfAm (>60 ml/min/1.73 sqM) Est GFR (CKD-EPI)NonAf (>60 ml/min/1.73 sqM) Glucose (74-99) mg/dL Plasma Lactic Acid Case (0.7-2.0) mmol/L Calcium (8.4-10.2) mg/dL Total Bilirubin (0.2-1.3) mg/dL AST (14-36) U/L ALT (4-34) U/L Alkaline Phosphatase (38-126) U/L Total Protein (6.3-8.2) g/dL Albumin (3.5-5.0) g/dL Lipase (23-300) U/L Urine Color Yellow Urine Appearance Cloudy H (Clear) Urine pH 6.0 (5.0-8.0) Ur Specific [place] 1.024 (1.001-1.035) Urine Protein 1+ H (Negative) Urine Glucose (UA) Negative (Negative) Urine Ketones 4+ H (Negative) Urine Blood Trace H (Negative) Urine Nitrite Negative (Negative) Urine Bilirubin Negative (Negative) Urine Urobilinogen 2.0 (<2.0) mg/dL Ur Leukocyte Esterase Negative (Negative) Urine RBC 2 (0-5) /hpf Urine WBC 2 (0-5) /hpf Ur Squamous Epith Cells 24 H (0-4) /hpf Urine Bacteria Rare H (None) /hpf Hyaline Casts 6 H (0-2) /lpf Urine Mucus Many H (None) /hpf Disposition Clinical Impression: Post-operative complication Disposition: HOME SELF-CARE Condition: Stable Additional Instructions: Follow-up with surgeon for upcoming appointment. Hydrate aggressively. Please return to the Emergency Department if symptoms worsen or any other concerns. Is patient prescribed a controlled substance at d/c from ED?: No Referrals: Justin Molina MD [Primary Care Provider] - 1-2 days Time of Disposition: 19:39
[2024-06-22] MEDS: SODIUM CHLORIDE 0.9% 1,000 ML IV STA (15:53)
[2024-06-22] MEDS: ONDANSETRON 4 MG/2 ML VIAL IVP STA (15:53)
[2024-06-22] MEDS: HYDROmorphone 0.5 MG/0.5 ML SYRINGE IVP STA ×3 (15:55→20:17)
[2024-06-22 16:20] LABS: Anisocytosis Slight; Basophils % (A) 0 %; Eosinophils # (A) 0.2 k/uL (0-0.7); Eosinophils % (A) 2 %; HCT 41.8 % (34.0-46.0); HGB 12.7 gm/dL (11.4-16.0); Hypochromasia Marked; Lymphocytes # (A) 1.8 k/uL (1.0-4.8); Lymphocytes % (A) 20 %; MCH 27.1 pg (25.0-35.0); MCHC 30.3 g/dL (31.0-37.0); MCV 89.5 fL (80.0-100.0); Mean Platelet Volume 8.8; Monocytes # (A) 0.4 k/uL (0-1.0); Monocytes % (A) 4 %; Neutrophils # (A) 6.8 k/uL (1.3-7.7); Neutrophils % (A) 73 %; Platelet Count 294 k/uL (150-450); RBC 4.67 m/uL (3.80-5.40); RDW 17.8 % (11.5-15.5); WBC 9.2 k/uL (3.8-10.6)
[2024-06-22 16:38] LABS: ALT 7 U/L (4-34); AST 20 U/L (14-36); African American GFR (CKD) >90 (>60 ml/min/1.73 sqM); Albumin 3.5 g/dL (3.5-5.0); Alkaline Phosphatase 65 U/L (38-126); Anion Gap 10 mmol/L; Blood Urea Nitrogen 3 mg/dL (7-17); Calcium 9.4 mg/dL (8.4-10.2); Carbon Dioxide 18 mmol/L (22-30); Chloride 110 mmol/L (98-107); Glucose 66 mg/dL (74-99); Lipase 56 U/L (23-300); Non-African American GFR(CKD) >90 (>60 ml/min/1.73 sqM); Potassium 4.1 mmol/L (3.5-5.1); Sodium 138 mmol/L (137-145); Total Bilirubin 0.5 mg/dL (0.2-1.3); Total Protein 6.2 g/dL (6.3-8.2)
[2024-06-22 19:18] LABS: Appearance,Urine Cloudy (Clear); Bacteria,Urine Rare /hpf; Bilirubin,Urine Negative (Negative); Blood,Urine Trace (Negative); Color,Urine Yellow; Glucose,Urine (UA) Negative (Negative); Hyaline Casts,Urine 6 /lpf (0-2); Leukocyte Esterase,Urine Negative (Negative); Mucus,Urine Many /hpf; Nitrite,Urine Negative (Negative); Protein,Urine 1+ (Negative); RBC,Urine 2 /hpf (0-5); Specific Gravity,Urine 1.024 (1.001-1.035); Squamous Epithelial Cell,Urine 24 /hpf (0-4); WBC,Urine 2 /hpf (0-5)
[2024-06-22 19:23] LABS: Ketones,Urine 4+ (Negative)
[2024-06-22 21:03] VITALS: BP 144/94; PULSE 93
== END 2024-06-22 21:02 | disposition home or self-care (01) ==
LOC: EC 13:44
CPT/HCPCS: 36415; 80053; 81001; 83605; 83690; 85025; 96361; 96374; 96375; 96376; 99284

== ENCOUNTER 2024-07-09 18:46 | Emergency (ER) | payer OTHER ==
[2024-07-09 19:14] VITALS: TEMP 98.4
--- NOTE | 2024-07-09 19:23 | ED ---
Abdominal Pain HPI - General Chief Complaint: Abdominal Pain Stated Complaint: Abd pain, vomiting, weakness Time Seen by Provider: 07/09/24 19:23 Source: patient, family Mode of arrival: ambulatory Limitations: no limitations - History of Present Illness Initial Comments: 33-year-old female presenting with chief complaint of abdominal pain nausea and vomiting. History of bariatric surgery and since then has had multiple visits for persistent vomiting. She does have a follow-up appointment at [facility] scheduled for the . No fever, she does admit to chills. No chest pain or difficulty breathing. States that she is having diffuse bodyaches. No urinary symptoms. No hematemesis. No hematochezia or melena. No diarrhea. - Related Data Home Medications Medication Instructions Recorded Confirmed Asenapine [Saphris] 5 mg SUBLINGUAL HS 03/08/24 04/13/24 Ferrous Sulfate [Iron (65 MG 325 mg PO DAILY 04/04/24 04/13/24 Elemental)] LORazepam [Ativan] 0.5 mg PO BID PRN 04/04/24 04/13/24 Omeprazole [PriLOSEC] 20 mg PO AC-BID 04/04/24 04/13/24 Ondansetron Odt [Zofran ODT] 4 mg PO BID PRN 04/04/24 04/13/24 Potassium Chloride [Klor-Con M10] 10 meq PO DAILY 04/04/24 04/13/24 Sucralfate [Carafate] 1 gm PO ACHS 04/04/24 04/13/24 Enoxaparin [Lovenox] 105 mg SQ Q12H 04/13/24 04/13/24 Previous Rx's Medication Instructions Recorded traZODone HCL [Desyrel] 50 mg PO HS 30 Days #30 tab 04/06/24 Ibuprofen [Motrin] 400 mg PO Q6HR PRN tab 05/09/24 Ondansetron Odt [Zofran Odt] 4 mg PO Q8HR PRN #10 tab 06/20/24 Allergies Allergy/AdvReac Type Severity Reaction Status Date / Time latex Allergy Rash/Hives Verified 07/09/24 19:09 morphine AdvReac Itching Verified 07/09/24 19:09 Review of Systems ROS Statement: Those systems with pertinent positive or pertinent negative responses have been documented in the HPI. ROS Other: All systems not noted in ROS Statement are negative. Past Medical History Past Medical History: GERD/Reflux, Sleep Apnea/CPAP/BIPAP Additional Past Medical History / Comment(s): iron defiency anemia, currently getting iron infusions, no cpap used, pulmonary embolism 02/13/24 History of Any Multi-Drug Resistant Organisms: None Reported Past Surgical History: Bariatric Surgery, Section, Cholecystectomy, Tubal Ligation, Uterine Ablation Additional Past Surgical History / Comment(s): 2008 AND 2015 (c/s) and 2010 (cholecyst). 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 gastric bypass 06/11/24 Past Anesthesia/Blood Transfusion Reactions: No Reported Reaction Past Psychological History: Anxiety, Bipolar, Depression Smoking Status: Former smoker Past Alcohol Use History: None Reported Past Drug Use History: None Reported - Past Family History Mother Family Medical History: Asthma, COPD, Diabetes Mellitus, Hypertension Additional Family Medical History / Comment(s): depression, anxiety, sleep apnea, Father Family Medical History: Hypertension Additional Family Medical History / Comment(s): arthritis General Exam - General Exam Comments Initial Comments: Visual Physical Exam Vital signs reviewed General: Well-appearing, nontoxic, no acute distress. Head: Normocephalic, atraumatic Eyes: PERRLA, EOMI ENT: Airway patent Chest: Nonlabored breathing Skin: No visual rash, normal skin tone Neuro: Alert and oriented 3 Musculoskeletal: No gross abnormalities Limitations: no limitations General appearance: alert, in no apparent distress Head exam: Present: atraumatic, normocephalic, normal inspection Eye exam: Present: normal appearance, EOMI Neck exam: Present: normal inspection. Absent: meningismus Respiratory exam: Present: normal lung sounds bilaterally. Absent: respiratory distress, wheezes, rales, rhonchi, stridor Cardiovascular Exam: Present: regular rate, normal rhythm, normal heart sounds. Absent: systolic murmur, diastolic murmur, rubs, gallop, clicks GI/Abdominal exam: Present: soft. Absent: distended, tenderness, guarding, rebound, rigid Neurological exam: Present: alert, oriented X3 Psychiatric exam: Present: normal affect, normal mood Skin exam: Present: warm, dry Course Vital Signs 07/09/24 07/10/24 07/10/24 19:09 03:16 04:26 Temperature 98.4 F Pulse Rate 109 H 95 99 Respiratory 20 18 18 Rate Blood Pressure 121/78 107/75 123/84 O2 Sat by Pulse 98 99 98 Oximetry Medical Decision Making - Medical Decision Making I performed the quick note portion of this visit, electronically signed Osmin Jones PA-C Was pt. sent in by a medical professional or institution (STEPHY Wild, SOAKING ROOM OPERATOR, urgent care, hospital, or shelter...) When possible be specific @ -[No] Did you speak to anyone other than the patient for history (EMS, parent, family, police, friend...)? What history was obtained from this source @ -[No] Did you review nursing and triage notes (agree or disagree)? Why? @ -[I reviewed and agree with nursing and triage notes] Were old charts reviewed (outside hosp., previous admission, EMS record, old EKG, old radiological studies, urgent care reports/EKG's, shelter records)? Report findings @ -Reviewed recent visits Differential Diagnosis (chest pain, altered mental status, abdominal pain women, abdominal pain men, vaginal bleeding, weakness, fever, dyspnea, syncope, headac he, dizziness, GI bleed, back pain, seizure, CVA, palpatations, mental health, musculoskeletal)? @ -MDM Differential Abdominal Pain Women: Appendicitis, Cholecystitis, diverticulosis, ischemic bowel, pancreatitis, hepatitis, UTI, gastroenteritis, AAA, incarcerated hernia, bowel obstruction, constipation, inflammatory bowel, hepatitis, peptic ulcer disease, splenic infarction, perforated viscus, vulvitis, ovarian torsion, PID, kidney stone, placenta abruption... This is not meant to be an all-inclusive list EKG interpreted by me (3pts min.). @ -[As above] X-rays interpreted by me (1pt min.). @ -[None done] CT interpreted by me (1pt min.). @ -[None done] U/S interpreted by me (1pt. min.). @ -[None done] What testing was considered but not performed or refused? (CT, X-rays, U/S, labs)? Why? @ -[None] What meds were considered but not given or refused? Why? @ -[None] Did you discuss the management of the patient with other professionals (professionals i.e. STEPHY Wild, SOAKING ROOM OPERATOR, lab, RT, psych nurse, social media manager, cleaning validation consultant, teacher, chief fundraising officer, director of casework department)? Give summary @ -[No] Was smoking cessation discussed for >3mins.? @ -[No] Was critical care preformed (if so, how long)? @ -[No] Were there social determinants of health that impacted care today? How? (Homelessness, low income, unemployed, alcoholism, drug addiction, transportation, low edu. Level, literacy, decrease access to med. care, senior care, rehab)? @ -[No] Was there de-escalation of care discussed even if they declined (Discuss DNR or withdrawal of care, Hospice)? DNR status @ -[No] What co-morbidities impacted this encounter? (DM, HTN, Smoking, COPD, CAD, Cancer, CVA, ARF, Chemo, Hep., AIDS, mental health diagnosis, sleep apnea, morbid obesity)? @ -[None] Was patient admitted / discharged? Hospital course, mention meds given and route, prescriptions, significant lab abnormalities, going to OR and other pe rtinent info. @ -33-year-old female presenting with chief complaint of nausea and vomiting. Patient has had multiple episodes of nausea vomiting and abdominal discomfort since her bariatric surgery. This is similar to her previous episodes. Workup was initiated by triage. WBC 10.8, likely reactive secondary to vomiting. Difficulty obtaining remainder of lab work, awaiting lab to come down and draw CMP lipase and hCG. Patient is receiving pain meds, antiemetics, and fluids. Patient is educated on results thus far. She is resting in the bed showing no signs of distress upon reassessment. Lab work is pending. Patient is signed out to my attending Dr. Parra for further management and disposition. Anticipated discharge instructions are pre-uploaded, subject to change Undiagnosed new problem with uncertain prognosis? @ -[No] Drug Therapy requiring intensive monitoring for toxicity (Heparin, Nitro, Insulin, Cardizem)? @ -[No] Were any procedures done? @ -[No] Diagnosis/symptom? @ -[default] Acute, or Chronic, or Acute on Chronic? @ -[default] Uncomplicated (without systemic symptoms) or Complicated (systemic symptoms)? @ -[default] Side effects of treatment? @ -[No] Exacerbation, Progression, or Severe Exacerbation? @ -[No] Poses a threat to life or bodily function? How? (Chest pain, [place], [place], pneumonia, PE, COPD, DKA, ARF, appy, cholecystitis, CVA, Diverticulitis, Homicidal, Suicidal, threat to staff... and all critical care pts) @ -[No] - Lab Data Result diagrams: 07/09/24 19:30 07/10/24 03:00 Lab Results 07/09/24 07/09/24 07/10/24 Range/Units 19:30 19: 03:00 WBC 10.8 H (3.8-10.6) k/uL RBC 4.85 (3.80-5.40) m/uL Hgb 13.3 (11.4-16.0) gm/dL Hct 42.9 (34.0-46.0) % MCV 88.4 (80.0-100.0) fL MCH 27.3 (25.0-35.0) pg MCHC 30.9 L (31.0-37.0) g/dL RDW 17.1 H (11.5-15.5) % Plt Count 239 (150-450) k/uL MPV 10.0 Neutrophils % 71 % Lymphocytes % 19 % Monocytes % 7 % Eosinophils % 1 % Basophils % 0 % Neutrophils # 7.7 (1.3-7.7) k/uL Lymphocytes # 2.1 (1.0-4.8) k/uL Monocytes # 0.8 (0-1.0) k/uL Eosinophils # 0.1 (0-0.7) k/uL Basophils # 0.0 (0-0.2) k/uL Hypochromasia Moderate Anisocytosis Slight Sodium 137 (137-145) mmol/L Potassium 3.0 L (3.5-5.1) mmol/L Chloride 108 H (98-107) mmol/L Carbon Dioxide 22 (22-30) mmol/L Anion Gap 7 mmol/L BUN 4 L (7-17) mg/dL Creatinine 0.42 L (0.52-1.04) mg/dL Est GFR (CKD-EPI)AfAm >90 (>60 ml/min/1.73 sqM) Est GFR (CKD-EPI)NonAf >90 (>60 ml/min/1.73 sqM) Glucose 74 (74-99) mg/dL Plasma Lactic Acid Case 1.0 (0.7-2.0) mmol/L Calcium 8.2 L (8.4-10.2) mg/dL Total Bilirubin 0.4 (0.2-1.3) mg/dL AST 40 H (14-36) U/L ALT 16 (4-34) U/L Alkaline Phosphatase 68 (38-126) U/L Total Protein 5.6 L (6.3-8.2) g/dL Albumin 3.0 L (3.5-5.0) g/dL Amylase 50 (30-110) U/L Lipase 63 (23-300) U/L HCG, Qual Not Detected Disposition Clinical Impression: Nausea and vomiting Disposition: HOME SELF-CARE Condition: Fair Instructions (If sedation given, give patient instructions): Acute Nausea and Vomiting (ED) Additional Instructions: Follow-up with PCP and surgeon. Report back to ER with any new or worsening symptoms. Is patient prescribed a controlled substance at d/c from ED?: No Referrals: Justin Molina MD [Primary Care Provider] - 1-2 days
[2024-07-09] MEDS: ONDANSETRON 4 MG/2 ML VIAL IVP STA (21:38)
[2024-07-09] MEDS: HYDROmorphone 1 MG/ML 1 ML SYRINGE IVP STA (21:38)
[2024-07-09] MEDS: SODIUM CHLORIDE 0.9% 2,000 ML IV ONE (21:39)
[2024-07-09 22:36] LABS: Anisocytosis Slight; Basophils % (A) 0 %; Eosinophils # (A) 0.1 k/uL (0-0.7); Eosinophils % (A) 1 %; HCT 42.9 % (34.0-46.0); HGB 13.3 gm/dL (11.4-16.0); Hypochromasia Moderate; Lymphocytes # (A) 2.1 k/uL (1.0-4.8); Lymphocytes % (A) 19 %; MCH 27.3 pg (25.0-35.0); MCHC 30.9 g/dL (31.0-37.0); MCV 88.4 fL (80.0-100.0); Monocytes # (A) 0.8 k/uL (0-1.0); Monocytes % (A) 7 %; Neutrophils # (A) 7.7 k/uL (1.3-7.7); Neutrophils % (A) 71 %; Platelet Count 239 k/uL (150-450); RBC 4.85 m/uL (3.80-5.40); RDW 17.1 % (11.5-15.5); WBC 10.8 k/uL (3.8-10.6)
[2024-07-10] MEDS: HYDROmorphone 0.5 MG/0.5 ML SYRINGE IVP STA (00:01)
[2024-07-10] MEDS: METOCLOPRAMIDE 5 MG/ML 2 ML VIAL IVP STA (02:53)
[2024-07-10] MEDS: KETOROLAC 15 MG/ML 1 ML VIAL IVP STA (02:54)
[2024-07-10 03:16] VITALS: RESP 18
[2024-07-10 04:10] LABS: HCG,Qualitative Serum Not Detected
[2024-07-10 04:12] LABS: ALT 16 U/L (4-34); AST 40 U/L (14-36); African American GFR (CKD) >90 (>60 ml/min/1.73 sqM); Alkaline Phosphatase 68 U/L (38-126); Amylase 50 U/L (30-110); Anion Gap 7 mmol/L; Blood Urea Nitrogen 4 mg/dL (7-17); Calcium 8.2 mg/dL (8.4-10.2); Carbon Dioxide 22 mmol/L (22-30); Chloride 108 mmol/L (98-107); Glucose 74 mg/dL (74-99); Lipase 63 U/L (23-300); Non-African American GFR(CKD) >90 (>60 ml/min/1.73 sqM); Sodium 137 mmol/L (137-145); Total Bilirubin 0.4 mg/dL (0.2-1.3); Total Protein 5.6 g/dL (6.3-8.2)
[2024-07-10] MEDS: traMADol 50 MG STARTER PACK 3 TAB BTL PO STA (04:25)
[2024-07-10 04:37] VITALS: BP 123/84; PULSE 99
== END 2024-07-10 04:26 | disposition home or self-care (01) ==
LOC: EC 18:46
CPT/HCPCS: 36415; 80053; 82150; 83605; 83690; 84703; 85025; 96361; 96374; 96375; 96376; 99284

== ENCOUNTER 2024-07-12 12:47 | Observation (INO) | payer OTHER ==
[2024-07-12] MEDS ORDERED: IOPAMIDOL CONTRAST (ORAL USE) VIAL PO PRN (13:09)
--- NOTE | 2024-07-12 13:15 | ED ---
General Adult HPI - General Source: patient, family, RN notes reviewed Mode of arrival: wheelchair Limitations: no limitations <Mich Will - Last Filed: 07/12/24 13:11> <Luiza Pierson - Last Filed: 07/13/24 01:04> - General Chief complaint: Abdominal Pain Stated complaint: Abd pain Time Seen by Provider: 07/12/24 13:01 - History of Present Illness Initial comments: Patient is a 33-year-old female present to the emergency department with concerns with nausea vomiting. Patient has chronic problems since gastric procedure months ago. Patient did have revision done a month ago with continued problems. Patient does not feel symptoms are significantly worse. Patient has continued nausea and vomiting. Patient has continued epigastric discomfort. No constipation or diarrhea. No fever. Patient has not had repeat CT scan since prior to her recent surgery (Mich Will) - Related Data Home Medications Medication Instructions Recorded Confirmed Omeprazole [PriLOSEC] 20 mg PO BID 04/04/24 07/12/24 Asenapine Maleate [Saphris] 10 mg SUBLINGUAL HS 07/12/24 07/12/24 Budesonide/Formoterol Fumarate 2 puff INHALATION RT-BID 07/12/24 07/12/24 [Symbicort 160-4.5 Mcg Inhaler] HYDROcodone/APAP 5-325MG [[place] 1 tab PO BID PRN 07/12/24 07/12/24 5-325] LORazepam [Ativan] 1 mg PO BID PRN 07/12/24 07/12/24 QUEtiapine [SEROquel] 100 mg PO HS 07/12/24 07/12/24 Sulfamethox-Tmp 200-40Mg/5Ml 1 dose PO DIRECTED 07/12/24 07/12/24 [Bactrim Suspension] Tiotropium 2.5 Mcg/Puff [Spiriva 2 puff INHALATION RT-DAILY 07/12/24 07/12/24 Respimat 2.5 Mcg] cephALEXin [Keflex Oral Susp] 1 dose PO DIRECTED 07/12/24 07/12/24 traZODone HCL [Desyrel] 100 mg PO DIRECTED 07/12/24 07/12/24 Allergies Allergy/AdvReac Type Severity Reaction Status Date / Time latex Allergy Rash/Hives Verified 07/12/24 17:55 morphine AdvReac Itching Verified 07/12/24 17:55 Review of Systems ROS Other: All systems not noted in ROS Statement are negative. Constitutional: Denies: fever Eyes: Denies: eye pain ENT: Denies: ear pain Respiratory: Denies: cough Cardiovascular: Denies: chest pain Endocrine: Denies: fatigue Gastrointestinal: Reports: as per HPI, abdominal pain, nausea, vomiting Musculoskeletal: Denies: back pain <Mich Will - Last Filed: 07/12/24 13:11> ROS Other: All systems not noted in ROS Statement are negative. <Luiza Pierson - Last Filed: 07/13/24 01:04> ROS Statement: Those systems with pertinent positive or pertinent negative responses have been documented in the HPI. Past Medical History Past Medical History: GERD/Reflux, Pulmonary Embolus (PE), Sleep Apnea/CPAP/BIPAP Additional Past Medical History / Comment(s): iron defiency anemia, currently getting iron infusions, no cpap used, pulmonary embolism 02/13/24 History of Any Multi-Drug Resistant Organisms: None Reported Past Surgical History: Bariatric Surgery, Section, Cholecystectomy, Tubal Ligation, Uterine Ablation Additional Past Surgical History / Comment(s): 2008 AND 2015 (c/s) and 2010 (cholecyst). 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 gastric bypass 06/11/24 Past Anesthesia/Blood Transfusion Reactions: No Reported Reaction Past Psychological History: Anxiety, Bipolar, Depression Smoking Status: Former smoker Past Alcohol Use History: None Reported Past Drug Use History: None Reported - Past Family History Mother Family Medical History: Asthma, COPD, Diabetes Mellitus, Hypertension Additional Family Medical History / Comment(s): depression, anxiety, sleep apnea, Father Family Medical History: Hypertension Additional Family Medical History / Comment(s): arthritis <Mich Will - Last Filed: 07/12/24 13:11> General Exam Limitations: no limitations General appearance: alert, in no apparent distress Head exam: Present: normocephalic Eye exam: Present: normal appearance Neck exam: Present: normal inspection Respiratory exam: Present: normal lung sounds bilaterally Cardiovascular Exam: Present: regular rate, normal rhythm Expanded Peripheral pulses: 2+: Dorsalis Pedis (R), Dorsalis Pedis (L) GI/Abdominal exam: Present: soft, tenderness (Minimal epigastric tenderness to palpation). Absent: pulsatile mass Extremities exam: Present: normal inspection. Absent: pedal edema, calf tend erness Neurological exam: Present: alert Psychiatric exam: Present: normal affect, normal mood Skin exam: Present: normal color <Mich Will - Last Filed: 07/12/24 13:11> Course Vital Signs 07/12/24 07/12/24 07/12/24 12:51 16:16 20:44 Temperature 98.5 F Pulse Rate 106 H 76 88 Respiratory 20 18 18 Rate Blood Pressure 111/78 101/66 94/62 O2 Sat by Pulse 99 97 99 Oximetry 07/12/24 07/12/24 21:36 21:50 Temperature Pulse Rate 82 88 Respiratory 18 18 Rate Blood Pressure 108/72 94/62 O2 Sat by Pulse 99 99 Oximetry Medical Decision Making - Lab Data Result diagrams: 07/12/24 13:33 07/12/24 13:33 <Luiza Pierson - Last Filed: 07/13/24 01:04> - Medical Decision Making Was patient admitted / discharged? Hospital course, mention meds given and route, prescriptions, significant lab abnormalities, going to OR and other pertinent info. @ Admission to Dr. Grey-patient signed out to myself from outgoing physician, Dr. Will. Patient is a 33-year-old female past medical history of recurrent nausea, vomiting abdominal pain. Had gastric bypass performed Juanjo Rick a few weeks ago for the symptoms. Patient presents today for lack of improvement of symptoms. States that pain is similar to prior to her surgery. Patient signed out to myself pending CT abdomen pelvis. CT abdomen pelvis showed no acute intra-abdominal process. I updated and reassessed patient. On abdominal exam abdomen is soft with active bowel sounds, epigastric and left upper quadrant tenderness palpation. She remained painful despite multiple doses of Dilaudid. Discussed admission for observation due to persistent pain and nausea vs discharge with outpatient follow up. Pt states she is too painful to go home. Discussed with Dr. Grey, who kindly accepted patient for admission. Patient admitted in stable condition Undiagnosed new problem with uncertain prognosis? @ -No Drug Therapy requiring intensive monitoring for toxicity (Heparin, Nitro, Insulin, Cardizem)? @ -No Were any procedures done? @ -No Diagnosis/symptom? @ -Intractable abdominal pain Acute, or Chronic, or Acute on Chronic? @Acute on chronic Uncomplicated (without systemic symptoms) or Complicated (systemic symptoms)? @Complicated Side effects of treatment? @ -No Exacerbation, Progression, or Severe Exacerbation? @ -No Poses a threat to life or bodily function? How? (Chest pain, USA, VT, pneumonia, PE, COPD, DKA, ARF, appy, cholecystitis, CVA, Diverticulitis, Homicidal, Suicidal, threat to staff... and all critical care pts) @UNlikely (Luiza Pierson) - Lab Data Lab Results 07/12/24 07/12/24 07/12/24 Range/Units 13:33 13:33 13:33 WBC 11.3 H (3.8-10.6) k/uL RBC 4.67 (3.80-5.40) m/uL Hgb 12.7 (11.4-16.0) gm/dL Hct 40.4 (34.0-46.0) % MCV 86.6 (80.0-100.0) fL MCH 27.2 (25.0-35.0) pg MCHC 31.4 (31.0-37.0) g/dL RDW 17.7 H (11.5-15.5) % Plt Count 243 (150-450) k/uL MPV 10.0 Neutrophils % 77 % Lymphocytes % 18 % Monocytes % 3 % Eosinophils % 2 % Basophils % 0 % Neutrophils # 8.7 H (1.3-7.7) k/uL Lymphocytes # 2.0 (1.0-4.8) k/uL Monocytes # 0.3 (0-1.0) k/uL Eosinophils # 0.2 (0-0.7) k/uL Basophils # 0.0 (0-0.2) k/uL Poikilocytosis Slight Anisocytosis Slight PT 11.0 (10.0-12.5) sec INR 1.0 (<1.2) APTT 23.4 (22.0-30.0) sec Sodium 138 (137-145) mmol/L Potassium 4.3 (3.5-5.1) mmol/L Chloride 105 (98-107) mmol/L Carbon Dioxide 18 L (22-30) mmol/L Anion Gap 15 mmol/L BUN <2 L (7-17) mg/dL Creatinine 0.40 L (0.52-1.04) mg/dL Est GFR (CKD-EPI)AfAm >90 (>60 ml/min/1.73 sqM) Est GFR (CKD-EPI)NonAf >90 (>60 ml/min/1.73 sqM) Glucose 71 L (74-99) mg/dL Calcium 9.3 (8.4-10.2) mg/dL Total Bilirubin 0.6 (0.2-1.3) mg/dL AST 26 (14-36) U/L ALT 15 (4-34) U/L Alkaline Phosphatase 77 (38-126) U/L Total Protein 7.0 (6.3-8.2) g/dL Albumin 3.9 (3.5-5.0) g/dL Amylase 57 (30-110) U/L Lipase 52 (23-300) U/L HCG, Qual Not Detected Disposition <Mich Will - Last Filed: 07/12/24 13:11> <Luiza Pierson - Last Filed: 07/13/24 01:04> Clinical Impression: Intractable abdominal pain Disposition: ADMITTED IP TO THIS [facility] Condition: Good
[2024-07-12 13:41] LABS: Anisocytosis Slight; Basophils % (A) 0 %; Eosinophils # (A) 0.2 k/uL (0-0.7); Eosinophils % (A) 2 %; HCT 40.4 % (34.0-46.0); HGB 12.7 gm/dL (11.4-16.0); Lymphocytes % (A) 18 %; MCH 27.2 pg (25.0-35.0); MCHC 31.4 g/dL (31.0-37.0); MCV 86.6 fL (80.0-100.0); Monocytes # (A) 0.3 k/uL (0-1.0); Monocytes % (A) 3 %; Neutrophils # (A) 8.7 k/uL (1.3-7.7); Neutrophils % (A) 77 %; Platelet Count 243 k/uL (150-450); Poikilocytosis Slight; RBC 4.67 m/uL (3.80-5.40); RDW 17.7 % (11.5-15.5); WBC 11.3 k/uL (3.8-10.6)
[2024-07-12] MEDS: PANTOPRAZOLE 40 MG/10 ML VIAL IVP STA (13:42)
[2024-07-12] MEDS: ONDANSETRON 4 MG/2 ML VIAL IVP STA (13:42)
[2024-07-12] MEDS: HYDROmorphone 1 MG/ML 1 ML SYRINGE IVP STA ×2 (13:43→16:21)
[2024-07-12] MEDS: SODIUM CHLORIDE 0.9% 1,000 ML IV STA (13:44)
[2024-07-12 14:03] LABS: Partial Thromboplastin Time 23.4 sec (22.0-30.0)
[2024-07-12 14:05] LABS: HCG,Qualitative Serum Not Detected
[2024-07-12 14:11] LABS: ALT 15 U/L (4-34); African American GFR (CKD) >90 (>60 ml/min/1.73 sqM); Albumin 3.9 g/dL (3.5-5.0); Amylase 57 U/L (30-110); Anion Gap 15 mmol/L; Blood Urea Nitrogen <2 mg/dL (7-17); Calcium 9.3 mg/dL (8.4-10.2); Carbon Dioxide 18 mmol/L (22-30); Chloride 105 mmol/L (98-107); Glucose 71 mg/dL (74-99); Lipase 52 U/L (23-300); Non-African American GFR(CKD) >90 (>60 ml/min/1.73 sqM); Sodium 138 mmol/L (137-145); Total Bilirubin 0.6 mg/dL (0.2-1.3)
[2024-07-12 14:14] LABS: AST 26 U/L (14-36); Alkaline Phosphatase 77 U/L (38-126); Potassium 4.3 mmol/L (3.5-5.1)
--- NOTE | 2024-07-12 15:38 | CT ---
EXAMINATION TYPE: CT abdomen pelvis w con CT DLP: 971.4 mGycm, Automated exposure control for dose reduction was used. DATE OF EXAM: 07/12/2024 3:30 PM COMPARISON: CT abdomen pelvis 06/20/2024 CLINICAL INDICATION:Female, 33 years old with history of bariatric, abdominal pain; epigastric pain, nausea, vomiting, pt states he had a revision done on her gastric sleeve in May 2024 TECHNIQUE: Standard CT of the abdomen and pelvis following the administration of 100 cc of Isovue 3 00 IV contrast material. Bariatric oral contrast. Coronal and sagittal reformats were performed. FINDINGS: LOWER CHEST: Unremarkable ABDOMEN LIVER: Unremarkable GALLBLADDER AND BILE DUCTS: The gallbladder is surgically absent. No biliary ductal dilatation. PANCREAS: Unremarkable. SPLEEN: Unremarkable. ADRENAL GLANDS: Unremarkable. KIDNEYS AND URETERS: No evidence of hydronephrosis or renal calculus. The kidneys enhance symmetrical ly. Contrast is demonstrated within both collecting systems on the delayed phase. PELVIS BLADDER: Incompletely distended but grossly unremarkable. REPRODUCTIVE: Development of bilateral ovarian cysts with the right measuring up to 3.9 cm and the le ft measuring up to 2.9 cm. ABDOMEN & PELVIS STOMACH AND BOWEL: Postsurgical changes from Glenn-en-Y gastric bypass.There is again a left lateral b pako-ending tract emanating from the gastric pouch containing contrast and gas (series 201, image 12) . No surrounding inflammatory changes. Enteric contrast reaches the mid small bowel past the distal a nastomosis. No focal bowel wall thickening or surrounding inflammatory change. The appendix is within normal limits. No evidence of bowel obstruction. PERITONEUM: No evidence of pneumoperitoneum. Trace free fluid in the pelvic cul-de-sac again. VASCULATURE: No evidence of aortic aneurysm. Right-sided pelvic phlebolith. MUSCULOSKELETAL: No acute osseous abnormalities LYMPH NODES: No gross evidence for lymphadenopathy. SOFT TISSUE/ABDOMINAL WALL: No significant findings. IMPRESSION: 1. Postsurgical changes from Glenn-en-Y gastric bypass with redemonstration of blind-ending tract gustavo nating from the gastric pouch and contains contrast. 2. Development of bilateral ovarian cysts. Probable follicular cysts. [facility], , 07/12/2024 3:36 PM
[2024-07-12] MEDS ORDERED: NALOXONE 0.4 MG/ML 1 ML VIAL IV PRN (17:44)
[2024-07-12] MEDS ORDERED: ACETAMINOPHEN TAB 325 MG TAB PO PRN (17:44)
[2024-07-12] MEDS: SODIUM CHLORIDE 0.9% 1,000 ML IV SCH (18:02)
[2024-07-12] MEDS: HYDROmorphone 2 MG/ML 1 ML SYRINGE IVP PRN (21:32)
[2024-07-12] MEDS: ONDANSETRON 4 MG/2 ML VIAL IVP PRN (22:06)
[2024-07-12] MEDS ORDERED: CEPHALEXIN 250 MG/5 ML SUSPENSION PO SCH (23:30)
[2024-07-12] MEDS ORDERED: SULFAMETHOX-TMP 200-40MG/5ML ORAL SYRG PO SCH (23:30)
[2024-07-13] MEDS: LORazepam 1 MG TAB PO PRN (00:42)
[2024-07-13] MEDS: QUEtiapine 100 MG TAB PO SCH (00:42)
[2024-07-13] MEDS: HYDROmorphone 0.5 MG/0.5 ML SYRINGE IVP PRN (01:35)
[2024-07-13] MEDS: PANTOPRAZOLE 40 MG TABLET PO SCH (05:58)
[2024-07-13] MEDS: PANTOPRAZOLE 40 MG/10 ML VIAL IV SCH (08:32)
[2024-07-13] MEDS: TIOTROPIUM 2.5 MCG INHALER INHALATION SCH (08:54)
[2024-07-13] MEDS: SYMBICORT 160-4.5 MCG INHALER INHALATION SCH (08:54)
[2024-07-13] MEDS ORDERED: VANCOMYCIN IV PER PHARMACY 1 EACH MISC MISCELLANE PRN (11:24)
--- NOTE | 2024-07-13 13:33 | US ---
EXAMINATION TYPE: US axilla LT DATE OF EXAM: 07/13/2024 COMPARISON: NONE CLINICAL INDICATION: Female, 33 years old with history of abscess; Boil. palpable left axilla for 3 d ays. just started to drain TECHNIQUE: Grayscale and color Doppler imaging of the left axilla. FINDINGS: Heterogenous fluid collection in the left axilla within area of concern = 5.0 x 1.8 x 4.7c m there is surrounding color Doppler flow which is increased. IMPRESSION: Left axilla abscess. [facility], , 07/13/2024 1:30 PM
[2024-07-13] MEDS: VANCOMYCIN 1,500 MG in SODIUM CHLORIDE 0.9% 500 ML 500 ML IVPB SCH (13:57)
--- NOTE | 2024-07-13 17:38 | P.HPIM ---
History of Present Illness H&P Date: 07/13/24 Chief Complaint: Abdominal pain for 3 to 4 days ago progressive also has a lump in left axil Morbidly obese female presented to emergency department with ongoing complaints of nausea and vomiting. Patient has history of revision done about a month ago with ongoing problems unable to tolerate p.o. continuously has intermittent nausea and vomiting no constipation or diarrhea no fever. On arrival she was afebrile tachypneic and tachycardic with heart rate over 106, respiratory 20 labs were significant for WBC count 11.3 kidney function within normal limit she glucose 71. CT scan of the abdomen pelvis revealed postsurgical changes from gastric bypass with remodeling of blind-ending gastric pouch, bilateral ovarian cyst, in addition patient describing a maxilla for the last 2 to 3 days a big lump is developing tender to touch erythematous Her prior medical history significant for GERD, COPD, major depression, chronic insomnia, GERD, PE not on anticoagulation, sleep disordered breathing and sleep apnea Review of Systems All systems: negative Past Medical History Past Medical History: GERD/Reflux, Pulmonary Embolus (PE), Sleep Apnea/CPAP/BIPAP Additional Past Medical History / Comment(s): iron defiency anemia, currently getting iron infusions, no cpap used, pulmonary embolism 02/13/24 History of Any Multi-Drug Resistant Organisms: None Reported Past Surgical History: Bariatric Surgery, Section, Cholecystectomy, Tubal Ligation, Uterine Ablation Additional Past Surgical History / Comment(s): 2008 AND 2015 (c/s) and 2010 (cholecyst). 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 gastric bypass 06/11/24 Past Anesthesia/Blood Transfusion Reactions: No Reported Reaction Past Psychological History: Anxiety, Bipolar, Depression Additional Psychological History / Comment(s): Pt on oral medications Smoking Status: Former smoker Past Alcohol Use History: None Reported Additional Past Alcohol Use History / Comment(s): Pt. states she quit smoking cigarettes , pt denies vaping at this time Past Drug Use History: None Reported - Past Family History Mother Family Medical History: Asthma, COPD, Diabetes Mellitus, Hypertension Additional Family Medical History / Comment(s): depression, anxiety, sleep apnea, Father Family Medical History: Hypertension Additional Family Medical History / Comment(s): arthritis Medications and Allergies Home Medications Medication Instructions Recorded Confirmed Type Omeprazole [PriLOSEC] 20 mg PO BID 04/04/24 07/12/24 History Asenapine Maleate [Saphris] 10 mg SUBLINGUAL HS 07/12/24 07/12/24 History Budesonide/Formoterol Fumarate 2 puff INHALATION RT-BID 07/12/24 07/12/24 History [Symbicort 160-4.5 Mcg Inhaler] HYDROcodone/APAP 5-325MG [[place] 1 tab PO BID PRN 07/12/24 07/12/24 History 5-325] LORazepam [Ativan] 1 mg PO BID PRN 07/12/24 07/12/24 History QUEtiapine [SEROquel] 100 mg PO HS 07/12/24 07/12/24 History Sulfamethox-Tmp 200-40Mg/5Ml 20 ml PO BID 07/12/24 07/13/24 History [Bactrim Suspension] Tiotropium 2.5 Mcg/Puff [Spiriva 2 puff INHALATION RT-DAILY 07/12/24 07/12/24 History Respimat 2.5 Mcg] cephALEXin [Keflex Oral Susp] 500 mg PO QID 07/12/24 07/13/24 History traZODone HCL [Desyrel] 100 mg PO HS 07/12/24 07/13/24 History Allergies Allergy/AdvReac Type Severity Reaction Status Date / Time latex Allergy Rash/Hives Verified 07/12/24 17:55 morphine AdvReac Itching Verified 07/12/24 17:55 Physical Exam Vitals: Vital Signs Temp Pulse Pulse Resp BP BP Pulse Ox 07/13/24 07:02 98.1 F 90 17 97/64 97 07/13/24 01:09 98.1 F 84 17 117/80 98 07/12/24 22:02 98.3 F 95 19 121/89 100 07/12/24 21:50 88 18 94/62 99 07/12/24 21:36 82 18 108/72 99 07/12/24 20:44 88 18 94/62 99 07/12/24 16:16 76 18 101/66 97 07/12/24 12:51 98.5 F 106 H 20 111/78 99 Intake and Output 07/12/24 07/13/24 07/13/24 22:59 06:59 14:59 Intake Total 750 Balance 750 Intake: Intake, IV Titration 750 Amount Sodium Chloride 0.9% 1, 750 000 ml @ 75 mls/hr IV . [id number] ELPIDIO Rx#:[id number] Other: # Voids 2 Weight 81.193 kg - Constitutional General appearance: disheveled, morbidly obese - EENT Eyes: EOMI, PERRLA ENT: normal oropharynx Ears: bilateral: normal - Neck Neck: normal ROM Carotids: bilateral: upstroke normal Thyroid: negative: normal size - Respiratory Respiratory: bilateral: CTA - Cardiovascular Rhythm: regular Heart sounds: normal: S1, S2 - Gastrointestinal General gastrointestinal: normal bowel sounds, soft - Integumentary Left axilla size of a golf ball tender lump appearance of abscess, Integumentary: normal turgor - Neurologic Neurologic: CNII-XII intact - Musculoskeletal Musculoskeletal: gait normal, generalized weakness, strength equal bilaterally - Psychiatric Psychiatric: A&O x's 3, appropriate affect, intact judgment & insight Results CBC & Chem 7: 07/12/24 13:33 07/12/24 13:33 Labs: Abnormal Lab Results - Last 24 Hours (Table) 07/12/24 07/12/24 Range/Units 13:33 13:33 WBC 11.3 H (3.8-10.6) k/uL RDW 17.7 H (11.5-15.5) % Neutrophils # 8.7 H (1.3-7.7) k/uL Carbon Dioxide 18 L (22-30) mmol/L BUN <2 L (7-17) mg/dL Creatinine 0.40 L (0.52-1.04) mg/dL Glucose 71 L (74-99) mg/dL Chest x-ray: report reviewed, image reviewed CT scan - abdomen: report reviewed, image reviewed Thrombosis Risk Factor Assmnt - Choose All That Apply Any of the Below Risk Factors Present?: Yes Other Risk Factors: Yes Each Risk Factor Represents 3 Points: History of DVT/PE Thrombosis Risk Factor Assessment Total Risk Factor Score: 3 Thrombosis Risk Factor Assessment Level: Moderate Risk Assessment and Plan Assessment: Chronic abdominal pain with nausea and vomiting poor p.o. intake Recent gastric bypass surgery Left axillary abscess with failed respond to outpatient antibiotic therapy Morbid obesity History of DVT PE Chronic intermittent asthma Plan: IV antibiotics vancomycin Consult infectious disease Dr. Anne as well as general surgery Gentle rehydration Clear liquid diet and advance as tolerated DVT and peptic ulcer disease prophylaxis Continue medications MDI Pain control with Dilaudid Anxiety controlled with Ativan Time with Patient: Greater than 30
[2024-07-13] MEDS: HYDROcodone/APAP 5-325MG 1 EACH TAB PO PRN (20:10)
[2024-07-13] MEDS: ASENAPINE 5 MG TAB SUBLINGUAL SCH (20:39)
[2024-07-13] MEDS: HEPARIN SODIUM,PORCINE 5,000 UNIT/ML 1 ML VIAL SQ SCH (20:39)
[2024-07-13] MEDS: traZODone HCL 100 MG TAB PO SCH (20:39)
[2024-07-14] MEDS ORDERED: PANTOPRAZOLE 40 MG TABLET PO SCH (07:30)
[2024-07-14] MEDS: PANTOPRAZOLE 40 MG/10 ML VIAL IVP SCH (08:21)
--- NOTE | 2024-07-14 09:26 | P.CONS ---
History of Present Illness - Reason for Consult Consult date: 07/13/24 Abscess to the left axilla Requesting physician: Yariel Nuno - Chief Complaint Nausea and vomiting x few days - History of Present Illness Patient is a 33-year-old -[place] female with a past medical history significant for reflux PE sleep apnea presenting to the hospital for evaluation of nausea and vomiting in this patient symptom has been going on for few days d id have some epigastric discomfort mostly mild to moderate without any radiation patient on presentation to the hospital was afebrile and no fever have been recorded subsequently patient was not tachycardic hypotensive or hypoxic he did have white count of 11.3 with a left shift creatinine has been normal electrolytes are normal liver isms are normal patient did have a abdominal pelvis CT postsurgical changes from gastric bypass with redemonstration of blind ending tract patient also noticed to having some drainage from the left axillary area concerning for an abscess probably this consultation patient mention she did have previous problem of swelling to the left vaginal area that responded to the oral antibiotic and did not drain however with she started having a problem with left axillary area swelling about 2 to 3 days ago that has decreased in size has been complaining of pain describing it to be sharp moderate intensity without radiation and did have some spontaneous purulent drainage which was cultured Review of Systems Positive point and negatives has been mentioned in the HPI, complete review of systems was performed and all other systems are negative Past Medical History Past Medical History: GERD/Reflux, Pulmonary Embolus (PE), Sleep Apnea/CPAP/BIPAP Additional Past Medical History / Comment(s): iron defiency anemia, currently getting iron infusions, no cpap used, pulmonary embolism 02/13/24 History of Any Multi-Drug Resistant Organisms: None Reported Past Surgical History: Bariatric Surgery, Section, Cholecystectomy, Tubal Ligation, Uterine Ablation Additional Past Surgical History / Comment(s): 2008 AND 2015 (c/s) and 2010 (cholecyst). 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 gastric bypass 06/11/24 Past Anesthesia/Blood Transfusion Reactions: No Reported Reaction Past Psychological History: Anxiety, Bipolar, Depression Additional Psychological History / Comment(s): Pt on oral medications Smoking Status: Former smoker Past Alcohol Use History: None Reported Additional Past Alcohol Use History / Comment(s): Pt. states she quit smoking cigarettes , pt denies vaping at this time Past Drug Use History: None Reported - Past Family History Mother Family Medical History: Asthma, COPD, Diabetes Mellitus, Hypertension Additional Family Medical History / Comment(s): depression, anxiety, sleep apnea, Father Family Medical History: Hypertension Additional Family Medical History / Comment(s): arthritis Medications and Allergies Home Medications Medication Instructions Recorded Confirmed Type Omeprazole [PriLOSEC] 20 mg PO BID 04/04/24 07/12/24 History Asenapine Maleate [Saphris] 10 mg SUBLINGUAL HS 07/12/24 07/12/24 History Budesonide/Formoterol Fumarate 2 puff INHALATION RT-BID 07/12/24 07/12/24 History [Symbicort 160-4.5 Mcg Inhaler] HYDROcodone/APAP 5-325MG [[place] 1 tab PO BID PRN 07/12/24 07/12/24 History 5-325] LORazepam [Ativan] 1 mg PO BID PRN 07/12/24 07/12/24 History QUEtiapine [SEROquel] 100 mg PO HS 07/12/24 07/12/24 History Sulfamethox-Tmp 200-40Mg/5Ml 20 ml PO BID 07/12/24 07/13/24 History [Bactrim Suspension] Tiotropium 2.5 Mcg/Puff [Spiriva 2 puff INHALATION RT-DAILY 07/12/24 07/12/24 History Respimat 2.5 Mcg] cephALEXin [Keflex Oral Susp] 500 mg PO QID 07/12/24 07/13/24 History traZODone HCL [Desyrel] 100 mg PO HS 07/12/24 07/13/24 History Allergies Allergy/AdvReac Type Severity Reaction Status Date / Time latex Allergy Rash/Hives Verified 07/12/24 17:55 morphine AdvReac Itching Verified 07/12/24 17:55 Physical Exam Vitals: Vital Signs Temp Pulse Pulse Resp BP BP Pulse Ox 07/13/24 07:02 98.1 F 90 17 97/64 97 07/13/24 01:09 98.1 F 84 17 117/80 98 07/12/24 22:02 98.3 F 95 19 121/89 100 07/12/24 21:50 88 18 94/62 99 07/12/24 21:36 82 18 108/72 99 07/12/24 20:44 88 18 94/62 99 07/12/24 16:16 76 18 101/66 97 Intake and Output 07/12/24 07/13/24 07/13/24 22:59 06:59 14:59 Intake Total 750 Balance 750 Intake: Intake, IV Titration 750 Amount Sodium Chloride 0.9% 1, 750 000 ml @ 75 mls/hr IV . [id number] ELPIDIO Rx#:[id number] Other: # Voids 2 2 Weight 81.193 kg GENERAL DESCRIPTION: Middle-aged female lying in bed, no distress. No tachypnea or accessory muscle of respiration use. HEENT: Shows Pallor , no scleral icterus. Oral mucous membrane is dry. No pharyngeal erythema or thrush NECK: Trachea central, no thyromegaly. LUNGS: Unlabored breathing. Clear to auscultation anteriorly. No wheeze or cranberry grower ckle. HEART: S1, S2, regular rate and rhythm. No loud murmur ABDOMEN: Soft, no tenderness , guarding or rigidity, no organomegaly EXTREMITIES: No edema of feet. SKIN: No rash, no masses palpable. NEUROLOGICAL: The patient is awake, alert, oriented x3, mood and affect normal. Results CBC & Chem 7: 07/12/24 13:33 07/12/24 13:33 Labs: Abnormal Lab Results - Last 24 Hours (Table) 07/12/24 07/12/24 Range/Units 13:33 13:33 WBC 11.3 H (3.8-10.6) k/uL RDW 17.7 H (11.5-15.5) % Neutrophils # 8.7 H (1.3-7.7) k/uL Carbon Dioxide 18 L (22-30) mmol/L BUN <2 L (7-17) mg/dL Creatinine 0.40 L (0.52-1.04) mg/dL Glucose 71 L (74-99) mg/dL Assessment and Plan (1) Abscess of left axilla Current Visit: Yes Status: Acute Code(s): L02.412 - CUTANEOUS ABSCESS OF LEFT AXILLA SNOMED Code(s): 29248978 (2) Leukocytosis Current Visit: Yes Status: Acute Code(s): D72.829 - ELEVATED WHITE BLOOD CELL COUNT, UNSPECIFIED SNOMED Code(s): 562636510 Plan: 1patient presented to hospital with left axillary area swelling redness and did have some purulent drainage high clinical suspicious for an abscess possibly related to gram-positive skin rachel such as Staph aureus and possible MRSA 2-local culture has been obtained to guide further antibiotic therapy 3-ultrasound to make sure no evidence of any residual abscess that may need to be drained surgically 4vancomycin pharmacy to dose target trough of 15 while watching kidney function and Vanco trough closely We will follow on clinical condition and cultures to further adjust medication if needed Thank you for this consultation we will follow the patient along with you Dictation was produced using [employer] dictation software. please excuse any gram matical, word or spelling errors. Time with Patient: Greater than 30
--- NOTE | 2024-07-14 14:41 | P.PN ---
Subjective Progress Note Date: 07/14/24 Principal diagnosis: Reason for follow-up is left axillary abscess Patient is a 33-year-old -[place] female with a past medical history significant for reflux PE sleep apnea presenting to the hospital for evaluation of nausea and vomiting patient was also noted to have an abscess to the left axillary area prompting this consultation. On today's evaluation that is 07/14/2024, Patient is afebrile patient is currently on room air and denies having any shortness of breath, the patient denies any chest pain or cough, the patient denies any further nausea vomiting did not have any abdominal pain and no diarrhea still having drainage from the left axillary area. No new lab has been repeated today cultures are currently pending Objective - Vital Signs Vital signs: Vital Signs Temp 98.4 F 07/14/24 07:45 Pulse 83 07/14/24 07:45 Resp 16 07/14/24 07:45 BP 112/75 07/14/24 07:45 Pulse Ox 99 07/14/24 07:45 FiO2 Intake & Output 07/13/24 07/14/24 07/14/24 18:59 06:59 18:59 Intake Total 1250 Balance 1250 Intake: Intake, IV Titration 1250 Amount Sodium Chloride 0.9% 1, 750 000 ml @ 75 mls/hr IV . [id number] [facility] Rx#:[id number] Vancomycin 1,500 mg In 500 Sodium Chloride 0.9% 500 ml 500 ml @ 167 mls/hr IVPB Q8H [facility] Rx#: [id number] Other: Voiding Method Toilet # Voids 4 1 3 - Exam GENERAL DESCRIPTION: Middle-age female lying in bed in no distress RESPIRATORY SYSTEM: Unlabored breathing , decreased breath sounds at bases HEART: S1 S2 regular rate and rhythm , ABDOMEN: Soft , no tenderness EXTREMITIES: No edema feet - Labs CBC & Chem 7: 07/12/24 13:33 07/12/24 13:33 Labs: Microbiology - Last 24 Hours (Table) 07/13/24 13:25 Gram Stain - Preliminary Axilla - Left Wound Culture - Preliminary Assessment and Plan (1) Abscess of left axilla Current Visit: Yes Status: Acute Code(s): L02.412 - CUTANEOUS ABSCESS OF LEFT AXILLA SNOMED Code(s): 09380111 (2) Leukocytosis Current Visit: Yes Status: Acute Code(s): D72.829 - ELEVATED WHITE BLOOD CELL COUNT, UNSPECIFIED SNOMED Code(s): 488189238 Plan: 1patient presented to hospital with left axillary area swelling redness and did have some purulent drainage high clinical suspicious for an abscess possibly related to gram-positive skin rachel such as Staph aureus and possible MRSA 2-local culture has been obtained which are currently pending 3-ultrasound of the axilla did shows evidence of abscess will benefit from surgical evaluation to see if there is need for surgical drainage 4patient to continue with vancomycin pharmacy to dose target trough of 15 while waiting for the culture to finalize Dictation was produced using [employer] dictation software. please excuse any grammatical, word or spelling errors. Time with Patient: Less than 30
--- NOTE | 2024-07-14 16:37 | P.GSCN ---
History of Present Illness Consult date: 07/14/24 History of present illness: CHIEF COMPLAINT: Gastric bypass HISTORY OF PRESENT ILLNESS: The patient is a 33-year-old female who is status post revision from gastric sleeve to gastric bypass by Dr. Coker at [facility] for intractable nausea and vomiting. Patient reports for a moment she had felt well however the last 2 to 3 days she has had intractable nausea. She denies any dysphagia. She reports her symptoms feels like her initial sleeve. Patient reports that she does not recollect having a full vitamin check her procedure. Patient had not follow-up with her index surgeon due to being hospitalized here at [facility]. She denies any abdominal pain otherwise at the time of my assessment. PAST MEDICAL HISTORY: See list and reviewed PAST SURGICAL HISTORY: See list and reviewed MEDICATIONS: See list and reviewed ALLERGIES: See list and reviewed SOCIAL HISTORY: See list and reviewed FAMILY HISTORY: See list and reviewed REVIEW OF ORGAN SYSTEMS: CONSTITUTIONAL: No fevers or chills. Intentional weight loss with gastric sleeve/gastric bypass EYES: Denies any trouble with vision. No glasses. HEENT: No difficulties with hearing. No nosebleeds. No difficulty swallowing. RESPIRATORY: Past pulmonary embolism. Has chronic obstructive pulmonary disease. Has obstructive sleep apnea. CARDIOVASCULAR: Denies any chest pain, palpitations, or recent heart attacks. GASTROINTESTINAL: Has intractable nausea. Conversion from sleeve gastrectomy to bypass done at [facility] June 11, 2024. Has gastroesophageal reflux disease. GENITOURINARY: Denies any blood in urine or increased urinary frequency. NEUROLOGICAL: Denies any numbness or tingling along the distal extremities. No seizure disorders or headaches. MUSCULOSKELETAL: Has back pain, stiffness or joint arthritis. SKIN: No current skin cancer. No rash. PSYCHIATRIC: Has generalized anxiety disorder. Has bipolar disorder. Has depressive disorder. ENDOCRINE: Denies current thyroid disorders. Denies any blood sugar glucose intolerance. HEME/LYMPHATIC: Denies any lumps and bumps around the neck. Past pulmonary embolism. ALLERGY/IMMUNOLOGY: No immunoglobulin therapy. No immune deficiencies. BREAST: Denies current breast lumps, pain or nipple discharge. PHYSICAL EXAM: VITALS: Reviewed CONSTITUTIONAL: Well developed and in no acute distress. EYES: Conjuctivae without sclera icterus. Extraocular movements grossly intact. HEAD, EARS, NOSE, THROAT: Moist buccal mucosa. Head is atraumatic, normocephalic. Hears conversational speech. No nasal drainage. NECK: Supple. No JV distention. No thyroidomegaly. RESPIRATORY: Non-labored respirations and equal bilateral excursions. No gross wheezes. CARDIOVASCULAR: Palpable 2+ radial pulses. ABDOMEN: No peritonitis. Nontender. LYMPH: No neck lymphadenopathy. MUSCULOSKELETAL: No clubbing cyanosis or edema SKIN: Warm and well perfused with good skin turgor. NEUROLOGIC: Cranial nerves II through XII grossly intact. No focal or lateralizing signs. PSYCH: Appropriate affect. Alert and oriented to person, place and time. Displays appropriate insight. CLINCAL LABS: Reviewed. WBC elevated 11.3. Hemoglobin 12.7, normal. IMAGING: Independently reviewed. CT of the abdomen pelvis independently reviewed demonstrates no bowel obstruction. No mesenteric swirling or fighters of the internal hernia. Features consistent with gastric bypass. No acute intra-abdominal pathology identified. This is my independent interpretation. RADIOLOGY: Report reviewed. Presence of bilateral renal cyst. RECORDS: previous old records reviewed with multiple hospitalizations for nausea and abdominal pain. ASSESSMENT: 1. Intractable nausea vomiting 2. 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 3. Obesity excess calories, BMI 32.7 PLAN: 1. On review of her medical records, last thiamine level checked demonstrated normal levels in February 2024 however with her intractable nausea and vomiting she is at risk for thiamine deficiency. Recommend recheck of her thiamine level which may exacerbate intractable nausea and vomiting. 2. No acute surgical intervention or revisions were bypass or complications of her bypass identified at this time. 3. Patient advised to follow-up with her bariatric surgeon at [facility] when able 4. Recommend check magnesium levels as this may also precipitate intractable nausea and vomiting 5. May benefit from fluid hydration at least 2 to 3 L to correct intractable nausea vomiting ADVANCE DIRECTIVE: Thank you for this kind consultation. Past Medical History Past Medical History: GERD/Reflux, Pulmonary Embolus (PE), Sleep Apnea/CPAP/BIPAP Additional Past Medical History / Comment(s): iron defiency anemia, currently getting iron infusions, no cpap used, pulmonary embolism 02/13/24 History of Any Multi-Drug Resistant Organisms: None Reported Past Surgical History: Bariatric Surgery, Section, Cholecystectomy, Tubal Ligation, Uterine Ablation Additional Past Surgical History / Comment(s): 2008 AND 2015 (c/s) and 2010 (cholecyst). 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 gastric bypass 06/11/24 Past Anesthesia/Blood Transfusion Reactions: No Reported Reaction Past Psychological History: Anxiety, Bipolar, Depression Additional Psychological History / Comment(s): Pt on oral medications Smoking Status: Former smoker Past Alcohol Use History: None Reported Additional Past Alcohol Use History / Comment(s): Pt. states she quit smoking cigarettes , pt denies vaping at this time Past Drug Use History: None Reported - Past Family History Mother Family Medical History: Asthma, COPD, Diabetes Mellitus, Hypertension Additional Family Medical History / Comment(s): depression, anxiety, sleep apnea, Father Family Medical History: Hypertension Additional Family Medical History / Comment(s): arthritis Medications and Allergies Home Medications Medication Instructions Recorded Confirmed Type Omeprazole [PriLOSEC] 20 mg PO BID 04/04/24 07/12/24 History Asenapine Maleate [Saphris] 10 mg SUBLINGUAL HS 07/12/24 07/12/24 History Budesonide/Formoterol Fumarate 2 puff INHALATION RT-BID 07/12/24 07/12/24 Histor y [Symbicort 160-4.5 Mcg Inhaler] HYDROcodone/APAP 5-325MG [[place] 1 tab PO BID PRN 07/12/24 07/12/24 History 5-325] LORazepam [Ativan] 1 mg PO BID PRN 07/12/24 07/12/24 History QUEtiapine [SEROquel] 100 mg PO HS 07/12/24 07/12/24 History Sulfamethox-Tmp 200-40Mg/5Ml 20 ml PO BID 07/12/24 07/13/24 History [Bactrim Suspension] Tiotropium 2.5 Mcg/Puff [Spiriva 2 puff INHALATION RT-DAILY 07/12/24 07/12/24 History Respimat 2.5 Mcg] cephALEXin [Keflex Oral Susp] 500 mg PO QID 07/12/24 07/13/24 History traZODone HCL [Desyrel] 100 mg PO HS 07/12/24 07/13/24 History Allergies Allergy/AdvReac Type Severity Reaction Status Date / Time latex Allergy Rash/Hives Verified 07/12/24 17:55 morphine AdvReac Itching Verified 07/12/24 17:55 Surgical - Exam Vital Signs Temp Pulse Resp BP Pulse Ox 98.5 F 106 H 20 111/78 99 07/12/24 12:51 07/12/24 12:51 07/12/24 12:51 07/12/24 12:51 07/12/24 12:51 Results - Labs 07/12/24 13:33 07/12/24 13:33 Microbiology - Last 24 Hours (Table) 07/13/24 13:25 Gram Stain - Preliminary Axilla - Left Wound Culture - Preliminary
[2024-07-14] MEDS: SODIUM CHLORIDE 0.9% 2,000 ML IV ONE (16:45)
[2024-07-14] MEDS: DEXAMETHASONE SOD PHOSPHATE 4 MG/ML 1 ML VIAL IVP SCH (17:10)
--- NOTE | 2024-07-14 22:59 | PN ---
PROGRESS NOTE SUBJECTIVE: Geneva Chavez remains on vancomycin, Protonix, Seroquel, Spiriva inhaler, IV vancomycin, Saphris, Symbicort, heparin subcu. , hemoglobin is 12.7. Sodium is 138, potassium 4.3, BUN is less than 2, creatinine 0.4, GFR is greater than 90. Sugars 71. Amylase and lipase are normal. Not . She had axilla ultrasound which shows left axilla abscess 4 cm, possibly a boil. Came in with abdominal pelvic CT, which shows Glenn-en-Y gastric bypass surgery tract in the gastric pouch containing contrast and gas. No surrounding inflammation, enteric contrast reaches the mid bowel pass the anastomosis. Postsurgical changes bypass with redemonstration of a blind-ending tract emanating from the gastric pouch contains contrast. Development on bilateral ovarian cyst, IV antibiotics with axilla abscess are being ordered. Started on IV antibiotics for axilla abscess. Await Dr. Anne's recommendations. She has leukocytosis 11.3, purulent drainage from this abscess. Cultures are pending. Ultrasound to make sure nothing needs to be drained. Surgical consult. PROGNOSIS: Guarded. Please see further orders. MMODL / IJN: [id number] /
[2024-07-15] MEDS: VANCOMYCIN TROUGH DUE 1 EACH MISC MISCELLANE ONE (05:14)
[2024-07-15] MEDS: VANCOMYCIN 1,250 MG in SODIUM CHLORIDE 0.9% 250 ML IVPB SCH (05:29)
[2024-07-15] MEDS: MAGNESIUM SULFATE-D5W PMX 1 GM in DEXTROSE/WATER 1 100ML.BAG IVPB SCH (09:19)
--- NOTE | 2024-07-15 09:58 | P.PN ---
Subjective Progress Note Date: 07/15/24 CHIEF COMPLAINT: Gastric bypass HISTORY OF PRESENT ILLNESS: The patient is a 33-year-old female who is status post revision from gastric sleeve to gastric bypass by Dr. Coker at [facility] for intractable nausea and vomiting, June 11. Patient is over 5 to 6 weeks out from surgery. She reports nausea from her diet which are high sugar foods. Additionally, patient is taking trazodone and Seroquel. She still reports nausea. No diffuse abdominal pain. REVIEW OF ORGAN SYSTEMS: CONSTITUTIONAL: No fevers or chills. Intentional weight loss with gastric sleeve/gastric bypass GASTROINTESTINAL: Has intractable nausea. Conversion from sleeve gastrectomy to bypass done at [facility] June 11, 2024. Has gastroesophageal reflux disease. PSYCHIATRIC: Has generalized anxiety disorder. Has bipolar disorder. Has depressive disorder. HEME/LYMPHATIC: Denies any lumps and bumps around the neck. Past pulmonary embolism. PHYSICAL EXAM: VITALS: Reviewed CONSTITUTIONAL: Well developed and in no acute distress. EYES: Conjuctivae without sclera icterus. Extraocular movements grossly intact. HEAD, EARS, NOSE, THROAT: Moist buccal mucosa. Head is atraumatic, normocep halic. Hears conversational speech. No nasal drainage. RESPIRATORY: Non-labored respirations and equal bilateral excursions. No gross wheezes. CARDIOVASCULAR: Palpable 2+ radial pulses. ABDOMEN: No peritonitis. MUSCULOSKELETAL: No clubbing cyanosis or edema SKIN: Warm and well perfused with good skin turgor. NEUROLOGIC: Cranial nerves II through XII grossly intact. No focal or lateralizing signs. PSYCH: Appropriate affect. Alert and oriented to person, place and time. Displays appropriate insight. CLINCAL LABS: Reviewed. Magnesium low 1.5. Thiamine pending at this time. ASSESSMENT: 1. Intractable nausea vomiting 2. 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 3. Obesity excess calories, BMI 32.7 4. Hypomagnesia 5. Adverse drug reaction trazodone causing nausea 6. Adverse drug reactions Seroquel causing nausea PLAN: 1. Patient has multiple reasons for nausea including current hospital diet which is clear liquids. Clear liquid diet is high sugar and contraindicated in gastric bypass which causes dumping syndrome. Diet has been adjusted to bariatric full liquid diet. 2. On review of her home medications trazodone and Seroquel independently cause nausea. A potentiating effect with both medications may also contribute to her nausea. This should be monitored with her primary care provider. 3. Patient's magnesium is less than 2.0 which can also contribute to nausea. I have ordered 4 g magnesium to correct her hypomagnesia and as a treatment for he r chronic nausea. 4. Thiamine level is pending at this time and may be followed up as an outpatient. 5. Patient should show improvement of her symptoms with adjustment of her diet including medications and correction of magnesium with anticipated disposition in 24 to 48 hours. 6. Patient shall follow-up with her index surgeon at [facility] regarding her recent bariatric revision Objective - Vital Signs Vital signs: Vital Signs Temp 98.0 F 07/15/24 07:15 Pulse 76 07/15/24 07:15 Resp 16 07/15/24 07:15 BP 127/86 07/15/24 07:15 Pulse Ox 98 07/15/24 07:15 FiO2 Intake & Output 07/14/24 07/15/24 07/15/24 19:59 06:59 18:59 Intake Total Balance Intake: Intake, IV Titration Amount Sodium Chloride 0.9% 1, 000 ml @ 75 mls/hr IV . [id number] [facility] Rx#:[id number] Sodium Chloride 0.9% 2, 000 ml @ 999 mls/hr IV . Q2H1M [facility] Rx#:[id number] Vancomycin 1,500 mg In Sodium Chloride 0.9% 500 ml 500 ml @ 167 mls/hr IVPB Q8H [facility] Rx#: [id number] Other: Voiding Method # Voids # Bowel Movements - Labs CBC & Chem 7: 07/12/24 13:33 07/12/24 13:33 Labs: Microbiology - Last 24 Hours (Table) 07/13/24 13:25 Gram Stain - Final Axilla - Left Wound Culture - Final 07/13/24 13:53 Blood Culture - Preliminary Blood
--- NOTE | 2024-07-15 14:32 | P.PN ---
Subjective Progress Note Date: 07/15/24 Principal diagnosis: Reason for follow-up is left axillary abscess Patient is a 33-year-old -[place] female with a past medical history significant for reflux PE sleep apnea presenting to the hospital for evaluation of nausea and vomiting patient was also noted to have an abscess to the left axillary area prompting this consultation. On today's evaluation that is 07/15/2024, patient has been afebrile, patient is breathing comfortably and is currently on room air, patient denies having any significant cough no chest pain, patient denies nausea vomiting or diarrhea and no abdominal pain, the patient pain to the left axilla Has decreased and no further drainage. Patient did have Vanco trough of 20.4 local culture has been negative Objective - Vital Signs Vital signs: Vital Signs Temp 98.0 F 07/15/24 07:15 Pulse 76 07/15/24 07:15 Resp 16 07/15/24 07:15 BP 127/86 07/15/24 07:15 Pulse Ox 98 07/15/24 07:15 FiO2 Intake & Output 07/14/24 07/15/24 07/15/24 19:59 06:59 18:59 Intake Total Balance Intake: Intake, IV Titration Amount Sodium Chloride 0.9% 1, 000 ml @ 75 mls/hr IV . [id number] [facility] Rx#:[id number] Sodium Chloride 0.9% 2, 000 ml @ 999 mls/hr IV . Q2H1M [facility] Rx#:[id number] Vancomycin 1,500 mg In Sodium Chloride 0.9% 500 ml 500 ml @ 167 mls/hr IVPB Q8H [facility] Rx#: [id number] Other: Voiding Method # Voids 1 # Bowel Movements - Exam GENERAL DESCRIPTION: Middle-age female lying in bed in no distress RESPIRATORY SYSTEM: Unlabored breathing , decreased breath sounds at bases HEART: S1 S2 regular rate and rhythm , ABDOMEN: Soft , no tenderness EXTREMITIES: Left axilla overall induration has decreased minimal clear drainage - Labs CBC & Chem 7: 07/12/24 13:33 07/12/24 13:33 Labs: Microbiology - Last 24 Hours (Table) 07/13/24 13:25 Gram Stain - Final Axilla - Left Wound Culture - Final 07/13/24 13:53 Blood Culture - Preliminary Blood Assessment and Plan (1) Abscess of left axilla Current Visit: Yes Status: Acute Code(s): L02.412 - CUTANEOUS ABSCESS OF LEFT AXILLA SNOMED Code(s): 51153701 (2) Leukocytosis Current Visit: Yes Status: Acute Code(s): D72.829 - ELEVATED WHITE BLOOD CELL COUNT, UNSPECIFIED SNOMED Code(s): 412293034 Plan: 1patient presented to hospital with left axillary area swelling redness and did have some purulent drainage high clinical suspicious for an abscess possibly rel ated to gram-positive skin rachel such as Staph aureus and possible MRSA 2-local culture has been obtained which are currently pending 3-ultrasound of the axilla did shows evidence of abscess has been eval by general surgery 4patient local culture have been negative for MRSA we will discontinue vanc omycin start the patient on Unasyn transition to oral Augmentin on discharge midline order to be discontinued Dictation was produced using [employer] dictation software. please excuse any grammatical, word or spelling errors. Time with Patient: Less than 30
[2024-07-15] MEDS: AMPICILLIN-SULBACTAM 3 GM in SODIUM CHLORIDE 0.9% 100 ML IVPB SCH (17:08)
[2024-07-15] MEDS: SCOPOLAMINE 1 MG/72 HR PATCH TRANSDERM STA (19:46)
--- NOTE | 2024-07-15 23:14 | PN ---
PROGRESS NOTE SUBJECTIVE: A 33-year-old white female, who came in with nausea, vomiting, abscess to the left arm which broke open. Nausea and vomiting are improving. She has been afebrile. Denies any nausea, vomiting, or diarrhea. Pain to the left axilla has decreased. Blood cultures negative. Vanco trough is realized. OBJECTIVE: VITAL SIGNS: Reviewed. HEART: S1, S2. LUNGS: Transmitted upper sounds. GI: Soft. HEMATOLOGY: Negative Homans. ASSESSMENT: Status post gastric surgery with severe gastroparesis, abscess in left axilla, leukocytosis, some purulent drainage. Blood cultures are pending, which were negative. Local culture negative for MRSA. Unasyn, possible Augmentin and discharge in the next 24 to 48 hours. She has improved. MMODL / IJN: [id number] /
--- NOTE | 2024-07-16 11:43 | P.PN ---
Subjective Progress Note Date: 07/16/24 Principal diagnosis: Reason for follow-up is left axillary abscess Patient is a 33-year-old -[place] female with a past medical history significant for reflux PE sleep apnea presenting to the hospital for evaluation of nausea and vomiting patient was also noted to have an abscess to the left axillary area prompting this consultation. On today's evaluation that is 07/16/2024, Patient is afebrile this morning patient denies having any chest pain shortness of breath or cough, the patient is currently on room air, patient still having some nausea but no vomiting some epigastric discomfort but no diarrhea, pain to the left axillary area and decrease in intensity. Patient did have a magnesium of 2.1 culture remains to be negative Objective - Vital Signs Vital signs: Vital Signs Temp 98.1 F 07/16/24 07:00 Pulse 79 07/16/24 07:00 Resp 17 07/16/24 07:00 BP 118/75 07/16/24 07:00 Pulse Ox 93 L 07/16/24 07:00 FiO2 Intake & Output 07/15/24 07/16/24 07/16/24 18:59 06:59 18:59 Other: Voiding Method Toilet # Voids 6 1 - Exam GENERAL DESCRIPTION: Middle-age female lying in bed in no distress RESPIRATORY SYSTEM: Unlabored breathing , decreased breath sounds at bases HEART: S1 S2 regular rate and rhythm , ABDOMEN: Soft , no tenderness EXTREMITIES: Left axilla overall induration has decreased minimal clear drainage - Labs CBC & Chem 7: 07/12/24 13:33 07/12/24 13:33 Labs: Microbiology - Last 24 Hours (Table) 07/13/24 13:53 Blood Culture - Preliminary Blood 07/13/24 13:25 Gram Stain - Final Axilla - Left Wound Culture - Final Assessment and Plan (1) Abscess of left axilla Current Visit: Yes Status: Acute Code(s): L02.412 - CUTANEOUS ABSCESS OF LEFT AXILLA SNOMED Code(s): 66229731 (2) Leukocytosis Current Visit: Yes Status: Acute Code(s): D72.829 - ELEVATED WHITE BLOOD CELL COUNT, UNSPECIFIED SNOMED Code(s): 509946603 Plan: 1patient presented to hospital with left axillary area swelling redness and did have some purulent drainage high clinical suspicious for an abscess possibly related to gram-positive skin rachel such as Staph aureus and possible MRSA 2-local culture has been obtained which are currently pending 3-ultrasound of the axilla did shows evidence of abscess has been eval by general surgery 4patient local culture have been negative for MRSA 5we will keep the patient on Unasyn while inpatient transition to oral Augmentin on discharge Dictation was produced using [employer] dictation software. please excuse any grammatical, word or spelling errors. Time with Patient: Less than 30
--- NOTE | 2024-07-16 13:38 | P.PN ---
Subjective Progress Note Date: 07/16/24 CHIEF COMPLAINT: Nausea and vomiting HISTORY OF PRESENT ILLNESS: The patient is a 33-year-old female who is status post revision from gastric sleeve to gastric bypass by Dr. Coker at [facility] for intractable nausea and vomiting, June 11. Patient is over 5 to 6 weeks out from surgery. She reports nausea from her diet which are high sugar foods. Additionally, patient is taking trazodone and Seroquel. She still reports nausea. No diffuse abdominal pain. Patient reports the vomiting is better. She has been nauseous but again less than what was on admission. WBC 11.3 Hgb 12.7 platelets 243 magnesium improved from 1.5-2.1 thiamine level pending. Left axilla abscess noted on ultrasound. Patient reports that the drainage has improved. She reports that the pain and swelling have also improved in the left axilla. PHYSICAL EXAM: VITAL SIGNS: Reviewed GENERAL: Well-developed in no acute distress. HEENT: No sclera icterus. Extraocular movements grossly intact. Moist buccal mucosa. Head is atraumatic, normocephalic. Hears conversational speech. No nasal drainage. NECK: Supple without lymphadenopathy. CHEST: Non-labored respirations and equal bilateral excursions. CARDIOVASCULAR: Palpable 2+ radial pulses. ABDOMEN: Soft. Nondistended. No peritonitis MUSCULOSKELETAL: No clubbing or cyanosis. NEUROLOGIC: No focal or lateralizing signs. Cranial nerves II through XII grossly intact. PSYCH: Appropriate affect. Alert and oriented to person, place and time. SKIN: Well perfused. Good skin turgor. Extremities: Left axilla abscess no longer draining. Softer. No erythema. Nontender ASSESSMENT: 1. Intractable nausea vomiting 2. 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 3. Obesity excess calories, BMI 32.7 4. Hypomagnesia 5. Adverse drug reaction trazodone causing nausea 6. Adverse drug reactions Seroquel causing nausea 7. Left axilla abscess PLAN: 1. Patient has multiple reasons for nausea including current hospital diet which is clear liquids. Clear liquid diet is high sugar and contraindicated in gastric bypass which causes dumping syndrome. Diet has been adjusted to bariatric full liquid diet. 2. On review of her home medications trazodone and Seroquel independently cause nausea. A potentiating effect with both medications may also contribute to her nausea. This should be monitored with her primary care provider. 3. Low magnesium may also contributed to patient's nausea. This has been corrected. 4. Thiamine level is pending at this time and may be followed up as an outpatient. 5. Patient shall follow-up with her surgeon at [facility] regarding her recent bariatric revision 6. Continue antibiotics for left axilla abscess Physician Hydro Operator note has been reviewed by physician. Signing provider agrees with the documented findings, assessment, and plan of care. Objective - Vital Signs Vital signs: Vital Signs Temp 98.1 F 07/16/24 07:00 Pulse 79 07/16/24 07:00 Resp 17 07/16/24 07:00 BP 118/75 07/16/24 07:00 Pulse Ox 93 L 07/16/24 07:00 FiO2 Intake & Output 07/15/24 07/16/24 07/16/24 18:59 06:59 18:59 Other: Voiding Method Toilet # Voids 6 1 - Labs CBC & Chem 7: 07/12/24 13:33 07/12/24 13:33 Labs: Microbiology - Last 24 Hours (Table) 07/13/24 13:53 Blood Culture - Preliminary Blood 07/13/24 13:25 Gram Stain - Final Axilla - Left Wound Culture - Final
[2024-07-16] MEDS: AMOXIC-POT CLAV 875-125MG 1 EACH TAB PO SCH (21:10)
--- NOTE | 2024-07-16 21:12 | DS ---
DISCHARGE SUMMARY DISCHARGE MEDICATIONS: 1. Augmentin 875 one q.12 hours for 7 days. 2. Prilosec 20 b.i.d. 3. Spiriva 2.5 two puffs daily. 4. Saphris 10 mg sublingual p.r.n. 5. Seroquel 100 mg at night. 6. Desyrel 100 mg at night. 7. Ativan 1 mg p.o. b.i.d. p.r.n. 8. Hachita 5/325 b.i.d. p.r.n. 9. Symbicort 160/4.5 two puffs b.i.d. 10. Prognosis guarded. Ambulate as tolerated. She came in with abscess to the left axilla, which popped. Cultures were drained. Cultures negative for blood cultures. Dr. Anne has put her on Augmentin to go home on. She is status post reversal of her Damon procedure, which appears to be improved with her nausea and vomiting. Follow up as an outpatient. Diet regular. Condition stable. MMODL / IJN: [id number] /
[2024-07-17 02:43] VITALS: PULSE 76
[2024-07-17 08:04] VITALS: BP 149/95; RESP 18; TEMP 97.7
[2024-07-17 08:38] LABS: Basophils # (A) 0.02 X 10*3/uL (0.00-0.10); Basophils % (A) 0.1 %; Eosinophils # (A) 0.02 X 10*3/uL (0.04-0.35); Eosinophils % (A) 0.1 %; HGB 10.7 g/dL (12.0-15.0); Lymphocytes # (A) 1.07 X 10*3/uL (0.90-5.00); Lymphocytes % (A) 5.5 %; MCHC 33.4 g/dL (32.0-37.0); MCV 83.8 FL (80.0-97.0); Mean Platelet Volume 13.1 FL (9.5-12.2); Monocytes # (A) 0.25 X 10*3/uL (0.20-1.00); Monocytes % (A) 1.3 %; NRBC Per 100 WBC 0 X 10*3/uL (0.00-0.01); Neutrophils # (A) 18.12 X 10*3/uL (1.80-7.70); Neutrophils % (A) 92.4 %; Platelet Count 236 X 10*3/uL (140-440); RBC 3.82 X 10*6/uL (4.10-5.20); RDW 19.5 % (11.5-14.5); WBC 19.59 X 10*3/uL (4.50-10.00)
== END 2024-07-17 08:35 | disposition home or self-care (01) ==
LOC: EC 12:47 → 4SSUR 17:46
PROVIDERS: ADMIT Family Medicine; ATTEND Family Medicine
DX: R10.9 Unspecified abdominal pain (principal); R11.2 Nausea with vomiting, unspecified; G89.29 Other chronic pain; L02.412 Cutaneous abscess of left axilla; E66.01 Morbid (severe) obesity due to excess calories; J44.89 Other specified chronic obstructive pulmonary disease; J45.20 Mild intermittent asthma, uncomplicated; D72.829 Elevated white blood cell count, unspecified; T43.215A Adverse effect of selective serotonin and norepinephrine reuptake inhibitors, initial encounter; T43.595A Adverse effect of other antipsychotics and neuroleptics, initial encounter; K31.84 Gastroparesis; E83.42 Hypomagnesemia; D50.9 Iron deficiency anemia, unspecified; N83.201 Unspecified ovarian cyst, right side; N83.202 Unspecified ovarian cyst, left side; F31.9 Bipolar disorder, unspecified; F41.9 Anxiety disorder, unspecified; K21.9 Gastro-esophageal reflux disease without esophagitis; G47.30 Sleep apnea, unspecified; Z86.718 Personal history of other venous thrombosis and embolism; Z98.84 Bariatric surgery status; Z68.32 Body mass index [BMI] 32.0-32.9, adult; Z79.51 Long term (current) use of inhaled steroids; Z86.711 Personal history of pulmonary embolism; Z87.891 Personal history of nicotine dependence; Z88.5 Allergy status to narcotic agent; Z91.040 Latex allergy status
CPT/HCPCS: 96376 ×6; 96361 ×2; 96365; 96366 ×4; 96367; 96372 ×5; 96375; 99285; 36415; 94640 ×2; 36410; 76937; 84425; 80053; 82150; 83690; 83735 ×2; 85025 ×2; 80202; 85610; 85730; 84703; 87040; 87070; 87205; 76882; 74177; G0378 ×6; J3370 ×3; J1171 ×6; J1644 ×5; J1100 ×3; J2405 ×5; J3475; J0295 ×2; Q9967; J2470 ×5

== ENCOUNTER 2024-07-26 07:47 | Observation (INO) | payer OTHER ==
[2024-07-26] MEDS ORDERED: IOPAMIDOL CONTRAST (ORAL USE) VIAL PO PRN (08:09)
[2024-07-26] MEDS: SODIUM CHLORIDE 0.9% 1,000 ML IV STA (08:12)
[2024-07-26] MEDS: MORPHINE SULFATE 4 MG/ML SYRINGE IVP STA (08:14)
[2024-07-26] MEDS: ONDANSETRON 4 MG/2 ML VIAL IVP STA (08:14)
[2024-07-26] MEDS: PANTOPRAZOLE 40 MG/10 ML VIAL IVP STA (08:16)
[2024-07-26 08:21] LABS: Anisocytosis Slight; Basophils % (A) 0 %; Eosinophils # (A) 0.1 k/uL (0-0.7); Eosinophils % (A) 1 %; HCT 38.2 % (34.0-46.0); HGB 12.1 gm/dL (11.4-16.0); Hypochromasia Slight; Lymphocytes # (A) 2.2 k/uL (1.0-4.8); Lymphocytes % (A) 19 %; MCH 27.8 pg (25.0-35.0); MCHC 31.8 g/dL (31.0-37.0); MCV 87.5 fL (80.0-100.0); Mean Platelet Volume 9.1; Monocytes # (A) 0.5 k/uL (0-1.0); Monocytes % (A) 5 %; Neutrophils # (A) 8.8 k/uL (1.3-7.7); Neutrophils % (A) 74 %; Platelet Count 256 k/uL (150-450); Poikilocytosis Slight; RBC 4.37 m/uL (3.80-5.40); RDW 19.1 % (11.5-15.5); WBC 11.8 k/uL (3.8-10.6)
[2024-07-26 08:38] LABS: Partial Thromboplastin Time 24.1 sec (22.0-30.0); Prothrombin Time 10.9 sec (10.0-12.5)
--- NOTE | 2024-07-26 08:41 | XR ---
EXAMINATION TYPE: XR chest 2V DATE OF EXAM: 07/26/2024 8:28 AM COMPARISON: None CLINICAL INDICATION: Female, 33 years old with history of abdominal pain; TECHNIQUE: XR chest 2V Frontal and lateral views of the chest. FINDINGS: Lungs/Pleura: There is no evidence of pleural effusion, focal consolidation, or pneumothorax. Pulmonary vascularity: Unremarkable. Heart/mediastinum: Cardiomediastinal silhouette is unremarkable. Musculoskeletal: No acute osseous pathology. Other findings: None IMPRESSION: No acute cardiopulmonary disease/process. [facility], , 07/26/2024 8:38 AM
[2024-07-26] MEDS: HYDROmorphone 0.5 MG/0.5 ML SYRINGE IVP STA (09:19)
[2024-07-26 09:32] LABS: ALT 69 U/L (4-34); African American GFR (CKD) >90 (>60 ml/min/1.73 sqM); Albumin 3.7 g/dL (3.5-5.0); Amylase 46 U/L (30-110); Anion Gap 13 mmol/L; Blood Urea Nitrogen 7 mg/dL (7-17); Calcium 8.9 mg/dL (8.4-10.2); Carbon Dioxide 21 mmol/L (22-30); Chloride 104 mmol/L (98-107); Glucose 90 mg/dL (74-99); Lipase 46 U/L (23-300); Non-African American GFR(CKD) >90 (>60 ml/min/1.73 sqM); Sodium 138 mmol/L (137-145); Total Protein 6.5 g/dL (6.3-8.2)
[2024-07-26 09:36] LABS: AST 48 U/L (14-36); Alkaline Phosphatase 69 U/L (38-126); Potassium 4.4 mmol/L (3.5-5.1)
--- NOTE | 2024-07-26 09:53 | ED ---
General Adult HPI - General Chief complaint: Abdominal Pain Stated complaint: vomiting Time Seen by Provider: 07/26/24 08:02 Source: patient, RN notes reviewed, old records reviewed Mode of arrival: wheelchair Limitations: no limitations - History of Present Illness Initial comments: Patient is a 33-year-old female presenting with department complaining of acute on chronic abdominal pain. Has had multiple gastric sleeve surgeries in the [facility]. Most recent was back in May. Has been having abdominal discomfort since with nausea vomiting. Was recently seen here few weeks ago for similar complaints. Is still having intractable abdominal pain. States it is more epigastric in nature. Believes she is dehydrated. Denies constipation or diarrhea. No other acute complaints at this time. Denies a chest pain, shortness of breath. Denies fevers or chills. No urinary complaints. No vaginal discharge or bleeding. Presents for further evaluation. - Related Data Home Medications Medication Instructions Recorded Confirmed Omeprazole [PriLOSEC] 20 mg PO BID 04/04/24 07/12/24 Asenapine Maleate [Saphris] 10 mg SUBLINGUAL HS 07/12/24 07/12/24 Budesonide/Formoterol Fumarate 2 puff INHALATION RT-BID 07/12/24 07/12/24 [Symbicort 160-4.5 Mcg Inhaler] HYDROcodone/APAP 5-325MG [Katy 1 tab PO BID PRN 07/12/24 07/12/24 5-325] LORazepam [Ativan] 1 mg PO BID PRN 07/12/24 07/12/24 QUEtiapine [SEROquel] 100 mg PO HS 07/12/24 07/12/24 Tiotropium 2.5 Mcg/Puff [Spiriva 2 puff INHALATION RT-DAILY 07/12/24 07/12/24 Respimat 2.5 Mcg] traZODone HCL [Desyrel] 100 mg PO HS 07/12/24 07/13/24 Previous Rx's Medication Instructions Recorded Amoxic-Pot Clav 875-125Mg 1 each PO Q12HR 7 Days #14 tab 07/16/24 [Augmentin 875-125] Allergies Allergy/AdvReac Type Severity Reaction Status Date / Time latex Allergy Rash/Hives Verified 07/26/24 07:48 morphine AdvReac Itching Verified 07/26/24 07:48 Review of Systems ROS Statement: Those systems with pertinent positive or pertinent negative responses have been documented in the HPI. Review of Systems: CONST: Denies fever EYES: Denies blurry vision ENT: Denies nasal congestion C/V: Denies Chest pain RESP: Denies shortness of breath GI: Endorses abdominal pain, nausea, vomiting : Denies dysuria SKIN: Denies rash. MSK: Denies joint pain. NEURO: Denies headache ROS Other: All systems not noted in ROS Statement are negative. Past Medical History Past Medical History: GERD/Reflux, Pulmonary Embolus (PE), Sleep Apnea/CPAP/BIPAP Additional Past Medical History / Comment(s): iron defiency anemia, currently getting iron infusions, no cpap used, pulmonary embolism 02/13/24 History of Any Multi-Drug Resistant Organisms: None Reported Past Surgical History: Bariatric Surgery, Section, Cholecystectomy, Tubal Ligation, Uterine Ablation Additional Past Surgical History / Comment(s): 2008 AND 2015 (c/s) and 2010 (cholecyst). 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 gastric bypass 06/11/24 Past Anesthesia/Blood Transfusion Reactions: No Reported Reaction Past Psychological History: Anxiety, Bipolar, Depression Smoking Status: Former smoker Past Alcohol Use History: None Reported Past Drug Use History: None Reported - Past Family History Mother Family Medical History: Asthma, COPD, Diabetes Mellitus, Hypertension Additional Family Medical History / Comment(s): depression, anxiety, sleep apnea, Father Family Medical History: Hypertension Additional Family Medical History / Comment(s): arthritis General Exam - General Exam Comments Initial Comments: General: Appears in no acute distress. HEAD: Normal with no signs of head trauma. EYES: PERRLA, EOMI, conjunctiva normal, no discharge. ENT: Hearing grossly intact, normal oropharynx. RESPIRATORY: Clear breath sounds bilaterally. No wheezes, rales, or rhonchi. C/V: Regular rate and rhythm. S1 and S2 auscultated, no edema, peripheral pulses 2+ and intact throughout ABD: Abdomen is soft, nondistended. Mildly tender to palpation in the epigastric region. No guarding or rebound tenderness. No peritoneal signs. EXT: Normal range of motion, no obvious deformity SKIN: No rashes or lesions observed on exposed skin. NEURO: Alert and oriented x 4. Limitations: no limitations Course Vital Signs 07/26/24 07/26/2407/26/24 07:48 08:35 09:10 Temperature 98.1 F 98.1 F 98.0 F Pulse Rate 117 H 98 89 Respiratory 20 18 18 Rate Blood Pressure 133/89 133/89 146/98 O2 Sat by Pulse 99 99 100 Oximetry 07/26/24 10:05 Temperature Pulse Rate 81 Respiratory 16 Rate Blood Pressure 132/95 O2 Sat by Pulse 97 Oximetry Medical Decision Making - Medical Decision Making Was pt. sent in by a medical professional or institution (, PA, MEN'S BASKETBALL COACH, urgent care, hospital, or assisted...) When possible be specific @ -No Did you speak to anyone other than the patient for history (EMS, parent, family, police, friend...)? What history was obtained from this source @ -No Did you review nursing and triage notes (agree or disagree)? Why? @ -I reviewed and agree with nursing and triage notes Were old charts reviewed (outside hosp., previous admission, EMS record, old EKG, old radiological studies, urgent care reports/EKG's, assisted records)? Report findings @ -Old charts reviewed from recent visit in June 2024 when she was admitted for intractable abdominal pain with nausea and vomiting. Similar presentation is to today. Differential Diagnosis (chest pain, altered mental status, abdominal pain women, abdominal pain men, vaginal bleeding, weakness, fever, dyspnea, syncope, headache, dizziness, GI bleed, back pain, seizure, CVA, palpatations, mental health, musculoskeletal)? @ -Differential Abdominal Pain Women: Appendicitis, Cholecystitis, diverticulosis, ischemic bowel, pancreatitis, hepatitis, UTI, gastroenteritis, AAA, incarcerated hernia, bowel obstruction, constipation, inflammatory bowel, hepatitis, peptic ulcer disease, splenic infarction, perforated viscus, vulvitis, ovarian torsion, PID, kidney stone, placenta abruption, this is not meant to be an all-inclusive list EKG interpreted by me (3pts min.). @ -As above X-rays interpreted by me (1pt min.). @ -Chest x-ray reveals no obvious acute cardiopulmonary process. CT interpreted by me (1pt min.). @ -CT abdomen pelvis reveals no obvious acute intra-abdominal process. U/S interpreted by me (1pt. min.). @ -None done What testing was considered but not performed or refused? (CT, X-rays, U/S, labs)? Why? @ -None What meds were considered but not given or refused? Why? @ -None Did you discuss the management of the patient with other professionals (professionals i.e. , STE[employer], MEN'S BASKETBALL COACH, lab, RT, psych nurse, psychiatric social worker supervisor, vending machine host/hostess, teacher, special skills officer, pillowcase turner)? Give summary @ -Discussed with Dr. Molina who accepted the admission. Was smoking cessation discussed for >3mins.? @ -No Was critical care preformed (if so, how long)? @ -No Were there social determinants of health that impacted care today? How? (Homelessness, low income, unemployed, alcoholism, drug addiction, transportation, low edu. Level, literacy, decrease access to med. care, intermediate, rehab)? @ -No Was there de-escalation of care discussed even if they declined (Discuss DNR or withdrawal of care, Hospice)? DNR status @ -No What co-morbidities impacted this encounter? (DM, HTN, Smoking, COPD, CAD, Cancer, CVA, ARF, Chemo, Hep., AIDS, mental health diagnosis, sleep apnea, morbid obesity)? @ -Gastric sleeve x 2 Was patient admitted / discharged? Hospital course, mention meds given and route, prescriptions, significant lab abnormalities, going to OR and other pertinent info. @ -Based on the patient's presentation and physical exam, presents emergency department complaining of abdominal pain. She is also having intractable nausea and vomiting. Has a history of this. Attributes it to her gastric sleeve which she has been dealing with symptoms of this for many days. Presents for further evaluation at this time. Will obtain abdominal workup. Patient will be administered IV analgesia medications, IV fluids, Protonix, Zofran. She was in agreement this plan. We will obtain a CT abdomen pelvis with oral contrast. Vitals are within acceptable limits. Laboratory studies remarkable for slight leukocytosis of 11.8. Remainder the workup relatively unremarkable. Patient does have 4+ ketones in her urine. Urinalysis is not currently concerning for UTI. Chest x-ray unremarkable. EKG shows no signs of acute ischemia. CT abdomen pelvis reveals no obvious acute process. On reevaluation, patient is still nauseous. We will admit the patient for dehydration with intractable nausea and vomiting. Patient has seen Dr. Liu in the past at our facility and therefore he will be consulted for evaluation of the patient. This is who she requests. I spoke with the admitting provider, Dr. Molina who accepted the admission. Undiagnosed new problem with uncertain prognosis? @ -No Drug Therapy requiring intensive monitoring for toxicity (Heparin, Nitro, Insulin, Cardizem)? @ -No Were any procedures done? @ -No Diagnosis/symptom? @ -Dehydration, intractable nausea and vomiting Acute, or Chronic, or Acute on Chronic? @ -Acute Uncomplicated (without systemic symptoms) or Complicated (systemic symptoms)? @ -Complicated Side effects of treatment? @ -No Exacerbation, Progression, or Severe Exacerbation? @ -No Poses a threat to life or bodily function? How? (Chest pain, [place], [place], pneumonia, PE, COPD, DKA, ARF, appy, cholecystitis, CVA, Diverticulitis, Homicidal, Suicidal, threat to staff... and all critical care pts) @ -Potentially, yes - Lab Data Result diagrams: 07/26/24 08:14 07/26/24 08:14 Lab Results 07/26/24 07/26/24 07/26/24 Range/Units 08:14 08:14 08:14 WBC 11.8 H (3.8-10.6) k/uL RBC 4.37 (3.80-5.40) m/uL Hgb 12.1 (11.4-16.0) gm/dL Hct 38.2 (34.0-46.0) % MCV 87.5 (80.0-100.0) fL MCH 27.8 (25.0-35.0) pg MCHC 31.8 (31.0-37.0) g/dL RDW 19.1 H (11.5-15.5) % Plt Count 256 (150-450) k/uL MPV 9.1 Neutrophils % 74 % Lymphocytes % 19 % Monocytes % 5 % Eosinophils % 1 % Basophils % 0 % Neutrophils # 8.8 H (1.3-7.7) k/uL Lymphocytes # 2.2 (1.0-4.8) k/uL Monocytes # 0.5 (0-1.0) k/uL Eosinophils # 0.1 (0-0.7) k/uL Basophils # 0.0 (0-0.2) k/uL Hypochromasia Slight Poikilocytosis Slight Anisocytosis Slight PT 10.9 (10.0-12.5) sec INR 1.0 (<1.2) APTT 24.1 (22.0-30.0) sec Sodium (137-145) mmol/L Potassium (3.5-5.1) mmol/L Chloride (98-107) mmol/L Carbon Dioxide (22-30) mmol/L Anion Gap mmol/L BUN (7-17) mg/dL Creatinine (0.52-1.04) mg/dL Est GFR (CKD-EPI)AfAm (>60 ml/min/1.73 sqM) Est GFR (CKD-EPI)NonAf (>60 ml/min/1.73 sqM) Glucose (74-99) mg/dL Plasma Lactic Acid Case (0.7-2.0) mmol/L Calcium (8.4-10.2) mg/dL Total Bilirubin (0.2-1.3) mg/dL AST (14-36) U/L ALT (4-34) U/L Alkaline Phosphatase (38-126) U/L Total Protein (6.3-8.2) g/dL Albumin (3.5-5.0) g/dL Amylase (30-110) U/L Lipase (23-300) U/L Urine Color Yellow Urine Appearance Clear (Clear) Urine pH 6.5 (5.0-8.0) Ur Specific [place] 1.023 (1.001-1.035) Urine Protein 1+ H (Negative) Urine Glucose (UA) Negative (Negative) Urine Ketones 4+ H (Negative) Urine Blood Negative (Negative) Urine Nitrite Negative (Negative) Urine Bilirubin 1+ H (Negative) Urine Urobilinogen 4.0 (<2.0) mg/dL Ur Leukocyte Esterase Trace H (Negative) Urine RBC 3 (0-5) /hpf Urine WBC 9 H (0-5) /hpf Ur Squamous Epith Cells 4 (0-4) /hpf Urine Bacteria Rare H (None) /hpf Hyaline Casts 1 (0-2) /lpf Urine Mucus Many H (None) /hpf 07/26/24 07/26/24 Range/Units 08:14 08:14 WBC (3.8-10.6) k/uL RBC (3.80-5.40) m/uL Hgb (11.4-16.0) gm/dL Hct (34.0-46.0) % MCV (80.0-100.0) fL MCH (25.0-35.0) pg MCHC (31.0-37.0) g/dL RDW (11.5-15.5) % Plt Count (150-450) k/uL MPV Neutrophils % % Lymphocytes % % Monocytes % % Eosinophils % % Basophils % % Neutrophils # (1.3-7.7) k/uL Lymphocytes # (1.0-4.8) k/uL Monocytes # (0-1.0) k/uL Eosinophils # (0-0.7) k/uL Basophils # (0-0.2) k/uL Hypochromasia Poikilocytosis Anisocytosis PT (10.0-12.5) sec INR (<1.2) APTT (22.0-30.0) sec Sodium 138 (137-145) mmol/L Potassium 4.4 (3.5-5.1) mmol/L Chloride 104 (98-107) mmol/L Carbon Dioxide 21 L (22-30) mmol/L Anion Gap 13 mmol/L BUN 7 (7-17) mg/dL Creatinine 0.39 L (0.52-1.04) mg/dL Est GFR (CKD-EPI)AfAm >90 (>60 ml/min/1.73 sqM) Est GFR (CKD-EPI)NonAf >90 (>60 ml/min/1.73 sqM) Glucose 90 (74-99) mg/dL Plasma Lactic Acid Case 0.9 (0.7-2.0) mmol/L Calcium 8.9 (8.4-10.2) mg/dL Total Bilirubin 1.0 (0.2-1.3) mg/dL AST 48 H (14-36) U/L ALT 69 H (4-34) U/L Alkaline Phosphatase 69 (38-126) U/L Total Protein 6.5 (6.3-8.2) g/dL Albumin 3.7 (3.5-5.0) g/dL Amylase 46 (30-110) U/L Lipase 46 (23-300) U/L Urine Color Urine Appearance (Clear) Urine pH (5.0-8.0) Ur Specific [place] (1.001-1.035) Urine Protein (Negative) Urine Glucose (UA) (Negative) Urine Ketones (Negative) Urine Blood (Negative) Urine Nitrite (Negative) Urine Bilirubin (Negative) Urine Urobilinogen (<2.0) mg/dL Ur Leukocyte Esterase (Negative) Urine RBC (0-5) /hpf Urine WBC (0-5) /hpf Ur Squamous Epith Cells (0-4) /hpf Urine Bacteria (None) /hpf Hyaline Casts (0-2) /lpf Urine Mucus (None) /hpf - EKG Data -: EKG Interpreted by Me EKG Comments: 12-lead Electrocardiogram Interpretation Note EKG was reviewed and interpreted by myself. 12-lead ECG performed at 0810 is interpreted by me as revealing normal sinus rhythm at a rate of 93 beats per minute. [place] is normal. [place] interval is 175 ms, QRS duration is 86 ms, QTc is 469 ms.. There were no ST or T wave abnormalities to suggest myocardial isc hemia or injury. R wave progression across the precordium was satisfactory. By my interpretation this EKG is non-diagnostic for acute ischemia. Disposition Clinical Impression: Dehydration, Intractable nausea and vomiting Disposition: ADMITTED IP TO THIS HOSP Condition: Stable Referrals: Justin Molina MD [Primary Care Provider] - 1-2 days Time of Disposition: 10:42
[2024-07-26 09:55] LABS: Appearance,Urine Clear (Clear); Bacteria,Urine Rare /hpf; Bilirubin,Urine 1+ (Negative); Blood,Urine Negative (Negative); Color,Urine Yellow; Glucose,Urine (UA) Negative (Negative); Hyaline Casts,Urine 1 /lpf (0-2); Ketones,Urine 4+ (Negative); Leukocyte Esterase,Urine Trace (Negative); Mucus,Urine Many /hpf; Nitrite,Urine Negative (Negative); PH, Urine 6.5 (5.0-8.0); Protein,Urine 1+ (Negative); RBC,Urine 3 /hpf (0-5); Specific Gravity,Urine 1.023 (1.001-1.035); Squamous Epithelial Cell,Urine 4 /hpf (0-4); WBC,Urine 9 /hpf (0-5)
--- NOTE | 2024-07-26 10:30 | CT ---
EXAMINATION TYPE: CT abdomen pelvis w con DATE OF EXAM: 07/26/2024 COMPARISON: 07/12/2024 CLINICAL INDICATION: Female, 33 years old with history of abdominal pain. history of gastric sleeve; [facility], TECHNIQUE: Multiple axial images are obtained through the abdomen and pelvis following nonionic IV contrast. FINDINGS: The lung bases are clear. There are stable postsurgical changes involving the stomach. There is surgical absence of the gallbladder.. There is no biliary ductal dilatation. There is no focal mass or organomegaly involving the liver, pancreas, spleen or adrenal glands. There is no solid renal mass or hydronephrosis and there is homogeneous contrast enhancement of the r enal parenchyma. The caliber the abdominal aorta is normal is no retroperitoneal adenopathy or hemorr shivani. The bowel loops are normal in caliber and there is no evidence of dilatation or obstruction. No infla mmatory changes are identified in the bowel wall or mesentery. There is no free intraperitoneal air or fluid. No pelvic mass, free fluid, abscess or adenopathy. The ovarian cyst seen on the prior study have decr eased in size and most likely represent normal follicular cysts. The osseous structures and soft tissues are intact. IMPRESSION: 1. Postsurgical changes as described above. 2. No acute changes within the abdomen or pelvis. [facility], , 07/26/2024 10:28 AM
[2024-07-26] MEDS ORDERED: NALOXONE 0.4 MG/ML 1 ML VIAL IV PRN (10:47)
[2024-07-26] MEDS: SODIUM CHLORIDE 0.9% 1,000 ML IV SCH (11:02)
[2024-07-26] MEDS: HYDROmorphone 0.5 MG/0.5 ML SYRINGE IVP PRN (13:09)
--- NOTE | 2024-07-26 14:27 | P.GSCN ---
History of Present Illness Consult date: 07/26/24 History of present illness: CHIEF COMPLAINT: Nausea and abdominal pain HISTORY OF PRESENT ILLNESS: This is a 33-year-old female who presents to the hospital with abdominal pain and nausea. Patient has chronic issues with abdominal pain and nausea. Patient with a known history of a sleeve gastrectomy in December 2023. Since then she had been dealing with abdominal pain and recurrent nausea and recurrent admissions. Followed at [facility] and underwent a gastric bypass on 06/11/24. Patient continues to have nausea and abdominal pain. She reports decreased appetite due to the severe nausea. Patient reports that she has been following up with her surgeons at [facility]. Patient seen and examined with Dr. Liu PAST MEDICAL HISTORY: GERD/Reflux, Pulmonary Embolus (PE), Sleep Apnea/CPAP/BIPAP, iron deficiency anemia PE in February 2024 PAST SURGICAL HISTORY: Bariatric Surgery, Section, Cholecystectomy, Tubal Ligation, Uterine Ablation, 2008 AND 2015 (c/s) and 2010 (cholecyst). 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 gastric bypass 06/11/24 MEDICATIONS: See below ALLERGIES: See below SOCIAL HISTORY: No illicit drug use. REVIEW OF SYSTEMS: CONSTITUTIONAL: Denies fever or chills. HEENT: Denies blurred vision, vision changes, or eye pain. Denies hemoptysis CARDIOVASCULAR: Denies chest pain or pressure. RESPIRATORY: No shortness of breath. GASTROINTESTINAL: See HPI for pertinent findings HEMATOLOGIC: Denies bleeding disorders. GENITOURINARY: Denies any blood in urine or increased urinary frequency. SKIN: Denies pruitis. Denies rash. PHYSICAL EXAM: VITAL SIGNS: Reviewed GENERAL: Well-developed in no acute distress. HEENT: No sclera icterus. Extraocular movements grossly intact. Moist buccal mucosa. Head is atraumatic, normocephalic. No nasal drainage. ABDOMEN: Soft. Nondistended. Tender. Incision sites clean dry and intact and healed. No guarding or rebound NEUROLOGIC: Alert and oriented. Cranial nerves II through XII grossly intact. LABORATORY DATA: WBC 11.8 Hgb 12.1 platelets 256 INR 1.0 Sodium 138 potassium 4.4 creatinine 0.39 AST 48 ALT 69 total bili 1.0 IMAGING: CT scan abdomen and pelvis no acute changes within the abdomen pelvis. ASSESSMENT: 1. Acute on Chronic abdominal pain with chronic nausea 2. Recent gastric bypass surgery June 11, 2024 PLAN: -Continue IV fluids -Continue clear liquid diet -Check labs in a.m. Physician Plumbing Hardware Assembler note has been reviewed by physician. Signing provider agrees with the documented findings, assessment, and plan of care. Past Medical History Past Medical History: GERD/Reflux, Pulmonary Embolus (PE), Sleep Apnea/CPAP/BIPAP Additional Past Medical History / Comment(s): iron defiency anemia, currently getting iron infusions, no cpap used, pulmonary embolism 02/13/24 History of Any Multi-Drug Resistant Organisms: None Reported Past Surgical History: Bariatric Surgery, Section, Cholecystectomy, Tubal Ligation, Uterine Ablation Additional Past Surgical History / Comment(s): 2008 AND 2015 (c/s) and 2010 (cholecyst). 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 gastric bypass 06/11/24 Past Anesthesia/Blood Transfusion Reactions: No Reported Reaction Past Psychological History: Anxiety, Bipolar, Depression Smoking Status: Former smoker Past Alcohol Use History: None Reported Past Drug Use History: None Reported - Past Family History Mother Family Medical History: Asthma, COPD, Diabetes Mellitus, Hypertension Additional Family Medical History / Comment(s): depression, anxiety, sleep apnea, Father Family Medical History: Hypertension Additional Family Medical History / Comment(s): arthritis Medications and Allergies Home Medications Medication Instructions Recorded Confirmed Type Asenapine Maleate [Saphris] 10 mg SUBLINGUAL HS 07/12/24 07/26/24 History Budesonide/Formoterol Fumarate 2 puff INHALATION RT-BID 07/12/24 07/26/24 History [Symbicort 160-4.5 Mcg Inhaler] HYDROcodone/APAP 5-325MG [[place] 1 tab PO BID PRN 07/12/24 07/26/24 History 5-325] LORazepam [Ativan] 1 mg PO BID PRN 07/12/24 07/26/24 History QUEtiapine [SEROquel] 100 mg PO HS 07/12/24 07/26/24 History Tiotropium 2.5 Mcg/Puff [Spiriva 2 puff INHALATION RT-DAILY 07/12/24 07/26/24 History Respimat 2.5 Mcg] traZODone HCL [Desyrel] 100 mg PO HS 07/12/24 07/26/24 History Naloxone HCl [Narcan] 4 mg NASAL ONCE PRN 07/26/24 07/26/24 History Omeprazole [PriLOSEC] 40 mg PO DAILY 07/26/24 07/26/24 History Ondansetron [Zofran] 4 mg PO BID PRN 07/26/24 07/26/24 History oxyCODONE HCL [Roxicodone] 5 mg PO Q8H PRN 07/26/24 07/26/24 History Allergies Allergy/AdvReac Type Severity Reaction Status Date / Time latex Allergy Rash/Hives Verified 07/26/24 11:35 morphine AdvReac Itching Verified 07/26/24 11:35 Surgical - Exam Vital Signs Temp Pulse Resp BP Pulse Ox 98.1 F 117 H 20 133/89 99 07/26/24 07:48 07/26/24 07:48 07/26/24 07:48 07/26/24 07:48 07/26/24 07:48 Results - Labs 07/26/24 08:14 07/26/24 08:14 Abnormal Lab Results - Last 24 Hours (Table) 07/26/24 07/26/24 07/26/24 Range/Units 08:14 08:14 08:14 WBC 11.8 H (3.8-10.6) k/uL RDW 19.1 H (11.5-15.5) % Neutrophils # 8.8 H (1.3-7.7) k/uL Carbon Dioxide 21 L (22-30) mmol/L Creatinine 0.39 L (0.52-1.04) mg/dL AST 48 H (14-36) U/L ALT 69 H (4-34) U/L Urine Protein 1+ H (Negative) Urine Ketones 4+ H (Negative) Urine Bilirubin 1+ H (Negative) Ur Leukocyte Esterase Trace H (Negative) Urine WBC 9 H (0-5) /hpf Urine Bacteria Rare H (None) /hpf Urine Mucus Many H (None) /hpf Diabetes panel 07/26/24 Range/Units 08:14 Sodium 138 (137-145) mmol/L Potassium 4.4 (3.5-5.1) mmol/L Chloride 104 (98-107) mmol/L Carbon Dioxide 21 L (22-30) mmol/L BUN 7 (7-17) mg/dL Creatinine 0.39 L (0.52-1.04) mg/dL Glucose 90 (74-99) mg/dL Calcium 8.9 (8.4-10.2) mg/dL AST 48 H (14-36) U/L ALT 69 H (4-34) U/L Alkaline Phosphatase 69 (38-126) U/L Total Protein 6.5 (6.3-8.2) g/dL Albumin 3.7 (3.5-5.0) g/dL Calcium panel 07/26/24 Range/Units 08:14 Calcium 8.9 (8.4-10.2) mg/dL Albumin 3.7 (3.5-5.0) g/dL Pituitary panel 07/26/24 Range/Units 08:14 Sodium 138 (137-145) mmol/L Potassium 4.4 (3.5-5.1) mmol/L Chloride 104 (98-107) mmol/L Carbon Dioxide 21 L (22-30) mmol/L BUN 7 (7-17) mg/dL Creatinine 0.39 L (0.52-1.04) mg/dL Glucose 90 (74-99) mg/dL Calcium 8.9 (8.4-10.2) mg/dL Adrenal panel 07/26/24 Range/Units 08:14 Sodium 138 (137-145) mmol/L Potassium 4.4 (3.5-5.1) mmol/L Chloride 104 (98-107) mmol/L Carbon Dioxide 21 L (22-30) mmol/L BUN 7 (7-17) mg/dL Creatinine 0.39 L (0.52-1.04) mg/dL Glucose 90 (74-99) mg/dL Calcium 8.9 (8.4-10.2) mg/dL Total Bilirubin 1.0 (0.2-1.3) mg/dL AST 48 H (14-36) U/L ALT 69 H (4-34) U/L Alkaline Phosphatase 69 (38-126) U/L Total Protein 6.5 (6.3-8.2) g/dL Albumin 3.7 (3.5-5.0) g/dL
[2024-07-26] MEDS: ONDANSETRON 4 MG/2 ML VIAL IVP PRN (16:19)
[2024-07-26] MEDS ORDERED: HYDROcodone/APAP 5-325MG 1 EACH TAB PO PRN (17:42)
[2024-07-26] MEDS ORDERED: ONDANSETRON 4 MG TAB PO PRN (17:42)
[2024-07-26] MEDS: IPRATROPIUM-ALBUTEROL 3 ML NEB INHALATION SCH (19:51)
[2024-07-26] MEDS: traZODone HCL 100 MG TAB PO SCH (20:00)
[2024-07-26] MEDS: ASENAPINE 5 MG TAB SUBLINGUAL SCH (20:00)
[2024-07-26] MEDS: QUEtiapine 100 MG TAB PO SCH (20:00)
--- NOTE | 2024-07-27 07:53 | HP ---
HISTORY AND PHYSICAL A 33-year-old female with recent gastric surgery came in with nausea, vomiting, progressive pain. Surgical consultation is intact. No GI coverage is on this week. She has been dealing with abdominal pain in current admission. She went home with clear liquid diet. She had a gastric bypass on June 11, 2024. Continues to have nausea and abdominal pains. She has been transferred to the [facility]. PAST MEDICAL HISTORY: GERD, pulmonary embolism, sleep apnea, iron deficiency anemia, . SURGICAL HISTORY: Bariatric surgery, , cholecystectomy, tubal ligation, sleeve gastrectomy, gastric bypass. MEDICATIONS: See list. ALLERGIES: See below. SOCIAL HISTORY: No drug use or smoking. Does use marijuana p.r.n. PHYSICAL EXAMINATION: GENERAL: She is obese, white female, in no acute distress. VITAL SIGNS: Reviewed. PSYCH: Fair mood and affect. NEUROLOGIC: Cranial nerves intact. HEENT: Pupils equal, round, and reactive. GI: Soft. INTEGUMENT: Dry skin turgor. ABDOMEN: Incision clean, dry, intact. LABS: Reviewed. ASSESSMENT: Acute on chronic abdominal pain, chronic nausea and vomiting, gastric bypass surgery with revision in May 2024, IV fluids, clear liquids. Check labs in the morning, possibly another EGD or barium swallow will be done to see if she has any stenosis. Continue current treatment. Prognosis, guarded. MMODL / IJN: [id number] /
[2024-07-27] MEDS: PANTOPRAZOLE 40 MG/10 ML VIAL IV SCH (08:07)
[2024-07-27] MEDS ORDERED: NON FORMULARY DRUG (Omeprazole 40 MG Capsule.Dr) PO SCH (09:00)
--- NOTE | 2024-07-27 10:07 | XR ---
EXAMINATION TYPE: XR abdomen 1V DATE OF EXAM: 07/27/2024 9:18 AM COMPARISON: 02/27/2024. 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 FINDINGS: Oral contrast is seen throughout the colon predominantly the ascending and transverse colon . This obscures portions of the abdomen. Scattered gaseous dilation of bowel present. Right upper renee drant cholecystectomy clips. There is no evidence for organomegaly or pneumoperitoneum. The osseous structures are intact. No ab normal calcifications are present. IMPRESSION: Oral contrast is seen throughout the colon involving ascending and transverse colon obscuring portion s of the abdomen. Markedly distended urinary bladder with excreted IV contrast. [facility], , 07/27/2024 10:05 AM
[2024-07-27 10:44] LABS: Basophils # (A) 0.03 X 10*3/uL (0.00-0.10); Basophils % (A) 0.3 %; Eosinophils # (A) 0.12 X 10*3/uL (0.04-0.35); Eosinophils % (A) 1.2 %; HGB 10.2 g/dL (12.0-15.0); MCH 27.1 pg (27.0-32.0); MCHC 31.9 g/dL (32.0-37.0); MCV 84.9 FL (80.0-97.0); Mean Platelet Volume 11.3 FL (9.5-12.2); Monocytes # (A) 0.67 X 10*3/uL (0.20-1.00); Monocytes % (A) 6.7 %; NRBC Per 100 WBC 0 X 10*3/uL (0.00-0.01); Neutrophils # (A) 6.76 X 10*3/uL (1.80-7.70); Neutrophils % (A) 67.5 %; Platelet Count 245 X 10*3/uL (140-440); RBC 3.77 X 10*6/uL (4.10-5.20); WBC 10.01 X 10*3/uL (4.50-10.00)
[2024-07-27 10:58] LABS: ALT 41 U/L (8-44); AST 18 U/L (13-35); Albumin 2.9 g/dL (3.8-4.9); Albumin/Globulin Ratio 1.45 Ratio (1.60-3.17); Alkaline Phosphatase 63 U/L (41-126); BUN/Creat Ratio 13.75 Ratio (12.00-20.00); Blood Urea Nitrogen 5.5 mg/dL (9.0-27.0); Calcium 8.4 mg/dL (8.7-10.3); Carbon Dioxide 26.3 mmol/L (21.6-31.8); Chloride 104 mmol/L (96-109); Glucose 74 mg/dL (70-110); Sodium 142 mmol/L (135-145); Total Bilirubin 0.3 mg/dL (0.3-1.2); Total Protein 4.9 g/dL (6.2-8.2)
[2024-07-27] MEDS ORDERED: Potassium Replacement Protocol 1 EACH MISC MISCELLANE PRN (12:27)
--- NOTE | 2024-07-27 14:01 | P.PN ---
Subjective Progress Note Date: 07/27/24 SURGICAL PROGRESS NOTE CHIEF COMPLAINT: Nausea vomiting HISTORY OF PRESENT ILLNESS: Patient reports she has had no further vomiting. She has had continuous nausea. She has tolerated the clear liquids. Small bowel follow-through for today was canceled due to her having a recent CAT scan. Abdominal x-ray had reported oral contrast is seen throughout the colon involving the ascending and transverse colon. Afebrile. WBC 11 down to 10 Hgb 10.2 potassium 3.0 thiamine level pending PHYSICAL EXAM: VITAL SIGNS: Reviewed. GENERAL: Well-developed in no acute distress. ABDOMEN: Soft. Nondistended. Mild epigastric tenderness NEUROLOGIC: Alert and oriented. Cranial nerves II through XII grossly intact. ASSESSMENT: 1. Acute on Chronic abdominal pain with chronic nausea 2. Recent gastric bypass surgery June 11, 2024 PLAN: -Small bowel follow-through canceled for today due to patient's recent CAT scan -Check magnesium level -Follow-up on thiamine level -Continue clear liquids -Medicine service replacing potassium Physician Blending Tank Tender note has been reviewed by physician. Signing provider agrees with the documented findings, assessment, and plan of care. Objective - Vital Signs Vital signs: Vital Signs Temp 98.3 F 07/27/24 13:40 Pulse 87 07/27/24 13:40 Resp 16 07/27/24 13:40 BP 119/77 07/27/24 13:40 Pulse Ox 98 07/27/24 13:40 FiO2 Intake & Output 07/26/24 07/27/24 07/27/24 18:59 06:59 18:59 Intake Total 0 Balance 0 Weight 81.193 kg Intake: Oral 0 Other: Voiding Method Toilet # Voids 2 4 - Labs CBC & Chem 7: 07/27/24 06:34 07/27/24 06:34 Labs: Abnormal Lab Results - Last 24 Hours (Table) 07/27/24 07/27/24 Range/Units 06:34 06:34 WBC 10.01 H (4.50-10.00) X 10*3/uL RBC 3.77 L (4.10-5.20) X 10*6/uL Hgb 10.2 L (12.0-15.0) g/dL Hct 32.0 L (37.2-46.3) % MCHC 31.9 L (32.0-37.0) g/dL RDW 21.0 H (11.5-14.5) % Potassium 3.0 L (3.5-5.5) mmol/L BUN 5.5 L (9.0-27.0) mg/dL Creatinine 0.4 L (0.6-1.5) mg/dL Calcium 8.4 L (8.7-10.3) mg/dL Total Protein 4.9 L (6.2-8.2) g/dL Albumin 2.9 L (3.8-4.9) g/dL Albumin/Globulin Ratio 1.45 L (1.60-3.17) Ratio
[2024-07-27] MEDS: POTASSIUM CHLORIDE ER 20 MEQ TAB.ER PO SCH ×2 (14:03→20:46)
[2024-07-27] MEDS: LORazepam 1 MG TAB PO PRN (21:28)
--- NOTE | 2024-07-28 06:41 | PN ---
PROGRESS NOTE SUBJECTIVE: She was admitted with gastroparesis, nausea, vomiting. She could not finish her upper GI small bowel follow-through due to vomiting. We are going to keep her on clear liquids, although we cannot say if she can keep anything down. OBJECTIVE: VITAL SIGNS: Blood pressure 134/88, temp 98.6, pulse 65, respiratory rate 18, sat 96 on room air. CARDIOVASCULAR: S1 and S2. LUNGS: Transmitted upper sounds. GI: Soft. HEMATOLOGY: Negative for Homans. NEUROLOGIC: Cranial nerves intact. Continue current treatments. Prognosis guarded. Ambulate as tolerated. If she does not keep food down, she wants to go down to [facility] for a revision of her bariatric surgery that was already fixed one time by them, but she is not any better, so has progressive gastroparesis, nausea, and vomiting. Also get GI consultation. Clinically, she is stable, vital signs are stable. MMODL / IJN: [id number] /
[2024-07-28 09:47] LABS: Chloride 107 mmol/L (96-109); Glucose 72 mg/dL (70-110); Potassium 3.8 mmol/L (3.5-5.5); Sodium 144 mmol/L (135-145)
[2024-07-28 09:48] LABS: ALT 32 U/L (8-44); AST 17 U/L (13-35); Albumin 3.1 g/dL (3.8-4.9); Albumin/Globulin Ratio 1.63 Ratio (1.60-3.17); Alkaline Phosphatase 64 U/L (41-126); Calcium 8.5 mg/dL (8.7-10.3); Carbon Dioxide 23.3 mmol/L (21.6-31.8); Globulin 1.9 g/dL (1.6-3.3); Total Bilirubin 0.3 mg/dL (0.3-1.2)
[2024-07-28 09:52] LABS: Basophils # (A) 0.02 X 10*3/uL (0.00-0.10); Basophils % (A) 0.2 %; Eosinophils # (A) 0.14 X 10*3/uL (0.04-0.35); Eosinophils % (A) 1.4 %; HCT 32.4 % (37.2-46.3); HGB 10.2 g/dL (12.0-15.0); Lymphocytes # (A) 2.62 X 10*3/uL (0.90-5.00); Lymphocytes % (A) 26.5 %; MCH 27.5 pg (27.0-32.0); MCHC 31.5 g/dL (32.0-37.0); MCV 87.3 FL (80.0-97.0); Mean Platelet Volume 12.1 FL (9.5-12.2); Monocytes % (A) 7.1 %; NRBC Per 100 WBC 0 X 10*3/uL (0.00-0.01); Neutrophils # (A) 6.38 X 10*3/uL (1.80-7.70); Neutrophils % (A) 64.5 %; Platelet Count 255 X 10*3/uL (140-440); RBC 3.71 X 10*6/uL (4.10-5.20); RDW 21.5 % (11.5-14.5); WBC 9.89 X 10*3/uL (4.50-10.00)
--- NOTE | 2024-07-28 13:40 | P.PN ---
Subjective Progress Note Date: 07/28/24 No acute events overnight. No worsening abdominal pain. No N/V. No F/C. No SOB or CP. Toleraging CLD. Admits to flatus and small BM. Objective - Vital Signs Vital signs: Vital Signs Temp 98.3 F 07/28/24 07:21 Pulse 85 07/28/24 07:21 Resp 16 07/28/24 07:21 BP 125/82 07/28/24 07:21 Pulse Ox 98 07/28/24 07:21 FiO2 Intake & Output 07/27/24 07/28/24 07/28/24 18:59 06:59 18:59 Intake Total 600 120 Balance 600 120 Intake: Oral 600 120 Other: # Voids 4 2 - Exam Gen: AxO, NAD Pulm: non-labored respirations Abd: soft, non-tender, non-distended. No guarding/rebound/rigidity Extrem: no edema seen - Labs CBC & Chem 7: 07/28/24 03:43 07/28/24 03:43 Labs: Abnormal Lab Results - Last 24 Hours (Table) 07/27/24 07/28/24 07/28/24 Range/Units 19:14 03:43 03:43 RBC 3.71 L (4.10-5.20) X 10*6/uL Hgb 10.2 L (12.0-15.0) g/dL Hct 32.4 L (37.2-46.3) % MCHC 31.5 L (32.0-37.0) g/dL RDW 21.5 H (11.5-14.5) % Potassium 3.3 L (3.5-5.1) mmol/L Anion Gap 13.70 H (4.00-12.00) mmol/L BUN 5.0 L (9.0-27.0) mg/dL Creatinine 0.4 L (0.6-1.5) mg/dL Calcium 8.5 L (8.7-10.3) mg/dL Total Protein 5.0 L (6.2-8.2) g/dL Albumin 3.1 L (3.8-4.9) g/dL Assessment and Plan Assessment: 33F with PMH of RYGB who presents with abdominal pain without evidence of SBO. Plan: -CLD as tolerated -IVF hydration -PRN pain and nausea control -Activity as tolerated -No acute surgical intervention. Mp Holt M.D. General Surgery
[2024-07-29 10:30] LABS: Anisocytosis Slight; Basophils % (A) 0 %; Eosinophils # (A) 0.1 k/uL (0-0.7); Eosinophils % (A) 2 %; HCT 35.5 % (34.0-46.0); Hypochromasia Marked; Lymphocytes # (A) 1.8 k/uL (1.0-4.8); Lymphocytes % (A) 21 %; MCH 28.5 pg (25.0-35.0); MCV 92.2 fL (80.0-100.0); Monocytes # (A) 0.4 k/uL (0-1.0); Monocytes % (A) 4 %; Neutrophils # (A) 6.2 k/uL (1.3-7.7); Neutrophils % (A) 71 %; Platelet Count 238 k/uL (150-450); Poikilocytosis Slight; RBC 3.85 m/uL (3.80-5.40); RDW 19.9 % (11.5-15.5); WBC 8.7 k/uL (3.8-10.6)
--- NOTE | 2024-07-29 10:30 | PN ---
PROGRESS NOTE SUBJECTIVE: A 33-year-old white female with progressive nausea and vomiting. She had low potassium, which is being replaced. White count is 9.89, hemoglobin is 10.2, BUN is 5, creatinine 0.4, sodium 144, potassium 3.8. OBJECTIVE: GI: Soft. HEMATOLOGY: Negative Homans. PSYCH: Fair mood and affect. Continue home medications. DuoNeb breathing treatments for asthma, COPD. Takes Seroquel for depression and rehydration. Wants saline. Zofran for nausea and vomiting. Clear liquid diet, small foods. Wait for surgical consult. Unable to do swallow eval. Possible discharge home if continues to improve, or else go back down to [facility], where she had her gastric surgery revamped. MMODL / IJN: [id number] /
[2024-07-29 10:40] LABS: Albumin 2.8 g/dL (3.5-5.0); Albumin/Globulin Ratio 1.2; Chloride 104 mmol/L (98-107); Globulin 2.4 g/dL; Glucose 71 mg/dL (74-99); Potassium 3.1 mmol/L (3.5-5.1); Sodium 139 mmol/L (137-145); Total Protein 5.2 g/dL (6.3-8.2)
[2024-07-29 10:42] LABS: ALT 24 U/L (4-34); AST 21 U/L (14-36); African American GFR (CKD) >90 (>60 ml/min/1.73 sqM); Alkaline Phosphatase 66 U/L (38-126); Anion Gap 10 mmol/L; Blood Urea Nitrogen <2 mg/dL (7-17); Calcium 8.4 mg/dL (8.4-10.2); Carbon Dioxide 25 mmol/L (22-30); Non-African American GFR(CKD) >90 (>60 ml/min/1.73 sqM); Total Bilirubin 0.4 mg/dL (0.2-1.3)
--- NOTE | 2024-07-29 12:41 | P.PN ---
Subjective Progress Note Date: 07/29/24 Patient still has complaints of nausea. She has had limited oral intake. On exam vital signs appear stable. Abdomen is soft. Nausea status post gastric bypass. Patient should follow-up with her surgeon at [facility] Objective - Vital Signs Vital signs: Vital Signs Temp 98.3 F 07/29/24 07:00 Pulse 104 H 07/29/24 10:30 Resp 16 07/29/24 10:30 BP 141/89 07/29/24 07:00 Pulse Ox 95 07/29/24 07:00 FiO2 Intake & Output 07/28/24 07/29/24 07/29/24 18:59 06:59 18:59 Intake Total 238 900 Balance 238 900 Intake: Intake, IV Titration 900 Amount Sodium Chloride 0.9% 1, 900 000 ml @ 75 mls/hr IV . [id number] [facility] Rx#:[id number] Oral 238 Other: Voiding Method Toilet # Voids 2 2 - Labs CBC & Chem 7: 07/29/24 08:45 07/29/24 08:45 Labs: Abnormal Lab Results - Last 24 Hours (Table) 07/29/24 07/29/24 Range/Units 08:45 08:45 Hgb 11.0 L (11.4-16.0) gm/dL RDW 19.9 H (11.5-15.5) % Potassium 3.1 L (3.5-5.1) mmol/L BUN <2 L (7-17) mg/dL Creatinine 0.39 L (0.52-1.04) mg/dL Glucose 71 L (74-99) mg/dL Total Protein 5.2 L (6.3-8.2) g/dL Albumin 2.8 L (3.5-5.0) g/dL
[2024-07-29] MEDS: POTASSIUM CHLORIDE ER 20 MEQ TAB.ER PO STA (17:07)
--- NOTE | 2024-07-30 03:51 | PN ---
PROGRESS NOTE -aohb-lde female. No worsening abdominal pain. Vital signs are stable. No chest pain or shortness of breath. No nausea or vomiting. She is tolerating clear liquid diet. We are going to advance her to soft diet because she does wait for surgical recommendations. She was unable due to a small-bowel follow- through barium swallow due to emesis. Activity as tolerated. No surgical intervention when she is stable on oral intake. white count is 8.7, hemoglobin is 11. Sodium 139, potassium 3.1, albumin is 2.8. Prognosis is guarded. Ambulate as tolerated. MMODL / IJN: [id number] /
--- NOTE | 2024-07-30 13:22 | P.PN ---
Subjective Progress Note Date: 07/30/24 SURGICAL PROGRESS NOTE CHIEF COMPLAINT: Nausea vomiting HISTORY OF PRESENT ILLNESS: Patient still complains of nausea. But does report the nausea is less. She denies any vomiting. She is going slow with eating. She is having bowel movements. Afebrile. PHYSICAL EXAM: VITAL SIGNS: Reviewed. GENERAL: Well-developed in no acute distress. ABDOMEN: Soft. Nondistended. NEUROLOGIC: Alert and oriented. Cranial nerves II through XII grossly intact. ASSESSMENT: 1. Acute on Chronic abdominal pain with chronic nausea 2. Recent gastric bypass surgery June 11, 2024 PLAN: -Continue full liquid diet -Patient should follow-up with her surgeon at [facility] Physician Pipe Coverer Helper note has been reviewed by physician. Signing provider agrees with the documented findings, assessment, and plan of care. Objective - Vital Signs Vital signs: Vital Signs Temp 98.4 F 07/30/24 07:00 Pulse 98 07/30/24 07:00 Resp 16 07/30/24 07:00 BP 148/90 07/30/24 07:00 Pulse Ox 99 07/30/24 07:00 FiO2 Intake & Output 07/29/24 07/30/24 07/30/24 18:59 06:59 18:59 Other: Voiding Method Toilet Toilet # Voids 1 2 - Labs CBC & Chem 7: 07/29/24 08:45 07/29/24 08:45
--- NOTE | 2024-07-31 14:20 | P.PN ---
Subjective Progress Note Date: 07/31/24 SURGICAL PROGRESS NOTE CHIEF COMPLAINT: Nausea vomiting HISTORY OF PRESENT ILLNESS: Patient does report nausea. But reports that she is feeling better. She would like to be discharged home. Afebrile PHYSICAL EXAM: VITAL SIGNS: Reviewed. GENERAL: Well-developed in no acute distress. ABDOMEN: Soft. Nondistended. NEUROLOGIC: Alert and oriented. Cranial nerves II through XII grossly intact. ASSESSMENT: 1. Acute on Chronic abdominal pain with chronic nausea 2. Recent gastric bypass surgery June 11, 2024 PLAN: -Medicine service has advance diet to chopped -Patient can be discharge from surgical standpoint when medically cleared -Patient should follow-up with her surgeon at [facility] Physician Sales Planning Coordinator note has been reviewed by physician. Signing provider agrees with the documented findings, assessment, and plan of care. Objective - Vital Signs Vital signs: Vital Signs Temp 98.5 F 07/31/24 14:14 Pulse 112 H 07/31/24 14:14 Resp 19 07/31/24 14:14 BP 138/88 07/31/24 14:14 Pulse Ox 94 L 07/31/24 14:14 FiO2 Intake & Output 07/30/24 07/31/24 07/31/24 18:59 06:59 18:59 Intake Total 118 0 Balance 118 0 Intake: Oral 118 0 Other: Voiding Method Toilet # Voids 3 3 - Labs CBC & Chem 7: 07/29/24 08:45 07/29/24 08:45 Labs: Abnormal Lab Results - Last 24 Hours (Table) 07/27/24 Range/Units 06:34 Vitamin B1 17 L (38-122) ug/L
[2024-08-01 03:49] VITALS: RESP 16
[2024-08-01 08:04] VITALS: BP 136/89; PULSE 82; TEMP 97.2
--- NOTE | 2024-08-01 12:19 | P.PN ---
Subjective Progress Note Date: 08/01/24 SURGICAL PROGRESS NOTE CHIEF COMPLAINT: Nausea vomiting HISTORY OF PRESENT ILLNESS: Patient reports she is feeling better today. She was able to tolerate the chopped diet. She wants to be discharged home. Vital stable. PHYSICAL EXAM: VITAL SIGNS: Reviewed. GENERAL: Well-developed in no acute distress. ABDOMEN: Soft. Nondistended. NEUROLOGIC: Alert and oriented. Cranial nerves II through XII grossly intact. ASSESSMENT: 1. Acute on Chronic abdominal pain with chronic nausea 2. Recent gastric bypass surgery June 11, 2024 PLAN: -Patient is tolerating chopped diet -Patient can be discharge from surgical standpoint -Patient should follow-up with her bariatric surgeon at [facility] outpatient Physician Bioinformatics Associate note has been reviewed by physician. Signing provider agrees with the documented findings, assessment, and plan of care. Objective - Vital Signs Vital signs: Vital Signs Temp 97.2 F L 08/01/24 07:00 Pulse 82 08/01/24 07:00 Resp 16 08/01/24 07:00 BP 136/89 08/01/24 07:00 Pulse Ox 97 08/01/24 07:00 FiO2 Intake & Output 07/31/24 08/01/24 08/01/24 18:59 06:59 18:59 Intake Total 118 Balance 118 Intake: Oral 118 Other: Voiding Method Toilet # Voids 3 1 - Labs CBC & Chem 7: 07/29/24 08:45 07/29/24 08:45
--- NOTE | 2024-08-02 01:25 | DS ---
DISCHARGE SUMMARY HISTORY OF PRESENT ILLNESS: A 33-year-old white female, who was admitted with dehydration and intractable nausea, and vomiting, status post gastroparesis surgery. She failed a barium swallow. She is started on clear liquids, went to pureed diet, and then back to regular diet over the next few days. She will follow with bariatric surgeon in [place] to reverse her prior Damon surgery. Home medicines will continue. Condition stable. Prognosis guarded. HOME MEDICATIONS: 1. Spiriva inhaler 2 puffs b.i.d. daily. 2. Prilosec 40 daily. 3. Seroquel 100 at bedtime. 4. Trazodone 100 at bedtime. 5. Ativan 1 mg p.r.n. q.12. 6. Dixon 5/325 q.12h p.r.n. 7. Zofran 4 mg b.i.d. 8. Symbicort 2 puffs b.i.d. CONDITION: Stable. Follow up as an outpatient. Diet as tolerated. Please see further orders. MMODL / IJN: [id number] /
--- NOTE | 2024-08-02 07:54 | PN ---
PROGRESS NOTE DATE OF SERVICE: 07/31/2024 HISTORY OF PRESENT ILLNESS: A 33-year-old white female, who was found to be at a diet increased to soft foods or regular foods from pureed, which she will do today. If she is tolerating, she will go home tomorrow. She has severe gastroparesis secondary to prior Damon surgery. She has a history of PE, status post gastric surgery also with a repair, and she has had progressive nausea and vomiting for about 2 months. She appears to be more rehydrated if she eats low and takes small amounts of pureed food. PHYSICAL EXAMINATION: CARDIOVASCULAR: S1, S2. LUNGS: Clear. GI: Soft. ENDOCRINE: BMI is over 40. PSYCH: Fair mood and affect. ASSESSMENT: 1. Gastroparesis. 2. Nausea. 3. Vomiting. 4. Dehydration, improved. 5. Malnutrition, improving. 6. History of pulmonary embolism and deep vein thrombosis. 7. She has asthma/chronic obstructive pulmonary disease. Continue current treatment and discharge home if she tolerates her diet. We will send her home tomorrow. MMODL / IJN: [id number] /
== END 2024-08-01 13:35 | disposition home or self-care (01) ==
LOC: EC 07:47 → 6NMEDSUR 10:47
PROVIDERS: ADMIT Family Medicine; ATTEND Family Medicine
DX: K31.84 Gastroparesis (principal); K95.89 Other complications of other bariatric procedure; Y83.9 Surgical procedure, unspecified as the cause of abnormal reaction of the patient, or of later complication, without mention of misadventure at the time of the procedure; E86.0 Dehydration; E46 Unspecified protein-calorie malnutrition; Z68.32 Body mass index [BMI] 32.0-32.9, adult; G89.29 Other chronic pain; J44.89 Other specified chronic obstructive pulmonary disease; F31.9 Bipolar disorder, unspecified; Z98.84 Bariatric surgery status; Z79.51 Long term (current) use of inhaled steroids; Z79.899 Other long term (current) drug therapy; Z88.5 Allergy status to narcotic agent; Z91.040 Latex allergy status; Z87.891 Personal history of nicotine dependence; Z86.718 Personal history of other venous thrombosis and embolism; Z86.711 Personal history of pulmonary embolism
CPT/HCPCS: 96376 ×8; 96361 ×3; 96374; 96375; 99285; 36415; 94640; 93005; 84425; 80053 ×4; 82150; 83605; 83690; 83735; 84132; 85025 ×4; 85610; 85730; 81001; 71046; 74018; 74177; G0378 ×7; J2270; J2405 ×6; J1171 ×7; Q9967; J2470 ×7

== ENCOUNTER 2024-08-11 18:42 | Inpatient (IN) | payer OTHER ==
--- NOTE | 2024-08-11 20:28 | ED ---
General Adult HPI - General Source: patient, RN notes reviewed, old records reviewed Mode of arrival: wheelchair Limitations: no limitations <Lalit Arredondo - Last Filed: 08/11/24 20:28> <Luiza Pierson - Last Filed: 08/12/24 08:26> - General Chief complaint: Abdominal Pain Stated complaint: Abdominal Pain Time Seen by Provider: 08/11/24 19:10 - History of Present Illness Initial comments: 33-year-old female who presents emergency department for intractable abdominal pain, nausea, vomiting. Frequently visits our facility for similar complaints. Has a history of gastric bypass in May 2024. Follows with Dr. Liu. surgery performed by another provider. Endorses nausea believes the bloody emesis with it. States symptoms has been worse over the last 5 days. Recently was admitted for similar complaints and discharged home on August 01. States that over the last 5 days symptoms have returned. Denies chest pain or shortness of breath. Denies fevers or chills. Has no urinary complaints. Denies any vaginal discharge or bleeding. Presents for further evaluation at this time. (Lalit Arredodno) - Related Data Home Medications Medication Instructions Recorded Confirmed Asenapine Maleate [Saphris] 10 mg SUBLINGUAL HS 07/12/24 07/26/24 Budesonide/Formoterol Fumarate 2 puff INHALATION RT-BID 07/12/24 07/26/24 [Symbicort 160-4.5 Mcg Inhaler] HYDROcodone/APAP 5-325MG [Gary 1 tab PO BID PRN 07/12/24 07/26/24 5-325] LORazepam [Ativan] 1 mg PO BID PRN 07/12/24 07/26/24 QUEtiapine [SEROquel] 100 mg PO HS 07/12/24 07/26/24 Tiotropium 2.5 Mcg/Puff [Spiriva 2 puff INHALATION RT-DAILY 07/12/24 07/26/24 Respimat 2.5 Mcg] traZODone HCL [Desyrel] 100 mg PO HS 07/12/24 07/26/24 Omeprazole [PriLOSEC] 40 mg PO DAILY 07/26/24 07/26/24 Ondansetron [Zofran] 4 mg PO BID PRN 07/26/24 07/26/24 Allergies Allergy/AdvReac Type Severity Reaction Status Date / Time latex Allergy Rash/Hives Verified 08/11/24 18:50 morphine AdvReac Itching Verified 08/11/24 18:50 Review of Systems ROS Other: All systems not noted in ROS Statement are negative. <Lalit Arredondo - Last Filed: 08/11/24 20:28> ROS Other: All systems not noted in ROS Statement are negative. <Luiza Pierson - Last Filed: 08/12/24 08:26> ROS Statement: Those systems with pertinent positive or pertinent negative responses have been documented in the HPI. Review of Systems: CONST: Denies fever EYES: Denies blurry vision ENT: Denies nasal congestion C/V: Denies Chest pain RESP: Denies shortness of breath GI: Endorses abdominal pain : Denies dysuria SKIN: Denies rash. MSK: Denies joint pain. NEURO: Denies headache (Lalit Arredondo) Past Medical History Past Medical History: GERD/Reflux, Pulmonary Embolus (PE), Sleep Apnea/CPAP/BIPAP Additional Past Medical History / Comment(s): iron defiency anemia, currently getting iron infusions, no cpap used, pulmonary embolism 02/13/24 History of Any Multi-Drug Resistant Organisms: None Reported Past Surgical History: Bariatric Surgery, Section, Cholecystectomy, Tu bal Ligation, Uterine Ablation Additional Past Surgical History / Comment(s): 2008 AND 2015 (c/s) and 2010 (cholecyst). 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 gastric bypass 06/11/24 Past Anesthesia/Blood Transfusion Reactions: No Reported Reaction Past Psychological History: Anxiety, Bipolar, Depression Smoking Status: Former smoker Past Alcohol Use History: None Reported Past Drug Use History: None Reported - Past Family History Mother Family Medical History: Asthma, COPD, Diabetes Mellitus, Hypertension Additional Family Medical History / Comment(s): depression, anxiety, sleep apnea, Father Family Medical History: Hypertension Additional Family Medical History / Comment(s): arthritis <Lalit Arredondo - Last Filed: 08/11/24 20:28> General Exam Limitations: no limitations <Lalit Arredondo - Last Filed: 08/11/24 20:28> - General Exam Comments Initial Comments: General: Appears in moderate distress secondary to abdominal pain HEAD: Normal with no signs of head trauma. EYES: EOMI ENT: Hearing grossly intact, normal oropharynx. RESPIRATORY: Clear breath sounds bilaterally. No wheezes, rales, or rhonchi. C/V: Regular rate and rhythm. S1 and S2 auscultated, no edema, peripheral pulses 2+ and intact throughout ABD: Soft, nondistended. Tender palpation in the epigastric region. No guarding. No rebound tenderness. No peritoneal signs. EXT: No obvious deformity SKIN: No rashes or lesions observed on exposed skin. NEURO: Alert and oriented x 4. (Lalit Arredondo) Course Vital Signs 08/11/24 08/11/24 08/12/24 18:47 20:45 02:28 Temperature 98.4 F 98.5 F Pulse Rate 124 H 103 H 104 H Pulse Rate [ Pulse Oximetery ] Respiratory 22 17 17 Rate Blood Pressure 127/76 137/92 143/92 Blood Pressure [Left Arm] O2 Sat by Pulse 99 100 100 Oximetry 08/12/24 08/12/24 06:00 07:00 Temperature 99.0 F Pulse Rate 97 Pulse Rate [ 103 H Pulse Oximetery ] Respiratory 16 17 Rate Blood Pressure 135/88 Blood Pressure 149/98 [Left Arm] O2 Sat by Pulse 98 100 Oximetry Medical Decision Making - EKG Data -: EKG Interpreted by Me <Lalit Arredondo - Last Filed: 08/11/24 20:28> - Lab Data Result diagrams: 08/11/24 19:22 08/11/24 19:22 <Luiza Pierson - Last Filed: 08/12/24 08:26> - Medical Decision Making Was pt. sent in by a medical professional or institution (, PA, SENIOR RELATIONSHIP MANAGER, urgent care, hospital, or skilled nursing...) When possible be specific @ -No Did you speak to anyone other than the patient for history (EMS, parent, family, police, friend...)? What history was obtained from this source @ -No Did you review nursing and triage notes (agree or disagree)? Why? @ -I reviewed and agree with nursing and triage notes Were old charts reviewed (outside hosp., previous admission, EMS record, old EKG, old radiological studies, urgent care reports/EKG's, skilled nursing records)? Report findings @ -Reviewed including from visit, admitted patient for identical complaints on July 26, 2024. Differential Diagnosis (chest pain, altered mental status, abdominal pain women, abdominal pain men, vaginal bleeding, weakness, fever, dyspnea, syncope, headache, dizziness, GI bleed, back pain, seizure, CVA, palpatations, mental health, musculoskeletal)? @ -Differential Abdominal Pain Women: Appendicitis, Cholecystitis, diverticulosis, ischemic bowel, pancreatitis, hepatitis, UTI, gastroenteritis, AAA, incarcerated hernia, bowel obstruction, constipation, inflammatory bowel, hepatitis, peptic ulcer disease, splenic infarction, perforated viscus, vulvitis, ovarian torsion, PID, kidney stone, placenta abruption, this is not meant to be an all-inclusive list EKG interpreted by me (3pts min.). @ -As above X-rays interpreted by me (1pt min.). @ -None done CT interpreted by me (1pt min.). @ -None done U/S interpreted by me (1pt. min.). @ -None done What testing was considered but not performed or refused? (CT, X-rays, U/S, labs)? Why? @ -None What meds were considered but not given or refused? Why? @ -None Did you discuss the management of the patient with other professionals (professionals i.e. , PA, SENIOR RELATIONSHIP MANAGER, lab, RT, psych nurse, psychologist social, income auditor, teacher, aboriginal liaison officer, caseworker intake)? Give summary @ -No Was smoking cessation discussed for >3mins.? @ -No Was critical care preformed (if so, how long)? @ -No Were there social determinants of health that impacted care today? How? (Marv elessness, low income, unemployed, alcoholism, drug addiction, transportation, low edu. Level, literacy, decrease access to med. care, [facility], rehab)? @ -No Was there de-escalation of care discussed even if they declined (Discuss DNR or withdrawal of care, Hospice)? DNR status @ -No What co-morbidities impacted this encounter? (DM, HTN, Smoking, COPD, CAD, Cancer, CVA, ARF, Chemo, Hep., AIDS, mental health diagnosis, sleep apnea, morbid obesity)? @ -None Was patient admitted / discharged? Hospital course, mention meds given and route, prescriptions, significant lab abnormalities, going to OR and other pertinent info. @ -Patient presents for return of intractable abdominal pain. History of gastric sleeve 2 months ago. With nausea and vomiting. Has been ongoing for the last 4 to 5 days. Will obtain abdominal laboratory studies. Patient be symptomatically treated with IV fluids, Protonix, Zofran, Dilaudid. Patient was in agreement this plan. EKG shows no signs of acute ischemia.At this time, patient is pending reevaluation and laboratory results. [facility] [place] [facility] Dr. Pierson. Undiagnosed new problem with uncertain prognosis? @ -No Drug Therapy requiring intensive monitoring for toxicity (Heparin, Nitro, Insulin, Cardizem)? @ -No Were any procedures done? @ -No (Lalit Arredondo) Was patient admitted / discharged? Hospital course, mention meds given and route, prescriptions, significant lab abnormalities, going to OR and other pertinent info. @ -Patient signed out to myself from outgoing physician. She is a 33-year-old female past medical history of chronic abdominal pain, gastric sleeve 2 months ago. Recently admitted for similar. Patient has since received Dilaudid and Zofran, basic labs currently pending. On reassessment patient is sleeping comfortably though states that pain still persists. Additional Dilaudid and Zofran ordered. Patient states he does not feel comfortable going home due to the amount of pain and nausea she is having. Will admit patient for intractable nausea and pain. Patient's abdomen is soft and nondistended with peritoneal signs on my assessment I do not feel additional imaging is required. Discussed with [facility], kindly accepts patient for admission. Patient admitted in stable condition. Undiagnosed new problem with uncertain prognosis? @ -No Drug Therapy requiring intensive monitoring for toxicity (Heparin, Nitro, Insulin, Cardizem)? @ -No Were any procedures done? @ -No Diagnosis/symptom? @Actable abdominal pain Acute, or Chronic, or Acute on Chronic? @Acute on chronic Uncomplicated (without systemic symptoms) or Complicated (systemic symptoms)? @ -Default Side effects of treatment? @ -No Exacerbation, Progression, or Severe Exacerbation? @ -No Poses a threat to life or bodily function? How? (Chest pain, [place], [place], pneumonia, PE, COPD, DKA, ARF, appy, cholecystitis, CVA, Diverticulitis, Homicidal, Suicidal, threat to staff... and all critical care pts) @ -No (Luiza Pierson) - Lab Data Lab Results 1108/11/24 08/11/24 Range/Units 02:32 19:22 19:22 WBC 11.4 H (3.8-10.6) k/uL RBC 4.74 (3.80-5.40) m/uL Hgb 13.6 (11.4-16.0) gm/dL Hct 42.5 (34.0-46.0) % MCV 89.7 (80.0-100.0) fL MCH 28.7 (25.0-35.0) pg MCHC 32.0 (31.0-37.0) g/dL RDW 19.1 H (11.5-15.5) % Plt Count 327 (150-450) k/uL MPV 9.5 Neutrophils % 82 % Lymphocytes % 13 % Monocytes % 3 % Eosinophils % 1 % Basophils % 0 % Neutrophils # 9.4 H (1.3-7.7) k/uL Lymphocytes # 1.4 (1.0-4.8) k/uL Monocytes # 0.4 (0-1.0) k/uL Eosinophils # 0.1 (0-0.7) k/uL Basophils # 0.0 (0-0.2) k/uL Hypochromasia Moderate Poikilocytosis Slight Anisocytosis Slight Sodium 137 (137-145) mmol/L Potassium 4.1 (3.5-5.1) mmol/L Chloride 104 (98-107) mmol/L Carbon Dioxide 17 L (22-30) mmol/L Anion Gap 16 mmol/L BUN 3 L (7-17) mg/dL Creatinine 0.49 L (0.52-1.04) mg/dL Est GFR (CKD-EPI)AfAm >90 (>60 ml/min/1.73 sqM) Est GFR (CKD-EPI)NonAf >90 (>60 ml/min/1.73 sqM) Glucose 74 (74-99) mg/dL Plasma Lactic Acid Case (0.7-2.0) mmol/L Calcium 9.6 (8.4-10.2) mg/dL Total Bilirubin 0.8 (0.2-1.3) mg/dL AST 32 (14-36) U/L ALT 15 (4-34) U/L Alkaline Phosphatase 63 (38-126) U/L Total Protein 7.2 (6.3-8.2) g/dL Albumin 4.2 (3.5-5.0) g/dL Amylase 59 (30-110) U/L Lipase 87 (23-300) U/L HCG, Qual Not Detected Urine Color Light Yellow Urine Appearance Clear (Clear) Urine pH 6.5 (5.0-8.0) Ur Specific [place] 1.018 (1.001-1.035) Urine Protein Trace H (Negative) Urine Glucose (UA) Negative (Negative) Urine Ketones 4+ H (Negative) Urine Blood Negative (Negative) Urine Nitrite Negative (Negative) Urine Bilirubin Negative (Negative) Urine Urobilinogen 2.0 (<2.0) mg/dL Ur Leukocyte Esterase Negative (Negative) Influenza Type A (PCR) (Not Detectd) Influenza Type B (PCR) (Not Detectd) RSV (PCR) (Not Detectd) SARS-CoV-2 (PCR) (Not Detectd) 08/11/24 08/11/24 Range/Units 19:22 19:22 WBC (3.8-10.6) k/uL RBC (3.80-5.40) m/uL Hgb (11.4-16.0) gm/dL Hct (34.0-46.0) % MCV (80.0-100.0) fL MCH (25.0-35.0) pg MCHC (31.0-37.0) g/dL RDW (11.5-15.5) % Plt Count (150-450) k/uL MPV Neutrophils % % Lymphocytes % % Monocytes % % Eosinophils % % Basophils % % Neutrophils # (1.3-7.7) k/uL Lymphocytes # (1.0-4.8) k/uL Monocytes # (0-1.0) k/uL Eosinophils # (0-0.7) k/uL Basophils # (0-0.2) k/uL Hypochromasia Poikilocytosis Anisocytosis Sodium (137-145) mmol/L Potassium (3.5-5.1) mmol/L Chloride (98-107) mmol/L Carbon Dioxide (22-30) mmol/L Anion Gap mmol/L BUN (7-17) mg/dL Creatinine (0.52-1.04) mg/dL Est GFR (CKD-EPI)AfAm (>60 ml/min/1.73 sqM) Est GFR (CKD-EPI)NonAf (>60 ml/min/1.73 sqM) Glucose (74-99) mg/dL Plasma Lactic Acid Case 0.9 (0.7-2.0) mmol/L Calcium (8.4-10.2) mg/dL Total Bilirubin (0.2-1.3) mg/dL AST (14-36) U/L ALT (4-34) U/L Alkaline Phosphatase (38-126) U/L Total Protein (6.3-8.2) g/dL Albumin (3.5-5.0) g/dL Amylase (30-110) U/L Lipase (23-300) U/L HCG, Qual Urine Color Urine Appearance (Clear) Urine pH (5.0-8.0) Ur Specific [place] (1.001-1.035) Urine Protein (Negative) Urine Glucose (UA) (Negative) Urine Ketones (Negative) Urine Blood (Negative) Urine Nitrite (Negative) Urine Bilirubin (Negative) Urine Urobilinogen (<2.0) mg/dL Ur Leukocyte Esterase (Negative) Influenza Type A (PCR) Not Detected (Not Detectd) Influenza Type B (PCR) Not Detected (Not Detectd) RSV (PCR) Not Detected (Not Detectd) SARS-CoV-2 (PCR) Not Detected (Not Detectd) - EKG Data EKG Comments: 12-lead Electrocardiogram Interpretation Note EKG was reviewed and interpreted by myself. 12-lead ECG performed at 1930 is interpreted by me as revealing sinus tachycardia at a rate of 107 beats per minute. Milfay is leftward deviated. NH interval is 194 ms, QRS duration is 97 ms, QTc is 397 ms.. There were no ST or T wave abnormalities to suggest myocardial ischemia or injury. R wave progression across the precordium was satisfactory. By my interpretation this EKG is non-diagnostic for acute ischemia. (Lalit Arredondo) Disposition <Lalit Arredondo - Last Filed: 08/11/24 20:28> <Luiza Pierson - Last Filed: 08/12/24 08:26> Clinical Impression: Intractable abdominal pain Disposition: ADMITTED IP TO THIS HOSP Condition: Good
[2024-08-11 21:15] LABS: Anisocytosis Slight; Basophils % (A) 0 %; Eosinophils # (A) 0.1 k/uL (0-0.7); Eosinophils % (A) 1 %; HCT 42.5 % (34.0-46.0); HGB 13.6 gm/dL (11.4-16.0); Hypochromasia Moderate; Lymphocytes # (A) 1.4 k/uL (1.0-4.8); Lymphocytes % (A) 13 %; MCH 28.7 pg (25.0-35.0); MCV 89.7 fL (80.0-100.0); Mean Platelet Volume 9.5; Monocytes # (A) 0.4 k/uL (0-1.0); Monocytes % (A) 3 %; Neutrophils # (A) 9.4 k/uL (1.3-7.7); Neutrophils % (A) 82 %; Platelet Count 327 k/uL (150-450); Poikilocytosis Slight; RBC 4.74 m/uL (3.80-5.40); RDW 19.1 % (11.5-15.5); WBC 11.4 k/uL (3.8-10.6)
[2024-08-11] MEDS: SODIUM CHLORIDE 0.9% 1,000 ML IV STA (21:21)
[2024-08-11] MEDS: ONDANSETRON 4 MG/2 ML VIAL IVP STA (21:22)
[2024-08-11] MEDS: PANTOPRAZOLE 40 MG/10 ML VIAL IVP STA (21:24)
[2024-08-11] MEDS: HYDROmorphone 0.5 MG/0.5 ML SYRINGE IVP STA (21:25)
[2024-08-11 21:28] LABS: ALT 15 U/L (4-34); African American GFR (CKD) >90 (>60 ml/min/1.73 sqM); Amylase 59 U/L (30-110); Anion Gap 16 mmol/L; Blood Urea Nitrogen 3 mg/dL (7-17); Calcium 9.6 mg/dL (8.4-10.2); Carbon Dioxide 17 mmol/L (22-30); Chloride 104 mmol/L (98-107); Glucose 74 mg/dL (74-99); Lipase 87 U/L (23-300); Non-African American GFR(CKD) >90 (>60 ml/min/1.73 sqM); Sodium 137 mmol/L (137-145); Total Bilirubin 0.8 mg/dL (0.2-1.3)
[2024-08-11 21:29] LABS: AST 32 U/L (14-36); Albumin 4.2 g/dL (3.5-5.0); Alkaline Phosphatase 63 U/L (38-126); Potassium 4.1 mmol/L (3.5-5.1); Total Protein 7.2 g/dL (6.3-8.2)
[2024-08-11 22:44] LABS: HCG,Qualitative Serum Not Detected
[2024-08-12] MEDS: SODIUM CHLORIDE 0.9% 1,000 ML IV ONE (01:22)
[2024-08-12] MEDS: ONDANSETRON 4 MG/2 ML VIAL IVP STA (01:23)
[2024-08-12] MEDS: HYDROmorphone 1 MG/ML 1 ML SYRINGE IVP STA (01:23)
[2024-08-12] MEDS ORDERED: HYDROmorphone 0.5 MG/0.5 ML SYRINGE IVP PRN (01:49)
[2024-08-12] MEDS ORDERED: ACETAMINOPHEN TAB 325 MG TAB PO PRN (01:49)
[2024-08-12] MEDS ORDERED: CALCIUM CARBONATE 500 MG CHEWABLE PO PRN (01:49)
[2024-08-12] MEDS ORDERED: NALOXONE 0.4 MG/ML 1 ML VIAL IV PRN (01:49)
[2024-08-12] MEDS ORDERED: MAG HYDROX/AL HYDROX/SIMETH 30 ML CUP PO PRN (01:49)
[2024-08-12] MEDS: QUEtiapine 100 MG TAB PO SCH (02:21)
[2024-08-12] MEDS: DEXTROSE 5%-0.45% NACL 1,000 ML IV SCH (02:22)
[2024-08-12 02:57] LABS: Appearance,Urine Clear (Clear); Bilirubin,Urine Negative (Negative); Blood,Urine Negative (Negative); Color,Urine Light Yellow; Glucose,Urine (UA) Negative (Negative); Ketones,Urine 4+ (Negative); Leukocyte Esterase,Urine Negative (Negative); Nitrite,Urine Negative (Negative); PH, Urine 6.5 (5.0-8.0); Protein,Urine Trace (Negative); Specific Gravity,Urine 1.018 (1.001-1.035)
[2024-08-12] MEDS: HYDROmorphone 1 MG/ML 1 ML SYRINGE IVP PRN (08:15)
[2024-08-12] MEDS: PANTOPRAZOLE 40 MG TABLET PO SCH (08:16)
[2024-08-12] MEDS: ENOXAPARIN 40 MG/0.4 ML SYRINGE SQ SCH (08:16)
[2024-08-12] MEDS: IPRATROPIUM 0.5 MG/2.5 ML NEBU INHALATION SCH (09:41)
[2024-08-12] MEDS: SYMBICORT 160-4.5 MCG INHALER INHALATION SCH (09:41)
[2024-08-12] MEDS: ONDANSETRON 4 MG/2 ML VIAL IVP PRN (11:55)
[2024-08-12] MEDS: NICOTINE 21MG/24HR PATCH TRANSDERM SCH (18:16)
[2024-08-12] MEDS: traZODone HCL 100 MG TAB PO SCH (21:56)
--- NOTE | 2024-08-13 08:34 | PN ---
PROGRESS NOTE OBJECTIVE: VITAL SIGNS: Temp 98.4, pulse 109, blood pressure 141/90, O2 saturation 97% on room air. CARDIOVASCULAR: S1, S2. LUNGS: Transmitted upper sounds. GI: Soft. HEMATOLOGY: Negative Homans. PSYCH: Fair mood and affect. Diet will be advanced. Prognosis guarded. Ambulate as tolerated. MMODL / IJN: [id number] /
--- NOTE | 2024-08-13 08:34 | HP ---
HISTORY AND PHYSICAL HISTORY OF PRESENT ILLNESS: A 33-year-old female admitted with intractable nausea and vomiting, status post gastric bypass and hernia repair 5 days. Five days later, she came back with some more abdominal pain, nausea, vomiting. MEDICATIONS: Reviewed. REVIEW OF SYSTEMS: A 14-point review of systems otherwise negative. Noncompliant with the CPAP. ALLERGIES: Latex, morphine. PAST SURGICAL HISTORY: Bariatric surgery, , cholecystectomy, tubal ligation, uterine ablation. FAMILY HISTORY: Mother, asthma, COPD, diabetes, hypertension. Father with osteoarthritis. PHYSICAL EXAMINATION: VITAL SIGNS: Temp 98.4, pulse 104 to 124. Blood pressure 120s to 140s over 60s to 70s, O2 sat 99% to 100%. CARDIOVASCULAR: S1, S2. LUNGS: Transmitted upper sounds. GI: Soft. HEMATOLOGY: Negative Homans. ABDOMEN: Distended. PSYCH: Fair mood and affect. NEUROLOGIC: Alert and oriented x3. LABORATORY DATA: White count is 11.4, hemoglobin 13.6. She has 4+ ketones and protein. EKG sinus rhythm, no ischemia. Advance diet as tolerated. Possible nutrition. TPN will have to be used again if can not keep foods and liquids down. Prognosis guarded. MMODL / IJN: [id number] /
[2024-08-13 08:37] LABS: Basophils # (A) 0.03 X 10*3/uL (0.00-0.10); Basophils % (A) 0.4 %; Eosinophils % (A) 1.4 %; HCT 34.9 % (37.2-46.3); HGB 11.2 g/dL (12.0-15.0); Lymphocytes # (A) 1.97 X 10*3/uL (0.90-5.00); Lymphocytes % (A) 27.6 %; MCH 27.7 pg (27.0-32.0); MCHC 32.1 g/dL (32.0-37.0); MCV 86.2 FL (80.0-97.0); Mean Platelet Volume 12.4 FL (9.5-12.2); Monocytes # (A) 0.67 X 10*3/uL (0.20-1.00); Monocytes % (A) 9.4 %; NRBC Per 100 WBC 0 X 10*3/uL (0.00-0.01); Neutrophils # (A) 4.33 X 10*3/uL (1.80-7.70); Neutrophils % (A) 60.8 %; Platelet Count 278 X 10*3/uL (140-440); RBC 4.05 X 10*6/uL (4.10-5.20); WBC 7.13 X 10*3/uL (4.50-10.00)
[2024-08-13 08:58] LABS: BUN/Creat Ratio <7.00 Ratio (12.00-20.00); Blood Urea Nitrogen <3.5 mg/dL (9.0-27.0); Calcium 8.7 mg/dL (8.7-10.3); Carbon Dioxide 25.5 mmol/L (21.6-31.8); Chloride 105 mmol/L (96-109); Glucose 100 mg/dL (70-110); Potassium 2.9 mmol/L (3.5-5.5); Sodium 141 mmol/L (135-145)
--- NOTE | 2024-08-13 10:53 | P.CRDCN ---
History of Present Illness History of present illness: HISTORY OF PRESENTING ILLNESS This is a pleasant 33-year-old with past medical history significant for a number of GI issues mainly since gastric bypass, pulmonary embolism, GERD, sleep apnea, obesity, anxiety. She has not seen a venetian blind assembler. Cardiology was consult that secondary to tachycardia. She presents secondary to nausea, decreased appetite, vomiting and abdominal pain over last 1-2 weeks. She has had a number of these issues in the past. She had gastric bypass in May 2024 and states she has had a number of issues since then. She additionally a pulmonary embolism however did well on anticoagulation. D-dimer was noted to be normal. She has remained tachycardic with heart rates in the low 100s with sinus tachycardia. EKG shows normal sinus rhythm, sinus tachycardia with no significant ST or T-wave abnormalities. She denies any actual chest pain or pressure. Troponin ordered to be normal 1. She has been getting Dilaudid with some improvement in her pain. Noted to additionally be hypokalemic. REVIEW OF SYSTEMS At the time of my exam: CONSTITUTIONAL: Denies fever or chills. CARDIOVASCULAR: Denies chest pain, shortness of breath, orthopnea, PND or p alpitations. RESPIRATORY: Denies cough. GASTROINTESTINAL: +abdominal pain, no diarrhea, + nausea + vomiting. MUSCULOSKELETAL: Denies myalgias. NEUROLOGIC: Denies numbness, tingling or weakness. ENDOCRINE: Denies fatigue, weight change, polydipsia or polyurina. GENITOURINARY: Denies burning, hematuria or urgency with micturation. HEMATOLOGIC: Denies history of anemia or bleeding. PHYSICAL EXAMINATION Vital signs reviewed. CONSTITUTIONAL: No apparent distress. HEENT: Head is normocephalic. Pupils are equal, round. Sclerae anicteric. Mucous membranes of the mouth are moist. No JVD. No carotid bruit. CHEST EXAMINATION: Lungs are clear to auscultation. No chest wall tenderness is noted on palpation or with deep breathing. HEART EXAMINATION: Regular rate and rhythm. S1, S2 heard. No murmurs, gallops or rub. ABDOMEN: Soft, nontender. Positive bowel sounds. EXTREMITIES: 2+ peripheral pulses, no lower extremity edema and no calf tenderness. NEUROLOGIC EXAMINATION: Patient is awake, alert and oriented x3. ASSESSMENT Abdominal pain, appears more GI related Sinus tachycardia, appears reactive from pain, possible dehydration Hypokalemia History of PE, d-dimer normal Obesity Status post gastric bypass PLAN Patient's abdominal pain appears more GI related. Patient did have mildly abn ormal TSH in the past from February and we will check TSH for completeness. Otherwise continue with current supportive care and pain management. Check echocardiogram for completeness sake. If echo unrevealing no further treatment recommended from a cardiology standpoint. Past Medical History Past Medical History: GERD/Reflux, Pulmonary Embolus (PE), Sleep Ap brandon/CPAP/BIPAP Additional Past Medical History / Comment(s): iron defiency anemia, currently getting iron infusions, no cpap used, pulmonary embolism 02/13/24 History of Any Multi-Drug Resistant Organisms: None Reported Past Surgical History: Bariatric Surgery, Section, Cholecystectomy, Tubal Ligation, Uterine Ablation Additional Past Surgical History / Comment(s): 2008 AND 2015 (c/s) and 2010 (cholecyst). 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 gastric bypass 06/11/24 Past Anesthesia/Blood Transfusion Reactions: No Reported Reaction Past Psychological History: Anxiety, Bipolar, Depression Additional Psychological History / Comment(s): Pt on oral medications Smoking Status: Former smoker Past Alcohol Use History: None Reported Additional Past Alcohol Use History / Comment(s): Pt. states she quit smoking cigarettes , pt denies vaping at this time Past Drug Use History: None Reported - Past Family History Mother Family Medical History: Asthma, COPD, Diabetes Mellitus, Hypertension Additional Family Medical History / Comment(s): depression, anxiety, sleep apnea, Father Family Medical History: Hypertension Additional Family Medical History / Comment(s): arthritis Medications and Allergies Home Medications Medication Instructions Recorded Confirmed Type Asenapine Maleate [Saphris] 10 mg SUBLINGUAL HS 07/12/24 08/12/24 History Budesonide/Formoterol Fumarate 2 puff INHALATION RT-BID 07/12/24 08/12/24 History [Symbicort 160-4.5 Mcg Inhaler] HYDROcodone/APAP 5-325MG [[place] 1 tab PO BID PRN 07/12/24 08/12/24 History 5-325] LORazepam [Ativan] 1 mg PO BID PRN 07/12/24 08/12/24 History QUEtiapine [SEROquel] 100 mg PO HS 07/12/24 08/12/24 History Tiotropium 2.5 Mcg/Puff [Spiriva 2 puff INHALATION RT-DAILY 07/12/24 08/12/24 History Respimat 2.5 Mcg] traZODone HCL [Desyrel] 100 mg PO HS 07/12/24 08/12/24 History Omeprazole [PriLOSEC] 40 mg PO DAILY 07/26/24 08/12/24 History Ondansetron [Zofran] 4 mg PO BID PRN 07/26/24 08/12/24 History Allergies Allergy/AdvReac Type Severity Reaction Status Date / Time latex Allergy Rash/Hives Verified 08/12/24 10:34 morphine AdvReac Itching Verified 08/12/24 10:34 Physical Exam Vitals: Vital Signs Temp Pulse Resp BP Pulse Ox 08/13/24 08:00 17 08/13/24 07:00 98.5 F 108 H 17 139/80 97 08/13/24 02:00 98.6 F 105 H 18 134/87 99 08/12/24 19:56 98.4 F 109 H 16 141/90 97 08/12/24 15:00 98.5 F 104 H 17 140/89 100 Intake and Output 08/12/24 08/13/24 08/13/24 22:59 06:59 14:59 Intake Total 118 Balance 118 Intake: Oral 118 Other: # Voids 1 1 Weight 81.193 kg Results 08/13/24 04:39 08/13/24 04:39 Cardiac Enzymes 08/13/24 Range/Units 04:39 Troponin I <0.012 (0.000-0.034) ng/mL CBC 08/13/24 Range/Units 04:39 WBC 7.13 (4.50-10.00) X 10*3/uL RBC 4.05 L (4.10-5.20) X 10*6/uL Hgb 11.2 L (12.0-15.0) g/dL Hct 34.9 L (37.2-46.3) % Plt Count 278 (140-440) X 10*3/uL Comprehensive Metabolic Panel 08/13/24 Range/Units 04:39 Sodium 141 (135-145) mmol/L Potassium 2.9 L (3.5-5.5) mmol/L Chloride 105 (96-109) mmol/L Carbon Dioxide 25.5 (21.6-31.8) mmol/L BUN <3.5 L (9.0-27.0) mg/dL Creatinine 0.5 L (0.6-1.5) mg/dL Glucose 100 (70-110) mg/dL Calcium 8.7 (8.7-10.3) mg/dL Current Medications Generic Name Dose Route Start Last Admin Trade Name Freq PRN Reason Stop Dose Admin Acetaminophen 650 mg 08/12/24 01:49 Acetaminophen Tab 325 Mg Tab PO Q6HR PRN Mild Pain or Fever > 100.5 Al Hydroxide/Mg Hydroxide 15 ml 08/12/24 01:49 Mag Hydrox/Al Hydrox/Simeth 30 Ml Cup PO Q6HR PRN Indigestion Budesonide/Formoterol Fumarate 2 puff 08/12/24 08:00 08/13/24 09:22 Symbicort 160-4.5 Mcg Inhaler INHALATION Not Given RT-BID ELPIDIO Calcium Carbonate/Glycine 1,000 mg 08/12/24 01:49 Calcium Carbonate 500 Mg Chewable PO Q4HR PRN Dyspepsia Enoxaparin Sodium 40 mg 08/12/24 09:00 08/13/24 08:20 Enoxaparin 40 Mg/0.4 Ml Syringe SQ 40 mg DAILY ELPIDIO Administration Hydromorphone HCl 0.5 mg 08/12/24 01:49 Hydromorphone 0.5 Mg/0.5 Ml Syringe IVP Q3HR PRN Moderate Pain (Scale 4 to 6) Hydromorphone HCl 1 mg 08/12/24 01:49 08/13/24 08:17 Hydromorphone 1 Mg/Ml 1 Ml Syringe IVP 1 mg Q3HR PRN Administration Severe Pain (Scale 7 to 10) Dextrose/Sodium Chloride 1,000 mls @ 80 mls/hr 08/12/24 02:00 08/13/24 01:21 Dextrose 5%-1/2ns Iv Soln IV 80 mls/hr .[id number] ELPIDIO Administration Ipratropium [place] 0.5 mg 08/12/24 08:00 08/13/24 09:22 Ipratropium 0.5 Mg/2.5 Ml Nebu INHALATION Not Given RT-QID ELPIDIO Lorazepam 1 mg 08/12/24 01:52 Lorazepam 1 Mg Tab PO BID PRN Anxiety Naloxone HCl 0.2 mg 08/12/24 01:49 Naloxone 0.4 Mg/Ml 1 Ml Vial IV Q2M PRN Opioid Reversal Nicotine 1 patch 08/12/24 17:00 08/13/24 08:20 Nicotine 21mg/24hr Patch TRANSDERM 1 patch DAILY ELPIDIO Administration Ondansetron HCl 4 mg 08/12/24 01:49 08/12/24 21:58 Ondansetron 4 Mg/2 Ml Vial IVP 4 mg Q8HR PRN Administration Nausea And Vomiting Pantoprazole Sodium 40 mg 08/12/24 07:30 08/13/24 05:20 Pantoprazole 40 Mg Tablet PO 40 mg DAILY@0730 ELPIDIO Administration Quetiapine Fumarate 100 mg 08/12/24 01:52 08/12/24 21:55 Quetiapine 100 Mg Tab PO 100 mg HS ELPIDIO Administration Trazodone HCl 100 mg 08/12/24 21:00 08/12/24 21:56 Trazodone Hcl 100 Mg Tab PO 100 mg HS ELPIDIO Administration Intake and Output 08/12/24 08/13/24 08/13/24 22:59 06:59 14:59 Intake Total 118 Balance 118 Intake: Oral 118 Other: # Voids 1 1 Weight 81.193 kg 08/13/24 04:39 08/13/24 04:39
[2024-08-13] MEDS ORDERED: diphenhydrAMINE 50 MG CAP PO PRN (14:44)
[2024-08-13] MEDS: diphenhydrAMINE 25 MG CAP PO PRN (15:48)
[2024-08-13] MEDS: POTASSIUM CHLORIDE 10 MEQ in WATER FOR INJECTION 1 100ML.BAG IVPB SCH (18:35)
[2024-08-13] MEDS: LORazepam 1 MG TAB PO PRN (22:40)
[2024-08-14 08:24] LABS: Basophils # (A) 0.03 X 10*3/uL (0.00-0.10); Basophils % (A) 0.5 %; Eosinophils # (A) 0.08 X 10*3/uL (0.04-0.35); Eosinophils % (A) 1.3 %; HCT 32.6 % (37.2-46.3); HGB 10.7 g/dL (12.0-15.0); Lymphocytes # (A) 2.47 X 10*3/uL (0.90-5.00); Lymphocytes % (A) 38.8 %; MCH 28.5 pg (27.0-32.0); MCHC 32.8 g/dL (32.0-37.0); MCV 86.9 FL (80.0-97.0); Mean Platelet Volume 12.4 FL (9.5-12.2); Monocytes # (A) 0.67 X 10*3/uL (0.20-1.00); Monocytes % (A) 10.5 %; NRBC Per 100 WBC 0 X 10*3/uL (0.00-0.01); Neutrophils # (A) 3.09 X 10*3/uL (1.80-7.70); Neutrophils % (A) 48.6 %; Platelet Count 243 X 10*3/uL (140-440); RBC 3.75 X 10*6/uL (4.10-5.20); RDW 20.5 % (11.5-14.5); WBC 6.36 X 10*3/uL (4.50-10.00)
[2024-08-14 09:17] LABS: BUN/Creat Ratio <8.75 Ratio (12.00-20.00); Blood Urea Nitrogen <3.5 mg/dL (9.0-27.0); Glucose 97 mg/dL (70-110)
[2024-08-14 09:18] LABS: ALT 11 U/L (8-44); AST 18 U/L (13-35); Albumin 2.9 g/dL (3.8-4.9); Albumin/Globulin Ratio 1.45 Ratio (1.60-3.17); Alkaline Phosphatase 50 U/L (41-126); Carbon Dioxide 26.4 mmol/L (21.6-31.8); Chloride 105 mmol/L (96-109); Potassium 2.9 mmol/L (3.5-5.5); Sodium 142 mmol/L (135-145); Total Bilirubin 0.3 mg/dL (0.3-1.2); Total Protein 4.9 g/dL (6.2-8.2)
--- NOTE | 2024-08-14 09:25 | PN ---
PROGRESS NOTE A 33-year-old white female. She is back on clear liquids. Surgery consult pending. Her potassium is low today at 2.6. They were replaced with IV potassium supplementation. Taken back to clear liquids. OBJECTIVE: CARDIOVASCULAR: S1, S2. LUNGS: Transmitted upper airway sounds. GI: Soft. HEMATOLOGY: Negative Homans. Cardiology assessed her abnormal EKG today. Ordered the echo. History of PE, GERD, sleep apnea, obesity. EKG shows some ischemic changes. ASSESSMENT: GI related hypokalemia, history of PE, d-dimer, mildly abnormal TSH in the past. Supportive care, pain control, echo, really want to do a heart catheterization or any chest pain workup at this time. Prognosis guarded. MMODL / IJN: [id number] /
--- NOTE | 2024-08-14 11:06 | P.PN ---
Subjective HISTORY OF PRESENTING ILLNESS This is a pleasant 33-year-old with past medical history significant for a number of GI issues mainly since gastric bypass, pulmonary embolism, GERD, sleep apnea, obesity, anxiety. She has not seen a occup therapist. Cardiology was consult that secondary to tachycardia. She presents secondary to nausea, decreased appetite, vomiting and abdominal pain over last 1-2 weeks. She has had a number of these issues in the past. She had gastric bypass in May 2024 and states she has had a number of issues since then. She additionally a pulmonary embolism however did well on anticoagulation. D-dimer was noted to be normal. She has remained tachycardic with heart rates in the low 100s with sinus tachycardia. EKG shows normal sinus rhythm, sinus tachycardia with no significant ST or T-wave abnormalities. She denies any actual chest pain or pressure. Troponin ordered to be normal 1. She has been getting Dilaudid with some improvement in her pain. Noted to additionally be hypokalemic. 08/14 Patient seen and examined. Patient denies any chest pain or pressure. Still has abdominal pain. Does not have any significant appetite. Hemoglobin mildly decreased to 10.3. Remains in sinus tachycardia. TSH was normal. Echocardiogram showed EF 55% with no significant valvular disease. PHYSICAL EXAMINATION Vital signs reviewed. CONSTITUTIONAL: No apparent distress. HEENT: Head is normocephalic. Pupils are equal, round. Sclerae anicteric. Mucous membranes of the mouth are moist. No JVD. No carotid bruit. CHEST EXAMINATION: Lungs are clear to auscultation. No chest wall tenderness is noted on palpation or with deep breathing. HEART EXAMINATION: Regular rate and rhythm. S1, S2 heard. No murmurs, gallops or rub. ABDOMEN: Soft, nontender. Positive bowel sounds. EXTREMITIES: 2+ peripheral pulses, no lower extremity edema and no calf tenderness. NEUROLOGIC EXAMINATION: Patient is awake, alert and oriented x3. ASSESSMENT Abdominal pain, appears more GI related Sinus tachycardia, appears reactive from pain, possible dehydration Hypokalemia History of PE, d-dimer normal Obesity Status post gastric bypass anemia PLAN Echo shows preserved EF. Patient not have any significant chest pain. Sinus tachycardia appears reactive with normal thyroid function. No further recommendations from a cardiology standpoint. Treat underlying GI/ abdominal pain. Please call with questions. Objective - Vital Signs Vital signs: Vital Signs Temp 98.3 F 08/14/24 07:00 Pulse 101 H 08/14/24 07:00 Resp 16 08/14/24 07:00 BP 137/87 08/14/24 07:00 Pulse Ox 95 08/14/24 07:00 FiO2 Intake & Output 08/13/24 08/14/24 08/14/24 18:59 06:59 18:59 Other: Voiding Method Toilet Toilet # Voids 3 2 - Labs CBC & Chem 7: 08/14/24 05:19 08/14/24 05:19 Labs: Abnormal Lab Results - Last 24 Hours (Table) 08/14/24 08/14/24 Range/Units 05:19 05:19 RBC 3.75 L (4.10-5.20) X 10*6/uL Hgb 10.7 L (12.0-15.0) g/dL Hct 32.6 L (37.2-46.3) % RDW 20.5 H (11.5-14.5) % MPV 12.4 H (9.5-12.2) FL Potassium 2.9 L (3.5-5.5) mmol/L BUN <3.5 L (9.0-27.0) mg/dL Creatinine 0.4 L (0.6-1.5) mg/dL BUN/Creatinine Ratio <8.75 L (12.00-20.00) Ratio Total Protein 4.9 L (6.2-8.2) g/dL Albumin 2.9 L (3.8-4.9) g/dL Albumin/Globulin Ratio 1.45 L (1.60-3.17) Ratio
--- NOTE | 2024-08-14 14:51 | CA ---
Transthoracic Echo Report Name: Geneva Chavez Age: 33 Gender: F : 1990 Exam Date: 08/13/2024 16:02 Exam Location: [facility] Ht (in): 62 Wt (lb): 179 Ordering Physician: Manas Nayak DO ([email or web address]) Attending/Referring Phys: Diet Counselor Roseann Vinson RDCS Procedure CPT: Indications: CP Cardiac Hx: Technical Quality: Good Contrast 1: Total Dose (mL): Contrast 2: Total Dose (mL): MEASUREMENTS (Male / Female) Normal Values 2D ECHO LV Diastolic Diameter PLAX 3.9 cm 4.2 - 5.9 / 3.9 - 5.3 cm LV Systolic Diameter PLAX 3.2 cm IVS Diastolic Thickness 1.1 cm 0.6 - 1.0 / 0.6 - 0.9 cm LVPW Diastolic Thickness 1.2 cm 0.6 - 1.0 / 0.6 - 0.9 cm LV Relative Wall Thickness 0.6 RV Internal Dim ED PLAX 3.0 cm LV Diastolic Volume MOD BP 118.4 cm??? 67 - 155 / 56 - 104 cm??? LV Systolic Volume MOD BP 60.5 cm??? 22 - 58 / 19 - 49 cm??? LV Ejection Fraction MOD BP 49.0 % >= 55 % LV Cardiac Index MOD BP 2569.1 cm???/min???m??? LV Diastolic Volume MOD 4C 114.9 cm??? LV Systolic Volume MOD 4C 56.9 cm??? LV Ejection Fraction MOD 4C 50.5 % LV Cardiac Index MOD 4C 2572.0 cm???/min???m??? LV Diastolic Length 4C 8.0 cm LV Systolic Length 4C 6.9 cm LV Diastolic Volume MOD 2C 115.0 cm??? LV Systolic Volume MOD 2C 63.3 cm??? LV Ejection Fraction MOD 2C 44.9 % LV Cardiac Index MOD 2C 2288.9 cm???/min???m??? LV Diastolic Length 2C 7.5 cm LV Systolic Length 2C 7.2 cm LA Volume 58.9 cm??? 18 - 58 / 22 - 52 cm??? LA Volume Index 30.7 cm???/m??? 16 - 28 cm???/m??? M-MODE Aortic Root Diameter MM 3.2 cm AV Cusp Separation MM 2.4 cm DOPPLER AV Peak Velocity 136.4 cm/s AV Peak Gradient 7.4 mmHg MV Area PHT 14.8 cm??? Mitral E Point Velocity 66.4 cm/s Mitral A Point Velocity 96.8 cm/s Mitral E to A Ratio 0.7 MV Deceleration Time 51.1 ms FINDINGS Left Ventricle Left ventricular ejection fraction is estimated at 50-55 %. Left ventricular cavity size normal. Mildly increased septal wall thickness. Mildly increased posterior wall thickness. Moderately increased left ventricular diastolic volume. Moderately increased left ventricular systolic volume. Mildly decreased left ventricular ejection fraction. Right Ventricle Normal right ventricular size and function. Unable to estimate the right ventricular systolic pressure. Right Atrium Normal right atrial size. No right atrial thrombus or mass seen. Left Atrium Mildly increased left atrial volume. No left atrial thrombus or mass present. Mitral Valve Structurally normal mitral valve. No mitral stenosis, regurgitation or prolapse. Aortic Valve Trileaflet aortic valve. No aortic valve stenosis or regurgitation. Tricuspid Valve Structurally normal tricuspid valve. Trace tricuspid regurgitation. Pulmonic Valve Structurally normal pulmonic valve. Pericardium No pericardial or pleural effusion. Aorta Normal size aortic root and proximal ascending aorta. CONCLUSIONS Left ventricular ejection fraction 50-55% Mildly increased left ventricular wall thickness No mitral regurgitation Trace tricuspid regurgitation No pericardial effusion Previewed by: Dr. Manas Nayak DO (Electronically Signed) Final Date: 14 August 2024 14:50
[2024-08-14] MEDS ORDERED: ALBUTEROL NEBULIZED 2.5 MG/3 ML INHALATION PRN (15:17)
[2024-08-14] MEDS: POTASSIUM CHLORIDE 10 MEQ in WATER FOR INJECTION 1 100ML.BAG IVPB SCH (15:29)
[2024-08-15] MEDS ORDERED: Magnesium Replacement Protocol 1 EACH MISC MISCELLANE PRN ×3 (11:23→11:37)
[2024-08-15] MEDS: MAGNESIUM SULFATE-D5W PMX 1 GM in DEXTROSE/WATER 1 100ML.BAG IVPB SCH (11:50)
--- NOTE | 2024-08-15 12:54 | P.GSCN ---
History of Present Illness Consult date: 08/15/24 History of present illness: CHIEF COMPLAINT: Nausea and vomiting with abdominal pain HISTORY OF PRESENT ILLNESS: This is a 33-year-old female with multiple hospitalizations for recurrent nausea vomiting with abdominal pain. Patient with history of sleeve gastrectomy in December 2023 and then converted to a gastric bypass in June 11, 2024 at [facility]. Patient reports that symptoms are exactly the same with nausea vomiting unable to keep anything down. She was found to be hypokalemic. She was also sinus tachycardic likely due to dehydration and was evaluated by cardiology service. She is receiving IV fluids. PAST MEDICAL HISTORY: GERD/Reflux, Pulmonary Embolus (PE), Sleep Apnea/CPAP/BIPAP, anxiety, bipolar, depression PAST SURGICAL HISTORY: Bariatric Surgery, Section, Cholecystectomy, Tubal Ligation, Uterine Ablation, 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. gastric bypass 06/11/24 MEDICATIONS: See below ALLERGIES: See below SOCIAL HISTORY: No illicit drug use. REVIEW OF SYSTEMS: CONSTITUTIONAL: Denies fever or chills. HEENT: Denies blurred vision, vision changes, or eye pain. Denies hemoptysis CARDIOVASCULAR: Denies chest pain or pressure. RESPIRATORY: No shortness of breath. GASTROINTESTINAL: See HPI for pertinent findings HEMATOLOGIC: Denies bleeding disorders. GENITOURINARY: Denies any blood in urine or increased urinary frequency. SKIN: Denies pruitis. Denies rash. PHYSICAL EXAM: VITAL SIGNS: Reviewed GENERAL: Well-developed in no acute distress. ABDOMEN: Soft. Nondistended. Mild epigastric tenderness NEUROLOGIC: Alert and oriented. Cranial nerves II through XII grossly intact. LABORATORY DATA: WBC down from 11.4 to 6.36 Hgb 10.7 platelets 243 D-dimer 0.58 Sodium 142 potassium is 2.9 creatinine 0.4 Magnesium 1.2 IMAGING: ASSESSMENT: 1. Chronic abdominal pain with nausea and vomiting 2. Dehydration 3. Hypomagnesemia 4. Hypokalemia 5. Low thiamine level. Thiamine level as of 07/27/2024 was 17 PLAN: -Continue to correct magnesium and potassium. Repeat potassium level pending -Continue IV fluid hydration -Continue antiemetics -Continue clear liquid diet -Start IV thiamine 100 mg daily Physician Stull Installer note has been reviewed by physician. Signing provider agrees with the documented findings, assessment, and plan of care. Past Medical History Past Medical History: GERD/Reflux, Pulmonary Embolus (PE), Sleep Apnea/CPAP/BIPAP Additional Past Medical History / Comment(s): iron defiency anemia, currently getting iron infusions, no cpap used, pulmonary embolism 02/13/24 History of Any Multi-Drug Resistant Organisms: None Reported Past Surgical History: Bariatric Surgery, Section, Cholecystectomy, Tubal Ligation, Uterine Ablation Additional Past Surgical History / Comment(s): 2008 AND 2015 (c/s) and 2010 (cholecyst). 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 gastric bypass 06/11/24 Past Anesthesia/Blood Transfusion Reactions: No Reported Reaction Past Psychological History: Anxiety, Bipolar, Depression Additional Psychological History / Comment(s): Pt on oral medications Smoking Status: Former smoker Past Alcohol Use History: None Reported Additional Past Alcohol Use History / Comment(s): Pt. states she quit smoking cigarettes , pt denies vaping at this time Past Drug Use History: None Reported - Past Family History Mother Family Medical History: Asthma, COPD, Diabetes Mellitus, Hypertension Additional Family Medical History / Comment(s): depression, anxiety, sleep apne a, Father Family Medical History: Hypertension Additional Family Medical History / Comment(s): arthritis Medications and Allergies Home Medications Medication Instructions Recorded Confirmed Type Asenapine Maleate [Saphris] 10 mg SUBLINGUAL HS 07/12/24 08/12/24 History Budesonide/Formoterol Fumarate 2 puff INHALATION RT-BID 07/12/24 08/12/24 History [Symbicort 160-4.5 Mcg Inhaler] HYDROcodone/APAP 5-325MG [[place] 1 tab PO BID PRN 07/12/24 08/12/24 History 5-325] LORazepam [Ativan] 1 mg PO BID PRN 07/12/24 08/12/24 History QUEtiapine [SEROquel] 100 mg PO HS 07/12/24 08/12/24 History Tiotropium 2.5 Mcg/Puff [Spiriva 2 puff INHALATION RT-DAILY 07/12/24 08/12/24 History Respimat 2.5 Mcg] traZODone HCL [Desyrel] 100 mg PO HS 07/12/24 08/12/24 History Omeprazole [PriLOSEC] 40 mg PO DAILY 07/26/24 08/12/24 History Ondansetron [Zofran] 4 mg PO BID PRN 07/26/24 08/12/24 History Allergies Allergy/AdvReac Type Severity Reaction Status Date / Time latex Allergy Rash/Hives Verified 08/12/24 10:34 morphine AdvReac Itching Verified 08/12/24 10:34 Surgical - Exam Vital Signs Temp Pulse Resp BP Pulse Ox 98.4 F 124 H 22 127/76 99 08/11/24 18:47 08/11/24 18:47 08/11/24 18:47 08/11/24 18:47 08/11/24 18:47 Results - Labs 08/14/24 05:19 08/14/24 05:19 Abnormal Lab Results - Last 24 Hours (Table) 08/15/24 Range/Units 10:07 Magnesium 1.2 L (1.6-2.3) mg/dL
[2024-08-15 13:31] LABS: African American GFR (CKD) >90 (>60 ml/min/1.73 sqM); Anion Gap 3 mmol/L; Blood Urea Nitrogen <2 mg/dL (7-17); Calcium 8.9 mg/dL (8.4-10.2); Carbon Dioxide 28 mmol/L (22-30); Chloride 106 mmol/L (98-107); Glucose 105 mg/dL (74-99); Non-African American GFR(CKD) >90 (>60 ml/min/1.73 sqM); Potassium 2.9 mmol/L (3.5-5.1); Sodium 137 mmol/L (137-145)
[2024-08-15] MEDS ORDERED: Potassium Replacement Protocol 1 EACH MISC MISCELLANE PRN ×2 (13:51→15:12)
[2024-08-15] MEDS ORDERED: POTASSIUM CHLORIDE 10 MEQ in WATER FOR INJECTION 1 100ML.BAG IVPB SCH (14:00)
[2024-08-15] MEDS: SCOPOLAMINE 1 MG/72 HR PATCH TRANSDERM SCH (15:15)
[2024-08-15] MEDS: POTASSIUM CHLORIDE ER 20 MEQ TAB.ER PO SCH (16:46)
[2024-08-15] MEDS: THIAMINE 100 MG in SODIUM CHLORIDE 0.9% 50 ML IVPB SCH (16:46)
[2024-08-15] MEDS: KETOROLAC 15 MG/ML 1 ML VIAL IVP SCH (16:52)
[2024-08-15] MEDS: HYDROcodone/APAP 10-325MG 1 EACH TAB PO PRN (20:23)
[2024-08-16] MEDS: GABAPENTIN 300 MG CAP PO SCH (00:08)
--- NOTE | 2024-08-16 00:13 | PN ---
PROGRESS NOTE SUBJECTIVE: A 33-year-old female. She was having nausea, vomiting, and persistent emesis. No GI consultation this week. PHYSICAL EXAMINATION: VITAL SIGNS: Blood pressure 140s to 160s over 70 to 90s, temperature 98.3, pulse is 101 to 111, O2 of 99% on room air. CARDIOVASCULAR: S1, S2. LUNGS: Transmitted upper sounds. GI: Soft, nontender. HEMATOLOGY: Negative Homans. PSYCHIATRIC: Fair mood and affect. LABORATORY DATA: Hemoglobin is 10.7, white count 6.36. Potassium is low at 2.9 secondary to persistent emesis. ASSESSMENT: 1. [id number] hypokalemia. Replace potassium, electrolytes. IV fluid replacements. 2. Nausea and vomiting surgical recommendations. PROGNOSIS: Guarded. Please see further orders. MMODL / IJN: [id number] /
--- NOTE | 2024-08-16 06:49 | PN ---
PROGRESS NOTE A 33-year-old female, who presents with nausea and vomiting. Surgical consult is pending. The patient continues to have nausea and vomiting with hypokalemia, hypomagnesemia which have been replaced. Abdominal pain more GI related, there is no GI doctor on today, sinus tachycardia dehydration. Cardiology saw her for an abnormal EKG. She has a history of PE. D-dimer was normal. Obesity status post gastric bypass, anemia. Echo shows preserved ejection fraction. So they are going to sign off. Waiting for surgical recommendations. Replace magnesium and potassium. Diet as tolerated. May need transfer to [facility] if not improved. MMODL / IJN: [id number] /
[2024-08-16 08:23] VITALS: RESP 16
[2024-08-16 09:14] LABS: Basophils # (A) 0.03 X 10*3/uL (0.00-0.10); Basophils % (A) 0.6 %; Eosinophils % (A) 1.9 %; HCT 31.6 % (37.2-46.3); HGB 10.2 g/dL (12.0-15.0); Lymphocytes # (A) 2.39 X 10*3/uL (0.90-5.00); Lymphocytes % (A) 45.7 %; MCH 27.9 pg (27.0-32.0); MCHC 32.3 g/dL (32.0-37.0); MCV 86.6 FL (80.0-97.0); Monocytes # (A) 0.48 X 10*3/uL (0.20-1.00); Monocytes % (A) 9.2 %; NRBC Per 100 WBC 0 X 10*3/uL (0.00-0.01); Neutrophils # (A) 2.22 X 10*3/uL (1.80-7.70); Neutrophils % (A) 42.4 %; Platelet Count 194 X 10*3/uL (140-440); RBC 3.65 X 10*6/uL (4.10-5.20); RDW 20.4 % (11.5-14.5); WBC 5.23 X 10*3/uL (4.50-10.00)
[2024-08-16 09:22] LABS: BUN/Creat Ratio <11.67 Ratio (12.00-20.00); Blood Urea Nitrogen <3.5 mg/dL (9.0-27.0); Carbon Dioxide 25.1 mmol/L (21.6-31.8); Chloride 107 mmol/L (96-109); Glucose 96 mg/dL (70-110); Potassium 3.4 mmol/L (3.5-5.5); Sodium 142 mmol/L (135-145)
[2024-08-16 09:23] LABS: ALT 14 U/L (8-44); AST 30 U/L (13-35); Albumin 2.6 g/dL (3.8-4.9); Albumin/Globulin Ratio 1.24 Ratio (1.60-3.17); Alkaline Phosphatase 46 U/L (41-126); Calcium 8.3 mg/dL (8.7-10.3); Globulin 2.1 g/dL (1.6-3.3); Total Bilirubin 0.2 mg/dL (0.3-1.2); Total Protein 4.7 g/dL (6.2-8.2)
[2024-08-16] MEDS: POTASSIUM CHLORIDE ER 20 MEQ TAB.ER PO SCH (12:10)
[2024-08-16 13:09] VITALS: BP 111/74; PULSE 98; TEMP 98.1
--- NOTE | 2024-08-16 13:54 | P.PN ---
Subjective Progress Note Date: 08/16/24 SURGICAL PROGRESS NOTE CHIEF COMPLAINT: Intractable nausea vomiting HISTORY OF PRESENT ILLNESS: Patient continues to report nausea and epigastric abdominal pain. Patient did report that she thought she could tolerate some full liquids. Her magnesium has normalized at 2.0 from 1.2. Potassium is currently at 3.4. Afebrile. PHYSICAL EXAM: VITAL SIGNS: Reviewed. GENERAL: Well-developed in no acute distress. ABDOMEN: Soft. Nondistended. Mild epigastric tenderness NEUROLOGIC: Alert and oriented. Cranial nerves II through XII grossly intact. ASSESSMENT: 1. Chronic abdominal pain with nausea and vomiting 2. Dehydration 3. Hypomagnesemia 4. Hypokalemia 5. Low thiamine level. Thiamine level as of 07/27/2024 was 17 6. 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 History of gastric bypass surgery June 11, 2024 PLAN: -Due to patient's recurrent nausea and vomiting and epigastric pain and prior gastric bypass surgery done at [facility] recommended that patient be transferred to [facility] transfer team has been contacted -Continue to correct potassium level -Continue thiamine daily Physician Sales And Service Representative note has been reviewed by physician. Signing provider agrees with the documented findings, assessment, and plan of care. Objective - Vital Signs Vital signs: Vital Signs Temp 98.1 F 08/16/24 13:08 Pulse 98 08/16/24 13:08 Resp 16 08/16/24 13:08 BP 111/74 08/16/24 13:08 Pulse Ox 99 08/16/24 13:08 FiO2 Intake & Output 08/15/24 08/16/24 08/16/24 18:59 06:59 18:59 Intake Total 60 960 1360 Balance 60 960 1360 Intake: Oral 60 960 1360 Other: Voiding Method Toilet Toilet # Voids 1 3 - Labs CBC & Chem 7: 08/16/24 03:29 08/16/24 03:29 Labs: Abnormal Lab Results - Last 24 Hours (Table) 08/16/24 08/16/24 Range/Units 03:29 03:29 RBC 3.65 L (4.10-5.20) X 10*6/uL Hgb 10.2 L (12.0-15.0) g/dL Hct 31.6 L (37.2-46.3) % RDW 20.4 H (11.5-14.5) % Potassium 3.4 L (3.5-5.5) mmol/L BUN <3.5 L (9.0-27.0) mg/dL Creatinine 0.3 L (0.6-1.5) mg/dL BUN/Creatinine Ratio <11.67 L (12.00-20.00) Ratio Calcium 8.3 L (8.7-10.3) mg/dL Total Bilirubin 0.2 L (0.3-1.2) mg/dL Total Protein 4.7 L (6.2-8.2) g/dL Albumin 2.6 L (3.8-4.9) g/dL Albumin/Globulin Ratio 1.24 L (1.60-3.17) Ratio
[2024-08-16 14:57] VITALS: BMI 32.7
--- NOTE | 2024-08-17 01:52 | PN ---
PROGRESS NOTE SUBJECTIVE: A 33-year-old white female with abdominal pain. EKG shows nonspecific ST-T changes. Surgery saw the patient, found her off Dilaudid, which we stopped. Gave low-dose morphine instead and just [place] for chronic abdominal pain. Trying to get her to tolerate liquids and foods so she can go home. OBJECTIVE: VITAL SIGNS: Blood pressure 111/74, O2 of 99% on room air, respiratory rate 16 to 18, temperature 98.1. Surgery saw the patient. She says she has chronic abdominal pain, nausea, vomiting, dehydration, hypomagnesemia, hypokalemia, low thiamine level, status post sleeve gastrectomy. We are going to try to transfer down to the [facility] for reconsult of the transfer team. She is on thiamine, potassium, etc. Prognosis guarded. Replace potassium, magnesium. MMODL / IJN: [id number] /
== END 2024-08-16 18:39 | disposition short-term general hospital (02) | DRG 251 ==
LOC: EC 18:42 → 6NMEDSUR 08-12 01:49 → OBSVTOIN 08-12 01:50 → 6NMEDSUR 08-12 06:30 → 5NMEDONC 08-16 08:00
PROVIDERS: ADMIT Family Medicine; ATTEND Family Medicine
DX: R10.9 Unspecified abdominal pain (principal); E66.9 Obesity, unspecified; Z68.32 Body mass index [BMI] 32.0-32.9, adult; D50.9 Iron deficiency anemia, unspecified; G89.29 Other chronic pain; G47.30 Sleep apnea, unspecified; E86.0 Dehydration; E83.42 Hypomagnesemia; E87.6 Hypokalemia; R10.13 Epigastric pain; R11.2 Nausea with vomiting, unspecified; R00.0 Tachycardia, unspecified; Z91.198 Patient's noncompliance with other medical treatment and regimen for other reason; Z98.84 Bariatric surgery status; Z79.51 Long term (current) use of inhaled steroids; Z87.891 Personal history of nicotine dependence; Z86.711 Personal history of pulmonary embolism
CPT/HCPCS: 36415; 80048; 80053; 81003; 82150; 83605; 83690; 83735; 84132; 84443; 84484; 84703; 85025; 85379; 87636; 93005; 93306; 96361; 96374; 96375; 96376; 99285

== ENCOUNTER 2024-09-06 00:54 | Emergency (ER) | payer OTHER ==
[2024-09-06] MEDS: ONDANSETRON 4 MG/2 ML VIAL IVP STA (02:17)
[2024-09-06] MEDS: SODIUM CHLORIDE 0.9% 1,000 ML IV STA (02:36)
[2024-09-06 03:09] VITALS: TEMP 97.9
[2024-09-06] MEDS: HYDROmorphone 0.5 MG/0.5 ML SYRINGE IVP STA (03:11)
[2024-09-06 05:09] LABS: Anisocytosis Slight; Basophils % (A) 0 %; Eosinophils # (A) 0.1 k/uL (0-0.7); Eosinophils % (A) 1 %; HCT 33.1 % (34.0-46.0); Hypochromasia Marked; Lymphocytes # (A) 1.8 k/uL (1.0-4.8); Lymphocytes % (A) 17 %; MCH 29.4 pg (25.0-35.0); MCHC 31.7 g/dL (31.0-37.0); MCV 92.9 fL (80.0-100.0); Mean Platelet Volume 9.3; Monocytes # (A) 0.4 k/uL (0-1.0); Monocytes % (A) 4 %; Neutrophils # (A) 8.2 k/uL (1.3-7.7); Neutrophils % (A) 77 %; Platelet Count 256 k/uL (150-450); RBC 3.56 m/uL (3.80-5.40); RDW 16.9 % (11.5-15.5); WBC 10.6 k/uL (3.8-10.6)
[2024-09-06 05:24] LABS: ALT 8 U/L (4-34); AST 14 U/L (14-36); African American GFR (CKD) >90 (>60 ml/min/1.73 sqM); Albumin 2.7 g/dL (3.5-5.0); Alkaline Phosphatase 65 U/L (38-126); Amylase 52 U/L (30-110); Anion Gap 2 mmol/L; Blood Urea Nitrogen 8 mg/dL (7-17); Calcium 8.8 mg/dL (8.4-10.2); Carbon Dioxide 24 mmol/L (22-30); Chloride 111 mmol/L (98-107); Glucose 78 mg/dL (74-99); Lipase 90 U/L (23-300); Non-African American GFR(CKD) >90 (>60 ml/min/1.73 sqM); Potassium 3.6 mmol/L (3.5-5.1); Sodium 137 mmol/L (137-145); Total Bilirubin 0.7 mg/dL (0.2-1.3); Total Protein 5.2 g/dL (6.3-8.2)
[2024-09-06 05:26] LABS: HGB 10.5 gm/dL (11.4-16.0)
--- NOTE | 2024-09-06 05:45 | ED ---
Abdominal Pain HPI - General Chief Complaint: Abdominal Pain Stated Complaint: ABD Pain, NVD Time Seen by Provider: 09/06/24 01:01 Source: patient Mode of arrival: ambulatory - History of Present Illness Initial Comments: This patient is a 34-year-old woman who states that she has constant flareups of abdominal pain since she had gastric sleeve surgery, which was converted to g astric bypass 4 months ago. The patient describes pains that are generally in the upper abdomen though they can migrate. They are somewhat intermittent. She describes them as crampy and like a bloating feeling. She has nausea and vomiting. She states that she tried managing at home with her medications for about the past 4 days but she continued to vomit. Patient denies fever or chills. No hematemesis or coffee-ground material. No change in bowel movements or urination. Patient also complains that she feels she has an abscess developing in her right axilla. She is fairly certain because she had 1 in the left axilla that required drainage. No fevers related MD Complaint: abdominal pain Onset/Timin -: days(s) Location: diffuse Radiation: none Migration to: no migration Severity: moderate Quality: cramping, fullness Consistency: intermittent Improves With: nothing Worsens With: nothing Associated Symptoms: nausea, vomiting - Related Data Patient : No (Endometrial ablation) Home Medications Medication Instructions Recorded Confirmed Asenapine Maleate [Saphris] 10 mg SUBLINGUAL HS 07/12/24 09/07/24 Budesonide/Formoterol Fumarate 2 puff INHALATION RT-BID 07/12/24 09/07/24 [Symbicort 160-4.5 Mcg Inhaler] LORazepam [Ativan] 1 mg PO BID PRN 07/12/24 09/07/24 QUEtiapine [SEROquel] 100 mg PO HS 07/12/24 09/07/24 Tiotropium 2.5 Mcg/Puff [Spiriva 2 puff INHALATION RT-DAILY 07/12/24 09/07/24 Respimat 2.5 Mcg] traZODone HCL [Desyrel] 100 mg PO HS 07/12/24 09/07/24 Omeprazole [PriLOSEC] 40 mg PO BID 07/26/24 09/07/24 Ondansetron [Zofran] 4 mg PO BID PRN 07/26/24 09/07/24 Nicotine 21Mg/24Hr Patch [Habitrol] 1 patch TRANSDERM DAILY 09/07/24 09/07/24 oxyCODONE HCL [OxyIR] 5 mg PO Q12H 09/07/24 09/07/24 Previous Rx's Medication Instructions Recorded Amoxic-Pot Clav 875-125Mg 1 tab PO BID 7 Days #14 tab 09/11/24 [Augmentin 875-125] Allergies Allergy/AdvReac Type Severity Reaction Status Date / Time latex Allergy Rash/Hives Verified 09/07/24 05:21 morphine AdvReac Itching Verified 09/07/24 05:21 Review of Systems ROS Statement: Those systems with pertinent positive or pertinent negative responses have been documented in the HPI. ROS Other: All systems not noted in ROS Statement are negative. Constitutional: Denies: fever, chills, weakness Respiratory: Denies: cough, dyspnea Cardiovascular: Denies: chest pain, palpitations, edema Gastrointestinal: Reports: as per HPI, abdominal pain, nausea, vomiting. 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 gastric bypass 06/11/24 Past Anesthesia/Blood Transfusion Reactions: No Reported Reaction Past Psychological History: Anxiety, Bipolar, Depression Smoking Status: Former smoker Past Alcohol Use History: None Reported Past Drug Use History: None Reported - Past Family History Mother Family Medical History: Asthma, COPD, Diabetes Mellitus, Hypertension Additional Family Medical History / Comment(s): depression, anxiety, sleep apnea, Father Family Medical History: Hypertension Additional Family Medical History / Comment(s): arthritis General Exam General appearance: alert, in no apparent distress Head exam: Present: atraumatic, normocephalic Eye exam: Present: normal appearance. Absent: scleral icterus, conjunctival injection ENT exam: Present: normal oropharynx Neck exam: Present: normal inspection Respiratory exam: Present: normal lung sounds bilaterally. Absent: respiratory distress, wheezes, rales, rhonchi, stridor, accessory muscle use Cardiovascular Exam: Present: regular rate, normal rhythm, normal heart sounds. Absent: systolic murmur, diastolic murmur, rubs, gallop GI/Abdominal exam: Present: soft. Absent: distended, tenderness, guarding, rebound, rigid, mass, pulsatile mass, hernia Extremities exam: Present: normal inspection, normal capillary refill. Absent: pedal edema, calf tenderness Back exam: Present: normal inspection Neurological exam: Present: alert Skin exam: Present: warm, dry, normal color, other (Approximately 4 cm diameter fluctuant area in the right axilla.) Course Vital Signs 09/06/24 09/06/24 09/06/24 00:56 01:06 03:06 Temperature 98 F 98.0 F 97.9 F Pulse Rate 124 H 119 H 97 Respiratory 20 17 17 Rate Blood Pressure 114/85 130/92 110/76 O2 Sat by Pulse 100 98 100 Oximetry 09/06/24 06:02 Temperature Pulse Rate 106 H Respiratory 18 Rate Blood Pressure 123/86 O2 Sat by Pulse 98 Oximetry Medical Decision Making - Medical Decision Making Patient is feeling better following medications. I did discuss that the recommended treatment for the axillary abscess would be incision and drainage. The patient states she would like to try course of antibiotics and follow with surgeon if it does not resolve. At this point no systemic symptoms so will attempt but suspect that this will not resolve the problem and this was explained. Was pt. sent in by a medical professional or institution (, PA, RECRUITMENT CONSULTANT, urgent care, hospital, or jail...) When possible be specific @ -[No] Did you speak to anyone other than the patient for history (EMS, parent, family, police, friend...)? What history was obtained from this source @ -[No] Did you review nursing and triage notes (agree or disagree)? Why? @ -[I reviewed and agree with nursing and triage notes] Were old charts reviewed (outside hosp., previous admission, EMS record, old EKG, old radiological studies, urgent care reports/EKG's, jail records)? Report findings @ -[No old charts were reviewed] Differential Diagnosis (chest pain, altered mental status, abdominal pain women, abdominal pain men, vaginal bleeding, weakness, fever, dyspnea, syncope, headache, dizziness, GI bleed, back pain, seizure, CVA, palpatations, mental health, musculoskeletal)? @ -[Differential Abdominal Pain Women: Appendicitis, Cholecystitis, diverticulosis, ischemic bowel, pancreatitis, hepatitis, UTI, gastroenteritis, AAA, incarcerated hernia, bowel obstruction, constipation, inflammatory bowel, hepatitis, peptic ulcer disease, splenic infarction, perforated viscus, vulvitis, ovarian torsion, PID, kidney stone, placenta abruption, this is not meant to be an all-inclusive list EKG interpreted by me (3pts min.). @ -[As above] X-rays interpreted by me (1pt min.). @ -[None done] CT interpreted by me (1pt min.). @ -[None done] U/S interpreted by me (1pt. min.). @ -[None done] What testing was considered but not performed or refused? (CT, X-rays, U/S, labs)? Why? @ -[CT abdomen is considered, but in the interest of limiting lifetime radiation dose this is held as the patient was having improvement in symptoms. Shared decision making practiced What meds were considered but not given or refused? Why? @ -[None] Did you discuss the management of the patient with other professionals (professionals i.e. , PA, RECRUITMENT CONSULTANT, lab, RT, psych nurse, mental health social worker, human insights lead ads marketing, teacher, navigation officer, case management specialist)? Give summary @ -[No] Was smoking cessation discussed for >3mins.? @ -[No] Was critical care preformed (if so, how long)? @ -[No] Were there social determinants of health that impacted care today? How? ( Homelessness, low income, unemployed, alcoholism, drug addiction, transportation, low edu. Level, literacy, decrease access to med. care, shelter, rehab)? @ -[No] Was there de-escalation of care discussed even if they declined (Discuss DNR or withdrawal of care, Hospice)? DNR status @ -[No] What co-morbidities impacted this encounter? (DM, HTN, Smoking, COPD, CAD, Cancer, CVA, ARF, Chemo, Hep., AIDS, mental health diagnosis, sleep apnea, morbid obesity)? @ -[History of chronic abdominal pain and also of gastric bypass. Was patient admitted / discharged? Hospital course, mention meds given and route, prescriptions, significant lab abnormalities, going to OR and other pertinent info. @ -[Patient is 34-year-old woman with chronic abdominal pains who does feel better with treatment here and would like to go home. Discussed appropriate further care as well as return parameters. I did recommend incision and drainage of the patient's abscess but at this point she is refusing Undiagnosed new problem with uncertain prognosis? @ -[No] Drug Therapy requiring intensive monitoring for toxicity (Heparin, Nitro, Insulin, Cardizem)? @ -[No] Were any procedures done? @ -[No] Diagnosis/symptom? @ -[Acute on chronic abdominal pain Abscess, right axilla Acute, or Chronic, or Acute on Chronic? @ -[Acute on chronic Uncomplicated (without systemic symptoms) or Complicated (systemic symptoms)? @ -[Uncomplicated Side effects of treatment? @ -[No] Exacerbation, Progression, or Severe Exacerbation? @ -[No] Poses a threat to life or bodily function? How? (Chest pain, [place], [place], pneumonia, PE, COPD, DKA, ARF, appy, cholecystitis, CVA, Diverticulitis, Homicidal, Suicidal, threat to staff... and all critical care pts) @ -[No] All treatments are based on ideal body weight as in ED triage - Lab Data Result diagrams: 09/06/24 04:46 09/06/24 04:46 Lab Results 09/06/24 09/06/24 09/06/24 Range/Units 04:46 04:46 04:50 WBC 10.6 (3.8-10.6) k/uL RBC 3.56 L (3.80-5.40) m/uL Hgb 10.5 L D (11.4-16.0) gm/dL Hct 33.1 L (34.0-46.0) % MCV 92.9 (80.0-100.0) fL MCH 29.4 (25.0-35.0) pg MCHC 31.7 (31.0-37.0) g/dL RDW 16.9 H (11.5-15.5) % Plt Count 256 (150-450) k/uL MPV 9.3 Neutrophils % 77 % Lymphocytes % 17 % Monocytes % 4 % Eosinophils % 1 % Basophils % 0 % Neutrophils # 8.2 H (1.3-7.7) k/uL Lymphocytes # 1.8 (1.0-4.8) k/uL Monocytes # 0.4 (0-1.0) k/uL Eosinophils # 0.1 (0-0.7) k/uL Basophils # 0.0 (0-0.2) k/uL Hypochromasia Marked Anisocytosis Slight Sodium 137 (137-145) mmol/L Potassium 3.6 (3.5-5.1) mmol/L Chloride 111 H (98-107) mmol/L Carbon Dioxide 24 (22-30) mmol/L Anion Gap 2 mmol/L BUN 8 (7-17) mg/dL Creatinine 0.49 L (0.52-1.04) mg/dL Est GFR (CKD-EPI)AfAm >90 (>60 ml/min/1.73 sqM) Est GFR (CKD-EPI)NonAf >90 (>60 ml/min/1.73 sqM) Glucose 78 (74-99) mg/dL Plasma Lactic Acid Case 0.6 L (0.7-2.0) mmol/L Calcium 8.8 (8.4-10.2) mg/dL Total Bilirubin 0.7 (0.2-1.3) mg/dL AST 14 (14-36) U/L ALT 8 (4-34) U/L Alkaline Phosphatase 65 (38-126) U/L Total Protein 5.2 L (6.3-8.2) g/dL Albumin 2.7 L (3.5-5.0) g/dL Amylase 52 (30-110) U/L Lipase 90 (23-300) U/L Disposition Clinical Impression: Abdominal pain, Abscess Disposition: HOME SELF-CARE Condition: Good Instructions (If sedation given, give patient instructions): Abscess (ED), Abdominal Pain (ED) Is patient prescribed a controlled substance at d/c from ED?: No Referrals: Justin Molina MD [Primary Care Provider] - 1-2 days Cher Agosto MD [STAFF PHYSICIAN] - 1-2 days
[2024-09-06] MEDS: HYDROcodone/APAP 7.5-325MG 1 EACH TAB PO ONE (05:59)
[2024-09-06] MEDS: SULFAMETHOX-TMP 800-160MG 1 EACH TAB PO STA (06:00)
[2024-09-06 06:04] VITALS: BP 123/86; PULSE 106; RESP 18
== END 2024-09-06 06:07 | disposition home or self-care (01) ==
LOC: EC 00:54
DX: R10.9 Unspecified abdominal pain (principal); Z98.84 Bariatric surgery status; Z87.891 Personal history of nicotine dependence; Z88.5 Allergy status to narcotic agent; Z91.040 Latex allergy status
CPT/HCPCS: 36415; 80053; 82150; 83605; 83690; 85025; 99284; 96374; 96375; 96361; J2405; J1171

== ENCOUNTER 2024-09-07 05:05 | Inpatient (IN) | payer OTHER ==
[2024-09-07 05:55] LABS: Anisocytosis Slight; Basophils % (A) 0 %; Eosinophils # (A) 0.2 k/uL (0-0.7); Eosinophils % (A) 1 %; HCT 37.1 % (34.0-46.0); HGB 11.3 gm/dL (11.4-16.0); Hypochromasia Marked; Lymphocytes % (A) 19 %; MCH 28.7 pg (25.0-35.0); MCHC 30.6 g/dL (31.0-37.0); Mean Platelet Volume 9.3; Monocytes # (A) 0.5 k/uL (0-1.0); Monocytes % (A) 4 %; Neutrophils % (A) 74 %; Platelet Count 263 k/uL (150-450); RBC 3.94 m/uL (3.80-5.40); RDW 17.1 % (11.5-15.5); WBC 10.7 k/uL (3.8-10.6)
--- NOTE | 2024-09-07 06:23 | ED ---
Nausea/Vomiting/Diarrhea HPI - General Chief complaint: Nausea/Vomiting/Diarrhea Stated complaint: N/V/Abd Pain Time Seen by Provider: 09/07/24 06:23 Source: patient, RN notes reviewed, old records reviewed Mode of arrival: ambulatory Limitations: no limitations - History of Present Illness Initial comments: 34-year-old female presented to the ER for evaluation of nausea, vomiting and abdominal pain. Patient reports a history of gastric 06-11-2024 completed at [facility]. Patient states for the past couple days she has had persis tent nausea and vomiting with epigastric abdominal pain without relief of vhjm-ynf-plydbof medications. Patient was seen here last night for similar complaint received symptomatic control and was discharged home. Patient denies any fevers or chills. Patient also mentions an abscess to right axilla. Patient was started on Bactrim last night. Patient reports that she had similar abscess in left axilla and required IV antibiotics at that time. Patient is not diabetic. No history of MRSA. Patient denies any fevers, cough, congestion, chest pain, shortness of breath, urinary complaints, constipation/diarrhea or peripheral edema. - Related Data Home Medications Medication Instructions Recorded Confirmed Asenapine Maleate [Saphris] 10 mg SUBLINGUAL HS 07/12/24 09/07/24 Budesonide/Formoterol Fumarate 2 puff INHALATION RT-BID 07/12/24 09/07/24 [Symbicort 160-4.5 Mcg Inhaler] LORazepam [Ativan] 1 mg PO BID PRN 07/12/24 09/07/24 QUEtiapine [SEROquel] 100 mg PO HS 07/12/24 09/07/24 Tiotropium 2.5 Mcg/Puff [Spiriva 2 puff INHALATION RT-DAILY 07/12/24 09/07/24 Respimat 2.5 Mcg] traZODone HCL [Desyrel] 100 mg PO HS 07/12/24 09/07/24 Omeprazole [PriLOSEC] 40 mg PO BID 07/26/24 09/07/24 Ondansetron [Zofran] 4 mg PO BID PRN 07/26/24 09/07/24 Nicotine 21Mg/24Hr Patch [Habitrol] 1 patch TRANSDERM DAILY 09/07/24 09/07/24 Sulfamethox-Tmp 800-160Mg [Bactrim 1 tab PO Q12HR 09/07/24 09/07/24 Ds] oxyCODONE HCL [OxyIR] 5 mg PO Q12H 09/07/24 09/07/24 Allergies Allergy/AdvReac Type Severity Reaction Status Date / Time latex Allergy Rash/Hives Verified 09/07/24 05:21 morphine AdvReac Itching Verified 09/07/24 05:21 Review of Systems ROS Statement: Those systems with pertinent positive or pertinent negative responses have been documented in the HPI. ROS Other: All systems not noted in ROS Statement are negative. Past Medical History Past Medical History: GERD/Reflux, Pulmonary Embolus (PE), Sleep Apnea/CPAP/BIPAP Additional Past Medical History / Comment(s): iron defiency anemia, currently getting iron infusions, no cpap used, pulmonary embolism 02/13/24 History of Any Multi-Drug Resistant Organisms: None Reported Past Surgical History: Bariatric Surgery, Section, Cholecystectomy, Tubal Ligation, Uterine Ablation Additional Past Surgical History / Comment(s): 2008 AND 2015 (c/s) and 2010 (cholecyst). 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 gastric bypass 06/11/24 Past Anesthesia/Blood Transfusion Reactions: No Reported Reaction Past Psychological History: Anxiety, Bipolar, Depression Smoking Status: Former smoker Past Alcohol Use History: None Reported Past Drug Use History: None Reported - Past Family History Mother Family Medical History: Asthma, COPD, Diabetes Mellitus, Hypertension Additional Family Medical History / Comment(s): depression, anxiety, sleep apnea, Father Family Medical History: Hypertension Additional Family Medical History / Comment(s): arthritis General Exam Limitations: no limitations General appearance: alert, in no apparent distress Respiratory exam: Present: normal lung sounds bilaterally. Absent: respiratory distress, wheezes, rales, rhonchi, stridor Cardiovascular Exam: Present: regular rate, normal rhythm, normal heart sounds. Absent: systolic murmur, diastolic murmur, rubs, gallop, clicks GI/Abdominal exam: Present: soft, tenderness (Epigastric), normal bowel sounds Extremities exam: Present: normal inspection, full ROM, normal capillary refill. Absent: tenderness, pedal edema, joint swelling, calf tenderness Neurological exam: Present: alert, oriented X3, CN II-XII intact Skin exam: Present: warm, dry, intact, normal color, other (4 cm area of fluctuance with mild overlying erythema to right axilla. No drainage present.). Absent: rash Course Vital Signs 09/07/24 09/07/24 09/07/24 05:18 06:46 10:10 Temperature 97.9 F Pulse Rate 109 H 84 90 Respiratory 20 16 20 Rate Blood Pressure 114/80 126/81 126/85 O2 Sat by Pulse 99 97 100 Oximetry - Reevaluation(s) Reevaluation #1: 09/07/24 08:34 Patient reevaluated after p.o. challenge. Patient states she had a bout of emesis and was unable to keep cracker down. Patient is asking for admission. 09/07/24 10:[address]S. Nuno for admission. Procedures - Incision & Drainage Consent Obtained: verbal consent Indication: abscess Site: other (right axilla) Size (cm): 4 Anesthetic Used: lidocaine 1%, without epi Amount (mLs): 4 I&D Cleaning Method: Chloroprep Sterile Field Used?: Yes Scalpel Used: #11 Ultrasound used: No Needle Aspiration Performed?: No Irrigation Performed?: No I&D Drainage Obtained: Pus, Blood Insertion of drain: No Culture Obtained?: Yes Patient Tolerated Procedure: well Medical Decision Making - Medical Decision Making Was pt. sent in by a medical professional or institution (, PA, MECHANICAL SYSTEM TECHNICIAN, urgent care, hospital, or detention...) When possible be specific @ -No Did you speak to anyone other than the patient for history (EMS, parent, family, police, friend...)? What history was obtained from this source @ -No Did you review nursing and triage notes (agree or disagree)? Why? @ -I reviewed and agree with nursing and triage notes Were old charts reviewed (outside hosp., previous admission, EMS record, old EKG, old radiological studies, urgent care reports/EKG's, detention records)? Report findings @ -Yes, I reviewed ER visit from 09-06-2024. Patient seen for similar complaint and received symptomatic control and was discharged home. Patient also started on Bactrim as she refused I&D of right axilla abscess. Differential Diagnosis (chest pain, altered mental status, abdominal pain women, abdominal pain men, vaginal bleeding, weakness, fever, dyspnea, syncope, headache, dizziness, GI bleed, back pain, seizure, CVA, palpatations, mental health, musculoskeletal)? @ -Differential Abdominal Pain Women: Appendicitis, Cholecystitis, diverticulosis, ischemic bowel, pancreatitis, hepatitis, UTI, gastroenteritis, AAA, incarcerated hernia, bowel obstruction, constipation, inflammatory bowel, hepatitis, peptic ulcer disease, splenic infarction, perforated viscus, vulvitis, ovarian torsion, PID, kidney stone, placenta abruption, this is not meant to be an all-inclusive list EKG interpreted by me (3pts min.). @ -[None done X-rays interpreted by me (1pt min.). @ -None done CT interpreted by me (1pt min.). @ -CT abdomen pelvis showing mild circumferential bladder wall thickening status post Glenn-en-Y gastric bypass and cholecystectomy. Prominent mesenteric lymph nodes measuring up to 1.1 cm remain unchanged. U/S interpreted by me (1pt. min.). @ -None done What testing was considered but not performed or refused? (CT, X-rays, U/S, labs)? Why? @ -None What meds were considered but not given or refused? Why? @ -None Did you discuss the management of the patient with other professionals (professionals i.e. , PA, MECHANICAL SYSTEM TECHNICIAN, lab, RT, psych nurse, social insurance analyst, sheet rock hanger, teacher, weapons officer, catalytic case operator)? Give summary @ -Yes, case discussed with Dr. María Nuno, for admission. Was smoking cessation discussed for >3mins.? @ -No Was critical care preformed (if so, how long)? @ -No Were there social determinants of health that impacted care today? How? (Homelessness, low income, unemployed, alcoholism, drug addiction, transportation, low edu. Level, literacy, decrease access to med. care, [place] [facility], rehab)? @ -No Was there de-escalation of care discussed even if they declined (Discuss DNR or withdrawal of care, Hospice)? DNR status @ -No What co-morbidities impacted this encounter? (DM, HTN, Smoking, COPD, CAD, Cancer, CVA, ARF, Chemo, Hep., AIDS, mental health diagnosis, sleep apnea, morbid obesity)? @ -History of gastric bypass Was patient admitted / discharged? Hospital course, mention meds given and route, prescriptions, significant lab abnormalities, going to OR and other pertinent info. @ -Admitted. 34-year-old female presented to the ER for evaluation of nausea, vomiting and abdominal pain. Patient seen here yesterday for similar complaint. Patient was started on Bactrim given right axilla abscess. Upon examination, patient resting upon exam room no signs of acute distress. There is epigastric abdominal tenderness to palpation. No rebound or guarding. Abdomen is soft. There is also a 4 cm area of fluctuance consistent with abscess to right axilla. No drainage present. Laboratory studies completed today show leukocytosis of 10.7 with a left shift. Hemoglobin 11.3 which appears to be chronic in nature. CMP unremarkable. Urinalysis appears concentrated and is contaminated with 5 epithelial cells. Urine hCG negative. CT abdomen pelvis negative for acute intra-abdominal process. Patient received symptomatic control in the ER with minor improvement. Patient was p.o. challenged and failed. Admission was considered at that time for intractable nausea, vomiting and abdominal pain. This was discussed with Dr. María Nuno. General surgery on consult. I&D performed in sterile fashion on right axilla abscess. Wound culture obtained. Patient started on Bactrim. Patient agreeable for admission. Case discussed with ED attending with Dr. Will. Undiagnosed new problem with uncertain prognosis? @ -No Drug Therapy requiring intensive monitoring for toxicity (Heparin, Nitro, Insulin, Cardizem)? @ -No Were any procedures done? @ -Yes, I&D Diagnosis/symptom? @ -Intractable nausea, vomiting/right axilla abscess Acute, or Chronic, or Acute on Chronic? @ -Acute on chronic/acute Uncomplicated (without systemic symptoms) or Complicated (systemic symptoms)? @ -Complicated Side effects of treatment? @ -No Exacerbation, Progression, or Severe Exacerbation? @ -No Poses a threat to life or bodily function? How? (Chest pain, [place], [place], pneumonia, PE, COPD, DKA, ARF, appy, cholecystitis, CVA, Diverticulitis, Homicidal, Suicidal, threat to staff... and all critical care pts) @ -No - Lab Data Result diagrams: 09/07/24 05:44 09/07/24 05:44 Lab Results 09/07/24 09/07/24 09/07/24 Range/Units 05:44 05:44 05:44 WBC 10.7 H (3.8-10.6) k/uL RBC 3.94 (3.80-5.40) m/uL Hgb 11.3 L (11.4-16.0) gm/dL Hct 37.1 (34.0-46.0) % MCV 94.0 (80.0-100.0) fL MCH 28.7 (25.0-35.0) pg MCHC 30.6 L (31.0-37.0) g/dL RDW 17.1 H (11.5-15.5) % Plt Count 263 (150-450) k/uL MPV 9.3 Neutrophils % 74 % Lymphocytes % 19 % Monocytes % 4 % Eosinophils % 1 % Basophils % 0 % Neutrophils # 8.0 H (1.3-7.7) k/uL Lymphocytes # 2.0 (1.0-4.8) k/uL Monocytes # 0.5 (0-1.0) k/uL Eosinophils # 0.2 (0-0.7) k/uL Basophils # 0.0 (0-0.2) k/uL Hypochromasia Marked Anisocytosis Slight Sodium 139 (137-145) mmol/L Potassium 3.7 (3.5-5.1) mmol/L Chloride 109 H (98-107) mmol/L Carbon Dioxide 21 L (22-30) mmol/L Anion Gap 9 mmol/L BUN 7 (7-17) mg/dL Creatinine 0.55 (0.52-1.04) mg/dL Est GFR (CKD-EPI)AfAm >90 (>60 ml/min/1.73 sqM) Est GFR (CKD-EPI)NonAf >90 (>60 ml/min/1.73 sqM) Glucose 81 (74-99) mg/dL Plasma Lactic Acid Case 0.6 L (0.7-2.0) mmol/L Calcium 9.5 (8.4-10.2) mg/dL Total Bilirubin 0.7 (0.2-1.3) mg/dL AST 18 (14-36) U/L ALT 9 (4-34) U/L Alkaline Phosphatase 70 (38-126) U/L Total Protein 5.8 L (6.3-8.2) g/dL Albumin 3.2 L (3.5-5.0) g/dL Amylase 52 (30-110) U/L Lipase 58 (23-300) U/L Urine Color Urine Appearance (Clear) Urine pH (5.0-8.0) Ur Specific [place] (1.001-1.035) Urine Protein (Negative) Urine Glucose (UA) (Negative) Urine Ketones (Negative) Urine Blood (Negative) Urine Nitrite (Negative) Urine Bilirubin (Negative) Urine Urobilinogen (<2.0) mg/dL Ur Leukocyte Esterase (Negative) Urine RBC (0-5) /hpf Urine WBC (0-5) /hpf Ur Squamous Epith Cells (0-4) /hpf Hyaline Casts (0-2) /lpf Urine Mucus (None) /hpf Urine HCG, Qual (Not Detectd) 09/07/24 09/07/24 Range/Units 05:59 05:59 WBC (3.8-10.6) k/uL RBC (3.80-5.40) m/uL Hgb (11.4-16.0) gm/dL Hct (34.0-46.0) % MCV (80.0-100.0) fL MCH (25.0-35.0) pg MCHC (31.0-37.0) g/dL RDW (11.5-15.5) % Plt Count (150-450) k/uL MPV Neutrophils % % Lymphocytes % % Monocytes % % Eosinophils % % Basophils % % Neutrophils # (1.3-7.7) k/uL Lymphocytes # (1.0-4.8) k/uL Monocytes # (0-1.0) k/uL Eosinophils # (0-0.7) k/uL Basophils # (0-0.2) k/uL Hypochromasia Anisocytosis Sodium (137-145) mmol/L Potassium (3.5-5.1) mmol/L Chloride (98-107) mmol/L Carbon Dioxide (22-30) mmol/L Anion Gap mmol/L BUN (7-17) mg/dL Creatinine (0.52-1.04) mg/dL Est GFR (CKD-EPI)AfAm (>60 ml/min/1.73 sqM) Est GFR (CKD-EPI)NonAf (>60 ml/min/1.73 sqM) Glucose (74-99) mg/dL Plasma Lactic Acid Case (0.7-2.0) mmol/L Calcium (8.4-10.2) mg/dL Total Bilirubin (0.2-1.3) mg/dL AST (14-36) U/L ALT (4-34) U/L Alkaline Phosphatase (38-126) U/L Total Protein (6.3-8.2) g/dL Albumin (3.5-5.0) g/dL Amylase (30-110) U/L Lipase (23-300) U/L Urine Color Yellow Urine Appearance Cloudy H (Clear) Urine pH 6.5 (5.0-8.0) Ur Specific [place] 1.017 (1.001-1.035) Urine Protein Trace H (Negative) Urine Glucose (UA) Negative (Negative) Urine Ketones 2+ H (Negative) Urine Blood Negative (Negative) Urine Nitrite Negative (Negative) Urine Bilirubin 1+ H (Negative) Urine Urobilinogen 4.0 (<2.0) mg/dL Ur Leukocyte Esterase Negative (Negative) Urine RBC 2 (0-5) /hpf Urine WBC 7 H (0-5) /hpf Ur Squamous Epith Cells 5 H (0-4) /hpf Hyaline Casts 12 H (0-2) /lpf Urine Mucus Many H (None) /hpf Urine HCG, Qual Not Detected (Not Detectd) - Radiology Data Radiology results: report reviewed, image reviewed Disposition Clinical Impression: Abscess of right axilla, Intractable nausea and vomiting, Intractable abdominal pain Disposition: ADMITTED IP TO THIS [facility] Condition: Stable Time of Disposition: 10:58
[2024-09-07 06:24] LABS: ALT 9 U/L (4-34); AST 18 U/L (14-36); African American GFR (CKD) >90 (>60 ml/min/1.73 sqM); Albumin 3.2 g/dL (3.5-5.0); Alkaline Phosphatase 70 U/L (38-126); Amylase 52 U/L (30-110); Anion Gap 9 mmol/L; Blood Urea Nitrogen 7 mg/dL (7-17); Calcium 9.5 mg/dL (8.4-10.2); Carbon Dioxide 21 mmol/L (22-30); Chloride 109 mmol/L (98-107); Glucose 81 mg/dL (74-99); Lipase 58 U/L (23-300); Non-African American GFR(CKD) >90 (>60 ml/min/1.73 sqM); Potassium 3.7 mmol/L (3.5-5.1); Sodium 139 mmol/L (137-145); Total Bilirubin 0.7 mg/dL (0.2-1.3); Total Protein 5.8 g/dL (6.3-8.2)
[2024-09-07] MEDS: KETOROLAC 15 MG/ML 1 ML VIAL IVP STA (06:25)
[2024-09-07] MEDS: SODIUM CHLORIDE 0.9% 1,000 ML IV STA (06:25)
[2024-09-07] MEDS: ONDANSETRON 4 MG/2 ML VIAL IVP STA (06:25)
[2024-09-07] MEDS: HYDROmorphone 1 MG/ML 1 ML SYRINGE IVP STA (06:27)
[2024-09-07 06:32] LABS: Appearance,Urine Cloudy (Clear); Bilirubin,Urine 1+ (Negative); Blood,Urine Negative (Negative); Color,Urine Yellow; Glucose,Urine (UA) Negative (Negative); Hyaline Casts,Urine 12 /lpf (0-2); Ketones,Urine 2+ (Negative); Leukocyte Esterase,Urine Negative (Negative); Mucus,Urine Many /hpf; Nitrite,Urine Negative (Negative); PH, Urine 6.5 (5.0-8.0); Protein,Urine Trace (Negative); RBC,Urine 2 /hpf (0-5); Specific Gravity,Urine 1.017 (1.001-1.035); Squamous Epithelial Cell,Urine 5 /hpf (0-4); WBC,Urine 7 /hpf (0-5)
[2024-09-07] MEDS: LIDOCAINE 1% INJ 10MG/ML (20 ML MDV) SQ ONE (07:03)
[2024-09-07] MEDS: HYDROmorphone 0.5 MG/0.5 ML SYRINGE IVP STA (10:09)
--- NOTE | 2024-09-07 10:09 | CT ---
EXAMINATION TYPE: CT abdomen pelvis w con DATE OF EXAM: 09/07/2024 9:29 AM COMPARISON: 07/26/2024 CLINICAL INDICATION: Female, 34 years old with history of abd pain hx bypass, Epigastric pain x 2 day s, TECHNIQUE: Contiguous axial scanning of the abdomen and pelvis following administration of 100 ml Iso toya 300 IV contrast. Delayed images through the kidneys and coronal/sagittal reconstructions perform ed. CT DLP: 795.3 mGycm, Automated exposure control for dose reduction was used. FINDINGS: Heart normal size without pericardial effusion. Lung bases clear without pleural effusion. Postsurgical change Kathleen-en-Y gastric bypass. No focal liver lesion or biliary ductal dilatation. Portal venous system is patent. Cholecystectomy c lips. Adrenal glands, kidneys, spleen, pancreas within normal limits. Prominent mesenteric lymph nodes measuring up tor 1.1 cm remain, for example, coronal image 50, proba wolf reactive/post inflammatory. No retroperitoneal adenopathy. No dilated small bowel, free fluid, or free air. Normal appendix. Scattered mild stool. Mildly redundant sigmoid colon. No pericolonic inflammatory ch khloe. Mild circumferential bladder wall thickening. Uterus anteverted, oblique towards the right. Left ovary is visualized. Right ovary not clearly delin eated from adjacent bowel loops. There is heterogeneous appearance and possible thickening at the lev el of the cervix, refer to axial images 72 and 74. Trace cul-de-sac free fluid likely physiologic. No pelvic lymphadenopathy. No osseous destructive process. IMPRESSION: 1. MILD CIRCUMFERENTIAL BLADDER WALL THICKENING. CORRELATE TO EXCLUDE CYSTITIS. TRACE CUL-DE-SAC FREE FLUID LIKELY PHYSIOLOGIC. 2. STATUS POST KATHLEEN-EN-Y GASTRIC BYPASS AND CHOLECYSTECTOMY. 3. PROMINENT MESENTERIC LYMPH NODES MEASURING UP TO 1.1 CM REMAIN UNCHANGED, LIKELY REACTIVE/POST INF LAMMATORY. [facility], , 09/07/2024 10:07 AM
[2024-09-07] MEDS ORDERED: NALOXONE 0.4 MG/ML 1 ML VIAL IV PRN (10:42)
[2024-09-07] MEDS ORDERED: ACETAMINOPHEN TAB 325 MG TAB PO PRN (10:42)
[2024-09-07] MEDS: SULFAMETHOX-TMP 800-160MG 1 EACH TAB PO STA (11:09)
[2024-09-07] MEDS: SODIUM CHLORIDE 0.9% 1,000 ML IV SCH (11:12)
--- NOTE | 2024-09-07 11:24 | P.HPIM ---
History of Present Illness H&P Date: 09/07/24 Chief Complaint: Abdominal pain and nausea Patient seen evaluate examined while covering for Dr. Justin Molina patient history of gastric sleeve then revision at [facility], for the last 2 days patient having pain in the epigastric region with intermittent episodes of vomiting however no hematemesis, patient took [id number]-[id number] medicine without any significant relief came into the hospital for further evaluation last night was seen was discharged but the problem was persistent came back to hospital in addition patient has axilla abscess on the right side and has been on Bactrim will consult infectious disease and surgery. Labs include WBC 10.7 hemoglobin hematocrit is 11/37 platelet count 263, chemistry significant for BUN/creatinine 7/1.55 rest of the LFTs within normal limit potassium 3.7 urine is cloudy negative for leukocyte esterase or nitrite currently patient is on IV fluids pain control and Zofran, per patient IV antibiotics works better compared to p.o. as in the past Other active medical problem including COPD asthma, generalized anxiety disorder, major depression, GERD, morbid obesity history of prior abscess formation Review of Systems All systems: negative Past Medical History Past Medical History: GERD/Reflux, Pulmonary Embolus (PE), Sleep Apnea/CP AP/BIPAP Additional Past Medical History / Comment(s): iron defiency anemia, currently getting iron infusions, no cpap used, pulmonary embolism 02/13/24 History of Any Multi-Drug Resistant Organisms: None Reported Past Surgical History: Bariatric Surgery, Section, Cholecystectomy, Tubal Ligation, Uterine Ablation Additional Past Surgical History / Comment(s): 2008 AND 2015 (c/s) and 2010 (c holecyst). 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 gastric bypass 06/11/24 Past Anesthesia/Blood Transfusion Reactions: No Reported Reaction Past Psychological History: Anxiety, Bipolar, Depression Smoking Status: Former smoker Past Alcohol Use History: None Reported Past Drug Use History: None Reported - Past Family History Mother Family Medical History: Asthma, COPD, Diabetes Mellitus, Hypertension Additional Family Medical History / Comment(s): depression, anxiety, sleep apnea, Father Family Medical History: Hypertension Additional Family Medical History / Comment(s): arthritis Medications and Allergies Home Medications Medication Instructions Recorded Confirmed Type Asenapine Maleate [Saphris] 10 mg SUBLINGUAL HS 07/12/24 09/07/24 History Budesonide/Formoterol Fumarate 2 puff INHALATION RT-BID 07/12/24 09/07/24 History [Symbicort 160-4.5 Mcg Inhaler] LORazepam [Ativan] 1 mg PO BID PRN 07/12/24 09/07/24 History QUEtiapine [SEROquel] 100 mg PO HS 07/12/24 09/07/24 History Tiotropium 2.5 Mcg/Puff [Spiriva 2 puff INHALATION RT-DAILY 07/12/24 09/07/24 History Respimat 2.5 Mcg] traZODone HCL [Desyrel] 100 mg PO HS 07/12/24 09/07/24 History Omeprazole [PriLOSEC] 40 mg PO BID 07/26/24 09/07/24 History Ondansetron [Zofran] 4 mg PO BID PRN 07/26/24 09/07/24 History Nicotine 21Mg/24Hr Patch [Habitrol] 1 patch TRANSDERM DAILY 09/07/24 09/07/24 History Sulfamethox-Tmp 800-160Mg [Bactrim 1 tab PO Q12HR 09/07/24 09/07/24 History Ds] oxyCODONE HCL [OxyIR] 5 mg PO Q12H 09/07/24 09/07/24 History Allergies Allergy/AdvReac Type Severity Reaction Status Date / Time latex Allergy Rash/Hives Verified 09/07/24 05:21 morphine AdvReac Itching Verified 09/07/24 05:21 Physical Exam Vitals: Vital Signs Temp Pulse Resp BP Pulse Ox 09/07/24 10:10 90 20 126/85 100 09/07/24 06:46 84 16 126/81 97 09/07/24 05:18 97.9 F 109 H 20 114/80 99 Intake and Output 09/06/24 09/07/24 09/07/24 22:59 06:59 14:59 Other: Weight 78.471 kg - Constitutional General appearance: mild distress, morbidly obese - EENT Eyes: PERRLA, poor dentition ENT: normal oropharynx Ears: bilateral: normal - Neck Neck: normal ROM Carotids: bilateral: upstroke normal Thyroid: bilateral: normal size - Respiratory Respiratory: bilateral: CTA - Cardiovascular Rhythm: regular Heart sounds: normal: S1, S2 - Gastrointestinal General gastrointestinal: normal bowel sounds, soft - Integumentary Integumentary: normal turgor - Neurologic Neurologic: CNII-XII intact - Musculoskeletal Musculoskeletal: gait normal, generalized weakness, strength equal bilaterally - Psychiatric Psychiatric: A&O x's 3, appropriate affect, intact judgment & insight Results CBC & Chem 7: 09/07/24 05:44 09/07/24 05:44 Labs: Abnormal Lab Results - Last 24 Hours (Table) 09/07/24 09/07/24 09/07/24 Range/Units 05:44 05:44 05:44 WBC 10.7 H (3.8-10.6) k/uL Hgb 11.3 L (11.4-16.0) gm/dL MCHC 30.6 L (31.0-37.0) g/dL RDW 17.1 H (11.5-15.5) % Neutrophils # 8.0 H (1.3-7.7) k/uL Chloride 109 H (98-107) mmol/L Carbon Dioxide 21 L (22-30) mmol/L Plasma Lactic Acid Case 0.6 L (0.7-2.0) mmol/L Total Protein 5.8 L (6.3-8.2) g/dL Albumin 3.2 L (3.5-5.0) g/dL Urine Appearance (Clear) Urine Protein (Negative) Urine Ketones (Negative) Urine Bilirubin (Negative) Urine WBC (0-5) /hpf Ur Squamous Epith Cells (0-4) /hpf Hyaline Casts (0-2) /lpf Urine Mucus (None) /hpf 09/07/24 Range/Units 05:59 WBC (3.8-10.6) k/uL Hgb (11.4-16.0) gm/dL MCHC (31.0-37.0) g/dL RDW (11.5-15.5) % Neutrophils # (1.3-7.7) k/uL Chloride (98-107) mmol/L Carbon Dioxide (22-30) mmol/L Plasma Lactic Acid Case (0.7-2.0) mmol/L Total Protein (6.3-8.2) g/dL Albumin (3.5-5.0) g/dL Urine Appearance Cloudy H (Clear) Urine Protein Trace H (Negative) Urine Ketones 2+ H (Negative) Urine Bilirubin 1+ H (Negative) Urine WBC 7 H (0-5) /hpf Ur Squamous Epith Cells 5 H (0-4) /hpf Hyaline Casts 12 H (0-2) /lpf Urine Mucus Many H (None) /hpf CT scan - abdomen: report reviewed, image reviewed (Abdomen bladder wall thickening suggestive of inflammatory changes, Glenn-en-Y gastric bypass and cholecystectomy prominent mesenteric lymph nodes up to 1.1 cm in size likely reactive inflammatory) Assessment and Plan Assessment: Abdominal pain nausea and vomiting, history of strick sleeve followed by gastric bypass, and revision consult general surgery Eccentric lymphadenopathy, likely reactive, consult general surgery Right axillary abscess, patient will need IV antibiotics will consult infectious disease Urinary tract infection Morbid obesity Major depression Likely sleep disordered breathing and sleep apnea Plan: N.p.o. except meds Gentle rehydration with IV fluids Pain medicine Continue antidepressant Awaiting recommendation from infectious disease as well as general surgery Patient will likely need periodic evaluation with CT scan due to lymphadenopathy Time with Patient: Greater than 30
--- NOTE | 2024-09-07 13:52 | P.GSCN ---
History of Present Illness Consult date: 09/07/24 History of present illness: CHIEF COMPLAINT: Abdominal pain with nausea and vomiting HISTORY OF PRESENT ILLNESS: This is a 34-year-old female with recurrent admissions for nausea, vomiting and abdominal pain. Patient with a history of sleeve gastrectomy in December 2023 and then converted to a gastric bypass in June 11 2024 at [facility]. Patient was transferred to to [facility] back in August due to her recurrent abdominal pain with nausea and vomiting. At that hospitalization they did proceed with an EGD with dilation. Patient reports after the procedure she was able to eat sandwiches. And then within the last 3 days she has had recurrent epigastric abdominal pain with nausea and vomiting. Patient reports that [facility] had told her that she may need repeat dilation. Patient states that she had tried to contact her surgeon's office but she has been playing phone tag with them so proceeded to [facility] to be evaluated. On previous admission patient has had low thiamine. She did receive received a few doses of IV thiamine during that last hospitalization. Patient also here with a right axilla abscess which she has had prior abscesses in the past in the axilla and groin area. She had a bedside I&D of the right axilla abscess in the ER. She was started on antibiotics with an infectious disease consult. PAST MEDICAL HISTORY: See below PAST SURGICAL HISTORY: See below MEDICATIONS: See below ALLERGIES: See below SOCIAL HISTORY: No illicit drug use. REVIEW OF SYSTEMS: CONSTITUTIONAL: Denies fever or chills. HEENT: Denies blurred vision, vision changes, or eye pain. Denies hemoptysis CARDIOVASCULAR: Denies chest pain or pressure. RESPIRATORY: No shortness of breath. GASTROINTESTINAL: See HPI for pertinent findings HEMATOLOGIC: Denies bleeding disorders. GENITOURINARY: Denies any blood in urine or increased urinary frequency. SKIN: Denies pruitis. Denies rash. PHYSICAL EXAM: VITAL SIGNS: Reviewed GENERAL: Well-developed in no acute distress. HEENT: No sclera icterus. Extraocular movements grossly intact. Moist buccal mucosa. Head is atraumatic, normocephalic. No nasal drainage. ABDOMEN: Soft. Nondistended. Epigastric tenderness with palpation NEUROLOGIC: Alert and oriented. Cranial nerves II through XII grossly intact. Extremities: Right axilla abscess with evidence of laceration from I&D and purulent drainage. There is erythema noted and tenderness with palpation. area is soft. LABORATORY DATA: WBC is 10.7 Hgb 11.3 platelets 263 Sodium 139 potassium 3.7 creatinine 0.55 Lactic acid 0.6 IMAGING: CT scan abdomen pelvis mild circumferential bladder wall thickening. Status post Glenn-en-Y gastric bypass and cholecystectomy. Prominent mesenteric lymph nodes measuring up to 1.1 cm remain unchanged likely reactive/postinflammatory ASSESSMENT: 1. Recurrent epigastric abdominal pain with nausea and vomiting status post recent EGD with dilation at [facility] earlier in August 2. Prior history of sleeve gastrectomy converted to a Glenn-en-Y gastric bypass in May 2024 3. History of thiamine deficiency PLAN: -Continue clear liquid diet -Check thiamine level -Continue IV fluids -Continue antiemetics Physician Architectural Technologist note has been reviewed by physician. Signing provider agrees with the documented findings, assessment, and plan of care. Past Medical History Past Medical History: GERD/Reflux, Pulmonary Embolus (PE), Sleep Apnea/CPAP/BIPAP Additional Past Medical History / Comment(s): iron defiency anemia, currently getting iron infusions, no cpap used, pulmonary embolism 02/13/24 History of Any Multi-Drug Resistant Organisms: None Reported Past Surgical History: Bariatric Surgery, Section, Cholecystectomy, Tubal Ligation, Uterine Ablation Additional Past Surgical History / Comment(s): 2008 AND 2015 (c/s) and 2010 (cholecyst). 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 gastric bypass 06/11/24 Past Anesthesia/Blood Transfusion Reactions: No Reported Reaction Past Psychological History: Anxiety, Bipolar, Depression Smoking Status: Former smoker Past Alcohol Use History: None Reported Past Drug Use History: None Reported - Past Family History Mother Family Medical History: Asthma, COPD, Diabetes Mellitus, Hypertension Additional Family Medical History / Comment(s): depression, anxiety, sleep apnea, Father Family Medical History: Hypertension Additional Family Medical History / Comment(s): arthritis Medications and Allergies Home Medications Medication Instructions Recorded Confirmed Type Asenapine Maleate [Saphris] 10 mg SUBLINGUAL HS 07/12/24 09/07/24 History Budesonide/Formoterol Fumarate 2 puff INHALATION RT-BID 07/12/24 09/07/24 History [Symbicort 160-4.5 Mcg Inhaler] LORazepam [Ativan] 1 mg PO BID PRN 07/12/24 09/07/24 History QUEtiapine [SEROquel] 100 mg PO HS 07/12/24 09/07/24 History Tiotropium 2.5 Mcg/Puff [Spiriva 2 puff INHALATION RT-DAILY 07/12/24 09/07/24 History Respimat 2.5 Mcg] traZODone HCL [Desyrel] 100 mg PO HS 07/12/24 09/07/24 History Omeprazole [PriLOSEC] 40 mg PO BID 07/26/24 09/07/24 History Ondansetron [Zofran] 4 mg PO BID PRN 07/26/24 09/07/24 History Nicotine 21Mg/24Hr Patch [Habitrol] 1 patch TRANSDERM DAILY 09/07/24 09/07/24 History Sulfamethox-Tmp 800-160Mg [Bactrim 1 tab PO Q12HR 09/07/24 09/07/24 History Ds] oxyCODONE HCL [OxyIR] 5 mg PO Q12H 09/07/24 09/07/24 History Allergies Allergy/AdvReac Type Severity Reaction Status Date / Time latex Allergy Rash/Hives Verified 09/07/24 05:21 morphine AdvReac Itching Verified 09/07/24 05:21 Surgical - Exam Vital Signs Temp Pulse Resp BP Pulse Ox 97.9 F 109 H 20 114/80 99 09/07/24 05:18 09/07/24 05:18 09/07/24 05:18 09/07/24 05:18 09/07/24 05:18 Results - Labs 09/07/24 05:44 09/07/24 05:44 Abnormal Lab Results - Last 24 Hours (Table) 09/07/24 09/07/24 09/07/24 Range/Units 05:44 05:44 05:44 WBC 10.7 H (3.8-10.6) k/uL Hgb 11.3 L (11.4-16.0) gm/dL MCHC 30.6 L (31.0-37.0) g/dL RDW 17.1 H (11.5-15.5) % Neutrophils # 8.0 H (1.3-7.7) k/uL Chloride 109 H (98-107) mmol/L Carbon Dioxide 21 L (22-30) mmol/L Plasma Lactic Acid Case 0.6 L (0.7-2.0) mmol/L Total Protein 5.8 L (6.3-8.2) g/dL Albumin 3.2 L (3.5-5.0) g/dL Urine Appearance (Clear) Urine Protein (Negative) Urine Ketones (Negative) Urine Bilirubin (Negative) Urine WBC (0-5) /hpf Ur Squamous Epith Cells (0-4) /hpf Hyaline Casts (0-2) /lpf Urine Mucus (None) /hpf 09/07/24 Range/Units 05:59 WBC (3.8-10.6) k/uL Hgb (11.4-16.0) gm/dL MCHC (31.0-37.0) g/dL RDW (11.5-15.5) % Neutrophils # (1.3-7.7) k/uL Chloride (98-107) mmol/L Carbon Dioxide (22-30) mmol/L Plasma Lactic Acid Case (0.7-2.0) mmol/L Total Protein (6.3-8.2) g/dL Albumin (3.5-5.0) g/dL Urine Appearance Cloudy H (Clear) Urine Protein Trace H (Negative) Urine Ketones 2+ H (Negative) Urine Bilirubin 1+ H (Negative) Urine WBC 7 H (0-5) /hpf Ur Squamous Epith Cells 5 H (0-4) /hpf Hyaline Casts 12 H (0-2) /lpf Urine Mucus Many H (None) /hpf Diabetes panel 09/07/24 Range/Units 05:44 Sodium 139 (137-145) mmol/L Potassium 3.7 (3.5-5.1) mmol/L Chloride 109 H (98-107) mmol/L Carbon Dioxide 21 L (22-30) mmol/L BUN 7 (7-17) mg/dL Creatinine 0.55 (0.52-1.04) mg/dL Glucose 81 (74-99) mg/dL Calcium 9.5 (8.4-10.2) mg/dL AST 18 (14-36) U/L ALT 9 (4-34) U/L Alkaline Phosphatase 70 (38-126) U/L Total Protein 5.8 L (6.3-8.2) g/dL Albumin 3.2 L (3.5-5.0) g/dL Calcium panel 09/07/24 Range/Units 05:44 Calcium 9.5 (8.4-10.2) mg/dL Albumin 3.2 L (3.5-5.0) g/dL Pituitary panel 09/07/24 Range/Units 05:44 Sodium 139 (137-145) mmol/L Potassium 3.7 (3.5-5.1) mmol/L Chloride 109 H (98-107) mmol/L Carbon Dioxide 21 L (22-30) mmol/L BUN 7 (7-17) mg/dL Creatinine 0.55 (0.52-1.04) mg/dL Glucose 81 (74-99) mg/dL Calcium 9.5 (8.4-10.2) mg/dL Adrenal panel 09/07/24 Range/Units 05:44 Sodium 139 (137-145) mmol/L Potassium 3.7 (3.5-5.1) mmol/L Chloride 109 H (98-107) mmol/L Carbon Dioxide 21 L (22-30) mmol/L BUN 7 (7-17) mg/dL Creatinine 0.55 (0.52-1.04) mg/dL Glucose 81 (74-99) mg/dL Calcium 9.5 (8.4-10.2) mg/dL Total Bilirubin 0.7 (0.2-1.3) mg/dL AST 18 (14-36) U/L ALT 9 (4-34) U/L Alkaline Phosphatase 70 (38-126) U/L Total Protein 5.8 L (6.3-8.2) g/dL Albumin 3.2 L (3.5-5.0) g/dL
[2024-09-07] MEDS: HYDROmorphone 0.5 MG/0.5 ML SYRINGE IVP PRN (15:04)
[2024-09-07] MEDS: ONDANSETRON 4 MG/2 ML VIAL IVP PRN (18:00)
[2024-09-07] MEDS ORDERED: VANCOMYCIN IV PER PHARMACY 1 EACH MISC MISCELLANE PRN (21:06)
[2024-09-07] MEDS: traZODone HCL 100 MG TAB PO SCH (21:10)
[2024-09-07] MEDS: QUEtiapine 100 MG TAB PO SCH (21:12)
[2024-09-07] MEDS: SULFAMETHOX-TMP 800-160MG 1 EACH TAB PO SCH (21:38)
[2024-09-07] MEDS: VANCOMYCIN 1,500 MG in SODIUM CHLORIDE 0.9% 500 ML 500 ML IVPB ONE (21:39)
[2024-09-07] MEDS: LORazepam 1 MG TAB PO PRN (21:39)
--- NOTE | 2024-09-07 23:05 | P.CONS ---
History of Present Illness - Reason for Consult Consult date: 09/07/24 Axillary abscess, cystitis Requesting physician: Yariel Nuno - Chief Complaint Right axillary pain swelling redness x few days - History of Present Illness Patient is a 34-year-old -[place] female with a past medical history significant for PE reflux sleep apnea did have a recent admission to the hospital with left axillary abscess status post drainage culture were negative treated with oral antibiotics now presenting to the hospital for evaluation of right axillary pain and swelling that apparently has been getting worse over the last few days patient denies pain to be sharp throbbing moderate intensity without any radiation with associated swelling that has progressively get worse patient denies high-grade fever on presentation to the hospital the patient was afebrile he was tachycardic but not hypotensive or hypoxic did have white count 10.7 with a left shift creatinine 0.55 patient has been eval by ER physician did have bedside drainage of the abscess culture has been obtained which are currently showing gram-positive cocci patient has been treated with Bactrim DS infectious disease was consulted for further management of antibiotic therapy patient did have CT abdominal pelvis concerning for possible bladder wall thickening correlate to exclude cystitis though her UA was not significantly positive Review of Systems Positive point and negatives has been mentioned in the HPI, complete review of systems was performed and all other systems are negative Past Medical History Past Medical History: GERD/Reflux, Pulmonary Embolus (PE), Sleep Apnea/CPAP/BIPAP Additional Past Medical History / Comment(s): iron defiency anemia, currently getting iron infusions, no cpap used, pulmonary embolism 02/13/24 History of Any Multi-Drug Resistant Organisms: None Reported Past Surgical History: Bariatric Surgery, Section, Cholecystectomy, Tubal Ligation, Uterine Ablation Additional Past Surgical History / Comment(s): 2008 AND 2015 (c/s) and 2010 (cholecyst). 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 gastric bypass 06/11/24 Past Anesthesia/Blood Transfusion Reactions: No Reported Reaction Past Psychological History: Anxiety, Bipolar, Depression Smoking Status: Former smoker Past Alcohol Use History: None Reported Past Drug Use History: None Reported - Past Family History Mother Family Medical History: Asthma, COPD, Diabetes Mellitus, Hypertension Additional Family Medical History / Comment(s): depression, anxiety, sleep apnea, Father Family Medical History: Hypertension Additional Family Medical History / Comment(s): arthritis Medications and Allergies Home Medications Medication Instructions Recorded Confirmed Type Asenapine Maleate [Saphris] 10 mg SUBLINGUAL HS 07/12/24 09/07/24 History Budesonide/Formoterol Fumarate 2 puff INHALATION RT-BID 07/12/24 09/07/24 History [Symbicort 160-4.5 Mcg Inhaler] LORazepam [Ativan] 1 mg PO BID PRN 07/12/24 09/07/24 History QUEtiapine [SEROquel] 100 mg PO HS 07/12/24 09/07/24 History Tiotropium 2.5 Mcg/Puff [Spiriva 2 puff INHALATION RT-DAILY 07/12/24 09/07/24 History Respimat 2.5 Mcg] traZODone HCL [Desyrel] 100 mg PO HS 07/12/24 09/07/24 History Omeprazole [PriLOSEC] 40 mg PO BID 07/26/24 09/07/24 History Ondansetron [Zofran] 4 mg PO BID PRN 07/26/24 09/07/24 History Nicotine 21Mg/24Hr Patch [Habitrol] 1 patch TRANSDERM DAILY 09/07/24 09/07/24 History Sulfamethox-Tmp 800-160Mg [Bactrim 1 tab PO Q12HR 09/07/24 09/07/24 History Ds] oxyCODONE HCL [OxyIR] 5 mg PO Q12H 09/07/24 09/07/24 History Allergies Allergy/AdvReac Type Severity Reaction Status Date / Time latex Allergy Rash/Hives Verified 09/07/24 05:21 morphine AdvReac Itching Verified 09/07/24 05:21 Physical Exam Vitals: Vital Signs Temp Pulse Resp BP Pulse Ox 09/07/24 10:10 90 20 126/85 100 09/07/24 06:46 84 16 126/81 97 09/07/24 05:18 97.9 F 109 H 20 114/80 99 Intake and Output 09/06/24 09/07/24 09/07/24 22:59 06:59 14:59 Other: Weight 78.471 kg GENERAL DESCRIPTION: Middle-aged female lying in bed, no distress. No tachypnea or accessory muscle of respiration use. HEENT: Shows Pallor , no scleral icterus. Oral mucous membrane is dry. NECK: Trachea central, no thyromegaly. LUNGS: Unlabored breathing. Clear to auscultation anteriorly. No wheeze or crackle. HEART: S1, S2, regular rate and rhythm. No loud murmur ABDOMEN: Soft, no tenderness , guarding or rigidity, no organomegaly EXTREMITIES: Right axillary area to have wound post drainage of the abscess with minimal induration SKIN: No rash, no masses palpable. NEUROLOGICAL: The patient is awake, alert, oriented x3, mood and affect normal. Results CBC & Chem 7: 09/07/24 05:44 09/07/24 05:44 Labs: Abnormal Lab Results - Last 24 Hours (Table) 09/07/24 09/07/24 09/07/24 Range/Units 05:44 05:44 05:44 WBC 10.7 H (3.8-10.6) k/uL Hgb 11.3 L (11.4-16.0) gm/dL MCHC 30.6 L (31.0-37.0) g/dL RDW 17.1 H (11.5-15.5) % Neutrophils # 8.0 H (1.3-7.7) k/uL Chloride 109 H (98-107) mmol/L Carbon Dioxide 21 L (22-30) mmol/L Plasma Lactic Acid Case 0.6 L (0.7-2.0) mmol/L Total Protein 5.8 L (6.3-8.2) g/dL Albumin 3.2 L (3.5-5.0) g/dL Urine Appearance (Clear) Urine Protein (Negative) Urine Ketones (Negative) Urine Bilirubin (Negative) Urine WBC (0-5) /hpf Ur Squamous Epith Cells (0-4) /hpf Hyaline Casts (0-2) /lpf Urine Mucus (None) /hpf 09/07/24 Range/Units 05:59 WBC (3.8-10.6) k/uL Hgb (11.4-16.0) gm/dL MCHC (31.0-37.0) g/dL RDW (11.5-15.5) % Neutrophils # (1.3-7.7) k/uL Chloride (98-107) mmol/L Carbon Dioxide (22-30) mmol/L Plasma Lactic Acid Case (0.7-2.0) mmol/L Total Protein (6.3-8.2) g/dL Albumin (3.5-5.0) g/dL Urine Appearance Cloudy H (Clear) Urine Protein Trace H (Negative) Urine Ketones 2+ H (Negative) Urine Bilirubin 1+ H (Negative) Urine WBC 7 H (0-5) /hpf Ur Squamous Epith Cells 5 H (0-4) /hpf Hyaline Casts 12 H (0-2) /lpf Urine Mucus Many H (None) /hpf Assessment and Plan (1) Cystitis Current Visit: Yes Status: Acute Code(s): N30.90 - CYSTITIS, UNSPECIFIED WITHOUT HEMATURIA SNOMED Code(s): 35312752 (2) Abscess of right axilla Current Visit: Yes Status: Acute Code(s): L02.411 - CUTANEOUS ABSCESS OF RIGHT AXILLA SNOMED Code(s): 13482619 Plan: 1patient presented to hospital with right axillary area pain swelling redness has been diagnosed with an abscess status post drainage in the ER with a Gram stain showing gram-positive cocci high clinical suspicious for MRSA 2patient did have a significant abnormality on the CT concerning for cystitis but UA not significantly positive or any significant urinary symptoms 3-discontinue Bactrim DS 4-we will start the patient on vancomycin pharmacy to dose target trough of 15 while watching kidney function and Vanco trough closely We will follow on clinical condition and cultures to further adjust medication if needed Thank you for this consultation we will follow the patient along with you Dictation was produced using [employer] dictation software. please excuse any grammatical, word or spelling errors. Time with Patient: Greater than 30
[2024-09-08] MEDS: PANTOPRAZOLE 40 MG TABLET PO SCH (06:16)
[2024-09-08] MEDS: VANCOMYCIN 1,250 MG in SODIUM CHLORIDE 0.9% 250 ML IVPB SCH (06:20)
[2024-09-08 06:41] LABS: Anisocytosis Slight; Basophils % (A) 0 %; Eosinophils # (A) 0.3 k/uL (0-0.7); Eosinophils % (A) 3 %; HCT 32.4 % (34.0-46.0); HGB 10.1 gm/dL (11.4-16.0); Hypochromasia Marked; Lymphocytes # (A) 1.9 k/uL (1.0-4.8); Lymphocytes % (A) 26 %; MCH 29.5 pg (25.0-35.0); MCV 95.2 fL (80.0-100.0); Mean Platelet Volume 10.1; Monocytes # (A) 0.5 k/uL (0-1.0); Monocytes % (A) 6 %; Neutrophils # (A) 4.7 k/uL (1.3-7.7); Neutrophils % (A) 63 %; Platelet Count 246 k/uL (150-450); RBC 3.41 m/uL (3.80-5.40); RDW 17.5 % (11.5-15.5); WBC 7.5 k/uL (3.8-10.6)
--- NOTE | 2024-09-08 09:01 | P.PN ---
Subjective Progress Note Date: 09/08/24 Principal diagnosis: Abdominal pain nausea and vomiting, history of strick sleeve followed by gastric bypass, and revision consult general surgery Eccentric lymphadenopathy, likely reactive, consult general surgery Right axillary abscess, patient will need IV antibiotics will consult infectious disease Urinary tract infection Morbid obesity Major depression Likely sleep disordered breathing and sleep apnea September 08, 2024, patient seen eval examined during rounds labs reviewed medications reviewed ongoing nausea is present ID service and general surgery has evaluated the patient, currently she is on pain control as well anxiety control, she has been initiated on IV vancomycin, review of records revealed that patient is status post EGD with dilatation at [facility] early in August with prior history of sleeve gastrectomy converted to Glenn-en-Y gastric bypass May 2024 labs reviewed, white cell count improved to 7.5, hemoglobin 10/32. Goal of 4-46 urine analysis is significant for ketones being positive in the urine Patient seen evaluate examined while covering for Dr. Justin Molina patient history of gastric sleeve then revision at [facility], for the last 2 days patient having pain in the epigastric region with intermittent episodes of vomiting however no hematemesis, patient took [id number] medicine without any significant relief came into the hospital for further evaluation last night was seen was discharged but the problem was persistent came back to hospital in addition patient has axilla abscess on the right side and has been on Bactrim will consult infectious disease and surgery. Labs include WBC 10.7 hemoglobin hematocrit is 11/37 platelet count 263, chemistry significant for BUN/creatinine 7/1.55 rest of the LFTs within normal limit potassium 3.7 urine is cloudy negative for leukocyte esterase or nitrite currently patient is on IV fluids pain control and Zofran, per patient IV antibiotics works better compared to p.o. as in the past Other active medical problem including COPD asthma, generalized anxiety disorder, major depression, GERD, morbid obesity history of prior abscess formation Objective - Vital Signs Vital signs: Vital Signs Temp 98.2 F 09/08/24 07:00 Pulse 90 09/08/24 07:00 Resp 14 09/08/24 07:00 BP 107/70 09/08/24 07:00 Pulse Ox 98 09/08/24 07:00 FiO2 Intake & Output 09/07/24 09/08/24 09/08/24 18:59 06:59 18:59 Weight 78.471 kg Other: # Voids 1 2 - Exam - Constitutional General appearance: mild distress, morbidly obese - EENT Eyes: PERRLA, poor dentition ENT: normal oropharynx Ears: bilateral: normal - Neck Neck: normal ROM Carotids: bilateral: upstroke normal Thyroid: bilateral: normal size - Respiratory Respiratory: bilateral: CTA - Cardiovascular Rhythm: regular Heart sounds: normal: S1, S2 - Gastrointestinal General gastrointestinal: normal bowel sounds, soft - Integumentary Integumentary: normal turgor - Neurologic Neurologic: CNII-XII intact - Musculoskeletal Musculoskeletal: gait normal, generalized weakness, strength equal bilaterally - Psychiatric Psychiatric: A&O x's 3, appropriate affect, intact judgment & insight - Labs CBC & Chem 7: 09/08/24 05:20 09/07/24 05:44 Labs: Abnormal Lab Results - Last 24 Hours (Table) 09/08/24 Range/Units 05:20 RBC 3.41 L (3.80-5.40) m/uL Hgb 10.1 L (11.4-16.0) gm/dL Hct 32.4 L (34.0-46.0) % RDW 17.5 H (11.5-15.5) % Microbiology - Last 24 Hours (Table) 09/07/24 07:26 Gram Stain - Preliminary Axilla - Right Assessment and Plan Assessment: Abdominal pain nausea and vomiting, history of strick sleeve followed by gastric bypass, and revision general surgery following Eccentric lymphadenopathy, likely reactive, Right axillary abscess, patient will need IV antibiotics will consult infectious disease Urinary tract infection Morbid obesity Major depression Likely sleep disordered breathing and sleep apnea Plan: N.p.o. except meds diet to be advanced as per recommendation of the general surgery service Gentle rehydration with IV fluids Pain medicine Continue antidepressant Reviewed recommendation from infectious disease as well as general surgery on IV vancomycin Patient will likely need periodic evaluation with CT scan due to lymphadenopathy Time with Patient: Greater than 30
[2024-09-08 10:21] LABS: ALT 7 U/L (8-44); AST 15 U/L (13-35); Albumin 2.8 g/dL (3.8-4.9); Alkaline Phosphatase 57 U/L (41-126); BUN/Creat Ratio <8.75 Ratio (12.00-20.00); Blood Urea Nitrogen <3.5 mg/dL (9.0-27.0); Calcium 8.4 mg/dL (8.7-10.3); Carbon Dioxide 21.1 mmol/L (21.6-31.8); Chloride 108 mmol/L (96-109); Glucose 67 mg/dL (70-110); Potassium 3.7 mmol/L (3.5-5.5); Sodium 140 mmol/L (135-145); Total Bilirubin <0.2 mg/dL (0.3-1.2); Total Protein 4.8 g/dL (6.2-8.2)
--- NOTE | 2024-09-08 10:48 | P.PN ---
Subjective Progress Note Date: 09/08/24 Principal diagnosis: Intractable vomiting Patient says she feels okay today. She says that after she had a EGD with dilation at [facility] she had improvement in her symptoms. She was told to follow-up with them if her symptoms recurred for repeat dilation however patient states she cannot manage the transportation there. No nausea or vomiting on clears currently. Objective - Vital Signs Vital signs: Vital Signs Temp 98.2 F 09/08/24 07:00 Pulse 90 09/08/24 09:43 Resp 14 09/08/24 09:43 BP 107/70 09/08/24 07:00 Pulse Ox 98 09/08/24 07:00 FiO2 Intake & Output 09/07/24 09/08/24 09/08/24 18:59 06:59 18:59 Weight 78.471 kg Other: # Voids 1 2 - Exam Abdomen: Soft, nontender, nondistended - Labs CBC & Chem 7: 09/08/24 05:20 09/08/24 05:20 Labs: Abnormal Lab Results - Last 24 Hours (Table) 09/08/24 09/08/24 Range/Units 05:20 05:20 RBC 3.41 L (3.80-5.40) m/uL Hgb 10.1 L (11.4-16.0) gm/dL Hct 32.4 L (34.0-46.0) % RDW 17.5 H (11.5-15.5) % Carbon Dioxide 21.1 L (21.6-31.8) mmol/L BUN <3.5 L (9.0-27.0) mg/dL Creatinine 0.4 L (0.6-1.5) mg/dL BUN/Creatinine Ratio <8.75 L (12.00-20.00) Ratio Glucose 67 L (70-110) mg/dL Calcium 8.4 L (8.7-10.3) mg/dL Total Bilirubin <0.2 L (0.3-1.2) mg/dL ALT 7 L (8-44) U/L Total Protein 4.8 L (6.2-8.2) g/dL Albumin 2.8 L (3.8-4.9) g/dL Albumin/Globulin Ratio 1.40 L (1.60-3.17) Ratio Microbiology - Last 24 Hours (Table) 09/07/24 07:26 Gram Stain - Preliminary Axilla - Right Assessment and Plan (1) Intractable nausea and vomiting Narrative/Plan: Patient doing better today. Advance to full liquids. If symptoms of nausea and vomiting persist or recur may require EGD with dilation here. Current Visit: Yes Status: Acute Code(s): R11.2 - NAUSEA WITH VOMITING, UNSPECIFIED SNOMED Code(s): 235998726
--- NOTE | 2024-09-08 16:03 | P.PN ---
Subjective Progress Note Date: 09/08/24 Principal diagnosis: Reason for follow-up is right axillary abscess Patient is a 34-year-old -[place] female with a past medical history significant for PE reflux sleep apnea presenting the hospital with right axillary pain and swelling concerning for abscess. Status post drainage in the ER. On today's evaluation that is 09/08/2024, patient did not have any fever and denies any chills, patient is breathing comfortably on room air, patient with no chest pain or cough patient did not have any abdominal pain nausea vomiting or any loose stools, pain to the right axilla has decreased in intensity. Patient white count 7.5 creatinine 0.4 cultures currently pending patient Objective - Vital Signs Vital signs: Vital Signs Temp 98.3 F 09/08/24 14:59 Pulse 82 09/08/24 14:59 Resp 14 09/08/24 14:59 BP 111/72 09/08/24 14:59 Pulse Ox 98 09/08/24 14:59 FiO2 Intake & Output 09/07/24 09/08/24 09/08/24 18:59 06:59 18:59 Intake Total 100 Balance 100 Weight 78.471 kg Intake: Oral 100 Other: # Voids 1 2 - Exam Middle-age erly female up in the bed in no distress No tachypnea or accessory muscle respiration use Unlabored breathing Patient is awake alert oriented x 3 Right axillary dressing intact - Labs CBC & Chem 7: 09/08/24 05:20 09/08/24 05:20 Labs: Abnormal Lab Results - Last 24 Hours (Table) 09/08/24 09/08/24 Range/Units 05:20 05:20 RBC 3.41 L (3.80-5.40) m/uL Hgb 10.1 L (11.4-16.0) gm/dL Hct 32.4 L (34.0-46.0) % RDW 17.5 H (11.5-15.5) % Carbon Dioxide 21.1 L (21.6-31.8) mmol/L BUN <3.5 L (9.0-27.0) mg/dL Creatinine 0.4 L (0.6-1.5) mg/dL BUN/Creatinine Ratio <8.75 L (12.00-20.00) Ratio Glucose 67 L (70-110) mg/dL Calcium 8.4 L (8.7-10.3) mg/dL Total Bilirubin <0.2 L (0.3-1.2) mg/dL ALT 7 L (8-44) U/L Total Protein 4.8 L (6.2-8.2) g/dL Albumin 2.8 L (3.8-4.9) g/dL Albumin/Globulin Ratio 1.40 L (1.60-3.17) Ratio Microbiology - Last 24 Hours (Table) 09/07/24 07:26 Gram Stain - Preliminary Axilla - Right Wound Culture - Preliminary Assessment and Plan (1) Cystitis Current Visit: Yes Status: Acute Code(s): N30.90 - CYSTITIS, UNSPECIFIED WITHOUT HEMATURIA SNOMED Code(s): 76259840 (2) Abscess of right axilla Current Visit: Yes Status: Acute Code(s): L02.411 - CUTANEOUS ABSCESS OF RIGHT AXILLA SNOMED Code(s): 20893660 Plan: 1patient presented to hospital with right axillary area pain swelling redness has been diagnosed with an abscess status post drainage in the ER with a Gram stain showing gram-positive cocci high clinical suspicious for MRSA 2patient did have a significant abnormality on the CT concerning for cystitis but UA not significantly positive or any significant urinary symptoms 3-patient to continue with vancomycin pharmacy to dose target trough of 15 while waiting for the culture to finalize Dictation was produced using [employer] dictation software. please excuse any grammatical, word or spelling errors. Time with Patient: Less than 30
[2024-09-08] MEDS: NICOTINE 14MG/24HR PATCH TRANSDERM SCH (17:03)
[2024-09-09 09:54] LABS: Basophils # (A) 0.04 X 10*3/uL (0.00-0.10); Basophils % (A) 0.6 %; Eosinophils # (A) 0.23 X 10*3/uL (0.04-0.35); Eosinophils % (A) 3.5 %; HGB 9.6 g/dL (12.0-15.0); Lymphocytes # (A) 2.17 X 10*3/uL (0.90-5.00); MCH 28.2 pg (27.0-32.0); MCV 90.9 FL (80.0-97.0); Mean Platelet Volume 12.3 FL (9.5-12.2); Monocytes # (A) 0.51 X 10*3/uL (0.20-1.00); Monocytes % (A) 7.8 %; NRBC Per 100 WBC 0 X 10*3/uL (0.00-0.01); Neutrophils # (A) 3.61 X 10*3/uL (1.80-7.70); Neutrophils % (A) 54.8 %; Platelet Count 239 X 10*3/uL (140-440); RBC 3.41 X 10*6/uL (4.10-5.20); RDW 18.6 % (11.5-14.5); WBC 6.58 X 10*3/uL (4.50-10.00)
[2024-09-09 10:02] LABS: ALT 8 U/L (8-44); AST 15 U/L (13-35); Albumin 2.7 g/dL (3.8-4.9); Albumin/Globulin Ratio 1.42 Ratio (1.60-3.17); Alkaline Phosphatase 52 U/L (41-126); BUN/Creat Ratio <8.75 Ratio (12.00-20.00); Blood Urea Nitrogen <3.5 mg/dL (9.0-27.0); Calcium 8.2 mg/dL (8.7-10.3); Carbon Dioxide 22.2 mmol/L (21.6-31.8); Chloride 111 mmol/L (96-109); Globulin 1.9 g/dL (1.6-3.3); Glucose 77 mg/dL (70-110); Potassium 3.6 mmol/L (3.5-5.5); Sodium 141 mmol/L (135-145); Total Bilirubin <0.2 mg/dL (0.3-1.2); Total Protein 4.6 g/dL (6.2-8.2)
--- NOTE | 2024-09-09 10:07 | P.PN ---
Subjective Progress Note Date: 09/09/24 Principal diagnosis: Intractable vomiting Patient says she feels about the same. Had episodes of vomiting last night. Some nausea today. Mild pain. Objective - Vital Signs Vital signs: Vital Signs Temp 98.2 F 09/09/24 07:00 Pulse 93 09/09/24 07:00 Resp 16 09/09/24 07:00 BP 112/74 09/09/24 07:00 Pulse Ox 96 09/09/24 07:00 FiO2 Intake & Output 09/08/24 09/09/24 09/09/24 18:59 06:59 18:59 Intake Total 100 Balance 100 Intake: Oral 100 Other: # Voids 1 # Bowel Movements 1 - Exam Abdomen: Soft, nontender, nondistended - Labs CBC & Chem 7: 09/09/24 06:12 09/09/24 06:12 Labs: Abnormal Lab Results - Last 24 Hours (Table) 09/08/24 09/09/24 09/09/24 Range/Units 05:20 06:12 06:12 RBC 3.41 L (4.10-5.20) X 10*6/uL Hgb 9.6 L (12.0-15.0) g/dL Hct 31.0 L (37.2-46.3) % MCHC 31.0 L (32.0-37.0) g/dL RDW 18.6 H (11.5-14.5) % MPV 12.3 H (9.5-12.2) FL Chloride 111 H (96-109) mmol/L Carbon Dioxide 21.1 L (21.6-31.8) mmol/L BUN <3.5 L <3.5 L (9.0-27.0) mg/dL Creatinine 0.4 L 0.4 L (0.6-1.5) mg/dL BUN/Creatinine Ratio <8.75 L <8.75 L (12.00-20.00) Ratio Glucose 67 L (70-110) mg/dL Calcium 8.4 L 8.2 L (8.7-10.3) mg/dL Total Bilirubin <0.2 L <0.2 L (0.3-1.2) mg/dL ALT 7 L (8-44) U/L Total Protein 4.8 L 4.6 L (6.2-8.2) g/dL Albumin 2.8 L 2.7 L (3.8-4.9) g/dL Albumin/Globulin Ratio 1.40 L 1.42 L (1.60-3.17) Ratio Microbiology - Last 24 Hours (Table) 09/07/24 07:26 Gram Stain - Preliminary Axilla - Right Wound Culture - Preliminary Assessment and Plan (1) Intractable nausea and vomiting Narrative/Plan: 34-year-old female with recurrent abdominal pain nausea and vomiting. Possibly related to anastomotic stricture. Will allow Dr. Liu to evaluate tomorrow for possible EGD with dilation. Current Visit: Yes Status: Acute Code(s): R11.2 - NAUSEA WITH VOMITING, UNSPECIFIED SNOMED Code(s): 955002762
--- NOTE | 2024-09-09 11:47 | P.PN ---
Subjective Progress Note Date: 09/09/24 Principal diagnosis: Abdominal pain nausea and vomiting, history of strick sleeve followed by gastric bypass, and revision consult general surgery Eccentric lymphadenopathy, likely reactive, consult general surgery Right axillary abscess, patient will need IV antibiotics will consult infectious disease Urinary tract infection Morbid obesity Major depression Likely sleep disordered breathing and sleep apnea September 09, 2024, patient seen eval examined during rounds labs reviewed medications reviewed, still have pain in the right lower extremity awaiting neurology. Infectious disease has evaluated the patient and general surgery evaluated the patient as well, remains on IV antibiotics tolerating very well, swelling in the right axilla slightly improved now. She remains afebrile, hemodynamic status stable saturation is 96% on room air patient remains on Dilaudid for pain control along with Ativan for anxiety, remains on vancomycin pharmacy is following peak and troughs. Patient is a ex-smoker due to desire for smoking has been on nicotine patch also have been getting Zofran as needed has been on Protonix 2 times a day continued on gentle rehydration however home antidepressant. Wound culture is positive for gram-positive cocci along with many WBCs on Gram stain final cultures pending. General surgery is planning to do endoscopy and dilatation tomorrow September 08, 2024, patient seen eval examined during rounds labs reviewed medications reviewed ongoing nausea is present ID service and general surgery has evaluated the patient, currently she is on pain control as well anxiety control, she has been initiated on IV vancomycin, review of records revealed that patient is status post EGD with dilatation at [facility] early in August with prior history of sleeve gastrectomy converted to Glenn-en-Y gastric bypass May 2024 labs reviewed, white cell count improved to 7.5, hemoglobin 10/32. Goal of 4-46 urine analysis is significant for ketones being positive in the urine Patient seen evaluate examined while covering for Dr. Justin Molina patient history of gastric sleeve then revision at [facility], for the last 2 d ays patient having pain in the epigastric region with intermittent episodes of vomiting however no hematemesis, patient took udbj-[id number] medicine without any significant relief came into the hospital for further evaluation last night was seen was discharged but the problem was persistent came back to hospital in addition patient has axilla abscess on the right side and has been on Bactrim will consult infectious disease and surgery. Labs include WBC 10.7 hemoglobin hematocrit is 11/37 platelet count 263, chemistry significant for BUN/creatinine 7/1.55 rest of the LFTs within normal limit potassium 3.7 urine is cloudy negative for leukocyte esterase or nitrite currently patient is on IV fluids pain control and Zofran, per patient IV antibiotics works better compared to p.o. as in the past Other active medical problem including COPD asthma, generalized anxiety disorder, major depression, GERD, morbid obesity history of prior abscess formation Objective - Vital Signs Vital signs: Vital Signs Temp 98.2 F 09/09/24 07:00 Pulse 93 09/09/24 07:00 Resp 16 09/09/24 07:00 BP 112/74 09/09/24 07:00 Pulse Ox 96 09/09/24 07:00 FiO2 Intake & Output 09/08/24 09/09/24 09/09/24 18:59 06:59 18:59 Intake Total 100 Balance 100 Intake: Oral 100 Other: # Voids 1 # Bowel Movements 1 - Exam - Constitutional General appearance: mild distress, morbidly obese - EENT Eyes: PERRLA, poor dentition ENT: normal oropharynx Ears: bilateral: normal - Neck Neck: normal ROM Carotids: bilateral: upstroke normal Thyroid: bilateral: normal size - Respiratory Respiratory: bilateral: CTA - Cardiovascular Rhythm: regular Heart sounds: normal: S1, S2 - Gastrointestinal General gastrointestinal: normal bowel sounds, soft - Integumentary Integumentary: normal turgor - Neurologic Neurologic: CNII-XII intact - Musculoskeletal Musculoskeletal: gait normal, generalized weakness, strength equal bilaterally - Psychiatric Psychiatric: A&O x's 3, appropriate affect, intact judgment & insight - Labs CBC & Chem 7: 09/09/24 06:12 09/09/24 06:12 Labs: Abnormal Lab Results - Last 24 Hours (Table) 09/09/24 09/09/24 Range/Units 06:12 06:12 RBC 3.41 L (4.10-5.20) X 10*6/uL Hgb 9.6 L (12.0-15.0) g/dL Hct 31.0 L (37.2-46.3) % MCHC 31.0 L (32.0-37.0) g/dL RDW 18.6 H (11.5-14.5) % MPV 12.3 H (9.5-12.2) FL Chloride 111 H (96-109) mmol/L BUN <3.5 L (9.0-27.0) mg/dL Creatinine 0.4 L (0.6-1.5) mg/dL BUN/Creatinine Ratio <8.75 L (12.00-20.00) Ratio Calcium 8.2 L (8.7-10.3) mg/dL Total Bilirubin <0.2 L (0.3-1.2) mg/dL Total Protein 4.6 L (6.2-8.2) g/dL Albumin 2.7 L (3.8-4.9) g/dL Albumin/Globulin Ratio 1.42 L (1.60-3.17) Ratio Microbiology - Last 24 Hours (Table) 09/07/24 07:26 Gram Stain - Preliminary Axilla - Right Wound Culture - Preliminary Assessment and Plan Assessment: Abdominal pain nausea and vomiting, history of strick sleeve followed by gastric bypass, and revision general surgery following, pain and nausea improved continue supportive care advance diet as tolerated as per recommendation of general surgery Eccentric lymphadenopathy, likely reactive,, follow-up as outpatient with pe riodic radiographic imaging Right axillary abscess, related to gram-positive cocci, patient to be continued on IV vancomycin, follow-up on final ID Morbid obesity Major depression Likely sleep disordered breathing and sleep apnea Plan: Patient to continue diet to be advanced as per recommendation of the general surgery service Patient being planned for dilatation tomorrow Gentle rehydration with IV fluids Pain medicine Continue antidepressant Reviewed recommendation from infectious disease as well as general surgery on IV vancomycin Patient will likely need periodic evaluation with CT scan due to lymphadenopathy
[2024-09-09] MEDS: VANCOMYCIN TROUGH DUE 1 EACH MISC MISCELLANE ONE (13:26)
--- NOTE | 2024-09-09 13:35 | P.PN ---
Subjective Progress Note Date: 09/09/24 Principal diagnosis: Reason for follow-up is right axillary abscess Patient is a 34-year-old -Citizen Of [place] female with a past medical history significant for PE reflux sleep apnea presenting the hospital with right axillary pain and swelling concerning for abscess. Status post drainage in the ER. On today's evaluation that is 09/09/2024, Patient is afebrile patient is curr ently on room air and denies having any shortness of breath, the patient denies any chest pain or cough, the patient denies any nausea vomiting did not have any abdominal pain and no diarrhea, the patient pain to the right axilla slightly decreased still having some drainage. Patient white count 6.58, creatinine 0.4 Vanco trough is 25.3 cultures are currently pending Objective - Vital Signs Vital signs: Vital Signs Temp 98.2 F 09/09/24 07:00 Pulse 93 09/09/24 07:00 Resp 16 09/09/24 07:00 BP 112/74 09/09/24 07:00 Pulse Ox 96 09/09/24 07:00 FiO2 Intake & Output 09/08/24 09/09/24 09/09/24 18:59 06:59 18:59 Intake Total 100 Balance 100 Intake: Oral 100 Other: # Voids 1 # Bowel Movements 1 - Exam Middle-age erly female up in the bed in no distress No tachypnea or accessory muscle respiration use Unlabored breathing, clear to auscultation anteriorly Patient is awake alert oriented x 3 Right axillary dressing intact minimal induration - Labs CBC & Chem 7: 09/09/24 06:12 09/09/24 06:12 Labs: Abnormal Lab Results - Last 24 Hours (Table) 09/09/24 09/09/24 Range/Units 06:12 06:12 RBC 3.41 L (4.10-5.20) X 10*6/uL Hgb 9.6 L (12.0-15.0) g/dL Hct 31.0 L (37.2-46.3) % MCHC 31.0 L (32.0-37.0) g/dL RDW 18.6 H (11.5-14.5) % MPV 12.3 H (9.5-12.2) FL Chloride 111 H (96-109) mmol/L BUN <3.5 L (9.0-27.0) mg/dL Creatinine 0.4 L (0.6-1.5) mg/dL BUN/Creatinine Ratio <8.75 L (12.00-20.00) Ratio Calcium 8.2 L (8.7-10.3) mg/dL Total Bilirubin <0.2 L (0.3-1.2) mg/dL Total Protein 4.6 L (6.2-8.2) g/dL Albumin 2.7 L (3.8-4.9) g/dL Albumin/Globulin Ratio 1.42 L (1.60-3.17) Ratio Microbiology - Last 24 Hours (Table) 09/07/24 07:26 Gram Stain - Preliminary Axilla - Right Wound Culture - Preliminary Assessment and Plan (1) Cystitis Current Visit: Yes Status: Acute Code(s): N30.90 - CYSTITIS, UNSPECIFIED WITHOUT HEMATURIA SNOMED Code(s): 17795836 (2) Abscess of right axilla Current Visit: Yes Status: Acute Code(s): L02.411 - CUTANEOUS ABSCESS OF RIGHT AXILLA SNOMED Code(s): 51137254 Plan: 1patient presented to hospital with right axillary area pain swelling redness has been diagnosed with an abscess status post drainage in the ER with a Gram stain showing gram-positive cocci high clinical suspicious for MRSA 2patient did have a significant abnormality on the CT concerning for cystitis but UA not significantly positive or any significant urinary symptoms 3-patient to continue with vancomycin pharmacy to dose however dosing to be adjusted to keep the trough around 15 monitor kidney function closely cultures are currently pending. Question concern answered Dictation was produced using [employer] dictation software. please excuse any grammatical, word or spelling errors. Time with Patient: Less than 30
[2024-09-09] MEDS: FOLIC ACID 1 MG TAB PO SCH (21:17)
[2024-09-09] MEDS: THIAMINE 100 MG TAB PO SCH (21:18)
--- NOTE | 2024-09-09 21:34 | P.CNNES ---
History of Present Illness Consult date: 09/09/24 Requesting physician: Yariel Nuno Reason for Consult: Right leg pain History of Present Illness: Patient is a 34-year-old female came to the hospital yesterday at 5:05 AM for nausea vomiting and diarrhea. Neurology consulted for neuropathic pains in the legs. Patient states that she had undergone sleeve surgery on 12/20/2023, and then underwent for bypass surgery on 06/11/2024. She has lost over 100 pounds, as she used to weigh 288 pounds, and now down to 173 pounds. She also has complications from the surgery, not able to eat anything with a lot of nausea and vomiting. Patient states that about 2-1/2 to 3 months ago, she started having numbness on the sides of the legs and calves. Then she started having shooting aching pain in the same region. Subsequently she developed pain in the feet. Symptoms starts from the feet and goes all the way up to the groin bilaterally. She has some aching in the hands but no pain. Both legs are now hurting and numb. She feels like walking on hot cold. Pain shoots in the legs. Denies any lower back pain. For the last couple of months, she has moments of off balance, but not consistent. She had fell a couple times in the last couple months. Her legs feels weak, sometimes feels cannot hold her body up. She tires easily. Patient denies any problem with bowel or bladder control. Patient denies diabetes, no alcohol use or hypertension. She has smoked half pack per day for 18 years, cut back to 2 cigarettes/day since February 2024. Vital signs on arrival blood pressure 114/80, pulse rate 109, temperature 97.9. Blood test shows WBC 10.7 with hemoglobin of 11.3, platelets are normal. CMP is normal. UA negative. CT abdomen pelvis revealed mild circumferential bladder wall thickening, correlate to exclude cystitis. Previous cul-de-sac free fluid likely physiologic. Status post gastric bypass surgery. Prominent mesenteric lymph nodes measuring up to 1.1 cm remain unchanged. Likely reactive/postinflammatory. Patient has been seen by Dr. Sung on 02/14/2024 for metabolic encephalopathy. Review of Systems All pertinent positive and negative review of systems mentioned in HPI. Past Medical History Past Medical History: GERD/Reflux, Pulmonary Embolus (PE), Sleep Apnea/CPAP/BIPAP Additional Past Medical History / Comment(s): iron defiency anemia, currently getting iron infusions, no cpap used, pulmonary embolism 02/13/24 History of Any Multi-Drug Resistant Organisms: None Reported Past Surgical History: Bariatric Surgery, Section, Cholecystectomy, Tubal Ligation, Uterine Ablation Additional Past Surgical History / Comment(s): 2008 AND 2015 (c/s) and 2010 (cholecyst). 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 gastric bypass 06/11/24 Past Anesthesia/Blood Transfusion Reactions: No Reported Reaction Past Psychological History: Anxiety, Bipolar, Depression Smoking Status: Former smoker Past Alcohol Use History: None Reported Past Drug Use History: None Reported - Past Family History Mother Family Medical History: Asthma, COPD, Diabetes Mellitus, Hypertension Additional Family Medical History / Comment(s): depression, anxiety, sleep apnea, Father Family Medical History: Hypertension Additional Family Medical History / Comment(s): arthritis Medications and Allergies Home Medications Medication Instructions Recorded Confirmed Type Asenapine Maleate [Saphris] 10 mg SUBLINGUAL HS 07/12/24 09/07/24 History Budesonide/Formoterol Fumarate 2 puff INHALATION RT-BID 07/12/24 09/07/24 History [Symbicort 160-4.5 Mcg Inhaler] LORazepam [Ativan] 1 mg PO BID PRN 07/12/24 09/07/24 History QUEtiapine [SEROquel] 100 mg PO HS 07/12/24 09/07/24 History Tiotropium 2.5 Mcg/Puff [Spiriva 2 puff INHALATION RT-DAILY 07/12/24 09/07/24 History Respimat 2.5 Mcg] traZODone HCL [Desyrel] 100 mg PO HS 07/12/24 09/07/24 History Omeprazole [PriLOSEC] 40 mg PO BID 07/26/24 09/07/24 History Ondansetron [Zofran] 4 mg PO BID PRN 07/26/24 09/07/24 History Nicotine 21Mg/24Hr Patch [Habitrol] 1 patch TRANSDERM DAILY 09/07/24 09/07/24 History Sulfamethox-Tmp 800-160Mg [Bactrim 1 tab PO Q12HR 09/07/24 09/07/24 History Ds] oxyCODONE HCL [OxyIR] 5 mg PO Q12H 09/07/24 09/07/24 History Allergies Allergy/AdvReac Type Severity Reaction Status Date / Time latex Allergy Rash/Hives Verified 09/07/24 05:21 morphine AdvReac Itching Verified 09/07/24 05:21 Physical Examination - Vital Signs Vital Signs: Vital Signs Temp Pulse Resp BP Pulse Ox 09/09/24 07:00 98.2 F 93 16 112/74 96 09/09/24 02:00 98 F 90 18 128/87 97 09/08/24 18:58 98.1 F 89 16 114/77 100 09/08/24 14:59 98.3 F 82 14 111/72 98 09/08/24 12:42 90 14 Intake and Output 09/08/24 09/09/24 09/09/24 22:59 06:59 14:59 Other: # Voids 1 1 # Bowel Movements 1 Patient is a young [place]ro[place] female, in no acute distress. Patient is alert awake oriented to time place and person. Speech and language functions are normal. Patient can name and repeat very well. No aphasia or dysarthria. Attention, concentration and fund of knowledge is adequate. On cranial nerve examination, pupils are equal, round and reacting to light, visual sutton are full on confrontation, with no neglect on double simultaneous stimulation. Extraocular muscles are intact with no nystagmus. Face is symmetric, tongue protrudes to the midline. Palatal elevation and sensation normal, hearing and shoulder shrug normal, facial sensation normal. On muscle strength testing, there is no pronator drift and the strength is normal in arms and legs distally and proximally, except hip flexion which is 4 bilaterally. Her knee extension, hip adduction, hip abduction, ankles and toes are normal. Deep tendon reflexes are symmetric at the biceps, 1 brachioradialis, 0 at the knees, 0 ankles and plantars downgoing bilaterally. Sensory to touch is decreased from toes up to the groin bilaterally. Normal sensations in the upper limbs. Cerebellar function showed possible mild ataxia for [id number] testing, right slightly more prominent than left. No dysdiadochokinesia. No ataxia for [id number] testing on either side. Tone and bulk of muscles normal. Gait deferred.. On general examination, there is no carotid bruit or murmur, S1-S2 audible. Chest is clear on consultation. Abdomen is soft nontender. No organomegaly, bowel sounds present. Peripheral pulses are present. No peripheral edema. Results - Laboratory Findings CBC and BMP: 09/09/24 06:12 09/09/24 06:12 Abnormal Lab Findings: Abnormal Labs 09/07/24 09/07/24 09/07/24 05:44 05:44 05:44 WBC 10.7 H RBC Hgb 11.3 L Hct MCHC 30.6 L RDW 17.1 H MPV Neutrophils # 8.0 H Chloride 109 H Carbon Dioxide 21 L BUN Creatinine BUN/Creatinine Ratio Glucose Plasma Lactic Acid Case 0.6 L Calcium Total Bilirubin ALT Total Protein 5.8 L Albumin 3.2 L Albumin/Globulin Ratio Urine Appearance Urine Protein Urine Ketones Urine Bilirubin Urine WBC Ur Squamous Epith Cells Hyaline Casts Urine Mucus 09/07/24 09/08/24 09/08/24 05:59 05:20 05:20 WBC RBC 3.41 L Hgb 10.1 L Hct 32.4 L MCHC RDW 17.5 H MPV Neutrophils # Chloride Carbon Dioxide 21.1 L BUN <3.5 L Creatinine 0.4 L BUN/Creatinine Ratio <8.75 L Glucose 67 L Plasma Lactic Acid Case Calcium 8.4 L Total Bilirubin <0.2 L ALT 7 L Total Protein 4.8 L Albumin 2.8 L Albumin/Globulin Ratio 1.40 L Urine Appearance Cloudy H Urine Protein Trace H Urine Ketones 2+ H Urine Bilirubin 1+ H Urine WBC 7 H Ur Squamous Epith Cells 5 H Hyaline Casts 12 H Urine Mucus Many H 09/09/24 09/09/24 06:12 06:12 WBC RBC 3.41 L Hgb 9.6 L Hct 31.0 L MCHC 31.0 L RDW 18.6 H MPV 12.3 H Neutrophils # Chloride 111 H Carbon Dioxide BUN <3.5 L Creatinine 0.4 L BUN/Creatinine Ratio <8.75 L Glucose Plasma Lactic Acid Case Calcium 8.2 L Total Bilirubin <0.2 L ALT Total Protein 4.6 L Albumin 2.7 L Albumin/Globulin Ratio 1.42 L Urine Appearance Urine Protein Urine Ketones Urine Bilirubin Urine WBC Ur Squamous Epith Cells Hyaline Casts Urine Mucus Assessment and Plan Assessment: * Subacute onset of peripheral neuropathy, likely due to nutritional/vitamin deficiency. * History of gastric bypass surgery. Patient has lost over 100 pounds fairly rapidly. * Depression * Folate deficiency * Thiamine deficiency Plan: * Patient currently not on any vitamin therapy, although had undergone bariatric surgery with significant weight loss. * We will check B12, MMA, folic acid, B6, thiamine, vitamin E, vitamin D, vitamin A, copper, zinc. * Hemoglobin A1c 5.1 on 03/26/2023. * Patient already has been diagnosed with vitamin B1 deficiency and folate deficiency in the previous lab draws. We will start folate and thiamine replacement for now. * Further management based upon above test results. * Dr. Jesus Sung to start neurology service in the morning. * Thank you for the consult.
[2024-09-10] MEDS: VANCOMYCIN 1,250 MG in SODIUM CHLORIDE 0.9% 250 ML IVPB SCH (04:53)
--- NOTE | 2024-09-10 11:46 | P.PN ---
Subjective Progress Note Date: 09/10/24 Principal diagnosis: Intractable vomiting Patient says she feels about the same. Still with nausea issues. Some pain. Objective - Vital Signs Vital signs: Vital Signs Temp 98.4 F 09/10/24 07:00 Pulse 72 09/10/24 07:00 Resp 15 09/10/24 07:00 BP 144/88 09/10/24 07:00 Pulse Ox 98 09/10/24 07:00 FiO2 Intake & Output 09/09/24 09/10/24 09/10/24 18:59 06:59 18:59 Intake Total 850 Balance 850 Intake: Intake, IV Titration 850 Amount Sodium Chloride 0.9% 1, 600 000 ml @ 75 mls/hr IV . [id number] ELPIDIO Rx#:[id number] Vancomycin 1,250 mg In 250 Sodium Chloride 0.9% 250 ml @ 125 mls/hr IVPB Q12H [facility] Rx#:[id number] Other: # Voids 3 - Exam Abdomen: Soft, nontender, nondistended - Labs CBC & Chem 7: 09/09/24 06:12 09/09/24 06:12 Labs: Abnormal Lab Results - Last 24 Hours (Table) 09/09/24 09/09/24 Range/Units 13:25 13:25 Vitamin B12 1513.0 H (200.0-944.0) pg/mL Folate 2.30 L (4.40-31.00) ng/mL Assessment and Plan (1) Intractable nausea and vomiting Narrative/Plan: Patient appears stable. Dr. Liu will be back tomorrow to discuss possible EGD with dilation. Continue antiacid therapy. Continue full liquid diet. Current Visit: Yes Status: Acute Code(s): R11.2 - NAUSEA WITH VOMITING, UNSPECIFIED SNOMED Code(s): 539735045
[2024-09-10] MEDS: AMPICILLIN-SULBACTAM 3 GM in SODIUM CHLORIDE 0.9% 100 ML IVPB SCH (14:53)
[2024-09-11] MEDS ORDERED: VANCOMYCIN TROUGH DUE 1 EACH MISC MISCELLANE ONE (03:00)
--- NOTE | 2024-09-11 04:05 | PN ---
PROGRESS NOTE A 34-year-old white female came into the hospital with abdominal pain, nausea, vomiting. History of gastric sleeve stricture, status post gastric bypass revision. General Surgery is consulted. lymphadenopathy, likely reactive. Consult General Surgery, right axillary abscess. IV antibiotics. Infectious Disease consult. UTI and morbid obesity, depression, sleep apnea. OBJECTIVE: VITAL SIGNS: Temperature 98.2, pulse 99, respiratory rate 16 to 18, blood pressure 112/74, O2 96. CARDIOVASCULAR: S1 and S2. LUNGS: Transmitted upper airway sounds. HEMATOLOGY: Negative for Homans. PSYCHIATRIC: Fair mood and affect. GI: Soft. Advance diet. IV antibiotics. Possible dilation tomorrow. Continue rehydration, pain medications, antidepressants. Continue on IV antibiotics per Infectious Disease. Prognosis is guarded. MMODL / IJN: [id number] /
[2024-09-11 10:37] LABS: Zinc, Serum 67 ug/dL (60-130)
--- NOTE | 2024-09-11 11:22 | P.PN ---
Subjective Progress Note Date: 09/11/24 I am seeing the patient for the first time during this admission. Please refer to Dr. Moeller's note for further details. Patient had bariatric surgery in December 2023 and had revision towards the end of May 2024. She is having numbness pain all over the lower extremities over the past 3 months and she states that some of her multi vitamin she could not tolerate because there are big pills. She denies of any lower back pain. Stated that she lost more than 100 pounds since her bariatric surgery. Objective - Vital Signs Vital signs: Vital Signs Temp 98.6 F 09/11/24 07:00 Pulse 87 09/11/24 07:00 Resp 16 09/11/24 07:00 BP 123/81 09/11/24 07:00 Pulse Ox 99 09/11/24 07:00 FiO2 Intake & Output 09/10/24 09/11/24 09/11/24 18:59 06:59 18:59 Other: Voiding Method Toilet Toilet # Voids 1 2 - Exam GENERAL: The patient is lying in bed and is not in acute distress. NEUROLOGICAL: Higher mental function: The patient is awake, alert, oriented to self, place and time. Patient is following commands. No aphasia and no neglect. Cranial nerves: The pupils are round, equal and reactive to light and accommodation. Visual sutton are full to confrontation throughout. Extraocular movement is intact no nystagmus is noted. The facial strength is normal throughout. Hearing is normal bilaterally to hand rub. Tongue is midline and moved [id number] without any difficulty. No dysarthria is noted. Shoulder shrug is normal bilaterally. Motor: The strength is 5 over 5 throughout uppers. Lowers is somewhat limited because of pain but has at least 4+ in lowers bilaterally.. Normal tone and bulk. Cerebellum: Normal finger to nose bilaterally. Sensation: Sensation is normal to touch throughout. - Labs CBC & Chem 7: 09/09/24 06:12 09/09/24 06:12 Labs: Microbiology - Last 24 Hours (Table) 09/07/24 07:26 Gram Stain - Final Axilla - Right Wound Culture - Final Assessment and Plan Assessment: * Subacute onset of peripheral neuropathy, likely due to nutritional/vitamin deficiency. * History of gastric bypass surgery. Patient has lost over 100 pounds fairly rapidly. * Depression * Folate deficiency * Thiamine deficiency Plan: * B12: 1513, thiamine: 49, vitamin D 31.7, folic acid 2.30, * MMA, B6, vitamin E, vitamin A, copper, zinc: Pending * Hemoglobin A1c 5.1 on 03/26/2023. * Patient already has been diagnosed with vitamin B1 deficiency and folate deficiency in the previous lab draws. Continue folic acid 1mg daily and thiamine 100mg daily. * I started the patient on Gabapentin 100mg 1 tab tid and patient was in agreement which can help with neuropathy. Notified the patient about the side effects of gabapentin which can cause confusion, weight gain and she was in agreement of pursuing with the medication. Will follow-up with patient sporadically. Time with Patient: Less than 30
[2024-09-11] MEDS: GABAPENTIN 100 MG CAP PO SCH (11:27)
--- NOTE | 2024-09-11 13:01 | P.PN ---
Subjective Progress Note Date: 09/11/24 Patient still has complaints of dysphagia. On exam vital signs appear stable. Abdomen soft. Patient is having bowel movements and flatus. Patient will have an esophagram upper GI performed. To evaluate her gastric bypass. Objective - Vital Signs Vital signs: Vital Signs Temp 98.6 F 09/11/24 07:00 Pulse 87 09/11/24 07:00 Resp 16 09/11/24 07:00 BP 123/81 09/11/24 07:00 Pulse Ox 99 09/11/24 07:00 FiO2 Intake & Output 09/10/24 09/11/24 09/11/24 18:59 06:59 18:59 Other: Voiding Method Toilet Toilet # Voids 1 2 - Labs CBC & Chem 7: 09/09/24 06:12 09/09/24 06:12 Labs: Abnormal Lab Results - Last 24 Hours (Table) 09/09/24 Range/Units 20:37 Copper 808 L (810-1990) ug/L Microbiology - Last 24 Hours (Table) 09/07/24 07:26 Gram Stain - Final Axilla - Right Wound Culture - Final
--- NOTE | 2024-09-11 15:12 | FL ---
EXAMINATION TYPE: FL UGI w esophagus DATE OF EXAM: 09/11/2024 COMPARISON: CT 09/07/2024 CLINICAL INDICATION: Female, 34 years old with history of Dysphagia, gastric bypass; PHH, nausea, vom iting, stomach pain TECHNIQUE: A single contrast esophagram and UGI study is performed. A total of 1 minute 11 seconds of fluoroscopic time was utilized during procedure and 36 images obtained. Total dose area product (D AP) in uGy*m?, mGy*cm? (or similar): 50. FINDINGS: The esophagus shows normal motility and emptying into the stomach. No evidence of hiatal hernia or s tricture noted. There are postsurgical changes from Glenn-en-Y gastric bypass. Possible two focal, adjacent segments o f relative luminal narrowing, one along the stomach adjacent to the gastrojejunostomy and one at the anastomosis. No extravasation of contrast to indicate a leak. Satisfactory opacification of proximal jejunal loops . IMPRESSION: Patient status post Glenn-en-Y gastric bypass. No esophageal stricture or hiatal hernia. N o obstruction. There appear to be 2 adjacent segments of relative luminal narrowing, one along the st omach adjacent to the gastrojejunostomy and one at the anastomosis. [facility], , 09/11/2024 3:09 PM
--- NOTE | 2024-09-11 15:28 | P.PN ---
Subjective Progress Note Date: 09/10/24 Principal diagnosis: Reason for follow-up is right axillary abscess Patient is a 34-year-old -[place]inames[place] female with a past medical history significant for PE reflux sleep apnea presenting the hospital with right axillary pain and swelling concerning for abscess. Status post drainage in the ER. On today's evaluation that is 09/10/2024, patient has been afebrile, patient is breathing comfortably and is currently on room air, patient denies having any significant cough no chest pain, patient denies nausea vomiting or diarrhea and no abdominal pain patient pain and drainage to the right axillary area has decreased in intensity. No new lab has been obtained today wound culture negative Objective - Vital Signs Vital signs: Vital Signs Temp 98.4 F 09/10/24 07:00 Pulse 72 09/10/24 07:00 Resp 15 09/10/24 08:00 BP 144/88 09/10/24 07:00 Pulse Ox 98 09/10/24 07:00 FiO2 Intake & Output 09/09/24 09/10/24 09/10/24 18:59 06:59 18:59 Intake Total 850 Balance 850 Intake: Intake, IV Titration 850 Amount Sodium Chloride 0.9% 1, 600 000 ml @ 75 mls/hr IV . [id number] [facility] Rx#:[id number] Vancomycin 1,250 mg In 250 Sodium Chloride 0.9% 250 ml @ 125 mls/hr IVPB Q12H [facility] Rx#:[id number] Other: Voiding Method Toilet # Voids 3 - Exam Middle-age erly female up in the bed in no distress No tachypnea or accessory muscle respiration use Unlabored breathing, clear to auscultation anteriorly Patient is awake alert oriented x 3 Right axillary dressing intact minimal induration - Labs CBC & Chem 7: 09/09/24 06:12 09/09/24 06:12 Labs: Abnormal Lab Results - Last 24 Hours (Table) 09/09/24 09/09/24 Range/Units 13:25 13:25 Vitamin B12 1513.0 H (200.0-944.0) pg/mL Folate 2.30 L (4.40-31.00) ng/mL Assessment and Plan (1) Cystitis Current Visit: Yes Status: Acute Code(s): N30.90 - CYSTITIS, UNSPECIFIED WITHOUT HEMATURIA SNOMED Code(s): 81691247 (2) Abscess of right axilla Current Visit: Yes Status: Acute Code(s): L02.411 - CUTANEOUS ABSCESS OF RIGHT AXILLA SNOMED Code(s): 33125167 Plan: 1patient presented to hospital with right axillary area pain swelling redness has been diagnosed with an abscess status post drainage in the ER with a Gram stain showing gram-positive cocci high clinical suspicious for MRSA 2patient did have a significant abnormality on the CT concerning for cystitis but UA not significantly positive or any significant urinary symptoms 3-patient right axillary abscess culture negative for MRSA we will discontinue vancomycin start the patient on Unasyn finishing therapy with oral Augmentin Dictation was produced using [employer] dictation software. please excuse any grammatical, word or spelling errors. Time with Patient: Less than 30
--- NOTE | 2024-09-11 15:29 | P.PN ---
Subjective Progress Note Date: 09/11/24 Principal diagnosis: Reason for follow-up is right axillary abscess Patient is a 34-year-old -Greek female with a past medical history significant for PE reflux sleep apnea presenting the hospital with right axillary pain and swelling concerning for abscess. Status post drainage in the ER. On today's evaluation that is 09/11/2024, Patient is afebrile this morning pa tient denies having any chest pain shortness of breath or cough, the patient is currently on room air, patient denies any abdominal pain no diarrhea no nausea no vomiting, the patient pain to the right axillary has decreased overall drainage has stopped feeling better. No new labs culture from the right axilla remains to be negative Objective - Vital Signs Vital signs: Vital Signs Temp 98.6 F 09/11/24 07:00 Pulse 87 09/11/24 07:00 Resp 16 09/11/24 07:00 BP 123/81 09/11/24 07:00 Pulse Ox 99 09/11/24 07:00 FiO2 Intake & Output 09/10/24 09/11/24 09/11/24 18:59 06:59 18:59 Other: Voiding Method Toilet Toilet # Voids 1 2 - Exam GENERAL DESCRIPTION: Middle-age female lying in bed in no distress RESPIRATORY SYSTEM: Unlabored breathing , decreased breath sounds at bases HEART: S1 S2 regular rate and rhythm , ABDOMEN: Soft , no tenderness EXTREMITIES: Right axillary induration has decreased no drainage - Labs CBC & Chem 7: 09/09/24 06:12 09/09/24 06:12 Labs: Abnormal Lab Results - Last 24 Hours (Table) 09/09/24 Range/Units 20:37 Copper 808 L (810-1990) ug/L Microbiology - Last 24 Hours (Table) 09/07/24 07:26 Gram Stain - Final Axilla - Right Wound Culture - Final Assessment and Plan (1) Cystitis Current Visit: Yes Status: Acute Code(s): N30.90 - CYSTITIS, UNSPECIFIED WITHOUT HEMATURIA SNOMED Code(s): 56843666 (2) Abscess of right axilla Current Visit: Yes Status: Acute Code(s): L02.411 - CUTANEOUS ABSCESS OF RIGHT AXILLA SNOMED Code(s): 04352356 Plan: 1patient presented to hospital with right axillary area pain swelling redness has been diagnosed with an abscess status post drainage in the ER with a Gram stain showing gram-positive cocci high clinical suspicious for MRSA 2patient did have a significant abnormality on the CT concerning for cystitis but UA not significantly positive or any significant urinary symptoms 3-patient right axillary abscess culture negative for MRSA currently on Unasyn we will finish therapy with oral Augmentin prescription sent to the pharmacy Dictation was produced using [employer] dictation software. please excuse any grammatical, word or spelling errors. Time with Patient: Less than 30
[2024-09-12 07:34] LABS: Methylmalonic Acid <0.10 umol/L (<0.40)
--- NOTE | 2024-09-12 11:10 | P.PN ---
Subjective Progress Note Date: 09/12/24 Patient is resting company bed. She is tolerating clear liquids. Her esophagram upper GI performed yesterday shows no sign of obstruction. There is some minimal stenosis at the gastrojejunostomy. However there is prompt egress of contrast through this area. On exam vital signs appear stable. Abdomen soft. Patient should have her diet advanced. She will follow-up with her gastric bypass doctor at [facility]. Objective - Vital Signs Vital signs: Vital Signs Temp 98.2 F 09/12/24 06:50 Pulse 73 09/12/24 06:50 Resp 17 09/12/24 06:50 BP 134/86 09/12/24 06:50 Pulse Ox 95 09/12/24 06:50 FiO2 Intake & Output 09/11/24 09/12/24 09/12/24 18:59 06:59 18:59 Intake Total 540 Balance 540 Intake: Oral 540 Other: # Voids 2 2 # Bowel Movements 0 - Labs CBC & Chem 7: 09/09/24 06:12 09/09/24 06:12 Labs: Abnormal Lab Results - Last 24 Hours (Table) 09/09/24 Range/Units 20:37 Copper 808 L (810-1990) ug/L
--- NOTE | 2024-09-12 22:30 | PN ---
PROGRESS NOTE SUBJECTIVE: A 34-year-old white female with retractable nausea and vomiting. The patient continues to do well at this time once she is set down for EGD for possible esophageal stenosis dilation. Waiting for Dr. Anne to get procedure done. OBJECTIVE: CARDIOVASCULAR: S1 and S2. LUNGS: Transmitted upper airway sounds. GI: Soft. HEMATOLOGY: Negative for Homans. ASSESSMENT: Intractable nausea and vomiting, esophageal stenosis, status post gastric sleeve, esophageal dilation today. Advance diet after that. Prognosis guarded. MMODL / IJN: [id number] /
[2024-09-13 07:39] VITALS: BP 147/96; PULSE 87; RESP 15; TEMP 98.1
[2024-09-13 08:38] LABS: Vitamin E (Alpha Tocopherol) 788 ug/dL (500-1800)
[2024-09-13 09:19] LABS: Basophils # (A) 0.02 X 10*3/uL (0.00-0.10); Basophils % (A) 0.3 %; Eosinophils # (A) 0.22 X 10*3/uL (0.04-0.35); Eosinophils % (A) 3.1 %; HCT 32.3 % (37.2-46.3); HGB 10.3 g/dL (12.0-15.0); Lymphocytes % (A) 32.7 %; MCH 28.3 pg (27.0-32.0); MCHC 31.9 g/dL (32.0-37.0); MCV 88.7 FL (80.0-97.0); Mean Platelet Volume 12.3 FL (9.5-12.2); Monocytes # (A) 0.53 X 10*3/uL (0.20-1.00); Monocytes % (A) 7.5 %; NRBC Per 100 WBC 0 X 10*3/uL (0.00-0.01); Neutrophils # (A) 3.95 X 10*3/uL (1.80-7.70); Neutrophils % (A) 56.1 %; Platelet Count 232 X 10*3/uL (140-440); RBC 3.64 X 10*6/uL (4.10-5.20); RDW 17.6 % (11.5-14.5); WBC 7.04 X 10*3/uL (4.50-10.00)
[2024-09-13 09:47] LABS: ALT 7 U/L (8-44); AST 13 U/L (13-35); Albumin 2.6 g/dL (3.8-4.9); Albumin/Globulin Ratio 1.24 Ratio (1.60-3.17); Alkaline Phosphatase 51 U/L (41-126); BUN/Creat Ratio <8.75 Ratio (12.00-20.00); Blood Urea Nitrogen <3.5 mg/dL (9.0-27.0); Calcium 8.1 mg/dL (8.7-10.3); Chloride 108 mmol/L (96-109); Globulin 2.1 g/dL (1.6-3.3); Glucose 75 mg/dL (70-110); Potassium 3.4 mmol/L (3.5-5.5); Sodium 144 mmol/L (135-145); Total Bilirubin 0.2 mg/dL (0.3-1.2); Total Protein 4.7 g/dL (6.2-8.2)
--- NOTE | 2024-09-13 11:43 | P.PN ---
Subjective Progress Note Date: 09/13/24 SURGICAL PROGRESS NOTE CHIEF COMPLAINT: Abdominal pain HISTORY OF PRESENT ILLNESS: Patient is lying in bed comfortably. She is tolerating regular diet. Her esophagram upper GI performed yesterday shows no sign of obstruction. There is some minimal stenosis at the gastrojejunostomy. However there is prompt egress of contrast through this area. Afebrile. WBC 7.04. thiamine level 49 PHYSICAL EXAM: VITAL SIGNS: Reviewed. GENERAL: Well-developed in no acute distress. ABDOMEN: Soft. Nondistended. ASSESSMENT: 1. Intractable nausea and vomiting PLAN: -Patient currently tolerating diet. She is stable for discharge from surgical standpoint. Recommend outpatient follow-up with her gastric bypass surgeon at [facility]. -Surgical service will sign off. Please call with any questions or concerns. Physician Addictions Therapist note has been reviewed by physician. Signing provider agrees with the documented findings, assessment, and plan of care. Objective - Vital Signs Vital signs: Vital Signs Temp 98.1 F 09/13/24 07:38 Pulse 87 09/13/24 07:38 Resp 15 09/13/24 07:38 BP 147/96 09/13/24 07:38 Pulse Ox 98 09/13/24 07:38 FiO2 Intake & Output 09/12/24 09/13/24 09/13/24 18:59 06:59 18:59 Intake Total 0 Balance 0 Intake: Oral 0 Other: # Voids 3 3 - Labs CBC & Chem 7: 09/13/24 05:16 09/13/24 05:16 Labs: Abnormal Lab Results - Last 24 Hours (Table) 09/13/24 09/13/24 Range/Units 05:16 05:16 RBC 3.64 L (4.10-5.20) X 10*6/uL Hgb 10.3 L (12.0-15.0) g/dL Hct 32.3 L (37.2-46.3) % MCHC 31.9 L (32.0-37.0) g/dL RDW 17.6 H (11.5-14.5) % MPV 12.3 H (9.5-12.2) FL Potassium 3.4 L (3.5-5.5) mmol/L BUN <3.5 L (9.0-27.0) mg/dL Creatinine 0.4 L (0.6-1.5) mg/dL BUN/Creatinine Ratio <8.75 L (12.00-20.00) Ratio Calcium 8.1 L (8.7-10.3) mg/dL Total Bilirubin 0.2 L (0.3-1.2) mg/dL ALT 7 L (8-44) U/L Total Protein 4.7 L (6.2-8.2) g/dL Albumin 2.6 L (3.8-4.9) g/dL Albumin/Globulin Ratio 1.24 L (1.60-3.17) Ratio
--- NOTE | 2024-09-13 14:52 | P.PN ---
Subjective Progress Note Date: 09/12/24 Principal diagnosis: Reason for follow-up is right axillary abscess Patient is a 34-year-old -[place]rydein[place] female with a past medical history significant for PE reflux sleep apnea presenting the hospital with right axillary pain and swelling concerning for abscess. Status post drainage in the ER. On today's evaluation that is 09/12/2024,the patient denies any fever or any chills, patient is breathing comfortably on room air, the patient denies chest pain shortness of breath and no significant cough, patient pain to the right axillary has decreased in intensity and denies having any diarrhea. No lab draw today culture remains to be negative Objective - Vital Signs Vital signs: Vital Signs Temp 98.7 F 09/12/24 14:55 Pulse 103 H 09/12/24 14:55 Resp 17 09/12/24 14:55 BP 133/86 09/12/24 14:55 Pulse Ox 100 09/12/24 14:55 FiO2 Intake & Output 09/11/24 09/12/24 09/12/24 18:59 06:59 18:59 Intake Total 540 Balance 540 Intake: Oral 540 Other: # Voids 2 2 3 # Bowel Movements 0 - Exam GENERAL DESCRIPTION: Middle-age female lying in bed in no distress RESPIRATORY SYSTEM: Unlabored breathing , decreased breath sounds at bases HEART: S1 S2 regular rate and rhythm , ABDOMEN: Soft , no tenderness EXTREMITIES: Right axillary induration has decreased no drainage - Labs CBC & Chem 7: 09/13/24 05:16 09/13/24 05:16 Assessment and Plan (1) Cystitis Status: Acute Code(s): N30.90 - CYSTITIS, UNSPECIFIED WITHOUT HEMATURIA SNOMED Code(s): 80779595 (2) Abscess of right axilla Status: Acute Code(s): L02.411 - CUTANEOUS ABSCESS OF RIGHT AXILLA SNOMED Code(s): 58286851 Plan: 1patient presented to hospital with right axillary area pain swelling redness has been diagnosed with an abscess status post drainage in the ER with a Gram stain showing gram-positive cocci high clinical suspicious for MRSA 2patient did have a significant abnormality on the CT concerning for cystitis but UA not significantly positive or any significant urinary symptoms 3-patient right axillary abscess culture negative for MRSA patient is currently on IV Unasyn to continue while inpatient Dictation was produced using [employer] software. please excuse any grammatical, word or spelling errors. Time with Patient: Less than 30
--- NOTE | 2024-09-13 14:52 | P.PN ---
Subjective Progress Note Date: 09/13/24 Principal diagnosis: Reason for follow-up is right axillary abscess Patient is a 34-year-old -Jordanian female with a past medical history significant for PE reflux sleep apnea presenting the hospital with right axillary pain and swelling concerning for abscess. Status post drainage in the ER. On today's evaluation that is 09/13/2024,the patient remains to be afebrile, patient is on room air not requiring supplemental oxygen and denies any shortness of breath no chest pain or cough.Patient denies having any nausea or vomiting, and denies pain to the right axillary or any further drainage. Patient did have white count of 7.04, creatinine 0.4 culture remains to be n egative Objective - Vital Signs Vital signs: Vital Signs Temp 98.1 F 09/13/24 07:38 Pulse 87 09/13/24 07:38 Resp 15 09/13/24 07:38 BP 147/96 09/13/24 07:38 Pulse Ox 98 09/13/24 07:38 FiO2 Intake & Output 09/12/24 09/13/24 09/13/24 18:59 06:59 18:59 Intake Total 0 Balance 0 Intake: Oral 0 Other: # Voids 3 3 - Exam GENERAL DESCRIPTION: Middle-age female lying in bed in no distress RESPIRATORY SYSTEM: Unlabored breathing , decreased breath sounds at bases HEART: S1 S2 regular rate and rhythm , ABDOMEN: Soft , no tenderness EXTREMITIES: Right axillary induration has decreased no drainage - Labs CBC & Chem 7: 09/13/24 05:16 09/13/24 05:16 Labs: Abnormal Lab Results - Last 24 Hours (Table) 09/13/24 09/13/24 Range/Units 05:16 05:16 RBC 3.64 L (4.10-5.20) X 10*6/uL Hgb 10.3 L (12.0-15.0) g/dL Hct 32.3 L (37.2-46.3) % MCHC 31.9 L (32.0-37.0) g/dL RDW 17.6 H (11.5-14.5) % MPV 12.3 H (9.5-12.2) FL Potassium 3.4 L (3.5-5.5) mmol/L BUN <3.5 L (9.0-27.0) mg/dL Creatinine 0.4 L (0.6-1.5) mg/dL BUN/Creatinine Ratio <8.75 L (12.00-20.00) Ratio Calcium 8.1 L (8.7-10.3) mg/dL Total Bilirubin 0.2 L (0.3-1.2) mg/dL ALT 7 L (8-44) U/L Total Protein 4.7 L (6.2-8.2) g/dL Albumin 2.6 L (3.8-4.9) g/dL Albumin/Globulin Ratio 1.24 L (1.60-3.17) Ratio Assessment and Plan (1) Cystitis Status: Acute Code(s): N30.90 - CYSTITIS, UNSPECIFIED WITHOUT HEMATURIA SNOMED Code(s): 24705871 (2) Abscess of right axilla Status: Acute Code(s): L02.411 - CUTANEOUS ABSCESS OF RIGHT AXILLA SNOMED Code(s): 26762250 Plan: 1patient presented to hospital with right axillary area pain swelling redness has been diagnosed with an abscess status post drainage in the ER with a Gram stain showing gram-positive cocci high clinical suspicious for MRSA 2patient did have a significant abnormality on the CT concerning for cystitis but UA not significantly positive or any significant urinary symptoms 3-patient right axillary abscess culture negative for MRSA patient has shown overall improvement on IV Unasyn white count has been normal she will finish therapy with oral Augmentin prescription already sent to the pharmacy Dictation was produced using [employer] dictation software. please excuse any grammatical, word or spelling errors. Time with Patient: Less than 30
--- NOTE | 2024-09-13 15:56 | P.PN ---
Subjective Progress Note Date: 08/13/24 I am following-up with patient and states since on low dose on Gabapentin has been having some improvement in pain in lower extremity. Otherwise feels about the same. Objective - Vital Signs Vital signs: Vital Signs Temp 98.1 F 09/13/24 07:38 Pulse 87 09/13/24 07:38 Resp 15 09/13/24 07:38 BP 147/96 09/13/24 07:38 Pulse Ox 98 09/13/24 07:38 FiO2 Intake & Output 09/12/24 09/13/24 09/13/24 18:59 06:59 18:59 Intake Total 0 Balance 0 Intake: Oral 0 Other: # Voids 3 3 - Exam GENERAL: The patient is lying in bed and is not in acute distress. NEUROLOGICAL: Higher mental function: The patient is awake, alert, oriented to self, place and time. Patient is following commands. No aphasia and no neglect. Cranial nerves: The pupils are round, equal and reactive to light and accommodation. Visual sutton are full to confrontation throughout. Extraocular movement is intact no nystagmus is noted. The facial strength is normal throughout. Hearing is normal bilaterally to hand rub. Tongue is midline and moved [id number] without any difficulty. No dysarthria is noted. Shoulder shrug is normal bilaterally. Motor: The strength is 5 over 5 throughout uppers. Lowers is somewhat limited because of pain but has at least 4+ in lowers bilaterally.. Normal tone and bulk. Cerebellum: Normal finger to nose bilaterally. Sensation: Sensation is normal to touch throughout. - Labs CBC & Chem 7: 09/13/24 05:16 09/13/24 05:16 Labs: Abnormal Lab Results - Last 24 Hours (Table) 09/13/24 09/13/24 Range/Units 05:16 05:16 RBC 3.64 L (4.10-5.20) X 10*6/uL Hgb 10.3 L (12.0-15.0) g/dL Hct 32.3 L (37.2-46.3) % MCHC 31.9 L (32.0-37.0) g/dL RDW 17.6 H (11.5-14.5) % MPV 12.3 H (9.5-12.2) FL Potassium 3.4 L (3.5-5.5) mmol/L BUN <3.5 L (9.0-27.0) mg/dL Creatinine 0.4 L (0.6-1.5) mg/dL BUN/Creatinine Ratio <8.75 L (12.00-20.00) Ratio Calcium 8.1 L (8.7-10.3) mg/dL Total Bilirubin 0.2 L (0.3-1.2) mg/dL ALT 7 L (8-44) U/L Total Protein 4.7 L (6.2-8.2) g/dL Albumin 2.6 L (3.8-4.9) g/dL Albumin/Globulin Ratio 1.24 L (1.60-3.17) Ratio Assessment and Plan Assessment: * Subacute onset of peripheral neuropathy, likely due to nutritional/vitamin deficiency. * History of gastric bypass surgery. Patient has lost over 100 pounds fairly rapidly. * Depression * Folate deficiency * Thiamine deficiency Plan: * B12: 1513, thiamine: 49, vitamin D 31.7, folic acid 2.30, * MMA <0.10, vitamin E: 788, * B6, copper, zinc, vitamin A: Pending * Hemoglobin A1c 5.1 on 03/26/2023. * Patient already has been diagnosed with vitamin B1 deficiency and folate deficiency in the previous lab draws. Continue folic acid 1mg daily and thiamine 100mg daily. * Recommend going up on Gabapentin from 100mg tid to 300mg bid which can help with neuropathy. Notified the patient about the side effects of gabapentin which can cause confusion, weight gain and she was in agreement of pursuing with the medication. * Consider EMG with [facility] as outpatient of the lower extremities as outpatient. * Recommend the patient to follow-up with neurologist as outpatient within 3 weeks. Will follow-up with patient sporadically. Time with Patient: Less than 30
--- NOTE | 2024-09-17 11:31 | CDI ---
Documentation Clarification Form Date: 09/17/2024 11:14:03 AM From: Jeny Currie Phone: Admit Date: 09/07/2024 08:42:00 AM Patient Name: Geneva Chavez Visit Number: [id number] Discharge Date: 09/13/2024 02:28:00 PM ATTENTION: The Clinical Documentation Specialists (CDI) and [facility] Coding Staff appreciate your assistance in clarifying documentation. Please respond to the clarification below the line at the bottom and electronically sign. The CDI & [facility] Coding staff will review the response and follow-up if needed. Please note: Queries are made part of the Legal Health Record. If you have any questions, please contact the author of this message via ITS. Doctor/Provider: Fransisca Glass There is documentation of nausea and vomiting, history of gastric sleeve followed bygastric bypass, andrevision. Additional clarification is requested. History/Risk Factors: 34yo F, Abdominal pain, NV, eccentriclymphadenopathy, Rt axillary abscess, UTI, morbid obesity, major depression, sleep disordered breathing/sleep apnea, subacute onset ofperipheral neuropathy, likely d/t Folate deficiency, thiamine deficiency, former smoker Clinical Indicators: Patient has lost over 100 pounds fairly rapidly. Treatment: FLUGIw esophagus- Patientstatus post Eroo-le-Soymargj bypass. Noesophageal strictureorhiatal hernia. Noobstruction. There appear to be 2 adjacent segments of relative luminalnarrowing, one along the stomach adjacent to the gastrojejunostomyand one at theanastomosis. Can you please clarify the cause of nausea and vomiting? [x ] Vomiting following gastrointestinal surgery [ ] UTI [ ] Luminal narrowing, along the stomach adjacent to the gastrojejunostomy and at the anastomosis [ ] Other, please specify [ ] Unable to determine (Template Last Revised: November 2020) MTDD
== END 2024-09-13 14:28 | disposition home or self-care (01) | DRG 252 ==
LOC: EC 05:05 → 6NMEDSUR 08:41 → OBSVTOIN 08:42 → 6NMEDSUR 16:28
PROVIDERS: ADMIT Family Medicine; ATTEND Family Medicine
PROC: 0X940ZZ Drainage of Right Axilla, Open Approach (ICD-10-PCS; principal; 2024-09-07)
DX: K91.0 Vomiting following gastrointestinal surgery (principal); G63 Polyneuropathy in diseases classified elsewhere; N30.91 Cystitis, unspecified with hematuria; E66.01 Morbid (severe) obesity due to excess calories; F31.9 Bipolar disorder, unspecified; Z68.31 Body mass index [BMI] 31.0-31.9, adult; J44.89 Other specified chronic obstructive pulmonary disease; D50.9 Iron deficiency anemia, unspecified; L02.411 Cutaneous abscess of right axilla; E53.8 Deficiency of other specified B group vitamins; E51.9 Thiamine deficiency, unspecified; R59.1 Generalized enlarged lymph nodes; G47.30 Sleep apnea, unspecified; K21.9 Gastro-esophageal reflux disease without esophagitis; K95.89 Other complications of other bariatric procedure; R13.10 Dysphagia, unspecified; F41.1 Generalized anxiety disorder; Y83.8 Other surgical procedures as the cause of abnormal reaction of the patient, or of later complication, without mention of misadventure at the time of the procedure; Z79.891 Long term (current) use of opiate analgesic; Z87.891 Personal history of nicotine dependence; Z86.711 Personal history of pulmonary embolism; Z79.51 Long term (current) use of inhaled steroids; Z79.899 Other long term (current) drug therapy
CPT/HCPCS: 36415; 74177; 74240; 80053; 80202; 81001; 81025; 82150; 82306; 82525; 82607; 82746; 83605; 83690; 83921; 84207; 84425; 84446; 84590; 84630; 85025; 87070; 87205; 96361; 96374; 96375; 96376; 99285

== ENCOUNTER 2024-09-16 16:07 | Inpatient (IN) | payer OTHER ==
--- NOTE | 2024-09-16 16:23 | ED ---
Recheck HPI - General Chief Complaint: Abdominal Pain Stated Complaint: abd pain nausea Time Seen by Provider: 09/16/24 16:20 Source: patient, RN notes reviewed, old records reviewed Mode of arrival: ambulatory Limitations: no limitations - History of Present Illness Initial Comments: This is a 34-year-old female with recent hospital admission, complications of abdominal surgery, gastric bypass, revision, patient with recent hospital admission for nausea vomiting and anorexia. Now complaining of abdominal pain severe which is new. No fevers, no blood in vomit or stool MD Complaint: other (Continued abdominal pain with nausea vomiting and diminished appetite) -: days(s) Returns Today for: persistent/worsening pain related to initial visit Symptoms Since Prior Visit: worsening pain Associated Symptoms: nausea, abdominal pain Treatments Prior to Arrival: other - Related Data Home Medications Medication Instructions Recorded Confirmed Asenapine Maleate [Saphris] 10 mg SL HS 07/12/24 09/16/24 Budesonide/Formoterol Fumarate 2 puff INHALATION RT-BID 07/12/24 09/16/24 [Symbicort 160-4.5 Mcg Inhaler] LORazepam [Ativan] 1 mg PO BID PRN 07/12/24 09/16/24 QUEtiapine [SEROquel] 100 mg PO HS 07/12/24 09/16/24 Tiotropium 2.5 Mcg/Puff [Spiriva 2 puff INHALATION RT-DAILY 07/12/24 09/16/24 Respimat 2.5 Mcg] traZODone HCL [Desyrel] 100 mg PO HS 07/12/24 09/16/24 Omeprazole [PriLOSEC] 40 mg PO BID 07/26/24 09/16/24 Ondansetron [Zofran] 4 mg PO BID PRN 07/26/24 09/16/24 Nicotine 21Mg/24Hr Patch [Habitrol] 1 patch TRANSDERM DAILY 09/07/24 09/16/24 oxyCODONE HCL [OxyIR] 5 mg PO Q12H 09/07/24 09/16/24 Previous Rx's Medication Instructions Recorded Pantoprazole Sodium [Protonix] 40 mg PO BID #60 tab 09/20/24 Hydrocortisone [Cortef] 20 mg PO BID 30 Days #60 tab 09/21/24 Magnesium Oxide [Mag-Ox] 400 mg PO BID 30 Days #60 tab 09/21/24 Potassium Chloride ER [K-Dur 20] 20 meq PO BID 30 Days #60 tab 09/21/24 Scopolamine 1 mg/72 Hr Patch 1 patch TRANSDERM Q72H 30 Days #10 09/21/24 [TransDerm Scop] patch Allergies Allergy/AdvReac Type Severity Reaction Status Date / Time latex Allergy Rash/Hives Verified 09/16/24 19:36 morphine AdvReac Itching Verified 09/16/24 19:36 Review of Systems ROS Statement: Those systems with pertinent positive or pertinent negative responses have been documented in the HPI. ROS Other: All systems not noted in ROS Statement are negative. Past Medical History Past Medical History: GERD/Reflux, Pulmonary Embolus (PE), Sleep Apnea/CPAP/BIPAP Additional Past Medical History / Comment(s): iron defiency anemia, currently getting iron infusions, no cpap used, pulmonary embolism 02/13/24 History of Any Multi-Drug Resistant Organisms: None Reported Past Surgical History: Bariatric Surgery, Section, Cholecystectomy, Tubal Ligation, Uterine Ablation Additional Past Surgical History / Comment(s): 2008 AND 2015 (c/s) and 2010 (cholecyst). 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 gastric bypass 06/11/24 Past Anesthesia/Blood Transfusion Reactions: No Reported Reaction Past Psychological History: Anxiety, Bipolar, Depression Smoking Status: Former smoker Past Alcohol Use History: None Reported Past Drug Use History: None Reported - Past Family History Mother Family Medical History: Asthma, COPD, Diabetes Mellitus, Hypertension Additional Family Medical History / Comment(s): depression, anxiety, sleep apnea, Father Family Medical History: Hypertension Additional Family Medical History / Comment(s): arthritis General Exam Limitations: no limitations General appearance: alert, in no apparent distress Head exam: Present: atraumatic, normocephalic, normal inspection Eye exam: Present: normal appearance, PERRL, EOMI. Absent: scleral icterus, conjunctival injection, periorbital swelling ENT exam: Present: normal exam, mucous membranes moist Neck exam: Present: normal inspection. Absent: tenderness, meningismus, lymphadenopathy Respiratory exam: Present: normal lung sounds bilaterally. Absent: respiratory distress, wheezes, rales, rhonchi, stridor Cardiovascular Exam: Present: regular rate, normal rhythm, normal heart sounds. Absent: systolic murmur, diastolic murmur, rubs, gallop, clicks GI/Abdominal exam: Present: soft, normal bowel sounds. Absent: distended, tenderness, guarding, rebound, rigid Extremities exam: Present: normal inspection, full ROM, normal capillary refill. Absent: tenderness, pedal edema, joint swelling, calf tenderness Back exam: Present: normal inspection Neurological exam: Present: alert, oriented X3, CN II-XII intact Psychiatric exam: Present: normal affect, normal mood Skin exam: Present: warm, dry, intact, normal color. Absent: rash Course Vital Signs 09/16/24 09/16/24 09/16/24 16:16 17:41 19:09 Temperature 99.2 F 99.2 F 98.2 F Pulse Rate 122 H 101 H 102 H Pulse Rate [ Pulse Oximetery ] Respiratory 18 16 18 Rate Blood Pressure 141/89 144/92 152/104 Blood Pressure [Left Arm] O2 Sat by Pulse 98 98 100 Oximetry 09/16/24 09/16/24 09/17/24 20:29 22:41 01:58 Temperature 98.2 F 97.5 F L 98.5 F Pulse Rate 91 88 Pulse Rate [ 93 Pulse Oximetery ] Respiratory 15 16 18 Rate Blood Pressure 143/100 139/96 Blood Pressure 139/93 [Left Arm] O2 Sat by Pulse 99 99 98 Oximetry 09/17/24 09/17/24 09/17/24 09:15 11:08 11:22 Temperature 98.3 F Pulse Rate 85 80 85 Pulse Rate [ Pulse Oximetery ] Respiratory 18 18 Rate Blood Pressure 143/90 131/84 Blood Pressure [Left Arm] O2 Sat by Pulse 97 97 Oximetry 09/17/24 09/17/24 09/17/24 11:31 12:30 13:52 Temperature Pulse Rate 87 70 84 Pulse Rate [ Pulse Oximetery ] Respiratory 18 18 Rate Blood Pressure 124/89 Blood Pressure [Left Arm] O2 Sat by Pulse 96 Oximetry 09/17/24 09/17/24 09/17/24 15:11 15:18 15:26 Temperature 97.5 F L Pulse Rate 79 82 85 Pulse Rate [ Pulse Oximetery ] Respiratory 18 Rate Blood Pressure 132/97 Blood Pressure [Left Arm] O2 Sat by Pulse 97 Oximetry 09/17/24 16:45 Temperature Pulse Rate 76 Pulse Rate [ Pulse Oximetery ] Respiratory 17 Rate Blood Pressure 134/98 Blood Pressure [Left Arm] O2 Sat by Pulse 98 Oximetry - Reevaluation(s) Reevaluation #1: 09/16/24 17:05 Medical records reviewed Reevaluation #2: 09/16/24 19:55 Patient symptoms difficult to control Reevaluation #3: 09/16/24 19:55 Patient informed of results and questions answered Reevaluation #4: Was pt. sent in by a medical professional or institution (, STEPHY, PROGRAM PROJECT ANALYST, urgent care, hospital, or fdc...) When possible be specific @ -no Did you speak to anyone other than the patient for history (EMS, parent, family, police, friend...)? What history was obtained from this source @ -no Did you review nursing and triage notes (agree or disagree)? Why? @ -agree Are old charts reviewed (outside hosp., previous admission, EMS record, old EKG, old radiological studies, urgent care reports/EKG's, fdc records)? Report findings @ -yes Differential Diagnosis (chest pain, altered mental status, abdominal pain women, abdominal pain men, vaginal bleeding, weakness, fever, dyspnea, syncope, headache, dizziness, GI bleed, back pain, seizure, CVA, palpatations, mental health, musculoskeletal)? @ -prior EKG interpreted by me (3pts min.). @ -yes X-rays interpreted by me (1pt min.). @ -no CT interpreted by me (1pt min.). @ -Negative for acute disease U/S interpreted by me (1pt. min.). @ -no What testing was considered but not performed or refused? (CT, X-rays, U/S, labs)? Why? @ -none What meds were considered but not given or refused? Why? @ -none Did you discuss the management of the patient with other professionals (professionals i.e. [employer], PROGRAM PROJECT ANALYST, lab, RT, psych nurse, social service director, dance master, teacher, digital marketing officer, assistant case manager)? Give summary @ -no Was smoking cessation discussed for >3mins.? @ -no Was critical care preformed (if so, how long)? @ -no Were there social determinants of health that impacted care today? How? (Homelessness, low income, unemployed, alcoholism, drug addiction, transp ortation, low edu. Level, literacy, decrease access to med. care, longterm, rehab)? @ -none Was there de-escalation of care discussed even if they declined (Discuss DNR or withdrawal of care, Hospice)? DNR status @ -no What co-morbidities impacted this encounter? (DM, HTN, Smoking, COPD, CAD, Cancer, CVA, ARF, Chemo, Hep., AIDS, mental health diagnosis, sleep apnea, morbid obesity)? @ -none Was patient admitted / discharged? Hospital course, mention meds given and route, prescriptions, significant lab abnormalities, going to OR and other pertinent info. @ - 34 female abdominal pain nausea vomiting intractable will admit for further symptom control Admitted intractable nausea vomiting yeah Undiagnosed new problem with uncertain prognosis? @ -no Drug Therapy requiring intensive monitoring for toxicity (Heparin, Nitro, Insulin, Cardizem)? @ -no Were any procedures done? @ -no Diagnosis/symptom? @ - Acute, or Chronic, or Acute on Chronic? @ -Acute Uncomplicated (without systemic symptoms) or Complicated (systemic symptoms)? @ -Complicated Side effects of treatment? @ -no Exacerbation, Progression, or Severe Exacerbation? @ -exacerbation Poses a threat to life or bodily function? How? (Chest pain, [place], ND, pneumonia, PE, COPD, DKA, ARF, appy, cholecystitis, CVA, Diverticulitis, Homicidal, Suicidal, threat to staff... and all critical care pts) @ -no Reevaluation #5: Differential Abdominal Pain Women: Appendicitis, Cholecystitis, diverticulosis, ischemic bowel, pancreatitis, hepatitis, UTI, gastroenteritis, AAA, incarcerated hernia, bowel obstruction, constipation, inflammatory bowel, hepatitis, peptic ulcer disease, splenic infarction, perforated viscus, vulvitis, ovarian torsion, PID, kidney stone, placenta abruption, this is not meant to be an all-inclusive list - Consultations Consultation #1: Spoke with Dr. Molina who agrees to admit this patient Medical Decision Making - Medical Decision Making 34 female abdominal pain nausea vomiting intractable will admit for further symptom control - Lab Data Result diagrams: 09/18/24 06:38 09/18/24 06:38 Lab Results 09/16/24 09/16/24 09/16/24 Range/Units 16:45 17:39 17:39 WBC 10.8 H (3.8-10.6) k/uL RBC 3.63 L (3.80-5.40) m/uL Hgb 10.7 L (11.4-16.0) gm/dL Hct 33.0 L (34.0-46.0) % MCV 90.9 (80.0-100.0) fL MCH 29.6 (25.0-35.0) pg MCHC 32.6 (31.0-37.0) g/dL RDW 17.0 H (11.5-15.5) % Plt Count 214 (150-450) k/uL MPV 9.7 Neutrophils % 76 % Lymphocytes % 18 % Monocytes % 4 % Eosinophils % 1 % Basophils % 0 % Neutrophils # 8.2 H (1.3-7.7) k/uL Lymphocytes # 2.0 (1.0-4.8) k/uL Monocytes # 0.4 (0-1.0) k/uL Eosinophils # 0.1 (0-0.7) k/uL Basophils # 0.0 (0-0.2) k/uL Hypochromasia Moderate Anisocytosis Slight PT 12.2 (10.0-12.5) sec INR 1.1 (<1.2) APTT 26.1 (22.0-30.0) sec Sodium (137-145) mmol/L Potassium (3.5-5.1) mmol/L Chloride (98-107) mmol/L Carbon Dioxide (22-30) mmol/L Anion Gap mmol/L BUN (7-17) mg/dL Creatinine (0.52-1.04) mg/dL Est GFR (CKD-EPI)AfAm (>60 ml/min/1.73 sqM) Est GFR (CKD-EPI)NonAf (>60 ml/min/1.73 sqM) Glucose (74-99) mg/dL Plasma Lactic Acid Case (0.7-2.0) mmol/L Calcium (8.4-10.2) mg/dL Phosphorus (2.5-4.5) mg/dL Magnesium (1.6-2.3) mg/dL Total Bilirubin (0.2-1.3) mg/dL AST (14-36) U/L ALT (4-34) U/L Alkaline Phosphatase (38-126) U/L Troponin I (0.000-0.034) ng/mL Total Protein (6.3-8.2) g/dL Albumin (3.5-5.0) g/dL Lipase (23-300) U/L Urine Color Yellow Urine Appearance Cloudy H (Clear) Urine pH 6.0 (5.0-8.0) Ur Specific [place] 1.021 (1.001-1.035) Urine Protein 1+ H (Negative) Urine Glucose (UA) Negative (Negative) Urine Ketones 3+ H (Negative) Urine Blood Trace H (Negative) Urine Nitrite Negative (Negative) Urine Bilirubin Negative (Negative) Urine Urobilinogen 2.0 (<2.0) mg/dL Ur Leukocyte Esterase Negative (Negative) Urine RBC 7 H (0-5) /hpf Urine WBC 7 H (0-5) /hpf Ur Squamous Epith Cells 7 H (0-4) /hpf Hyaline Casts 9 H (0-2) /lpf Urine Mucus Many H (None) /hpf Urine Opiates Screen Not Detected (NotDetected) Ur Oxycodone Screen Not Detected (NotDetected) Urine Methadone Screen Not Detected (NotDetected) Ur Barbiturates Screen Not Detected (NotDetected) U Tricyclic Antidepress Detected H (NotDetected) Ur Phencyclidine Scrn Not Detected (NotDetected) Ur Amphetamines Screen Not Detected (NotDetected) U Methamphetamines Scrn Not Detected (NotDetected) U Benzodiazepines Scrn Detected H (NotDetected) Urine Cocaine Screen Not Detected (NotDetected) U Marijuana (THC) Screen Not Detected (NotDetected) Serum Alcohol mg/dL 09/16/24 09/16/24 09/16/24 Range/Units 17:39 17:39 17:39 WBC (3.8-10.6) k/uL RBC (3.80-5.40) m/uL Hgb (11.4-16.0) gm/dL Hct (34.0-46.0) % MCV (80.0-100.0) fL MCH (25.0-35.0) pg MCHC (31.0-37.0) g/dL RDW (11.5-15.5) % Plt Count (150-450) k/uL MPV Neutrophils % % Lymphocytes % % Monocytes % % Eosinophils % % Basophils % % Neutrophils # (1.3-7.7) k/uL Lymphocytes # (1.0-4.8) k/uL Monocytes # (0-1.0) k/uL Eosinophils # (0-0.7) k/uL Basophils # (0-0.2) k/uL Hypochromasia Anisocytosis PT (10.0-12.5) sec INR (<1.2) APTT (22.0-30.0) sec Sodium 138 (137-145) mmol/L Potassium 3.2 L (3.5-5.1) mmol/L Chloride 104 (98-107) mmol/L Carbon Dioxide 26 (22-30) mmol/L Anion Gap 8 mmol/L BUN <2 L (7-17) mg/dL Creatinine 0.53 (0.52-1.04) mg/dL Est GFR (CKD-EPI)AfAm >90 (>60 ml/min/1.73 sqM) Est GFR (CKD-EPI)NonAf >90 (>60 ml/min/1.73 sqM) Glucose 78 (74-99) mg/dL Plasma Lactic Acid Case 0.8 (0.7-2.0) mmol/L Calcium 8.8 (8.4-10.2) mg/dL Phosphorus 3.3 (2.5-4.5) mg/dL Magnesium 1.5 L (1.6-2.3) mg/dL Total Bilirubin 0.4 (0.2-1.3) mg/dL AST 25 (14-36) U/L ALT 10 (4-34) U/L Alkaline Phosphatase 42 (38-126) U/L Troponin I <0.012 (0.000-0.034) ng/mL Total Protein 5.6 L (6.3-8.2) g/dL Albumin 2.9 L (3.5-5.0) g/dL Lipase 123 (23-300) U/L Urine Color Urine Appearance (Clear) Urine pH (5.0-8.0) Ur Specific [place] (1.001-1.035) Urine Protein (Negative) Urine Glucose (UA) (Negative) Urine Ketones (Negative) Urine Blood (Negative) Urine Nitrite (Negative) Urine Bilirubin (Negative) Urine Urobilinogen (<2.0) mg/dL Ur Leukocyte Esterase (Negative) Urine RBC (0-5) /hpf Urine WBC (0-5) /hpf Ur Squamous Epith Cells (0-4) /hpf Hyaline Casts (0-2) /lpf Urine Mucus (None) /hpf Urine Opiates Screen (NotDetected) Ur Oxycodone Screen (NotDetected) Urine Methadone Screen (NotDetected) Ur Barbiturates Screen (NotDetected) U Tricyclic Antidepress (NotDetected) Ur Phencyclidine Scrn (NotDetected) Ur Amphetamines Screen (NotDetected) U Methamphetamines Scrn (NotDetected) U Benzodiazepines Scrn (NotDetected) Urine Cocaine Screen (NotDetected) U Marijuana (THC) Screen (NotDetected) Serum Alcohol <10 mg/dL - EKG Data -: EKG Interpreted by Me (EKG sinus 91 NM 181 QRS 77 QTc 433) - Radiology Data Radiology results: report reviewed (CT abdomen pelvis is negative for acute disease), image reviewed Disposition Clinical Impression: Chest pain, Abdominal pain, Epigastric pain, Intractable abdominal pain, Intractable nausea and vomiting Disposition: ADMITTED IP TO THIS [facility] Condition: Fair Is patient prescribed a controlled substance at d/c from ED?: No Time of Disposition: 19:30
[2024-09-16 17:38] LABS: Appearance,Urine Cloudy (Clear); Bilirubin,Urine Negative (Negative); Blood,Urine Trace (Negative); Color,Urine Yellow; Glucose,Urine (UA) Negative (Negative); Hyaline Casts,Urine 9 /lpf (0-2); Leukocyte Esterase,Urine Negative (Negative); Mucus,Urine Many /hpf; Nitrite,Urine Negative (Negative); Protein,Urine 1+ (Negative); RBC,Urine 7 /hpf (0-5); Specific Gravity,Urine 1.021 (1.001-1.035); Squamous Epithelial Cell,Urine 7 /hpf (0-4); WBC,Urine 7 /hpf (0-5)
[2024-09-16] MEDS: SODIUM CHLORIDE 0.9% 1,000 ML IV STA (17:39)
[2024-09-16] MEDS: ONDANSETRON 4 MG/2 ML VIAL IVP STA (17:39)
[2024-09-16 17:42] LABS: Ketones,Urine 3+ (Negative)
[2024-09-16] MEDS: HYDROmorphone 1 MG/ML 1 ML SYRINGE IVP STA ×2 (17:43→20:21)
[2024-09-16 17:53] LABS: Anisocytosis Slight; Basophils % (A) 0 %; Eosinophils # (A) 0.1 k/uL (0-0.7); Eosinophils % (A) 1 %; HGB 10.7 gm/dL (11.4-16.0); Hypochromasia Moderate; Lymphocytes % (A) 18 %; MCH 29.6 pg (25.0-35.0); MCHC 32.6 g/dL (31.0-37.0); MCV 90.9 fL (80.0-100.0); Mean Platelet Volume 9.7; Monocytes # (A) 0.4 k/uL (0-1.0); Monocytes % (A) 4 %; Neutrophils # (A) 8.2 k/uL (1.3-7.7); Neutrophils % (A) 76 %; Platelet Count 214 k/uL (150-450); RBC 3.63 m/uL (3.80-5.40); WBC 10.8 k/uL (3.8-10.6)
[2024-09-16 18:05] LABS: Amphetamine Screen,Urine Not Detected (NotDetected); Barbiturate Screen,Urine Not Detected (NotDetected); Benzodiazepines Screen,Urine Detected (NotDetected); Cocaine Screen,Urine Not Detected (NotDetected); Methadone Screen, Urine Not Detected (NotDetected); Opiate Screen,Urine Not Detected (NotDetected); Oxycodone Screen, Urine Not Detected (NotDetected); Phencyclidine Screen,Urine Not Detected (NotDetected); Tricyclic Antidepressant,Urine Detected (NotDetected); Urn Cannabinoid Scrn Not Detected (NotDetected)
[2024-09-16 18:12] LABS: INR 1.1 (<1.2); Partial Thromboplastin Time 26.1 sec (22.0-30.0); Prothrombin Time 12.2 sec (10.0-12.5)
[2024-09-16 18:14] LABS: ALT 10 U/L (4-34); African American GFR (CKD) >90 (>60 ml/min/1.73 sqM); Albumin 2.9 g/dL (3.5-5.0); Alcohol <10 mg/dL; Anion Gap 8 mmol/L; Blood Urea Nitrogen <2 mg/dL (7-17); Calcium 8.8 mg/dL (8.4-10.2); Carbon Dioxide 26 mmol/L (22-30); Chloride 104 mmol/L (98-107); Glucose 78 mg/dL (74-99); Lipase 123 U/L (23-300); Non-African American GFR(CKD) >90 (>60 ml/min/1.73 sqM); Sodium 138 mmol/L (137-145); Total Bilirubin 0.4 mg/dL (0.2-1.3); Total Protein 5.6 g/dL (6.3-8.2)
[2024-09-16 18:27] LABS: AST 25 U/L (14-36); Alkaline Phosphatase 42 U/L (38-126); Magnesium 1.5 mg/dL (1.6-2.3); Phosphorus 3.3 mg/dL (2.5-4.5); Potassium 3.2 mmol/L (3.5-5.1)
--- NOTE | 2024-09-16 18:40 | CT ---
EXAMINATION TYPE: CT abdomen pelvis w con DATE OF EXAM: 09/16/2024 6:14 PM COMPARISON: Recent CT abdomen/pelvis study dated 09/07/2024. CLINICAL INDICATION: Female, 34 years old with history of pain; pt states she has stomach pain and n/ v/d x 3 days TECHNIQUE: Axial CT abdomen pelvis w con;Sagittal and coronal reformats were created on a separate w orkstation. Contrast used:100cc mL of Isovue 300 with IV Contrast, (none if empty) Oral contrast used: without Oral Contrast (none if empty) CT DLP: 741.9 mGycm, Automated exposure control for dose reduction was used. FINDINGS: LOWER CHEST: Unremarkable ABDOMEN LIVER: Unremarkable GALLBLADDER AND BILE DUCTS: The gallbladder is surgically absent. PANCREAS: Unremarkable. SPLEEN: Unremarkable. ADRENAL GLANDS: Unremarkable. KIDNEYS AND URETERS: No evidence of hydronephrosis or renal calculus. The ureters are unremarkable. PELVIS BLADDER: No evidence for wall thickening or mass given limitations of exam. REPRODUCTIVE: Uterus appears unremarkable. New indeterminate multiseptated cystic lesion in the right adnexa measuring 3.8 x 7.2 cm (axial series 3 image 66). There is possible layering high density wit hin the posterior margin of this cystic lesion. No adjacent fat stranding to suggest tubo-ovarian abs cess or pelvic inflammatory disease. Follicular changes of the left ovary. ABDOMEN & PELVIS STOMACH AND BOWEL: Postsurgical changes compatible with recent Glenn-en-Y gastric bypass. No evidence of small bowel obstruction. Liquid stool in the cecum, which can be associated with diarrhea. PERITONEUM/RETROPERITONEUM: No evidence of pneumoperitoneum or free fluid. VASCULATURE: No evidence of aortic aneurysm. MUSCULOSKELETAL: No acute osseous abnormalities LYMPH NODES: No gross evidence for lymphadenopathy. SOFT TISSUE/ABDOMINAL WALL: Unremarkable IMPRESSION: 1. No acute abnormality in the abdomen/pelvis or CT findings to explain reported symptoms. 2. Indeterminate septated cystic lesion in the right adnexa measuring 7.2 x 3.8 cm as described abov e, new from recent study dated 09/07/2024. Recommend outpatient pelvic ultrasound study for further e valuation. [facility], Workstation: [id number], 09/16/2024 6:38 PM
[2024-09-16] MEDS: MAGNESIUM OXIDE 400 MG TAB PO STA ×2 (18:58)
[2024-09-16] MEDS: POTASSIUM CHLORIDE 20 MEQ in WATER FOR INJECTION 1 100ML.BAG IVPB STA (18:59)
[2024-09-16] MEDS: MAGNESIUM SULFATE-D5W PMX 1 GM in DEXTROSE/WATER 1 100ML.BAG IVPB SCH (18:59)
[2024-09-16] MEDS ORDERED: NALOXONE 0.4 MG/ML 1 ML VIAL IV PRN (19:51)
[2024-09-16] MEDS: POTASSIUM BICARBONATE/CIT AC 20 MEQ TABLET.EFF PO ONE (20:16)
[2024-09-16] MEDS: SODIUM CHLORIDE 0.9% 1,000 ML IV SCH (20:18)
[2024-09-16] MEDS: diphenhydrAMINE 50 MG/ML 1 ML VIAL IVP STA (20:21)
[2024-09-16] MEDS: DEXTROSE 5%-0.45% NACL 1,000 ML IV ONE (23:23)
[2024-09-16] MEDS: traZODone HCL 100 MG TAB PO SCH (23:32)
[2024-09-16] MEDS: QUEtiapine 100 MG TAB PO SCH (23:32)
[2024-09-16] MEDS: ASENAPINE MALEATE 10 MG PO SCH (23:34)
[2024-09-17] MEDS: diphenhydrAMINE 50 MG/ML 1 ML VIAL IVP STA (01:17)
[2024-09-17] MEDS: HYDROmorphone 1 MG/ML 1 ML SYRINGE IVP PRN (02:09)
--- NOTE | 2024-09-17 05:00 | HP ---
HISTORY AND PHYSICAL HISTORY OF PRESENT ILLNESS: A 34-year-old female, status post gastric bypass with revisions and multiple esophageal dilations. She had nausea, vomiting, anorexia, complaining of abdominal pain severe, which is new. No fevers, no blood noted in her vomit or stool. HOME MEDICATIONS: 1. Saphris 10 mg at night. 2. Symbicort 2 puffs b.i.d. 3. Ativan 1 mg b.i.d. 4. Seroquel 100 at night. 5. Spiriva 2 puffs daily. 6. Omeprazole 40 b.i.d. 7. Zofran 4 mg b.i.d. 8. Nicotine patch 21 mg daily. 9. 5 mg q.12. REVIEW OF SYSTEMS: 14-point review of systems otherwise negative. PAST MEDICAL HISTORY: As mentioned above, history of PE, status post gastric bypass, asthma, COPD, diabetes mellitus, hypertension, and sleep apnea. FAMILY HISTORY: Father with hypertension and arthritis. PHYSICAL EXAMINATION: GENERAL: Obese female, no acute distress. HEENT: Pupils are equally round and reactive. LUNGS: Transmitted upper airway sounds. CARDIOVASCULAR: S1 and S2. GI: Soft, normal bowel sounds. EXTREMITIES: No cyanosis, clubbing, edema. PSYCHIATRIC: Fair mood and affect. SKIN: Warm and dry. Acute abdominal pain. New onset of different kind of abdominal pain. I will admit this patient. Consult Surgery. Hemoglobin is 10.7, white count of 10.8. No one talked to me to admit the patient, but she is admitted anyway. Troponin negative. Chest pain, abdominal pain, epigastric pain. Get consult with Surgery and GI. Prognosis guarded. MMODL / IJN: [id number] /
--- NOTE | 2024-09-17 07:35 | US ---
EXAMINATION TYPE: US transvaginal plus Dopplers DATE OF EXAM: 09/17/2024 COMPARISON: CT: 09/16/24 CLINICAL INDICATION: Female, 34 years old with history of ovarian cyst; cyst. TECHNIQUE: Transvaginal (TV). Doppler imaging: Color Doppler Images were obtained. Spectral doppler images were obtained. FINDINGS: Date of LMP: ablation 2 years ago EXAM MEASUREMENTS: Uterus: 7.8 x 4.3 x 4.1 cm Endometrial Stripe: 0.5 cm Right Ovary: 7.4 x 4.5 x 4.1 cm Left Ovary: 2.2 x 2.2 x 1.9 cm 1. Uterus: Anteverted and otherwise appears wnl, limited due to bladder being distended 2. Endometrium: wnl 3. Right Ovary: 2 large cystic areas seen. Largest measuring 4.0 x 4.2 x 3.7cm both show internal re ticulations and no internal vascularity. 4. Left Ovary: Thick-walled cystic area seen measuring 1.6 x 1.2 x 1.2cm, likely corpus luteum Spectral, color and waveform doppler imaging shows good arterial and venous flow within the ovaries ; there is no evidence for ovarian torsion. 5. Bilateral Adnexa: wnl 6. Posterior cul-de-sac: Mild free fluid seen extending into the right adnexa. IMPRESSION: 1. 2 complex cystic lesions in the right ovary showing internal reticulations, favored to represent h emorrhagic cysts measuring up to 4.2 cm. Recommend follow-up ultrasound in 6-8 weeks to ensure involu tion. 2. Additionally, suspect 1.6 cm corpus luteum on the left. 3. No sonographic evidence for ovarian torsion by Doppler criteria at this time. 4. Mild pelvic and right adnexal free fluid likely relating to hemorrhagic cysts. [facility], Workstation: [id number], 09/17/2024 7:33 AM
[2024-09-17] MEDS ORDERED: PANTOPRAZOLE 40 MG/10 ML VIAL IV SCH (09:00)
[2024-09-17] MEDS ORDERED: PANTOPRAZOLE 40 MG TABLET PO SCH (09:00)
[2024-09-17] MEDS: LORazepam 1 MG TAB PO PRN (09:24)
[2024-09-17] MEDS: ONDANSETRON 4 MG/2 ML VIAL IVP PRN (09:24)
[2024-09-17] MEDS: MAGNESIUM OXIDE 400 MG TAB PO SCH (09:26)
[2024-09-17] MEDS: POTASSIUM BICARBONATE/CIT AC 20 MEQ TABLET.EFF PO SCH (09:27)
[2024-09-17] MEDS: IPRATROPIUM 0.5 MG/2.5 ML NEBU INHALATION SCH (09:27)
[2024-09-17] MEDS: NICOTINE 21MG/24HR PATCH TRANSDERM SCH (09:27)
[2024-09-17] MEDS: PANTOPRAZOLE 40 MG/10 ML VIAL IVP SCH (09:27)
[2024-09-17] MEDS: SCOPOLAMINE 1 MG/72 HR PATCH TRANSDERM SCH (09:28)
[2024-09-17 10:41] LABS: Basophils # (A) 0.03 X 10*3/uL (0.00-0.10); Basophils % (A) 0.4 %; Eosinophils # (A) 0.11 X 10*3/uL (0.04-0.35); Eosinophils % (A) 1.4 %; HCT 29.2 % (37.2-46.3); HGB 9.3 g/dL (12.0-15.0); Lymphocytes # (A) 2.41 X 10*3/uL (0.90-5.00); Lymphocytes % (A) 30.5 %; MCH 28.2 pg (27.0-32.0); MCHC 31.8 g/dL (32.0-37.0); MCV 88.5 FL (80.0-97.0); Mean Platelet Volume 13.1 FL (9.5-12.2); Monocytes % (A) 8.9 %; NRBC Per 100 WBC 0 X 10*3/uL (0.00-0.01); Neutrophils # (A) 4.63 X 10*3/uL (1.80-7.70); Neutrophils % (A) 58.7 %; Platelet Count 197 X 10*3/uL (140-440); RDW 17.6 % (11.5-14.5); WBC 7.89 X 10*3/uL (4.50-10.00)
[2024-09-17 10:47] LABS: ALT 7 U/L (8-44); AST 18 U/L (13-35); Albumin 2.8 g/dL (3.8-4.9); Alkaline Phosphatase 50 U/L (41-126); BUN/Creat Ratio <8.75 Ratio (12.00-20.00); Blood Urea Nitrogen <3.5 mg/dL (9.0-27.0); Chloride 105 mmol/L (96-109); Glucose 91 mg/dL (70-110); Magnesium 1.8 mg/dL (1.5-2.4); Phosphorus 3.3 mg/dL (2.4-5.1); Sodium 141 mmol/L (135-145); Total Bilirubin <0.2 mg/dL (0.3-1.2); Total Protein 4.8 g/dL (6.2-8.2)
[2024-09-17] MEDS: MAGNESIUM SULFATE-D5W PMX 1 GM in DEXTROSE/WATER 1 100ML.BAG IVPB SCH (13:53)
[2024-09-17] MEDS: THIAMINE 100 MG in SODIUM CHLORIDE 0.9% 50 ML IVPB SCH (15:14)
--- NOTE | 2024-09-17 16:04 | P.CONS ---
History of Present Illness - Reason for Consult Consult date: 09/17/24 Nausea vomiting, abdominal pain Requesting physician: Justin Molina - Chief Complaint Nausea and vomiting - History of Present Illness This is a pleasant 34-year-old -I[place] female who presented to the emergency department with complaints of nausea vomiting and epigastric pain. Patient has chronic nausea vomiting and epigastric pain since she has undergone a gastric sleeve that was done in December 2023 she was sent to [facility] where she had undergone a revision and has undergone a Glenn-en-Y in May 2024. States about a month ago she had upper endoscopy with dilation. She was just recently here and hospitalized for complaints of abdominal pain with nausea and vomiting. Past medical history includes GERD, PE, sleep apnea iron deficiency anemia, anxiety and bipolar depression. Patient was just hospitalized from 09/06/2024 to 09/13/24 and returned 3 days later with similar complaints. During her previous hospitalization she was followed by general surgery and had an upper GI that reported post Glenn-en-Y gastric bypass. No esophageal stricture or hiatal hernia. No obstruction. There appears to be 2 adjacent segments of red blood to have luminal narrowing 1 along the stomach adjacent to the gastrojejunostomy and 1 at the anastomosis., During this hospitalization she had a CT of the abdomen pelvis that shows no acute process t o explain the patient's symptoms. States she last vomited yesterday. Still having some nausea. States she has not followed with [facility] as she does not have transportation to follow-up there. Review of Systems REVIEW OF SYSTEMS: CARDIOPULMONARY: No chest pain or shortness of breath. Gastrointestinal: Abdominal pain, mostly in epigastric region. Nausea and vomit ing. No hematemesis, coffee-ground emesis. No rectal bleeding, or melena. GENITOURINARY: No dysuria or hematuria. MUSCULOSKELETAL: Reports normal range of motion. SKIN: No rashes. No jaundice. ENDOCRINE: No chills, fevers. No excessive weight gain or loss. No polydipsia or polyuria. PSYCHIATRIC: Unremarkable. NEUROLOGY: No change in mental status. Denies dizziness, headache. ENT: Vision unremarkable. CONSTITUTIONAL: No recent weight loss. No fever, chills, night sweats. Past Medical History Past Medical History: GERD/Reflux, Pulmonary Embolus (PE), Sleep Apnea/CPAP/BIPAP Additional Past Medical History / Comment(s): iron defiency anemia, currently getting iron infusions, no cpap used, pulmonary embolism 02/13/24 History of Any Multi-Drug Resistant Organisms: None Reported Past Surgical History: Bariatric Surgery, Section, Cholecystectomy, Tubal Ligation, Uterine Ablation Additional Past Surgical History / Comment(s): 2008 AND 2015 (c/s) and 2010 (cholecyst). 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 gastric bypass 06/11/24 Past Anesthesia/Blood Transfusion Reactions: No Reported Reaction Past Psychological History: Anxiety, Bipolar, Depression Smoking Status: Former smoker Past Alcohol Use History: None Reported Past Drug Use History: None Reported - Past Family History Mother Family Medical History: Asthma, COPD, Diabetes Mellitus, Hypertension Additional Family Medical History / Comment(s): depression, anxiety, sleep apnea, Father Family Medical History: Hypertension Additional Family Medical History / Comment(s): arthritis Medications and Allergies Home Medications Medication Instructions Recorded Confirmed Type Asenapine Maleate [Saphris] 10 mg SL HS 07/12/24 09/16/24 History Budesonide/Formoterol Fumarate 2 puff INHALATION RT-BID 07/12/24 09/16/24 History [Symbicort 160-4.5 Mcg Inhaler] LORazepam [Ativan] 1 mg PO BID PRN 07/12/24 09/16/24 History QUEtiapine [SEROquel] 100 mg PO HS 07/12/24 09/16/24 History Tiotropium 2.5 Mcg/Puff [Spiriva 2 puff INHALATION RT-DAILY 07/12/24 09/16/24 History Respimat 2.5 Mcg] traZODone HCL [Desyrel] 100 mg PO HS 07/12/24 09/16/24 History Omeprazole [PriLOSEC] 40 mg PO BID 07/26/24 09/16/24 History Ondansetron [Zofran] 4 mg PO BID PRN 07/26/24 09/16/24 History Nicotine 21Mg/24Hr Patch [Habitrol] 1 patch TRANSDERM DAILY 09/07/24 09/16/24 History oxyCODONE HCL [OxyIR] 5 mg PO Q12H 09/07/24 09/16/24 History Amoxic-Pot Clav 875-125Mg 1 tab PO BID 7 Days #14 tab 09/11/24 09/16/24 Rx [Augmentin 555-468] Allergies Allergy/AdvReac Type Severity Reaction Status Date / Time latex Allergy Rash/Hives Verified 09/16/24 19:36 morphine AdvReac Itching Verified 09/16/24 19:36 Physical Exam Vitals: Vital Signs Temp Pulse Pulse Resp BP BP Pulse Ox 09/17/24 01:58 98.5 F 93 18 139/93 98 09/16/24 22:41 97.5 F L 88 16 139/96 99 09/16/24 20:29 98.2 F 91 15 143/100 99 09/16/24 19:09 98.2 F 102 H 18 152/104 100 09/16/24 17:41 99.2 F 101 H 16 144/92 98 09/16/24 16:16 99.2 F 122 H 18 141/89 98 Intake and Output 09/16/24 09/17/24 09/17/24 22:59 06:59 14:59 Other: # Voids 1 Weight 78.471 kg General appearance: The patient is alert, oriented, appears in no acute distress. HET: Head is normocephalic and atraumatic. Conjunctiva pink. Sclera anicteric. Neck: Supple without lymphadenopathy. Trachea midline. Heart: Regular. Lungs: Equal expansion, normal respiratory effort. Abdomen: Soft, epigastric tenderness, nondistended. Skin: No rashes. No jaundice. Extremities: Normal skin color and turgor. No pedal edema. Neurological: No focal deficits. Alert and oriented x3. Results CBC & Chem 7: 09/17/24 07:00 09/17/24 07:00 Labs: Abnormal Lab Results - Last 24 Hours (Table) 09/16/24 09/16/24 09/16/24 Range/Units 16:45 17:39 17:39 WBC 10.8 H (3.8-10.6) k/uL RBC 3.63 L (3.80-5.40) m/uL Hgb 10.7 L (11.4-16.0) gm/dL Hct 33.0 L (34.0-46.0) % RDW 17.0 H (11.5-15.5) % Neutrophils # 8.2 H (1.3-7.7) k/uL Potassium 3.2 L (3.5-5.1) mmol/L BUN <2 L (7-17) mg/dL Magnesium 1.5 L (1.6-2.3) mg/dL Total Protein 5.6 L (6.3-8.2) g/dL Albumin 2.9 L (3.5-5.0) g/dL Urine Appearance Cloudy H (Clear) Urine Protein 1+ H (Negative) Urine Ketones 3+ H (Negative) Urine Blood Trace H (Negative) Urine RBC 7 H (0-5) /hpf Urine WBC 7 H (0-5) /hpf Ur Squamous Epith Cells 7 H (0-4) /hpf Hyaline Casts 9 H (0-2) /lpf Urine Mucus Many H (None) /hpf U Tricyclic Antidepress Detected H (NotDetected) U Benzodiazepines Scrn Detected H (NotDetected) Comments: CT abdomen pelvis with contrast reports no acute abnormality in the abdomen/pelvis or CT findings to explain reported symptoms. Indeterminant septated cystic lesion in the right adnexa measuring 7.2 x 3.8 cm as described above. New from recent study dated 09/07/2024. Recommend outpatient pelvic ultrasound study to further evaluation Assessment and Plan (1) Nausea and vomiting Narrative/Plan: 34-year-old female with history of chronic nausea and vomiting and epigastric pain status post sleeve gastrectomy followed by revision and Glenn-en-Y bypass who was recently hospitalized every admitted for nausea vomiting and abdominal pain. Need to consider possible anastomotic stricture that needs dilation. Patient recently had upper GI that showed no esophageal stricture but possible narrowing at anastomotic site. Will plan on upper endoscopy and continue symptomatic treatment. Current Visit: No Status: Acute Code(s): R11.2 - NAUSEA WITH VOMITING, UNSPECIFIED SNOMED Code(s): 94190290 (2) Epigastric pain Current Visit: Yes Status: Acute Code(s): R10.13 - EPIGASTRIC PAIN SNOMED Code(s): 76109669 (3) History of Glenn-en-Y gastric bypass Current Visit: Yes Status: Acute Code(s): Z98.84 - BARIATRIC SURGERY STATUS SNOMED Code(s): 655607937 Plan: 1. Continue symptomatic and supportive care 2. Diet as tolerated, n.p.o. after midnight 3. Continue antiemetics, scopolamine patch added 4. Protonix 40 mg daily 5. Continue with recommendations from general surgery 6. Will plan for upper endoscopy tomorrow with possible dilation Thank you for this consultation, we will continue to follow. Dr. Roxanne Rascon I agree with the dictator's note, documented as a scribe by Madhavi SMITH.
--- NOTE | 2024-09-17 16:05 | P.GSCN ---
History of Present Illness Consult date: 09/17/24 History of present illness: CHIEF COMPLAINT: Intractable nausea and vomiting HISTORY OF PRESENT ILLNESS: The patient is a 34-year-old female who is status post revision from gastric sleeve to gastric bypass by Dr. Coker at [facility] for intractable nausea and vomiting. She has chronic history of intractable nausea and vomiting including multiple hospitalizations several times a month. Patient has not followed up with her bariatric surgeon at [facility] since her procedure. Additionally, patient takes multiple medications for her bipolar disorder including insomnia which includes Seroquel. General surgery is consulted for intractable nausea and vomiting. Patient has baseline history of chronic pain seeking behavior with narcotics as well. Patient reports she has been taking her antipsychotic and Seroquel medications without adjustment of doses since her bariatric procedures. PAST MEDICAL HISTORY: See list and reviewed PAST SURGICAL HISTORY: See list and reviewed MEDICATIONS: See list and reviewed ALLERGIES: See list and reviewed SOCIAL HISTORY: See list and reviewed FAMILY HISTORY: See list and reviewed REVIEW OF ORGAN SYSTEMS: CONSTITUTIONAL: No fevers or chills. Intentional weight loss with gastric sleeve/gastric bypass EYES: Denies any trouble with vision. No glasses. HEENT: No difficulties with hearing. No nosebleeds. No difficulty swallowing. RESPIRATORY: Past pulmonary embolism. Has chronic obstructive pulmonary disease. Has obstructive sleep apnea. CARDIOVASCULAR: Denies any chest pain, palpitations, or recent heart attacks. GASTROINTESTINAL: Has intractable nausea. Conversion from sleeve gastrectomy to bypass done at [facility] June 11, 2024. Has gastroesophageal reflux disease. GENITOURINARY: Denies any blood in urine or increased urinary frequency. NEUROLOGICAL: Denies any numbness or tingling along the distal extremities. No seizure disorders or headaches. MUSCULOSKELETAL: Has back pain, stiffness or joint arthritis. SKIN: No current skin cancer. No rash. PSYCHIATRIC: Has generalized anxiety disorder. Has bipolar disorder. Has depressive disorder. ENDOCRINE: Denies current thyroid disorders. Denies any blood sugar glucose intolerance. HEME/LYMPHATIC: Denies any lumps and bumps around the neck. Past pulmonary embolism. ALLERGY/IMMUNOLOGY: No immunoglobulin therapy. No immune deficiencies. BREAST: Denies current breast lumps, pain or nipple discharge. PHYSICAL EXAM: VITALS: Reviewed CONSTITUTIONAL: Well developed and in no acute distress. EYES: Conjuctivae without sclera icterus. Extraocular movements grossly intact. HEAD, EARS, NOSE, THROAT: Moist buccal mucosa. Head is atraumatic, normocephalic. Hears conversational speech. No nasal drainage. NECK: Supple. No JV distention. No thyroidomegaly. RESPIRATORY: Non-labored respirations and equal bilateral excursions. No gross wheezes. CARDIOVASCULAR: Palpable 2+ radial pulses. ABDOMEN: No peritonitis. Nontender. LYMPH: No neck lymphadenopathy. MUSCULOSKELETAL: No clubbing cyanosis or edema SKIN: Warm and well perfused with good skin turgor. NEUROLOGIC: Cranial nerves II through XII grossly intact. No focal or lateralizing signs. PSYCH: Appropriate affect. Alert and oriented to person, place and time. Displays appropriate insight. CLINCAL LABS: Reviewed. WBC on admission mildly elevated 10.8 now down to normal today. Potassium level 3.2-3.0, hypokalemia. Magnesium low 1.5 on admission. Vitamin A level severely depressed less than 13. Vitamin D within normal limits. Vitamin B6 severely depressed. IMAGING: Independently reviewed. CT of the abdomen pelvis independently reviewed demonstrates no bowel obstruction or mesenteric swirl for internal hernia. Large fluidlike mass within the pelvis identified of the right hemipelvis. This is my independent interpretation. RADIOLOGY: Report reviewed. Right adnexal lesion over 7 cm. RECORDS: previous old records reviewed with multiple hospitalizations for nausea and abdominal pain. ASSESSMENT: 1. Intractable nausea and vomiting. 2. Right adnexal cystic mass 3. History of gastric bypass 4. Hypokalemia 5. Vitamin A deficiency 6. Vitamin B6 deficiency 7. Hypomagnesia PLAN: 1. She has multiple events of intractable nausea and vomiting despite multiple surgical interventions. Overall, presentation highly suspicious for drug induced intractable nausea and vomiting as she has not had any titration of her Seroquel or bipolar meds which have pre-existing adverse reaction of intractable nausea and vomiting, abdominal pain, upset stomach as side effect profile. 2. No surgical intervention needed. 3. 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 4. Correction of hypokalemia and hypomagnesia including vitamin A and B6 deficiency advised. 5. May benefit from gynecological assessment for a large 7 cm ovarian cyst 6. IV fluid hydration Thank you for this kind consultation. Past Medical History Past Medical History: GERD/Reflux, Pulmonary Embolus (PE), Sleep Apnea/CPAP/BIPAP Additional Past Medical History / Comment(s): iron defiency anemia, currently getting iron infusions, no cpap used, pulmonary embolism 02/13/24 History of Any Multi-Drug Resistant Organisms: None Reported Past Surgical History: Bariatric Surgery, Section, Cholecystectomy, Tubal Ligation, Uterine Ablation Additional Past Surgical History / Comment(s): 2008 AND 2015 (c/s) and 2010 (cholecyst). 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 gastric bypass 06/11/24 Past Anesthesia/Blood Transfusion Reactions: No Reported Reaction Past Psychological History: Anxiety, Bipolar, Depression Smoking Status: Former smoker Past Alcohol Use History: None Reported Past Drug Use History: None Reported - Past Family History Mother Family Medical History: Asthma, COPD, Diabetes Mellitus, Hypertension Additional Family Medical History / Comment(s): depression, anxiety, sleep apnea, Father Family Medical History: Hypertension Additional Family Medical History / Comment(s): arthritis Medications and Allergies Home Medications Medication Instructions Recorded Confirmed Type Asenapine Maleate [Saphris] 10 mg SL HS 07/12/24 09/16/24 History Budesonide/Formoterol Fumarate 2 puff INHALATION RT-BID 07/12/24 09/16/24 History [Symbicort 160-4.5 Mcg Inhaler] LORazepam [Ativan] 1 mg PO BID PRN 07/12/24 09/16/24 History QUEtiapine [SEROquel] 100 mg PO HS 07/12/24 09/16/24 History Tiotropium 2.5 Mcg/Puff [Spiriva 2 puff INHALATION RT-DAILY 07/12/24 09/16/24 History Respimat 2.5 Mcg] traZODone HCL [Desyrel] 100 mg PO HS 07/12/24 09/16/24 History Omeprazole [PriLOSEC] 40 mg PO BID 07/26/24 09/16/24 History Ondansetron [Zofran] 4 mg PO BID PRN 07/26/24 09/16/24 History Nicotine 21Mg/24Hr Patch [Habitrol] 1 patch TRANSDERM DAILY 09/07/24 09/16/24 History oxyCODONE HCL [OxyIR] 5 mg PO Q12H 09/07/24 09/16/24 History Amoxic-Pot Clav 875-125Mg 1 tab PO BID 7 Days #14 tab 09/11/24 09/16/24 Rx [Augmentin 875-125] Allergies Allergy/AdvReac Type Severity Reaction Status Date / Time latex Allergy Rash/Hives Verified 09/16/24 19:36 morphine AdvReac Itching Verified 09/16/24 19:36 Surgical - Exam Vital Signs Temp Pulse Resp BP Pulse Ox 99.2 F 122 H 18 141/89 98 09/16/24 16:16 09/16/24 16:16 09/16/24 16:16 09/16/24 16:16 09/16/24 16:16 Results - Labs 09/17/24 07:00 09/17/24 07:00 Abnormal Lab Results - Last 24 Hours (Table) 09/16/24 09/16/24 09/16/24 Range/Units 16:45 17:39 17:39 WBC 10.8 H (3.8-10.6) k/uL RBC 3.63 L (3.80-5.40) m/uL Hgb 10.7 L (11.4-16.0) gm/dL Hct 33.0 L (34.0-46.0) % MCHC (32.0-37.0) g/dL RDW 17.0 H (11.5-15.5) % MPV (9.5-12.2) FL Neutrophils # 8.2 H (1.3-7.7) k/uL Potassium 3.2 L (3.5-5.1) mmol/L BUN <2 L (7-17) mg/dL Creatinine (0.6-1.5) mg/dL BUN/Creatinine Ratio (12.00-20.00) Ratio Calcium (8.7-10.3) mg/dL Magnesium 1.5 L (1.6-2.3) mg/dL Total Bilirubin (0.3-1.2) mg/dL ALT (8-44) U/L Total Protein 5.6 L (6.3-8.2) g/dL Albumin 2.9 L (3.5-5.0) g/dL Albumin/Globulin Ratio (1.60-3.17) Ratio Urine Appearance Cloudy H (Clear) Urine Protein 1+ H (Negative) Urine Ketones 3+ H (Negative) Urine Blood Trace H (Negative) Urine RBC 7 H (0-5) /hpf Urine WBC 7 H (0-5) /hpf Ur Squamous Epith Cells 7 H (0-4) /hpf Hyaline Casts 9 H (0-2) /lpf Urine Mucus Many H (None) /hpf U Tricyclic Antidepress Detected H (NotDetected) U Benzodiazepines Scrn Detected H (NotDetected) 09/17/24 09/17/24 Range/Units 07:00 07:00 WBC (3.8-10.6) k/uL RBC 3.30 L (3.80-5.40) m/uL Hgb 9.3 L (11.4-16.0) gm/dL Hct 29.2 L (34.0-46.0) % MCHC 31.8 L (32.0-37.0) g/dL RDW 17.6 H (11.5-15.5) % MPV 13.1 H (9.5-12.2) FL Neutrophils # (1.3-7.7) k/uL Potassium 3.0 L (3.5-5.1) mmol/L BUN <3.5 L (7-17) mg/dL Creatinine 0.4 L (0.6-1.5) mg/dL BUN/Creatinine Ratio <8.75 L (12.00-20.00) Ratio Calcium 8.0 L (8.7-10.3) mg/dL Magnesium (1.6-2.3) mg/dL Total Bilirubin <0.2 L (0.3-1.2) mg/dL ALT 7 L (8-44) U/L Total Protein 4.8 L (6.3-8.2) g/dL Albumin 2.8 L (3.5-5.0) g/dL Albumin/Globulin Ratio 1.40 L (1.60-3.17) Ratio Urine Appearance (Clear) Urine Protein (Negative) Urine Ketones (Negative) Urine Blood (Negative) Urine RBC (0-5) /hpf Urine WBC (0-5) /hpf Ur Squamous Epith Cells (0-4) /hpf Hyaline Casts (0-2) /lpf Urine Mucus (None) /hpf U Tricyclic Antidepress (NotDetected) U Benzodiazepines Scrn (NotDetected) Diabetes panel 09/16/24 09/17/24 Range/Units 17:39 07:00 Sodium 138 141 (137-145) mmol/L Potassium 3.2 L 3.0 L (3.5-5.1) mmol/L Chloride 104 105 (98-107) mmol/L Carbon Dioxide 26 25.0 (22-30) mmol/L BUN <2 L <3.5 L (7-17) mg/dL Creatinine 0.53 0.4 L (0.52-1.04) mg/dL Glucose 78 91 (74-99) mg/dL Calcium 8.8 8.0 L (8.4-10.2) mg/dL AST 25 18 (14-36) U/L ALT 10 7 L (4-34) U/L Alkaline Phosphatase 42 50 (38-126) U/L Total Protein 5.6 L 4.8 L (6.3-8.2) g/dL Albumin 2.9 L 2.8 L (3.5-5.0) g/dL Calcium panel 09/16/24 09/17/24 Range/Units 17:39 07:00 Calcium 8.8 8.0 L (8.4-10.2) mg/dL Phosphorus 3.3 3.3 (2.5-4.5) mg/dL Albumin 2.9 L 2.8 L (3.5-5.0) g/dL Pituitary panel 09/16/24 09/17/24 Range/Units 17:39 07:00 Sodium 138 141 (137-145) mmol/L Potassium 3.2 L 3.0 L (3.5-5.1) mmol/L Chloride 104 105 (98-107) mmol/L Carbon Dioxide 26 25.0 (22-30) mmol/L BUN <2 L <3.5 L (7-17) mg/dL Creatinine 0.53 0.4 L (0.52-1.04) mg/dL Glucose 78 91 (74-99) mg/dL Calcium 8.8 8.0 L (8.4-10.2) mg/dL Adrenal panel 09/16/24 09/17/24 Range/Units 17:39 07:00 Sodium 138 141 (137-145) mmol/L Potassium 3.2 L 3.0 L (3.5-5.1) mmol/L Chloride 104 105 (98-107) mmol/L Carbon Dioxide 26 25.0 (22-30) mmol/L BUN <2 L <3.5 L (7-17) mg/dL Creatinine 0.53 0.4 L (0.52-1.04) mg/dL Glucose 78 91 (74-99) mg/dL Calcium 8.8 8.0 L (8.4-10.2) mg/dL Total Bilirubin 0.4 <0.2 L (0.2-1.3) mg/dL AST 25 18 (14-36) U/L ALT 10 7 L (4-34) U/L Alkaline Phosphatase 42 50 (38-126) U/L Total Protein 5.6 L 4.8 L (6.3-8.2) g/dL Albumin 2.9 L 2.8 L (3.5-5.0) g/dL
--- NOTE | 2024-09-17 16:32 | P.PAINPG ---
Objective - Vital Signs Vital signs: Vital Signs Temp 97.5 F L 09/17/24 15:11 Pulse 85 09/17/24 15:26 Resp 18 09/17/24 15:11 BP 132/97 09/17/24 15:11 Pulse Ox 97 09/17/24 15:11 FiO2 Intake & Output 09/16/24 09/17/24 09/17/24 18:59 06:59 18:59 Weight 78.471 kg Other: # Voids 1 - Labs CBC & Chem 7: 09/17/24 07:00 09/17/24 07:00 Labs: Abnormal Lab Results - Last 24 Hours (Table) 09/16/24 09/16/24 09/16/24 Range/Units 16:45 17:39 17:39 WBC 10.8 H (3.8-10.6) k/uL RBC 3.63 L (3.80-5.40) m/uL Hgb 10.7 L (11.4-16.0) gm/dL Hct 33.0 L (34.0-46.0) % MCHC (32.0-37.0) g/dL RDW 17.0 H (11.5-15.5) % MPV (9.5-12.2) FL Neutrophils # 8.2 H (1.3-7.7) k/uL Potassium 3.2 L (3.5-5.1) mmol/L BUN <2 L (7-17) mg/dL Creatinine (0.6-1.5) mg/dL BUN/Creatinine Ratio (12.00-20.00) Ratio Calcium (8.7-10.3) mg/dL Magnesium 1.5 L (1.6-2.3) mg/dL Total Bilirubin (0.3-1.2) mg/dL ALT (8-44) U/L Total Protein 5.6 L (6.3-8.2) g/dL Albumin 2.9 L (3.5-5.0) g/dL Albumin/Globulin Ratio (1.60-3.17) Ratio Urine Appearance Cloudy H (Clear) Urine Protein 1+ H (Negative) Urine Ketones 3+ H (Negative) Urine Blood Trace H (Negative) Urine RBC 7 H (0-5) /hpf Urine WBC 7 H (0-5) /hpf Ur Squamous Epith Cells 7 H (0-4) /hpf Hyaline Casts 9 H (0-2) /lpf Urine Mucus Many H (None) /hpf U Tricyclic Antidepress Detected H (NotDetected) U Benzodiazepines Scrn Detected H (NotDetected) 09/17/24 09/17/24 Range/Units 07:00 07:00 WBC (3.8-10.6) k/uL RBC 3.30 L (3.80-5.40) m/uL Hgb 9.3 L (11.4-16.0) gm/dL Hct 29.2 L (34.0-46.0) % MCHC 31.8 L (32.0-37.0) g/dL RDW 17.6 H (11.5-15.5) % MPV 13.1 H (9.5-12.2) FL Neutrophils # (1.3-7.7) k/uL Potassium 3.0 L (3.5-5.1) mmol/L BUN <3.5 L (7-17) mg/dL Creatinine 0.4 L (0.6-1.5) mg/dL BUN/Creatinine Ratio <8.75 L (12.00-20.00) Ratio Calcium 8.0 L (8.7-10.3) mg/dL Magnesium (1.6-2.3) mg/dL Total Bilirubin <0.2 L (0.3-1.2) mg/dL ALT 7 L (8-44) U/L Total Protein 4.8 L (6.3-8.2) g/dL Albumin 2.8 L (3.5-5.0) g/dL Albumin/Globulin Ratio 1.40 L (1.60-3.17) Ratio Urine Appearance (Clear) Urine Protein (Negative) Urine Ketones (Negative) Urine Blood (Negative) Urine RBC (0-5) /hpf Urine WBC (0-5) /hpf Ur Squamous Epith Cells (0-4) /hpf Hyaline Casts (0-2) /lpf Urine Mucus (None) /hpf U Tricyclic Antidepress (NotDetected) U Benzodiazepines Scrn (NotDetected) PQRS Measure Charge Sheet Comment: HISTORY OF PRESENT ILLNESS: A 34 yr old inpatient female as a referral from Dr Malin presents today w severe and chronic epigastric pain for evaluation. Pt states pain level is provoked at 8 /10 in intensity, constant, localized in the epigastric region, gnawing in character without shooting pain . Pain has no provocation. Pain is alleviated by medications (Dilaudid 1mg IVP q4h prn, Percocet 10/325mg q4h prn), repositioning and rest . PMH: OA, GERD/Reflux, PE, GERMAINE, Iron Deficiency Anemia, MDD/ Anxiety/ Bipolar PSH: Gastric Sleeve (12/2023), Gastric Bypass (05/2024), (2008, 2015), Cholecystectomy (2010), Tubal Ligation, Uterine Ablation SH: Former tobacco user, No ETOH use, No illicit drug use FH: Fa- CAD. Mo- CAD, COPD, DM All: See list Meds: See list REVIEW OF ORGAN SYSTEMS: CONSTITUTIONAL: No fevers or chills. No recent weight loss. NEUROLOGICAL: + numbness and tingling along the distal extremities. No seizure disorders or headaches. MUSCULOSKELETAL: + pain PSYCHIATRIC: Denies current depression or suicidal thoughts. Physical Examinations : Constitutional : Cooperative , not in acute distress . Neurologic : Cranial nerve II to XII intact. No focal neurological deficits. Abdominal : Diffuse epigastric TTP, no referred/ rebound pain Psychiatric : alert & oriented x 3. Matching mood & appropriate affect. Judgment & insight intact. Musculoskeletal : Cervical Spine Motor strength in the deltoid and biceps: Normal right side. Normal Left side Motor strength biceps and the wrist extensors: Normal right side . Normal left side Motor strength in the triceps muscle: Normal right side. Normal left side Deep tendon reflexes: Normal at the biceps. Normal at Brachioradialis. Normal at triceps Vertebral body tenderness to deep palpation over Cervical facet loading test: positive bilaterally Spurling test: positive bilaterally Neck distraction test: positive bilater ally Stacie sign: positive bilaterally Lumbar spine Motor strength lower extremities ,thigh and legs 5/5 Right side , 5/5 Left side Deep tendon reflexes : Normal Knee Jerk. Normal Ankle Jerk Vertebral body tenderness over Cerna Test positive Lumbar facet Loading Test: positive Right / positive Left Range of motion of the lumbar spine Flexion 30 degrees, extension 10 degrees Straight Leg Raise test: Left/ Right po sitive at degrees Jamal test: positive right / positive left. Severe tenderness over the Sacroiliac joint on the Right / Left sides Gaenslen test: positive bilaterally Seated flexion test: positive bilaterally. Sacral spine : Severe tenderness over the Sacroiliac joint: right side / left side Range of motion: Flexion of the lumbar spine <60 degrees Range of motion: Extension of the lumbar spine <20 degrees Gaenslen's Test positive Jamal test: positive right side / left side Thigh Thrust Test Sacral Thrust Test Assessment/ Plan : Epigastric pain w a history of GERD Recommendation of medication management. Currently on Dilaudid 1mg IVP q4h prn and Percocet PO q4h prn. No new changes at this time. Per pt, pt is schedule for an EGD. All questions answered. I have spent greater than 30 minutes on patient care today. Dr Logan was available by phone for the evaluation of this patient. The time was used to review the medical records including relevant urine studies and Prescription history (MAPs), review of the available imaging, evaluation and examination of the patient, coordination of care with the medical staff and if applicable referring physicians, as well as creation of the medical record PQRS Narrative: Smoking Status Current every day smoker Blood Pressure [Left Arm] 139/93 Blood Pressure 132/97 Pain Intensity 4 Pain Scale Used Numeric (1 - 10) Scale Used Numeric (1 - 10) Home Medications: Ambulatory Orders Asenapine Maleate [Saphris] 10 mg SL HS 07/12/24 Budesonide/Formoterol Fumarate [Symbicort 160-4.5 Mcg Inhaler] 2 puff INHALATION RT-BID 07/12/24 LORazepam [Ativan] 1 mg PO BID PRN 07/12/24 QUEtiapine [SEROquel] 100 mg PO HS 07/12/24 Tiotropium 2.5 Mcg/Puff [Spiriva Respimat 2.5 Mcg] 2 puff INHALATION RT-DAILY 07/12/24 traZODone HCL [Desyrel] 100 mg PO HS 07/12/24 Omeprazole [PriLOSEC] 40 mg PO BID 07/26/24 Ondansetron [Zofran] 4 mg PO BID PRN 07/26/24 Nicotine 21Mg/24Hr Patch [Habitrol] 1 patch TRANSDERM DAILY 09/07/24 oxyCODONE HCL [OxyIR] 5 mg PO Q12H 09/07/24 Amoxic-Pot Clav 875-125Mg [Augmentin 875-125] 1 tab PO BID 7 Days #14 tab 09/11/24 Controlled Substance Measures - Controlled Substance Measures Is patient prescribed a controlled substance at discharge?: No
[2024-09-17] MEDS ORDERED: HYDROmorphone 0.5 MG/0.5 ML SYRINGE IVP PRN (18:00)
[2024-09-17 21:00] LABS: ALT 10 U/L (4-34); African American GFR (CKD) >90 (>60 ml/min/1.73 sqM); Albumin 2.5 g/dL (3.5-5.0); Anion Gap 6 mmol/L; Blood Urea Nitrogen <2 mg/dL (7-17); Calcium 8.2 mg/dL (8.4-10.2); Carbon Dioxide 26 mmol/L (22-30); Chloride 105 mmol/L (98-107); Globulin 2.5 g/dL; Glucose 77 mg/dL (74-99); Non-African American GFR(CKD) >90 (>60 ml/min/1.73 sqM); Sodium 137 mmol/L (137-145); Total Bilirubin 0.3 mg/dL (0.2-1.3)
[2024-09-17] MEDS: POTASSIUM CHLORIDE ER 20 MEQ TAB.ER PO SCH (21:16)
[2024-09-17] MEDS: HYDROmorphone 0.5 MG/0.5 ML SYRINGE IVP PRN (21:17)
[2024-09-17 21:25] LABS: AST 28 U/L (14-36); Potassium 3.8 mmol/L (3.5-5.1)
[2024-09-17 21:26] LABS: Alkaline Phosphatase 50 U/L (38-126)
--- NOTE | 2024-09-18 00:42 | PN ---
PROGRESS NOTE A 34-year-old female, has some ovarian cysts. For abdominal pain, we are going to get Gynecology to see her. OBJECTIVE: CARDIOVASCULAR: S1, S2. LUNGS: Transmitted upper sounds. GI: Soft. HEMATOLOGY: Negative Homans. PSYCH: Fair mood and affect. Prognosis guarded. Get surgical consult, possibly esophageal dilation tomorrow. Please see further orders. MMODL / IJN: [id number] /
[2024-09-18 10:52] LABS: Basophils # (A) 0.03 X 10*3/uL (0.00-0.10); Basophils % (A) 0.4 %; Eosinophils # (A) 0.12 X 10*3/uL (0.04-0.35); Eosinophils % (A) 1.7 %; HCT 32.4 % (37.2-46.3); HGB 10.2 g/dL (12.0-15.0); Lymphocytes # (A) 2.38 X 10*3/uL (0.90-5.00); Lymphocytes % (A) 33.7 %; MCH 28.1 pg (27.0-32.0); MCHC 31.5 g/dL (32.0-37.0); MCV 89.3 FL (80.0-97.0); Mean Platelet Volume 12.7 FL (9.5-12.2); Monocytes # (A) 0.44 X 10*3/uL (0.20-1.00); Monocytes % (A) 6.2 %; NRBC Per 100 WBC 0 X 10*3/uL (0.00-0.01); Neutrophils # (A) 4.08 X 10*3/uL (1.80-7.70); Neutrophils % (A) 57.7 %; Platelet Count 205 X 10*3/uL (140-440); RBC 3.63 X 10*6/uL (4.10-5.20); RDW 17.7 % (11.5-14.5); WBC 7.07 X 10*3/uL (4.50-10.00)
[2024-09-18 10:55] LABS: ALT 8 U/L (8-44); AST 19 U/L (13-35); Albumin 2.9 g/dL (3.8-4.9); Albumin/Globulin Ratio 1.32 Ratio (1.60-3.17); Alkaline Phosphatase 57 U/L (41-126); BUN/Creat Ratio <8.75 Ratio (12.00-20.00); Blood Urea Nitrogen <3.5 mg/dL (9.0-27.0); Calcium 8.3 mg/dL (8.7-10.3); Carbon Dioxide 26.1 mmol/L (21.6-31.8); Chloride 107 mmol/L (96-109); Globulin 2.2 g/dL (1.6-3.3); Glucose 81 mg/dL (70-110); Potassium 3.6 mmol/L (3.5-5.5); Sodium 142 mmol/L (135-145); Total Bilirubin 0.2 mg/dL (0.3-1.2); Total Protein 5.1 g/dL (6.2-8.2)
[2024-09-18 11:12] LABS: ALT 10 U/L (8-44); AST 18 U/L (13-35); Albumin 2.9 g/dL (3.8-4.9); Albumin/Globulin Ratio 1.45 Ratio (1.60-3.17); Alkaline Phosphatase 56 U/L (41-126); BUN/Creat Ratio <8.75 Ratio (12.00-20.00); Blood Urea Nitrogen <3.5 mg/dL (9.0-27.0); Calcium 8.3 mg/dL (8.7-10.3); Carbon Dioxide 26.1 mmol/L (21.6-31.8); Chloride 107 mmol/L (96-109); Glucose 81 mg/dL (70-110); Potassium 3.6 mmol/L (3.5-5.5); Sodium 143 mmol/L (135-145); Total Bilirubin 0.2 mg/dL (0.3-1.2); Total Protein 4.9 g/dL (6.2-8.2)
[2024-09-18] MEDS ORDERED: PROPOFOL 10 MG/ML 20 ML VIAL IV ONE (12:51)
[2024-09-18] MEDS ORDERED: LIDOCAINE 1% INJ 10MG/ML (20 ML MDV) ONE (12:51)
[2024-09-18] MEDS: SODIUM CHLORIDE 0.9% 1,000 ML IV ONE ×2 (12:53→13:03)
--- NOTE | 2024-09-18 13:03 | P.PCN ---
Date of Procedure: 09/18/24 Procedure(s) Performed: BRIEF HISTORY: Patient is a 34-year-old, pleasant, white female in the hospital with intractable nausea vomiting since May of this year. She initially had a gastric sleeve surgery sometime last year and subsequently underwent which gastric bypass surgery and Gelnn-en-Y anastomosis at [facility] in May of last year. Since then she has been having episodes of intermittent nausea vomiting requiring hospitalization. She is following bariatric surgeon at [facility]" the patient she underwent an EGD done 3 weeks ago and was told she has an anastomotic stricture for which he underwent dilation most recommended to have it repeated in 1 month. In the meantime because of worsening symptoms she was admitted to this hospital. PROCEDURE PERFORMED: Esophagogastroduodenoscopy with biopsy. PREOPERATIVE DIAGNOSIS: Intractable nausea vomiting of 6 months duration. IV sedation per anesthesia. PROCEDURE: After informed consent was obtained, the patient was brought into the endoscopy unit. IV sedation was administered by Anesthesia under continuous monitoring. Initially the Olympus GIF-140 video endoscope was inserted into the mouth. Esophagus intubated without any difficulty. It was gradually advanced into the stomach. There was evidence of gastric pouch that appeared normal. There was evidence of gastric Glenn-en-Y bypass surgery noted. At the anastomosis there was a 3 cm ulceration identified which was biopsied. No anastomotic stricture seen. The scope was then withdrawn into the esophagus. The GE junction was located at 39 cm from the incisors. The esophagus appeared normal. There were no erosions or ulcerations seen and the patient tolerated the procedure well. IMPRESSION: 1. Evidence of gastric bypass surgery with Glenn-en-Y anastomosis. 2. 3 centimeters anastomotic ulcer status post biopsy. 3. No evidence of anastomotic stricture RECOMMENDATIONS: The findings of this examination were discussed with the patient as well as her family. She was advised to continue with Protonix 40 mg twice daily and avoid NSAIDs. Follow-up with the biopsy results.. Advance diet as tolerated.
[2024-09-18 13:44] VITALS: BMI 31.6
--- NOTE | 2024-09-18 14:15 | P.OBCN ---
<Zo Flor - Last Filed: 09/18/24 13:58> History of Present Illness Consult date: 09/18/24 Reason for consult: ovarian cyst History of present illness: Patient is a 34-year-old female admitted for intractable nausea/vomiting and epigastric abdominal pain with a finding of ovarian cysts on CT abdomen/pelvis. The cyst was described as new indeterminate multiseptated cystic lesion in the right adnexa measuring 3.8 x 7.2 cm, possible layering high density within posterior margin of this cystic lesion. Transvaginal ultrasound was performed and showed 2 complex cystic lesions in the right ovary showing internal reticulations, favored to represent hemorrhagic cysts measuring up to 4.2 cm. She reports a history of ovarian cysts but states never as large as this one. She states that she doesn't believe her abdominal pain is related to her current cysts. She does note that she has had intermittent cramping with bloody discharge for a few months. Rates the cramping as 8/10 pain. This has happened when her previous cysts have ruptured. She does report RLQ pain. Of note, she had a uterine ablation about 1.5 years ago. LMP about 1.5 years ago status post uterine ablation. She currently denies fever, chills, vomiting. Nausea is controlled with Zofran. Labs/Imaging: Beta-hCG negative Transvaginal US: 2 complex cystic lesions in the right ovary showing internal reticulations, favored to represent hemorrhagic cysts measuring up to 4.[address] abdomen/pelvis: New indeterminate multiseptated cystic lesion in the right adnexa measuring 3.8 x 7.2 cm, possible layering high density within posterior margin of this cystic lesion Review of Systems Constitutional: Denies chills, Denies fever Genitourinary: Reports as per HPI Menstruation: Reports as per HPI Past Medical History Past Medical History: GERD/Reflux, Pulmonary Embolus (PE), Sleep Apnea/CPAP/BIPAP Additional Past Medical History / Comment(s): iron defiency anemia, currently getting iron infusions, no cpap used, pulmonary embolism 02/13/24 History of Any Multi-Drug Resistant Organisms: None Reported Past Surgical History: Bariatric Surgery, Section, Cholecystectomy, Tubal Ligation, Uterine Ablation Additional Past Surgical History / Comment(s): 2008 AND 2015 (c/s) and 2010 (cholecyst). 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 gastric bypass 06/11/24 Past Anesthesia/Blood Transfusion Reactions: No Reported Reaction Smoking Status: Current every day smoker - Past Family History Mother Family Medical History: Asthma, COPD, Diabetes Mellitus, Hypertension Additional Family Medical History / Comment(s): depression, anxiety, sleep apnea, Father Family Medical History: Hypertension Additional Family Medical History / Comment(s): arthritis Medications and Allergies Home Medications Medication Instructions Recorded Confirmed Type Asenapine Maleate [Saphris] 10 mg SL HS 07/12/24 09/16/24 History Budesonide/Formoterol Fumarate 2 puff INHALATION RT-BID 07/12/24 09/16/24 History [Symbicort 160-4.5 Mcg Inhaler] LORazepam [Ativan] 1 mg PO BID PRN 07/12/24 09/16/24 History QUEtiapine [SEROquel] 100 mg PO HS 07/12/24 09/16/24 History Tiotropium 2.5 Mcg/Puff [Spiriva 2 puff INHALATION RT-DAILY 07/12/24 09/16/24 History Respimat 2.5 Mcg] traZODone HCL [Desyrel] 100 mg PO HS 07/12/24 09/16/24 History Omeprazole [PriLOSEC] 40 mg PO BID 07/26/24 09/16/24 History Ondansetron [Zofran] 4 mg PO BID PRN 07/26/24 09/16/24 History Nicotine 21Mg/24Hr Patch [Habitrol] 1 patch TRANSDERM DAILY 09/07/24 09/16/24 History oxyCODONE HCL [OxyIR] 5 mg PO Q12H 09/07/24 09/16/24 History Amoxic-Pot Clav 875-125Mg 1 tab PO BID 7 Days #14 tab 09/11/24 09/16/24 Rx [Augmentin 875-125] Allergies Allergy/AdvReac Type Severity Reaction Status Date / Time latex Allergy Rash/Hives Verified 09/16/24 19:36 morphine AdvReac Itching Verified 09/16/24 19:36 Exam Vital Signs Temp Pulse Pulse Resp BP BP Pulse Ox 09/18/24 07:07 98.0 F 78 16 137/87 99 09/18/24 02:00 98.6 F 81 14 145/95 100 09/17/24 19:50 98.3 F 74 14 138/86 100 09/17/24 17:21 98.6 F 77 18 140/94 98 09/17/24 16:45 76 17 134/98 98 09/17/24 15:26 85 09/17/24 15:18 82 09/17/24 15:11 97.5 F L 79 18 132/97 97 09/17/24 13:52 84 18 124/89 96 09/17/24 12:30 70 18 09/17/24 11:31 87 09/17/24 11:22 85 09/17/24 11:08 80 18 131/84 97 09/17/24 09:15 98.3 F 85 18 143/90 97 Intake and Output 09/17/24 09/18/24 09/18/24 22:59 06:59 14:59 Intake Total 0 Balance 0 Intake: Oral 0 Other: Weight 78.471 kg General: Well-appearing, no acute distress Abdomen: RLQ tenderness to palpation, no palpable masses - OBG Physical Exam Abdomen: no mass Abdomen detail: right lower quadrant: tenderness Results Result Diagrams: 09/18/24 06:38 09/18/24 06:38 Abnormal Lab Results - Last 24 Hours (Table) 09/17/24 09/17/24 09/17/24 Range/Units 07:00 07:00 20:15 RBC 3.30 L (4.10-5.20) X 10*6/uL Hgb 9.3 L (12.0-15.0) g/dL Hct 29.2 L (37.2-46.3) % MCHC 31.8 L (32.0-37.0) g/dL RDW 17.6 H (11.5-14.5) % MPV 13.1 H (9.5-12.2) FL Potassium 3.0 L (3.5-5.5) mmol/L BUN <3.5 L <2 L (9.0-27.0) mg/dL Creatinine 0.4 L 0.40 L (0.6-1.5) mg/dL BUN/Creatinine Ratio <8.75 L (12.00-20.00) Ratio Calcium 8.0 L 8.2 L (8.7-10.3) mg/dL Total Bilirubin <0.2 L (0.3-1.2) mg/dL ALT 7 L (8-44) U/L Total Protein 4.8 L 5.0 L (6.2-8.2) g/dL Albumin 2.8 L 2.5 L (3.8-4.9) g/dL Albumin/Globulin Ratio 1.40 L (1.60-3.17) Ratio Cortisol (3.1-22.4) UG/DL 09/17/24 Range/Units 20:15 RBC (4.10-5.20) X 10*6/uL Hgb (12.0-15.0) g/dL Hct (37.2-46.3) % MCHC (32.0-37.0) g/dL RDW (11.5-14.5) % MPV (9.5-12.2) FL Potassium (3.5-5.5) mmol/L BUN (9.0-27.0) mg/dL Creatinine (0.6-1.5) mg/dL BUN/Creatinine Ratio (12.00-20.00) Ratio Calcium (8.7-10.3) mg/dL Total Bilirubin (0.3-1.2) mg/dL ALT (8-44) U/L Total Protein (6.2-8.2) g/dL Albumin (3.8-4.9) g/dL Albumin/Globulin Ratio (1.60-3.17) Ratio Cortisol 3.0 L (3.1-22.4) UG/DL Assessment and Plan Assessment: Right-sided ovarian cyst, 4.2 cm in size RLQ pain, likely secondary to ovarian cyst Plan: No immediate intervention at this time. Recommend repeat ultrasound in 6-8 weeks outpatient. Thank you for the consultation. We will follow patient as needed. <Zuleima Naylor - Last Filed: 09/19/24 07:58> Exam Osteopathic Statement: *. No significant issues noted on an osteopathic structural exam other than those noted in the History and Physical/Consult. Vital Signs Temp Pulse Resp BP Pulse Ox 09/19/24 07:12 98.5 F 91 18 117/77 98 09/19/24 02:00 98.5 F 87 18 147/90 97 09/18/24 19:31 98.7 F 87 20 148/92 99 09/18/24 11:59 98.9 F 85 15 132/85 98 Intake and Output 09/18/24 09/19/24 09/19/24 22:59 06:59 14:59 Other: Voiding Method Toilet # Voids 2 Results Result Diagrams: 09/18/24 06:38 09/18/24 06:38 Abnormal Lab Results - Last 24 Hours (Table) 09/18/24 09/18/24 09/18/24 Range/Units 06:38 06:38 06:38 RBC 3.63 L (4.10-5.20) X 10*6/uL Hgb 10.2 L (12.0-15.0) g/dL Hct 32.4 L (37.2-46.3) % MCHC 31.5 L (32.0-37.0) g/dL RDW 17.7 H (11.5-14.5) % MPV 12.7 H (9.5-12.2) FL BUN <3.5 L <3.5 L (9.0-27.0) mg/dL Creatinine 0.4 L 0.4 L (0.6-1.5) mg/dL BUN/Creatinine Ratio <8.75 L <8.75 L (12.00-20.00) Ratio Calcium 8.3 L 8.3 L (8.7-10.3) mg/dL Total Bilirubin 0.2 L 0.2 L (0.3-1.2) mg/dL Total Protein 4.9 L 5.1 L (6.2-8.2) g/dL Albumin 2.9 L 2.9 L (3.8-4.9) g/dL Albumin/Globulin Ratio 1.45 L 1.32 L (1.60-3.17) Ratio Assessment and Plan Plan: Pt was advised of Torsion symptoms and to come back to ER if she has severe RLQ pain. I saw patient with the Dr Flor and agree with the findings and plan above
--- NOTE | 2024-09-18 15:37 | P.CN ---
Psychiatric Consult - . Consult date: 09/18/24 Consult:: 09/18/24 15:29 IDENTIFYING DATA: This patient is a 34-year-old -[place] female, single and unemployed REASON FOR REFERRAL: Psychiatry was consulted for evaluate psych meds that might be causing nausea HISTORY OF PRESENT ILLNESS: The patient presented to the hospital on 09/16 with chief complaint of nausea, vomiting and decreased appetite. Patient has a history of gastric bypass and received an EGD today. Patient reports stability in terms of her mood and states she has been on Seroquel for many years for insomnia, prescribed by her PCP however did mention Saphris being added several months ago for mood stabilization by her therapist at [facility]. At this time patient denies any suicidal or homical ideations, intent or plan. Patient denies any auditory, visual hallucinations and denies any paranoia or delusions. She state s finding out recently that she has an ulcer and that this could be contributing to her ongoing symptoms. She declined the addition of Vistaril for nausea/vomiting stating that this caused her to itch previously. She feels stable on her current medications. PAST PSYCHIATRIC HISTORY: Patient has a history of mood symptoms. She is currently prescribed Seroquel 100 mg at bedtime, Saphris 10 mg at bedtime, trazodone 100 mg at bedtime, Ativan 1 mg twice daily as needed. Patient denies any previous psychiatric hospitalizations. Patient states seeing a therapist at [facility] but has not followed up recently. Patient denies any history of suicide attempts in the past. PAST MEDICAL HISTORY: GERD, PE, sleep apnea, gastric bypass, iron deficiency anemia. ALLERGIES: as per EMR. CHEMICAL DEPENDENCY HISTORY: as per HPI. FAMILY PSYCHIATRIC/SUBSTANCE USE HISTORY: Denies SOCIAL HISTORY: Patient is currently single and living alone. MENTAL STATUS EXAM: General Appearance: Patient appears to be stated age is alert, pleasant, and cooperative. Patient appears to have fair hygiene and grooming wearing hospital gown with fair eye contact. Behavior: Patient is calmly lying in bed without any agitated behavior. Speech: Patient's speech is fluent and nonpressured. Mood/Affect: Patient reports their mood is "okay", affect is congruent Suicidality/Homicidality: Patient denies having any suicidal or homicidal ideation intent or plan. Perceptions: Patient denies any visual hallucinations and denies any auditory hallucinations Though content/process: There is no evidence of any delusional thought content and thought process is linear and logical. Memory and concentration: AOX3, grossly intact for the purposes of this session. Can spell "WORLD" backwards Judgment and insight: Fair IMPRESSIONS: Anxiety, unspecified Depression, unspecified PLAN: -At this time patient DOES NOT meet criteria for inpatient psychiatric admission. -Would recommend the following medication changes/additions: Given the timeline of symptoms, unlikely related to psychotropic medications. Restart trazodone at 100 mg at bedtime for sleep and continue Seroquel 100 mg at bedtime, Saphris 10 mg at bedtime, Ativan 1 mg twice daily as needed -utility worker driver to provide patient with outpatient mental health/psychiatry resources for appropriate follow up upon discharge Patient states seeing this therapist at [facility] and was encouraged to follow-up with them once discharged -Psychiatry will sign off at this time -Please contact with any questions.
[2024-09-18] MEDS: traZODone HCL 100 MG TAB PO SCH (20:48)
[2024-09-18] MEDS: ONDANSETRON 4 MG TAB PO PRN (22:33)
--- NOTE | 2024-09-19 13:22 | P.PN ---
Subjective Progress Note Date: 09/18/24 CHIEF COMPLAINT: Intractable nausea and vomiting HISTORY OF PRESENT ILLNESS: The patient is a 34-year-old female who is status post revision from gastric sleeve to gastric bypass by Dr. Coker at [facility] for intractable nausea and vomiting over 5 months ago. Patient continues to come in for intractable nausea and vomiting, epigastric abdominal pain. Patient now discloses that she continues to smoke despite this being immediately contraindicated with her gastric bypass surgery and risk for ulcers and chronic abdominal pain. Patient is scheduled to undergo upper endoscopy by gastroenterology team. Patient has history of chronic hospitalizations as well. REVIEW OF ORGAN SYSTEMS: No fevers or chills. No chest pain. PHYSICAL EXAM: VITALS: Reviewed CONSTITUTIONAL: Well developed and in no acute distress. EYES: Conjuctivae without sclera icterus. Extraocular movements grossly intact. HEAD, EARS, NOSE, THROAT: Moist buccal mucosa. Head is atraumatic, normocephalic. Hears conversational speech. No nasal drainage. RESPIRATORY: Non-labored respirations and equal bilateral excursions. No gross wheezes. CARDIOVASCULAR: Palpable 2+ radial pulses. ABDOMEN: No peritonitis. MUSCULOSKELETAL: No clubbing cyanosis or edema SKIN: Warm and well perfused with good skin turgor. NEUROLOGIC: Cranial nerves II through XII grossly intact. No focal or lateralizing signs. PSYCH: Appropriate affect. Alert and oriented to person, place and time. Displays appropriate insight. CLINCAL LABS: Reviewed. WBC normal. Hemoglobin less than 11.0, anemia ASSESSMENT: 1. Intractable nausea and vomiting. 2. Right adnexal cystic mass 3. History of gastric bypass 4. Hypokalemia 5. Vitamin A deficiency 6. Vitamin B6 deficiency 7. Hypomagnesia 8. Anemia 9. Tobacco abuse disorder 10. Noncompliance to bariatric care PLAN: 1. Patient confirms that she continues to smoke which is contraindicated with a gastric bypass for increased risk of gastric ulcers, anastomotic stricture, chronic abdominal pain. Tobacco cessation and counseling performed for over 3 minutes 2. Recommend urine nicotine test to assess levels of nicotine 3. Patient pending upper endoscopy possible dilation with gastroenterology team 4. Patient has pre-existing multiple nutritional deficiencies which may be addressed outpatient with her primary care provider 5. General Surgery to sign off as no acute surgical invention needed. Objective - Vital Signs Vital signs: Vital Signs Temp 98.3 F 09/19/24 12:12 Pulse 78 09/19/24 12:12 Resp 18 09/19/24 12:12 BP 150/91 09/19/24 12:12 Pulse Ox 100 09/19/24 12:12 FiO2 Intake & Output 09/18/24 09/19/24 09/19/24 18:59 06:59 18:59 Intake Total 100 Balance 100 Weight 78.471 kg Intake: IV 100 Other: Voiding Method Toilet Toilet Toilet # Voids 1 2 - Labs CBC & Chem 7: 09/18/24 06:38 09/18/24 06:38
[2024-09-19] MEDS: HYDROCORTISONE 20 MG TAB PO SCH (13:26)
--- NOTE | 2024-09-19 15:29 | P.PN ---
Subjective Progress Note Date: 09/19/24 Principal diagnosis: Nausea and vomiting This is a pleasant 34-year-old -Togolese female who presented to the emergency department with complaints of nausea vomiting and epigastric pain. Patient has chronic nausea vomiting and epigastric pain since she has undergone a gastric sleeve that was done in December 2023 she was sent to [facility] where she had undergone a revision and has undergone a Glenn-en-Y in May 2024. States about a month ago she had upper endoscopy with dilation. She was just recently here and hospitalized for complaints of abdominal pain with nausea and vomiting. Past medical history includes GERD, PE, sleep apnea iron deficiency anemia, anxiety and bipolar depression. Patient was just hospitalized from 09/06/2024 to 09/13/24 and returned 3 days later with similar complaints. During her previous hospitalization she was followed by general surgery and had an upper GI that reported post Glenn-en-Y gastric bypass. No esophageal stricture or hiatal hernia. No obstruction. There appears to be 2 adjacent segments of red blood to have luminal narrowing 1 along the stomach adjacent to the gastrojejunostomy and 1 at the anastomosis., During this hospitalization she had a CT of the abdomen pelvis that shows no acute process to explain the patient's symptoms. States she last vomited yesterday. Still having some nausea. States she has not followed with [facility] as she does not have transportation to follow-up there. 09/19/2024 Patient is seen and examined today as a follow-up. Yesterday she underwent upper endoscopy with findings of evidence of gastric bypass surgery with Glenn-en-Y anastomosis, large anastomotic ulcer, no evidence of anastomotic stricture. Today she states vomiting has improved. No significant abdominal pain. She was seen by psychiatry yesterday with some changes to her medications as well. Objective - Vital Signs Vital signs: Vital Signs Temp 98.5 F 09/19/24 07:12 Pulse 91 09/19/24 07:12 Resp 18 09/19/24 07:12 BP 117/77 09/19/24 07:12 Pulse Ox 98 09/19/24 07:12 FiO2 Intake & Output 09/18/24 09/19/24 09/19/24 18:59 06:59 18:59 Intake Total 100 Balance 100 Weight 78.471 kg Intake: IV 100 Other: Voiding Method Toilet Toilet Toilet # Voids 1 2 - Exam General appearance: The patient is alert, oriented, appears in no acute distress. HET: Head is normocephalic and atraumatic. Conjunctiva pink. Sclera anicteric. Neck: Supple without lymphadenopathy. Abdomen: Soft, nontender, nondistended. Extremities: Normal skin color and turgor. No pedal edema Skin: No rashes, no jaundice Neurological: No focal deficits. Alert and oriented. - Labs CBC & Chem 7: 09/18/24 06:38 09/18/24 06:38 Assessment and Plan (1) Nausea and vomiting Narrative/Plan: 34-year-old female with history of chronic nausea and vomiting and epigastric pain status post sleeve gastrectomy followed by revision and Glenn-en-Y bypass who was recently hospitalized every admitted for nausea vomiting and abdominal pain. Need to consider possible anastomotic stricture that needs dilation. Patient recently had upper GI that showed no esophageal stricture but possible narrowing at anastomotic site. Will plan on upper endoscopy and continue s ymptomatic treatment. Current Visit: No Status: Acute Code(s): R11.2 - NAUSEA WITH VOMITING, UNSPECIFIED SNOMED Code(s): 92911880 (2) Epigastric pain Current Visit: Yes Status: Acute Code(s): R10.13 - EPIGASTRIC PAIN SNOMED Code(s): 06402057 (3) History of Glenn-en-Y gastric bypass Narrative/Plan: Large anastomostic ulcer status post biopsy Current Visit: Yes Status: Acute Code(s): Z98.84 - BARIATRIC SURGERY STATUS SNOMED Code(s): 626978785 Plan: 1. Continue symptomatic and supportive care 2. Diet as tolerated 3. Continue antiemetics as needed 4. Protonix 40 mg twice daily 5. Patient is status post upper endoscopy. No further workup from gastroenterology Thank you for this consultation, patient is cleared from gastroenterology for discharge. Follow-up in 1 to [address] Roxanne Rascon I agree with the dictator's note, documented as a scribe by Madhavi Monzon.
--- NOTE | 2024-09-19 20:12 | PN ---
PROGRESS NOTE SUBJECTIVE: A 34-year-old female, has low cortisol level, has gastric ulcer, put on Protonix 40 b.i.d. and started on Cortef 20 b.i.d. for 2 days. We will increase her diet to regular and then possibly go home. OBJECTIVE: GENERAL: She is weak, fatigued. CARDIOVASCULAR: S1, S2. LUNGS: Transmitted breath sounds. GI: Soft. HEMATOLOGY: Negative Homans. PSYCH: Fair mood and affect. Prognosis guarded. Possible discharge home later today. Please see further orders. MMODL / IJN: [id number] /
--- NOTE | 2024-09-20 10:45 | P.PN ---
Subjective Progress Note Date: 09/20/24 Principal diagnosis: Nausea and vomiting This is a pleasant 34-year-old -Beninese female who presented to the emergency department with complaints of nausea vomiting and epigastric pain. Patient has chronic nausea vomiting and epigastric pain since she has undergone a gastric sleeve that was done in December 2023 she was sent to [facility] where she had undergone a revision and has undergone a Glenn-en-Y in May 2024. States about a month ago she had upper endoscopy with dilation. She was just recently here and hospitalized for complaints of abdominal pain with nausea and vomiting. Past medical history includes GERD, PE, sleep apnea iron deficiency anemia, anxiety and bipolar depression. Patient was just hospitalized from 09/06/2024 to 09/13/24 and returned 3 days later with similar complaints. During her previous hospitalization she was followed by general surgery and had an upper GI that reported post Glenn-en-Y gastric bypass. No esophageal stricture or hiatal hernia. No obstruction. There appears to be 2 adjacent segments of red blood to have luminal narrowing 1 along the stomach adjacent to the gastrojejunostomy and 1 at the anastomosis., During this hospitalization she had a CT of the abdomen pelvis that shows no acute process to explain the patient's symptoms. States she last vomited yesterday. Still having some nausea. States she has not followed with [facility] as she does not have transportation to follow-up there. 09/19/2024 Patient is seen and examined today as a follow-up. Yesterday she underwent upper endoscopy with findings of evidence of gastric bypass surgery with Glenn-en-Y anastomosis, large anastomotic ulcer, no evidence of anastomotic stricture. Today she states vomiting has improved. No significant abdominal pain. She was seen by psychiatry yesterday with some changes to her medications as well. 09/20/2024 Patient is seen and examined today as a follow-up. She states that she is feeling better today. No vomiting. Abdominal pain improving. Objective - Vital Signs Vital signs: Vital Signs Temp 98.5 F 09/20/24 07:50 Pulse 100 09/20/24 07:50 Resp 16 09/20/24 07:50 BP 124/81 09/20/24 07:50 Pulse Ox 97 09/20/24 07:50 FiO2 Intake & Output 01/08/25 01/09/25 01/09/25 18:59 06:59 18:59 Intake Total 540 Balance 540 Intake: Oral 540 Other: Voiding Method Toilet Toilet - Exam General appearance: The patient is alert, oriented, appears in no acute distress. HET: Head is normocephalic and atraumatic. Conjunctiva pink. Sclera anicteric. Neck: Supple without lymphadenopathy. Abdomen: Soft, nontender, nondistended. Extremities: Normal skin color and turgor. No pedal edema Skin: No rashes, no jaundice Neurological: No focal deficits. Alert and oriented. - Labs CBC & Chem 7: 09/18/24 06:38 09/18/24 06:38 Assessment and Plan (1) Nausea and vomiting Narrative/Plan: 34-year-old female with history of chronic nausea and vomiting and epigastric pain status post sleeve gastrectomy followed by revision and Glenn-en-Y bypass who was recently hospitalized every admitted for nausea vomiting and abdominal pain. Need to consider possible anastomotic stricture that needs dilation. Patient recently had upper GI that showed no esophageal stricture but possible narrowing at anastomotic site. Will plan on upper endoscopy and continue symptomatic treatment. Current Visit: No Status: Acute Code(s): R11.2 - NAUSEA WITH VOMITING, UNSPECIFIED SNOMED Code(s): 04572668 (2) Epigastric pain Current Visit: Yes Status: Acute Code(s): R10.13 - EPIGASTRIC PAIN SNOMED Code(s): 45982435 (3) History of Glenn-en-Y gastric bypass Narrative/Plan: Large anastomostic ulcer status post biopsy Current Visit: Yes Status: Acute Code(s): Z98.84 - BARIATRIC SURGERY STATUS SNOMED Code(s): 060747134 Plan: 1. Continue symptomatic and supportive care 2. Diet as tolerated 3. Continue antiemetics as needed 4. Protonix 40 mg twice daily 5. Patient is status post upper endoscopy. No further workup from gastroenterology Thank you for this consultation, patient is cleared from gastroenterology for discharge. Follow-up in 1 to 2 weeks for biopsy results. We will sign off at this time. Dr. Roxanne Rascon I agree with the dictator's note, documented as a scribe by Madhavi Monzon.
[2024-09-21 12:51] VITALS: BP 115/73; PULSE 90; RESP 17; TEMP 99
== END 2024-09-21 16:30 | disposition home or self-care (01) | DRG 241 ==
LOC: EC 16:07 → OBSVTOIN 19:55 → 4SSUR 19:55 → 5NMEDONC 09-17 16:22
PROVIDERS: ADMIT Family Medicine; ATTEND Family Medicine
PROC: 0DB68ZX Excision of Stomach, Via Natural or Artificial Opening Endoscopic, Diagnostic (ICD-10-PCS; principal; 2024-09-18 07:30)
DX: K28.9 Gastrojejunal ulcer, unspecified as acute or chronic, without hemorrhage or perforation (principal); K21.9 Gastro-esophageal reflux disease without esophagitis; F31.9 Bipolar disorder, unspecified; F17.200 Nicotine dependence, unspecified, uncomplicated; E87.6 Hypokalemia; E50.9 Vitamin A deficiency, unspecified; E53.1 Pyridoxine deficiency; E83.42 Hypomagnesemia; G47.33 Obstructive sleep apnea (adult) (pediatric); F41.9 Anxiety disorder, unspecified; D64.9 Anemia, unspecified; N83.201 Unspecified ovarian cyst, right side; Z88.5 Allergy status to narcotic agent; Z56.0 Unemployment, unspecified; Z91.040 Latex allergy status; Z86.711 Personal history of pulmonary embolism; Z98.84 Bariatric surgery status; Z91.199 Patient's noncompliance with other medical treatment and regimen due to unspecified reason
CPT/HCPCS: 36415; 43239; 74177; 76830; 80053; 80306; 80307; 80320; 81001; 81025; 82533; 83605; 83690; 83735; 84100; 84484; 85025; 85610; 85730; 88305; 93005; 93975; 94640; 96361; 96365; 96366; 96367; 96368; 96375; 96376; 99285

== ENCOUNTER 2024-09-28 12:29 | Emergency (ER) | payer OTHER ==
--- NOTE | 2024-09-28 14:41 | ED ---
Extremity Problem HPI - General Source: patient, RN notes reviewed Mode of arrival: wheelchair Limitations: no limitations - History of Present Illness Onset/Timin -: days(s) <Srinath Terry - Last Filed: 09/28/24 14:38> <Luiza - Last Filed: 09/28/24 19:04> - General Chief complaint: Extremity Problem,Nontraumatic Stated complaint: [place] leg numbness Time Seen by Provider: 09/28/24 12:45 - History of Present Illness Initial comments: Quick note: This is a 34-year-old female presenting with BLE pain (05/22) and paresthesia x 7 days. Patient endorses blav-[id number] sensation starting at her feet and moving upward. Endorses increased sensitivity of her feet, stating it feels like she is walking on "hot [place]". Endorses numbness on the outside of her thighs without saddle paresthesia or urinary incontinence/retention. Denies lower back pain or recent trauma. (Srinath Terry) - Related Data Home Medications Medication Instructions Recorded Confirmed Asenapine Maleate [Saphris] 10 mg SL HS 07/12/24 09/28/24 Budesonide/Formoterol Fumarate 2 puff INHALATION RT-BID 07/12/24 09/28/24 [Symbicort 160-4.5 Mcg Inhaler] LORazepam [Ativan] 1 mg PO BID PRN 07/12/24 09/28/24 QUEtiapine [SEROquel] 100 mg PO HS 07/12/24 09/28/24 Tiotropium 2.5 Mcg/Puff [Spiriva 2 puff INHALATION RT-DAILY 07/12/24 09/28/24 Respimat 2.5 Mcg] traZODone HCL [Desyrel] 100 mg PO HS 07/12/24 09/28/24 Ondansetron [Zofran] 4 mg PO BID PRN 07/26/24 09/28/24 Nicotine 21Mg/24Hr Patch [Habitrol] 1 patch TRANSDERM DAILY 09/07/24 09/28/24 oxyCODONE HCL [OxyIR] 5 mg PO Q12H 09/07/24 09/28/24 Previous Rx's Medication Instructions Recorded Pantoprazole Sodium [Protonix] 40 mg PO BID #60 tab 09/20/24 Hydrocortisone [Cortef] 20 mg PO BID 30 Days #60 tab 09/21/24 Allergies Allergy/AdvReac Type Severity Reaction Status Date / Time latex Allergy Rash/Hives Verified 09/28/24 17:55 morphine AdvReac Itching Verified 09/28/24 17:55 Review of Systems ROS Other: All systems not noted in ROS Statement are negative. <Srinath Terry - Last Filed: 09/28/24 14:38> ROS Other: All systems not noted in ROS Statement are negative. <Luiza Pierson - Last Filed: 09/28/24 19:04> ROS Statement: Those systems with pertinent positive or pertinent negative responses have been documented in the HPI. Past Medical History Past Medical History: GERD/Reflux, Pulmonary Embolus (PE), Sleep Apnea/CPAP/BIPAP Additional Past Medical History / Comment(s): iron defiency anemia, currently getting iron infusions, no cpap used, pulmonary embolism 02/13/24 History of Any Multi-Drug Resistant Organisms: None Reported Past Surgical History: Bariatric Surgery, Section, Cholecystectomy, Tubal Ligation, Uterine Ablation Additional Past Surgical History / Comment(s): 2008 AND 2015 (c/s) and 2010 (cholecyst). 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 gastric bypass 06/11/24 Past Anesthesia/Blood Transfusion Reactions: No Reported Reaction Past Psychological History: Anxiety, Bipolar, Depression Smoking Status: Former smoker Past Alcohol Use History: None Reported Past Drug Use History: None Reported - Past Family History Mother Family Medical History: Asthma, COPD, Diabetes Mellitus, Hypertension Additional Family Medical History / Comment(s): depression, anxiety, sleep apnea, Father Family Medical History: Hypertension Additional Family Medical History / Comment(s): arthritis <Srinath Terry - Last Filed: 09/28/24 14:38> General Exam Limitations: no limitations <Srinath Terry - Last Filed: 09/28/24 14:38> - General Exam Comments Initial Comments: Visual Physical Exam Vital signs reviewed General: Well-appearing, nontoxic, no acute distress. Patient seated in wheelchair Head: Normocephalic, atraumatic Eyes: PERRLA, EOMI ENT: Airway patent Chest: Nonlabored breathing Skin: No visual rash, normal skin tone Neuro: Alert and oriented 3 Musculoskeletal: No gross abnormalities (Srinath Terry) Course Vital Signs 09/28/24 09/28/24 13:09 18:31 Temperature 98.6 F Pulse Rate 133 H 98 Respiratory 16 18 Rate Blood Pressure 110/82 125/88 O2 Sat by Pulse 99 100 Oximetry Medical Decision Making <Srinath Terry - Last Filed: 09/28/24 14:38> - Lab Data Result diagrams: 09/28/24 16:43 09/28/24 16:43 <Luiza - Last Filed: 09/28/24 19:04> - Medical Decision Making I completed the quick note portion of this chart signed JOSE ANTONIO Chao (Srinath Terry) Was pt. sent in by a medical professional or institution (STEPHY Wild, CORRECTIVE THERAPY AIDE TEACHER, urgent care, hospital, or shelter...) When possible be specific @ -[No] Did you speak to anyone other than the patient for history (EMS, parent, family, police, friend...)? What history was obtained from this source @ -[No] Did you review nursing and triage notes (agree or disagree)? Why? @ -[I reviewed nursing and triage notes] Were old charts reviewed (outside hosp., previous admission, EMS record, old EKG, old radiological studies, urgent care reports/EKG's, shelter records)? Report findings @ -[Medical records reviewed] Differential Diagnosis (chest pain, altered mental status, abdominal pain women, abdominal pain men, vaginal bleeding, weakness, fever, dyspnea, syncope, headache, dizziness, GI bleed, back pain, seizure, CVA, palpatations, mental health, musculoskeletal)? @Diagnosed remains broad however top considerations include neuropathy secondary to electrolyte abnormality, thyroid abnormality, alcohol use, diabetes, EKG interpreted by me (3pts min.). @ -[As above] X-rays interpreted by me (1pt min.). @ -[None done] CT interpreted by me (1pt min.). @ -[None done] U/S interpreted by me (1pt. min.). @ -[None done] What testing was considered but not performed or refused? (CT, X-rays, U/S, labs)? Why? @ -[None] What meds were considered but not given or refused? Why? @ -[None] Did you discuss the management of the patient with other professionals (professionals i.e. , PA, CORRECTIVE THERAPY AIDE TEACHER, lab, RT, psych nurse, social media campaign manager, vp corporate development, teacher, retail loan officer, child welfare caseworker)? Give summary @ -[No] Was smoking cessation discussed for >3mins.? @ -[No] Was critical care preformed (if so, how long)? @ -[No] Were there social determinants of health that impacted care today? How? (Homelessness, low income, unemployed, alcoholism, drug addiction, transportation, low edu. Level, literacy, decrease access to med. care, custodial, rehab)? @ -[No] Was there de-escalation of care discussed even if they declined (Discuss DNR or withdrawal of care, Hospice)? @ -[No] What co-morbidities impacted this encounter? (DM, HTN, Smoking, COPD, CAD, Cancer, CVA, ARF, Chemo, Hep., AIDS, mental health diagnosis, sleep apnea, mo rbid obesity)? @ -[None] Was patient admitted / discharged? Hospital course, mention meds given and route, prescriptions, significant lab abnormalities, going to OR and other pertinent info. @ -[hospital course] discharged-is a 34-year-old female past medical history of GERD, presenting today for pins and needle sensations of the bilateral lower extremities. Patient states is been ongoing for last [address] Molina her PCP and has been prescribed gabapentin. Complete history and physical exam performed. Patient Dors is decreased sensation and hypersensitivity to light touch at the distal bilateral 70s up to her thighs. No midline spinal tenderness to palp patient. Plan for complete labs to assess for electrolyte abnormality, thyroid disorder, hyperglycemia. Undiagnosed new problem with uncertain prognosis? @ -[No] Drug Therapy requiring intensive monitoring for toxicity (Heparin, Nitro, Insulin, Cardizem)? @ -[No] Were any procedures done? @ -[No] Diagnosis/symptom? @ -[default] Acute, or Chronic, or Acute on Chronic? @ -[default] Uncomplicated (without systemic symptoms) or Complicated (systemic symptoms)? @ -[default] Side effects of treatment? @ -[No] Exacerbation, Progression, or Severe Exacerbation? @ -[No] Poses a threat to life or bodily function? How? (Chest pain, [place], NM, pneumonia, PE, COPD, DKA, ARF, appy, cholecystitis, CVA, Diverticulitis, Homicidal, Suicidal, threat to staff... and all critical care pts) @ -[No] (Luiza Pierson) - Lab Data Lab Results 09/28/24 09/28/24 09/28/24 Range/Units 16:43 16:43 16:43 WBC 8.1 (3.8-10.6) k/uL RBC 4.34 (3.80-5.40) m/uL Hgb 12.4 (11.4-16.0) gm/dL Hct 40.1 (34.0-46.0) % MCV 92.5 (80.0-100.0) fL MCH 28.5 (25.0-35.0) pg MCHC 30.8 L (31.0-37.0) g/dL RDW 16.7 H (11.5-15.5) % Plt Count 230 (150-450) k/uL MPV 9.8 Neutrophils % 67 % Lymphocytes % 24 % Monocytes % 6 % Eosinophils % 1 % Basophils % 0 % Neutrophils # 5.5 (1.3-7.7) k/uL Lymphocytes # 2.0 (1.0-4.8) k/uL Monocytes # 0.5 (0-1.0) k/uL Eosinophils # 0.1 (0-0.7) k/uL Basophils # 0.0 (0-0.2) k/uL Hypochromasia Marked Anisocytosis Slight Sodium 140 (137-145) mmol/L Potassium 3.6 (3.5-5.1) mmol/L Chloride 103 (98-107) mmol/L Carbon Dioxide 21 L (22-30) mmol/L Anion Gap 16 mmol/L BUN 7 (7-17) mg/dL Creatinine 0.49 L (0.52-1.04) mg/dL Est GFR (CKD-EPI)AfAm >90 (>60 ml/min/1.73 sqM) Est GFR (CKD-EPI)NonAf >90 (>60 ml/min/1.73 sqM) Glucose 67 L (74-99) mg/dL POC Glucose (mg/dL) (70-110) mg/dL POC Glu Motor Vehicle Lecturer ID Calcium 9.6 (8.4-10.2) mg/dL Ionized Calcium Nori 5.0 (4.5-5.3) mg/dL Phosphorus 3.6 (2.5-4.5) mg/dL Magnesium 1.9 (1.6-2.3) mg/dL Total Bilirubin 1.0 (0.2-1.3) mg/dL AST 20 (14-36) U/L ALT 11 (4-34) U/L Alkaline Phosphatase 69 (38-126) U/L Total Protein 6.4 (6.3-8.2) g/dL Albumin 3.6 (3.5-5.0) g/dL Amylase 53 (30-110) U/L Lipase 50 (23-300) U/L TSH 0.051 L (0.465-4.680) mIU/L Free T4 1.95 (0.78-2.19) ng/dL HCG, Qual Not Detected 09/28/24 Range/Units 18:53 WBC (3.8-10.6) k/uL RBC (3.80-5.40) m/uL Hgb (11.4-16.0) gm/dL Hct (34.0-46.0) % MCV (80.0-100.0) fL MCH (25.0-35.0) pg MCHC (31.0-37.0) g/dL RDW (11.5-15.5) % Plt Count (150-450) k/uL MPV Neutrophils % % Lymphocytes % % Monocytes % % Eosinophils % % Basophils % % Neutrophils # (1.3-7.7) k/uL Lymphocytes # (1.0-4.8) k/uL Monocytes # (0-1.0) k/uL Eosinophils # (0-0.7) k/uL Basophils # (0-0.2) k/uL Hypochromasia Anisocytosis Sodium (137-145) mmol/L Potassium (3.5-5.1) mmol/L Chloride (98-107) mmol/L Carbon Dioxide (22-30) mmol/L Anion Gap mmol/L BUN (7-17) mg/dL Creatinine (0.52-1.04) mg/dL Est GFR (CKD-EPI)AfAm (>60 ml/min/1.73 sqM) Est GFR (CKD-EPI)NonAf (>60 ml/min/1.73 sqM) Glucose (74-99) mg/dL POC Glucose (mg/dL) 106 (70-110) mg/dL POC Glu Motor Vehicle Lecturer ID Magno Ellis Calcium (8.4-10.2) mg/dL Ionized Calcium Nori (4.5-5.3) mg/dL Phosphorus (2.5-4.5) mg/dL Magnesium (1.6-2.3) mg/dL Total Bilirubin (0.2-1.3) mg/dL AST (14-36) U/L ALT (4-34) U/L Alkaline Phosphatase (38-126) U/L Total Protein (6.3-8.2) g/dL Albumin (3.5-5.0) g/dL Amylase (30-110) U/L Lipase (23-300) U/L TSH (0.465-4.680) mIU/L Free T4 (0.78-2.19) ng/dL HCG, Qual Disposition <Srinath Terry - Last Filed: 09/28/24 14:38> Is patient prescribed a controlled substance at d/c from ED?: No <Luiza Pierson - Last Filed: 09/28/24 19:04> Clinical Impression: Neuropathy Disposition: HOME SELF-CARE Condition: Stable Additional Instructions: Every disease is a spectrum and a small chance still exists that a serious condition could develop, for this reason, please monitor yourself closely for new, changing or worsening symptoms, symptoms that persist beyond 1 week, fever, inability to tolerate/keep down fluids or your medications, inability to follow up with outpatient providers as instructed and should you experience these symptoms or should you have any further concerns for your wellbeing please return to the ED or call 911 immediately. PLEASE call your primary care physician as soon as possible to arrange / discuss plan for followup appointment. Appointment in the next 1-3 days is strongly encouraged if possible. PLEASE let us know here before you leave if there is anything further we can do to be of any assistance. Take care and feel Better! Referrals: Justin Molina MD [Primary Care Provider] - 1-2 days
[2024-09-28 16:53] LABS: Anisocytosis Slight; Basophils % (A) 0 %; Eosinophils # (A) 0.1 k/uL (0-0.7); Eosinophils % (A) 1 %; HCT 40.1 % (34.0-46.0); HGB 12.4 gm/dL (11.4-16.0); Hypochromasia Marked; Lymphocytes % (A) 24 %; MCH 28.5 pg (25.0-35.0); MCHC 30.8 g/dL (31.0-37.0); MCV 92.5 fL (80.0-100.0); Mean Platelet Volume 9.8; Monocytes # (A) 0.5 k/uL (0-1.0); Monocytes % (A) 6 %; Neutrophils # (A) 5.5 k/uL (1.3-7.7); Neutrophils % (A) 67 %; Platelet Count 230 k/uL (150-450); RBC 4.34 m/uL (3.80-5.40); RDW 16.7 % (11.5-15.5); WBC 8.1 k/uL (3.8-10.6)
[2024-09-28 17:16] LABS: ALT 11 U/L (4-34); AST 20 U/L (14-36); African American GFR (CKD) >90 (>60 ml/min/1.73 sqM); Albumin 3.6 g/dL (3.5-5.0); Alkaline Phosphatase 69 U/L (38-126); Amylase 53 U/L (30-110); Anion Gap 16 mmol/L; Blood Urea Nitrogen 7 mg/dL (7-17); Calcium 9.6 mg/dL (8.4-10.2); Carbon Dioxide 21 mmol/L (22-30); Chloride 103 mmol/L (98-107); Glucose 67 mg/dL (74-99); Lipase 50 U/L (23-300); Magnesium 1.9 mg/dL (1.6-2.3); Non-African American GFR(CKD) >90 (>60 ml/min/1.73 sqM); Phosphorus 3.6 mg/dL (2.5-4.5); Potassium 3.6 mmol/L (3.5-5.1); Sodium 140 mmol/L (137-145); Total Protein 6.4 g/dL (6.3-8.2)
[2024-09-28] MEDS: GABAPENTIN 300 MG CAP PO STA (17:40)
[2024-09-28] MEDS: ACETAMINOPHEN TAB 500 MG TAB PO STA (17:41)
[2024-09-28] MEDS: KETOROLAC 15 MG/ML 1 ML VIAL IVP STA (17:42)
[2024-09-28 18:13] LABS: T4, Free (Free Thyroxine) 1.95 ng/dL (0.78-2.19)
[2024-09-28 18:55] LABS: Glucose,Whole Blood 106 mg/dL (70-110)
[2024-09-28] MEDS: traMADol 50 MG STARTER PACK 3 TAB BTL PO STA (19:25)
[2024-09-28 19:27] VITALS: BP 135/92; PULSE 99; RESP 16; TEMP 98.8
== END 2024-09-28 19:35 | disposition home or self-care (01) ==
LOC: EC 12:29
DX: G62.9 Polyneuropathy, unspecified (principal); Z87.891 Personal history of nicotine dependence; Z88.5 Allergy status to narcotic agent; Z91.040 Latex allergy status
CPT/HCPCS: 36415; 84439; 80053; 84443; 82330; 82150; 83690; 83735; 84100; 85025; 84703; 99284; 96374; J1885

== ENCOUNTER 2024-10-05 12:04 | Emergency (ER) | payer OTHER ==
[2024-10-05 12:47] VITALS: TEMP 98.5
[2024-10-05] MEDS: LIDOCAINE 1% INJ 10MG/ML (20 ML MDV) SQ ONE (13:14)
[2024-10-05] MEDS ORDERED: VANCOMYCIN IV PER PHARMACY 1 EACH MISC MISCELLANE PRN (13:17)
--- NOTE | 2024-10-05 13:21 | ED ---
General Adult HPI - General Chief complaint: Skin/Abscess/Foreign Body Stated complaint: Sore on R armpit Time Seen by Provider: 10/05/24 12:48 Source: patient, family, RN notes reviewed, old records reviewed Mode of arrival: ambulatory Limitations: no limitations - History of Present Illness Initial comments: 34-year-old female presenting with recurrent right axillary abscess. Patient had recent abscesses which did require drainage. She states that this has reaccumulated in the right armpit. She denies fever or chills. She states she has felt somewhat lightheaded. She has history of malabsorption status post Glenn-en-Y bypass. - Related Data Home Medications Medication Instructions Recorded Confirmed Asenapine Maleate [Saphris] 10 mg SL HS 07/12/24 09/28/24 Budesonide/Formoterol Fumarate 2 puff INHALATION RT-BID 07/12/24 09/28/24 [Symbicort 160-4.5 Mcg Inhaler] LORazepam [Ativan] 1 mg PO BID PRN 07/12/24 09/28/24 QUEtiapine [SEROquel] 100 mg PO HS 07/12/24 09/28/24 Tiotropium 2.5 Mcg/Puff [Spiriva 2 puff INHALATION RT-DAILY 07/12/24 09/28/24 Respimat 2.5 Mcg] traZODone HCL [Desyrel] 100 mg PO HS 07/12/24 09/28/24 Ondansetron [Zofran] 4 mg PO BID PRN 07/26/24 09/28/24 Nicotine 21Mg/24Hr Patch [Habitrol] 1 patch TRANSDERM DAILY 09/07/24 09/28/24 oxyCODONE HCL [OxyIR] 5 mg PO Q12H 09/07/24 09/28/24 Previous Rx's Medication Instructions Recorded Pantoprazole Sodium [Protonix] 40 mg PO BID #60 tab 09/20/24 Hydrocortisone [Cortef] 20 mg PO BID 30 Days #60 tab 09/21/24 Cephalexin [Keflex] 500 mg PO Q6HR 10 Days #40 cap 10/05/24 Sulfamethox-Tmp 800-160Mg [Bactrim 1 tab PO Q12HR #20 tab 10/05/24 DS 800-160 mg] Allergies Allergy/AdvReac Type Severity Reaction Status Date / Time latex Allergy Rash/Hives Verified 10/05/24 12:41 morphine AdvReac Itching Verified 10/05/24 12:41 Review of Systems ROS Statement: Those systems with pertinent positive or pertinent negative responses have been documented in the HPI. ROS Other: All systems not noted in ROS Statement are negative. Past Medical History Past Medical History: GERD/Reflux, Pulmonary Embolus (PE), Sleep Apnea/CPAP/BIPAP Additional Past Medical History / Comment(s): iron defiency anemia, currently getting iron infusions, no cpap used, pulmonary embolism 02/13/24 History of Any Multi-Drug Resistant Organisms: None Reported Past Surgical History: Bariatric Surgery, Section, Cholecystectomy, Tubal Ligation, Uterine Ablation Additional Past Surgical History / Comment(s): 2008 AND 2015 (c/s) and 2010 (cholecyst). 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 gastric bypass 06/11/24 Past Anesthesia/Blood Transfusion Reactions: No Reported Reaction Past Psychological History: Anxiety, Bipolar, Depression Smoking Status: Former smoker Past Alcohol Use History: None Reported Past Drug Use History: None Reported - Past Family History Mother Family Medical History: Asthma, COPD, Diabetes Mellitus, Hypertension Additional Family Medical History / Comment(s): depression, anxiety, sleep apnea, Father Family Medical History: Hypertension Additional Family Medical History / Comment(s): arthritis General Exam Limitations: no limitations General appearance: alert, in no apparent distress Head exam: Present: atraumatic, normocephalic Eye exam: Present: normal appearance, PERRL ENT exam: Present: normal exam Neck exam: Present: normal inspection. Absent: tenderness, meningismus Respiratory exam: Present: normal lung sounds bilaterally. Absent: respiratory distress, wheezes Cardiovascular Exam: Present: regular rate, normal rhythm GI/Abdominal exam: Present: soft. Absent: distended, tenderness, guarding Extremities exam: Present: other (Right axillary abscess with central fluctuance approximately 4 cm round) Neurological exam: Present: alert, oriented X3, CN II-XII intact. Absent: motor sensory deficit Psychiatric exam: Present: normal affect, normal mood Course Vital Signs 10/05/24 10/05/24 10/05/24 12:41 12:47 13:47 Temperature 98.5 F Pulse Rate 115 H 61 Respiratory 18 17 Rate Blood Pressure 78/58 82/57 89/70 O2 Sat by Pulse 99 98 Oximetry 10/05/24 15:32 Temperature Pulse Rate Respiratory Rate Blood Pressure 114/84 O2 Sat by Pulse Oximetry Procedures - Incision & Drainage Consent Obtained: verbal consent Indication: Abscess Site: upper extremity Size (cm): 4 Anesthetic Used: lidocaine 1% Amount (mLs): 5 I&D Cleaning Method: Chloroprep Sterile Field Used?: Yes Scalpel Used: #11 Ultrasound used: No Needle Aspiration Performed?: No Irrigation Performed?: Yes I&D Drainage Obtained: Pus Culture Obtained?: Yes Patient Tolerated Procedure: well Medical Decision Making - Medical Decision Making Was pt. sent in by a medical professional or institution (STEPHY Wild, BEAD FORMING MACHINE OPERATOR, urgent care, hospital, or fdc...) When possible be specific @ -No Did you speak to anyone other than the patient for history (EMS, parent, family, police, friend...)? What history was obtained from this source @ -No Did you review nursing and triage notes (agree or disagree)? Why? @ -I reviewed and agree with nursing and triage notes Were old charts reviewed (outside hosp., previous admission, EMS record, old EKG, old radiological studies, urgent care reports/EKG's, fdc records)? Report findings @ -No old charts were reviewed Differential Diagnosis: Lymphadenopathy, abscess, cellulitis, hidradenitis suppurativa EKG interpreted by me (3pts min.). @ -As above X-rays interpreted by me (1pt min.). @Sinus rhythm rate of 88 GA interval 163, QRS duration 86, QTc 432 CT interpreted by me (1pt min.). @ -None done U/S interpreted by me (1pt. min.). @ -None done What testing was considered but not performed or refused? (CT, X-rays, U/S, labs)? Why? @ -None What meds were considered but not given or refused? Why? @ -None Did you discuss the management of the patient with other professionals (professionals i.e. STEPHY Wild, BEAD FORMING MACHINE OPERATOR, lab, RT, psych nurse, social services designee, wood tool maker, teacher, property officer, case advocate)? Give summary @ -No Was smoking cessation discussed for >3mins.? @ -No Was critical care preformed (if so, how long)? @ -No Were there social determinants of health that impacted care today? How? (Homelessness, low income, unemployed, alcoholism, drug addiction, transportation, low edu. Level, literacy, decrease access to med. care, [facility], r ehab)? @ -No Was there de-escalation of care discussed even if they declined (Discuss DNR or withdrawal of care, Hospice)? DNR status @ -No What co-morbidities impacted this encounter? (DM, HTN, Smoking, COPD, CAD, Cancer, CVA, ARF, Chemo, Hep., AIDS, mental health diagnosis, sleep apnea, morbid obesity)? @ -None Was patient admitted / discharged? Hospital course, mention meds given and route, prescriptions, significant lab abnormalities, going to OR and other pertinent info. @ -[34-year-old female with right axillary abscess. There is no significant cellulitis. The abscess is approximately 4 cm round, fluctuant. Initial blood pressure is soft. Patient is given IV fluids and given a dose of IV antibiotics in the emergency department. She has a normal lactic acid, normal CMP, CBC r equired multiple attempts to draw and were on was unsuccessful. Ultimately the patient did not want to stay for a fourth blood draw. I would prefer to have the white blood cell count but understand that the patient does not want to be poked again. Her blood pressure improved with fluid. She is afebrile. She wishes to be discharged. She is given strict return parameters and prescribed antibiotics. Undiagnosed new problem with uncertain prognosis? @ -No Drug Therapy requiring intensive monitoring for toxicity (Heparin, Nitro, Insulin, Cardizem)? @ -No Were any procedures done? @ -Yes incision and drainage Diagnosis/symptom? @ -Right axillary abscess Acute, or Chronic, or Acute on Chronic? @Acute Uncomplicated (without systemic symptoms) or Complicated (systemic symptoms)? @ -Default Side effects of treatment? @ -No Exacerbation, Progression, or Severe Exacerbation? @ -No Poses a threat to life or bodily function? How? (Chest pain, [place], [place], pneumonia, PE, COPD, DKA, ARF, appy, cholecystitis, CVA, Diverticulitis, Homicidal, Suicidal, threat to staff... and all critical care pts) @ -Low risk at this time - Lab Data Result diagrams: 10/05/24 13:30 Lab Results 01/24/25 01/24/25 01/24/25 Range/Units 13:30 13:30 13:30 PT 11.1 (10.0-12.5) sec INR 1.0 (<1.2) APTT 21.6 L (22.0-30.0) sec Sodium 138 (137-145) mmol/L Potassium 3.6 (3.5-5.1) mmol/L Chloride 102 (98-107) mmol/L Carbon Dioxide 28 (22-30) mmol/L Anion Gap 8 mmol/L BUN 13 (7-17) mg/dL Creatinine 0.46 L (0.52-1.04) mg/dL Est GFR (CKD-EPI)AfAm >90 (>60 ml/min/1.73 sqM) Est GFR (CKD-EPI)NonAf >90 (>60 ml/min/1.73 sqM) Glucose 83 (74-99) mg/dL Plasma Lactic Acid Case 1.0 (0.7-2.0) mmol/L Calcium 9.6 (8.4-10.2) mg/dL Magnesium 1.7 (1.6-2.3) mg/dL Total Bilirubin 0.6 (0.2-1.3) mg/dL AST 20 (14-36) U/L ALT 9 (4-34) U/L Alkaline Phosphatase 60 (38-126) U/L Total Protein 6.5 (6.3-8.2) g/dL Albumin 3.7 (3.5-5.0) g/dL Disposition Clinical Impression: Abscess, Abscess of right axilla Disposition: HOME SELF-CARE Condition: Good Instructions (If sedation given, give patient instructions): Abscess Incision and Drainage (ED), Abscess (ED) Prescriptions: Sulfamethox-Tmp 800-160Mg [Bactrim DS 800-160 mg] 1 tab PO Q12HR #20 tab Cephalexin [Keflex] 500 mg PO Q6HR 10 Days #40 cap Is patient prescribed a controlled substance at d/c from ED?: No Referrals: Justin Molina MD [Primary Care Provider] - 1-2 days Time of Disposition: 15:33
[2024-10-05] MEDS: VANCOMYCIN 1,250 MG in SODIUM CHLORIDE 0.9% 250 ML IVPB ONE (13:56)
[2024-10-05] MEDS: LACTATED RINGERS 1,000 ML BAG IV STA (13:58)
[2024-10-05 13:59] VITALS: PULSE 61; RESP 17
[2024-10-05 14:08] LABS: ALT 9 U/L (4-34); AST 20 U/L (14-36); African American GFR (CKD) >90 (>60 ml/min/1.73 sqM); Albumin 3.7 g/dL (3.5-5.0); Alkaline Phosphatase 60 U/L (38-126); Anion Gap 8 mmol/L; Blood Urea Nitrogen 13 mg/dL (7-17); Calcium 9.6 mg/dL (8.4-10.2); Carbon Dioxide 28 mmol/L (22-30); Chloride 102 mmol/L (98-107); Glucose 83 mg/dL (74-99); Magnesium 1.7 mg/dL (1.6-2.3); Non-African American GFR(CKD) >90 (>60 ml/min/1.73 sqM); Partial Thromboplastin Time 21.6 sec (22.0-30.0); Potassium 3.6 mmol/L (3.5-5.1); Prothrombin Time 11.1 sec (10.0-12.5); Sodium 138 mmol/L (137-145); Total Bilirubin 0.6 mg/dL (0.2-1.3); Total Protein 6.5 g/dL (6.3-8.2)
[2024-10-05 15:32] VITALS: BP 114/84
[2024-10-05] MEDS ORDERED: VANCOMYCIN 1,250 MG in SODIUM CHLORIDE 0.9% 250 ML IVPB SCH (22:00)
== END 2024-10-05 15:49 | disposition home or self-care (01) ==
LOC: EC 12:04
DX: L02.411 Cutaneous abscess of right axilla (principal); B96.89 Other specified bacterial agents as the cause of diseases classified elsewhere; Z88.5 Allergy status to narcotic agent; Z91.040 Latex allergy status; Z87.891 Personal history of nicotine dependence
CPT/HCPCS: 10060; 99283; 96365; 96366; 36415; 93005; 80053; 83605; 83735; 85610; 85730; 87040; 87070; 87205; J3370; J2003

== ENCOUNTER 2024-11-13 14:19 | Emergency (ER) | payer OTHER ==
[2024-11-13 14:52] LABS: Anisocytosis Slight; Basophils % (A) 0 %; Eosinophils # (A) 0.2 k/uL (0-0.7); Eosinophils % (A) 2 %; HCT 41.5 % (34.0-46.0); Hypochromasia Slight; Lymphocytes # (A) 2.9 k/uL (1.0-4.8); Lymphocytes % (A) 31 %; MCH 28.5 pg (25.0-35.0); MCHC 31.3 g/dL (31.0-37.0); MCV 91.2 fL (80.0-100.0); Mean Platelet Volume 9.2; Monocytes # (A) 0.5 k/uL (0-1.0); Monocytes % (A) 5 %; Neutrophils # (A) 5.8 k/uL (1.3-7.7); Neutrophils % (A) 60 %; Platelet Count 342 k/uL (150-450); RBC 4.55 m/uL (3.80-5.40); RDW 16.8 % (11.5-15.5); WBC 9.6 k/uL (3.8-10.6)
[2024-11-13 15:04] LABS: ALT 25 U/L (4-34); AST 27 U/L (14-36); African American GFR (CKD) >90 (>60 ml/min/1.73 sqM); Albumin 2.9 g/dL (3.5-5.0); Alkaline Phosphatase 75 U/L (38-126); Amylase 62 U/L (30-110); Anion Gap 10 mmol/L; Blood Urea Nitrogen 9 mg/dL (7-17); Calcium 9.1 mg/dL (8.4-10.2); Carbon Dioxide 24 mmol/L (22-30); Chloride 103 mmol/L (98-107); Glucose 88 mg/dL (74-99); Lipase 147 U/L (23-300); Non-African American GFR(CKD) >90 (>60 ml/min/1.73 sqM); Potassium 3.2 mmol/L (3.5-5.1); Sodium 137 mmol/L (137-145); Total Protein 5.7 g/dL (6.3-8.2)
[2024-11-13] MEDS: METOCLOPRAMIDE 5 MG/ML 2 ML VIAL IVP STA (16:45)
[2024-11-13] MEDS: SODIUM CHLORIDE 0.9% 1,000 ML IV STA (16:45)
[2024-11-13] MEDS: MORPHINE SULFATE 4 MG/ML SYRINGE IVP STA (16:46)
--- NOTE | 2024-11-13 17:26 | ED ---
Nausea/Vomiting/Diarrhea HPI - General Source: patient, RN notes reviewed Mode of arrival: wheelchair Limitations: no limitations <Kassandra Madden - Last Filed: 11/13/24 19:03> <Jose Valenzuela - Last Filed: 11/21/24 13:37> - General Chief complaint: Nausea/Vomiting/Diarrhea Stated complaint: Nausea, vomitting Time Seen by Provider: 11/13/24 17:23 - History of Present Illness Initial comments: 34-year-old female presenting for nausea/vomiting x 5 days with epigastric pain. Reports that she has been dealing with the symptoms intermittently recurrent gastroparesis for the past several months. She was recently admitted for the symptoms where they attempted a barium swallow test however patient was unable to tolerate the barium. They recommended transfer to [facility] at this time however patient left AGAINST MEDICAL ADVICE because she states she had to get back to her kids at home. Worsened over the past 5 days with patient not being able to tolerate orals. She had a follow-up with her PCP Dr. Molina today who sent her to the ER. (Kassandra Madden) - Related Data Home Medications Medication Instructions Recorded Confirmed Budesonide/Formoterol Fumarate 2 puff INHALATION RT-BID 07/12/24 11/13/24 [Symbicort 160-4.5 Mcg Inhaler] LORazepam [Ativan] 1 mg PO BID PRN 07/12/24 11/13/24 QUEtiapine [SEROquel] 100 mg PO HS 07/12/24 11/13/24 Tiotropium 2.5 Mcg/Puff [Spiriva 2 puff INHALATION RT-DAILY 07/12/24 11/13/24 Respimat 2.5 Mcg] traZODone HCL [Desyrel] 100 mg PO HS 07/12/24 11/13/24 Ondansetron [Zofran] 4 mg PO BID PRN 07/26/24 11/13/24 Nicotine 21Mg/24Hr Patch [Habitrol] 1 patch TRANSDERM DAILY 09/07/24 11/13/24 oxyCODONE HCL [OxyIR] 5 mg PO Q12H PRN 09/07/24 11/13/24 Ferrous Sulfate [Iron (65 MG 325 mg PO DAILY 10/18/24 11/13/24 Elemental)] Propranolol [Inderal] 20 mg PO BID 10/18/24 11/13/24 HYDROcodone/APAP 5-325MG [[place] 1 tab PO BID PRN 11/13/24 11/13/24 5-325] Potassium Chloride ER [K-Dur 20] 20 meq PO Q2D 11/13/24 11/13/24 Previous Rx's Medication Instructions Recorded Pantoprazole Sodium [Protonix] 40 mg PO BID #60 tab 09/20/24 Hydrocortisone [Cortef] 20 mg PO BID 30 Days #60 tab 09/21/24 Allergies Allergy/AdvReac Type Severity Reaction Status Date / Time latex Allergy Rash/Hives Verified 11/13/24 17:54 morphine AdvReac Itching Verified 11/13/24 17:54 Review of Systems ROS Other: All systems not noted in ROS Statement are negative. <Kassandra Madden - Last Filed: 11/13/24 19:03> ROS Other: All systems not noted in ROS Statement are negative. <Jose Valenzuela - Last Filed: 11/21/24 13:37> ROS Statement: Those systems with pertinent positive or pertinent negative responses have been documented in the HPI. Past Medical History Past Medical History: GERD/Reflux, Pulmonary Embolus (PE), Sleep Apnea/CPAP/BIPAP Additional Past Medical History / Comment(s): iron defiency anemia, currently getting iron infusions, no cpap used, pulmonary embolism 02/13/24 History of Any Multi-Drug Resistant Organisms: None Reported Past Surgical History: Bariatric Surgery, Section, Cholecystectomy, Tubal Ligation, Uterine Ablation Additional Past Surgical History / Comment(s): 2008 AND 2015 (c/s) and 2010 (cholecyst). 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 gastric bypass 06/11/24 Past Anesthesia/Blood Transfusion Reactions: No Reported Reaction Past Psychological History: Anxiety, Bipolar, Depression Smoking Status: Former smoker Past Alcohol Use History: None Reported Past Drug Use History: None Reported - Past Family History Mother Family Medical History: Asthma, COPD, Diabetes Mellitus, Hypertension Additional Family Medical History / Comment(s): depression, anxiety, sleep apnea, Father Family Medical History: Hypertension Additional Family Medical History / Comment(s): arthritis <Kassandra Madden - Last Filed: 11/13/24 19:03> General Exam Limitations: no limitations General appearance: alert, in no apparent distress Head exam: Present: atraumatic, normocephalic, normal inspection GI/Abdominal exam: Present: soft, tenderness (Mild epigastric tenderness), normal bowel sounds. Absent: distended, guarding, rebound, rigid Neurological exam: Present: alert, oriented X3 Psychiatric exam: Present: normal affect, normal mood Skin exam: Present: warm, dry, intact, normal color. Absent: rash <MaddenKassandra - Last Filed: 11/13/24 19:03> Course Vital Signs 11/13/24 11/13/24 11/13/24 14:27 17:49 20:36 Temperature 98.1 F 97.9 F 97.9 F Pulse Rate 104 H 105 H 111 H Respiratory 20 19 19 Rate Blood Pressure 108/76 102/70 112/81 O2 Sat by Pulse 95 99 100 Oximetry 11/14/24 11/14/24 11/14/24 07:56 09:56 12:58 Temperature Pulse Rate 115 H 117 H 94 Respiratory 18 18 18 Rate Blood Pressure 115/88 99/71 100/72 O2 Sat by Pulse 95 100 99 Oximetry 11/14/24 11/14/24 11/14/24 14:06 17:14 18:04 Temperature Pulse Rate 95 104 H 109 H Respiratory 18 18 16 Rate Blood Pressure 97/77 99/66 111/86 O2 Sat by Pulse 100 100 97 Oximetry 11/14/24 11/14/24 11/15/24 21:30 23:00 00:00 Temperature 98.2 F Pulse Rate 102 H Respiratory 18 Rate Blood Pressure 101/74 113/81 106/77 O2 Sat by Pulse 98 98 98 Oximetry 11/15/24 11/15/24 11/15/24 01:00 02:32 03:32 Temperature Pulse Rate 102 H 101 H 99 Respiratory 18 18 Rate Blood Pressure 109/87 101/74 104/73 O2 Sat by Pulse 98 100 98 Oximetry 11/15/24 11/15/24 11/15/24 05:41 06:45 08:13 Temperature 97.9 F 98.1 F Pulse Rate 106 H 113 H 113 H Respiratory 18 16 18 Rate Blood Pressure 96/66 106/84 115/79 O2 Sat by Pulse 98 97 99 Oximetry 11/15/24 11/15/24 11/15/24 14:41 18:00 20:17 Temperature Pulse Rate 76 79 86 Respiratory 18 18 18 Rate Blood Pressure 100/69 120/87 129/90 O2 Sat by Pulse 99 98 100 Oximetry 11/16/24 11/16/24 11/16/24 01:37 06:45 09:20 Temperature Pulse Rate 96 83 84 Respiratory 18 17 18 Rate Blood Pressure 98/68 110/82 112/98 O2 Sat by Pulse 98 100 98 Oximetry 11/16/24 11/17/24 11/17/24 17:03 00:05 03:34 Temperature 98.3 F Pulse Rate 80 87 72 Respiratory 18 18 18 Rate Blood Pressure 132/92 128/91 123/87 O2 Sat by Pulse 99 100 98 Oximetry 11/17/24 11/17/24 11/17/24 12:40 19:19 21:06 Temperature 98.7 F Pulse Rate 91 87 96 Respiratory 18 18 16 Rate Blood Pressure 117/82 161/101 130/93 O2 Sat by Pulse 98 98 99 Oximetry 11/18/24 11/18/24 11/18/24 03:35 06:40 09:47 Temperature 98.0 F Pulse Rate 82 86 84 Respiratory 18 18 18 Rate Blood Pressure 133/92 128/87 149/99 O2 Sat by Pulse 100 100 100 Oximetry 11/18/24 11/18/24 11/18/24 13:01 16:10 18:45 Temperature 98.7 F 98.7 F 98.5 F Pulse Rate 83 76 70 Respiratory 16 16 18 Rate Blood Pressure 140/98 125/89 128/91 O2 Sat by Pulse 99 97 100 Oximetry 11/18/24 11/19/24 11/19/24 22:42 06:12 11:37 Temperature 98.1 F Pulse Rate 87 90 89 Respiratory 18 18 18 Rate Blood Pressure 132/90 134/90 139/96 O2 Sat by Pulse 99 100 100 Oximetry 11/19/24 11/19/24 11/19/24 12:32 14:25 18:00 Temperature 98.2 F 98.3 F Pulse Rate 81 87 88 Respiratory 18 18 18 Rate Blood Pressure 133/92 134/87 148/99 O2 Sat by Pulse 97 96 98 Oximetry 11/19/24 11/20/24 11/20/24 23:00 06:00 09:53 Temperature 98.2 F 98.1 F Pulse Rate 76 82 79 Respiratory 16 15 16 Rate Blood Pressure 138/87 146/86 143/92 O2 Sat by Pulse 98 97 97 Oximetry 11/20/24 11/20/24 11/20/24 14:55 18:25 21:20 Temperature 98.3 F 98.1 F Pulse Rate 98 94 89 Respiratory 16 18 16 Rate Blood Pressure 119/90 128/85 126/74 O2 Sat by Pulse 98 100 95 Oximetry 11/21/24 11/21/24 11/21/24 02:10 08:14 12:26 Temperature 98.7 F 99.2 F Pulse Rate 86 76 93 Respiratory 16 12 12 Rate Blood Pressure 145/91 129/90 124/89 O2 Sat by Pulse 100 98 98 Oximetry Medical Decision Making - Lab Data Result diagrams: 11/13/24 14:43 11/13/24 14:43 <Kassandra Madden - Last Filed: 11/13/24 19:03> - Lab Data Result diagrams: 11/20/24 06:15 11/20/24 06:15 <Jose Valenzuela - Last Filed: 11/21/24 13:37> - Medical Decision Making Was pt. sent in by a medical professional or institution (, PA, LINOTYPE MACHINIST, urgent care, hospital, or [facility]...) When possible be specific @ -No Did you speak to anyone other than the patient for history (EMS, parent, family, police, friend...)? What history was obtained from this source @ -No Did you review nursing and triage notes (agree or disagree)? Why? @ -I reviewed and agree with nursing and triage notes Were old charts reviewed (outside hosp., previous admission, EMS record, old EKG, old radiological studies, urgent care reports/EKG's, [facility] records)? Report findings @ -Previous admission chart reviewed including CT abdomen pelvis on October 20 which reveals postsurgical changes however no acute process Differential Diagnosis (chest pain, altered mental status, abdominal pain women, abdominal pain men, vaginal bleeding, weakness, fever, dyspnea, syncope, headache, dizziness, GI bleed, back pain, seizure, CVA, palpatations, mental health, musculoskeletal)? @ -Differential Abdominal Pain Women: Appendicitis, Cholecystitis, diverticulosis, ischemic bowel, pancreatitis, hepatitis, UTI, gastroenteritis, AAA, incarcerated hernia, bowel obstruction, constipation, inflammatory bowel, hepatitis, peptic ulcer disease, splenic inf arction, perforated viscus, vulvitis, ovarian torsion, PID, kidney stone, placenta abruption, this is not meant to be an all-inclusive list EKG interpreted by me (3pts min.). @ -None X-rays interpreted by me (1pt min.). @ -None done CT interpreted by me (1pt min.). @ -None done U/S interpreted by me (1pt. min.). @ -None done What testing was considered but not performed or refused? (CT, X-rays, U/S, labs)? Why? @ -CT deferred due to recent negative CT abdomen for same symptoms What meds were considered but not given or refused? Why? @ -None Did you discuss the management of the patient with other professionals (professionals i.e. , PA, LINOTYPE MACHINIST, lab, RT, psych nurse, social services specialist, word processing operator, teacher, employment security officer, case fitter)? Give summary @ -I spoke with Dr. Molina who recommends transfer to [facility] at this time as patient has had multiple admissions for same symptoms. I then spoke with transfer team at [facility] who accepts transfer for recurrent gastroparesis Was smoking cessation discussed for >3mins.? @ -No Was critical care preformed (if so, how long)? @ -No Were there social determinants of health that impacted care today? How? (Homelessness, low income, unemployed, alcoholism, drug addiction, transportation, low edu. Level, literacy, decrease access to med. care, fci, rehab)? @ -No Was there de-escalation of care discussed even if they declined (Discuss DNR or withdrawal of care, Hospice)? DNR status @ -No What co-morbidities impacted this encounter? (DM, HTN, Smoking, COPD, CAD, Cancer, CVA, ARF, Chemo, Hep., AIDS, mental health diagnosis, sleep apnea, morbid obesity)? @ -None Was patient admitted / discharged? Hospital course, mention meds given and route, prescriptions, significant lab abnormalities, going to OR and other pertinent info. @ -Transferred. 34-year-old female presenting for nausea/vomiting and abdominal pain x 5 days. Unable to tolerate orals. History of recurrent gastroparesis status post gastric surgeries at [facility] last year. Patient is mildly tachycardic, otherwise vitals within acceptable limits. There is mild epigastric tenderness, however abdomen is nonsurgical. Patient is provided with IV fluids. Lab work remarkable for mild hypokalemia of 3.2. Urinalysis reveals 2+ ketones. Patient will be transferred to [facility] for recurrent gastroparesis. Accepting physician is hospitalist Dr. Edwards. [facility] on consult for medical management until transfer will take place. Case was discussed with my ED attending Dr. Arredondo. Undiagnosed new problem with uncertain prognosis? @ -No Drug Therapy requiring intensive monitoring for toxicity (Heparin, Nitro, Insulin, Cardizem)? @ -No Were any procedures done? @ -No Diagnosis/symptom? @ -Recurrent gastroparesis Acute, or Chronic, or Acute on Chronic? @ -Acute Uncomplicated (without systemic symptoms) or Complicated (systemic symptoms)? @ -Complicated Side effects of treatment? @ -No Exacerbation, Progression, or Severe Exacerbation? @ -No Poses a threat to life or bodily function? How? (Chest pain, [place], [place], pneumonia, PE, COPD, DKA, ARF, appy, cholecystitis, CVA, Diverticulitis, Homicidal, Suicidal, threat to staff... and all critical care pts) @ -Unlikely at this time (Kassandra Madden) Was patient admitted / discharged? Hospital course, mention meds given and route, prescriptions, significant lab abnormalities, going to OR and other pertinent info. @ -We continue to call [facility] and they are not moving her up the list of transfer so they cannot give us a time when she can be transferred. [facility] has been consulted on her and they decided that the patient should just get admitted to our facility. I spoke with Dr. Molina who is patient it is and he wanted to admit the patient to himself so I admitted the patient to Dr. Molina Undiagnosed new problem with uncertain prognosis? @ -No Drug Therapy requiring intensive monitoring for toxicity (Heparin, Nitro, Insulin, Cardizem)? @ -No Were any procedures done? @ -No Diagnosis/symptom? @ -Gastroparesis Acute, or Chronic, or Acute on Chronic? @ -Acute Uncomplicated (without systemic symptoms) or Complicated (systemic symptoms)? @ -Complicated Side effects of treatment? @ -No Exacerbation, Progression, or Severe Exacerbation? @ -No Poses a threat to life or bodily function? How? (Chest pain, [place], [place], pneumonia, PE, COPD, DKA, ARF, appy, cholecystitis, CVA, Diverticulitis, Homicidal, Suicidal, threat to staff... and all critical care pts) @ -No (oJse Valenzuela) - Lab Data Lab Results 11/13/24 11/13/24 11/13/24 Range/Units 14:43 14:43 18:09 WBC 9.6 (3.8-10.6) k/uL RBC 4.55 (3.80-5.40) m/uL Hgb 13.0 (11.4-16.0) gm/dL Hct 41.5 (34.0-46.0) % MCV 91.2 (80.0-100.0) fL MCH 28.5 (25.0-35.0) pg MCHC 31.3 (31.0-37.0) g/dL RDW 16.8 H (11.5-15.5) % Plt Count 342 (150-450) k/uL MPV 9.2 Neutrophils % 60 % Lymphocytes % 31 % Monocytes % 5 % Eosinophils % 2 % Basophils % 0 % Neutrophils # 5.8 (1.3-7.7) k/uL Lymphocytes # 2.9 (1.0-4.8) k/uL Monocytes # 0.5 (0-1.0) k/uL Eosinophils # 0.2 (0-0.7) k/uL Basophils # 0.0 (0-0.2) k/uL Hypochromasia Slight Anisocytosis Slight Sodium 137 (137-145) mmol/L Potassium 3.2 L (3.5-5.1) mmol/L Chloride 103 (98-107) mmol/L Carbon Dioxide 24 (22-30) mmol/L Anion Gap 10 mmol/L BUN 9 (7-17) mg/dL Creatinine 0.38 L (0.52-1.04) mg/dL Est GFR (CKD-EPI)AfAm >90 (>60 ml/min/1.73 sqM) Est GFR (CKD-EPI)NonAf >90 (>60 ml/min/1.73 sqM) Glucose 88 (74-99) mg/dL POC Glucose (mg/dL) (70-110) mg/dL POC Glu Thermoforming Machine Operator ID Calcium 9.1 (8.4-10.2) mg/dL Magnesium (1.6-2.3) mg/dL Total Bilirubin 1.0 (0.2-1.3) mg/dL AST 27 (14-36) U/L ALT 25 (4-34) U/L Alkaline Phosphatase 75 (38-126) U/L Total Protein 5.7 L (6.3-8.2) g/dL Albumin 2.9 L (3.5-5.0) g/dL Amylase 62 (30-110) U/L Lipase 147 (23-300) U/L Vitamin B12 (200.0-944.0) pg/mL RBC Folate (280 - 791) ng/mL Urine Color Dark Yellow Urine Appearance Cloudy H (Clear) Urine pH 6.0 (5.0-8.0) Ur Specific [place] 1.047 H (1.001-1.035) Urine Protein 1+ H (Negative) Urine Glucose (UA) Negative (Negative) Urine Ketones 2+ H (Negative) Urine Blood Negative (Negative) Urine Nitrite Negative (Negative) Urine Bilirubin Negative (Negative) Urine Urobilinogen 8.0 (<2.0) mg/dL Ur Leukocyte Esterase Negative (Negative) Urine RBC 23 H (0-5) /hpf Urine WBC 11 H (0-5) /hpf Urine Mucus Many H (None) /hpf 11/14/24 11/15/24 11/15/24 Range/Units 17:17 05:59 05:59 WBC 6.9 (3.8-10.6) k/uL RBC 3.84 (3.80-5.40) m/uL Hgb 11.0 L (11.4-16.0) gm/dL Hct 36.3 (34.0-46.0) % MCV 94.5 (80.0-100.0) fL MCH 28.8 (25.0-35.0) pg MCHC 30.5 L (31.0-37.0) g/dL RDW 16.8 H (11.5-15.5) % Plt Count 262 (150-450) k/uL MPV 8.9 Neutrophils % 70 % Lymphocytes % 25 % Monocytes % 3 % Eosinophils % 0 % Basophils % 0 % Neutrophils # 4.8 (1.3-7.7) k/uL Lymphocytes # 1.7 (1.0-4.8) k/uL Monocytes # 0.2 (0-1.0) k/uL Eosinophils # 0.0 (0-0.7) k/uL Basophils # 0.0 (0-0.2) k/uL Hypochromasia Marked Anisocytosis Slight Sodium 136 L (137-145) mmol/L Potassium 3.4 L (3.5-5.1) mmol/L Chloride 106 (98-107) mmol/L Carbon Dioxide 22 (22-30) mmol/L Anion Gap 8 mmol/L BUN 7 (7-17) mg/dL Creatinine 0.27 L (0.52-1.04) mg/dL Est GFR (CKD-EPI)AfAm >90 (>60 ml/min/1.73 sqM) Est GFR (CKD-EPI)NonAf >90 (>60 ml/min/1.73 sqM) Glucose 89 (74-99) mg/dL POC Glucose (mg/dL) 89 (70-110) mg/dL POC Glu Thermoforming Machine Operator ID Magno Ellis Calcium 8.5 (8.4-10.2) mg/dL Magnesium (1.6-2.3) mg/dL Total Bilirubin 0.8 (0.2-1.3) mg/dL AST 33 (14-36) U/L ALT 25 (4-34) U/L Alkaline Phosphatase 59 (38-126) U/L Total Protein 5.0 L (6.3-8.2) g/dL Albumin 2.4 L (3.5-5.0) g/dL Amylase (30-110) U/L Lipase (23-300) U/L Vitamin B12 (200.0-944.0) pg/mL RBC Folate (280 - 791) ng/mL Urine Color Urine Appearance (Clear) Urine pH (5.0-8.0) Ur Specific [place] (1.001-1.035) Urine Protein (Negative) Urine Glucose (UA) (Negative) Urine Ketones (Negative) Urine Blood (Negative) Urine Nitrite (Negative) Urine Bilirubin (Negative) Urine Urobilinogen (<2.0) mg/dL Ur Leukocyte Esterase (Negative) Urine RBC (0-5) /hpf Urine WBC (0-5) /hpf Urine Mucus (None) /hpf 11/15/24 11/18/24 11/18/24 Range/Units 05:59 07:30 07:30 WBC 8.1 (3.8-10.6) k/uL RBC 3.45 L (3.80-5.40) m/uL Hgb 9.9 L (11.4-16.0) gm/dL Hct 31.8 L (34.0-46.0) % MCV 92.2 (80.0-100.0) fL MCH 28.6 (25.0-35.0) pg MCHC 31.1 (31.0-37.0) g/dL RDW 17.0 H (11.5-15.5) % Plt Count 195 (150-450) k/uL MPV 9.7 Neutrophils % % Lymphocytes % % Monocytes % % Eosinophils % % Basophils % % Neutrophils # (1.3-7.7) k/uL Lymphocytes # (1.0-4.8) k/uL Monocytes # (0-1.0) k/uL Eosinophils # (0-0.7) k/uL Basophils # (0-0.2) k/uL Hypochromasia Moderate Anisocytosis Slight Sodium 137 (137-145) mmol/L Potassium 3.2 L (3.5-5.1) mmol/L Chloride 106 (98-107) mmol/L Carbon Dioxide 27 (22-30) mmol/L Anion Gap 4 mmol/L BUN 7 (7-17) mg/dL Creatinine 0.32 L (0.52-1.04) mg/dL Est GFR (CKD-EPI)AfAm >90 (>60 ml/min/1.73 sqM) Est GFR (CKD-EPI)NonAf >90 (>60 ml/min/1.73 sqM) Glucose 79 (74-99) mg/dL POC Glucose (mg/dL) (70-110) mg/dL POC Glu Thermoforming Machine Operator ID Calcium 7.9 L (8.4-10.2) mg/dL Magnesium 1.6 1.5 L (1.6-2.3) mg/dL Total Bilirubin (0.2-1.3) mg/dL AST (14-36) U/L ALT (4-34) U/L Alkaline Phosphatase (38-126) U/L Total Protein (6.3-8.2) g/dL Albumin (3.5-5.0) g/dL Amylase (30-110) U/L Lipase (23-300) U/L Vitamin B12 (200.0-944.0) pg/mL RBC Folate (280 - 791) ng/mL Urine Color Urine Appearance (Clear) Urine pH (5.0-8.0) Ur Specific [place] (1.001-1.035) Urine Protein (Negative) Urine Glucose (UA) (Negative) Urine Ketones (Negative) Urine Blood (Negative) Urine Nitrite (Negative) Urine Bilirubin (Negative) Urine Urobilinogen (<2.0) mg/dL Ur Leukocyte Esterase (Negative) Urine RBC (0-5) /hpf Urine WBC (0-5) /hpf Urine Mucus (None) /hpf 11/20/24 11/20/24 11/20/24 Range/Units 06:15 06:15 06:15 WBC 7.6 (3.8-10.6) k/uL RBC 3.79 L (3.80-5.40) m/uL Hgb 10.5 L (11.4-16.0) gm/dL Hct 34.7 (34.0-46.0) % MCV 91.7 (80.0-100.0) fL MCH 27.6 (25.0-35.0) pg MCHC 30.1 L (31.0-37.0) g/dL RDW 17.0 H (11.5-15.5) % Plt Count 198 (150-450) k/uL MPV 9.8 Neutrophils % % Lymphocytes % % Monocytes % % Eosinophils % % Basophils % % Neutrophils # (1.3-7.7) k/uL Lymphocytes # (1.0-4.8) k/uL Monocytes # (0-1.0) k/uL Eosinophils # (0-0.7) k/uL Basophils # (0-0.2) k/uL Hypochromasia Slight Anisocytosis Slight Sodium 137 (137-145) mmol/L Potassium 3.6 (3.5-5.1) mmol/L Chloride 104 (98-107) mmol/L Carbon Dioxide 29 (22-30) mmol/L Anion Gap 4 mmol/L BUN 9 (7-17) mg/dL Creatinine 0.33 L (0.52-1.04) mg/dL Est GFR (CKD-EPI)AfAm >90 (>60 ml/min/1.73 sqM) Est GFR (CKD-EPI)NonAf >90 (>60 ml/min/1.73 sqM) Glucose 82 (74-99) mg/dL POC Glucose (mg/dL) (70-110) mg/dL POC Glu Thermoforming Machine Operator ID Calcium 8.4 (8.4-10.2) mg/dL Magnesium 1.8 (1.6-2.3) mg/dL Total Bilirubin (0.2-1.3) mg/dL AST (14-36) U/L ALT (4-34) U/L Alkaline Phosphatase (38-126) U/L Total Protein (6.3-8.2) g/dL Albumin (3.5-5.0) g/dL Amylase (30-110) U/L Lipase (23-300) U/L Vitamin B12 1114.0 H (200.0-944.0) pg/mL RBC Folate (280 - 791) ng/mL Urine Color Urine Appearance (Clear) Urine pH (5.0-8.0) Ur Specific [place] (1.001-1.035) Urine Protein (Negative) Urine Glucose (UA) (Negative) Urine Ketones (Negative) Urine Blood (Negative) Urine Nitrite (Negative) Urine Bilirubin (Negative) Urine Urobilinogen (<2.0) mg/dL Ur Leukocyte Esterase (Negative) Urine RBC (0-5) /hpf Urine WBC (0-5) /hpf Urine Mucus (None) /hpf 11/20/24 Range/Units 06:15 WBC (3.8-10.6) k/uL RBC (3.80-5.40) m/uL Hgb (11.4-16.0) gm/dL Hct (34.0-46.0) % MCV (80.0-100.0) fL MCH (25.0-35.0) pg MCHC (31.0-37.0) g/dL RDW (11.5-15.5) % Plt Count (150-450) k/uL MPV Neutrophils % % Lymphocytes % % Monocytes % % Eosinophils % % Basophils % % Neutrophils # (1.3-7.7) k/uL Lymphocytes # (1.0-4.8) k/uL Monocytes # (0-1.0) k/uL Eosinophils # (0-0.7) k/uL Basophils # (0-0.2) k/uL Hypochromasia Anisocytosis Sodium (137-145) mmol/L Potassium (3.5-5.1) mmol/L Chloride (98-107) mmol/L Carbon Dioxide (22-30) mmol/L Anion Gap mmol/L BUN (7-17) mg/dL Creatinine (0.52-1.04) mg/dL Est GFR (CKD-EPI)AfAm (>60 ml/min/1.73 sqM) Est GFR (CKD-EPI)NonAf (>60 ml/min/1.73 sqM) Glucose (74-99) mg/dL POC Glucose (mg/dL) (70-110) mg/dL POC Glu Thermoforming Machine Operator ID Calcium (8.4-10.2) mg/dL Magnesium (1.6-2.3) mg/dL Total Bilirubin (0.2-1.3) mg/dL AST (14-36) U/L ALT (4-34) U/L Alkaline Phosphatase (38-126) U/L Total Protein (6.3-8.2) g/dL Albumin (3.5-5.0) g/dL Amylase (30-110) U/L Lipase (23-300) U/L Vitamin B12 (200.0-944.0) pg/mL RBC Folate 515 (280 - 791) ng/mL Urine Color Urine Appearance (Clear) Urine pH (5.0-8.0) Ur Specific [place] (1.001-1.035) Urine Protein (Negative) Urine Glucose (UA) (Negative) Urine Ketones (Negative) Urine Blood (Negative) Urine Nitrite (Negative) Urine Bilirubin (Negative) Urine Urobilinogen (<2.0) mg/dL Ur Leukocyte Esterase (Negative) Urine RBC (0-5) /hpf Urine WBC (0-5) /hpf Urine Mucus (None) /hpf Disposition Time of Disposition: 19:02 - Out of Hospital Transfer - Req. Specs Out of Hospital Transfer - Requested Specifics: Other Non-Acute ([facility] Direct Admission) <Kassandra Madden - Last Filed: 11/13/24 19:03> <Jose Valenzuela - Last Filed: 11/21/24 13:37> Clinical Impression: Gastroparesis Disposition: ADMITTED IP TO THIS [facility] Condition: Fair Referrals: Justin Molina MD [Primary Care Provider] - 1-2 days
[2024-11-13] MEDS: LORazepam 1 MG TAB PO STA (17:47)
[2024-11-13 18:31] LABS: Appearance,Urine Cloudy (Clear); Bilirubin,Urine Negative (Negative); Blood,Urine Negative (Negative); Color,Urine Dark Yellow; Glucose,Urine (UA) Negative (Negative); Ketones,Urine 2+ (Negative); Leukocyte Esterase,Urine Negative (Negative); Mucus,Urine Many /hpf; Nitrite,Urine Negative (Negative); Protein,Urine 1+ (Negative); RBC,Urine 23 /hpf (0-5); WBC,Urine 11 /hpf (0-5)
[2024-11-13 18:50] LABS: Specific Gravity,Urine 1.047 (1.001-1.035)
[2024-11-13] MEDS ORDERED: NALOXONE 0.4 MG/ML 1 ML VIAL IV PRN (18:59)
[2024-11-13] MEDS: POTASSIUM CHLORIDE ER 20 MEQ TAB.ER PO STA (19:23)
[2024-11-13] MEDS: SODIUM CHLORIDE 0.9% 1,000 ML IV SCH (19:24)
[2024-11-13] MEDS: HYDROmorphone 0.5 MG/0.5 ML SYRINGE IVP PRN (20:37)
[2024-11-13] MEDS: HYDROmorphone 1 MG/ML 1 ML SYRINGE IVP PRN (23:47)
--- NOTE | 2024-11-14 02:19 | P.CONS ---
History of Present Illness - Reason for Consult Consult date: 11/13/24 - Chief Complaint Nausea and vomiting - History of Present Illness History of present illness; Patient is a 34-year-old female with history of bipolar, GERD, anxiety, chronic pain, TERESO with history of gastric bypass 05/2024, and gastric sleeve 12/2023 who presents for nausea and vomiting. Patient states she has not been having chronic symptoms of recurrent gastroparesis for months. She was recently seen in this ER but had to leave AMA to care for her children. Today she states her nausea and vomiting has continued to progress. She has not been able to tolerate oral intake for the last few days. She has transfer placed for [facility] where she completed her gastric bypass. Zofran at home has not improved her symptoms. Patient reports absence of fever, chills, chest pain, palpitations, diaphoresis, dyspnea, cough, abdominal pain, constipation, diarrhea, myalgia, dizziness, headache, and dysuria. Spoke with the ER physician, patient seen for medical consultation, awaiting transfer [facility]. REVIEW OF SYSTEMS: Pertinent positives and negatives noted in HPI. PHYSICAL EXAMINATION: Vitals reviewed GENERAL: Resting comfortably in bed. EYES: PERRL, no scleral injection or icterus. No vision loss HENT: Normocephalic, atraumatic, hearing grossly intact, moist mucous membranes, oral thrush NECK: No tracheal deviation, full range of motion. CARDIOVASCULAR: S1 and S2 present. No murmurs, rubs, or gallops. PULMONARY: Chest is clear to auscultation, no wheezing, rhonchi, or crackles. ABDOMEN: Soft, generalized abdominal tenderness, nondistended. No palpable organomegaly. MUSCULOSKELETAL: No apparent joint swelling and deformities. EXTREMITIES: No apparent cyanosis, clubbing. No pedal edema. NEUROLOGICAL: Alert and oriented. Gross neurological examination with no apparent focal deficits. SKIN: No apparent rashes. ER FINDINGS: Labs significant for WBC 9.6, hemoglobin 13.0, sodium 137, potassium 3.2, creatinine 0.38, UA significant for cloudy appearance, specific gravity 1.047, urine protein 1+, ketones 2+, urine RBC 23 Assessment and Plan: In summary, patient is a 34-year-old female with history of bipolar, GERD, anxiety, chronic pain, TERESO with history of gastric bypass 05/2024, and gastric sleeve 12/2023 who presents for nausea and vomiting. # Gastroparesis likely secondary to gastric bypass Continue Zofran 4 mg IVP every 8 hour Continue pantoprazole 40 mg p.o. twice daily Awaiting transfer to [facility] for higher level care and further evaluation #Hypokalemia likely due to vomiting Given potassium chloride 40 mEq Continue potassium chloride 20 mEq every 2 days Monitor CMP #Ketosis likely due to starvation Increase oral intake as tolerated Monitor for worsening symptoms Chronic Medical Conditions #GERD #Chronic pain #Anxiety #TERESO Resume home medications DVT ppx: Subq Lovenox 40 meq daily Code status: Full code F: IV Normal saline 20 mL/hr E: Monitor potassium N: Regular diet A: Ambulatory Anticipated discharge place: Transfer [facility] Anticipated discharge time: When bed available Dictation was produced using [employer] dictation software. Please excuse any grammatical, word or spelling errors. I have seen and evaluated the patient today. I Discussed the case with the resident and agree with the resident's findings I edited the assessment and plan as necessary as documented in the resident's note. Past Medical History Past Medical History: GERD/Reflux, Pulmonary Embolus (PE), Sleep Apnea/CPAP/BIPAP Additional Past Medical History / Comment(s): iron defiency anemia, pulmonary embolism 02/13/24 History of Any Multi-Drug Resistant Organisms: None Reported Past Surgical History: Bariatric Surgery, Section, Cholecystectomy, Tubal Ligation, Uterine Ablation Additional Past Surgical History / Comment(s): 2008 AND 2015 (c/s) and 2010 (cholecyst). 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 gastric bypass 06/11/24 Past Anesthesia/Blood Transfusion Reactions: No Reported Reaction Past Psychological History: Anxiety, Bipolar, Depression Smoking Status: Former smoker Past Alcohol Use History: None Reported Past Drug Use History: None Reported - Past Family History Mother Family Medical History: Asthma, COPD, Diabetes Mellitus, Hypertension Additional Family Medical History / Comment(s): depression, anxiety, sleep apnea, Father Family Medical History: Hypertension Additional Family Medical History / Comment(s): arthritis Medications and Allergies Home Medications Medication Instructions Recorded Confirmed Type Budesonide/Formoterol Fumarate 2 puff INHALATION RT-BID 07/12/24 11/13/24 History [Symbicort 160-4.5 Mcg Inhaler] LORazepam [Ativan] 1 mg PO BID PRN 07/12/24 11/13/24 History QUEtiapine [SEROquel] 100 mg PO HS 07/12/24 11/13/24 History Tiotropium 2.5 Mcg/Puff [Spiriva 2 puff INHALATION RT-DAILY 07/12/24 11/13/24 History Respimat 2.5 Mcg] traZODone HCL [Desyrel] 100 mg PO HS 07/12/24 11/13/24 History Ondansetron [Zofran] 4 mg PO BID PRN 07/26/24 11/13/24 History Nicotine 21Mg/24Hr Patch [Habitrol] 1 patch TRANSDERM DAILY 09/07/24 11/13/24 History oxyCODONE HCL [OxyIR] 5 mg PO Q12H PRN 09/07/24 11/13/24 History Pantoprazole Sodium [Protonix] 40 mg PO BID #60 tab 09/20/24 11/13/24 Rx Hydrocortisone [Cortef] 20 mg PO BID 30 Days #60 tab 09/21/24 11/13/24 Rx Ferrous Sulfate [Iron (65 MG 325 mg PO DAILY 10/18/24 11/13/24 History Elemental)] Propranolol [Inderal] 20 mg PO BID 10/18/24 11/13/24 History HYDROcodone/APAP 5-325MG [[place] 1 tab PO BID PRN 11/13/24 11/13/24 History 5-325] Potassium Chloride ER [K-Dur 20] 20 meq PO Q2D 11/13/24 11/13/24 History Allergies Allergy/AdvReac Type Severity Reaction Status Date / Time latex Allergy Rash/Hives Verified 11/13/24 17:54 morphine AdvReac Itching Verified 11/13/24 17:54 Physical Exam Vitals: Vital Signs Temp Pulse Resp BP Pulse Ox 11/13/24 17:49 97.9 F 105 H 19 102/70 99 11/13/24 14:27 98.1 F 104 H 20 108/76 95 Intake and Output 11/13/24 11/13/24 11/13/24 06:59 14:59 22:59 Other: Weight 63.049 kg Results CBC & Chem 7: 11/13/24 14:43 11/13/24 14:43 Labs: Abnormal Lab Results - Last 24 Hours (Table) 11/13/24 11/13/24 11/13/24 Range/Units 14:43 14:43 18:09 RDW 16.8 H (11.5-15.5) % Potassium 3.2 L (3.5-5.1) mmol/L Creatinine 0.38 L (0.52-1.04) mg/dL Total Protein 5.7 L (6.3-8.2) g/dL Albumin 2.9 L (3.5-5.0) g/dL Urine Appearance Cloudy H (Clear) Ur Specific [place] 1.047 H (1.001-1.035) Urine Protein 1+ H (Negative) Urine Ketones 2+ H (Negative) Urine RBC 23 H (0-5) /hpf Urine WBC 11 H (0-5) /hpf Urine Mucus Many H (None) /hpf
[2024-11-14] MEDS: ONDANSETRON 4 MG/2 ML VIAL IVP PRN (03:36)
[2024-11-14] MEDS: HYDROcodone/APAP 5-325MG 1 EACH TAB PO PRN (03:36)
[2024-11-14] MEDS: FERROUS SULFATE 325 MG TAB PO SCH (08:58)
[2024-11-14] MEDS: LORazepam 1 MG TAB PO PRN (08:58)
[2024-11-14] MEDS: ENOXAPARIN 40 MG/0.4 ML SYRINGE SQ SCH (08:58)
[2024-11-14] MEDS: PANTOPRAZOLE 40 MG TABLET PO SCH (08:58)
[2024-11-14] MEDS: POTASSIUM CHLORIDE ER 20 MEQ TAB.ER PO SCH (08:59)
[2024-11-14] MEDS: NICOTINE 21MG/24HR PATCH TRANSDERM SCH (08:59)
[2024-11-14] MEDS: HYDROCORTISONE 20 MG TAB PO SCH (09:53)
[2024-11-14] MEDS: MORPHINE SULFATE 2 MG/ML SYRINGE IVP PRN (09:57)
[2024-11-14] MEDS: PROPRANOLOL 20 MG TAB PO SCH (09:59)
[2024-11-14] MEDS: TIOTROPIUM 2.5 MCG INHALER INHALATION SCH (12:03)
[2024-11-14] MEDS: SYMBICORT 160-4.5 MCG INHALER INHALATION SCH (12:03)
[2024-11-14] MEDS: ACETAMINOPHEN TAB 325 MG TAB PO PRN (12:25)
[2024-11-14 17:20] LABS: Glucose,Whole Blood 89 mg/dL (70-110)
--- NOTE | 2024-11-14 17:53 | P.PN ---
Subjective Progress Note Date: 11/14/24 Patient was seen and examined. Reports intractable abdominal pain. Requesting Dilaudid. Nausea but no vomiting. General: non toxic, no distress, appears at stated age Derm: warm, dry Head: atraumatic, normocephalic, symmetric Eyes: EOMI, no lid lag, anicteric sclera Mouth: no lip lesion, mucus membranes moist Cardiovascular: good distal perfusion in all 4 extremities Lungs: breathing comfortably, no accessory muscle use Ext: no gross muscle atrophy, no edema, no contractures Neuro: no focal neuro deficits Psych: Alert, oriented, appropriate affect Based on my assessment of this patient, this patient meets a high complexity level of care. Gastroparesis likely secondary to gastric bypass Hypokalemia likely due to vomiting Ketosis likely due to starvation GERD Chronic pain Anxiety TERESO Dilaudid 1 mg IV Q3H PRN, [place] 5 PO BID PRN. Repeat BMP and Mag in the AM. Awaiting transfer to [facility]. CODE STATUS: FULL CODE DVT Prophylaxis: Lovenox SQ GI Prophylaxis: Protonix 40 mg PO BID. Designated medical POA if patient is not able to make medical decisions for themselves: I have reviewed the following senior market intelligence consultant notes: I have reviewed the results of the following tests: I have ordered the following tests: I have discussed the care of this patient with the following independent historian: I have independently interpreted the following test below: I have discussed the management of this patient with the following physician: Objective - Vital Signs Vital signs: Vital Signs Temp 97.9 F 11/13/24 20:36 Pulse 104 H 11/14/24 17:14 Resp 18 11/14/24 17:14 BP 99/66 11/14/24 17:14 Pulse Ox 100 11/14/24 17:14 FiO2 Intake & Output 11/13/24 11/14/24 11/14/24 18:59 06:59 18:59 Output Total 0 Balance 0 Weight 63.049 kg Output: Emesis 0 - Labs CBC & Chem 7: 11/13/24 14:43 11/13/24 14:43 Labs: Abnormal Lab Results - Last 24 Hours (Table) 11/13/24 Range/Units 18:09 Urine Appearance Cloudy H (Clear) Ur Specific [place] 1.047 H (1.001-1.035) Urine Protein 1+ H (Negative) Urine Ketones 2+ H (Negative) Urine RBC 23 H (0-5) /hpf Urine WBC 11 H (0-5) /hpf Urine Mucus Many H (None) /hpf
[2024-11-14] MEDS: HYDROmorphone 1 MG/ML 1 ML SYRINGE IVP PRN (18:05)
[2024-11-14] MEDS: QUEtiapine 100 MG TAB PO SCH (21:36)
[2024-11-14] MEDS: traZODone HCL 100 MG TAB PO SCH (21:36)
[2024-11-15 06:11] LABS: Anisocytosis Slight; Basophils % (A) 0 %; Eosinophils % (A) 0 %; HCT 36.3 % (34.0-46.0); Hypochromasia Marked; Lymphocytes # (A) 1.7 k/uL (1.0-4.8); Lymphocytes % (A) 25 %; MCH 28.8 pg (25.0-35.0); MCHC 30.5 g/dL (31.0-37.0); MCV 94.5 fL (80.0-100.0); Mean Platelet Volume 8.9; Monocytes # (A) 0.2 k/uL (0-1.0); Monocytes % (A) 3 %; Neutrophils # (A) 4.8 k/uL (1.3-7.7); Neutrophils % (A) 70 %; Platelet Count 262 k/uL (150-450); RBC 3.84 m/uL (3.80-5.40); RDW 16.8 % (11.5-15.5); WBC 6.9 k/uL (3.8-10.6)
[2024-11-15 06:42] LABS: ALT 25 U/L (4-34); AST 33 U/L (14-36); African American GFR (CKD) >90 (>60 ml/min/1.73 sqM); Albumin 2.4 g/dL (3.5-5.0); Alkaline Phosphatase 59 U/L (38-126); Anion Gap 8 mmol/L; Blood Urea Nitrogen 7 mg/dL (7-17); Calcium 8.5 mg/dL (8.4-10.2); Carbon Dioxide 22 mmol/L (22-30); Chloride 106 mmol/L (98-107); Glucose 89 mg/dL (74-99); Non-African American GFR(CKD) >90 (>60 ml/min/1.73 sqM); Potassium 3.4 mmol/L (3.5-5.1); Sodium 136 mmol/L (137-145); Total Bilirubin 0.8 mg/dL (0.2-1.3)
--- NOTE | 2024-11-15 18:12 | P.PN ---
Subjective Progress Note Date: 11/15/24 Patient was seen and examined. Abdominal pain improved. No other complaints. CBC and BMP significant for Hg 11, Na 136, K 3.4, Cr 0.27, alb 2.4. General: non toxic, no distress, appears at stated age Derm: warm, dry Head: atraumatic, normocephalic, symmetric Eyes: EOMI, no lid lag, anicteric sclera Mouth: no lip lesion, mucus membranes moist Cardiovascular: good distal perfusion in all 4 extremities Lungs: breathing comfortably, no accessory muscle use Ext: no gross muscle atrophy, no edema, no contractures Neuro: no focal neuro deficits Psych: Alert, oriented, appropriate affect Based on my assessment of this patient, this patient meets a high complexity level of care. Gastroparesis likely secondary to gastric bypass Hypokalemia likely due to vomiting Ketosis likely due to starvation GERD Chronic pain Anxiety TERESO Dilaudid 1 mg IV Q3H PRN, [place] 5 PO BID PRN. KCl 20 meq PO x 1. Awaiting transfer to [facility]. CODE STATUS: FULL CODE DVT Prophylaxis: Lovenox SQ GI Prophylaxis: Protonix 40 mg PO BID. Designated medical POA if patient is not able to make medical decisions for themselves: I have reviewed the following solutions delivery consultant notes: I have reviewed the results of the following tests: I have ordered the following tests: I have discussed the care of this patient with the following independent historian: I have independently interpreted the following test below: I have discussed the management of this patient with the following physician: Objective - Vital Signs Vital signs: Vital Signs Temp 98.1 F 11/15/24 06:45 Pulse 76 11/15/24 14:41 Resp 18 11/15/24 14:41 BP 100/69 11/15/24 14:41 Pulse Ox 99 11/15/24 14:41 FiO2 - Labs CBC & Chem 7: 11/15/24 05:59 11/15/24 05:59 Labs: Abnormal Lab Results - Last 24 Hours (Table) 11/15/24 11/15/24 Range/Units 05:59 05:59 Hgb 11.0 L (11.4-16.0) gm/dL MCHC 30.5 L (31.0-37.0) g/dL RDW 16.8 H (11.5-15.5) % Sodium 136 L (137-145) mmol/L Potassium 3.4 L (3.5-5.1) mmol/L Creatinine 0.27 L (0.52-1.04) mg/dL Total Protein 5.0 L (6.3-8.2) g/dL Albumin 2.4 L (3.5-5.0) g/dL
[2024-11-15] MEDS: POTASSIUM CHLORIDE ER 20 MEQ TAB.ER PO STA (18:29)
--- NOTE | 2024-11-16 18:37 | P.PN ---
Subjective Progress Note Date: 11/16/24 Patient was seen and examined. Abdominal pain improved. No other complaints. No new labs. General: non toxic, no distress, appears at stated age Derm: warm, dry Head: atraumatic, normocephalic, symmetric Eyes: EOMI, no lid lag, anicteric sclera Mouth: no lip lesion, mucus membranes moist Cardiovascular: good distal perfusion in all 4 extremities Lungs: breathing comfortably, no accessory muscle use Ext: no gross muscle atrophy, no edema, no contractures Neuro: no focal neuro deficits Psych: Alert, oriented, appropriate affect Based on my assessment of this patient, this patient meets a high complexity level of care. Gastroparesis likely secondary to gastric bypass Hypokalemia likely due to vomiting Ketosis likely due to starvation GERD Chronic pain Anxiety TERESO Dilaudid 1 mg IV Q3H PRN, [place] 5 PO BID PRN. Awaiting transfer to [facility]. CODE STATUS: FULL CODE DVT Prophylaxis: Lovenox SQ GI Prophylaxis: Protonix 40 mg PO BID. Designated medical POA if patient is not able to make medical decisions for themselves: I have reviewed the following travel sales consultant notes: I have reviewed the results of the following tests: I have ordered the following tests: I have discussed the care of this patient with the following independent historian: I have independently interpreted the following test below: I have discussed the management of this patient with the following physician: Objective - Vital Signs Vital signs: Vital Signs Temp 98.1 F 11/15/24 06:45 Pulse 80 11/16/24 17:03 Resp 18 11/16/24 17:03 BP 132/92 11/16/24 17:03 Pulse Ox 99 11/16/24 17:03 FiO2 - Labs CBC & Chem 7: 11/15/24 05:59 11/15/24 05:59
[2024-11-17] MEDS: QUEtiapine 100 MG TAB PO SCH (21:11)
[2024-11-18 07:49] LABS: Anisocytosis Slight; HCT 31.8 % (34.0-46.0); HGB 9.9 gm/dL (11.4-16.0); Hypochromasia Moderate; MCH 28.6 pg (25.0-35.0); MCHC 31.1 g/dL (31.0-37.0); MCV 92.2 fL (80.0-100.0); Mean Platelet Volume 9.7; Platelet Count 195 k/uL (150-450); RBC 3.45 m/uL (3.80-5.40); WBC 8.1 k/uL (3.8-10.6)
[2024-11-18 08:06] LABS: African American GFR (CKD) >90 (>60 ml/min/1.73 sqM); Anion Gap 4 mmol/L; Blood Urea Nitrogen 7 mg/dL (7-17); Calcium 7.9 mg/dL (8.4-10.2); Carbon Dioxide 27 mmol/L (22-30); Chloride 106 mmol/L (98-107); Glucose 79 mg/dL (74-99); Magnesium 1.5 mg/dL (1.6-2.3); Non-African American GFR(CKD) >90 (>60 ml/min/1.73 sqM); Potassium 3.2 mmol/L (3.5-5.1); Sodium 137 mmol/L (137-145)
[2024-11-18] MEDS: POTASSIUM CHLORIDE ER 20 MEQ TAB.ER PO STA (12:22)
[2024-11-18] MEDS: MAGNESIUM SULFATE-D5W PMX 1 GM in DEXTROSE/WATER 1 100ML.BAG IVPB SCH (12:53)
--- NOTE | 2024-11-18 14:15 | P.PN ---
Subjective Progress Note Date: 11/18/24 Patient was seen and examined. Sleeping comfortably. No concerns from nursing. CBC and BMP significant for RBC 3.45, Hg 9.9, Hct 31.8, K 3.2, Cr 0.32, Ca 7.9. Mag 1.5. General: non toxic, no distress, appears at stated age Derm: warm, dry Head: atraumatic, normocephalic, symmetric Mouth: no lip lesion, mucus membranes moist Cardiovascular: good distal perfusion in all 4 extremities Lungs: breathing comfortably, no accessory muscle use Ext: no gross muscle atrophy, no edema, no contractures Neuro: no focal neuro deficits Psych: Alert, oriented, appropriate affect Based on my assessment of this patient, this patient meets a high complexity level of care. Gastroparesis likely secondary to gastric bypass Hypokalemia and hypomagnesemia likely due to vomiting Ketosis likely due to starvation GERD Chronic pain Anxiety TERESO KCl 40 meq IV x 1. Mag suflate 2g IV x 1. Dilaudid 1 mg IV Q3H to Q6H PRN, [place] 5 PO BID PRN. Drop in Hg is dilutional, monitor for bleeding. Awaiting transfer to [facility]. CODE STATUS: FULL CODE DVT Prophylaxis: Lovenox SQ GI Prophylaxis: Protonix 40 mg PO BID. Designated medical POA if patient is not able to make medical decisions for themselves: I have reviewed the following senior staff consultant notes: I have reviewed the results of the following tests: CBC, BMP, Mag. I have ordered the following tests: I have discussed the care of this patient with the following independent historian: SHANIA. I have independently interpreted the following test below: I have discussed the management of this patient with the following physician: Objective - Vital Signs Vital signs: Vital Signs Temp 98.0 F 11/18/24 09:47 Pulse 84 11/18/24 09:47 Resp 18 11/18/24 09:47 BP 149/99 11/18/24 09:47 Pulse Ox 100 11/18/24 09:47 FiO2 Intake & Output 11/17/24 11/18/24 11/18/24 17:59 06:59 18:59 Other: Voiding Method - Labs CBC & Chem 7: 11/18/24 07:30 11/18/24 07:30 Labs: Abnormal Lab Results - Last 24 Hours (Table) 11/18/24 11/18/24 Range/Units 07:30 07:30 RBC 3.45 L (3.80-5.40) m/uL Hgb 9.9 L (11.4-16.0) gm/dL Hct 31.8 L (34.0-46.0) % RDW 17.0 H (11.5-15.5) % Potassium 3.2 L (3.5-5.1) mmol/L Creatinine 0.32 L (0.52-1.04) mg/dL Calcium 7.9 L (8.4-10.2) mg/dL Magnesium 1.5 L (1.6-2.3) mg/dL
[2024-11-18] MEDS: HYDROmorphone 1 MG/ML 1 ML SYRINGE IVP PRN (16:09)
--- NOTE | 2024-11-19 06:51 | P.PN ---
Subjective Progress Note Date: 11/19/24 Patient was seen and examined. Appears comfortable. Reports 9/10 abdominal pain, states Dilaudid Q6 not helping as much as Q3. Requesting GI soft diet. No new labs done today. General: non toxic, no distress, appears at stated age Derm: warm, dry Head: atraumatic, normocephalic, symmetric Mouth: no lip lesion, mucus membranes moist Cardiovascular: good distal perfusion in all 4 extremities Lungs: breathing comfortably, no accessory muscle use Ext: no gross muscle atrophy, no edema, no contractures Neuro: no focal neuro deficits Psych: Alert, oriented, appropriate affect Based on my assessment of this patient, this patient meets a high complexity level of care. Gastroparesis likely secondary to gastric bypass Hypokalemia and hypomagnesemia likely due to vomiting Ketosis likely due to starvation GERD Chronic pain Anxiety TERESO Repeat CBC and BMP with Mag in the AM. Dilaudid 1 mg IV Q6H PRN, [place] 5 PO BID PRN. Drop in Hg is dilutional, monitor for bleeding. Protonix 40 mg PO BID. GI soft diet. Awaiting transfer to [facility]. CODE STATUS: FULL CODE DVT Prophylaxis: Lovenox SQ GI Prophylaxis: Protonix 40 mg PO BID. Designated medical POA if patient is not able to make medical decisions for the mselves: I have reviewed the following cosmetic sales consultant notes: I have reviewed the results of the following tests: I have ordered the following tests: CBC, BMP, Mag in the AM. I have discussed the care of this patient with the following independent historian: I have independently interpreted the following test below: I have discussed the management of this patient with the following physician: Objective - Vital Signs Vital signs: Vital Signs Temp 98.5 F 11/18/24 18:45 Pulse 90 11/19/24 06:12 Resp 18 11/19/24 06:12 BP 134/90 11/19/24 06:12 Pulse Ox 100 11/19/24 06:12 FiO2 Intake & Output 11/18/24 11/18/24 11/19/24 06:59 18:59 06:59 Other: Voiding Method - Labs CBC & Chem 7: 11/18/24 07:30 11/18/24 07:30 Labs: Abnormal Lab Results - Last 24 Hours (Table) 11/18/24 11/18/24 Range/Units 07:30 07:30 RBC 3.45 L (3.80-5.40) m/uL Hgb 9.9 L (11.4-16.0) gm/dL Hct 31.8 L (34.0-46.0) % RDW 17.0 H (11.5-15.5) % Potassium 3.2 L (3.5-5.1) mmol/L Creatinine 0.32 L (0.52-1.04) mg/dL Calcium 7.9 L (8.4-10.2) mg/dL Magnesium 1.5 L (1.6-2.3) mg/dL
[2024-11-20 06:22] LABS: Anisocytosis Slight; HCT 34.7 % (34.0-46.0); HGB 10.5 gm/dL (11.4-16.0); Hypochromasia Slight; MCH 27.6 pg (25.0-35.0); MCHC 30.1 g/dL (31.0-37.0); MCV 91.7 fL (80.0-100.0); Mean Platelet Volume 9.8; Platelet Count 198 k/uL (150-450); RBC 3.79 m/uL (3.80-5.40); WBC 7.6 k/uL (3.8-10.6)
[2024-11-20 06:53] LABS: African American GFR (CKD) >90 (>60 ml/min/1.73 sqM); Anion Gap 4 mmol/L; Blood Urea Nitrogen 9 mg/dL (7-17); Calcium 8.4 mg/dL (8.4-10.2); Carbon Dioxide 29 mmol/L (22-30); Chloride 104 mmol/L (98-107); Glucose 82 mg/dL (74-99); Magnesium 1.8 mg/dL (1.6-2.3); Non-African American GFR(CKD) >90 (>60 ml/min/1.73 sqM); Potassium 3.6 mmol/L (3.5-5.1); Sodium 137 mmol/L (137-145)
--- NOTE | 2024-11-20 11:46 | P.PN ---
Subjective Progress Note Date: 11/20/24 Hospital Course: 34-year-old female with past medical history of hypertension, tachycardia, sle jeannie gastrectomy converted to Rocephin while gastric bypass on 05/25/2024, who presented with intractable nausea and vomiting, epigastric pain. Hospitalist service consulted for medical management while awaiting transfer to [facility]. Patient was seen and examined 9, she was sleeping, overall. Comfortable, reported, 10 abdominal pain and stated that Dilaudid every 6 hours not helping. She also noted bilateral lateral leg numbness started days ago, denied acute lower back pain Pertinent positives and negatives as discussed above, a complete review of systems was performed and all other systems are negative. Vitals Signs Reviewed. General: [nontoxic], [no distress], [appears at stated age] Derm: [warm], [dry] Head: [atraumatic], [normocephalic], [symmetric] Eyes: [EOMI], [no lid lag], [anicteric sclera] Mouth: [no lip lesion], [mucus membranes moist] Cardiovascular: [S1S2 reg], [no murmur] Lungs: [CTA bilateral], [no rhonchi, no rales] , [no accessory muscle use] Abdominal: [soft], [ nontender to palpation], [no guarding], [no appreciable organomegaly] Ext: [no gross muscle atrophy], [no edema], [no contractures] Neuro: [ CN II-XI grossly intact], [no focal neuro deficits] Psych: [Alert], [oriented], [appropriate affect] Data Reviewed Today: Pertinent Labs: Hemoglobin stable at 10.5, MCV 91.7, sodium and potassium normal, kidney function normal, bicarb 29 Assessment and Plan: Gastroparesis likely secondary to gastric bypass Hypokalemia and hypomagnesemia likely due to vomiting Ketosis likely due to starvation, resolved GERD Chronic pain Anxiety TERESO Dilaudid 1 mg IV Q6H PRN, [place] 5 PO BID PRN. Drop in Hg is dilutional, monitor for bleeding. Protonix 40 mg PO BID. GI soft diet. Awaiting transfer to [facility]. Bilateral lower extremity numbness: Ordered folate and B12 CODE STATUS: FULL CODE DVT Prophylaxis: Lovenox SQ GI Prophylaxis: Protonix 40 mg PO BID. Objective - Vital Signs Vital signs: Vital Signs Temp 98.1 F 11/20/24 06:00 Pulse 79 11/20/24 09:53 Resp 16 11/20/24 09:53 BP 143/92 11/20/24 09:53 Pulse Ox 97 11/20/24 09:53 FiO2 - Labs CBC & Chem 7: 11/20/24 06:15 11/20/24 06:15 Labs: Abnormal Lab Results - Last 24 Hours (Table) 11/20/24 11/20/24 Range/Units 06:15 06:15 RBC 3.79 L (3.80-5.40) m/uL Hgb 10.5 L (11.4-16.0) gm/dL MCHC 30.1 L (31.0-37.0) g/dL RDW 17.0 H (11.5-15.5) % Creatinine 0.33 L (0.52-1.04) mg/dL
[2024-11-21 08:15] VITALS: RESP 12
[2024-11-21] MEDS: FOLIC ACID 1 MG TAB PO SCH (09:13)
[2024-11-21] MEDS: GABAPENTIN 100 MG CAP PO SCH (09:13)
[2024-11-21] MEDS: THIAMINE 100 MG TAB PO SCH (09:13)
[2024-11-21] MEDS: SODIUM CHLORIDE 0.9% 1,000 ML IV ONE (15:24)
[2024-11-21 17:26] VITALS: BP 138/89; PULSE 91; TEMP 99.1
== END 2024-11-21 17:30 | disposition short-term general hospital (02) ==
LOC: EC 14:19
DX: K31.84 Gastroparesis (principal); E87.6 Hypokalemia; R00.0 Tachycardia, unspecified; K21.9 Gastro-esophageal reflux disease without esophagitis; G89.29 Other chronic pain; F41.9 Anxiety disorder, unspecified; Z79.899 Other long term (current) drug therapy; Z98.84 Bariatric surgery status; Z91.040 Latex allergy status; Z88.5 Allergy status to narcotic agent; Z87.891 Personal history of nicotine dependence
CPT/HCPCS: 99285 ×2; 96375 ×6; 96376 ×55; 96361 ×2; 96372 ×14; 96365 ×2; 96366 ×3; 36415 ×2; 94640 ×2; 80053; 82150; 83690; 85025; 81001; S4990 ×8; J2270 ×2; J2765; J2405 ×7; J1650 ×7; J1171 ×10; J3475

== ENCOUNTER 2024-11-21 11:01 | Inpatient (IN) | payer OTHER ==
--- NOTE | 2024-11-21 13:53 | P.PN ---
Subjective Progress Note Date: 11/21/24 Hospital Course: 34-year-old female with past medical history of hypertension, tachycardia, sle jeannie gastrectomy converted to Rocephin while gastric bypass on 05/25/2024, who presented with intractable nausea and vomiting, epigastric pain. Hospitalist service consulted for medical management while awaiting transfer to [facility]. Patient was seen and examined bedside in the ED, patient states that she still is experiencing abdominal pain, with normal 10 out of 10, states the Dilaudid brings family but wears off quickly, and again requested to be more frequent, we discussed that so far she did not have any improvement with Dilaudid and is a less likely to be helpful, and she needs a long-term solution for her pain. She agreed, pain medicine consulted. Continued on [place] for now Patient has been waiting for [facility] transfer since 11/13/2024, she is low priority for transfer, unlikely to happen in the next several days. Patient agreed to be admitted seen by surgical team for possible EGD and dilation. She mentioned that she now has more troubles with swallowing food as she had in the past, she previously had dilations. Also was transferred to [facility] during her previous admission where she had dilation. She mentioned that she gets bilateral lower extremity pain and numbness, extensively reviewed chart, she was previously seen and evaluated by neurology for that, symptoms attributed to vitamin deficiency, she was on folic acid and thiamine at that time. I checked her vitamin B12 and it came back elevated, folate was 515, despite that I continued her on folic acid 1 mg a day, also thiamine 100 daily. Patient is now admitted and will be under care of another attending physician. Pertinent positives and negatives as discussed above, a complete review of systems was performed and all other systems are negative. Vitals Signs Reviewed. General: [nontoxic], [no distress], [appears at stated age] Derm: [warm], [dry] Head: [atraumatic], [normocephalic], [symmetric] Eyes: [EOMI], [no lid lag], [anicteric sclera] Mouth: [no lip lesion], [mucus membranes moist] Cardiovascular: [S1S2 reg], [no murmur] Lungs: [CTA bilateral], [no rhonchi, no rales] , [no accessory muscle use] Abdominal: [soft], [ nontender to palpation], [no guarding], [no appreciable organomegaly] Ext: [no gross muscle atrophy], [no edema], [no contractures] Neuro: [ CN II-XI grossly intact], [no focal neuro deficits] Psych: [Alert], [oriented], [appropriate affect] Data Reviewed Today: Pertinent Labs: no new blood work today Assessment and Plan: Gastroparesis likely secondary to gastric bypass Hypokalemia and hypomagnesemia likely due to vomiting Ketosis likely due to starvation, resolved GERD Chronic pain Anxiety TERESO Dilaudid 1 mg IV Q6H PRN -discontinued, [place] 5 PO BID PRN. Pain medicine consulted Drop in Hg is dilutional, monitor for bleeding. Protonix 40 mg PO BID. GI soft diet. Gen surgery consulted for possible EGD Bilateral lower extremity numbness: Continue folate and thiamine daily, started on gabapentin 100 3 times daily, was previously on it as was recommended by neurology CODE STATUS: FULL CODE DVT Prophylaxis: Lovenox SQ GI Prophylaxis: Protonix 40 mg PO BID.
[2024-11-21] MEDS: HYDROcodone/APAP 5-325MG 1 EACH TAB PO PRN (18:12)
[2024-11-21] MEDS: SODIUM CHLORIDE 0.9% 1,000 ML IV SCH (18:14)
--- NOTE | 2024-11-21 21:26 | PN ---
PROGRESS NOTE SUBJECTIVE: A 34-year-old female with hypertension, tachycardia, severe amount of weight loss, malnutrition, status post sleeve gastrectomy, converted to a gastric bypass, retractable nausea and vomiting. She has lost so much weight in the last 6 months. She is admitted after spending 8 days in the ER without being able to be transferred. Hopefully, Dr. Liu can see her and possibly refer to surgery that was done for which she can eat and get her nutrition up versus PEG tube feeding. She is thin, cachectic, dehydrated. OBJECTIVE: VITAL SIGNS: Stable. CARDIOVASCULAR: S1, S2. LUNGS: Transmitted airway upper sounds. INTEGUMENT: Dry skin turgor. NEUROLOGIC: Alert and oriented x3. ASSESSMENT: 1. Gastroparesis. 2. Hypokalemia. 3. Hypomagnesemia. 4. Ketosis. 5. Starvation. 6. Chronic pain. 7. Anxiety. 8. Right lower extremity numbness. Continue with folate, thiamine, gabapentin, iron supplementation for anemia. Consult Surgery. Possibly, we will need to do nutrition to the IV or possibly reverse prior surgery per Dr. Liu. Please see further orders. MMODL / IJN: [id number] /
[2024-11-21] MEDS: ONDANSETRON ODT 4 MG TAB PO PRN (21:29)
[2024-11-21] MEDS: HYDROCORTISONE 20 MG TAB PO SCH (21:29)
[2024-11-21] MEDS: QUEtiapine 100 MG TAB PO SCH (21:29)
[2024-11-21] MEDS: traZODone HCL 100 MG TAB PO SCH (21:29)
[2024-11-21] MEDS: PROPRANOLOL 20 MG TAB PO SCH (21:29)
[2024-11-21] MEDS: PANTOPRAZOLE 40 MG TABLET PO SCH (21:29)
[2024-11-22] MEDS: LORazepam 1 MG TAB PO PRN (00:16)
[2024-11-22] MEDS: FERROUS SULFATE 325 MG TAB PO SCH (08:03)
[2024-11-22] MEDS: NICOTINE 21MG/24HR PATCH TRANSDERM SCH (08:03)
[2024-11-22 10:19] LABS: Basophils # (A) 0.02 X 10*3/uL (0.00-0.10); Basophils % (A) 0.3 %; Eosinophils # (A) 0.01 X 10*3/uL (0.04-0.35); Eosinophils % (A) 0.1 %; HCT 31.6 % (37.2-46.3); HGB 10.5 g/dL (12.0-15.0); Lymphocytes # (A) 2.33 X 10*3/uL (0.90-5.00); Lymphocytes % (A) 30.1 %; MCHC 33.2 g/dL (32.0-37.0); MCV 87.3 FL (80.0-97.0); Mean Platelet Volume 13.5 FL (9.5-12.2); Monocytes # (A) 0.58 X 10*3/uL (0.20-1.00); Monocytes % (A) 7.5 %; NRBC Per 100 WBC 0 X 10*3/uL (0.00-0.01); Neutrophils # (A) 4.77 X 10*3/uL (1.80-7.70); Neutrophils % (A) 61.7 %; Platelet Count 192 X 10*3/uL (140-440); RBC 3.62 X 10*6/uL (4.10-5.20); RDW 18.6 % (11.5-14.5); WBC 7.73 X 10*3/uL (4.50-10.00)
[2024-11-22 10:26] LABS: ALT 27 U/L (8-44); AST 24 U/L (13-35); Albumin 2.4 g/dL (3.8-4.9); Albumin/Globulin Ratio 1.14 Ratio (1.60-3.17); Alkaline Phosphatase 45 U/L (41-126); BUN/Creat Ratio 15.25 Ratio (12.00-20.00); Blood Urea Nitrogen 6.1 mg/dL (9.0-27.0); Calcium 8.3 mg/dL (8.7-10.3); Carbon Dioxide 25.2 mmol/L (21.6-31.8); Chloride 104 mmol/L (96-109); Globulin 2.1 g/dL (1.6-3.3); Glucose 78 mg/dL (70-110); Potassium 3.5 mmol/L (3.5-5.5); Sodium 141 mmol/L (135-145); Total Bilirubin 0.3 mg/dL (0.3-1.2); Total Protein 4.5 g/dL (6.2-8.2)
--- NOTE | 2024-11-22 14:07 | P.GSCN ---
History of Present Illness Consult date: 11/22/24 History of present illness: CHIEF COMPLAINT: Recurrent nausea and vomiting HISTORY OF PRESENT ILLNESS: This is a 34-year-old female with a known history of sleeve gastrectomy on 12/20/2023 and then required a conversion to Glenn-en-Y gastric bypass on 06/11/2024 at [facility]. Patient has had multiple admissions and ER visits regarding this recurrent nausea and vomiting. She has been noncompliant with her follow-up at [facility]. Patient has had me dical complication with PE and multiple admissions with failure to thrive. She does have a known bipolar disorder. Patient had hospitalization in October 2023 and at that time there was a long wait to be transferred to [facility]. Per patient she was discharged home and never did follow-up with [facility]. Patient seen and examined with Dr. Liu PAST MEDICAL HISTORY: GERD/Reflux, Pulmonary Embolus (PE), Sleep Apnea/CPAP/BIPAP PAST SURGICAL HISTORY: Bariatric Surgery, Section, Cholecystectomy, Tubal Ligation, Uterine Ablation, sleeve gastrectomy 12-20-23. gastric bypass 06/11/24 MEDICATIONS: See below ALLERGIES: See below SOCIAL HISTORY: No illicit drug use. REVIEW OF SYSTEMS: CONSTITUTIONAL: Denies fever or chills. HEENT: Denies blurred vision, vision changes, or eye pain. Denies hemoptysis CARDIOVASCULAR: Denies chest pain or pressure. RESPIRATORY: No shortness of breath. GASTROINTESTINAL: See HPI for pertinent findings HEMATOLOGIC: Denies bleeding disorders. GENITOURINARY: Denies any blood in urine or increased urinary frequency. SKIN: Denies pruitis. Denies rash. PHYSICAL EXAM: VITAL SIGNS: Reviewed GENERAL: Well-developed in no acute distress. HEENT: No sclera icterus. Extraocular movements grossly intact. Moist buccal mucosa. Head is atraumatic, normocephalic. No nasal drainage. ABDOMEN: Soft. Nondistended. Tenderness epigastric area. No rebound or guarding. NEUROLOGIC: Alert and oriented. Cranial nerves II through XII grossly intact. LABORATORY DATA: WBC 7.73 Hgb 10.5 platelets 192 Sodium 141 potassium 3.5 creatinine 0.4 Albumin is 2.4 IMAGING: ASSESSMENT: 1. Recurrent nausea and vomiting 2. Severe protein calorie malnutrition 3. History of gastric sleeve requiring conversion to Glenn-en-Y gastric bypass 4. Multiple hospital admissions with failure to thrive 5. Patient has been noncompliant with follow-ups at [facility] 6. Bipolar disorder PLAN: -Recommend transfer to [facility] -Consult psychiatry, patient may need adjustment to psychiatric meds due to absorption issues after of Glenn-en-Y gastric bypass -Downgrade diet to full liquids -Continue IV fluids -Check a thiamine and magnesium level -No surgical intervention planned Physician Email Production Specialist note has been reviewed by physician. Signing provider agrees with the documented findings, assessment, and plan of care. Past Medical History Past Medical History: GERD/Reflux, Pulmonary Embolus (PE), Sleep Apnea/CPAP/BIPAP Additional Past Medical History / Comment(s): iron defiency anemia, pulmonary embolism 02/13/24 History of Any Multi-Drug Resistant Organisms: None Reported Past Surgical History: Bariatric Surgery, Section, Cholecystectomy, Tubal Ligation, Uterine Ablation Additional Past Surgical History / Comment(s): 2008 AND 2015 (c/s) and 2010 (cholecyst). 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 gastric bypass 06/11/24 Past Anesthesia/Blood Transfusion Reactions: No Reported Reaction Past Psychological History: Anxiety, Bipolar, Depression Additional Psychological History / Comment(s): Pt on oral medications Smoking Status: Former smoker Past Alcohol Use History: None Reported Additional Past Alcohol Use History / Comment(s): Pt smokes a couple cigarrettes a day Past Drug Use History: None Reported - Past Family History Mother Family Medical History: Asthma, COPD, Diabetes Mellitus, Hypertension Additional Family Medical History / Comment(s): depression, anxiety, sleep apnea, Father Family Medical History: Hypertension Additional Family Medical History / Comment(s): arthritis Medications and Allergies Home Medications Medication Instructions Recorded Confirmed Type Budesonide/Formoterol Fumarate 2 puff INHALATION RT-BID 07/12/24 11/21/24 History [Symbicort 160-4.5 Mcg Inhaler] LORazepam [Ativan] 1 mg PO BID PRN 07/12/24 11/21/24 History QUEtiapine [SEROquel] 100 mg PO HS 07/12/24 11/21/24 History Tiotropium 2.5 Mcg/Puff [Spiriva 2 puff INHALATION RT-DAILY 07/12/24 11/21/24 History Respimat 2.5 Mcg] traZODone HCL [Desyrel] 100 mg PO HS 07/12/24 11/21/24 History Ondansetron [Zofran] 4 mg PO BID PRN 07/26/24 11/21/24 History Nicotine 21Mg/24Hr Patch [Habitrol] 1 patch TRANSDERM DAILY 09/07/24 11/21/24 History oxyCODONE HCL [OxyIR] 5 mg PO Q12H PRN 09/07/24 11/21/24 History Pantoprazole Sodium [Protonix] 40 mg PO BID #60 tab 09/20/24 11/21/24 Rx Hydrocortisone [Cortef] 20 mg PO BID 30 Days #60 tab 09/21/24 11/21/24 Rx Ferrous Sulfate [Iron (65 MG 325 mg PO DAILY 10/18/24 11/21/24 History Elemental)] Propranolol [Inderal] 20 mg PO BID 10/18/24 11/21/24 History HYDROcodone/APAP 5-325MG [[place] 1 tab PO BID PRN 11/13/24 11/21/24 History 5-325] Potassium Chloride ER [K-Dur 20] 20 meq PO Q2D 11/13/24 11/21/24 History Allergies Allergy/AdvReac Type Severity Reaction Status Date / Time latex Allergy Rash/Hives Verified 11/21/24 18:30 morphine AdvReac Itching Verified 11/21/24 18:30 Surgical - Exam Vital Signs Temp Pulse Resp BP Pulse Ox 99.2 F 95 20 129/87 99 11/21/24 20:00 11/21/24 20:00 11/21/24 20:00 11/21/24 20:00 11/21/24 20:00 Results - Labs 11/22/24 07:34 11/22/24 07:34 Abnormal Lab Results - Last 24 Hours (Table) 11/21/24 11/22/24 11/22/24 Range/Units 18:05 07:34 07:34 RBC 3.62 L (4.10-5.20) X 10*6/uL Hgb 10.5 L (12.0-15.0) g/dL Hct 31.6 L (37.2-46.3) % RDW 18.6 H (11.5-14.5) % MPV 13.5 H (9.5-12.2) FL Eosinophils # 0.01 L (0.04-0.35) X 10*3/uL BUN 6.1 L (9.0-27.0) mg/dL Creatinine 0.4 L (0.6-1.5) mg/dL Calcium 8.3 L (8.7-10.3) mg/dL Total Protein 4.5 L (6.2-8.2) g/dL Albumin 2.7 L 2.4 L (3.8-4.9) g/dL Albumin/Globulin Ratio 1.14 L (1.60-3.17) Ratio Diabetes panel 11/21/24 11/22/24 Range/Units 18:05 07:34 Sodium 141 (135-145) mmol/L Potassium 3.5 (3.5-5.5) mmol/L Chloride 104 (96-109) mmol/L Carbon Dioxide 25.2 (21.6-31.8) mmol/L BUN 6.1 L (9.0-27.0) mg/dL Creatinine 0.4 L (0.6-1.5) mg/dL Glucose 78 (70-110) mg/dL Calcium 8.3 L (8.7-10.3) mg/dL AST 24 (13-35) U/L ALT 27 (8-44) U/L Alkaline Phosphatase 45 (41-126) U/L Total Protein 4.5 L (6.2-8.2) g/dL Albumin 2.7 L 2.4 L (3.8-4.9) g/dL Calcium panel 11/21/24 11/22/24 Range/Units 18:05 07:34 Calcium 8.3 L (8.7-10.3) mg/dL Albumin 2.7 L 2.4 L (3.8-4.9) g/dL Pituitary panel 11/22/24 Range/Units 07:34 Sodium 141 (135-145) mmol/L Potassium 3.5 (3.5-5.5) mmol/L Chloride 104 (96-109) mmol/L Carbon Dioxide 25.2 (21.6-31.8) mmol/L BUN 6.1 L (9.0-27.0) mg/dL Creatinine 0.4 L (0.6-1.5) mg/dL Glucose 78 (70-110) mg/dL Calcium 8.3 L (8.7-10.3) mg/dL Adrenal panel 11/21/24 11/22/24 Range/Units 18:05 07:34 Sodium 141 (135-145) mmol/L Potassium 3.5 (3.5-5.5) mmol/L Chloride 104 (96-109) mmol/L Carbon Dioxide 25.2 (21.6-31.8) mmol/L BUN 6.1 L (9.0-27.0) mg/dL Creatinine 0.4 L (0.6-1.5) mg/dL Glucose 78 (70-110) mg/dL Calcium 8.3 L (8.7-10.3) mg/dL Total Bilirubin 0.3 (0.3-1.2) mg/dL AST 24 (13-35) U/L ALT 27 (8-44) U/L Alkaline Phosphatase 45 (41-126) U/L Total Protein 4.5 L (6.2-8.2) g/dL Albumin 2.7 L 2.4 L (3.8-4.9) g/dL
[2024-11-22 16:24] VITALS: BMI 25.4
--- NOTE | 2024-11-22 21:54 | HP ---
HISTORY AND PHYSICAL HISTORY OF PRESENT ILLNESS: A 34-year-old female, who came to the hospital. She has loss so much weight in the last 6 months at least over 100 pounds, waiting for Surgery to fix her. She had a gastric sleeve. She had 2 gastric surgeries, a Glenn-en-Y after a sleeve gastrectomy. She has failure to thrive, nausea, vomiting, unable to quit vomiting. She then followed up at [facility]. She has been in the ER for 8 days before we admitted her with continued wait for transfer. Discussed with the transfer team at [facility] today to take her. PAST MEDICAL HISTORY: GERD, pulmonary embolism, sleep apnea. She has a history of bipolar depression. SURGICAL HISTORY: Bariatric surgery, , cholecystectomy, tubal ligation, uterine ablation, sleeve gastrectomy, gastric bypass, status post first gastric sleeve surgery. MEDICATIONS: As mentioned above. ALLERGIES: Mentioned above. SOCIAL HISTORY: Does not smoke or do drugs. REVIEW OF SYSTEMS: 14-point review of systems, she has chronic shortness of breath as well as difficulty with nausea, vomiting, and weakness. She is unable to keep clear liquids down, maybe a little bit of soft foods. PHYSICAL EXAMINATION: GENERAL: She looks thin, cachectic, dry skin. VITAL SIGNS: Reviewed. NEUROLOGIC: Cranial nerves intact. ABDOMEN: Soft, nondistended, and nontender. No guarding. HEENT: Normocephalic. Pupils are equally, round, and reactive. PSYCHIATRIC: Flat mood and affect. NEUROLOGIC: Alert and oriented x3. LABORATORY DATA: White count 7.73, hemoglobin 10.5, platelets 192. Sodium 141, potassium 3.5, creatinine 0.4, albumin 2.4. ASSESSMENT AND PLAN: Recurrent nausea and vomiting, severe protein-calorie malnutrition. History of gastric sleeve, requiring Glenn-en-Y gastric bypass. Multiple admissions for failure to thrive, noncompliant, PLAN: We will follow up with [facility] for bipolar. Surgery recommends transfer to [facility]. Discussed with the transfer team. They have recommended psych consult per Dr. Liu. Clear liquids, IV fluids, thiamine, and magnesium. Wait for transfer to [facility]. Prognosis is guarded. MMODL / IJN: [id number] /
[2024-11-23] MEDS: HYDROmorphone 0.5 MG/0.5 ML SYRINGE IVP PRN (02:30)
[2024-11-23] MEDS: MAGNESIUM SULFATE-D5W PMX 1 GM in DEXTROSE/WATER 1 100ML.BAG IVPB ONE (08:09)
[2024-11-23 10:51] LABS: Basophils # (A) 0.02 X 10*3/uL (0.00-0.10); Basophils % (A) 0.3 %; Eosinophils # (A) 0.02 X 10*3/uL (0.04-0.35); Eosinophils % (A) 0.3 %; HCT 28.7 % (37.2-46.3); HGB 9.5 g/dL (12.0-15.0); Lymphocytes # (A) 2.86 X 10*3/uL (0.90-5.00); Lymphocytes % (A) 37.1 %; MCHC 33.1 g/dL (32.0-37.0); MCV 87.5 FL (80.0-97.0); Mean Platelet Volume 13.8 FL (9.5-12.2); Monocytes # (A) 0.61 X 10*3/uL (0.20-1.00); Monocytes % (A) 7.9 %; NRBC Per 100 WBC 0 X 10*3/uL (0.00-0.01); Neutrophils # (A) 4.16 X 10*3/uL (1.80-7.70); Platelet Count 189 X 10*3/uL (140-440); RBC 3.28 X 10*6/uL (4.10-5.20); RDW 18.8 % (11.5-14.5)
[2024-11-23 10:58] LABS: ALT 20 U/L (8-44); AST 12 U/L (13-35); Albumin 2.3 g/dL (3.8-4.9); Albumin/Globulin Ratio 1.28 Ratio (1.60-3.17); Alkaline Phosphatase 38 U/L (41-126); BUN/Creat Ratio 16.33 Ratio (12.00-20.00); Blood Urea Nitrogen 4.9 mg/dL (9.0-27.0); Calcium 8.1 mg/dL (8.7-10.3); Carbon Dioxide 27.1 mmol/L (21.6-31.8); Chloride 105 mmol/L (96-109); Globulin 1.8 g/dL (1.6-3.3); Glucose 83 mg/dL (70-110); Potassium 3.3 mmol/L (3.5-5.5); Sodium 141 mmol/L (135-145); Total Bilirubin 0.2 mg/dL (0.3-1.2); Total Protein 4.1 g/dL (6.2-8.2)
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
--- NOTE | 2024-11-23 13:39 | P.PN ---
Subjective Progress Note Date: 11/23/24 SURGICAL PROGRESS NOTE CHIEF COMPLAINT: Recurrent nausea and vomiting HISTORY OF PRESENT ILLNESS: Patient reports recurrent nausea. She is lying in bed. They are working on transferring patient to [facility]. Afebrile. WBC 7.70 Hgb 9.5 potassium is 3.3 magnesium 1.6. Thiamine level pending Patient seen and examined with Dr. Liu PHYSICAL EXAM: VITAL SIGNS: Reviewed. GENERAL: Well-developed in no acute distress. ABDOMEN: Soft. Nondistended. NEUROLOGIC: Alert and oriented. Cranial nerves II through XII grossly intact. ASSESSMENT: 1. Recurrent nausea and vomiting 2. Severe protein calorie malnutrition 3. History of gastric sleeve requiring conversion to Glenn-en-Y gastric bypass 4. Multiple hospital admissions with failure to thrive 5. Patient has been noncompliant with follow-ups at [facility] 6. Bipolar disorder PLAN: -Recommend transfer to [facility] -No surgical intervention planned -Continue with full liquid diet -Psychiatry adjusting psychiatric meds. Possible absorption issues of these medications due to prior Glenn-en-Y gastric bypass -Replace magnesium -Replace potassium Physician Hat Checker note has been reviewed by physician. Signing provider agrees with the documented findings, assessment, and plan of care. Objective - Vital Signs Vital signs: Vital Signs Temp 98.5 F 11/23/24 07:49 Pulse 84 11/23/24 07:49 Resp 18 11/23/24 11:12 BP 134/87 11/23/24 07:49 Pulse Ox 97 11/23/24 07:49 FiO2 Intake & Output 11/22/24 11/23/24 11/23/24 18:59 06:59 18:59 Intake Total 600 1650 1650 Balance 600 1650 1650 Weight 63 kg Intake: Intake, IV Titration 600 Amount Sodium Chloride 0.9% 1, 600 000 ml @ 50 mls/hr IV . Q20H ELPIDIO Rx#:[id number] Oral 1650 1650 Other: Voiding Method Toilet Toilet Toilet # Voids 7 2 - Labs CBC & Chem 7: 11/23/24 06:23 11/23/24 06:23 Labs: Abnormal Lab Results - Last 24 Hours (Table) 11/23/24 11/23/24 Range/Units 06:23 06:23 RBC 3.28 L (4.10-5.20) X 10*6/uL Hgb 9.5 L (12.0-15.0) g/dL Hct 28.7 L (37.2-46.3) % RDW 18.8 H (11.5-14.5) % MPV 13.8 H (9.5-12.2) FL Eosinophils # 0.02 L (0.04-0.35) X 10*3/uL Potassium 3.3 L (3.5-5.5) mmol/L BUN 4.9 L (9.0-27.0) mg/dL Creatinine 0.3 L (0.6-1.5) mg/dL Calcium 8.1 L (8.7-10.3) mg/dL Total Bilirubin 0.2 L (0.3-1.2) mg/dL AST 12 L (13-35) U/L Alkaline Phosphatase 38 L (41-126) U/L Total Protein 4.1 L (6.2-8.2) g/dL Albumin 2.3 L (3.8-4.9) g/dL Albumin/Globulin Ratio 1.28 L (1.60-3.17) Ratio
[2024-11-23] MEDS: FLUoxetine HCL 20 MG CAP PO SCH (14:36)
[2024-11-23] MEDS: LITHIUM CARBONATE 150 MG CAP PO SCH (14:36)
[2024-11-23] MEDS: POTASSIUM CHLORIDE ER 20 MEQ TAB.ER PO STA (14:37)
[2024-11-24] MEDS: traZODone HCL 100 MG TAB PO PRN (00:34)
--- NOTE | 2024-11-24 08:25 | P.PN ---
Subjective Progress Note Date: 11/24/24 Patient is sleeping in her bed. She appears to be in no distress. The patient was noncooperative and difficult to wake up. When she was awake she states she has had no significant pain. However just she feels rundown. Patient was evaluated by psychiatry for her bipolar disorder. They are been recommended changes to her medication. Patient will be transferred down to [facility] to see her gastric bypass surgeon. No surgical invention is planned for her stay here. Objective - Vital Signs Vital signs: Vital Signs Temp 98.5 F 11/24/24 07:34 Pulse 83 11/24/24 07:34 Resp 17 11/24/24 07:34 BP 110/74 11/24/24 07:34 Pulse Ox 98 11/24/24 07:34 FiO2 Intake & Output 11/23/24 11/24/24 11/24/24 18:59 06:59 18:59 Intake Total 2049 Balance 2049 Intake: Oral 2049 Other: Voiding Method Toilet Toilet # Voids 3 3 - Labs CBC & Chem 7: 11/23/24 06:23 11/23/24 06:23 Labs: Abnormal Lab Results - Last 24 Hours (Table) 11/23/24 11/23/24 Range/Units 06:23 06:23 RBC 3.28 L (4.10-5.20) X 10*6/uL Hgb 9.5 L (12.0-15.0) g/dL Hct 28.7 L (37.2-46.3) % RDW 18.8 H (11.5-14.5) % MPV 13.8 H (9.5-12.2) FL Eosinophils # 0.02 L (0.04-0.35) X 10*3/uL Potassium 3.3 L (3.5-5.5) mmol/L BUN 4.9 L (9.0-27.0) mg/dL Creatinine 0.3 L (0.6-1.5) mg/dL Calcium 8.1 L (8.7-10.3) mg/dL Total Bilirubin 0.2 L (0.3-1.2) mg/dL AST 12 L (13-35) U/L Alkaline Phosphatase 38 L (41-126) U/L Total Protein 4.1 L (6.2-8.2) g/dL Albumin 2.3 L (3.8-4.9) g/dL Albumin/Globulin Ratio 1.28 L (1.60-3.17) Ratio
[2024-11-24] MEDS ORDERED: ONDANSETRON 4 MG/2 ML VIAL IVP PRN (12:38)
[2024-11-24 12:48] LABS: HCT 30.2 % (37.2-46.3); HGB 9.8 g/dL (12.0-15.0); MCH 28.5 pg (27.0-32.0); MCHC 32.5 g/dL (32.0-37.0); MCV 87.8 FL (80.0-97.0); Mean Platelet Volume 13.6 FL (9.5-12.2); NRBC Per 100 WBC 0 X 10*3/uL (0.00-0.01); Platelet Count 174 X 10*3/uL (140-440); RBC 3.44 X 10*6/uL (4.10-5.20); RDW 19.3 % (11.5-14.5); WBC 7.05 X 10*3/uL (4.50-10.00)
[2024-11-24 12:50] LABS: Blood Urea Nitrogen 3.6 mg/dL (9.0-27.0); Calcium 8.3 mg/dL (8.7-10.3); Carbon Dioxide 25.7 mmol/L (21.6-31.8); Chloride 106 mmol/L (96-109); Glucose 82 mg/dL (70-110); Magnesium 1.8 mg/dL (1.5-2.4); Potassium 4.2 mmol/L (3.5-5.5); Sodium 141 mmol/L (135-145)
--- NOTE | 2024-11-24 13:14 | PN ---
PROGRESS NOTE The patient was admitted with severe gastroparesis. Awaiting transfer down to [facility]. No transfers available over the next few days. We will get GI to see her as well as Surgery. Surgery says there is nothing continued and she is to see her gastric surgeon down in [place]. Her return checker see her, continued her on nausea medicines and await further transfer orders they found better and thought just being discharged and drive down to the ER down there and be admitted. Prognosis guarded. Ambulate as tolerated. There is no GI doctor available here in [facility]. MMODL / IJN: [id number] /
--- NOTE | 2024-11-24 14:14 | P.CN ---
Psychiatric Consult - . Consult:: Follow-up Note (Initial Consult by Dr. White on 11/23/24) IDENTIFYING DATA: This patient is a 34 year old mother of two. REASON FOR REFERRAL: Psychiatry was consulted for medication adjustment after gastric bypass surgery Interim History: Geneva Chavez is a 34 year old woman with a history of bipolar disorder, with rapid cycling and gastric sleeve followed by gastric bypass surgery who presented to the ER on 11/21/24 with intractable nausea, vomiting, and epigastric pain. A psychiatry consult was requested to evaluate her medication regimen in light of the gastric surgery. Ms. Chavez did not have any concerning events overnight. She was seen at the bedside today and was awake but resting. She reports her mood is "good" today. Her pain has decreased to a tolerable level, closer to her baseline. She has continued to struggle with sleep onset; she didn't fall asleep until around 3am this morning. No issues or concerns with the medication regimen. She has not noticed any side effects. She feels a little anxious regarding her plan of care as she's unsure when she'll be transferred to the outside hospital. However, she feels she's coping with the uncertainty. No issues with worsening mood symptoms at present. She denies suicidal and homicidal ideation, intent, and plan. She also denies experiencing auditory or visual hallucinations. She endorses a solid network of social support. Please see initial consult note dated 11/23/24 for patient's past history. MENTAL STATUS EXAM: General Appearance: Patient appears to be stated age is alert, pleasant, and cooperative. Patient appears to have fair hygiene and grooming wearing hospital gown with good eye contact. Behavior: Patient is calmly lying in bed without any agitated behavior. Speech: Patient's speech is fluent and nonpressured. Mood/Affect: Patient reports their mood is "good", affect is congruent and euthy awa Suicidality/Homicidality: Patient denies having any suicidal or homicidal ideation intent or plan. Perceptions: Patient denies any visual hallucinations and denies any auditory hallucinations Though content/process: There is no evidence of any delusional thought content and thought process is linear and goal-directed. Memory and concentration: AOX3, grossly intact for the purposes of this session. Judgment and insight: Good IMPRESSIONS: Bipolar disorder with rapid cycling Generalized Anxiety Disorder PLAN: -At this time patient DOES NOT meet criteria for inpatient psychiatric admi ssion. -No medication changes recommended today. Please continue the following: - Seroquel 100 mg nightly for mood stabilization/sleep - Trazodone 100 mg nightly as needed for insomnia, - [place] 150 mg twice daily for mood stabilization, if this is not helping then can consider switching to Lamictal or Depakote. - Prozac 20 mg daily for mood/anxiety -farmworker fur to provide patient with outpatient mental health/psychiatry resources for appropriate follow up upon discharge. Again encouraged the patient to get reconnected with [facility] for continued mental health follow-up. -Communicated plan to patient's nurse -Will continue to follow along -Please contact with any questions.
[2024-11-24 17:54] VITALS: RESP 18; TEMP 98.6
[2024-11-24 19:50] VITALS: BP 129/83; PULSE 75
== END 2024-11-24 23:43 | disposition home or self-care (01) | DRG 254 ==
LOC: 4SSUR 11:01
PROVIDERS: ADMIT Family Medicine; ATTEND Family Medicine
DX: K31.84 Gastroparesis (principal); E43 Unspecified severe protein-calorie malnutrition; T73.0XXA Starvation, initial encounter; R64 Cachexia; R62.7 Adult failure to thrive; Z68.25 Body mass index [BMI] 25.0-25.9, adult; F31.9 Bipolar disorder, unspecified; F41.1 Generalized anxiety disorder; G89.29 Other chronic pain; E83.42 Hypomagnesemia; E86.0 Dehydration; E87.6 Hypokalemia; R20.0 Anesthesia of skin; M79.605 Pain in left leg; M79.604 Pain in right leg; E88.89 Other specified metabolic disorders; I10 Essential (primary) hypertension; K21.9 Gastro-esophageal reflux disease without esophagitis; G47.30 Sleep apnea, unspecified; D50.9 Iron deficiency anemia, unspecified; Z98.84 Bariatric surgery status; Z91.199 Patient's noncompliance with other medical treatment and regimen due to unspecified reason; Z87.891 Personal history of nicotine dependence; Z86.711 Personal history of pulmonary embolism; Z79.899 Other long term (current) drug therapy; Z79.51 Long term (current) use of inhaled steroids; Z91.040 Latex allergy status; Z88.5 Allergy status to narcotic agent
CPT/HCPCS: 80048; 80053; 82040; 82533; 83690; 83735; 84425; 85025; 85027; 87086

== ENCOUNTER 2024-12-31 15:16 | Emergency (ER) | payer OTHER ==
[2024-12-31 15:22] VITALS: TEMP 98.4
--- NOTE | 2024-12-31 15:41 | ED ---
Abdominal Pain HPI - General Chief Complaint: Abdominal Pain Stated Complaint: Dehydration Time Seen by Provider: 12/31/24 15:20 Source: patient, EMS, RN notes reviewed Mode of arrival: EMS Limitations: no limitations - History of Present Illness Initial Comments: 34-year-old female with history of iron deficiency anemia and gastroporessi who presents to the emergency department for complaint of anorexia, nausea, vomiting, abdominal pain over the past 5 days. States the pain is also notable over her lower abdomen. States that she feels she is very dehydrated as her urine has been extremely dark in color. Denies urinary complaints, diarrhea constipation, fevers, chills, chest pain, difficulty in breathing. Patient does have a history of gastric sleeve and Glenn-en-Y procedure (completed 05/2024 at ). Additionally, patient states that she had a recent stent placed within her stomach at [facility] last time she was seen in the hospital. - Related Data Home Medications Medication Instructions Recorded Confirmed Budesonide/Formoterol Fumarate 2 puff INHALATION RT-BID 07/12/24 11/21/24 [Symbicort 160-4.5 Mcg Inhaler] LORazepam [Ativan] 1 mg PO BID PRN 07/12/24 11/21/24 QUEtiapine [SEROquel] 100 mg PO HS 07/12/24 11/21/24 Tiotropium 2.5 Mcg/Puff [Spiriva 2 puff INHALATION RT-DAILY 07/12/24 11/21/24 Respimat 2.5 Mcg] traZODone HCL [Desyrel] 100 mg PO HS 07/12/24 11/21/24 Ondansetron [Zofran] 4 mg PO BID PRN 07/26/24 11/21/24 Nicotine 21Mg/24Hr Patch [Habitrol] 1 patch TRANSDERM DAILY 09/07/24 11/21/24 oxyCODONE HCL [OxyIR] 5 mg PO Q12H PRN 09/07/24 11/21/24 Ferrous Sulfate [Iron (65 MG 325 mg PO DAILY 10/18/24 11/21/24 Elemental)] Propranolol [Inderal] 20 mg PO BID 10/18/24 11/21/24 HYDROcodone/APAP 5-325MG [[place] 1 tab PO BID PRN 03/04/25 03/12/25 5-325] Potassium Chloride ER [K-Dur 20] 20 meq PO Q2D 11/13/24 11/21/24 Previous Rx's Medication Instructions Recorded Pantoprazole Sodium [Protonix] 40 mg PO BID #60 tab 09/20/24 Hydrocortisone [Cortef] 20 mg PO BID 30 Days #60 tab 09/21/24 Cephalexin [Keflex] 500 mg PO Q6HR #40 cap 12/31/24 Allergies Allergy/AdvReac Type Severity Reaction Status Date / Time latex Allergy Rash/Hives Verified 11/21/24 18:30 morphine AdvReac Itching Verified 11/21/24 18:30 Review of Systems ROS Statement: Those systems with pertinent positive or pertinent negative responses have been documented in the HPI. ROS Other: All systems not noted in ROS Statement are negative. Past Medical History Past Medical History: GERD/Reflux, Pulmonary Embolus (PE), Sleep Apnea/CPAP/BIPAP Additional Past Medical History / Comment(s): iron defiency anemia, pulmonary embolism 02/13/24 History of Any Multi-Drug Resistant Organisms: None Reported Past Surgical History: Bariatric Surgery, Section, Cholecystectomy, Tubal Ligation, Uterine Ablation Additional Past Surgical History / Comment(s): 2008 AND 2015 (c/s) and 2010 (cholecyst). 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 gastric bypass 06/11/24 Past Anesthesia/Blood Transfusion Reactions: No Reported Reaction Past Psychological History: Anxiety, Bipolar, Depression Additional Psychological History / Comment(s): Pt on oral medications Smoking Status: Former smoker Past Alcohol Use History: None Reported Additional Past Alcohol Use History / Comment(s): Pt smokes a couple cigarrettes a day Past Drug Use History: None Reported - Past Family History Mother Family Medical History: Asthma, COPD, Diabetes Mellitus, Hypertension Additional Family Medical History / Comment(s): depression, anxiety, sleep apnea, Father Family Medical History: Hypertension Additional Family Medical History / Comment(s): arthritis General Exam Limitations: no limitations ENT exam: Present: normal exam, mucous membranes moist Neck exam: Present: normal inspection. Absent: tenderness, meningismus, lymphadenopathy Respiratory exam: Present: normal lung sounds bilaterally. Absent: respiratory distress, wheezes, rales, rhonchi, stridor Cardiovascular Exam: Present: regular rate, normal rhythm, normal heart sounds. Absent: systolic murmur, diastolic murmur, rubs, gallop, clicks GI/Abdominal exam: Present: soft, tenderness (epigastric), normal bowel sounds. Absent: distended, guarding, rebound, rigid Extremities exam: Present: normal inspection, full ROM, normal capillary refill. Absent: tenderness, pedal edema, joint swelling, calf tenderness Back exam: Present: normal inspection. Absent: CVA tenderness (R), CVA tenderness (L) Course Vital Signs 12/31/24 12/31/24 12/31/24 15:20 18:26 19:17 Temperature 98.4 F Pulse Rate 135 H 116 H 67 Respiratory 15 18 12 Rate Blood Pressure 118/90 126/91 124/95 O2 Sat by Pulse 99 98 97 Oximetry 12/31/24 21:14 Temperature Pulse Rate 87 Respiratory 16 Rate Blood Pressure 123/87 O2 Sat by Pulse 100 Oximetry Medical Decision Making - Medical Decision Making Was pt. sent in by a medical professional or institution (, PA, NECKTIE STITCHER, urgent care, hospital, or detention...) When possible be specific @ -No Did you speak to anyone other than the patient for history (EMS, parent, family, police, friend...)? What history was obtained from this source @ -No Did you review nursing and triage notes (agree or disagree)? Why? @ -I reviewed and agree with nursing and triage notes Were old charts reviewed (outside hosp., previous admission, EMS record, old EKG, old radiological studies, urgent care reports/EKG's, detention records)? Report findings @ -No old charts were reviewed Differential Diagnosis (chest pain, altered mental status, abdominal pain women, abdominal pain men, vaginal bleeding, weakness, fever, dyspnea, syncope, headache, dizziness, GI bleed, back pain, seizure, CVA, palpatations, mental health, musculoskeletal)? @ -Differential Abdominal Pain Women: Appendicitis, Cholecystitis, diverticulosis, ischemic bowel, pancreatitis, hepatitis, UTI, gastroenteritis, AAA, incarcerated hernia, bowel obstruction, constipation, inflammatory bowel, hepatitis, peptic ulcer disease, splenic infarction, perforated viscus, vulvitis, ovarian torsion, PID, kidney stone, placenta abruption, this is not meant to be an all-inclusive list EKG interpreted by me (3pts min.). @ -None X-rays interpreted by me (1pt min.). @ -None done CT interpreted by me (1pt min.). @ -None done U/S interpreted by me (1pt. min.). @ -None done What testing was considered but not performed or refused? (CT, X-rays, U/S, labs)? Why? @ -None What meds were considered but not given or refused? Why? @ -None Did you discuss the management of the patient with other professionals (pro fessionals i.e. , PA, NECKTIE STITCHER, lab, RT, psych nurse, nursing home social worker, bellhop, teacher, senior administrative services officer, cyanide case hardener)? Give summary @ -No Was smoking cessation discussed for >3mins.? @ -No Was critical care preformed (if so, how long)? @ -No Were there social determinants of health that impacted care today? How? (Homelessness, low income, unemployed, alcoholism, drug addiction, transportation, low edu. Level, literacy, decrease access to med. care, [place] [facility], rehab)? @ -No Was there de-escalation of care discussed even if they declined (Discuss DNR or withdrawal of care, Hospice)? DNR status @ -No What co-morbidities impacted this encounter? (DM, HTN, Smoking, COPD, CAD, Cancer, CVA, ARF, Chemo, Hep., AIDS, mental health diagnosis, sleep apnea, morbid obesity)? @ -None Was patient admitted / discharged? Hospital course, mention meds given and route, prescriptions, significant lab abnormalities, going to OR and other pertinent info. @ -Discharge. 34-year-old female presents to the emergency department with abdominal pain, nausea, and vomiting. Patient is tachycardic on arrival with a heart rate of 135. She is noted to be dry heaving on physical examination with mild epigastric tenderness. She is provided with IV fluids, Zofran, pain medication. I do feel leukocytosis that is likely reactive at 13.64 secondary to emesis. Mild dehydration with a sodium 133 and hypokalemia with potassium at 3.1. She is provided with oral dose of potassium. Urinalysis remarkable for infection with large leukocyte esterase, white cells and bacteria. hCG is negative. On reevaluation patient states that she is feeling well. She has no additional episodes of emesis or dry heaving since administration of Zofran. She is provided with dose of Rocephin for urinary tract infection and urine is sent for culture. Keflex prescription ordered. Recommend follow-up with surgeon and primary care provider. Return parameters discussed. Case discussed with Dr. Lorenzo Undiagnosed new problem with uncertain prognosis? @ -No Drug Therapy requiring intensive monitoring for toxicity (Heparin, Nitro, Insulin, Cardizem)? @ -No Were any procedures done? @ -No Diagnosis/symptom? @ -Urinary tract infection, chronic abdominal pain, gastroparesis, hypokalemia Acute, or Chronic, or Acute on Chronic? @ -Acute, acute on chronic Uncomplicated (without systemic symptoms) or Complicated (systemic symptoms)? @ -Uncomplicated Side effects of treatment? @ -No Exacerbation, Progression, or Severe Exacerbation? @ -No Poses a threat to life or bodily function? How? (Chest pain, [place], [place], pneumonia, PE, COPD, DKA, ARF, appy, cholecystitis, CVA, Diverticulitis, Homicidal, Suicidal, threat to staff... and all critical care pts) @ -No - Lab Data Result diagrams: 12/31/24 16:20 12/31/24 16:20 Lab Results 12/31/24 12/31/24 12/31/24 Range/Units 16:20 16:20 16:20 WBC 13.64 H (4.50-10.00) 10*3/uL RBC 4.56 (4.10-5.20) 10*6/uL Hgb 13.7 (12.0-15.0) g/dL Hct 38.0 (37.2-46.3) % MCV 83.3 (80.0-97.0) fL MCH 30.0 (27.0-32.0) pg MCHC 36.1 (32.0-37.0) g/dL Plt Count 327 (140-440) 10*3/uL MPV 10.1 (9.5-12.2) fL Immature Gran % (Auto) 0.5 % Neutrophils % 65.7 % Lymphocytes % 23.8 % Monocytes % 9.4 % Eosinophils % 0.3 % Basophils % 0.3 % Immature Gran # 0.07 H (0.00-0.04) 10*3/uL Neutrophils # 8.97 H (1.80-7.70) 10*3/uL Lymphocytes # 3.24 (0.90-5.00) 10*3/uL Monocytes # 1.28 H (0.20-1.00) 10*3/uL Eosinophils # 0.04 (0.04-0.35) 10*3/uL Basophils # 0.04 (0.00-0.10) 10*3/uL Sodium 133 L (137-145) mmol/L Potassium 3.1 L (3.5-5.1) mmol/L Chloride 95 L (98-107) mmol/L Carbon Dioxide 22 (22-30) mmol/L Anion Gap 16 mmol/L BUN 6 L (7-17) mg/dL Creatinine 0.33 L (0.52-1.04) mg/dL Est GFR (CKD-EPI)AfAm >90 (>60 ml/min/1.73 sqM) Est GFR (CKD-EPI)NonAf >90 (>60 ml/min/1.73 sqM) Glucose 73 L (74-99) mg/dL Plasma Lactic Acid Case 1.1 (0.7-2.0) mmol/L Calcium 9.1 (8.4-10.2) mg/dL Magnesium 1.5 L (1.6-2.3) mg/dL Total Bilirubin 0.9 (0.2-1.3) mg/dL AST 37 H (14-36) U/L ALT 28 (4-34) U/L Alkaline Phosphatase 84 (38-126) U/L Total Protein 6.1 L (6.3-8.2) g/dL Albumin 3.2 L (3.5-5.0) g/dL Amylase 57 (30-110) U/L Lipase 81 (23-300) U/L Urine Color Urine Appearance (Clear) Urine pH (5.0-8.0) Ur Specific [place] (1.001-1.035) Urine Protein (Negative) Urine Glucose (UA) (Negative) Urine Ketones (Negative) Urine Blood (Negative) Urine Nitrite (Negative) Urine Bilirubin (Negative) Urine Urobilinogen (<2.0) mg/dL Ur Leukocyte Esterase (Negative) Urine RBC (0-5) /hpf Urine WBC (0-5) /hpf Ur Squamous Epith Cells (0-4) /hpf Urine Bacteria (None) /hpf Hyaline Casts (0-2) /lpf Urine Mucus (None) /hpf Urine Yeast (Budding) (None) /hpf Urine HCG, Qual (Not Detectd) 12/31/24 12/31/24 Range/Units 20:37 20:37 WBC (4.50-10.00) 10*3/uL RBC (4.10-5.20) 10*6/uL Hgb (12.0-15.0) g/dL Hct (37.2-46.3) % MCV (80.0-97.0) fL MCH (27.0-32.0) pg MCHC (32.0-37.0) g/dL Plt Count (140-440) 10*3/uL MPV (9.5-12.2) fL Immature Gran % (Auto) % Neutrophils % % Lymphocytes % % Monocytes % % Eosinophils % % Basophils % % Immature Gran # (0.00-0.04) 10*3/uL Neutrophils # (1.80-7.70) 10*3/uL Lymphocytes # (0.90-5.00) 10*3/uL Monocytes # (0.20-1.00) 10*3/uL Eosinophils # (0.04-0.35) 10*3/uL Basophils # (0.00-0.10) 10*3/uL Sodium (137-145) mmol/L Potassium (3.5-5.1) mmol/L Chloride (98-107) mmol/L Carbon Dioxide (22-30) mmol/L Anion Gap mmol/L BUN (7-17) mg/dL Creatinine (0.52-1.04) mg/dL Est GFR (CKD-EPI)AfAm (>60 ml/min/1.73 sqM) Est GFR (CKD-EPI)NonAf (>60 ml/min/1.73 sqM) Glucose (74-99) mg/dL Plasma Lactic Acid Case (0.7-2.0) mmol/L Calcium (8.4-10.2) mg/dL Magnesium (1.6-2.3) mg/dL Total Bilirubin (0.2-1.3) mg/dL AST (14-36) U/L ALT (4-34) U/L Alkaline Phosphatase (38-126) U/L Total Protein (6.3-8.2) g/dL Albumin (3.5-5.0) g/dL Amylase (30-110) U/L Lipase (23-300) U/L Urine Color Yellow Urine Appearance Turbid H (Clear) Urine pH 6.5 (5.0-8.0) Ur Specific [place] 1.026 (1.001-1.035) Urine Protein 1+ H (Negative) Urine Glucose (UA) Negative (Negative) Urine Ketones 4+ H (Negative) Urine Blood Trace H (Negative) Urine Nitrite Negative (Negative) Urine Bilirubin 1+ H (Negative) Urine Urobilinogen 6.0 (<2.0) mg/dL Ur Leukocyte Esterase Large H (Negative) Urine RBC 31 H (0-5) /hpf Urine WBC 118 H (0-5) /hpf Ur Squamous Epith Cells 10 H (0-4) /hpf Urine Bacteria Few H (None) /hpf Hyaline Casts 17 H (0-2) /lpf Urine Mucus Many H (None) /hpf Urine Yeast (Budding) Occasional H (None) /hpf Urine HCG, Qual Not Detected (Not Detectd) Disposition Clinical Impression: Gastroparesis, UTI (urinary tract infection), Chronic abdominal pain Disposition: HOME SELF-CARE Condition: Good Instructions (If sedation given, give patient instructions): Urinary Tract Infection in Women (ED) Additional Instructions: Please return to the Emergency Department if symptoms worsen or any other concerns. Prescriptions: Cephalexin [Keflex] 500 mg PO Q6HR #40 cap Is patient prescribed a controlled substance at d/c from ED?: No Referrals: Justin Molina MD [Primary Care Provider] - 1-2 days Time of Disposition: 21:31
[2024-12-31 16:24] LABS: Basophils # (A) 0.04 10*3/uL (0.00-0.10); Basophils % (A) 0.3 %; Eosinophils # (A) 0.04 10*3/uL (0.04-0.35); Eosinophils % (A) 0.3 %; HGB 13.7 g/dL (12.0-15.0); Lymphocytes # (A) 3.24 10*3/uL (0.90-5.00); Lymphocytes % (A) 23.8 %; MCHC 36.1 g/dL (32.0-37.0); MCV 83.3 fL (80.0-97.0); Mean Platelet Volume 10.1 fL (9.5-12.2); Monocytes # (A) 1.28 10*3/uL (0.20-1.00); Monocytes % (A) 9.4 %; Neutrophils # (A) 8.97 10*3/uL (1.80-7.70); Neutrophils % (A) 65.7 %; Platelet Count 327 10*3/uL (140-440); RBC 4.56 10*6/uL (4.10-5.20); RDW 18.3 % (11.5-14.5); WBC 13.64 10*3/uL (4.50-10.00)
[2024-12-31] MEDS: SODIUM CHLORIDE 0.9% 1,000 ML IV SCH (16:26)
[2024-12-31] MEDS: ONDANSETRON 4 MG/2 ML VIAL IVP STA (16:27)
[2024-12-31] MEDS: PANTOPRAZOLE 40 MG/10 ML VIAL IVP STA (16:29)
[2024-12-31 16:39] LABS: ALT 28 U/L (4-34); African American GFR (CKD) >90 (>60 ml/min/1.73 sqM); Albumin 3.2 g/dL (3.5-5.0); Amylase 57 U/L (30-110); Anion Gap 16 mmol/L; Blood Urea Nitrogen 6 mg/dL (7-17); Calcium 9.1 mg/dL (8.4-10.2); Carbon Dioxide 22 mmol/L (22-30); Chloride 95 mmol/L (98-107); Glucose 73 mg/dL (74-99); Lipase 81 U/L (23-300); Non-African American GFR(CKD) >90 (>60 ml/min/1.73 sqM); Sodium 133 mmol/L (137-145); Total Bilirubin 0.9 mg/dL (0.2-1.3); Total Protein 6.1 g/dL (6.3-8.2)
[2024-12-31] MEDS: HYDROmorphone 1 MG/ML 1 ML SYRINGE IVP STA ×2 (16:44→19:16)
[2024-12-31 16:47] LABS: AST 37 U/L (14-36); Alkaline Phosphatase 84 U/L (38-126); Magnesium 1.5 mg/dL (1.6-2.3); Potassium 3.1 mmol/L (3.5-5.1)
[2024-12-31] MEDS: POTASSIUM CHLORIDE ER 20 MEQ TAB.ER PO STA (17:18)
[2024-12-31 21:10] LABS: Appearance,Urine Turbid (Clear); Bacteria,Urine Few /hpf; Bilirubin,Urine 1+ (Negative); Blood,Urine Trace (Negative); Budding Yeast,Urine Occasional /hpf; Color,Urine Yellow; Glucose,Urine (UA) Negative (Negative); Hyaline Casts,Urine 17 /lpf (0-2); Ketones,Urine 4+ (Negative); Leukocyte Esterase,Urine Large (Negative); Mucus,Urine Many /hpf; Nitrite,Urine Negative (Negative); PH, Urine 6.5 (5.0-8.0); Protein,Urine 1+ (Negative); RBC,Urine 31 /hpf (0-5); Specific Gravity,Urine 1.026 (1.001-1.035); Squamous Epithelial Cell,Urine 10 /hpf (0-4); WBC,Urine 118 /hpf (0-5)
[2024-12-31 21:15] VITALS: BP 123/87; PULSE 87; RESP 16
[2024-12-31] MEDS: cefTRIAXone IN SWFI 1,000 MG/10 ML SYRINGE IVP STA (21:36)
== END 2024-12-31 21:47 | disposition home or self-care (01) ==
LOC: EC 15:16
DX: G89.29 Other chronic pain (principal); N39.0 Urinary tract infection, site not specified; K31.84 Gastroparesis; E87.6 Hypokalemia; Z88.5 Allergy status to narcotic agent; Z91.040 Latex allergy status; Z87.891 Personal history of nicotine dependence
CPT/HCPCS: 36415; 80053; 82150; 83605; 83690; 83735; 85025; 81001; 81025; 87086; 99285; 96374; 96375 ×3; 96376; 96361 ×4; J2405; J0696; J1171; J2470

== ENCOUNTER 2025-01-02 18:42 | Emergency (ER) | payer OTHER ==
[2025-01-02 18:47] VITALS: RESP 18
--- NOTE | 2025-01-02 19:30 | ED ---
Abdominal Pain HPI - General Chief Complaint: Abdominal Pain Stated Complaint: abd pain, weakness, vomiting Time Seen by Provider: 01/02/25 19:29 Source: patient, RN notes reviewed, old records reviewed Mode of arrival: wheelchair Limitations: no limitations - History of Present Illness Initial Comments: 34-year-old female with a past medical history significant of Glenn-en-Y gastric bypass completed at [facility] in May 2024 presented to ER for evaluation of abdominal pain. Patient states she was recently admitted to [facility] which a gastric stent was placed. For the past week patient has been having severe sharp epigastric abdominal discomfort. She also reports nausea and vomiting unable to keep anything down. She denies any hematic emesis or coffee-ground emesis. She has tried taking [id number] Tylenol without relief of pain. Patient was seen here 2 days prior, 12-31-2024 for similar complaint. Patient received symptomatic control and was discharged home. Patient reports she continues to feel extremely weak with a decreased oral intake given pain and nausea. Patient also reports weight loss. Patient is scheduled to follow-up with surgeon at [facility] on 01 16 25. No other complaints. - Related Data Home Medications Medication Instructions Recorded Confirmed Budesonide/Formoterol Fumarate 2 puff INHALATION RT-BID 07/12/24 11/21/24 [Symbicort 160-4.5 Mcg Inhaler] LORazepam [Ativan] 1 mg PO BID PRN 07/12/24 11/21/24 QUEtiapine [SEROquel] 100 mg PO HS 07/12/24 11/21/24 Tiotropium 2.5 Mcg/Puff [Spiriva 2 puff INHALATION RT-DAILY 07/12/24 11/21/24 Respimat 2.5 Mcg] traZODone HCL [Desyrel] 100 mg PO HS 07/12/24 11/21/24 Ondansetron [Zofran] 4 mg PO BID PRN 07/26/24 11/21/24 Nicotine 21Mg/24Hr Patch [Habitrol] 1 patch TRANSDERM DAILY 09/07/24 11/21/24 oxyCODONE HCL [OxyIR] 5 mg PO Q12H PRN 09/07/24 11/21/24 Ferrous Sulfate [Iron (65 MG 325 mg PO DAILY 10/18/24 11/21/24 Elemental)] Propranolol [Inderal] 20 mg PO BID 10/18/24 11/21/24 HYDROcodone/APAP 5-325MG [[place] 1 tab PO BID PRN 11/13/24 11/21/24 5-325] Potassium Chloride ER [K-Dur 20] 20 meq PO Q2D 11/13/24 11/21/24 Previous Rx's Medication Instructions Recorded Pantoprazole Sodium [Protonix] 40 mg PO BID #60 tab 09/20/24 Hydrocortisone [Cortef] 20 mg PO BID 30 Days #60 tab 09/21/24 Cephalexin [Keflex] 500 mg PO Q6HR #40 cap 12/31/24 Allergies Allergy/AdvReac Type Severity Reaction Status Date / Time latex Allergy Rash/Hives Verified 11/21/24 18:30 morphine AdvReac Itching Verified 11/21/24 18:30 Review of Systems ROS Statement: Those systems with pertinent positive or pertinent negative responses have been documented in the HPI. ROS Other: All systems not noted in ROS Statement are negative. Past Medical History Past Medical History: GERD/Reflux, Pulmonary Embolus (PE), Sleep Apnea/CPAP/BIPAP Additional Past Medical History / Comment(s): iron defiency anemia, pulmonary embolism 02/13/24 History of Any Multi-Drug Resistant Organisms: None Reported Past Surgical History: Bariatric Surgery, Section, Cholecystectomy, Tubal Ligation, Uterine Ablation Additional Past Surgical History / Comment(s): 2008 AND 2015 (c/s) and 2010 (cholecyst). 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 gastric bypass 06/11/24 Past Anesthesia/Blood Transfusion Reactions: No Reported Reaction Past Psychological History: Anxiety, Bipolar, Depression Smoking Status: Former smoker Past Alcohol Use History: None Reported Past Drug Use History: None Reported - Past Family History Mother Family Medical History: Asthma, COPD, Diabetes Mellitus, Hypertension Additional Family Medical History / Comment(s): depression, anxiety, sleep apnea, Father Family Medical History: Hypertension Additional Family Medical History / Comment(s): arthritis General Exam Limitations: no limitations General appearance: alert, in no apparent distress, other (appears weak) Respiratory exam: Present: normal lung sounds bilaterally. Absent: respiratory distress, wheezes, rales, rhonchi, stridor Cardiovascular Exam: Present: normal rhythm, tachycardia, normal heart sounds GI/Abdominal exam: Present: soft, tenderness (epigastric ), normal bowel sounds Extremities exam: Present: normal inspection, full ROM, normal capillary refill. Absent: tenderness, pedal edema, joint swelling, calf tenderness Neurological exam: Present: alert, oriented X3, CN II-XII intact Skin exam: Present: warm, dry, intact, normal color. Absent: rash Course Vital Signs 01/02/25 01/02/25 01/02/25 18:44 21:58 22:57 Temperature 98.3 F 98.7 F Pulse Rate 138 H 117 H 116 H Respiratory 18 18 18 Rate Blood Pressure 112/84 123/92 110/83 O2 Sat by Pulse 99 99 94 L Oximetry - Reevaluation(s) Reevaluation #1: 01/02/25 22:15 Case discussed with Juanjo Lugo who accepts transfer. Accepting physician, Dr. Batista. Medical Decision Making - Medical Decision Making Was pt. sent in by a medical professional or institution (, PA, [employer], urgent care, hospital, or penitentiary...) When possible be specific @ -No Did you speak to anyone other than the patient for history (EMS, parent, family, police, friend...)? What history was obtained from this source @ -No Did you review nursing and triage notes (agree or disagree)? Why? @ -I reviewed and agree with nursing and triage notes Were old charts reviewed (outside hosp., previous admission, EMS record, old EKG, old radiological studies, urgent care reports/EKG's, penitentiary records)? Report findings @ER visit from 12-31-2024 patient seen for abdominal pain along with nausea and vomiting. Patient laboratory studies concerning of dehydration for which patient received IV fluids along with symptomatic control. Patient was ultimately discharged home and instructed to follow-up with surgeon and PCP. Differential Diagnosis (chest pain, altered mental status, abdominal pain women, abdominal pain men, vaginal bleeding, weakness, fever, dyspnea, syncope, headache, dizziness, GI bleed, back pain, seizure, CVA, palpatations, mental health, musculoskeletal)? @ -Differential Abdominal Pain Women:Appendicitis, Cholecystitis, diverticulosis, ischemic bowel, pancreatitis, hepatitis, UTI, gastroenteritis, AAA, incarcerated hernia, bowel obstruction, constipation, inflammatory bowel, hepatitis, peptic ulcer disease, splenic infarction, perforated viscus, vulvitis, ovarian torsion, PID, kidney stone, placenta abruption, this is not meant to be an all-inclusive list EKG interpreted by me (3pts min.). @ -As above X-rays interpreted by me (1pt min.). @ -None done CT interpreted by me (1pt min.). @ -CT abdomen pelvis without contrast showing no acute intra-abdominal process. No evidence of bowel obstruction. Urinary bladder distention likely secondary to lack of recent void. Postsurgical changes to bowel without evidence of obstruction. Cholecystectomy changes. U/S interpreted by me (1pt. min.). @ -None done What testing was considered but not performed or refused? (CT, X-rays, U/S, labs)? Why? @ -None What meds were considered but not given or refused? Why? @ -None Did you discuss the management of the patient with other professionals (professionals i.e. , PA, [employer], lab, RT, psych nurse, social security benefits interviewer, rail assembler, teacher, maritime officer, pillowcase cutter)? Give summary @ -Case discussed with Juanjo Lugo, who accepts transfer. Was smoking cessation discussed for >3mins.? @ -No Was critical care preformed (if so, how long)? @ -No Were there social determinants of health that impacted care today? How? (Homelessness, low income, unemployed, alcoholism, drug addiction, transportation, low edu. Level, literacy, decrease access to med. care, long-term, rehab)? @ -No Was there de-escalation of care discussed even if they declined (Discuss DNR or withdrawal of care, Hospice)? DNR status @ -No What co-morbidities impacted this encounter? (DM, HTN, Smoking, COPD, CAD, Cancer, CVA, ARF, Chemo, Hep., AIDS, mental health diagnosis, sleep apnea, morbid obesity)? 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 Gastric stent in place. Iron deficiency anemia Was patient admitted / discharged? Hospital course, mention meds given and route, prescriptions, significant lab abnormalities, going to OR and other pertinent info. @ -Transferred to Juanjo Lugo. 34-year-old female presenting to the ER for evaluation of nausea, vomiting and abdominal pain x 1 week. Patient frequents ER for similar complaint. Patient was seen here on 12-31-2024 for similar complaint received symptomatic control and was discharged home. Patient returns for increase of symptoms. Upon arrival, patient is tachycardic 138 vitals otherwise acceptable limits. Tachycardia possibly related to pain and dehydration. Patient is weak-appearing and does appear to have a noticeable weight loss from prior visits. Exam remarkable for focal epigastric abdominal tenderness without rebound or guarding. Given presenting symptoms, patient's medical history and recent weight loss laboratory study along with CT abdomen pelvis ordered along with symptomatic treatment, patient is agreeable. Laboratory studies show leukocytosis of 11.8 with a left shift likely reactive from vomiting. Hemoglobin 11.7 patient has a history of iron deficiency anemia. Patient denying any active bleeding. CMP concerning for dehydration with a potassium of 3.0, patient given 40 mEq ordered, this was not given. hCG <2.4. CT abdomen pelvis was ordered with IV contrast but patient's IV line extravasation this was done without contrast and x-ray of right humerus was obtained showing a large volume of high density contrast within the right arm. Heating pack and compression was placed over extravasation area. CT abdomen pelvis was obtained showing no acute intra-abdominal process or evidence of bowel obstruction. With patient's recent gastric stent placement at [facility] and for continuity of care, transfer was considered and accepted by . Patient received symptomatic treatment with IV Dilaudid, Zofran, Protonix and IV fluids. Upon reevaluation, patient reported mild improvement of pain and is agreeable for transfer. Patient will be transferred in stable condition via EMS to [facility] for further evaluation and treatment. Case discussed with ED attending, Dr. Arredondo. Undiagnosed new problem with uncertain prognosis? @ -No Drug Therapy requiring intensive monitoring for toxicity (Heparin, Nitro, Insulin, Cardizem)? @ -No Were any procedures done? @ -No Diagnosis/symptom? @ -Abdominal pain/nausea and vomiting/hypokalemia Acute, or Chronic, or Acute on Chronic? @ -Acute Uncomplicated (without systemic symptoms) or Complicated (systemic symptoms)? @ -Complicated Side effects of treatment? @ -No Exacerbation, Progression, or Severe Exacerbation? @ -No Poses a threat to life or bodily function? How? (Chest pain, [place], [place], pneumonia, PE, COPD, DKA, ARF, appy, cholecystitis, CVA, Diverticulitis, Homicidal, Suicidal, threat to staff... and all critical care pts) @ -Possibly - Lab Data Result diagrams: 01/02/25 19:27 01/02/25 19:27 Lab Results 01/02/25 01/02/25 01/02/25 Range/Units 19:27 19:27 19:27 WBC 11.83 H (4.50-10.00) 10*3/uL RBC 3.91 L (4.10-5.20) 10*6/uL Hgb 11.7 L (12.0-15.0) g/dL Hct 33.0 L (37.2-46.3) % MCV 84.4 (80.0-97.0) fL MCH 29.9 (27.0-32.0) pg MCHC 35.5 (32.0-37.0) g/dL Plt Count 354 (140-440) 10*3/uL MPV 9.8 (9.5-12.2) fL Immature Gran % (Auto) 0.6 % Neutrophils % 68.6 % Lymphocytes % 23.8 % Monocytes % 6.5 % Eosinophils % 0.2 % Basophils % 0.3 % Immature Gran # 0.07 H (0.00-0.04) 10*3/uL Neutrophils # 8.12 H (1.80-7.70) 10*3/uL Lymphocytes # 2.82 (0.90-5.00) 10*3/uL Monocytes # 0.77 (0.20-1.00) 10*3/uL Eosinophils # 0.02 L (0.04-0.35) 10*3/uL Basophils # 0.03 (0.00-0.10) 10*3/uL Sodium 137 (137-145) mmol/L Potassium 3.0 L (3.5-5.1) mmol/L Chloride 103 (98-107) mmol/L Carbon Dioxide 16 L (22-30) mmol/L Anion Gap 18 mmol/L BUN <2 L (7-17) mg/dL Creatinine 0.32 L (0.52-1.04) mg/dL Est GFR (CKD-EPI)AfAm >90 (>60 ml/min/1.73 sqM) Est GFR (CKD-EPI)NonAf >90 (>60 ml/min/1.73 sqM) Glucose 68 L (74-99) mg/dL Plasma Lactic Acid Case 1.0 (0.7-2.0) mmol/L Calcium 9.2 (8.4-10.2) mg/dL Total Bilirubin 0.7 (0.2-1.3) mg/dL AST 28 (14-36) U/L ALT 27 (4-34) U/L Alkaline Phosphatase 90 (38-126) U/L Total Protein 5.8 L (6.3-8.2) g/dL Albumin 3.0 L (3.5-5.0) g/dL Amylase 60 (30-110) U/L Lipase 92 (23-300) U/L HCG, Quant mIU/mL 01/02/25 Range/Units 19:27 WBC (4.50-10.00) 10*3/uL RBC (4.10-5.20) 10*6/uL Hgb (12.0-15.0) g/dL Hct (37.2-46.3) % MCV (80.0-97.0) fL MCH (27.0-32.0) pg MCHC (32.0-37.0) g/dL Plt Count (140-440) 10*3/uL MPV (9.5-12.2) fL Immature Gran % (Auto) % Neutrophils % % Lymphocytes % % Monocytes % % Eosinophils % % Basophils % % Immature Gran # (0.00-0.04) 10*3/uL Neutrophils # (1.80-7.70) 10*3/uL Lymphocytes # (0.90-5.00) 10*3/uL Monocytes # (0.20-1.00) 10*3/uL Eosinophils # (0.04-0.35) 10*3/uL Basophils # (0.00-0.10) 10*3/uL Sodium (137-145) mmol/L Potassium (3.5-5.1) mmol/L Chloride (98-107) mmol/L Carbon Dioxide (22-30) mmol/L Anion Gap mmol/L BUN (7-17) mg/dL Creatinine (0.52-1.04) mg/dL Est GFR (CKD-EPI)AfAm (>60 ml/min/1.73 sqM) Est GFR (CKD-EPI)NonAf (>60 ml/min/1.73 sqM) Glucose (74-99) mg/dL Plasma Lactic Acid Case (0.7-2.0) mmol/L Calcium (8.4-10.2) mg/dL Total Bilirubin (0.2-1.3) mg/dL AST (14-36) U/L ALT (4-34) U/L Alkaline Phosphatase (38-126) U/L Total Protein (6.3-8.2) g/dL Albumin (3.5-5.0) g/dL Amylase (30-110) U/L Lipase (23-300) U/L HCG, Quant <2.4 mIU/mL - EKG Data -: EKG Interpreted by Me EKG Comments: EKG taken at 19: 38 showing a sinus tachycardia. No ST segment elevations or depressions. Ventricular rate 118, TX interval 169, QRS duration 85, QT/QTc 35 1/421. - Radiology Data Radiology results: report reviewed, image reviewed Disposition Clinical Impression: Abdominal pain Disposition: OTHER INSTITUTION NOT DEFINED Condition: Stable Referrals: Justin Molina MD [Primary Care Provider] - 1-2 days Time of Disposition: 22:43 - Out of Hospital Transfer - Req. Specs Out of Hospital Transfer - Requested Specifics: Other Emergency Center ([facility])
[2025-01-02] MEDS: SODIUM CHLORIDE 0.9% 1,000 ML IV ONE (19:35)
[2025-01-02 19:36] LABS: Basophils # (A) 0.03 10*3/uL (0.00-0.10); Basophils % (A) 0.3 %; Eosinophils # (A) 0.02 10*3/uL (0.04-0.35); Eosinophils % (A) 0.2 %; HGB 11.7 g/dL (12.0-15.0); Lymphocytes # (A) 2.82 10*3/uL (0.90-5.00); Lymphocytes % (A) 23.8 %; MCH 29.9 pg (27.0-32.0); MCHC 35.5 g/dL (32.0-37.0); MCV 84.4 fL (80.0-97.0); Mean Platelet Volume 9.8 fL (9.5-12.2); Monocytes # (A) 0.77 10*3/uL (0.20-1.00); Monocytes % (A) 6.5 %; Neutrophils # (A) 8.12 10*3/uL (1.80-7.70); Neutrophils % (A) 68.6 %; Platelet Count 354 10*3/uL (140-440); RBC 3.91 10*6/uL (4.10-5.20); WBC 11.83 10*3/uL (4.50-10.00)
[2025-01-02] MEDS: ONDANSETRON 4 MG/2 ML VIAL IVP STA (19:36)
[2025-01-02] MEDS: HYDROmorphone 1 MG/ML 1 ML SYRINGE IVP STA ×2 (19:38→21:57)
[2025-01-02 19:56] LABS: ALT 27 U/L (4-34); AST 28 U/L (14-36); African American GFR (CKD) >90 (>60 ml/min/1.73 sqM); Alkaline Phosphatase 90 U/L (38-126); Amylase 60 U/L (30-110); Anion Gap 18 mmol/L; Blood Urea Nitrogen <2 mg/dL (7-17); Calcium 9.2 mg/dL (8.4-10.2); Carbon Dioxide 16 mmol/L (22-30); Chloride 103 mmol/L (98-107); Glucose 68 mg/dL (74-99); Lipase 92 U/L (23-300); Non-African American GFR(CKD) >90 (>60 ml/min/1.73 sqM); Sodium 137 mmol/L (137-145); Total Bilirubin 0.7 mg/dL (0.2-1.3); Total Protein 5.8 g/dL (6.3-8.2)
--- NOTE | 2025-01-02 21:09 | XR ---
EXAMINATION TYPE: XR humerus RT DATE OF EXAM: 01/02/2025 8:49 PM COMPARISON: None CLINICAL INDICATION: Female, 34 years old with history of contrast extravasation?; PHH, pain TECHNIQUE: XR humerus RT examined in frontal and lateral projections. FINDINGS: High-density contrast material seen throughout the right arm measuring up to 27 x 33 mm. No evidence of acute osseous pathology, joint dislocation, or soft tissue swelling. The remaining porti ons of the visualized chest are unremarkable. The remaining portions of the visualized chest are unr emarkable. Degeneration changes of the shoulder with osteophyte formation of the glenoid, humeral hea d acromion and clavicle. IMPRESSION: Large volume of high density contrast in the right arm. Surgical consultation and evaluation recommen ded [facility], , 01/02/2025 9:06 PM
--- NOTE | 2025-01-02 21:17 | CT ---
EXAMINATION TYPE: CT abdomen pelvis w con DATE OF EXAM: 01/02/2025 8:58 PM COMPARISON: CT abdomen pelvis most recent from 10/20/2024 CLINICAL INDICATION: Female, 34 years old with history of abd pain hx gastric stent and gastric bypas s; Pt c/o abdominal pain, nausea, and vomiting hx of iron defiency anemia, pulmonary embolism 02/13/24 , tubal, bariatric sx, khushbu. Pt extravasated contrast, ER doctor notified and had x-ray ordered. Sen ding images without contrast. TECHNIQUE: Axial CT abdomen pelvis w con;Sagittal and coronal reformats were created on a separate w orkstation. Contrast used:100 ml mL of Isovue 300 with IV Contrast, (none if empty) Oral contrast used: without Oral Contrast (none if empty) CT DLP: 529.8 mGycm, Automated exposure control for dose reduction was used. FINDINGS: LOWER CHEST: Unremarkable ABDOMEN LIVER: Unremarkable GALLBLADDER AND BILE DUCTS: Unremarkable. PANCREAS: Unremarkable. SPLEEN: Unremarkable. ADRENAL GLANDS: Unremarkable. KIDNEYS AND URETERS: No evidence of hydronephrosis or obstructing renal calculus. The ureters are unr emarkable. PELVIS BLADDER: No evidence for wall thickening or mass given limitations of exam. Distention of the urinary bladder. REPRODUCTIVE: Unremarkable. ABDOMEN & PELVIS STOMACH AND BOWEL: No evidence of bowel obstruction. Postsurgical changes to the gastric lumen and sm all bowel. Redundant sigmoid colon with gaseous distention. Decompression of the transverse colon wit h prominent reynaga possibly due to the decompressed status. PERITONEUM/RETROPERITONEUM: No evidence of pneumoperitoneum or free fluid. VASCULATURE: No evidence of aortic aneurysm. MUSCULOSKELETAL: No acute osseous abnormalities LYMPH NODES: No gross evidence for lymphadenopathy. SOFT TISSUE/ABDOMINAL WALL: Unremarkable IMPRESSION: 1. No evidence for acute abdominal process. No evidence for bowel obstruction. 2. Urinary bladder distention likely secondary to patient's lack of recent void. 3. Postsurgical changes to the bowel without evidence for obstruction. 4. Cholecystectomy changes. [facility], , 01/02/2025 9:15 PM
[2025-01-02] MEDS: PANTOPRAZOLE 40 MG/10 ML VIAL IVP STA (21:53)
[2025-01-02 22:01] VITALS: TEMP 98.7
[2025-01-02] MEDS: POTASSIUM CHLORIDE ER 20 MEQ TAB.ER PO STA (22:57)
[2025-01-02 23:00] VITALS: BP 110/83; PULSE 116
== END 2025-01-03 00:06 | disposition other institution (70) ==
LOC: EC 18:42
DX: R10.13 Epigastric pain (principal); E87.6 Hypokalemia; R00.0 Tachycardia, unspecified; D72.829 Elevated white blood cell count, unspecified; Z88.5 Allergy status to narcotic agent; Z91.040 Latex allergy status; Z87.891 Personal history of nicotine dependence; Z98.84 Bariatric surgery status
CPT/HCPCS: 99285; 96374; 96375 ×2; 96376; 96361 ×2; 93005; 80053; 82150; 83605; 83690; 85025; 84702; 73060; 74177; J2405; J1171; Q9967; J2470; 36415

== ENCOUNTER 2025-01-11 18:19 | Observation (INO) | payer OTHER ==
--- NOTE | 2025-01-11 19:37 | ED ---
General Adult HPI - General Source: patient, EMS, RN notes reviewed Mode of arrival: EMS Limitations: physical limitation - History of Present Illness Onset/Timin -: days(s) Location: upper extremity, lower extremity Severity scale (1-10): 6 Quality: burning, aching Consistency: constant Associated Symptoms: weakness <Srinath Terry - Last Filed: 01/12/25 03:23> <Enio Parra - Last Filed: 01/22/25 03:48> - General Chief complaint: Neuro Symptoms/Deficit Stated complaint: Numbness Time Seen by Provider: 01/11/25 18:32 - History of Present Illness Initial comments: This is a 34-year-old female with history including iron deficient anemia presenting for extremity pain (03/21) and numbness starting last night. Patient states she began experiencing sudden onset numbness/tingling in her fingers which later progressed to her bilateral lower extremities and face before spreading across her entire body. Patient describes pain as constant and cramping/burning with associated tingling in face. Patient states the full body tingling/burning is new to her. Patient states she is also feeling more weak than usual. States she has been unable to walk due to weakness for the past month, requiring her mother for assistance in daily activities. States she receives Neurontin [address] Molina which do not seem to be helping. Patient also mentions some difficulty swallowing/regurgitation. States she has not urinated since yesterday due to weakness preventing inability to stand/ambulate. Denies fever, chills, neck stiffness, headache, blurred vision, dizziness, chest pain, dyspnea, dysarthria, aphasia abdominal pain, nausea, diarrhea, hematemesis, constipation. (Srinath Terry) - Related Data Home Medications Medication Instructions Recorded Confirmed Budesonide/Formoterol Fumarate 2 puff INHALATION RT-BID 07/12/24 01/12/25 [Symbicort 160-4.5 Mcg Inhaler] QUEtiapine [SEROquel] 100 mg PO HS 07/12/24 01/12/25 Tiotropium 2.5 Mcg/Puff [Spiriva 2 puff INHALATION RT-DAILY 07/12/24 01/12/25 Respimat 2.5 Mcg] traZODone HCL [Desyrel] 100 mg PO HS 07/12/24 01/12/25 Nicotine 21Mg/24Hr Patch [Habitrol] 1 patch TRANSDERM DAILY 09/07/24 01/12/25 Ferrous Sulfate [Iron (65 MG 325 mg PO DAILY 10/18/24 01/12/25 Elemental)] Propranolol [Inderal] 20 mg PO BID 10/18/24 01/12/25 HYDROcodone/APAP 5-325MG [[place] 1 tab PO BID PRN 11/13/24 01/12/25 5-325] Potassium Chloride ER [K-Dur 20] 20 meq PO Q2D 11/13/24 01/12/25 Gabapentin 300 mg PO TID 01/12/25 01/12/25 Nitrofurantoin Monohyd/M-Cryst 100 mg PO Q12HR 01/12/25 01/12/25 [Macrobid] Prochlorperazine [Compazine] 10 mg PO DAILY PRN 01/12/25 01/12/25 Sucralfate [Carafate] 1 gm PO ACHS 01/12/25 01/12/25 ondansetron HCL [Zofran] 8 mg PO Q12HR PRN 01/12/25 01/12/25 Previous Rx's Medication Instructions Recorded Pantoprazole Sodium [Protonix] 40 mg PO BID #60 tab 09/20/24 Acetaminophen Tab [Tylenol] 650 mg PO Q6HR PRN tab 01/15/25 Folic Acid 1 mg PO DAILY 90 Days #90 tab 01/15/25 Magnesium Oxide [Mag-Ox] 400 mg PO BID 90 Days #180 tab 01/15/25 Zinc Sulfate [Orazinc] 220 mg PO DAILY 90 Days #90 cap 01/15/25 Allergies Allergy/AdvReac Type Severity Reaction Status Date / Time latex Allergy Rash/Hives Verified 01/12/25 09:47 morphine AdvReac Itching Verified 01/12/25 09:47 Review of Systems ROS Other: All systems not noted in ROS Statement are negative. <Srinath Terry - Last Filed: 01/12/25 03:23> ROS Other: All systems not noted in ROS Statement are negative. <Enio Parra - Last Filed: 01/22/25 03:48> ROS Statement: Those systems with pertinent positive or pertinent negative responses have been documented in the HPI. Past Medical History Past Medical History: GERD/Reflux, Pulmonary Embolus (PE), Sleep Apnea/CPAP/BIPAP Additional Past Medical History / Comment(s): iron defiency anemia, pulmonary embolism 02/13/24 History of Any Multi-Drug Resistant Organisms: None Reported Past Surgical History: Bariatric Surgery, Section, Cholecystectomy, Tubal Ligation, Uterine Ablation Additional Past Surgical History / Comment(s): 2008 AND 2015 (c/s) and 2010 (cholecyst). 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 gastric bypass 06/11/24 Past Anesthesia/Blood Transfusion Reactions: No Reported Reaction Past Psychological History: Anxiety, Bipolar, Depression Smoking Status: Former smoker Past Alcohol Use History: None Reported Past Drug Use History: None Reported - Past Family History Mother Family Medical History: Asthma, COPD, Diabetes Mellitus, Hypertension Additional Family Medical History / Comment(s): depression, anxiety, sleep apnea, Father Family Medical History: Hypertension Additional Family Medical History / Comment(s): arthritis <Srinath Terry - Last Filed: 01/12/25 03:23> General Exam Limitations: no limitations General appearance: alert, in no apparent distress, other (Patient appears extremely weak, leaning to left side of bed on pillow. Patient states she is unable to stand/ambulate) Head exam: Present: atraumatic, normocephalic, normal inspection Eye exam: Present: normal appearance, PERRL, EOMI. Absent: scleral icterus, conjunctival injection, periorbital swelling ENT exam: Present: normal exam, mucous membranes moist Neck exam: Present: normal inspection. Absent: tenderness, meningismus, lymphadenopathy Respiratory exam: Present: normal lung sounds bilaterally. Absent: respiratory distress, wheezes, rales, rhonchi, stridor, accessory muscle use, decreased breath sounds, prolonged expiratory Cardiovascular Exam: Present: regular rate, normal rhythm, normal heart sounds. Absent: systolic murmur, diastolic murmur, rubs, gallop, clicks GI/Abdominal exam: Present: soft, normal bowel sounds. Absent: distended, tenderness, guarding, rebound, rigid Extremities exam: Present: tenderness (Patient notes tenderness in all extremities on palpation), normal capillary refill, other (Distal vascular and motor function intact in all extremities. Radial and posterior tibialis pulse bilaterally +2. Upper extremity abduction strength 4/5, german teacher strength 4/5, hip flexion 4/5, dorsi/plantarflexion 4/5). Absent: pedal edema, joint swelling, calf tenderness Back exam: Present: normal inspection Neurological exam: Present: alert, oriented X3, CN II-XII intact Psychiatric exam: Present: normal affect, normal mood Skin exam: Present: warm, dry, intact, normal color. Absent: rash <Srinath Terry - Last Filed: 01/12/25 03:23> Course Vital Signs 01/11/25 01/11/25 01/11/25 18:23 22:04 23:35 Temperature 98.8 F 98.3 F Pulse Rate 127 H 105 H 109 H Respiratory 19 17 Rate Blood Pressure 136/96 119/87 122/87 O2 Sat by Pulse 97 98 97 Oximetry 01/12/25 01/12/25 01/12/25 02:11 05:00 07:00 Temperature 98.3 F 97.9 F 98 F Pulse Rate 102 H 117 H 98 Respiratory 20 22 16 Rate Blood Pressure 122/85 125/86 120/82 O2 Sat by Pulse 98 100 98 Oximetry 01/12/25 01/12/25 12:00 13:22 Temperature 98 F 98 F Pulse Rate 98 90 Respiratory 16 16 Rate Blood Pressure 126/84 122/82 O2 Sat by Pulse 98 98 Oximetry Medical Decision Making - Lab Data Result diagrams: 01/11/25 19:35 01/11/25 19:35 <Srinath Terry - Last Filed: 01/12/25 03:23> - Lab Data Result diagrams: 01/13/25 08:06 01/13/25 08:06 <Enio Parra - Last Filed: 01/22/25 03:48> - Medical Decision Making Was pt. sent in by a medical professional or institution (, PA, [employer], urgent care, hospital, or long term...) When possible be specific @ -No Did you speak to anyone other than the patient for history (EMS, parent, family, police, friend...)? What history was obtained from this source @ -No Did you review nursing and triage notes (agree or disagree)? Why? @ -I reviewed and agree with nursing and triage notes Were old charts reviewed (outside hosp., previous admission, EMS record, old EKG, old radiological studies, urgent care reports/EKG's, long term records)? Report findings @ -ER note from 09/28/2024 when patient was experiencing similar weakness, was reviewed. Differential Diagnosis (chest pain, altered mental status, abdominal pain women, abdominal pain men, vaginal bleeding, weakness, fever, dyspnea, syncope, headache, dizziness, GI bleed, back pain, seizure, CVA, palpatations, mental health, musculoskeletal)? @ -Differential Weakness: Hypoglycemia, shock, sepsis, hyponatremia, anemia, infection, GA, ETOH, adverse medicine reaction, overdose, stroke, this is not meant to be an all-inclusive list. EKG interpreted by me (3pts min.). @ -Sinus tachycardia without ST deviation or T wave inversion. Ventricular rate 111 bpm, DAVID 140 ms, QRS 85 ms, QTc 415 ms. X-rays interpreted by me (1pt min.). @ -CXR shows no acute cardiopulmonary process CT interpreted by me (1pt min.). @ -None done U/S interpreted by me (1pt. min.). @ -None done What testing was considered but not performed or refused? (CT, X-rays, U/S, labs)? Why? @ -None What meds were considered but not given or refused? Why? @ -None Did you discuss the management of the patient with other professionals (professionals i.e. , PA, [employer], lab, RT, psych nurse, medical social worker, environmental protection forester, teacher, conservation science officer, pillowcase sewer)? Give summary @ -No Was smoking cessation discussed for >3mins.? @ -No Was critical care preformed (if so, how long)? @ -No Were there social determinants of health that impacted care today? How? (Homelessness, low income, unemployed, alcoholism, drug addiction, transportation, low edu. Level, literacy, decrease access to med. care, alf, rehab)? @ -No Was there de-escalation of care discussed even if they declined (Discuss DNR or withdrawal of care, Hospice)? DNR status @ -No What co-morbidities impacted this encounter? (DM, HTN, Smoking, COPD, CAD, Cancer, CVA, ARF, Chemo, Hep., AIDS, mental health diagnosis, sleep apnea, morbid obesity)? @ -None Was patient admitted / discharged? Hospital course, mention meds given and route, prescriptions, significant lab abnormalities, going to OR and other pertinent info. @ -Lab work shows anemia with hemoglobin 11.1 which is WNL for patient. Leukocytosis 14.9 with left shift. Hypokalemia 3.0. LFT and kidney function normal. UA shows ketonuria with negative urine hCG. CXR shows no acute cardiopulmonary process. Patient initially provided IV Toradol and p.o. gabapentin and Tylenol. Patient denies change in pain following this treatment. P.o. potassium chloride provided for hypokalemia. Patient provided IV normal saline and Dilaudid for ongoing pain with some improvement in pain noted by patient. Patient states she is unable to stand and was unable to provide urine sample initially, stating she had not urinated for the past 24 hours. Straight cath utilized to obtain urine with large amount of urine drained from bladder. Due to inability to ambulate and severe weakness, patient admitted for further evaluation with neurology consult after speaking to Dr. Molina. Discussed patient with Dr. Parra. Undiagnosed new problem with uncertain prognosis? @ -Neuralgia, severe weakness Drug Therapy requiring intensive monitoring for toxicity (Heparin, Nitro, Insulin, Cardizem)? @ -No Were any procedures done? @ -No Diagnosis/symptom? @ -Neuralgia, severe weakness Acute, or Chronic, or Acute on Chronic? @ -Acute on chronic Uncomplicated (without systemic symptoms) or Complicated (systemic symptoms)? @ -Complicated Side effects of treatment? @ -No Exacerbation, Progression, or Severe Exacerbation? @ -Severe exacerbation Poses a threat to life or bodily function? How? (Chest pain, USA, GA, pneumonia, PE, COPD, DKA, ARF, appy, cholecystitis, CVA, Diverticulitis, Homicidal, Suicidal, threat to staff... and all critical care pts) @ -Severe weakness, preventing daily activities (Srinath Terry) - Lab Data Lab Results 01/11/25 01/11/25 01/11/25 Range/Units 19:35 19:35 19:35 WBC 14.92 H (4.50-10.00) 10*3/uL RBC 3.67 L (4.10-5.20) 10*6/uL Hgb 11.1 L (12.0-15.0) g/dL Hct 31.8 L (37.2-46.3) % MCV 86.6 (80.0-97.0) fL MCH 30.2 (27.0-32.0) pg MCHC 34.9 (32.0-37.0) g/dL Plt Count 397 (140-440) 10*3/uL MPV 10.2 (9.5-12.2) fL Immature Gran % (Auto) 0.3 % Neutrophils % 76.5 % Lymphocytes % 15.5 % Monocytes % 7.3 % Eosinophils % 0.3 % Basophils % 0.1 % Immature Gran # 0.05 H (0.00-0.04) 10*3/uL Neutrophils # 11.40 H (1.80-7.70) 10*3/uL Lymphocytes # 2.32 (0.90-5.00) 10*3/uL Monocytes # 1.09 H (0.20-1.00) 10*3/uL Eosinophils # 0.04 (0.04-0.35) 10*3/uL Basophils # 0.02 (0.00-0.10) 10*3/uL Sodium 140 (137-145) mmol/L Potassium 3.0 L (3.5-5.1) mmol/L Chloride 100 (98-107) mmol/L Carbon Dioxide 29 (22-30) mmol/L Anion Gap 11 mmol/L BUN 5 L (7-17) mg/dL Creatinine 0.32 L (0.52-1.04) mg/dL Est GFR (CKD-EPI)AfAm >90 (>60 ml/min/1.73 sqM) Est GFR (CKD-EPI)NonAf >90 (>60 ml/min/1.73 sqM) Glucose 80 (74-99) mg/dL POC Glucose (mg/dL) (70-110) mg/dL POC Glu Detective Private Eye ID Calcium 9.1 (8.4-10.2) mg/dL Phosphorus 3.7 (2.5-4.5) mg/dL Magnesium 1.6 (1.6-2.3) mg/dL Total Bilirubin 0.7 (0.2-1.3) mg/dL AST 28 (14-36) U/L ALT 27 (4-34) U/L Alkaline Phosphatase 71 (38-126) U/L Total Creatine Kinase (30-223) u/L CK-MM (CK-3) (96.7-100.0) % CK-MB (CK-2) (0.0-3.3) % CK-BB (CK-1) (0.0) % Total Protein 5.3 L (6.3-8.2) g/dL Albumin 2.7 L (3.5-5.0) g/dL Urine Color Urine Appearance (Clear) Urine pH (5.0-8.0) Ur Specific [place] (1.001-1.035) Urine Protein (Negative) Urine Glucose (UA) (Negative) Urine Ketones (Negative) Urine Blood (Negative) Urine Nitrite (Negative) Urine Bilirubin (Negative) Urine Urobilinogen (<2.0) mg/dL Ur Leukocyte Esterase (Negative) Urine HCG, Qual (Not Detectd) 01/11/25 01/11/25 01/11/25 Range/Units 19:35 20:50 22:29 WBC (4.50-10.00) 10*3/uL RBC (4.10-5.20) 10*6/uL Hgb (12.0-15.0) g/dL Hct (37.2-46.3) % MCV (80.0-97.0) fL MCH (27.0-32.0) pg MCHC (32.0-37.0) g/dL Plt Count (140-440) 10*3/uL MPV (9.5-12.2) fL Immature Gran % (Auto) % Neutrophils % % Lymphocytes % % Monocytes % % Eosinophils % % Basophils % % Immature Gran # (0.00-0.04) 10*3/uL Neutrophils # (1.80-7.70) 10*3/uL Lymphocytes # (0.90-5.00) 10*3/uL Monocytes # (0.20-1.00) 10*3/uL Eosinophils # (0.04-0.35) 10*3/uL Basophils # (0.00-0.10) 10*3/uL Sodium (137-145) mmol/L Potassium (3.5-5.1) mmol/L Chloride (98-107) mmol/L Carbon Dioxide (22-30) mmol/L Anion Gap mmol/L BUN (7-17) mg/dL Creatinine (0.52-1.04) mg/dL Est GFR (CKD-EPI)AfAm (>60 ml/min/1.73 sqM) Est GFR (CKD-EPI)NonAf (>60 ml/min/1.73 sqM) Glucose (74-99) mg/dL POC Glucose (mg/dL) 84 (70-110) mg/dL POC Glu Detective Private Eye ID Calcium (8.4-10.2) mg/dL Phosphorus (2.5-4.5) mg/dL Magnesium (1.6-2.3) mg/dL Total Bilirubin (0.2-1.3) mg/dL AST (14-36) U/L ALT (4-34) U/L Alkaline Phosphatase (38-126) U/L Total Creatine Kinase 24 L (30-223) u/L CK-MM (CK-3) 100.0 (96.7-100.0) % CK-MB (CK-2) 0.0 (0.0-3.3) % CK-BB (CK-1) 0.0 (0.0) % Total Protein (6.3-8.2) g/dL Albumin (3.5-5.0) g/dL Urine Color Light Red Urine Appearance Clear (Clear) Urine pH 6.5 (5.0-8.0) Ur Specific [place] 1.015 (1.001-1.035) Urine Protein Negative (Negative) Urine Glucose (UA) Negative (Negative) Urine Ketones 3+ H (Negative) Urine Blood Negative (Negative) Urine Nitrite Negative (Negative) Urine Bilirubin Negative (Negative) Urine Urobilinogen 2.0 (<2.0) mg/dL Ur Leukocyte Esterase Negative (Negative) Urine HCG, Qual (Not Detectd) 01/11/25 Range/Units 22:29 WBC (4.50-10.00) 10*3/uL RBC (4.10-5.20) 10*6/uL Hgb (12.0-15.0) g/dL Hct (37.2-46.3) % MCV (80.0-97.0) fL MCH (27.0-32.0) pg MCHC (32.0-37.0) g/dL Plt Count (140-440) 10*3/uL MPV (9.5-12.2) fL Immature Gran % (Auto) % Neutrophils % % Lymphocytes % % Monocytes % % Eosinophils % % Basophils % % Immature Gran # (0.00-0.04) 10*3/uL Neutrophils # (1.80-7.70) 10*3/uL Lymphocytes # (0.90-5.00) 10*3/uL Monocytes # (0.20-1.00) 10*3/uL Eosinophils # (0.04-0.35) 10*3/uL Basophils # (0.00-0.10) 10*3/uL Sodium (137-145) mmol/L Potassium (3.5-5.1) mmol/L Chloride (98-107) mmol/L Carbon Dioxide (22-30) mmol/L Anion Gap mmol/L BUN (7-17) mg/dL Creatinine (0.52-1.04) mg/dL Est GFR (CKD-EPI)AfAm (>60 ml/min/1.73 sqM) Est GFR (CKD-EPI)NonAf (>60 ml/min/1.73 sqM) Glucose (74-99) mg/dL POC Glucose (mg/dL) (70-110) mg/dL POC Glu Detective Private Eye ID Calcium (8.4-10.2) mg/dL Phosphorus (2.5-4.5) mg/dL Magnesium (1.6-2.3) mg/dL Total Bilirubin (0.2-1.3) mg/dL AST (14-36) U/L ALT (4-34) U/L Alkaline Phosphatase (38-126) U/L Total Creatine Kinase (30-223) u/L CK-MM (CK-3) (96.7-100.0) % CK-MB (CK-2) (0.0-3.3) % CK-BB (CK-1) (0.0) % Total Protein (6.3-8.2) g/dL Albumin (3.5-5.0) g/dL Urine Color Urine Appearance (Clear) Urine pH (5.0-8.0) Ur Specific [place] (1.001-1.035) Urine Protein (Negative) Urine Glucose (UA) (Negative) Urine Ketones (Negative) Urine Blood (Negative) Urine Nitrite (Negative) Urine Bilirubin (Negative) Urine Urobilinogen (<2.0) mg/dL Ur Leukocyte Esterase (Negative) Urine HCG, Qual Not Detected (Not Detectd) Disposition Is patient prescribed a controlled substance at d/c from ED?: No Time of Disposition: 22:13 Decision Date: 01/11/25 Decision Time: 22:13 <Srinath Terry - Last Filed: 01/12/25 03:23> <Enio Parra - Last Filed: 01/22/25 03:48> Clinical Impression: Neuralgia, Weakness, Unable to ambulate Disposition: ADMITTED IP TO THIS HOSP Condition: Fair
[2025-01-11 19:45] LABS: Basophils # (A) 0.02 10*3/uL (0.00-0.10); Basophils % (A) 0.1 %; Eosinophils # (A) 0.04 10*3/uL (0.04-0.35); Eosinophils % (A) 0.3 %; HCT 31.8 % (37.2-46.3); HGB 11.1 g/dL (12.0-15.0); Lymphocytes # (A) 2.32 10*3/uL (0.90-5.00); Lymphocytes % (A) 15.5 %; MCH 30.2 pg (27.0-32.0); MCHC 34.9 g/dL (32.0-37.0); MCV 86.6 fL (80.0-97.0); Mean Platelet Volume 10.2 fL (9.5-12.2); Monocytes # (A) 1.09 10*3/uL (0.20-1.00); Monocytes % (A) 7.3 %; Neutrophils % (A) 76.5 %; Platelet Count 397 10*3/uL (140-440); RBC 3.67 10*6/uL (4.10-5.20); RDW 20.1 % (11.5-14.5); WBC 14.92 10*3/uL (4.50-10.00)
[2025-01-11 19:55] LABS: ALT 27 U/L (4-34); AST 28 U/L (14-36); African American GFR (CKD) >90 (>60 ml/min/1.73 sqM); Albumin 2.7 g/dL (3.5-5.0); Alkaline Phosphatase 71 U/L (38-126); Anion Gap 11 mmol/L; Blood Urea Nitrogen 5 mg/dL (7-17); Calcium 9.1 mg/dL (8.4-10.2); Carbon Dioxide 29 mmol/L (22-30); Chloride 100 mmol/L (98-107); Glucose 80 mg/dL (74-99); Magnesium 1.6 mg/dL (1.6-2.3); Non-African American GFR(CKD) >90 (>60 ml/min/1.73 sqM); Sodium 140 mmol/L (137-145); Total Bilirubin 0.7 mg/dL (0.2-1.3); Total Protein 5.3 g/dL (6.3-8.2)
[2025-01-11] MEDS: GABAPENTIN 300 MG CAP PO STA (20:21)
[2025-01-11] MEDS: ACETAMINOPHEN TAB 325 MG TAB PO STA (20:21)
[2025-01-11] MEDS: KETOROLAC 15 MG/ML 1 ML VIAL IVP STA (20:22)
--- NOTE | 2025-01-11 20:48 | XR ---
EXAMINATION TYPE: XR chest 2V DATE OF EXAM: 01/11/2025 8:32 PM COMPARISON: Chest radiographs from 07/26/2024. CLINICAL INDICATION: Female, 34 years old with history of Weakness; TECHNIQUE: XR chest 2V Frontal and lateral views of the chest. FINDINGS: Lungs/Pleura: There is no evidence of pleural effusion, focal consolidation, or pneumothorax. Pulmonary vascularity: Unremarkable. Heart/mediastinum: Cardiomediastinal silhouette is unremarkable. Musculoskeletal: No acute osseous pathology. Other findings: None IMPRESSION: No acute cardiopulmonary disease/process. [facility], , 01/11/2025 8:46 PM
[2025-01-11 20:51] LABS: Glucose,Whole Blood 84 mg/dL (70-110)
[2025-01-11] MEDS: HYDROmorphone 0.5 MG/0.5 ML SYRINGE IVP STA (22:08)
[2025-01-11] MEDS: POTASSIUM CHLORIDE ER 20 MEQ TAB.ER PO STA (22:17)
[2025-01-11 22:43] LABS: Appearance,Urine Clear (Clear); Bilirubin,Urine Negative (Negative); Blood,Urine Negative (Negative); Color,Urine Light Red; Glucose,Urine (UA) Negative (Negative); Ketones,Urine 3+ (Negative); Leukocyte Esterase,Urine Negative (Negative); Nitrite,Urine Negative (Negative); PH, Urine 6.5 (5.0-8.0); Protein,Urine Negative (Negative); Specific Gravity,Urine 1.015 (1.001-1.035)
[2025-01-11] MEDS ORDERED: ACETAMINOPHEN TAB 325 MG TAB PO PRN (23:26)
[2025-01-11] MEDS ORDERED: NALOXONE 0.4 MG/ML 1 ML VIAL IV PRN (23:26)
[2025-01-11] MEDS ORDERED: LORazepam 1 MG TAB PO PRN (23:29)
[2025-01-11] MEDS: SODIUM CHLORIDE 0.9% 1,000 ML IV STA (23:38)
[2025-01-11] MEDS: HYDROmorphone 1 MG/ML 1 ML SYRINGE IVP STA (23:39)
[2025-01-11] MEDS: traMADol 50 MG STARTER PACK 3 TAB BTL PO STA (23:46)
[2025-01-11] MEDS: POTASSIUM CHLORIDE ER 20 MEQ TAB.ER PO SCH (23:47)
[2025-01-12] MEDS: SODIUM CHLORIDE 0.9% 1,000 ML IV SCH (00:57)
[2025-01-12] MEDS: KETOROLAC 15 MG/ML 1 ML VIAL IVP PRN (05:18)
[2025-01-12] MEDS: HYDROmorphone 0.5 MG/0.5 ML SYRINGE IVP PRN (06:25)
[2025-01-12] MEDS: TIOTROPIUM 2.5 MCG INHALER INHALATION SCH (08:30)
[2025-01-12] MEDS: SYMBICORT 160-4.5 MCG INHALER INHALATION SCH (08:31)
[2025-01-12] MEDS: PROPRANOLOL 20 MG TAB PO SCH (09:01)
[2025-01-12] MEDS: FERROUS SULFATE 325 MG TAB PO SCH (09:01)
[2025-01-12] MEDS: PANTOPRAZOLE 40 MG TABLET PO SCH (09:01)
[2025-01-12] MEDS ORDERED: ONDANSETRON ODT 8 MG TAB.RAPDIS PO PRN (10:20)
[2025-01-12] MEDS: SUCRALFATE 1 GM TAB PO SCH (12:26)
[2025-01-12] MEDS: GABAPENTIN 300 MG CAP PO SCH (15:30)
[2025-01-12] MEDS: ONDANSETRON 4 MG/2 ML VIAL IVP PRN (15:31)
[2025-01-12] MEDS: HYDROmorphone 1 MG/ML 1 ML SYRINGE IVP PRN (20:29)
[2025-01-12] MEDS: traZODone HCL 100 MG TAB PO SCH (20:32)
[2025-01-12] MEDS: QUEtiapine 100 MG TAB PO SCH (20:32)
[2025-01-13 00:11] LABS: C Reactive Protein 2.3 mg/dL (<1.0)
[2025-01-13] MEDS: HYDROcodone/APAP 5-325MG 1 EACH TAB PO PRN (00:35)
[2025-01-13] MEDS: methylPREDNISolone SOD SUCCI 40 MG/ML 1 ML VIAL IV SCH (00:37)
[2025-01-13] MEDS: NICOTINE 21MG/24HR PATCH TRANSDERM SCH (08:25)
[2025-01-13 08:38] LABS: Basophils # (A) 0.02 10*3/uL (0.00-0.10); Basophils % (A) 0.3 %; Eosinophils # (A) 0.19 10*3/uL (0.04-0.35); Eosinophils % (A) 2.9 %; HCT 27.5 % (37.2-46.3); Lymphocytes % (A) 30.2 %; MCH 30.3 pg (27.0-32.0); MCHC 33.8 g/dL (32.0-37.0); MCV 89.6 fL (80.0-97.0); Mean Platelet Volume 10.4 fL (9.5-12.2); Monocytes # (A) 0.76 10*3/uL (0.20-1.00); Monocytes % (A) 11.5 %; Neutrophils # (A) 3.63 10*3/uL (1.80-7.70); Neutrophils % (A) 54.8 %; Platelet Count 354 10*3/uL (140-440); RBC 3.07 10*6/uL (4.10-5.20); RDW 20.6 % (11.5-14.5); WBC 6.62 10*3/uL (4.50-10.00)
[2025-01-13 08:39] LABS: HGB 9.3 g/dL (12.0-15.0)
[2025-01-13] MEDS ORDERED: Magnesium Replacement Protocol 1 EACH MISC MISCELLANE PRN (10:02)
[2025-01-13] MEDS: MAGNESIUM SULFATE-D5W PMX 1 GM in DEXTROSE/WATER 1 100ML.BAG IVPB SCH (11:50)
[2025-01-13] MEDS: FOLIC ACID 1 MG TAB PO SCH (13:02)
[2025-01-13] MEDS: MAGNESIUM OXIDE 400 MG TAB PO SCH (13:02)
[2025-01-13 14:23] LABS: ALT 23 U/L (8-44); AST 20 U/L (13-35); Albumin 2.3 g/dL (3.8-4.9); Albumin/Globulin Ratio 1.28 Ratio (1.60-3.17); Alkaline Phosphatase 53 U/L (41-126); Calcium 7.9 mg/dL (8.7-10.3); Carbon Dioxide 24.7 mmol/L (21.6-31.8); Chloride 107 mmol/L (96-109); Globulin 1.8 g/dL (1.6-3.3); Glucose 74 mg/dL (70-110); Potassium 3.6 mmol/L (3.5-5.5); Sodium 143 mmol/L (135-145); Total Bilirubin 0.3 mg/dL (0.3-1.2); Total Protein 4.1 g/dL (6.2-8.2)
--- NOTE | 2025-01-14 00:41 | P.CNNES ---
History of Present Illness Consult date: 01/13/25 Requesting physician: Srinath Terry Reason for Consult: Severe weakness, inability to ambulate, diffuse neuralgia with paresthesia History of Present Illness: Patient is a 34-year-old female with history of gastric bypass surgery for weight loss, malnutrition, came to the hospital by ambulance on 01/11/2025 at 6:19 PM worsening of numbness and tingling. Patient states that she had undergone sleeve surgery on 12/20/2023, and then underwent for bypass surgery on 06/11/2024. She has lost over 100 pounds, by the end of August 2024, as she used to weigh 288 pounds, and at that time was down to 173 pounds. She also has complications from the surgery, not able to eat anything with a lot of nausea and vomiting. Patient now weighs 124 pounds. She has lost 50 pounds in the last 4 months. Patient says that she always have pain and numbness in the feet for quite a while. However on , 01/10/2025 she developed numbness and tingling in the fingers and then rapidly extended to the arms and then the legs and then face and then the whole body. She can't move her legs, can't walk and feels severely weak. Now she has pain in the whole body and it hurts. Patient states that the weight loss is happening by herself. She is eating as much as she can. Patient denies diabetes, no alcohol use or hypertension. She has smoked half pack per day for 18 years, cut back to 2 cigarettes/day since February 2024. Vital signs on arrival blood pressure 136/96, pulse rate 127, temperature 98.8. Blood test shows WBC 14.92, hemoglobin 11.1, platelets 397. Sodium is normal potassium 3.0, renal functions, hepatic panel is normal. B12 1354, TSH normal cortisol normal. UA is negative. Patient has been seen by Dr. Sung on 02/14/2024 for metabolic encephalopathy. Patient has been seen by neurology service in August 2024 for subacute onset of peripheral neuropathy, likely due to nutritional/vitamin deficiency. Patient has history of gastric bypass surgery, folate deficiency, thiamine deficiency. Review of Systems All pertinent positive and negative review of systems patient the HPI, otherwise unremarkable. Past Medical History Past Medical History: GERD/Reflux, Pulmonary Embolus (PE), Sleep Apnea/CPAP/BIPAP Additional Past Medical History / Comment(s): iron defiency anemia, pulmonary embolism 02/13/24 History of Any Multi-Drug Resistant Organisms: None Reported Past Surgical History: Bariatric Surgery, Section, Cholecystectomy, Tubal Ligation, Uterine Ablation Additional Past Surgical History / Comment(s): 2008 AND 2015 (c/s) and 2010 (cholecyst). 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 gastric bypass 06/11/24 Past Anesthesia/Blood Transfusion Reactions: No Reported Reaction Past Psychological History: Anxiety, Bipolar, Depression Additional Psychological History / Comment(s): Pt on oral medications Smoking Status: Current some day smoker Past Alcohol Use History: None Reported Additional Past Alcohol Use History / Comment(s): Pt smokes a couple cigarrettes a day Past Drug Use History: None Reported - Past Family History Mother Family Medical History: Asthma, COPD, Diabetes Mellitus, Hypertension Additional Family Medical History / Comment(s): depression, anxiety, sleep apnea, Father Family Medical History: Hypertension Additional Family Medical History / Comment(s): arthritis Medications and Allergies Home Medications Medication Instructions Recorded Confirmed Type Budesonide/Formoterol Fumarate 2 puff INHALATION RT-BID 07/12/24 01/12/25 History [Symbicort 160-4.5 Mcg Inhaler] QUEtiapine [SEROquel] 100 mg PO HS 07/12/24 01/12/25 History Tiotropium 2.5 Mcg/Puff [Spiriva 2 puff INHALATION RT-DAILY 07/12/24 01/12/25 History Respimat 2.5 Mcg] traZODone HCL [Desyrel] 100 mg PO HS 07/12/24 01/12/25 History Nicotine 21Mg/24Hr Patch [Habitrol] 1 patch TRANSDERM DAILY 09/07/24 01/12/25 History Pantoprazole Sodium [Protonix] 40 mg PO BID #60 tab 09/20/24 01/12/25 Rx Ferrous Sulfate [Iron (65 MG 325 mg PO DAILY 10/18/24 01/12/25 History Elemental)] Propranolol [Inderal] 20 mg PO BID 10/18/24 01/12/25 History HYDROcodone/APAP 5-325MG [[place] 1 tab PO BID PRN 11/13/24 01/12/25 History 5-325] Potassium Chloride ER [K-Dur 20] 20 meq PO Q2D 11/13/24 01/12/25 History Gabapentin 300 mg PO TID 01/12/25 01/12/25 History Nitrofurantoin Monohyd/M-Cryst 100 mg PO Q12HR 01/12/25 01/12/25 History [Macrobid] Prochlorperazine [Compazine] 10 mg PO DAILY PRN 01/12/25 01/12/25 History Sucralfate [Carafate] 1 gm PO ACHS 01/12/25 01/12/25 History ondansetron HCL [Zofran] 8 mg PO Q12HR PRN 01/12/25 01/12/25 History Allergies Allergy/AdvReac Type Severity Reaction Status Date / Time latex Allergy Rash/Hives Verified 01/12/25 09:47 morphine AdvReac Itching Verified 01/12/25 09:47 Physical Examination - Vital Signs Vital Signs: Vital Signs Temp Pulse Pulse Resp BP BP Pulse Ox 01/13/25 07:00 97.8 F 98 14 120/85 98 01/13/25 00:20 98.1 F 94 18 121/84 97 01/12/25 18:55 98 F 95 16 128/89 99 01/12/25 14:40 98.4 F 92 16 158/100 99 01/12/25 13:22 98 F 90 16 122/82 98 Intake and Output 01/12/25 01/13/25 01/13/25 22:59 06:59 14:59 Intake Total 118 Output Total 450 Balance 118 -450 Intake: Oral 118 Output: Urine 450 Straight 450 Other: Voiding Method External Catheter External Catheter Toilet Diaper # Voids 0 0 # Bowel Movements 0 Patient is a young Afro-[place] female, appears somewhat listless, depressed, but in no acute distress. Patient is alert awake oriented to time place and person. Speech and language functions are normal. Patient can name and repeat very well. No aphasia or dysarthria. Attention, concentration and fund of knowledge is adequate. She speaks with very low volume. On cranial nerve examination, pupils are equal, round and reacting to light, visual sutton are full on confrontation, with no neglect on double simultaneous stimulation. Extraocular muscles are intact with no nystagmus. Face is symmetric, tongue protrudes to the midline. Palatal elevation and sensation normal, hearing and shoulder shrug normal, facial sensation normal. On muscle strength testing, there is no pronator drift and the strength is symmetrically decreased, deltoids 4, triceps 4 4-, biceps 4 4, machine puller and laster 4, hip flexion to, ankle dorsiflexion 5, toe extension 4+5-. Deep tendon reflexes are completely absent in the arms and legs. Sensory to touch is decreased from fingertips up to mid forearms. In the lower limbs it is decreased on toes all the way up to the T4 level. Cerebellar function showed mild ataxia for mrdnee-tq-hblc testing. No dysdiadochokinesia. Patient cannot perform blwn-as-icno testing because of weakness. Tone and bulk of muscles normal. Gait deferred.. On general examination, there is no carotid bruit or murmur, S1-S2 audible. Chest is clear on consultation. Abdomen is soft nontender. No organomegaly, bowel sounds present. Peripheral pulses are present. No peripheral edema. Results - Laboratory Findings CBC and BMP: 01/13/25 08:06 01/13/25 08:06 Abnormal Lab Findings: Abnormal Labs 01/11/25 01/11/25 01/11/25 19:35 19:35 22:29 WBC 14.92 H RBC 3.67 L Hgb 11.1 L Hct 31.8 L RDW Immature Gran # 0.05 H Neutrophils # 11.40 H Monocytes # 1.09 H Potassium 3.0 L BUN 5 L Creatinine 0.32 L C-Reactive Protein Total Protein 5.3 L Albumin 2.7 L Vitamin B12 Folate Urine Ketones 3+ H 01/12/25 01/12/25 01/12/25 10:59 10:59 23:11 WBC RBC Hgb Hct RDW Immature Gran # Neutrophils # Monocytes # Potassium BUN Creatinine C-Reactive Protein 2.3 H Total Protein Albumin Vitamin B12 1354.0 H Folate <2.00 L Urine Ketones 01/13/25 08:06 WBC RBC 3.07 L Hgb 9.3 L D Hct 27.5 L RDW 20.6 H Immature Gran # Neutrophils # Monocytes # Potassium BUN Creatinine C-Reactive Protein Total Protein Albumin Vitamin B12 Folate Urine Ketones Assessment and Plan Assessment: * 34-year-old female with history of peripheral neuropathy related to nutritional/vitamin deficiency, has presented with more acute severe peripheral neuropathy in the arms and legs. Patient has further lost 50 pounds in the last 4 months, which is likely contributing to nutritional/vitamin deficiency. * History of gastric bypass surgery. Patient has lost 150 pounds since surgery. * Depression * Folate deficiency * Thiamine deficienc Plan: * Agree with checking all the vitamins and minerals as per order sheet. * Folic acid is < 2.0, B12 1354. TSH is normal. Patient started on folic acid 1 mg daily. * Await further blood testing results. * Recommend psychiatry consultation to rule out anorexia nervosa. Uncertain if further weight loss is intentional or psychogenic. * Patient has stopped taking all vitamins that was recommended on the previous admission. * Dr. Jesus Sung Will resume neurology service from the morning. * Thank you for the consult.
[2025-01-14] MEDS: ZINC SULFATE 220 MG CAP PO SCH (20:33)
[2025-01-15 01:04] VITALS: RESP 16
[2025-01-15 04:31] LABS: Methylmalonic Acid 0.11 umol/L (<0.40)
[2025-01-15 06:33] LABS: Vitamin A 13 ug/dL (38-106); Vitamin E (Alpha Tocopherol) 1039 ug/dL (500-1800)
[2025-01-15 08:00] VITALS: BP 114/75; PULSE 84; TEMP 98.1
[2025-01-15 11:56] VITALS: BMI 22.6
--- NOTE | 2025-01-16 16:36 | HP ---
HISTORY AND PHYSICAL HISTORY OF PRESENT ILLNESS: Geneva Chavez is a 34-year-old female, came to the hospital with severe weakness in 4 extremities, unable to open and close her extremities with severe numbness and pain and swelling. I see she has a history of adrenal insufficiency. I do not see that she is having any Cortef at home at this time. Recheck her cortisol level. Give some steroids and pain control. vitamin deficiencies. She has a history of B1 deficiency and folate deficiency. She states her nausea and vomiting had stopped from her gastric surgery after multiple repairs. MEDICATIONS: Reviewed. REVIEW OF SYSTEMS: 14-point review of systems otherwise negative. PHYSICAL EXAMINATION: VITAL SIGNS: Blood pressure 126/84, 98 on room air, temperature 98, pulse 90 to 98, respiratory rate 16 to 18. CARDIOVASCULAR: S1, S2. LUNGS: Clear. GI: Soft she is able to bend 4 extremities about 4/5 strength. Generalized weakness, unclear if it is adrenal insufficiency or vitamin deficiency most likely. Check all vitamin levels. Start Solu-Medrol. Check cortisol level, obtain pain consult. MMODL / IJN: [id number] /
--- NOTE | 2025-01-16 16:36 | PN ---
PROGRESS NOTE SUBJECTIVE: Oxygen level is 98 on room air. Blood pressure 116/81, temp 97.9, pulse 86, respiratory rate 14 to 16. Discussed case with the [facility] physician assistant casino shift manager. Folic acid deficiency is most likely the cause of her weakness, pain and numbness, possibly order some methylphenidate. Wait for dietary recommendations. Neurology saw the patient. Check vitamin B12. B12 was high. Folic acid less than 2.0, folic acid 1 mg daily, possibly order some methylfolate. Psychiatry recommendations possibly for anorexia. PROGNOSIS: Guarded. MMODL / IJN: [id number] /
--- NOTE | 2025-01-16 16:36 | PN ---
PROGRESS NOTE A 34-year-old white female, came in with severe muscle weakness, fatigue. Waiting for consultations. White count was a little bit elevated, but now is down to normal. Hemoglobin is 9.3. Folic acid level is less than 2. B12 is high. Suspect she just had cortisol levels good. I suspect she has folic acid deficiency. Waiting for other consults to recommend any further workup. IV steroids for muscle aches and fatigue and weakness, numbness throughout her body, possibly due to low magnesium or low folate. Procalcitonin is negative. Remains anemic. Hemoglobin is 9.3. Vital signs appear to be stable. Possible discharge home. Folic acid and magnesium pills. Await clearance from specialists. MMODL / IJN: [id number] /
== END 2025-01-15 14:57 | disposition home health service (06) ==
LOC: EC 18:19 → 6NMEDSUR 23:58
PROVIDERS: ADMIT Family Medicine; ATTEND Family Medicine
DX: G62.9 Polyneuropathy, unspecified (principal); E87.6 Hypokalemia; E63.9 Nutritional deficiency, unspecified; E53.8 Deficiency of other specified B group vitamins; E51.9 Thiamine deficiency, unspecified; E27.40 Unspecified adrenocortical insufficiency; D50.9 Iron deficiency anemia, unspecified; Z98.84 Bariatric surgery status; D72.829 Elevated white blood cell count, unspecified; D64.9 Anemia, unspecified; F31.9 Bipolar disorder, unspecified; R82.4 Acetonuria; R13.10 Dysphagia, unspecified; F17.210 Nicotine dependence, cigarettes, uncomplicated; Z79.51 Long term (current) use of inhaled steroids; Z79.899 Other long term (current) drug therapy; Z88.5 Allergy status to narcotic agent; Z91.040 Latex allergy status; Z86.39 Personal history of other endocrine, nutritional and metabolic disease
CPT/HCPCS: 96376 ×6; 96361 ×4; 96365; 96366; 96375 ×3; 99285; 36415; 94640 ×6; 93005; 97161; 97165; 84207; 83921; 82552; 82652; 84425; 80053 ×2; 85652; 84443; 82533; 82607; 84446; 82525; 82746; 83735 ×2; 84100; 84590; 84484; 84630; 85025 ×2; 86140; 81003; 81025; 82550; 84145; 71046; G0378 ×4; S4990 ×3; J2405 ×2; J1171 ×7; J3475; J1885 ×2; J2919 ×3

== ENCOUNTER 2025-01-23 23:32 | Observation (INO) | payer OTHER ==
--- NOTE | 2025-01-24 00:19 | ED ---
General Adult HPI - General Chief complaint: Neuro Symptoms/Deficit Stated complaint: weakness Time Seen by Provider: 01/23/25 23:32 Source: patient, EMS, RN notes reviewed, old records reviewed Mode of arrival: EMS Limitations: physical limitation - History of Present Illness Initial comments: 34-year-old female presents for evaluation of weakness and generalized numbness and tingling. Patient has been diagnosed with vitamin deficiency but is unable to take her medication secondary to difficulty swallowing. She has had a very poor intake. This has been an ongoing issue status post gastric bypass. She was admitted with similar complaint 1 week ago. She continues to not be able to eat or take the prescribed medication. - Related Data Home Medications Medication Instructions Recorded Confirmed Budesonide/Formoterol Fumarate 2 puff INHALATION RT-BID 07/12/24 01/12/25 [Symbicort 160-4.5 Mcg Inhaler] QUEtiapine [SEROquel] 100 mg PO HS 07/12/24 01/12/25 Tiotropium 2.5 Mcg/Puff [Spiriva 2 puff INHALATION RT-DAILY 07/12/24 01/12/25 Respimat 2.5 Mcg] traZODone HCL [Desyrel] 100 mg PO HS 07/12/24 01/12/25 Nicotine 21Mg/24Hr Patch [Habitrol] 1 patch TRANSDERM DAILY 09/07/24 01/12/25 Ferrous Sulfate [Iron (65 MG 325 mg PO DAILY 10/18/24 01/12/25 Elemental)] Propranolol [Inderal] 20 mg PO BID 10/18/24 01/12/25 HYDROcodone/APAP 5-325MG [[place] 1 tab PO BID PRN 11/13/24 01/12/25 5-325] Potassium Chloride ER [K-Dur 20] 20 meq PO Q2D 11/13/24 01/12/25 Gabapentin 300 mg PO TID 01/12/25 01/12/25 Nitrofurantoin Monohyd/M-Cryst 100 mg PO Q12HR 01/12/25 01/12/25 [Macrobid] Prochlorperazine [Compazine] 10 mg PO DAILY PRN 01/12/25 01/12/25 Sucralfate [Carafate] 1 gm PO ACHS 01/12/25 01/12/25 ondansetron HCL [Zofran] 8 mg PO Q12HR PRN 01/12/25 01/12/25 Previous Rx's Medication Instructions Recorded Pantoprazole Sodium [Protonix] 40 mg PO BID #60 tab 09/20/24 Acetaminophen Tab [Tylenol] 650 mg PO Q6HR PRN tab 01/15/25 Folic Acid 1 mg PO DAILY 90 Days #90 tab 01/15/25 Magnesium Oxide [Mag-Ox] 400 mg PO BID 90 Days #180 tab 01/15/25 Zinc Sulfate [Orazinc] 220 mg PO DAILY 90 Days #90 cap 01/15/25 Allergies Allergy/AdvReac Type Severity Reaction Status Date / Time latex Allergy Rash/Hives Verified 01/23/25 23:48 morphine AdvReac Itching Verified 01/23/25 23:48 Review of Systems ROS Statement: Those systems with pertinent positive or pertinent negative responses have been documented in the HPI. ROS Other: All systems not noted in ROS Statement are negative. Past Medical History Past Medical History: GERD/Reflux, Pulmonary Embolus (PE), Sleep Apnea/CPAP/BIPAP Additional Past Medical History / Comment(s): iron defiency anemia, pulmonary embolism 02/13/24 History of Any Multi-Drug Resistant Organisms: None Reported Past Surgical History: Bariatric Surgery, Section, Cholecystectomy, Tubal Ligation, Uterine Ablation Additional Past Surgical History / Comment(s): 2008 AND 2015 (c/s) and 2010 (cholecyst). 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 gastric bypass 06/11/24 Past Anesthesia/Blood Transfusion Reactions: No Reported Reaction Past Psychological History: Anxiety, Bipolar, Depression Smoking Status: Current some day smoker Past Alcohol Use History: None Reported Past Drug Use History: None Reported - Past Family History Mother Family Medical History: Asthma, COPD, Diabetes Mellitus, Hypertension Additional Family Medical History / Comment(s): depression, anxiety, sleep apnea, Father Family Medical History: Hypertension Additional Family Medical History / Comment(s): arthritis General Exam Limitations: physical limitation General appearance: alert, lethargic Head exam: Present: atraumatic, normocephalic ENT exam: Present: mucous membranes dry Neck exam: Present: normal inspection. Absent: tenderness, meningismus Respiratory exam: Present: normal lung sounds bilaterally. Absent: respiratory distress, wheezes Cardiovascular Exam: Present: normal rhythm, tachycardia GI/Abdominal exam: Present: soft. Absent: distended, tenderness, guarding Neurological exam: Present: alert, oriented X3, motor sensory deficit (She has global weakness no focal findings) Psychiatric exam: Present: depressed, flat affect Skin exam: Present: warm, dry, intact Course Vital Signs 01/23/25 01/24/25 01/24/25 23:39 01:21 02:36 Temperature 98.7 F 98.7 F 98.8 F Pulse Rate 127 H 117 H 120 H Respiratory 20 20 19 Rate Blood Pressure 124/94 129/95 129/87 O2 Sat by Pulse 98 99 99 Oximetry Medical Decision Making - Medical Decision Making Was pt. sent in by a medical professional or institution (, PA, PARTY PLAN SALES AGENT, urgent care, hospital, or fdc...) When possible be specific @ -No Did you speak to anyone other than the patient for history (EMS, parent, family, police, friend...)? What history was obtained from this source @ -No Did you review nursing and triage notes (agree or disagree)? Why? @ -I reviewed and agree with nursing and triage notes Were old charts reviewed (outside hosp., previous admission, EMS record, old EKG, old radiological studies, urgent care reports/EKG's, fdc records)? Report findings @ -No old charts were reviewed Differential Weakness: Hypoglycemia, shock, sepsis, hyponatremia, anemia, infection, KS, ETOH, adverse medicine reaction, overdose, stroke, this is not meant to be an all-inclusive list. EKG interpreted by me (3pts min.). @Sinus tachycardia rate of 126, IL interval 161, QRS duration 85, QTc [address] segment elevation X-rays interpreted by me (1pt min.). @ -None done CT interpreted by me (1pt min.). @ -None done U/S interpreted by me (1pt. min.). @ -None done What testing was considered but not performed or refused? (CT, X-rays, U/S, labs)? Why? @ -None What meds were considered but not given or refused? Why? @ -None Did you discuss the management of the patient with other professionals (professionals i.e. , [employer], PARTY PLAN SALES AGENT, lab, RT, psych nurse, social worker school, neonatal critical care nurse, teacher, chief school finance officer, case manager specialist)? Give summary @ -Dr. Molina Was smoking cessation discussed for >3mins.? @ -No Was critical care preformed (if so, how long)? @ -No Were there social determinants of health that impacted care today? How? (Homelessness, low income, unemployed, alcoholism, drug addiction, transportation, low edu. Level, literacy, decrease access to med. care, halfway, rehab)? @ -No Was there de-escalation of care discussed even if they declined (Discuss DNR or withdrawal of care, Hospice)? DNR status @ -No What co-morbidities impacted this encounter? (DM, HTN, Smoking, COPD, CAD, Cancer, CVA, ARF, Chemo, Hep., AIDS, mental health diagnosis, sleep apnea, morbid obesity)? @ -[Malnutrition status post gastric bypass Was patient admitted / discharged? Hospital course, mention meds given and route, prescriptions, significant lab abnormalities, going to OR and other pertinent info. @34-year-old female presenting with generalized weakness, paresthesia. This is an ongoing issue with this patient secondary to malnutrition. Patient states she has been unable to eat and does appear severely dehydrated. She is globally weak without focal findings. Patient has hypokalemia at 2.9, normal kidney function, her albumin is 2.2. This is suggestive of a severe protein malnutrition. She is prescribed vitamins but is unable to take these secondary to nausea and difficulty swallowing. Patient given electrolyte replacement, vitamins, and IV fluid. She will be admitted to her primary care provider. Undiagnosed new problem with uncertain prognosis? @ -No Drug Therapy requiring intensive monitoring for toxicity (Heparin, Nitro, Insulin, Cardizem)? @ -No Were any procedures done? @ -No Diagnosis/symptom? @ -Dehydration, protein malnutrition, hypokalemia Acute, or Chronic, or Acute on Chronic? @ -[Acute on chronic Uncomplicated (without systemic symptoms) or Complicated (systemic symptoms)? @ -Default Side effects of treatment? @ -No Exacerbation, Progression, or Severe Exacerbation? @ -No Poses a threat to life or bodily function? How? (Chest pain, [place], KS, pneumonia, PE, COPD, DKA, ARF, appy, cholecystitis, CVA, Diverticulitis, Homicidal, Suicidal, threat to staff... and all critical care pts) @ -Yes, electrolyte abnormality, arrhythmia, dehydration - Lab Data Result diagrams: 01/24/25 01:21 01/24/25 01:21 Lab Results 01/24/25 01/24/25 01/24/25 Range/Units 01:21 01:21 01:21 WBC 12.47 H (4.50-10.00) 10*3/uL RBC 3.42 L (4.10-5.20) 10*6/uL Hgb 10.5 L (12.0-15.0) g/dL Hct 29.6 L (37.2-46.3) % MCV 86.5 (80.0-97.0) fL MCH 30.7 (27.0-32.0) pg MCHC 35.5 (32.0-37.0) g/dL Plt Count 358 (140-440) 10*3/uL MPV 10.7 (9.5-12.2) fL Immature Gran % (Auto) 0.6 % Neutrophils % 70.1 % Lymphocytes % 18.3 % Monocytes % 10.5 % Eosinophils % 0.2 % Basophils % 0.3 % Immature Gran # 0.07 H (0.00-0.04) 10*3/uL Neutrophils # 8.75 H (1.80-7.70) 10*3/uL Lymphocytes # 2.28 (0.90-5.00) 10*3/uL Monocytes # 1.31 H (0.20-1.00) 10*3/uL Eosinophils # 0.02 L (0.04-0.35) 10*3/uL Basophils # 0.04 (0.00-0.10) 10*3/uL PT 11.2 (10.0-12.5) sec INR 1.0 (<1.2) APTT 22.9 (22.0-30.0) sec Sodium 137 (137-145) mmol/L Potassium 2.9 L (3.5-5.1) mmol/L Chloride 101 (98-107) mmol/L Carbon Dioxide 32 H (22-30) mmol/L Anion Gap 4 mmol/L BUN 8 (7-17) mg/dL Creatinine 0.34 L (0.52-1.04) mg/dL Est GFR (CKD-EPI)AfAm >90 (>60 ml/min/1.73 sqM) Est GFR (CKD-EPI)NonAf >90 (>60 ml/min/1.73 sqM) Glucose 77 (74-99) mg/dL Plasma Lactic Acid Case (0.7-2.0) mmol/L Calcium 8.6 (8.4-10.2) mg/dL Magnesium 1.6 (1.6-2.3) mg/dL Total Bilirubin 0.6 (0.2-1.3) mg/dL AST 15 (14-36) U/L ALT 13 (4-34) U/L Alkaline Phosphatase 56 (38-126) U/L Total Protein 4.5 L (6.3-8.2) g/dL Albumin 2.2 L (3.5-5.0) g/dL 01/24/25 Range/Units 01:21 WBC (4.50-10.00) 10*3/uL RBC (4.10-5.20) 10*6/uL Hgb (12.0-15.0) g/dL Hct (37.2-46.3) % MCV (80.0-97.0) fL MCH (27.0-32.0) pg MCHC (32.0-37.0) g/dL Plt Count (140-440) 10*3/uL MPV (9.5-12.2) fL Immature Gran % (Auto) % Neutrophils % % Lymphocytes % % Monocytes % % Eosinophils % % Basophils % % Immature Gran # (0.00-0.04) 10*3/uL Neutrophils # (1.80-7.70) 10*3/uL Lymphocytes # (0.90-5.00) 10*3/uL Monocytes # (0.20-1.00) 10*3/uL Eosinophils # (0.04-0.35) 10*3/uL Basophils # (0.00-0.10) 10*3/uL PT (10.0-12.5) sec INR (<1.2) APTT (22.0-30.0) sec Sodium (137-145) mmol/L Potassium (3.5-5.1) mmol/L Chloride (98-107) mmol/L Carbon Dioxide (22-30) mmol/L Anion Gap mmol/L BUN (7-17) mg/dL Creatinine (0.52-1.04) mg/dL Est GFR (CKD-EPI)AfAm (>60 ml/min/1.73 sqM) Est GFR (CKD-EPI)NonAf (>60 ml/min/1.73 sqM) Glucose (74-99) mg/dL Plasma Lactic Acid Case 2.3 H* (0.7-2.0) mmol/L Calcium (8.4-10.2) mg/dL Magnesium (1.6-2.3) mg/dL Total Bilirubin (0.2-1.3) mg/dL AST (14-36) U/L ALT (4-34) U/L Alkaline Phosphatase (38-126) U/L Total Protein (6.3-8.2) g/dL Albumin (3.5-5.0) g/dL Disposition Clinical Impression: Dehydration, Weakness, Unable to ambulate Disposition: ADMITTED IP TO THIS [facility] Condition: Stable Is patient prescribed a controlled substance at d/c from ED?: No Referrals: None,Stated [Primary Care Provider] - 1-2 days Time of Disposition: 02:52
[2025-01-24] MEDS: THIAMINE 100 MG TAB PO SCH (00:44)
[2025-01-24] MEDS: HYDROmorphone 1 MG/ML 1 ML SYRINGE IVP STA (00:44)
[2025-01-24] MEDS: LACTATED RINGERS 1,000 ML IV ONE (00:44)
[2025-01-24] MEDS: FOLIC ACID 1 MG TAB PO SCH (01:02)
[2025-01-24 01:57] LABS: Basophils # (A) 0.04 10*3/uL (0.00-0.10); Basophils % (A) 0.3 %; Eosinophils # (A) 0.02 10*3/uL (0.04-0.35); Eosinophils % (A) 0.2 %; HCT 29.6 % (37.2-46.3); HGB 10.5 g/dL (12.0-15.0); Lymphocytes # (A) 2.28 10*3/uL (0.90-5.00); Lymphocytes % (A) 18.3 %; MCH 30.7 pg (27.0-32.0); MCHC 35.5 g/dL (32.0-37.0); MCV 86.5 fL (80.0-97.0); Mean Platelet Volume 10.7 fL (9.5-12.2); Monocytes # (A) 1.31 10*3/uL (0.20-1.00); Monocytes % (A) 10.5 %; Neutrophils # (A) 8.75 10*3/uL (1.80-7.70); Neutrophils % (A) 70.1 %; Platelet Count 358 10*3/uL (140-440); RBC 3.42 10*6/uL (4.10-5.20); RDW 18.6 % (11.5-14.5); WBC 12.47 10*3/uL (4.50-10.00)
[2025-01-24 02:08] LABS: Partial Thromboplastin Time 22.9 sec (22.0-30.0); Prothrombin Time 11.2 sec (10.0-12.5)
[2025-01-24 02:30] LABS: ALT 13 U/L (4-34); AST 15 U/L (14-36); African American GFR (CKD) >90 (>60 ml/min/1.73 sqM); Albumin 2.2 g/dL (3.5-5.0); Alkaline Phosphatase 56 U/L (38-126); Anion Gap 4 mmol/L; Blood Urea Nitrogen 8 mg/dL (7-17); Calcium 8.6 mg/dL (8.4-10.2); Carbon Dioxide 32 mmol/L (22-30); Chloride 101 mmol/L (98-107); Glucose 77 mg/dL (74-99); Magnesium 1.6 mg/dL (1.6-2.3); Non-African American GFR(CKD) >90 (>60 ml/min/1.73 sqM); Potassium 2.9 mmol/L (3.5-5.1); Sodium 137 mmol/L (137-145); Total Bilirubin 0.6 mg/dL (0.2-1.3); Total Protein 4.5 g/dL (6.3-8.2)
[2025-01-24] MEDS: LACTATED RINGERS 1,000 ML IV SCH (02:31)
[2025-01-24] MEDS ORDERED: NALOXONE 0.4 MG/ML 1 ML VIAL IV PRN (02:47)
[2025-01-24] MEDS ORDERED: ACETAMINOPHEN TAB 325 MG TAB PO PRN ×2 (02:47→11:47)
[2025-01-24] MEDS: HYDROmorphone 1 MG/ML 1 ML SYRINGE IVP PRN (03:46)
[2025-01-24] MEDS: POTASSIUM CHLORIDE 10 MEQ in WATER FOR INJECTION 1 100ML.BAG IVPB SCH (03:52)
[2025-01-24] MEDS: POTASSIUM BICARBONATE/CIT AC 20 MEQ TABLET.EFF PO ONE (04:49)
[2025-01-24] MEDS ORDERED: PROCHLORPERAZINE 10 MG TAB PO PRN (11:47)
[2025-01-24] MEDS ORDERED: ONDANSETRON ODT 4 MG TAB PO PRN (11:47)
[2025-01-24] MEDS ORDERED: Potassium Replacement Protocol 1 EACH MISC MISCELLANE PRN (12:04)
[2025-01-24] MEDS: SUCRALFATE 1 GM TAB PO SCH (13:55)
[2025-01-24] MEDS: HYDROmorphone 0.5 MG/0.5 ML SYRINGE IVP PRN (13:55)
[2025-01-24] MEDS: ONDANSETRON 4 MG/2 ML VIAL IVP PRN (13:57)
[2025-01-24] MEDS: HYDROcodone/APAP 5-325MG 1 EACH TAB PO PRN (16:21)
[2025-01-24] MEDS: GABAPENTIN 300 MG CAP PO SCH (16:21)
[2025-01-24] MEDS: PROPRANOLOL 20 MG TAB PO SCH (20:00)
[2025-01-24] MEDS: PANTOPRAZOLE 40 MG TABLET PO SCH (20:00)
[2025-01-24] MEDS: MAGNESIUM OXIDE 400 MG TAB PO SCH (20:00)
[2025-01-24] MEDS: QUEtiapine 100 MG TAB PO SCH (20:00)
[2025-01-24] MEDS: traZODone HCL 100 MG TAB PO SCH (20:00)
[2025-01-24] MEDS: SYMBICORT 160-4.5 MCG INHALER INHALATION SCH (21:38)
--- NOTE | 2025-01-25 02:36 | HP ---
HISTORY AND PHYSICAL Came in for malnutrition, failure to thrive. She has been unable to eat or drink, keep anything down. Worst facial numbness, extremity numbness. She has been treated for B12 and folic acid deficiency. White count is 12.47, hemoglobin is 10.5. Elevated neutrophil count. Sodium 137, potassium 2.9 on admission, CO2 is 32. Lactic acid calorie malnutrition. Albumin is 2.2. States she has been eating and drinking. She has lost so much weight since vascular surgery has been done and repeated [facility], possibly transfer the patient if she is not improved with her diet and appetite. She is not improving. She has lost so much weight, due to the failed treatment of gastric surgery and revision of the surgery, she will have to be transferred down to possibly [facility] for asthma, COPD, diabetes mellitus, hypertension continues. She looks weak, lethargic. Skin warm and dry. She . Abdomen is soft. Respiratory essentially clear. Heart: S1, S2. Neurologic: Cranial nerves intact. [id number] dehydration, weakness, unable to ambulate, unable to eat and drink, possibly tube feeds prognosis guarded. Possibly transfer to [facility] for further workup on her gastric surgery. MMODL / IJN: [id number] /
[2025-01-25] MEDS: FOLIC ACID 1 MG TAB PO SCH (08:46)
[2025-01-25] MEDS: ZINC SULFATE 220 MG CAP PO SCH (08:46)
[2025-01-25] MEDS: FERROUS SULFATE 325 MG TAB PO SCH (08:46)
[2025-01-25] MEDS: NICOTINE 21MG/24HR PATCH TRANSDERM SCH (08:47)
--- NOTE | 2025-01-25 09:10 | P.GSCN ---
History of Present Illness Consult date: 01/25/25 History of present illness: CHIEF COMPLAINT: Weakness and numbness HISTORY OF PRESENT ILLNESS: This is a 34-year-old female with recurrent hospitalizations due to poor oral intake. She presents to the ER this time with weakness, dehydration and numbness and tingling throughout her body. She has a known history of sleeve gastrectomy on December 20, 2023 that then required conversion to Glenn-en-Y gastric bypass on 06/11/2024 at [facility]. Patient had been transferred to [facility] during her hospitalization in November 2024. Patient reports at that time she had a recent endoscopic GI stent placement and then removal. Patient reports she had some improvement in oral intake with the stent placement. Patient has difficulty with transportation and leaving her children to go to her follow-ups at [facility]. Patient reports having vitamin deficiencies. She feels been having difficulty keeping down her medications and any food. Patient denies any abdominal pain. She has been mildly tachycardic. Patient seen and examined with Dr. Liu PAST MEDICAL HISTORY: GERD/Reflux, Pulmonary Embolus (PE), Sleep Apnea/CPAP/BIPAP, iron defiency anemia, pulmonary embolism 02/13/24, anxiety, bipolar, depression PAST SURGICAL HISTORY: AND 2015 (c/s) and 2010 (cholecyst). 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 gastric bypass 06/11/24 MEDICATIONS: See below ALLERGIES: See below SOCIAL HISTORY: No illicit drug use. REVIEW OF SYSTEMS: CONSTITUTIONAL: Denies fever or chills. HEENT: Denies blurred vision, vision changes, or eye pain. Denies hemoptysis CARDIOVASCULAR: Denies chest pain or pressure. RESPIRATORY: No shortness of breath. GASTROINTESTINAL: See HPI for pertinent findings HEMATOLOGIC: Denies bleeding disorders. GENITOURINARY: Denies any blood in urine or increased urinary frequency. SKIN: Denies pruitis. Denies rash. PHYSICAL EXAM: VITAL SIGNS: Reviewed GENERAL: no acute distress. Malnourished. Pale. HEENT: No sclera icterus. Extraocular movements grossly intact. Moist buccal mucosa. Head is atraumatic, normocephalic. No nasal drainage. ABDOMEN: Soft. Nondistended. Nontender NEUROLOGIC: Alert and oriented. Cranial nerves II through XII grossly intact. LABORATORY DATA: WBC 12.47 Hgb 10.5 platelets 358 Sodium 137 potassium 2.9 with replacement up to 3.5 creatinine 0.34 Lactic acid 2.3 down to 1.3 magnesium 1.6 Albumin 2.2 IMAGING: ASSESSMENT: 1. Dehydration 2. Numbness and tingling throughout her body. Checking B12 level to evaluate for B12 deficiency 3. Recent endoscopic GI procedure with stent placement at [facility] with removal of stent 4. History of sleeve gastrectomy with conversion to Glenn-en-Y gastric bypass in May 2024 at [facility] PLAN: - Continue IV fluids - Check B12 level - Recommend transfer to [facility] where patient has had her Glenn-en-Y gastric bypass and recent endoscopic GI stent procedure and removal of stent - Continue clear liquid diet Physician Police Superintendent note has been reviewed by physician. Signing provider agrees with the documented findings, assessment, and plan of care. Past Medical History Past Medical History: GERD/Reflux, Pulmonary Embolus (PE), Sleep Apnea/CPAP/B IPAP Additional Past Medical History / Comment(s): iron defiency anemia, pulmonary embolism 02/13/24 History of Any Multi-Drug Resistant Organisms: None Reported Past Surgical History: Bariatric Surgery, Section, Cholecystectomy, Tubal Ligation, Uterine Ablation Additional Past Surgical History / Comment(s): 2008 AND 2015 (c/s) and 2010 (cholecyst). 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 gastric bypass 06/11/24 Past Anesthesia/Blood Transfusion Reactions: No Reported Reaction Past Psychological History: Anxiety, Bipolar, Depression Additional Psychological History / Comment(s): Pt on oral medications Smoking Status: Current some day smoker Past Alcohol Use History: None Reported Additional Past Alcohol Use History / Comment(s): Pt smokes a couple cigarrettes a day Past Drug Use History: None Reported - Past Family History Mother Family Medical History: Asthma, COPD, Diabetes Mellitus, Hypertension Additional Family Medical History / Comment(s): depression, anxiety, sleep apnea, Father Family Medical History: Hypertension Additional Family Medical History / Comment(s): arthritis Medications and Allergies Home Medications Medication Instructions Recorded Confirmed Type Budesonide/Formoterol Fumarate 2 puff INHALATION RT-BID 07/12/24 01/24/25 History [Symbicort 160-4.5 Mcg Inhaler] QUEtiapine [SEROquel] 100 mg PO HS 07/12/24 01/24/25 History Tiotropium 2.5 Mcg/Puff [Spiriva 2 puff INHALATION RT-DAILY 07/12/24 01/24/25 History Respimat 2.5 Mcg] traZODone HCL [Desyrel] 100 mg PO HS 07/12/24 01/24/25 History Nicotine 21Mg/24Hr Patch [Habitrol] 1 patch TRANSDERM DAILY 09/07/24 01/24/25 History Pantoprazole Sodium [Protonix] 40 mg PO BID #60 tab 09/20/24 01/24/25 Rx Ferrous Sulfate [Iron (65 MG 325 mg PO DAILY 10/18/24 01/24/25 History Elemental)] Propranolol [Inderal] 20 mg PO BID 10/18/24 01/24/25 History HYDROcodone/APAP 5-325MG [[place] 1 tab PO BID PRN 11/13/24 01/24/25 History 5-325] Potassium Chloride ER [K-Dur 20] 20 meq PO Q2D 11/13/24 01/24/25 History Gabapentin 300 mg PO TID 01/12/25 01/24/25 History Nitrofurantoin Monohyd/M-Cryst 100 mg PO Q12HR 01/12/25 01/24/25 History [Macrobid] Prochlorperazine [Compazine] 10 mg PO DAILY PRN 01/12/25 01/24/25 History Sucralfate [Carafate] 1 gm PO ACHS 01/12/25 01/24/25 History ondansetron HCL [Zofran] 8 mg PO Q12HR PRN 01/12/25 01/24/25 History Acetaminophen Tab [Tylenol] 650 mg PO Q6HR PRN tab 01/15/25 01/24/25 Rx Folic Acid 1 mg PO DAILY 90 Days #90 tab 01/15/25 01/24/25 Rx Magnesium Oxide [Mag-Ox] 400 mg PO BID 90 Days #180 tab 01/15/25 01/24/25 Rx Zinc Sulfate [Orazinc] 220 mg PO DAILY 90 Days #90 cap 01/15/25 01/24/25 Rx Allergies Allergy/AdvReac Type Severity Reaction Status Date / Time latex Allergy Rash/Hives Verified 01/24/25 08:58 morphine AdvReac Itching Verified 01/24/25 08:58 Surgical - Exam Vital Signs Temp Pulse Resp BP Pulse Ox 98.7 F 127 H 20 124/94 98 01/23/25 23:39 01/23/25 23:39 01/23/25 23:39 01/23/25 23:39 01/23/25 23:39 Results - Labs 01/24/25 01:21 01/24/25 13:08 Diabetes panel 01/24/25 Range/Units 13:08 Potassium 3.5 (3.5-5.1) mmol/L Pituitary panel 01/24/25 Range/Units 13:08 Potassium 3.5 (3.5-5.1) mmol/L Adrenal panel 01/24/25 Range/Units 13:08 Potassium 3.5 (3.5-5.1) mmol/L
[2025-01-25] MEDS: TIOTROPIUM 2.5 MCG INHALER INHALATION SCH (09:22)
[2025-01-25 14:17] VITALS: BMI 22.6
--- NOTE | 2025-01-25 17:25 | P.CRDCN ---
History of Present Illness Consult date: 01/25/25 History of present illness: - . HPI: This is unfortunate 34-year-old lady who has had multiple surgeries at [facility] for a gastric sleeve and a gastric bypass and has been not able to take anything orally in. I was asked to see her mainly because of an abnormal EKG. Her potassium on admission was 2.9 magnesium was 1.[address] and T wave changes. Similar scenario was seen when she came in earlier in the year and October or so. After correcting the potassium level to 3.5 a repeat EKG today revealed sinus mechanism with much more normal looking EKG. I am recommending a repeat potassium and magnesium level and to supplement this. There was also a question of arrhythmia but on reviewing the rhythm strips there is no evidence of any significant arrhythmia. Patient had an echocardiogram within the last year and that study revealed normal systolic function. The echo was performed in August 2020 for here in [facility] and revealed ejection fraction in the 50 to 55% range without significant abnormality on the Doppler exam. I explained this to the patient as well as her friend who was with her I explained to them that no intervention is necessary I will look into the repeat EKG and no further evaluation is necessary from a cardiac standpoint at this time. She is being considered for possible transfer to [facility]. I do not see any objection in this regard. She has no previous significant cardiac history that we know of. RELEVANT PAST MEDICAL HISTORY:. This is remarkable for multiple previous GI surgeries including a sleeve and bypass. She also has reflux disease I think. She has no known cardiac history. She has in the chart diagnosis of sleep apnea iron deficiency anemia and previous history of pulmonary embolism details of which are unavailable. MEDICATIONS: Please refer to the chart ALLERGIES:. Please refer to the chart REVIEW OF SYSTEMS:. Unremarkable for any chest pain shortness of breath palpitations syncope or near syncope. EKG reveals sinus rhythm with a nonspecific ST and T wave abnormality PHYSICIAL EXAM:. Vitals are stable no JVD S1-S2 heard normally no significant murmurs lungs reveal bilateral decent air entry abdomen is soft. Central nervous system grossly within normal limits no focal deficits I did not do a detailed examination IMPRESSION: 1.. Abnormal EKG secondary to hypokalemia improved upon correction of the electrolyte abnormality 2.. Hypokalemia on admission improved. 3.. 4.. 5.. RECOMMENDATIONS:. Continue current medical therapy. I would recommend that we check a potassium and magnesium level and correct as needed. From a cardiac standpoint no other intervention but in future I would keep track of her electrolytes more closely. This patient has multiple comorbid conditions. Cardiac her stable I will come back and see her if needed. Past Medical History Past Medical History: GERD/Reflux, Pulmonary Embolus (PE), Sleep Apnea/CPAP/BIPAP Additional Past Medical History / Comment(s): iron defiency anemia, pulmonary embolism 02/13/24 History of Any Multi-Drug Resistant Organisms: None Reported Past Surgical History: Bariatric Surgery, Section, Cholecystectomy, Tubal Ligation, Uterine Ablation Additional Past Surgical History / Comment(s): 2008 AND 2015 (c/s) and 2010 (ch olecyst). 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 gastric bypass 06/11/24 Past Anesthesia/Blood Transfusion Reactions: No Reported Reaction Past Psychological History: Anxiety, Bipolar, Depression Additional Psychological History / Comment(s): Pt on oral medications Smoking Status: Current some day smoker Past Alcohol Use History: None Reported Additional Past Alcohol Use History / Comment(s): Pt smokes a couple cigarrettes a day Past Drug Use History: None Reported - Past Family History Mother Family Medical History: Asthma, COPD, Diabetes Mellitus, Hypertension Additional Family Medical History / Comment(s): depression, anxiety, sleep apnea, Father Family Medical History: Hypertension Additional Family Medical History / Comment(s): arthritis Medications and Allergies Home Medications Medication Instructions Recorded Confirmed Type Budesonide/Formoterol Fumarate 2 puff INHALATION RT-BID 07/12/24 01/24/25 History [Symbicort 160-4.5 Mcg Inhaler] QUEtiapine [SEROquel] 100 mg PO HS 07/12/24 01/24/25 History Tiotropium 2.5 Mcg/Puff [Spiriva 2 puff INHALATION RT-DAILY 07/12/24 01/24/25 History Respimat 2.5 Mcg] traZODone HCL [Desyrel] 100 mg PO HS 07/12/24 01/24/25 History Nicotine 21Mg/24Hr Patch [Habitrol] 1 patch TRANSDERM DAILY 09/07/24 01/24/25 History Pantoprazole Sodium [Protonix] 40 mg PO BID #60 tab 09/20/24 01/24/25 Rx Ferrous Sulfate [Iron (65 MG 325 mg PO DAILY 10/18/24 01/24/25 History Elemental)] Propranolol [Inderal] 20 mg PO BID 10/18/24 01/24/25 History HYDROcodone/APAP 5-325MG [[place] 1 tab PO BID PRN 11/13/24 01/24/25 History 5-325] Potassium Chloride ER [K-Dur 20] 20 meq PO Q2D 11/13/24 01/24/25 History Gabapentin 300 mg PO TID 01/12/25 01/24/25 History Nitrofurantoin Monohyd/M-Cryst 100 mg PO Q12HR 01/12/25 01/24/25 History [Macrobid] Prochlorperazine [Compazine] 10 mg PO DAILY PRN 01/12/25 01/24/25 History Sucralfate [Carafate] 1 gm PO ACHS 01/12/25 01/24/25 History ondansetron HCL [Zofran] 8 mg PO Q12HR PRN 01/12/25 01/24/25 History Acetaminophen Tab [Tylenol] 650 mg PO Q6HR PRN tab 01/15/25 01/24/25 Rx Folic Acid 1 mg PO DAILY 90 Days #90 tab 01/15/25 01/24/25 Rx Magnesium Oxide [Mag-Ox] 400 mg PO BID 90 Days #180 tab 01/15/25 01/24/25 Rx Zinc Sulfate [Orazinc] 220 mg PO DAILY 90 Days #90 cap 01/15/25 01/24/25 Rx Allergies Allergy/AdvReac Type Severity Reaction Status Date / Time latex Allergy Rash/Hives Verified 01/24/25 08:58 morphine AdvReac Itching Verified 01/24/25 08:58 Physical Exam Vitals: Vital Signs Temp Pulse Resp BP Pulse Ox 01/25/25 14:11 98.3 F 96 18 117/83 100 01/25/25 07:33 98.3 F 104 H 17 117/87 100 01/25/25 04:48 16 01/25/25 01:16 98.0 F 95 18 110/77 99 01/24/25 19:08 99.2 F 117 H 16 132/89 99 Intake and Output 01/25/25 01/25/25 01/25/25 06:59 14:59 22:59 Intake Total 120 100 120 Balance 120 100 120 Intake: Oral 120 100 120 Other: # Voids 5 1 # Bowel Movements 5 1 Weight 56.245 kg Results 01/24/25 01:21 01/24/25 13:08 Current Medications Generic Name Dose Route Start Last Admin Trade Name Freq PRN Reason Stop Dose Admin Acetaminophen 650 mg 01/24/25 11:47 Acetaminophen Tab 325 Mg Tab PO Q6HR PRN Mild Pain or Fever > 100.5 Hydrocodone Bitart/Acetaminophen 1 each 01/24/25 11:47 01/25/25 06:34 Hydrocodone/Apap 5-325mg 1 Each Tab PO 1 each BID PRN Administration Pain Budesonide/Formoterol Fumarate 2 puff 01/24/25 20:00 01/25/25 09:21 Symbicort 160-4.5 Mcg Inhaler INHALATION Not Given RT-BID ELPIDIO Ferrous Sulfate 325 mg 01/25/25 09:00 01/25/25 08:46 Ferrous Sulfate 325 Mg Tab PO 325 mg DAILY ELPIDIO Administration Folic Acid 1 mg 01/25/25 09:00 01/25/25 08:46 Folic Acid 1 Mg Tab PO 1 mg DAILY ELPIDIO Administration Gabapentin 300 mg 01/24/25 16:00 01/25/25 16:58 Gabapentin 300 Mg Cap PO Not Given TID ELPIDIO Hydromorphone HCl 0.5 mg 01/24/25 02:47 01/25/25 12:55 Hydromorphone 0.5 Mg/0.5 Ml Syringe IVP 0.5 mg Q3HR PRN Administration Moderate Pain (Scale 4 to 6) Hydromorphone HCl 1 mg 01/24/25 02:47 01/25/25 15:37 Hydromorphone 1 Mg/Ml 1 Ml Syringe IVP 1 mg Q3HR PRN Administration Severe Pain (Scale 7 to 10) Lactated Ringer's 1,000 mls @ 130 mls/hr 01/24/25 00:15 01/25/25 15:37 Lactated Ringers IV 130 mls/hr .[id number] ELPIDIO Administration Magnesium Oxide 400 mg 01/24/25 21:00 01/25/25 08:46 Magnesium Oxide 400 Mg Tab PO 400 mg BID ELPIDIO Administration Miscellaneous Information 1 each 01/24/25 12:04 Potassium Replacement Protocol 1 Each Misc MISCELLANE DAILY PRN Per Protocol Protocol Naloxone HCl 0.2 mg 01/24/25 02:47 Naloxone 0.4 Mg/Ml 1 Ml Vial IV Q2M PRN Opioid Reversal Nicotine 1 patch 01/25/25 09:00 01/25/25 08:47 Nicotine 21mg/24hr Patch TRANSDERM 1 patch DAILY ELPIDIO Administration Ondansetron HCl 4 mg 01/24/25 02:47 01/24/25 21:34 Ondansetron 4 Mg/2 Ml Vial IVP 4 mg Q8HR PRN Administration Nausea And Vomiting Ondansetron HCl 8 mg 01/24/25 11:47 Ondansetron Odt 4 Mg Tab PO Q12HR PRN Nausea Pantoprazole Sodium 40 mg 01/24/25 21:00 01/25/25 08:46 Pantoprazole 40 Mg Tablet PO 40 mg BID ELPIDIO Administration Petrolatum 1 applic 01/25/25 08:55 Zinc Oxide Paste (Z-Guard) 1 Applic TOPICAL BID PRN Wound Healing Protocol Prochlorperazine Maleate 10 mg 01/24/25 11:47 Prochlorperazine 10 Mg Tab PO DAILY PRN Nausea Propranolol HCl 20 mg 01/24/25 21:00 01/25/25 08:46 Propranolol 20 Mg Tab PO 20 mg BID ELPIDIO Administration Quetiapine Fumarate 100 mg 01/24/25 21:00 01/24/25 20:00 Quetiapine 100 Mg Tab PO 100 mg HS ELPIDIO Administration Sucralfate 1 gm 01/24/25 12:30 01/25/25 17:05 Sucralfate 1 Gm Tab PO Not Given ACHS ELPIDIO Thiamine HCl 100 mg 01/23/25 23:45 01/25/25 08:46 Thiamine 100 Mg Tab PO 100 mg DAILY ELPIDIO Administration Tiotropium [place] 2 puff 01/25/25 08:00 01/25/25 09:22 Tiotropium 2.5 Mcg Inhaler INHALATION Not Given RT-DAILY ELPIDIO Trazodone HCl 100 mg 01/24/25 21:00 01/24/25 20:00 Trazodone Hcl 100 Mg Tab PO 100 mg HS ELPIDIO Administration Zinc Sulfate 220 mg 01/25/25 09:00 01/25/25 08:46 Zinc Sulfate 220 Mg Cap PO 220 mg DAILY ELPIDIO Administration Intake and Output 01/25/25 01/25/25 01/25/25 06:59 14:59 22:59 Intake Total 120 100 120 Balance 120 100 120 Intake: Oral 120 100 120 Other: # Voids 5 1 # Bowel Movements 5 1 Weight 56.245 kg Patient Weight 01/26/25 06:59 Weight 56.245 kg 01/24/25 01:21 01/24/25 13:08
[2025-01-25 19:42] LABS: Magnesium 1.4 mg/dL (1.6-2.3); Potassium 3.4 mmol/L (3.5-5.1)
[2025-01-25] MEDS: MAGNESIUM SULFATE-D5W PMX 1 GM in DEXTROSE/WATER 1 100ML.BAG IVPB SCH (20:26)
[2025-01-25] MEDS: ZINC OXIDE PASTE (Z-GUARD) 1 APPLIC TOPICAL PRN (21:36)
[2025-01-25] MEDS: POTASSIUM CHLORIDE 10 MEQ in WATER FOR INJECTION 1 100ML.BAG IVPB SCH (22:59)
[2025-01-26] MEDS: POTASSIUM BICARBONATE/CIT AC 20 MEQ TABLET.EFF PO ONE (01:40)
[2025-01-26 09:10] LABS: African American GFR (CKD) >90 (>60 ml/min/1.73 sqM); Anion Gap 8 mmol/L; Blood Urea Nitrogen 11 mg/dL (7-17); Calcium 7.9 mg/dL (8.4-10.2); Carbon Dioxide 26 mmol/L (22-30); Chloride 100 mmol/L (98-107); Glucose 71 mg/dL (74-99); Non-African American GFR(CKD) >90 (>60 ml/min/1.73 sqM); Potassium 4.2 mmol/L (3.5-5.1); Sodium 134 mmol/L (137-145)
--- NOTE | 2025-01-26 10:15 | P.PN ---
Subjective Progress Note Date: 01/26/25 Principal diagnosis: 1. Dehydration 2. Numbness and tingling throughout her body. Checking B12 level to evaluate for B12 deficiency 3. Recent endoscopic GI procedure with stent placement at [facility] with removal of stent 4. History of sleeve gastrectomy with conversion to Glenn-en-Y gastric bypass in May 2024 at [facility] January 26, 2025, patient seen eval examined during rounds patient continued to have issues associated with generalized weakness chemistry significant for hyponatremia potassium improved to 4.2, up from 2.9. BUN/creatinine is 11/0.4 CO2 improved to 26 from 32 magnesium is 1.4 review of data revealed that patient is a 34-year-old female with recurrent hospitalizations due to poor oral intake. She presents to the ER this time with weakness, dehydration and numbness and tingling throughout her body. She has a known history of sleeve gastrectomy on December 20, 2023 that then required conversion to Glenn-en-Y gastric bypass on 06/11/2024 at [facility]. Patient had been transferred to [facility] during her hospitalization in November 2024. Patient reports at that time she had a recent endoscopic GI stent placement and then removal. Patient reports she had some improvement in oral intake with the stent placement. Patient has difficulty with transportation and leaving her children to go to her follow-ups at [facility]. Patient reports having vitamin deficiencies. She feels been having difficulty keeping down her medications and any food. Patient denies any abdominal pain. She has been mildly tachycardic. Objective - Vital Signs Vital signs: Vital Signs Temp 98 F 01/26/25 07:05 Pulse 100 01/26/25 07:05 Resp 19 01/26/25 07:05 BP 113/89 01/26/25 07:05 Pulse Ox 99 01/26/25 07:05 FiO2 Intake & Output 01/25/25 01/26/25 01/26/25 18:59 06:59 18:59 Intake Total 220 Balance 220 Weight 56.245 kg Intake: Oral 220 Other: Voiding Method Bedside Commode # Voids 1 4 # Bowel Movements 1 2 - Constitutional General appearance: Present: average body habitus, cooperative, disheveled - EENT Eyes: Present: EOMI, PERRLA ENT: Present: normal oropharynx Ears: bilateral: normal - Neck Neck: Present: normal ROM Carotids: bilateral: upstroke normal Thyroid: bilateral: normal size - Respiratory Respiratory: bilateral: CTA - Cardiovascular Rhythm: regular Heart sounds: normal: S1, S2 - Gastrointestinal General gastrointestinal: Present: normal bowel sounds, soft - Integumentary Integumentary: Present: normal turgor - Neurologic Neurologic: Present: CNII-XII intact - Musculoskeletal Musculoskeletal: Present: gait normal, generalized weakness, strength equal bilaterally - Psychiatric Psychiatric: Present: A&O x's 3, appropriate affect, intact judgment & insight - Labs CBC & Chem 7: 01/24/25 01:21 01/26/25 08:25 Labs: Abnormal Lab Results - Last 24 Hours (Table) 01/25/25 01/26/25 Range/Units 19:05 08:25 Sodium 134 L (137-145) mmol/L Potassium 3.4 L (3.5-5.1) mmol/L Creatinine 0.24 L (0.52-1.04) mg/dL Glucose 71 L (74-99) mg/dL Calcium 7.9 L (8.4-10.2) mg/dL Magnesium 1.4 L (1.6-2.3) mg/dL Assessment and Plan Assessment: H hypomagnesemia, continue replace Severe hypokalemia, continue replace potassium Volume depletion dehydration, gently rehydrate Numbness and tingling throughout the body however with normal B12 and thiamine level Patient to be reevaluated for GI stent placement History of sleeve gastrectomy followed by conversion to RNY gastric bypass in May 2024 Surgery have recommended to transfer to [facility] for reevaluation and stent placed Plan: As above Time with Patient: Greater than 30
--- NOTE | 2025-01-26 10:18 | P.DS ---
Providers Date of admission: 01/24/25 02:48 Expected date of discharge: 01/26/25 Attending physician: Justin Molina Consults: 01/25/25 00:25 Consult Physician Routine Consulting Provider: Walter Meier Consult Reason/Comments: abnormal ekg Do you want consulting provider notified?: Yes 01/25/25 00:27 Consult Physician Routine Consulting Provider: Rogelio Liu Consult Reason/Comments: failed gastric surgery Do you want consulting provider notified?: Yes Primary care physician: [facility] Hospital Course: patient continued to have issues associated with generalized weakness chemistry significant for hyponatremia potassium improved to 4.2, up from 2.9. BUN/creatinine is 11/0.4 CO2 improved to 26 from 32 magnesium is 1.4 review of data revealed that patient is a 34-year-old female with recurrent hospitalizations due to poor oral intake. She presents to the ER this time with weakness, dehydration and numbness and tingling throughout her body. 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 Patient had been transferred to [facility] during her hospitalization in November 2024. Patient reports at that time she had a recent endoscopic GI stent placement and then removal. Patient reports she had some improvement in oral intake with the stent placement. Patient has difficulty with transportation and leaving her children to go to her follow-ups at [facility]. Patient reports having vitamin deficiencies. She feels been having difficulty keeping down her medications and any food. Patient denies any abdominal pain. She has been mildly tachycardic. Assessment: hypomagnesemia, continue replace Severe hypokalemia, continue replace potassium Volume depletion dehydration, gently rehydrate Numbness and tingling throughout the body however with normal B12 and thiamine level Patient to be reevaluated for GI stent placement History of sleeve gastrectomy followed by conversion to RNY gastric bypass in May 2024 Surgery have recommended to transfer to [facility] for reevaluation and stent placed Patient Condition at Discharge: Stable Plan - Discharge Summary Discharge Rx Participant: Yes New Discharge Prescriptions: No Action Tiotropium 2.5 Mcg/Puff [Spiriva Respimat 2.5 Mcg] 2 puff INHALATION RT-DAILY Nicotine 21Mg/24Hr Patch [Habitrol] 1 patch TRANSDERM DAILY Pantoprazole Sodium [Protonix] 40 mg PO BID #60 tab Propranolol [Inderal] 20 mg PO BID HYDROcodone/APAP 5-325MG [[place] 5-325] 1 tab PO BID PRN PRN Reason: Pain Potassium Chloride ER [K-Dur 20] 20 meq PO Q2D Prochlorperazine [Compazine] 10 mg PO DAILY PRN PRN Reason: Nausea Sucralfate [Carafate] 1 gm PO ACHS Folic Acid 1 mg PO DAILY 90 Days #90 tab Acetaminophen Tab [Tylenol] 650 mg PO Q6HR PRN tab PRN Reason: Mild Pain Or Fever > 100.5 QUEtiapine [SEROquel] 100 mg PO HS traZODone HCL [Desyrel] 100 mg PO HS Budesonide/Formoterol Fumarate [Symbicort 160-4.5 Mcg Inhaler] 2 puff INHALATION RT-BID Ferrous Sulfate [Iron (65 MG Elemental)] 325 mg PO DAILY Gabapentin 300 mg PO TID Nitrofurantoin Monohyd/M-Cryst [Macrobid] 100 mg PO Q12HR ondansetron HCL [Zofran] 8 mg PO Q12HR PRN PRN Reason: Nausea Magnesium Oxide [Mag-Ox] 400 mg PO BID 90 Days #180 tab Zinc Sulfate [Orazinc] 220 mg PO DAILY 90 Days #90 cap Discharge Medication List Budesonide/Formoterol Fumarate [Symbicort 160-4.5 Mcg Inhaler] 2 puff INHALATION RT-BID 07/12/24 [History] QUEtiapine [SEROquel] 100 mg PO HS 07/12/24 [History] Tiotropium 2.5 Mcg/Puff [Spiriva Respimat 2.5 Mcg] 2 puff INHALATION RT-DAILY 07/12/24 [History] traZODone HCL [Desyrel] 100 mg PO HS 07/12/24 [History] Nicotine 21Mg/24Hr Patch [Habitrol] 1 patch TRANSDERM DAILY 09/07/24 [History] Pantoprazole Sodium [Protonix] 40 mg PO BID #60 tab 09/20/24 [Rx] Ferrous Sulfate [Iron (65 MG Elemental)] 325 mg PO DAILY 10/18/24 [History] Propranolol [Inderal] 20 mg PO BID 10/18/24 [History] HYDROcodone/APAP 5-325MG [[place] 5-325] 1 tab PO BID PRN 11/13/24 [History] Potassium Chloride ER [K-Dur 20] 20 meq PO Q2D 11/13/24 [History] Gabapentin 300 mg PO TID 01/12/25 [History] Nitrofurantoin Monohyd/M-Cryst [Macrobid] 100 mg PO Q12HR 01/12/25 [History] Prochlorperazine [Compazine] 10 mg PO DAILY PRN 01/12/25 [History] Sucralfate [Carafate] 1 gm PO ACHS 01/12/25 [History] ondansetron HCL [Zofran] 8 mg PO Q12HR PRN 01/12/25 [History] Acetaminophen Tab [Tylenol] 650 mg PO Q6HR PRN tab 01/15/25 [Rx] Folic Acid 1 mg PO DAILY 90 Days #90 tab 01/15/25 [Rx] Magnesium Oxide [Mag-Ox] 400 mg PO BID 90 Days #180 tab 01/15/25 [Rx] Zinc Sulfate [Orazinc] 220 mg PO DAILY 90 Days #90 cap 01/15/25 [Rx] Follow up Appointment(s)/Referral(s): None,Stated [REFERRING] - 1-2 days Justin Molina MD [Primary Care Provider] - 1 Week Discharge Disposition: TRANSFER TO SHORT TERM HOSP
[2025-01-26 20:59] VITALS: BP 108/78; PULSE 104; RESP 15; TEMP 98.5
== END 2025-01-26 23:34 | disposition short-term general hospital (02) ==
LOC: EC 23:32 → INTOOBSV 01-24 02:48 → 4SSUR 01-24 02:48
PROVIDERS: ADMIT Family Medicine; ATTEND Family Medicine
DX: E83.42 Hypomagnesemia (principal); E87.6 Hypokalemia; R94.31 Abnormal electrocardiogram [ECG] [EKG]; E86.0 Dehydration; R53.1 Weakness; R26.2 Difficulty in walking, not elsewhere classified; R20.0 Anesthesia of skin; R20.2 Paresthesia of skin; G47.30 Sleep apnea, unspecified; K21.9 Gastro-esophageal reflux disease without esophagitis; F31.9 Bipolar disorder, unspecified; F41.9 Anxiety disorder, unspecified; J44.89 Other specified chronic obstructive pulmonary disease; E11.9 Type 2 diabetes mellitus without complications; I10 Essential (primary) hypertension; F17.200 Nicotine dependence, unspecified, uncomplicated; R63.8 Other symptoms and signs concerning food and fluid intake; R62.7 Adult failure to thrive; Z68.22 Body mass index [BMI] 22.0-22.9, adult; Z86.711 Personal history of pulmonary embolism; Z98.84 Bariatric surgery status; Z79.51 Long term (current) use of inhaled steroids; Z79.899 Other long term (current) drug therapy; Z88.5 Allergy status to narcotic agent; Z91.040 Latex allergy status
CPT/HCPCS: 96376 ×4; 96361 ×4; 96365 ×2; 96366; 96367; 96375 ×2; 99285; 36415; 93005; 80053; 80048; 82607; 82746; 83605; 83735 ×2; 84132 ×2; 85025; 85610; 85730; G0378 ×3; S4990 ×2; J2405 ×3; J1171 ×5; J3475; J3480 ×2

== ENCOUNTER 2025-03-30 17:59 | Emergency (ER) | payer OTHER ==
[2025-03-30 18:06] VITALS: TEMP 98.9
--- NOTE | 2025-03-30 18:23 | ED ---
General Adult HPI - General Chief complaint: Nausea/Vomiting/Diarrhea Stated complaint: Abd pain Time Seen by Provider: 03/30/25 18:06 Source: patient Mode of arrival: EMS Limitations: no limitations - History of Present Illness Initial comments: Dictation was produced using [employer] dictation software. please excuse any grammatical, word or spelling errors. Chief Complaint: 34-year-old female presents to the emergency department with acute on chronic abdominal pain, nausea vomiting History of Present Illness: Patient 34-year-old female states that she was diagnosed with chronic malnutrition. States that she has history of complicated bariatric surgery that needed revision in 24 to hospital. Patient deals with chronic abdominal pain. States that over the last 3 to 4 days she has been having worsening abdominal pain. States that the pain is to her epigastrium and her right upper quadrant. She states that this is typical of her usual chronic postoperative surgical pain. Patient states she was recently here in required transfer to [facility] for further care due to severe malnutrition. The ROS documented in this emergency department record has been reviewed and confirmed by me. Those systems with pertinent positive or negative responses have been documented in the HPI. All other systems are other negative and/or noncontributory. - Related Data Home Medications Medication Instructions Recorded Confirmed Budesonide/Formoterol Fumarate 2 puff INHALATION RT-BID 07/12/24 01/24/25 [Symbicort 160-4.5 Mcg Inhaler] QUEtiapine [SEROquel] 100 mg PO HS 07/12/24 01/24/25 Tiotropium 2.5 Mcg/Puff [Spiriva 2 puff INHALATION RT-DAILY 07/12/24 01/24/25 Respimat 2.5 Mcg] traZODone HCL [Desyrel] 100 mg PO HS 07/12/24 01/24/25 Nicotine 21Mg/24Hr Patch [Habitrol] 1 patch TRANSDERM DAILY 09/07/24 01/24/25 Ferrous Sulfate [Iron (65 MG 325 mg PO DAILY 10/18/24 01/24/25 Elemental)] Propranolol [Inderal] 20 mg PO BID 10/18/24 01/24/25 HYDROcodone/APAP 5-325MG [[place] 1 tab PO BID PRN 11/13/24 01/24/25 5-325] Potassium Chloride ER [K-Dur 20] 20 meq PO Q2D 11/13/24 01/24/25 Gabapentin 300 mg PO TID 01/12/25 01/24/25 Nitrofurantoin Monohyd/M-Cryst 100 mg PO Q12HR 01/12/25 01/24/25 [Macrobid] Prochlorperazine [Compazine] 10 mg PO DAILY PRN 01/12/25 01/24/25 Sucralfate [Carafate] 1 gm PO ACHS 01/12/25 01/24/25 ondansetron HCL [Zofran] 8 mg PO Q12HR PRN 01/12/25 01/24/25 Previous Rx's Medication Instructions Recorded Pantoprazole Sodium [Protonix] 40 mg PO BID #60 tab 09/20/24 Acetaminophen Tab [Tylenol] 650 mg PO Q6HR PRN tab 01/15/25 Folic Acid 1 mg PO DAILY 90 Days #90 tab 01/15/25 Magnesium Oxide [Mag-Ox] 400 mg PO BID 90 Days #180 tab 01/15/25 Zinc Sulfate [Orazinc] 220 mg PO DAILY 90 Days #90 cap 01/15/25 oxyCODONE HCL [oxyCODONE HCL (IR)] 10 mg PO Q4H 3 Days #18 tab 03/30/25 Allergies Allergy/AdvReac Type Severity Reaction Status Date / Time latex Allergy Rash/Hives Verified 01/24/25 08:58 morphine AdvReac Itching Verified 01/24/25 08:58 Review of Systems ROS Statement: Those systems with pertinent positive or pertinent negative responses have been documented in the HPI. ROS Other: All systems not noted in ROS Statement are negative. Past Medical History Past Medical History: GERD/Reflux, Pulmonary Embolus (PE), Sleep [employer] ea/CPAP/BIPAP Additional Past Medical History / Comment(s): iron defiency anemia, pulmonary embolism 02/13/24 History of Any Multi-Drug Resistant Organisms: None Reported Past Surgical History: Bariatric Surgery, Section, Cholecystectomy, Tubal Ligation, Uterine Ablation Additional Past Surgical History / Comment(s): 2008 AND 2015 (c/s) and 2010 (cholecyst). 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 gastric bypass 06/11/24 Past Anesthesia/Blood Transfusion Reactions: No Reported Reaction Past Psychological History: Anxiety, Bipolar, Depression Smoking Status: Current some day smoker Past Alcohol Use History: None Reported Past Drug Use History: None Reported - Past Family History Mother Family Medical History: Asthma, COPD, Diabetes Mellitus, Hypertension Additional Family Medical History / Comment(s): depression, anxiety, sleep apnea, Father Family Medical History: Hypertension Additional Family Medical History / Comment(s): arthritis General Exam - General Exam Comments Initial Comments: PHYSICAL EXAM: General Impression: Alert and oriented x3, not in acute distress HEENT: Normocephalic atraumatic, extra-ocular movements intact, pupils equal and reactive to light bilaterally, mucous membranes moist. Cardiovascular: Heart regular rate and rhythm Chest: Able to complete full sentences, no retractions, no tachypnea Abdomen: abdomen soft, abdominal palpatory tenderness to the epigastrium and right upper quadrant, non-distended, no organomegaly Musculoskeletal: Pulses present and equal in all extremities, no peripheral edema Motor: no focal deficits noted Neurological: CN II-XII grossly intact, no focal motor or sensory deficits noted Skin: Intact with no visualized rashes Psych: Normal affect and mood Limitations: no limitations Course Vital Signs 03/30/25 03/30/25 18:01 19:58 Temperature 98.9 F Pulse Rate 110 H 113 H Respiratory 20 18 Rate Blood Pressure 105/70 111/84 O2 Sat by Pulse 100 Oximetry EKG Findings - EKG Comments: EKG Findings:: My EKG interpretation: Ventricular rate 112, sinus tachycardia,. 173, QRS 89, QTc 3 5. No AK prolongation, no QTC prolongation, no ST or T-wave changes noted. Overall, this EKG is unremarkable Medical Decision Making - Medical Decision Making Was pt. sent in by a medical professional or institution (Dr. PA, ICT DEVELOPER, urgent care, hospital, or [facility]...) When possible be specific @ -No Did you speak to anyone other than the patient for history (EMS, parent, family, police, friend...)? What history was obtained from this source @ -No Did you review nursing and triage notes (agree or disagree)? Why? @ -I reviewed and agree with nursing and triage notes Were old charts reviewed (outside hosp., previous admission, EMS record, old EKG, old radiological studies, urgent care reports/EKG's, [facility] records)? Report findings @ -No old charts were reviewed Differential Diagnosis (chest pain, altered mental status, abdominal pain women, abdominal pain men, vaginal bleeding, musculoskeletal, weakness, fever, dyspnea, syncope, headache, dizziness, GI bleed, back pain, seizure, CVA, palpatations, mental health)? @ -Differential Abdominal Pain Women: Appendicitis, Cholecystitis, diverticulosis, ischemic bowel, pancreatitis, hepatitis, UTI, gastroenteritis, AAA, incarcerated hernia, bowel obstruction, constipation, inflammatory bowel, hepatitis, peptic ulcer disease, splenic infarction, perforated viscus, vulvitis, ovarian torsion, PID, kidney stone, placenta abruption, this is not meant to be an all-inclusive list EKG interpreted by me (3pts min.). @ -None done X-rays interpreted by me (1pt min.). @ -None done CT interpreted by me (1pt min.). @ -None done U/S interpreted by me (1pt. min.). @ -None done What testing was considered but not performed or refused? (CT, X-rays, U/S, labs)? Why? @ -None What meds were considered but not given or refused? Why? @ -None Was smoking cessation discussed for >3mins.? @ -No Were there social determinants of health that impacted care today? How? (Homelessness, low income, unemployed, alcoholism, drug addiction, transportation, low edu. Level, literacy, decrease access to med. care, care home, rehab)? @ -No Was there de-escalation of care discussed even if they declined (Discuss DNR or withdrawal of care, Hospice)? DNR status @ -No What co-morbidities impacted this encounter? (DM, HTN, Smoking, COPD, CAD, Cancer, CVA, ARF, Chemo, Hep., AIDS, mental health diagnosis, sleep apnea, morbid obesity)? @ -Chronic abdominal pain Was patient admitted / discharged? Hospital course, mention meds given and r oute, prescriptions, significant lab abnormalities, going to OR and other pertinent info. @ -34-year-old female presents emergency department with acute on chronic abdominal pain associate with other GI symptoms. Vital signs stable. Patient is well-appearing in no acute distress. She does however have a tender abdomen. Laboratory evaluation is unremarkable. Patient given analgesics with sign ificant improvement of her symptoms. Disposition options were discussed with patient. She was agreeable for discharge. States that she ran out of her pain medication. Patient will be given short prescription for oxycodone which is what she normally takes. Otherwise given return precautions advised follow-up with primary care doctor. Did you discuss the management of the patient with other professionals (professionals i.e. , PA, ICT DEVELOPER, lab, RT, psych nurse, social services, install technician, teacher, administrative officer, case resource manager)? Give summary @ -No Was critical care preformed (if so, how long)? @ -No Undiagnosed new problem with uncertain prognosis? @ -No Drug Therapy requiring intensive monitoring for toxicity (Heparin, Nitro, Insulin, Cardizem)? @ -No Were any procedures done? @ -No Diagnosis/symptom? Acute, or Chronic, or Acute on Chronic? Uncomplicated (without systemic symptoms) or Complicated (systemic symptoms)? @ -Acute on chronic abdominal pain Side effects of treatment? @ -No Exacerbation, Progression, or Severe Exacerbation? @ -No Poses a threat to life or bodily function? How? (Chest pain, [place], SD, pneumonia, PE, COPD, DKA, ARF, appy, cholecystitis, CVA, Diverticulitis, Homicidal, Suicidal, threat to staff... and all critical care pts) @ -No - Lab Data Result diagrams: 03/30/25 19:56 03/30/25 19:56 Lab Results 03/30/25 03/30/25 Range/Units 19:56 19:56 WBC 12.48 H (4.50-10.00) 10*3/uL RBC 3.85 L (4.10-5.20) 10*6/uL Hgb 11.4 L (12.0-15.0) g/dL Hct 32.7 L (37.2-46.3) % MCV 84.9 (80.0-97.0) fL MCH 29.6 (27.0-32.0) pg MCHC 34.9 (32.0-37.0) g/dL Plt Count 273 (140-440) 10*3/uL MPV 12.0 (9.5-12.2) fL Immature Gran % (Auto) 0.3 % Neutrophils % 70.7 % Lymphocytes % 22.2 % Monocytes % 6.4 % Eosinophils % 0.2 % Basophils % 0.2 % Immature Gran # 0.04 (0.00-0.04) 10*3/uL Neutrophils # 8.82 H (1.80-7.70) 10*3/uL Lymphocytes # 2.77 (0.90-5.00) 10*3/uL Monocytes # 0.80 (0.20-1.00) 10*3/uL Eosinophils # 0.02 L (0.04-0.35) 10*3/uL Basophils # 0.03 (0.00-0.10) 10*3/uL Sodium 136 L (137-145) mmol/L Potassium 3.4 L (3.5-5.1) mmol/L Chloride 98 (98-107) mmol/L Carbon Dioxide 27 (22-30) mmol/L Anion Gap 11 mmol/L BUN 14 (7-17) mg/dL Creatinine 0.38 L (0.52-1.04) mg/dL Est GFR (CKD-EPI)AfAm >90 (>60 ml/min/1.73 sqM) Est GFR (CKD-EPI)NonAf >90 (>60 ml/min/1.73 sqM) Glucose 80 (74-99) mg/dL Calcium 9.3 (8.4-10.2) mg/dL Phosphorus 3.5 (2.5-4.5) mg/dL Magnesium 1.6 (1.6-2.3) mg/dL Total Bilirubin 0.6 (0.2-1.3) mg/dL AST 21 (14-36) U/L ALT 14 (4-34) U/L Alkaline Phosphatase 67 (38-126) U/L Total Protein 5.3 L (6.3-8.2) g/dL Albumin 2.8 L (3.5-5.0) g/dL Lipase 72 (23-300) U/L HCG, Quant <2.4 mIU/mL Disposition Clinical Impression: Abdominal pain Disposition: HOME SELF-CARE Condition: Fair Instructions (If sedation given, give patient instructions): Abdominal Pain (ED) Prescriptions: oxyCODONE HCL [oxyCODONE HCL (IR)] 10 mg PO Q4H 3 Days #18 tab Is patient prescribed a controlled substance at d/c from ED?: Yes If prescribed controlled substance>3 days was MAPS reviewed?: Prescribed <3 Days Referrals: Justin Molina MD [Primary Care Provider] - 1-2 days Time of Disposition: 20:35
[2025-03-30 20:01] LABS: Basophils # (A) 0.03 10*3/uL (0.00-0.10); Basophils % (A) 0.2 %; Eosinophils # (A) 0.02 10*3/uL (0.04-0.35); Eosinophils % (A) 0.2 %; HCT 32.7 % (37.2-46.3); HGB 11.4 g/dL (12.0-15.0); Lymphocytes # (A) 2.77 10*3/uL (0.90-5.00); Lymphocytes % (A) 22.2 %; MCH 29.6 pg (27.0-32.0); MCHC 34.9 g/dL (32.0-37.0); MCV 84.9 fL (80.0-97.0); Monocytes # (A) 0.80 10*3/uL (0.20-1.00); Monocytes % (A) 6.4 %; Neutrophils # (A) 8.82 10*3/uL (1.80-7.70); Neutrophils % (A) 70.7 %; Platelet Count 273 10*3/uL (140-440); RBC 3.85 10*6/uL (4.10-5.20); RDW 13.8 % (11.5-14.5); WBC 12.48 10*3/uL (4.50-10.00)
[2025-03-30 20:03] VITALS: RESP 18
[2025-03-30] MEDS: HYDROmorphone 1 MG/ML 1 ML SYRINGE IVP STA ×2 (20:03→21:26)
[2025-03-30] MEDS: SODIUM CHLORIDE 0.9% 1,000 ML IV STA (20:03)
[2025-03-30] MEDS: PANTOPRAZOLE 40 MG/10 ML VIAL IVP STA (20:04)
[2025-03-30 20:11] LABS: ALT 14 U/L (4-34); AST 21 U/L (14-36); African American GFR (CKD) >90 (>60 ml/min/1.73 sqM); Albumin 2.8 g/dL (3.5-5.0); Alkaline Phosphatase 67 U/L (38-126); Anion Gap 11 mmol/L; Blood Urea Nitrogen 14 mg/dL (7-17); Calcium 9.3 mg/dL (8.4-10.2); Carbon Dioxide 27 mmol/L (22-30); Chloride 98 mmol/L (98-107); Glucose 80 mg/dL (74-99); Lipase 72 U/L (23-300); Magnesium 1.6 mg/dL (1.6-2.3); Non-African American GFR(CKD) >90 (>60 ml/min/1.73 sqM); Potassium 3.4 mmol/L (3.5-5.1); Sodium 136 mmol/L (137-145); Total Protein 5.3 g/dL (6.3-8.2)
[2025-03-30 20:27] LABS: HCG,Quantitative Serum <2.4 mIU/mL
[2025-03-30 21:45] VITALS: BP 115/85; PULSE 92
== END 2025-03-30 21:43 | disposition home or self-care (01) ==
LOC: EC 17:59
DX: R10.11 Right upper quadrant pain (principal); G89.29 Other chronic pain; E43 Unspecified severe protein-calorie malnutrition; G89.18 Other acute postprocedural pain; F17.200 Nicotine dependence, unspecified, uncomplicated; Z88.5 Allergy status to narcotic agent; Z91.040 Latex allergy status
CPT/HCPCS: 36415; 93005; 80053; 83690; 83735; 84100; 85025; 84702; 99284; 96374; 96375; 96376; 96361; J1171; J2470

== ENCOUNTER 2025-04-01 05:00 | Emergency (ER) | payer OTHER ==
[2025-04-01 06:26] LABS: Basophils # (A) 0.05 10*3/uL (0.00-0.10); Basophils % (A) 0.4 %; Eosinophils # (A) 0.08 10*3/uL (0.04-0.35); Eosinophils % (A) 0.6 %; HCT 31.4 % (37.2-46.3); HGB 10.8 g/dL (12.0-15.0); Lymphocytes # (A) 2.71 10*3/uL (0.90-5.00); Lymphocytes % (A) 19.3 %; MCH 28.8 pg (27.0-32.0); MCHC 34.4 g/dL (32.0-37.0); MCV 83.7 fL (80.0-97.0); Monocytes # (A) 1.00 10*3/uL (0.20-1.00); Monocytes % (A) 7.1 %; Neutrophils # (A) 10.15 10*3/uL (1.80-7.70); Neutrophils % (A) 72.2 %; Platelet Count 238 10*3/uL (140-440); RBC 3.75 10*6/uL (4.10-5.20); RDW 13.7 % (11.5-14.5); WBC 14.04 10*3/uL (4.50-10.00)
[2025-04-01 06:38] LABS: ALT 16 U/L (4-34); AST 17 U/L (14-36); African American GFR (CKD) >90 (>60 ml/min/1.73 sqM); Albumin 2.8 g/dL (3.5-5.0); Alkaline Phosphatase 67 U/L (38-126); Amylase 48 U/L (30-110); Anion Gap 11 mmol/L; Blood Urea Nitrogen 13 mg/dL (7-17); Calcium 9.2 mg/dL (8.4-10.2); Carbon Dioxide 24 mmol/L (22-30); Chloride 104 mmol/L (98-107); Glucose 80 mg/dL (74-99); Lipase 135 U/L (23-300); Non-African American GFR(CKD) >90 (>60 ml/min/1.73 sqM); Potassium 3.1 mmol/L (3.5-5.1); Sodium 139 mmol/L (137-145); Total Protein 5.3 g/dL (6.3-8.2)
--- NOTE | 2025-04-01 07:21 | ED ---
Abdominal Pain HPI - General Source: patient Mode of arrival: wheelchair Limitations: no limitations - History of Present Illness MD Complaint: abdominal pain -: hour(s) Location: LUQ, RUQ Radiation: none Migration to: no migration Severity: moderate Quality: cramping, aching Consistency: constant Improves With: nothing Worsens With: nothing Associated Symptoms: nausea, vomiting <Enio Parra - Last Filed: 04/01/25 07:25> <Lalit Arredondo - Last Filed: 04/01/25 10:40> - General Chief Complaint: Abdominal Pain Stated Complaint: Vomiting, numbness in hands and feet Time Seen by Provider: 04/01/25 05:23 - History of Present Illness Initial Comments: This patient is a 34-year-old woman with history of previous gastric bypass surgery, here with complaint that she is having upper abdominal pain, nausea and vomiting that recurred this morning. She states she is not tolerating oral intake now. She states she does get frequent episodes similar to this and states that she usually needs to come the hospital and get IV fluids and pain medication. She has not had fever or chills. She is not having any hematemesis or coffee-ground emesis. No change in bowel movements. (Enio Parra) - Related Data Home Medications Medication Instructions Recorded Confirmed Budesonide/Formoterol Fumarate 2 puff INHALATION RT-BID 07/12/24 01/24/25 [Symbicort 160-4.5 Mcg Inhaler] QUEtiapine [SEROquel] 100 mg PO HS 07/12/24 01/24/25 Tiotropium 2.5 Mcg/Puff [Spiriva 2 puff INHALATION RT-DAILY 07/12/24 01/24/25 Respimat 2.5 Mcg] traZODone HCL [Desyrel] 100 mg PO HS 07/12/24 01/24/25 Nicotine 21Mg/24Hr Patch [Habitrol] 1 patch TRANSDERM DAILY 09/07/24 01/24/25 Ferrous Sulfate [Iron (65 MG 325 mg PO DAILY 10/18/24 01/24/25 Elemental)] Propranolol [Inderal] 20 mg PO BID 10/18/24 01/24/25 HYDROcodone/APAP 5-325MG [[place] 1 tab PO BID PRN 11/13/24 01/24/25 5-325] Potassium Chloride ER [K-Dur 20] 20 meq PO Q2D 11/13/24 01/24/25 Gabapentin 300 mg PO TID 01/12/25 01/24/25 Nitrofurantoin Monohyd/M-Cryst 100 mg PO Q12HR 01/12/25 01/24/25 [Macrobid] Prochlorperazine [Compazine] 10 mg PO DAILY PRN 01/12/25 01/24/25 Sucralfate [Carafate] 1 gm PO ACHS 01/12/25 01/24/25 ondansetron HCL [Zofran] 8 mg PO Q12HR PRN 01/12/25 01/24/25 Previous Rx's Medication Instructions Recorded Pantoprazole Sodium [Protonix] 40 mg PO BID #60 tab 09/20/24 Acetaminophen Tab [Tylenol] 650 mg PO Q6HR PRN tab 01/15/25 Folic Acid 1 mg PO DAILY 90 Days #90 tab 01/15/25 Magnesium Oxide [Mag-Ox] 400 mg PO BID 90 Days #180 tab 01/15/25 Zinc Sulfate [Orazinc] 220 mg PO DAILY 90 Days #90 cap 01/15/25 oxyCODONE HCL [oxyCODONE HCL (IR)] 10 mg PO Q4H 3 Days #18 tab 03/30/25 Cephalexin [Keflex] 500 mg PO Q12HR 7 Days #14 cap 04/01/25 Allergies Allergy/AdvReac Type Severity Reaction Status Date / Time latex Allergy Rash/Hives Verified 04/01/25 05:10 morphine AdvReac Itching Verified 04/01/25 05:10 Review of Systems ROS Other: All systems not noted in ROS Statement are negative. Constitutional: Denies: fever, chills, weakness Respiratory: Denies: cough, dyspnea Cardiovascular: Denies: chest pain, palpitations, edema Gastrointestinal: Reports: abdominal pain, nausea, vomiting. Denies: diarrhea, constipation, melena, hematochezia Genitourinary: Denies: dysuria, hematuria Musculoskeletal: Denies: back pain Skin: Denies: rash Neurological: Denies: headache, weakness <Enio Parra - Last Filed: 04/01/25 07:25> ROS Other: All systems not noted in ROS Statement are negative. <Lalit Arredondo - Last Filed: 04/01/25 10:40> ROS Statement: Those systems with pertinent positive or pertinent negative responses have been documented in the HPI. Past Medical History Past Medical History: GERD/Reflux, Pulmonary Embolus (PE), Sleep Apnea/CPAP/BIPAP Additional Past Medical History / Comment(s): iron defiency anemia, pulmonary embolism 02/13/24 History of Any Multi-Drug Resistant Organisms: None Reported Past Surgical History: Bariatric Surgery, Section, Cholecystectomy, Tubal Ligation, Uterine Ablation Additional Past Surgical History / Comment(s): 2008 AND 2015 (c/s) and 2010 (cholecyst). 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 gastric bypass 06/11/24 Past Anesthesia/Blood Transfusion Reactions: No Reported Reaction Past Psychological History: Anxiety, Bipolar, Depression Smoking Status: Current some day smoker Past Alcohol Use History: None Reported Past Drug Use History: None Reported - Past Family History Mother Family Medical History: Asthma, COPD, Diabetes Mellitus, Hypertension Additional Family Medical History / Comment(s): depression, anxiety, sleep apnea, Father Family Medical History: Hypertension Additional Family Medical History / Comment(s): arthritis <Enio Parra - Last Filed: 04/01/25 07:25> General Exam Limitations: no limitations General appearance: alert, in no apparent distress Head exam: Present: atraumatic, normocephalic Eye exam: Present: normal appearance. Absent: scleral icterus, conjunctival injection ENT exam: Present: normal oropharynx Neck exam: Present: normal inspection Respiratory exam: Present: normal lung sounds bilaterally. Absent: respiratory distress, wheezes, rales, rhonchi, stridor, accessory muscle use Cardiovascular Exam: Present: regular rate, normal rhythm, normal heart sounds. Absent: systolic murmur, diastolic murmur, rubs, gallop GI/Abdominal exam: Present: soft. Absent: distended, tenderness, guarding, rebound, rigid, mass, pulsatile mass, hernia Extremities exam: Present: normal inspection, normal capillary refill. Absent: pedal edema Back exam: Present: normal inspection. Absent: CVA tenderness (R), CVA tenderness (L) Neurological exam: Present: alert Skin exam: Present: warm, dry, intact, normal color. Absent: rash <Enio Parra - Last Filed: 04/01/25 07:25> Course Vital Signs 04/01/25 04/01/25 05:11 08:44 Temperature 98 F Pulse Rate 125 H 120 H Respiratory 22 18 Rate Blood Pressure 111/77 113/73 O2 Sat by Pulse 100 100 Oximetry Medical Decision Making - Lab Data Result diagrams: 04/01/25 06:16 04/01/25 06:16 <Enio Parra - Last Filed: 04/01/25 07:25> - Lab Data Result diagrams: 04/01/25 06:16 04/01/25 06:16 <Lalit Arredondo - Last Filed: 04/01/25 10:40> - Medical Decision Making 34-year-old female presents emergency department complaining of abdominal pain. Seen by previous provider. Is well-known to our emergency department. Labs up until this point show mild hypokalemia 3.1. Slight leukocytosis of 14. This is likely reactive. Urinalysis remarkable for findings consistent with early UTI. On reevaluation, patient is feeling improved. She will receive a 1 L fluid bolus and I will supplement her potassium as well as start her on antibiotics for her UTI. She was in agreement this plan. Instructed follow-up with her PCP and GI specialist outpatient. I will provide the patient with a prescription for Keflex, Zofran ODT. I instructed the patient to follow up with their PCP in the next 1-3 days.. I explained that the patient should return to the emergency department if they experience any worsening symptoms. Strict return precautions were discussed with the patient. The patient expressed understanding of these instructions. I answered all questions that the patient had. The patient was discharged home in good condition with their prescriptions and follow up information. Diagnosis/symptom? @ -Chronic abdominal pain, UTI, hypokalemia Acute, or Chronic, or Acute on Chronic? @ -Acute Uncomplicated (without systemic symptoms) or Complicated (systemic symptoms)? @ -Uncomplicated Side effects of treatment? @ -None Exacerbation, Progression, or Severe Exacerbation] @ -No Poses a threat to life or bodily function? @ -Unlikely at this time (Lalit Arredondo) - Lab Data Lab Results 04/01/25 04/01/25 04/01/25 Range/Units 06:16 06:16 06:16 WBC 14.04 H (4.50-10.00) 10*3/uL RBC 3.75 L (4.10-5.20) 10*6/uL Hgb 10.8 L (12.0-15.0) g/dL Hct 31.4 L (37.2-46.3) % MCV 83.7 (80.0-97.0) fL MCH 28.8 (27.0-32.0) pg MCHC 34.4 (32.0-37.0) g/dL Plt Count 238 (140-440) 10*3/uL MPV 12.0 (9.5-12.2) fL Immature Gran % (Auto) 0.4 % Neutrophils % 72.2 % Lymphocytes % 19.3 % Monocytes % 7.1 % Eosinophils % 0.6 % Basophils % 0.4 % Immature Gran # 0.05 H (0.00-0.04) 10*3/uL Neutrophils # 10.15 H (1.80-7.70) 10*3/uL Lymphocytes # 2.71 (0.90-5.00) 10*3/uL Monocytes # 1.00 (0.20-1.00) 10*3/uL Eosinophils # 0.08 (0.04-0.35) 10*3/uL Basophils # 0.05 (0.00-0.10) 10*3/uL Sodium 139 (137-145) mmol/L Potassium 3.1 L (3.5-5.1) mmol/L Chloride 104 (98-107) mmol/L Carbon Dioxide 24 (22-30) mmol/L Anion Gap 11 mmol/L BUN 13 (7-17) mg/dL Creatinine 0.38 L (0.52-1.04) mg/dL Est GFR (CKD-EPI)AfAm >90 (>60 ml/min/1.73 sqM) Est GFR (CKD-EPI)NonAf >90 (>60 ml/min/1.73 sqM) Glucose 80 (74-99) mg/dL Plasma Lactic Acid Case 0.7 (0.7-2.0) mmol/L Calcium 9.2 (8.4-10.2) mg/dL Total Bilirubin 0.6 (0.2-1.3) mg/dL AST 17 (14-36) U/L ALT 16 (4-34) U/L Alkaline Phosphatase 67 (38-126) U/L Total Protein 5.3 L (6.3-8.2) g/dL Albumin 2.8 L (3.5-5.0) g/dL Amylase 48 (30-110) U/L Lipase 135 (23-300) U/L Urine Color Urine Appearance (Clear) Urine pH (5.0-8.0) Ur Specific [place] (1.001-1.035) Urine Protein (Negative) Urine Glucose (UA) (Negative) Urine Ketones (Negative) Urine Blood (Negative) Urine Nitrite (Negative) Urine Bilirubin (Negative) Urine Urobilinogen (<2.0) mg/dL Ur Leukocyte Esterase (Negative) Urine RBC (0-5) /hpf Urine WBC (0-5) /hpf Ur Squamous Epith Cells (0-4) /hpf Calcium Oxalate Crystal (None) /hpf Urine Mucus (None) /hpf Urine HCG, Qual (Not Detectd) 04/01/25 04/01/25 Range/Units 08:41 08:41 WBC (4.50-10.00) 10*3/uL RBC (4.10-5.20) 10*6/uL Hgb (12.0-15.0) g/dL Hct (37.2-46.3) % MCV (80.0-97.0) fL MCH (27.0-32.0) pg MCHC (32.0-37.0) g/dL Plt Count (140-440) 10*3/uL MPV (9.5-12.2) fL Immature Gran % (Auto) % Neutrophils % % Lymphocytes % % Monocytes % % Eosinophils % % Basophils % % Immature Gran # (0.00-0.04) 10*3/uL Neutrophils # (1.80-7.70) 10*3/uL Lymphocytes # (0.90-5.00) 10*3/uL Monocytes # (0.20-1.00) 10*3/uL Eosinophils # (0.04-0.35) 10*3/uL Basophils # (0.00-0.10) 10*3/uL Sodium (137-145) mmol/L Potassium (3.5-5.1) mmol/L Chloride (98-107) mmol/L Carbon Dioxide (22-30) mmol/L Anion Gap mmol/L BUN (7-17) mg/dL Creatinine (0.52-1.04) mg/dL Est GFR (CKD-EPI)AfAm (>60 ml/min/1.73 sqM) Est GFR (CKD-EPI)NonAf (>60 ml/min/1.73 sqM) Glucose (74-99) mg/dL Plasma Lactic Acid Case (0.7-2.0) mmol/L Calcium (8.4-10.2) mg/dL Total Bilirubin (0.2-1.3) mg/dL AST (14-36) U/L ALT (4-34) U/L Alkaline Phosphatase (38-126) U/L Total Protein (6.3-8.2) g/dL Albumin (3.5-5.0) g/dL Amylase (30-110) U/L Lipase (23-300) U/L Urine Color Yellow Urine Appearance Cloudy H (Clear) Urine pH 6.5 (5.0-8.0) Ur Specific [place] 1.027 (1.001-1.035) Urine Protein 1+ H (Negative) Urine Glucose (UA) Negative (Negative) Urine Ketones 1+ H (Negative) Urine Blood Negative (Negative) Urine Nitrite Negative (Negative) Urine Bilirubin 1+ H (Negative) Urine Urobilinogen 4.0 (<2.0) mg/dL Ur Leukocyte Esterase Large H (Negative) Urine RBC 4 (0-5) /hpf Urine WBC 41 H (0-5) /hpf Ur Squamous Epith Cells 3 (0-4) /hpf Calcium Oxalate Crystal Rare H (None) /hpf Urine Mucus Many H (None) /hpf Urine HCG, Qual Not Detected (Not Detectd) Disposition <Enio Parra - Last Filed: 04/01/25 07:25> Is patient prescribed a controlled substance at d/c from ED?: No Time of Disposition: 10:29 <Lalit Arredondo - Last Filed: 04/01/25 10:40> Clinical Impression: UTI (urinary tract infection), Chronic abdominal pain, Hypokalemia Disposition: HOME SELF-CARE Condition: Good Instructions (If sedation given, give patient instructions): Urinary Tract Infection in Women (ED) Prescriptions: Cephalexin [Keflex] 500 mg PO Q12HR 7 Days #14 cap Referrals: Justin Molina MD [Primary Care Provider] - 1-2 days
[2025-04-01 08:45] VITALS: RESP 18
[2025-04-01] MEDS: SODIUM CHLORIDE 0.9% 1,000 ML IV ONE (08:45)
[2025-04-01] MEDS: ONDANSETRON 4 MG/2 ML VIAL IVP STA (08:46)
[2025-04-01] MEDS: HYDROmorphone 0.5 MG/0.5 ML SYRINGE IVP STA ×2 (08:48→10:45)
[2025-04-01 09:05] LABS: Bilirubin,Urine 1+ (Negative); Blood,Urine Negative (Negative); Calcium Oxalate Crystals,Urine Rare /hpf; Color,Urine Yellow; Glucose,Urine (UA) Negative (Negative); Ketones,Urine 1+ (Negative); Leukocyte Esterase,Urine Large (Negative); Mucus,Urine Many /hpf; Nitrite,Urine Negative (Negative); PH, Urine 6.5 (5.0-8.0); Protein,Urine 1+ (Negative); RBC,Urine 4 /hpf (0-5); Specific Gravity,Urine 1.027 (1.001-1.035); Squamous Epithelial Cell,Urine 3 /hpf (0-4); Urobilinogen,Urine 4.0 mg/dL (<2.0); WBC,Urine 41 /hpf (0-5)
[2025-04-01] MEDS: cefTRIAXone IN SWFI 1,000 MG/10 ML SYRINGE IVP STA (10:44)
[2025-04-01] MEDS: ONDANSETRON 4 MG ODT STARTER PACK TAB BTL PO STA (10:45)
[2025-04-01] MEDS: POTASSIUM CHLORIDE ER 20 MEQ TAB.ER PO STA (10:45)
[2025-04-01 10:48] VITALS: BP 110/82; PULSE 110; TEMP 98.9
== END 2025-04-01 10:55 | disposition home or self-care (01) ==
LOC: EC 05:00
DX: G89.29 Other chronic pain (principal); R10.12 Left upper quadrant pain; R10.11 Right upper quadrant pain; N39.0 Urinary tract infection, site not specified; E87.6 Hypokalemia; F17.200 Nicotine dependence, unspecified, uncomplicated; Z91.040 Latex allergy status; Z88.5 Allergy status to narcotic agent
CPT/HCPCS: 36415; 80053; 82150; 83605; 83690; 85025; 81001; 81025; 87086; 99284; 96374; 96375 ×2; 96376; 96361; J2405; J0696; S0119; J1171

== ENCOUNTER 2025-04-02 02:41 | Emergency (ER) | payer OTHER ==
[2025-04-02 02:44] VITALS: TEMP 98.5
[2025-04-02] MEDS: SODIUM CHLORIDE 0.9% 1,000 ML IV ONE (03:25)
[2025-04-02] MEDS: ONDANSETRON 4 MG/2 ML VIAL IVP STA (03:26)
[2025-04-02] MEDS: HYDROmorphone 0.5 MG/0.5 ML SYRINGE IVP STA ×2 (03:26→04:58)
--- NOTE | 2025-04-02 03:30 | ED ---
Abdominal Pain HPI - General Source: patient Mode of arrival: EMS Limitations: no limitations <Tricia Trujillo - Last Filed: 04/02/25 07:05> <Enio Parra - Last Filed: 04/02/25 08:33> - General Chief Complaint: Abdominal Pain Stated Complaint: Abdominal Pain Time Seen by Provider: 04/02/25 02:58 - History of Present Illness Initial Comments: 34-year-old female with GERD, TERESO, sleep apnea, anxiety, bipolar disorder, depression, current daily smoker, history of sleeve gastrectomy and gastric bypass in 2023 here for abdominal pain. Patient reported about 2 hours ago she had acute severe abdominal pain that was sharp worse at the right upper quadrant with associated nausea and nonbloody nonbilious vomiting. She was recently admitted for the same complaint and reported that after discharge she started to have worsening abdominal pain that became intolerable which led her to seek care. Denied fever, chills, diarrhea, hematemesis, abd distension, skin changes, shortness of breath, chest pain, palpitation. (Tricia Trujillo) - Related Data Home Medications Medication Instructions Recorded Confirmed Budesonide/Formoterol Fumarate 2 puff INHALATION RT-BID 07/12/24 01/24/25 [Symbicort 160-4.5 Mcg Inhaler] QUEtiapine [SEROquel] 100 mg PO HS 07/12/24 01/24/25 Tiotropium 2.5 Mcg/Puff [Spiriva 2 puff INHALATION RT-DAILY 07/12/24 01/24/25 Respimat 2.5 Mcg] traZODone HCL [Desyrel] 100 mg PO HS 07/12/24 01/24/25 Nicotine 21Mg/24Hr Patch [Habitrol] 1 patch TRANSDERM DAILY 09/07/24 01/24/25 Ferrous Sulfate [Iron (65 MG 325 mg PO DAILY 10/18/24 01/24/25 Elemental)] Propranolol [Inderal] 20 mg PO BID 10/18/24 01/24/25 HYDROcodone/APAP 5-325MG [[place] 1 tab PO BID PRN 11/13/24 01/24/25 5-325] Potassium Chloride ER [K-Dur 20] 20 meq PO Q2D 11/13/24 01/24/25 Gabapentin 300 mg PO TID 01/12/25 01/24/25 Nitrofurantoin Monohyd/M-Cryst 100 mg PO Q12HR 01/12/25 01/24/25 [Macrobid] Prochlorperazine [Compazine] 10 mg PO DAILY PRN 01/12/25 01/24/25 Sucralfate [Carafate] 1 gm PO ACHS 01/12/25 01/24/25 ondansetron HCL [Zofran] 8 mg PO Q12HR PRN 01/12/25 01/24/25 Previous Rx's Medication Instructions Recorded Pantoprazole Sodium [Protonix] 40 mg PO BID #60 tab 09/20/24 Acetaminophen Tab [Tylenol] 650 mg PO Q6HR PRN tab 01/15/25 Folic Acid 1 mg PO DAILY 90 Days #90 tab 01/15/25 Magnesium Oxide [Mag-Ox] 400 mg PO BID 90 Days #180 tab 01/15/25 Zinc Sulfate [Orazinc] 220 mg PO DAILY 90 Days #90 cap 01/15/25 oxyCODONE HCL [oxyCODONE HCL (IR)] 10 mg PO Q4H 3 Days #18 tab 03/30/25 Cephalexin [Keflex] 500 mg PO Q12HR 7 Days #14 cap 04/01/25 Allergies Allergy/AdvReac Type Severity Reaction Status Date / Time latex Allergy Rash/Hives Verified 04/02/25 02:44 morphine AdvReac Itching Verified 04/02/25 02:44 Review of Systems ROS Other: All systems not noted in ROS Statement are negative. <Tricia Trujillo - Last Filed: 04/02/25 07:05> ROS Other: All systems not noted in ROS Statement are negative. <Enio Parra - Last Filed: 04/02/25 08:33> ROS Statement: Those systems with pertinent positive or pertinent negative responses have been documented in the HPI. Past Medical History Past Medical History: GERD/Reflux, Pulmonary Embolus (PE), Sleep Apnea/CPAP/ BIPAP Additional Past Medical History / Comment(s): iron defiency anemia, pulmonary embolism 02/13/24 History of Any Multi-Drug Resistant Organisms: None Reported Past Surgical History: Bariatric Surgery, Section, Cholecystectomy, Tubal Ligation, Uterine Ablation Additional Past Surgical History / Comment(s): 2008 AND 2015 (c/s) and 2010 (cholecyst). 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 gastric bypass 06/11/24 Past Anesthesia/Blood Transfusion Reactions: No Reported Reaction Past Psychological History: Anxiety, Bipolar, Depression Smoking Status: Current some day smoker Past Alcohol Use History: None Reported Past Drug Use History: None Reported - Past Family History Mother Family Medical History: Asthma, COPD, Diabetes Mellitus, Hypertension Additional Family Medical History / Comment(s): depression, anxiety, sleep apnea, Father Family Medical History: Hypertension Additional Family Medical History / Comment(s): arthritis <Tricia Trujillo - Last Filed: 04/02/25 07:05> General Exam Limitations: no limitations <Tricia Trujillo - Last Filed: 04/02/25 07:05> - General Exam Comments Initial Comments: Physical examination: Vital signs reviewed General: non toxic, slight distress, appears at stated age Head: atraumatic, normocephalic, symmetric Mouth: no lip lesion, mucus membranes moist Cardiovascular: S1S2 reg, no murmur Lungs: CTA bilateral, no rhonchi, no rales, no accessory muscle use Abdominal: soft, nondistended, tenderness to palpation worse on the right upper quadrant, right lower quadrant and left lower quadrant, no guarding, bowel sounds appreciated Ext: muscle strength 5 out of 5 in all 4 extremities grossly, no gross muscle atrophy, no contractures, positive dorsalis pedis pulse bilateral, no edema Neuro: no gross focal neuro deficits Psych: Alert and oriented x3, appropriate affect and mood (Tricia Trujillo) Course Vital Signs 04/02/25 04/02/25 04/02/25 02:43 04:54 06:57 Temperature 98.5 F Pulse Rate 89 92 98 Respiratory 18 16 16 Rate Blood Pressure 131/99 124/96 115/84 O2 Sat by Pulse 98 97 99 Oximetry Medical Decision Making - Lab Data Result diagrams: 04/02/25 03:15 04/02/25 03:15 <Tricia Trujillo - Last Filed: 04/02/25 07:05> - Lab Data Result diagrams: 04/02/25 03:15 04/02/25 03:15 <Enio Parra - Last Filed: 04/02/25 08:33> - Medical Decision Making Was pt. sent in by a medical professional or institution (Dr., PA, PACKAGING INSPECTOR, urgent care, hospital, or group home...) When possible be specific @ -No Did you speak to anyone other than the patient for history (EMS, parent, family, police, friend...)? What history was obtained from this source @ -No Did you review nursing and triage notes (agree or disagree)? Why? @ -I reviewed and agree with nursing and triage notes Were old charts reviewed (outside hosp., previous admission, EMS record, old EKG, old radiological studies, urgent care reports/EKG's, group home records)? Report findings @ -Old charts reviewed Differential Diagnosis? @ -Differential Abdominal Pain Women: Appendicitis, Cholecystitis, diverticulosis, ischemic bowel, pancreatitis, hepatitis, UTI, gastroenteritis, AAA, incarcerated hernia, bowel obstruction, constipation, inflammatory bowel, hepatitis, peptic ulcer disease, splenic infarction, perforated viscus, vulvitis, ovarian torsion, PID, kidney stone, placenta abruption, this is not meant to be an all-inclusive list EKG interpreted by me (3pts min.). @ -[As above] X-rays interpreted by me (1pt min.). @ -[None done] CT interpreted by me (1pt min.). @ -[None done] U/S interpreted by me (1pt. min.). @ -[None done] What testing was considered but not performed or refused? (CT, X-rays, U/S, labs)? Why? @ -[None] What meds were considered but not given or refused? Why? @ -[None] Did you discuss the management of the patient with other professionals (professionals i.e. STEPHY Wild, PACKAGING INSPECTOR, lab, RT, psych nurse, marriage and family social worker, house worker general, teacher, biological technical officer, lead case manager)? Give summary @ -Dr. Parra, supervising physician Was smoking cessation discussed for >3mins.? @ -[No] Was critical care preformed (if so, how long)? @ -[No] Were there social determinants of health that impacted care today? How? (Homelessness, low income, unemployed, alcoholism, drug addiction, dnoald sportation, low edu. Level, literacy, decrease access to med. care, skilled nursing, rehab)? @ -[No] Was there de-escalation of care discussed even if they declined (Discuss DNR or withdrawal of care, Hospice)? DNR status @ -[No] What co-morbidities impacted this encounter? (DM, HTN, Smoking, COPD, CAD, Cancer, CVA, ARF, Chemo, Hep., AIDS, mental health diagnosis, sleep apnea, morbid obesity)? @ -[None] Was patient admitted / discharged? Hospital course, mention meds given and route, prescriptions, significant lab abnormalities, going to OR and other pertinent info. @ -[hospital course] IV fluid bolus, IV pain medications and IV antiemetic given. Undiagnosed new problem with uncertain prognosis? @ -[No] Drug Therapy requiring intensive monitoring for toxicity (Heparin, Nitro, Insulin, Cardizem)? @ -[No] Were any procedures done? @ -[No] Diagnosis/symptom? @ -[default] Acute, or Chronic, or Acute on Chronic? @ -Acute Uncomplicated (without systemic symptoms) or Complicated (systemic symptoms)? @ -[default] Side effects of treatment? @ -[No] Exacerbation, Progression, or Severe Exacerbation? @ -Exacerbation Poses a threat to life or bodily function? How? (Chest pain, [place], [place], pneumonia, PE, COPD, DKA, ARF, appy, cholecystitis, CVA, Diverticulitis, Homicidal, Suicidal, threat to staff... and all critical care pts) @ -[No] Signed out patient to Dr. Parra at end of shift 07 (Tricia Trujillo) - Lab Data Lab Results 04/02/25 04/02/25 Range/Units 03:15 03:15 WBC 12.39 H (4.50-10.00) 10*3/uL RBC 4.04 L (4.10-5.20) 10*6/uL Hgb 11.8 L (12.0-15.0) g/dL Hct 34.6 L (37.2-46.3) % MCV 85.6 (80.0-97.0) fL MCH 29.2 (27.0-32.0) pg MCHC 34.1 (32.0-37.0) g/dL Plt Count 211 (140-440) 10*3/uL MPV 12.9 H (9.5-12.2) fL Immature Gran % (Auto) 0.2 % Neutrophils % 69.9 % Lymphocytes % 22.0 % Monocytes % 6.8 % Eosinophils % 0.8 % Basophils % 0.3 % Immature Gran # 0.03 (0.00-0.04) 10*3/uL Neutrophils # 8.66 H (1.80-7.70) 10*3/uL Lymphocytes # 2.72 (0.90-5.00) 10*3/uL Monocytes # 0.84 (0.20-1.00) 10*3/uL Eosinophils # 0.10 (0.04-0.35) 10*3/uL Basophils # 0.04 (0.00-0.10) 10*3/uL Immature Plt Fraction 9.0 H (1.1-6.1) % Sodium 136 L (137-145) mmol/L Potassium 5.1 (3.5-5.1) mmol/L Chloride 106 (98-107) mmol/L Carbon Dioxide 23 (22-30) mmol/L Anion Gap 7 mmol/L BUN 10 (7-17) mg/dL Creatinine 0.31 L (0.52-1.04) mg/dL Est GFR (CKD-EPI)AfAm >90 (>60 ml/min/1.73 sqM) Est GFR (CKD-EPI)NonAf >90 (>60 ml/min/1.73 sqM) Glucose 90 (74-99) mg/dL Calcium 9.4 (8.4-10.2) mg/dL Total Bilirubin 1.1 (0.2-1.3) mg/dL AST 41 H (14-36) U/L ALT 18 (4-34) U/L Alkaline Phosphatase 61 (38-126) U/L Total Protein 6.2 L (6.3-8.2) g/dL Albumin 3.2 L (3.5-5.0) g/dL Amylase 58 (30-110) U/L Lipase 80 (23-300) U/L Disposition <Tricia Trujillo - Last Filed: 04/02/25 07:05> Is patient prescribed a controlled substance at d/c from ED?: No <Enio Parra - Last Filed: 04/02/25 08:33> Clinical Impression: Abdominal pain Disposition: HOME SELF-CARE Condition: Good Instructions (If sedation given, give patient instructions): Abdominal Pain (ED) Referrals: Mullally,Justin, MD [Primary Care Provider] - 1-2 days
[2025-04-02 03:35] LABS: Basophils # (A) 0.04 10*3/uL (0.00-0.10); Basophils % (A) 0.3 %; Eosinophils # (A) 0.10 10*3/uL (0.04-0.35); Eosinophils % (A) 0.8 %; HCT 34.6 % (37.2-46.3); HGB 11.8 g/dL (12.0-15.0); Immature Platelet Fraction 9.0 % (1.1-6.1); Lymphocytes # (A) 2.72 10*3/uL (0.90-5.00); Lymphocytes % (A) 22.0 %; MCH 29.2 pg (27.0-32.0); MCHC 34.1 g/dL (32.0-37.0); MCV 85.6 fL (80.0-97.0); Monocytes # (A) 0.84 10*3/uL (0.20-1.00); Monocytes % (A) 6.8 %; Neutrophils # (A) 8.66 10*3/uL (1.80-7.70); Neutrophils % (A) 69.9 %; Platelet Count 211 10*3/uL (140-440); RBC 4.04 10*6/uL (4.10-5.20); RDW 14.3 % (11.5-14.5); WBC 12.39 10*3/uL (4.50-10.00)
[2025-04-02 03:39] LABS: ALT 18 U/L (4-34); AST 41 U/L (14-36); African American GFR (CKD) >90 (>60 ml/min/1.73 sqM); Albumin 3.2 g/dL (3.5-5.0); Alkaline Phosphatase 61 U/L (38-126); Amylase 58 U/L (30-110); Anion Gap 7 mmol/L; Blood Urea Nitrogen 10 mg/dL (7-17); Calcium 9.4 mg/dL (8.4-10.2); Carbon Dioxide 23 mmol/L (22-30); Chloride 106 mmol/L (98-107); Glucose 90 mg/dL (74-99); Lipase 80 U/L (23-300); Non-African American GFR(CKD) >90 (>60 ml/min/1.73 sqM); Sodium 136 mmol/L (137-145); Total Protein 6.2 g/dL (6.3-8.2)
[2025-04-02 03:45] LABS: Potassium 5.1 mmol/L (3.5-5.1)
[2025-04-02 04:55] VITALS: RESP 16
[2025-04-02] MEDS: METOCLOPRAMIDE 5 MG/ML 2 ML VIAL IVP STA (06:33)
[2025-04-02] MEDS: HYDROmorphone 1 MG/ML 1 ML SYRINGE IVP STA (07:00)
[2025-04-02 08:42] VITALS: BP 118/65; PULSE 78
== END 2025-04-02 08:46 | disposition home or self-care (01) ==
LOC: EC 02:41
DX: R10.11 Right upper quadrant pain (principal); F17.200 Nicotine dependence, unspecified, uncomplicated; Z88.5 Allergy status to narcotic agent; Z91.040 Latex allergy status
CPT/HCPCS: 36415; 80053; 82150; 83690; 85025; 99285; 96374; 96375; 96376; 96361; J2765; J2405; J1171 ×2

== ENCOUNTER 2025-04-04 21:21 | Emergency (ER) | payer OTHER ==
--- NOTE | 2025-04-04 21:26 | ED ---
General Adult HPI - General Chief complaint: Abdominal Pain Stated complaint: Pain all over Time Seen by Provider: 04/04/25 21:23 Source: patient Mode of arrival: EMS - History of Present Illness Initial comments: Dictation was produced using [employer] dictation software. please excuse any grammatical, word or spelling errors. Chief Complaint: 34-year-old female with history of malnutrition and chronic abdominal pain presents to the emergency department with total body pain History of Present Illness: Patient 34-year-old female. There is concern that patient is suffering from opiate use disorder. Presents to the emergency department for total body pain. Patient states her whole body hurts from head to toe. She states that she has low-grade subjective fever. Denies any chills or night sweats. No obvious sick contacts. No sore throat cough runny nose, diarrhea or rash. The ROS documented in this emergency department record has been reviewed and confirmed by me. Those systems with pertinent positive or negative responses have been documented in the HPI. All other systems are other negative and/or noncontributory. - Related Data Home Medications Medication Instructions Recorded Confirmed Budesonide/Formoterol Fumarate 2 puff INHALATION RT-BID 07/12/24 01/24/25 [Symbicort 160-4.5 Mcg Inhaler] QUEtiapine [SEROquel] 100 mg PO HS 07/12/24 01/24/25 Tiotropium 2.5 Mcg/Puff [Spiriva 2 puff INHALATION RT-DAILY 07/12/24 01/24/25 Respimat 2.5 Mcg] traZODone HCL [Desyrel] 100 mg PO HS 07/12/24 01/24/25 Nicotine 21Mg/24Hr Patch [Habitrol] 1 patch TRANSDERM DAILY 09/07/24 01/24/25 Ferrous Sulfate [Iron (65 MG 325 mg PO DAILY 10/18/24 01/24/25 Elemental)] Propranolol [Inderal] 20 mg PO BID 10/18/24 01/24/25 HYDROcodone/APAP 5-325MG [[place] 1 tab PO BID PRN 11/13/24 01/24/25 5-325] Potassium Chloride ER [K-Dur 20] 20 meq PO Q2D 11/13/24 01/24/25 Gabapentin 300 mg PO TID 01/12/25 01/24/25 Nitrofurantoin Monohyd/M-Cryst 100 mg PO Q12HR 01/12/25 01/24/25 [Macrobid] Prochlorperazine [Compazine] 10 mg PO DAILY PRN 01/12/25 01/24/25 Sucralfate [Carafate] 1 gm PO ACHS 01/12/25 01/24/25 ondansetron HCL [Zofran] 8 mg PO Q12HR PRN 01/12/25 01/24/25 Previous Rx's Medication Instructions Recorded Pantoprazole Sodium [Protonix] 40 mg PO BID #60 tab 09/20/24 Acetaminophen Tab [Tylenol] 650 mg PO Q6HR PRN tab 01/15/25 Folic Acid 1 mg PO DAILY 90 Days #90 tab 01/15/25 Magnesium Oxide [Mag-Ox] 400 mg PO BID 90 Days #180 tab 01/15/25 Zinc Sulfate [Orazinc] 220 mg PO DAILY 90 Days #90 cap 01/15/25 oxyCODONE HCL [oxyCODONE HCL (IR)] 10 mg PO Q4H 3 Days #18 tab 03/30/25 Cephalexin [Keflex] 500 mg PO Q12HR 7 Days #14 cap 04/01/25 Allergies Allergy/AdvReac Type Severity Reaction Status Date / Time latex Allergy Rash/Hives Verified 04/02/25 02:44 morphine AdvReac Itching Verified 04/02/25 02:44 Review of Systems ROS Statement: Those systems with pertinent positive or pertinent negative responses have been documented in the HPI. ROS Other: All systems not noted in ROS Statement are negative. Past Medical History Past Medical History: GERD/Reflux, Pulmonary Embolus (PE), Sleep Apnea/CPAP/BIPAP Additional Past Medical History / Comment(s): iron defiency anemia, pulmonary embolism 02/13/24 History of Any Multi-Drug Resistant Organisms: None Reported Past Surgical History: Bariatric Surgery, Section, Cholecystectomy, Tubal Ligation, Uterine Ablation Additional Past Surgical History / Comment(s): 2008 AND 2015 (c/s) and 2010 (cholecyst). 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 gastric bypass 06/11/24 Past Anesthesia/Blood Transfusion Reactions: No Reported Reaction Past Psychological History: Anxiety, Bipolar, Depression Smoking Status: Current some day smoker Past Alcohol Use History: None Reported Past Drug Use History: None Reported - Past Family History Mother Family Medical History: Asthma, COPD, Diabetes Mellitus, Hypertension Additional Family Medical History / Comment(s): depression, anxiety, sleep apnea, Father Family Medical History: Hypertension Additional Family Medical History / Comment(s): arthritis General Exam - General Exam Comments Initial Comments: PHYSICAL EXAM: General Impression: Alert and oriented x3, not in acute distress HEENT: Normocephalic atraumatic, extra-ocular movements intact, pupils equal and reactive to light bilaterally, mucous membranes moist. Cardiovascular: Heart regular rate and rhythm Chest: Able to complete full sentences, no retractions, no tachypnea Abdomen: abdomen soft, non-tender, non-distended, no organomegaly Musculoskeletal: Pulses present and equal in all extremities, no peripheral edema Motor: no focal deficits noted Neurological: CN II-XII grossly intact, no focal motor or sensory deficits noted Skin: Intact with no visualized rashes Psych: Normal affect and mood Course Vital Signs 04/04/25 04/05/25 21:23 00:15 Temperature 99.1 F Pulse Rate 117 H 96 Respiratory 24 16 Rate Blood Pressure 105/63 114/86 O2 Sat by Pulse 99 99 Oximetry Medical Decision Making - Medical Decision Making Was pt. sent in by a medical professional or institution (, PA, CARDIOLOGY CLINICAL CONSULTANT, urgent care, hospital, or detention...) When possible be specific @ -No Did you speak to anyone other than the patient for history (EMS, parent, family, police, friend...)? What history was obtained from this source @ -No Did you review nursing and triage notes (agree or disagree)? Why? @ -I reviewed and agree with nursing and triage notes Were old charts reviewed (outside hosp., previous admission, EMS record, old EKG, old radiological studies, urgent care reports/EKG's, detention records)? Report findings @ -No old charts were reviewed Differential Diagnosis (chest pain, altered mental status, abdominal pain women, abdominal pain men, vaginal bleeding, musculoskeletal, weakness, fever, dyspnea, syncope, headache, dizziness, GI bleed, back pain, seizure, CVA, palpatations, mental health)? @ -Differential Musculoskeletal: Muscular strain, contusion, ligament sprain, fracture, arthritis, septic arthritis, bursitis, cellulitis, muscle spasm, nerve compression, DVT, arterial occlusion, herpes zoster, electrolyte abnormality, tumor.... This is not meant to be in all inclusive list EKG interpreted by me (3pts min.). @ -None done X-rays interpreted by me (1pt min.). @ -None done CT interpreted by me (1pt min.). @ -None done U/S interpreted by me (1pt. min.). @ -None done What testing was considered but not performed or refused? (CT, X-rays, U/S, labs)? Why? @ -None What meds were considered but not given or refused? Why? @ -None Was smoking cessation discussed for >3mins.? @ -No Were there social determinants of health that impacted care today? How? (Homelessness, low income, unemployed, alcoholism, drug addiction, transportati on, low edu. Level, literacy, decrease access to med. care, custodial, rehab)? @ -No Was there de-escalation of care discussed even if they declined (Discuss DNR or withdrawal of care, Hospice)? DNR status @ -No What co-morbidities impacted this encounter? (DM, HTN, Smoking, COPD, CAD, Cancer, CVA, ARF, Chemo, Hep., AIDS, mental health diagnosis, sleep apnea, morbid obesity)? @ -Opiate use disorder Was patient admitted / discharged? Hospital course, mention meds given and route, prescriptions, significant lab abnormalities, going to OR and other pertinent info. @ -34-year-old female with total body pain. She did report constitutional symptoms however afebrile. Vital signs otherwise unremarkable. Laboratory evaluation obtained. Labs unremarkable. Patient well-known to emergency department for multiple visitations for pain related issues. Patient told to follow-up with primary care doctor. Patient discharged Did you discuss the management of the patient with other professionals (pr ofessionals i.e. , PA, CARDIOLOGY CLINICAL CONSULTANT, lab, RT, psych nurse, social media campaign manager, plaster molder, teacher, human resource officer, counter caser)? Give summary @ -No Was critical care preformed (if so, how long)? @ -No Undiagnosed new problem with uncertain prognosis? @ -No Drug Therapy requiring intensive monitoring for toxicity (Heparin, Nitro, Insulin, Cardizem)? @ -No Were any procedures done? @ -No Diagnosis/symptom? Acute, or Chronic, or Acute on Chronic? Uncomplicated (without systemic symptoms) or Complicated (systemic symptoms)? @ -Acute on chronic pain Side effects of treatment? @ -No Exacerbation, Progression, or Severe Exacerbation? @ -No Poses a threat to life or bodily function? How? (Chest pain, [place], [place], pneumonia, PE, COPD, DKA, ARF, appy, cholecystitis, CVA, Diverticulitis, Homicidal, Suicidal, threat to staff... and all critical care pts) @ -No - Lab Data Result diagrams: 04/04/25 23:19 04/04/25 22:24 Lab Results 04/04/25 04/04/25 04/04/25 Range/Units 21:24 22:24 23:19 WBC 10.30 H (4.50-10.00) 10*3/uL RBC 3.29 L (4.10-5.20) 10*6/uL Hgb 9.6 L D (12.0-15.0) g/dL Hct 28.8 L (37.2-46.3) % MCV 87.5 (80.0-97.0) fL MCH 29.2 (27.0-32.0) pg MCHC 33.3 (32.0-37.0) g/dL Plt Count 276 (140-440) 10*3/uL MPV 12.5 H (9.5-12.2) fL Immature Gran % (Auto) 0.3 % Neutrophils % 60.9 % Lymphocytes % 30.7 % Monocytes % 6.9 % Eosinophils % 0.7 % Basophils % 0.5 % Immature Gran # 0.03 (0.00-0.04) 10*3/uL Neutrophils # 6.28 (1.80-7.70) 10*3/uL Lymphocytes # 3.16 (0.90-5.00) 10*3/uL Monocytes # 0.71 (0.20-1.00) 10*3/uL Eosinophils # 0.07 (0.04-0.35) 10*3/uL Basophils # 0.05 (0.00-0.10) 10*3/uL Sodium 140 (137-145) mmol/L Potassium 3.7 (3.5-5.1) mmol/L Chloride 110 H (98-107) mmol/L Carbon Dioxide 22 (22-30) mmol/L Anion Gap 8 mmol/L BUN 8 (7-17) mg/dL Creatinine 0.31 L (0.52-1.04) mg/dL Est GFR (CKD-EPI)AfAm >90 (>60 ml/min/1.73 sqM) Est GFR (CKD-EPI)NonAf >90 (>60 ml/min/1.73 sqM) Glucose 75 (74-99) mg/dL Calcium 8.7 (8.4-10.2) mg/dL Influenza Type A (PCR) Not Detected (Not Detectd) Influenza Type B (PCR) Not Detected (Not Detectd) RSV (PCR) Not Detected (Not Detectd) SARS-CoV-2 (PCR) Not Detected (Not Detectd) Disposition Clinical Impression: Pain Disposition: HOME SELF-CARE Condition: Good Instructions (If sedation given, give patient instructions): Chronic Pain (ED) Is patient prescribed a controlled substance at d/c from ED?: No Referrals: None,Stated [Primary Care Provider] - 1-2 days Time of Disposition: 01:31
[2025-04-04] MEDS: SODIUM CHLORIDE 0.9% 1,000 ML IV STA (21:43)
[2025-04-04] MEDS: HYDROmorphone 1 MG/ML 1 ML SYRINGE IVP STA (21:44)
[2025-04-04 23:15] LABS: African American GFR (CKD) >90 (>60 ml/min/1.73 sqM); Anion Gap 8 mmol/L; Blood Urea Nitrogen 8 mg/dL (7-17); Calcium 8.7 mg/dL (8.4-10.2); Carbon Dioxide 22 mmol/L (22-30); Chloride 110 mmol/L (98-107); Glucose 75 mg/dL (74-99); Non-African American GFR(CKD) >90 (>60 ml/min/1.73 sqM); Potassium 3.7 mmol/L (3.5-5.1); Sodium 140 mmol/L (137-145)
[2025-04-04 23:26] LABS: RSV Not Detected (Not Detectd)
[2025-04-04 23:55] LABS: Basophils # (A) 0.05 10*3/uL (0.00-0.10); Basophils % (A) 0.5 %; Eosinophils # (A) 0.07 10*3/uL (0.04-0.35); Eosinophils % (A) 0.7 %; HCT 28.8 % (37.2-46.3); Lymphocytes # (A) 3.16 10*3/uL (0.90-5.00); Lymphocytes % (A) 30.7 %; MCH 29.2 pg (27.0-32.0); MCHC 33.3 g/dL (32.0-37.0); MCV 87.5 fL (80.0-97.0); Monocytes # (A) 0.71 10*3/uL (0.20-1.00); Monocytes % (A) 6.9 %; Neutrophils # (A) 6.28 10*3/uL (1.80-7.70); Neutrophils % (A) 60.9 %; Platelet Count 276 10*3/uL (140-440); RBC 3.29 10*6/uL (4.10-5.20); RDW 14.8 % (11.5-14.5); WBC 10.30 10*3/uL (4.50-10.00)
[2025-04-05] MEDS: HYDROmorphone 1 MG/ML 1 ML SYRINGE IVP STA (00:11)
[2025-04-05 00:52] LABS: HGB 9.6 g/dL (12.0-15.0)
[2025-04-05 02:59] VITALS: BP 103/66; PULSE 108; RESP 20; TEMP 99.5
== END 2025-04-05 03:13 | disposition home or self-care (01) ==
LOC: EC 21:21
DX: R10.9 Unspecified abdominal pain (principal); G89.29 Other chronic pain; F17.200 Nicotine dependence, unspecified, uncomplicated; Z88.5 Allergy status to narcotic agent; Z91.040 Latex allergy status
CPT/HCPCS: 36415; 80048; 85025; 87636; 99284; 96374; 96361; 96376; J1171

== ENCOUNTER 2025-04-08 22:12 | Emergency (ER) | payer OTHER ==
[2025-04-08 22:33] VITALS: RESP 18
--- NOTE | 2025-04-08 22:44 | ED ---
Abdominal Pain HPI - General Source: patient, EMS, RN notes reviewed, old records reviewed Mode of arrival: EMS Limitations: no limitations - History of Present Illness MD Complaint: abdominal pain, other (Nausea vomiting) -: days(s) Location: epigastric, suprapubic Radiation: epigastric, suprapubic Migration to: suprapubic Severity: moderate Severity scale (1-10): 5 Quality: stabbing Consistency: intermittent Improves With: nothing Worsens With: nothing Associated Symptoms: nausea, vomiting Treatments Prior to Arrival: other <Jose Malin - Last Filed: 04/09/25 00:57> <Luiza Pierson - Last Filed: 04/09/25 05:01> - General Chief Complaint: Abdominal Pain Stated Complaint: abd pain Time Seen by Provider: 04/08/25 22:13 - History of Present Illness Initial Comments: This is a 34-year-old female to the ER for evaluation presented today for evaluation abdominal pain nausea vomiting pelvic pain with vaginal discharge. Patient is concerned for vaginal infection Long history of abdominal surgery with both lap band and gastric bypass. Patient states she has been significantly ill with persistent nausea vomiting, no fevers (Jose Malin) - Related Data Home Medications Medication Instructions Recorded Confirmed Budesonide/Formoterol Fumarate 2 puff INHALATION RT-BID 07/12/24 01/24/25 [Symbicort 160-4.5 Mcg Inhaler] QUEtiapine [SEROquel] 100 mg PO HS 07/12/24 01/24/25 Tiotropium 2.5 Mcg/Puff [Spiriva 2 puff INHALATION RT-DAILY 07/12/24 01/24/25 Respimat 2.5 Mcg] traZODone HCL [Desyrel] 100 mg PO HS 07/12/24 01/24/25 Nicotine 21Mg/24Hr Patch [Habitrol] 1 patch TRANSDERM DAILY 09/07/24 01/24/25 Ferrous Sulfate [Iron (65 MG 325 mg PO DAILY 10/18/24 01/24/25 Elemental)] Propranolol [Inderal] 20 mg PO BID 10/18/24 01/24/25 HYDROcodone/APAP 5-325MG [[place] 1 tab PO BID PRN 11/13/24 01/24/25 5-325] Potassium Chloride ER [K-Dur 20] 20 meq PO Q2D 11/13/24 01/24/25 Gabapentin 300 mg PO TID 01/12/25 01/24/25 Nitrofurantoin Monohyd/M-Cryst 100 mg PO Q12HR 01/12/25 01/24/25 [Macrobid] Prochlorperazine [Compazine] 10 mg PO DAILY PRN 01/12/25 01/24/25 Sucralfate [Carafate] 1 gm PO ACHS 01/12/25 01/24/25 ondansetron HCL [Zofran] 8 mg PO Q12HR PRN 01/12/25 01/24/25 Previous Rx's Medication Instructions Recorded Pantoprazole Sodium [Protonix] 40 mg PO BID #60 tab 09/20/24 Acetaminophen Tab [Tylenol] 650 mg PO Q6HR PRN tab 01/15/25 Folic Acid 1 mg PO DAILY 90 Days #90 tab 01/15/25 Magnesium Oxide [Mag-Ox] 400 mg PO BID 90 Days #180 tab 01/15/25 Zinc Sulfate [Orazinc] 220 mg PO DAILY 90 Days #90 cap 01/15/25 oxyCODONE HCL [oxyCODONE HCL (IR)] 10 mg PO Q4H 3 Days #18 tab 03/30/25 Cephalexin [Keflex] 500 mg PO Q12HR 7 Days #14 cap 04/01/25 Sulfamethox-Tmp 800-160Mg [Bactrim 1 each PO Q12HR 5 Days #10 tab 04/09/25 DS 800-160 mg] Allergies Allergy/AdvReac Type Severity Reaction Status Date / Time latex Allergy Rash/Hives Verified 04/02/25 02:44 morphine AdvReac Itching Verified 04/02/25 02:44 Review of Systems ROS Other: All systems not noted in ROS Statement are negative. <Jose Malin - Last Filed: 04/09/25 00:57> ROS Other: All systems not noted in ROS Statement are negative. <Luiza Pierson - Last Filed: 04/09/25 05:01> ROS Statement: Those systems with pertinent positive or pertinent negative responses have been documented in the HPI. Past Medical History Past Medical History: GERD/Reflux, Pulmonary Embolus (PE), Sleep Apnea/CPAP/BIPAP Additional Past Medical History / Comment(s): iron defiency anemia, pulmonary embolism 02/13/24 History of Any Multi-Drug Resistant Organisms: None Reported Past Surgical History: Bariatric Surgery, Section, Cholecystectomy, Tubal Ligation, Uterine Ablation Additional Past Surgical History / Comment(s): 2008 AND 2015 (c/s) and 2010 (cholecyst). 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 gastric bypass 06/11/24 Past Anesthesia/Blood Transfusion Reactions: No Reported Reaction Past Psychological History: Anxiety, Bipolar, Depression Smoking Status: Current some day smoker Past Alcohol Use History: None Reported Past Drug Use History: None Reported - Past Family History Mother Family Medical History: Asthma, COPD, Diabetes Mellitus, Hypertension Additional Family Medical History / Comment(s): depression, anxiety, sleep apnea, Father Family Medical History: Hypertension Additional Family Medical History / Comment(s): arthritis <Jose Malin Last Filed: 04/09/25 00:57> General Exam Limitations: no limitations General appearance: alert, in no apparent distress Head exam: Present: atraumatic, normocephalic, normal inspection Eye exam: Present: normal appearance, PERRL, EOMI. Absent: scleral icterus, conjunctival injection, periorbital swelling ENT exam: Present: normal exam, mucous membranes moist Neck exam: Present: normal inspection. Absent: tenderness, meningismus, lymphadenopathy Respiratory exam: Present: normal lung sounds bilaterally. Absent: respiratory distress, wheezes, rales, rhonchi, stridor Cardiovascular Exam: Present: regular rate, normal rhythm, normal heart sounds. Absent: systolic murmur, diastolic murmur, rubs, gallop, clicks GI/Abdominal exam: Present: soft, normal bowel sounds. Absent: distended, tenderness, guarding, rebound, rigid Extremities exam: Present: normal inspection, full ROM, normal capillary refill. Absent: tenderness, pedal edema, joint swelling, calf tenderness Back exam: Present: normal inspection Neurological exam: Present: alert, oriented X3, CN II-XII intact Psychiatric exam: Present: normal affect, normal mood Skin exam: Present: warm, dry, intact, normal color. Absent: rash <Jose Malin Last Filed: 04/09/25 00:57> Course <Jose Malin Filed: 04/09/25 00:57> Vital Signs 07/28/25 07/29/25 22:23 02:00 Temperature 99.0 F Pulse Rate 97 87 Respiratory 18 18 Rate Blood Pressure 128/85 127/90 O2 Sat by Pulse 100 95 Oximetry - Reevaluation(s) Reevaluation #1: 04/09/25 00:07 Medical records reviewed (Jose Malin) Reevaluation #4: Was pt. sent in by a medical professional or institution ([employer] Wild, TRANSPORTATION SECURITY SCREENER, urgent care, hospital, or custodial...) When possible be specific @ -no Did you speak to anyone other than the patient for history (EMS, parent, family, police, friend...)? What history was obtained from this source @ -no Did you review nursing and triage notes (agree or disagree)? Why? @ -agree Are old charts reviewed (outside hosp., previous admission, EMS record, old EKG, old radiological studies, urgent care reports/EKG's, custodial records)? Report findings @ -yes Differential Diagnosis (chest pain, altered mental status, abdominal pain women, abdominal pain men, vaginal bleeding, weakness, fever, dyspnea, syncope, headache, dizziness, GI bleed, back pain, seizure, CVA, palpatations, mental health, musculoskeletal)? @ -prior EKG interpreted by me (3pts min.). @ -yes X-rays interpreted by me (1pt min.). @ -yes negative for acute disease CT interpreted by me (1pt min.). @ -no U/S interpreted by me (1pt. min.). @ -no What testing was considered but not performed or refused? (CT, X-rays, U/S, labs)? Why? @ -none What meds were considered but not given or refused? Why? @ -none Did you discuss the management of the patient with other professionals (professionals i.e. [employer], TRANSPORTATION SECURITY SCREENER, lab, RT, psych nurse, health social work professor, coil machine supervisor, teacher, division officer weapons department, correctional case manager)? Give summary @ -no Was smoking cessation discussed for >3mins.? @ -no Was critical care preformed (if so, how long)? @ -no Were there social determinants of health that impacted care today? How? (Homelessness, low income, unemployed, alcoholism, drug addiction, transportation, low edu. Level, literacy, decrease access to med. care, long term, rehab)? @ -none Was there de-escalation of care discussed even if they declined (Discuss DNR or withdrawal of care, Hospice)? DNR status @ -no What co-morbidities impacted this encounter? (DM, HTN, Smoking, COPD, CAD, Cancer, CVA, ARF, Chemo, Hep., AIDS, mental health diagnosis, sleep apnea, morbid obesity)? @ -none Was patient admitted / discharged? Hospital course, mention meds given and route, prescriptions, significant lab abnormalities, going to OR and other pertinent info. @ - Undiagnosed new problem with uncertain prognosis? @ -no Drug Therapy requiring intensive monitoring for toxicity (Heparin, Nitro, Insulin, Cardizem)? @ -no Were any procedures done? @ -no Diagnosis/symptom? @ - Acute, or Chronic, or Acute on Chronic? @ -Acute Uncomplicated (without systemic symptoms) or Complicated (systemic symptoms)? @ -Complicated Side effects of treatment? @ -no Exacerbation, Progression, or Severe Exacerbation? @ -exacerbation Poses a threat to life or bodily function? How? (Chest pain, [place], [place], pneumonia, PE, COPD, DKA, ARF, appy, cholecystitis, CVA, Diverticulitis, Homicidal, Suici graciela, threat to staff... and all critical care pts) @ -yes (Jose Malin) Reevaluation #5: Differential Abdominal Pain Women: Appendicitis, Cholecystitis, diverticulosis, ischemic bowel, pancreatitis, hepatitis, UTI, gastroenteritis, AAA, incarcerated hernia, bowel obstruction, constipation, inflammatory bowel, hepatitis, peptic ulcer disease, splenic infarction, perforated viscus, vulvitis, ovarian torsion, PID, kidney stone, placenta abruption, this is not meant to be an all-inclusive list (Jose Malin) Medical Decision Making - Lab Data Result diagrams: 04/08/25 23:24 04/08/25 23:24 <Jose Malin - Last Filed: 04/09/25 00:57> - Lab Data Result diagrams: 04/08/25 23:24 04/08/25 23:24 <Luiza Pierson - Last Filed: 04/09/25 05:01> - Medical Decision Making Patient signed out to myself pending CT scan. Briefly she is a 34-year-old female presenting for abdominal pain. CT ultimately showed ascending showed findings consistent with colitis versus enteritis. Urinalysis concerning for infection. Patient was recently on Keflex so she was started on Bactrim. (Luiza Pierson) - Lab Data Lab Results 04/08/25 04/08/25 04/08/25 Range/Units 23:24 23:24 23:24 WBC 7.76 (4.50-10.00) 10*3/uL RBC 3.76 L (4.10-5.20) 10*6/uL Hgb 10.9 L (12.0-15.0) g/dL Hct 31.8 L (37.2-46.3) % MCV 84.6 (80.0-97.0) fL MCH 29.0 (27.0-32.0) pg MCHC 34.3 (32.0-37.0) g/dL Plt Count 373 (140-440) 10*3/uL MPV 10.8 (9.5-12.2) fL Immature Gran % (Auto) 0.1 % Neutrophils % 59.9 % Lymphocytes % 33.2 % Monocytes % 5.8 % Eosinophils % 0.5 % Basophils % 0.5 % Immature Gran # 0.01 (0.00-0.04) 10*3/uL Neutrophils # 4.64 (1.80-7.70) 10*3/uL Lymphocytes # 2.58 (0.90-5.00) 10*3/uL Monocytes # 0.45 (0.20-1.00) 10*3/uL Eosinophils # 0.04 (0.04-0.35) 10*3/uL Basophils # 0.04 (0.00-0.10) 10*3/uL PT 11.9 (10.0-12.5) sec INR 1.1 (<1.2) APTT 26.1 (22.0-30.0) sec Sodium 139 (137-145) mmol/L Potassium 3.6 (3.5-5.1) mmol/L Chloride 108 H (98-107) mmol/L Carbon Dioxide 24 (22-30) mmol/L Anion Gap 7 mmol/L BUN 12 (7-17) mg/dL Creatinine 0.38 L (0.52-1.04) mg/dL Est GFR (CKD-EPI)AfAm >90 (>60 ml/min/1.73 sqM) Est GFR (CKD-EPI)NonAf >90 (>60 ml/min/1.73 sqM) Glucose 68 L (74-99) mg/dL Plasma Lactic Acid Case (0.7-2.0) mmol/L Calcium 8.9 (8.4-10.2) mg/dL Total Bilirubin 0.4 (0.2-1.3) mg/dL AST 14 (14-36) U/L ALT 9 (4-34) U/L Alkaline Phosphatase 80 (38-126) U/L Total Protein 5.1 L (6.3-8.2) g/dL Albumin 2.6 L (3.5-5.0) g/dL Amylase 36 (30-110) U/L Lipase 43 (23-300) U/L Urine Color Urine Appearance (Clear) Urine pH (5.0-8.0) Ur Specific [place] (1.001-1.035) Urine Protein (Negative) Urine Glucose (UA) (Negative) Urine Ketones (Negative) Urine Blood (Negative) Urine Nitrite (Negative) Urine Bilirubin (Negative) Urine Urobilinogen (<2.0) mg/dL Ur Leukocyte Esterase (Negative) Urine RBC (0-5) /hpf Urine WBC (0-5) /hpf Ur Squamous Epith Cells (0-4) /hpf Amorphous Sediment (None) /hpf Urine Bacteria (None) /hpf Hyaline Casts (0-2) /lpf Urine Mucus (None) /hpf Urine HCG, Qual (Not Detectd) 04/08/25 04/09/25 04/09/25 Range/Units 23:24 03:35 03:35 WBC (4.50-10.00) 10*3/uL RBC (4.10-5.20) 10*6/uL Hgb (12.0-15.0) g/dL Hct (37.2-46.3) % MCV (80.0-97.0) fL MCH (27.0-32.0) pg MCHC (32.0-37.0) g/dL Plt Count (140-440) 10*3/uL MPV (9.5-12.2) fL Immature Gran % (Auto) % Neutrophils % % Lymphocytes % % Monocytes % % Eosinophils % % Basophils % % Immature Gran # (0.00-0.04) 10*3/uL Neutrophils # (1.80-7.70) 10*3/uL Lymphocytes # (0.90-5.00) 10*3/uL Monocytes # (0.20-1.00) 10*3/uL Eosinophils # (0.04-0.35) 10*3/uL Basophils # (0.00-0.10) 10*3/uL PT (10.0-12.5) sec INR (<1.2) APTT (22.0-30.0) sec Sodium (137-145) mmol/L Potassium (3.5-5.1) mmol/L Chloride (98-107) mmol/L Carbon Dioxide (22-30) mmol/L Anion Gap mmol/L BUN (7-17) mg/dL Creatinine (0.52-1.04) mg/dL Est GFR (CKD-EPI)AfAm (>60 ml/min/1.73 sqM) Est GFR (CKD-EPI)NonAf (>60 ml/min/1.73 sqM) Glucose (74-99) mg/dL Plasma Lactic Acid Case 0.6 L (0.7-2.0) mmol/L Calcium (8.4-10.2) mg/dL Total Bilirubin (0.2-1.3) mg/dL AST (14-36) U/L ALT (4-34) U/L Alkaline Phosphatase (38-126) U/L Total Protein (6.3-8.2) g/dL Albumin (3.5-5.0) g/dL Amylase (30-110) U/L Lipase (23-300) U/L Urine Color Yellow Urine Appearance Cloudy H (Clear) Urine pH 6.0 (5.0-8.0) Ur Specific [place] 1.042 H (1.001-1.035) Urine Protein Trace H (Negative) Urine Glucose (UA) Negative (Negative) Urine Ketones 1+ H (Negative) Urine Blood Trace H (Negative) Urine Nitrite Negative (Negative) Urine Bilirubin Negative (Negative) Urine Urobilinogen 2.0 (<2.0) mg/dL Ur Leukocyte Esterase Moderate H (Negative) Urine RBC 17 H (0-5) /hpf Urine WBC 100 H (0-5) /hpf Ur Squamous Epith Cells 10 H (0-4) /hpf Amorphous Sediment Moderate H (None) /hpf Urine Bacteria Few H (None) /hpf Hyaline Casts 2 (0-2) /lpf Urine Mucus Many H (None) /hpf Urine HCG, Qual Not Detected (Not Detectd) Disposition Is patient prescribed a controlled substance at d/c from ED?: No Time of Disposition: 01:30 <Jose Malin - Last Filed: 04/09/25 00:57> Is patient prescribed a controlled substance at d/c from ED?: No <EnglishLuiza - Last Filed: 04/09/25 05:01> Clinical Impression: Status post bariatric surgery, Abdominal pain, Enteritis, Colitis, UTI (urinary tract infection) Disposition: HOME SELF-CARE Condition: Good Instructions (If sedation given, give patient instructions): Abdominal Pain (ED), Colitis (ED) Additional Instructions: Every disease is a spectrum and a small chance still exists that a serious condition could develop, for this reason, please monitor yourself closely for new, changing or worsening symptoms, symptoms that persist beyond 48 hours, uncontrollable pain fever, inability to tolerate/keep down fluids or your medications, inability to follow up with outpatient providers as instructed and should you experience these symptoms or should you have any further concerns for your wellbeing please return to the ED or call 911 immediately. Please maintain a clear liquid diet for the next 24 hours. You may progress your diet as your pain improves. Please follow-up with your doctor within 1 week to recheck your urine to ensure resolution of infection. PLEASE call your primary care physician as soon as possible to arrange / discuss plan for followup appointment. Appointment in the next 1-3 days is strongly encouraged if possible. PLEASE let us know here before you leave if there is anything further we can do to be of any assistance. Take care and feel Better! Prescriptions: Sulfamethox-Tmp 800-160Mg [Bactrim DS 800-160 mg] 1 each PO Q12HR 5 Days #10 tab Referrals: Justin Molina MD [Primary Care Provider] - 1-2 days
[2025-04-08 23:40] LABS: Basophils # (A) 0.04 10*3/uL (0.00-0.10); Basophils % (A) 0.5 %; Eosinophils # (A) 0.04 10*3/uL (0.04-0.35); Eosinophils % (A) 0.5 %; HCT 31.8 % (37.2-46.3); HGB 10.9 g/dL (12.0-15.0); Lymphocytes # (A) 2.58 10*3/uL (0.90-5.00); Lymphocytes % (A) 33.2 %; MCH 29.0 pg (27.0-32.0); MCHC 34.3 g/dL (32.0-37.0); MCV 84.6 fL (80.0-97.0); Monocytes # (A) 0.45 10*3/uL (0.20-1.00); Monocytes % (A) 5.8 %; Neutrophils # (A) 4.64 10*3/uL (1.80-7.70); Neutrophils % (A) 59.9 %; Platelet Count 373 10*3/uL (140-440); RBC 3.76 10*6/uL (4.10-5.20); RDW 14.6 % (11.5-14.5); WBC 7.76 10*3/uL (4.50-10.00)
[2025-04-08] MEDS: ONDANSETRON 4 MG/2 ML VIAL IVP STA (23:57)
[2025-04-08] MEDS: AZITHROMYCIN 500 MG TAB PO STA (23:57)
[2025-04-08] MEDS: PANTOPRAZOLE 40 MG/10 ML VIAL IVP STA (23:58)
[2025-04-08 23:59] LABS: ALT 9 U/L (4-34); AST 14 U/L (14-36); African American GFR (CKD) >90 (>60 ml/min/1.73 sqM); Albumin 2.6 g/dL (3.5-5.0); Alkaline Phosphatase 80 U/L (38-126); Amylase 36 U/L (30-110); Anion Gap 7 mmol/L; Blood Urea Nitrogen 12 mg/dL (7-17); Calcium 8.9 mg/dL (8.4-10.2); Carbon Dioxide 24 mmol/L (22-30); Chloride 108 mmol/L (98-107); Glucose 68 mg/dL (74-99); Lipase 43 U/L (23-300); Non-African American GFR(CKD) >90 (>60 ml/min/1.73 sqM); Potassium 3.6 mmol/L (3.5-5.1); Sodium 139 mmol/L (137-145); Total Protein 5.1 g/dL (6.3-8.2)
[2025-04-09] MEDS: SODIUM CHLORIDE 0.9% 1,000 ML IV SCH
[2025-04-09] MEDS: cefTRIAXone IN SWFI 1,000 MG/10 ML SYRINGE IVP STA (00:01)
[2025-04-09 00:15] LABS: INR 1.1 (<1.2); Partial Thromboplastin Time 26.1 sec (22.0-30.0); Prothrombin Time 11.9 sec (10.0-12.5)
[2025-04-09] MEDS: HYDROmorphone 1 MG/ML 1 ML SYRINGE IVP STA ×2 (00:43→04:42)
--- NOTE | 2025-04-09 03:08 | US ---
EXAM: US Pelvis Transabdominal, Complete CLINICAL HISTORY: TOA,PID TECHNIQUE: Real-time complete transabdominal pelvic ultrasound with image documentation. COMPARISON: 09/17/2024. FINDINGS: Uterus/cervix: 6.7 x 2.6 x 3.6 cm. Anteverted. Endometrium not distinctly visualized. 5 mm echogenic foci within the endometrium, possibly calcification. No myometrial mass. Right ovary: 2.8 x 1.6 x 2.4 cm. No mass. Normal blood flow. Left ovary: 2.6 x 1.9 x 1.9 cm. No mass. Normal blood flow. Adnexa: No free fluid or adnexal mass. IMPRESSION: Unremarkable ovaries. Previously demonstrated complex ovarian cysts are not identified. No evidence for torsion. Endometrium not distinctly visualized. Endometrial apparent calcification.
--- NOTE | 2025-04-09 03:33 | CT ---
EXAM: CT Abdomen and Pelvis With Intravenous Contrast CLINICAL HISTORY: Abdominal pain TECHNIQUE: Axial computed tomography images of the abdomen and pelvis with intravenous contrast. CTDI is 10 mGy and DLP is 446 mGy-cm. This CT exam was performed using one or more of the following dose reduction techniques: automated exposure control, adjustment of the mA and/or kV according to patient size, and/or use of iterative reconstruction technique. COMPARISON: 01/02/2025. FINDINGS: Lung bases: Unremarkable. No mass. No consolidation. ABDOMEN: Liver: Enlarged 19.0 cm length. Mildly hypodense/fatty. No mass. Gallbladder and bile ducts: Post cholecystectomy. No ductal dilation. Pancreas: Unremarkable. No mass. No ductal dilation. Spleen: Unremarkable. No splenomegaly. Adrenals: Unremarkable. No mass. Kidneys and ureters: No obstructive uropathy. No obstructing renal or ureteral calculi. No hydronephrosis or hydroureter. Stomach and bowel: Postoperative changes of the stomach and small bowel. Mild dilatation of proximal small bowel loops of scattered air- fluid levels. No bowel obstruction. Right and transverse colon wall thickening. No evidence for diverticulitis. PELVIS: Appendix: No findings to suggest acute appendicitis. Bladder: Well distended. No mass. Reproductive: Uterus and ovaries are grossly unremarkable. ABDOMEN and PELVIS: Intraperitoneal space: No free air. No free fluid. Bones/joints: No acute fracture. Soft tissues: Mild diffuse subcutaneous infiltration. Vasculature: Unremarkable. No abdominal aortic aneurysm. Lymph nodes: Unremarkable. No enlarged lymph nodes. IMPRESSION: Right and transverse colon wall thickening consistent with a nonspecific colitis. Air-fluid levels in nondilated small bowel suggesting nonspecific enteritis. Enlarged hypodense/fatty liver. Mild diffuse subcutaneous edema, possibly related to liver disease.
[2025-04-09 04:51] LABS: Amorphous Sediment,Urine Moderate /hpf; Bacteria,Urine Few /hpf; Bilirubin,Urine Negative (Negative); Blood,Urine Trace (Negative); Color,Urine Yellow; Glucose,Urine (UA) Negative (Negative); Hyaline Casts,Urine 2 /lpf (0-2); Ketones,Urine 1+ (Negative); Leukocyte Esterase,Urine Moderate (Negative); Mucus,Urine Many /hpf; Nitrite,Urine Negative (Negative); PH, Urine 6.0 (5.0-8.0); Protein,Urine Trace (Negative); RBC,Urine 17 /hpf (0-5); Specific Gravity,Urine 1.042 (1.001-1.035); Squamous Epithelial Cell,Urine 10 /hpf (0-4); Urobilinogen,Urine 2.0 mg/dL (<2.0); WBC,Urine 100 /hpf (0-5)
[2025-04-09 06:06] VITALS: BP 118/82; PULSE 98; TEMP 98.8
[2025-04-10 12:52] LABS: C. trachomatis,PCR Negative (Negative)
[2025-04-10 13:10] LABS: N. gonorrhoeae,PCR Negative (Negative)
== END 2025-04-09 06:00 | disposition home or self-care (01) ==
LOC: EC 22:12
DX: K52.9 Noninfective gastroenteritis and colitis, unspecified (principal); N39.0 Urinary tract infection, site not specified; Z98.84 Bariatric surgery status; F17.200 Nicotine dependence, unspecified, uncomplicated; Z88.5 Allergy status to narcotic agent; Z91.040 Latex allergy status
CPT/HCPCS: 80053; 82150; 83605; 83690; 85025; 85610; 85730; 93975; 76856; 99284; 96374; 96375 ×2; 96376; 96361; J2405; J2470; 36415; 74177; 81001; 81025; 87491; 87591